=== PATIENT | male | born 1955 | race African-American/Black ===

== ENCOUNTER → 2021-05-16 | Outpatient (CLI) | payer OTHER ==
--- NOTE | 2021-05-16 12:43 | CT ---
EXAMINATION TYPE: CT abdomen wo con DATE OF EXAM: 05/16/2021 HISTORY: Upper Abdominal pain and distension CT DLP: 697.9 mGycm. Automated Exposure Control for Dose Reduction was Utilized. TECHNIQUE: CT scan of the abdomen is performed with oral but without IV contrast as requested. COMPARISON: NONE FINDINGS: Within the limitations of a non-contrast study, the following observations are made. LUNG BASES: No significant abnormality is appreciated. LIVER/GB: No significant abnormality is appreciated. PANCREAS: No significant abnormality is seen. SPLEEN: No significant abnormality is seen. ADRENALS: No significant abnormality is seen. KIDNEYS: No significant abnormality is seen. BOWEL: Oral contrast does not reach level of the terminal ileum making evaluation of distal bowel sli ghtly suboptimal. Normal-appearing appendix from cecum. There are scattered colonic diverticula great est in the transverse and visualized portion of the sigmoid colon. No CT evidence for acute diverticu litis. No suspicious small or large bowel dilatation. LYMPH NODES: No greater than 1cm abdominal lymph nodes are appreciated. OSSEOUS STRUCTURES: Straightening of spine with mild to moderate multilevel anterior and lateral spur ring. Multilevel facet arthropathy in the lower lumbar spine. OTHER: No significant additional abnormality is seen. IMPRESSION: Scattered colonic diverticulosis without CT evidence for acute diverticulitis. No bowel o bstruction or intra-abdominal ascites. No acute findings evident.
== END | disposition home or self-care (01) ==
LOC: RADCTMAIN 11:58
DX: K57.30 Diverticulosis of large intestine without perforation or abscess without bleeding (principal)
CPT/HCPCS: 74150

== ENCOUNTER 2021-07-09 06:44 | Day surgery (SDC) | payer OTHER ==
[2021-07-08 10:01] VITALS: BMI 30.5
[2021-07-09] MEDS: LACTATED RINGERS 1,000 ML IV SCH ×2 (07:30→07:56)
[2021-07-09 07:32] VITALS: RESP 16; TEMP 96.4
[2021-07-09 07:33] LABS: Glucose,Whole Blood 144 mg/dL (75-99)
[2021-07-09] MEDS ORDERED: PROPOFOL 10 MG/ML 20 ML VIAL IV ONE (08:04)
--- NOTE | 2021-07-09 08:21 | P.PCN ---
Date of Procedure: 07/09/21 Procedure(s) Performed: BRIEF HISTORY: Patient is a 65-year-old pleasant [place]ian male scheduled for an elective colonoscopy as a part of screening for colorectal neoplasia. PROCEDURE PERFORMED: Colonoscopy. PREOPERATIVE DIAGNOSIS: Screening for colon cancer. IV sedation per Anesthesia. PROCEDURE: After informed consent was obtained, the patient, was brought into the endoscopy unit. IV sedation was administered by Anesthesia under continuous monitoring. Digital rectal examination was normal. Initially the Olympus CF-160 flexible video colonoscope was then inserted in the rectum, gradually advanced into the cecum without any difficulty. Careful examination was performed as the scope was gradually being withdrawn. Ileocecal valve and the appendiceal orifice were visualized and appeared normal. Prep was excellent. Mucosa of the cecum, ascending colon, transverse colon, descending colon, sigmoid colon, and rectum appeared normal. Scattered diffuse diverticulosis seen. Retroflexion was performed in the rectum and grade 2 internal hemorrhoids were seen. The patient tolerated the procedure well. IMPRESSION: Normal-appearing colon from rectum to cecum with no evidence of colorectal neoplasia Scattered diffuse diverticulosis Grade 2 internal hemorrhoids RECOMMENDATIONS: Findings of this examination were discussed with the patient as well as his family. He was advised to have a repeat screening colonoscopy in 10 years..
[2021-07-09 09:23] VITALS: BP 135/94; PULSE 85
== END 2021-07-09 09:10 | disposition home or self-care (01) ==
LOC: ORWHC2ENDO 06:44
PROVIDERS: ATTEND Internal Medicine Gastroenterology
DX: Z12.11 Encounter for screening for malignant neoplasm of colon (principal)
CPT/HCPCS: 45378; J2704

== ENCOUNTER 2022-03-29 08:00 | Emergency (ER) | payer OTHER ==
[2022-03-29 08:08] VITALS: BP 108/67; PULSE 110; RESP 20; TEMP 97.5
[2022-03-29] MEDS ORDERED: predniSONE 50 MG TAB PO STA (08:45)
[2022-03-29] MEDS ORDERED: diphenhydrAMINE 50 MG CAP PO STA (08:45)
[2022-03-29] MEDS ORDERED: FAMOTIDINE 20 MG TAB PO STA (08:45)
--- NOTE | 2022-03-29 08:46 | ED ---
General Adult HPI - General Chief complaint: Skin/Abscess/Foreign Body Stated complaint: Rash Time Seen by Provider: 03/29/22 08:09 Source: patient, RN notes reviewed Mode of arrival: ambulatory Limitations: no limitations - History of Present Illness Initial comments: 66-year-old male present emergency department with chief complaint of ALLERGIC reaction. Patient states he has facial swelling, itchiness.. He states his started overnight significant eating food. Patient states it for. Patient did not take any current medications he does feel the symptoms are improving denies any shortness breath or any difficulty swallowing. Patient has NO KNOWN DRUG ALLERGIES no recent medication changes. - Related Data Home Medications Medication Instructions Recorded Confirmed Metformin (Unknown Dose) 1 tab PO DAILY 07/08/21 07/09/21 Triamterene/Hydrochlorothiazid 1 each PO DAILY 07/08/21 07/09/21 [Triamterene-Hctz 75-50 mg Tab] amLODIPine [Norvasc] 10 mg PO DAILY 07/08/21 07/09/21 Previous Rx's Medication Instructions Recorded diphenhydrAMINE [Benadryl] 50 mg PO QID PRN #20 capsule 03/29/22 predniSONE 50 mg PO DAILY #3 tab 03/29/22 Allergies Allergy/AdvReac Type Severity Reaction Status Date / Time No Known Allergies Allergy Verified 03/29/22 08:08 Review of Systems ROS Statement: Those systems with pertinent positive or pertinent negative responses have been documented in the HPI. ROS Other: All systems not noted in ROS Statement are negative. Past Medical History Past Medical History: Diabetes Mellitus, GERD/Reflux, Hyperlipidemia, Hypertension History of Any Multi-Drug Resistant Organisms: None Reported Past Surgical History: No Surgical Hx Reported Past Anesthesia/Blood Transfusion Reactions: No Reported Reaction Additional Past Anesthesia/Blood Transfusion Reaction / Comment(s): Has never had General Anesthesia. Past Psychological History: No Psychological Hx Reported Smoking Status: Never smoker Past Alcohol Use History: Occasional Past Drug Use History: Marijuana - Past Family History Mother Family Medical History: Cancer General Exam Limitations: no limitations General appearance: alert, in no apparent distress Head exam: Present: atraumatic, normocephalic, normal inspection Eye exam: Present: normal appearance, PERRL, EOMI. Absent: scleral icterus, conjunctival injection, periorbital swelling ENT exam: Present: normal exam, normal oropharynx, mucous membranes moist Neck exam: Present: normal inspection, full ROM. Absent: tenderness, meningismus, lymphadenopathy Respiratory exam: Present: normal lung sounds bilaterally. Absent: respiratory distress, wheezes, rales, rhonchi, stridor Cardiovascular Exam: Present: regular rate, normal rhythm, normal heart sounds. Absent: systolic murmur, diastolic murmur, rubs, gallop, clicks GI/Abdominal exam: Present: soft, normal bowel sounds. Absent: distended, tenderness, guarding, rebound, rigid Course Vital Signs 03/29/22 08:06 Temperature 97.5 F L Pulse Rate 110 H Respiratory 20 Rate Blood Pressure 108/67 O2 Sat by Pulse 98 Oximetry Medical Decision Making - Medical Decision Making Patient was treated for ALLERGIC reaction of present, Benadryl. Patient will be discharged in stable condition return parameters were discussed. Disposition Clinical Impression: Allergic reaction Disposition: HOME SELF-CARE Condition: Stable Instructions (If sedation given, give patient instructions): General Allergic Reaction (ED) Additional Instructions: Please return to the Emergency Department if symptoms worsen or any other concerns. Prescriptions: diphenhydrAMINE [Benadryl] 50 mg PO QID PRN #20 capsule PRN Reason: Allergic Reaction predniSONE 50 mg PO DAILY #3 tab Is patient prescribed a controlled substance at d/c from ED?: No Referrals: [facility],Clinic [Primary Care Provider] - 1-2 days Time of Disposition: 08:46
== END 2022-03-29 08:54 | disposition home or self-care (01) ==
LOC: EC 08:00
DX: T78.40XA Allergy, unspecified, initial encounter (principal); I10 Essential (primary) hypertension; E11.9 Type 2 diabetes mellitus without complications; K21.9 Gastro-esophageal reflux disease without esophagitis; E78.5 Hyperlipidemia, unspecified; F12.90 Cannabis use, unspecified, uncomplicated; Z79.84 Long term (current) use of oral hypoglycemic drugs; Z79.83 Long term (current) use of bisphosphonates; Z79.899 Other long term (current) drug therapy
CPT/HCPCS: 99283; J7512

== ENCOUNTER 2022-07-03 21:41 | Observation (INO) | payer OTHER ==
[2022-07-03] MEDS ORDERED: DEXAMETHASONE SOD PHOSPHATE 10 MG/ML 1 ML VIAL IM STA (22:08)
[2022-07-03] MEDS ORDERED: hydrOXYzine HCL 50 MG/ML 1 ML VIAL IM STA (22:09)
[2022-07-03] MEDS ORDERED: FAMOTIDINE 20 MG TAB PO STA (22:09)
--- NOTE | 2022-07-03 22:25 | ED ---
Skin/Abscess/FB HPI - General Chief complaint: Skin/Abscess/Foreign Body Stated complaint: Allergic reaction Time Seen by Provider: 07/03/22 22:03 Source: patient, RN notes reviewed Mode of arrival: ambulatory Limitations: no limitations - History of Present Illness Initial comments: This is a pleasant 66-year-old male with a history of diabetes mellitus, hypertension, and hyperlipidemia. Patient states he started getting hives a few hours ago. Patient describing generalized hives on the torso and extremities with itching. Patient took 2 Benadryl and it did improve somewhat. Patient states she had some puffiness around his eyes. No oral or throat symptoms. No wheezing or shortness of breath. Patient states he smoked some marijuana, otherwise was not exposed to anything out of the ordinary. No new foods. No new medications. No new detergents. Has not had any fever or chills. No pain. No headache, no fever or chills, no changes in vision or hearing, no sore throat or difficulty with speech, no neck pain, no chest pain or shortness of breath, no abdominal pain, no nausea or vomiting, no changes in urination or bowel movements, no numbness or tingling, no extremity pain, no skin rashes or lesions. Past medical, surgical, social, and family history reviewed. - Related Data Home Medications Medication Instructions Recorded Confirmed Metformin (Unknown Dose) 1 tab PO DAILY 07/08/21 07/09/21 Triamterene/Hydrochlorothiazid 1 each PO DAILY 07/08/21 07/09/21 [Triamterene-Hctz 75-50 mg Tab] amLODIPine [Norvasc] 10 mg PO DAILY 07/08/21 07/09/21 Previous Rx's Medication Instructions Recorded diphenhydrAMINE [Benadryl] 50 mg PO QID PRN #20 capsule 03/29/22 predniSONE 50 mg PO DAILY #3 tab 03/29/22 Famotidine [Pepcid] 20 mg PO BID #10 tablet 07/03/22 Allergies Allergy/AdvReac Type Severity Reaction Status Date / Time No Known Allergies Allergy Verified 07/03/22 21:58 Review of Systems ROS Statement: Those systems with pertinent positive or pertinent negative responses have been documented in the HPI. ROS Other: All systems not noted in ROS Statement are negative. Past Medical History Past Medical History: Diabetes Mellitus, GERD/Reflux, Hyperlipidemia, Hypertension History of Any Multi-Drug Resistant Organisms: None Reported Past Surgical History: No Surgical Hx Reported Past Anesthesia/Blood Transfusion Reactions: No Reported Reaction Additional Past Anesthesia/Blood Transfusion Reaction / Comment(s): Has never had General Anesthesia. Past Psychological History: No Psychological Hx Reported Smoking Status: Never smoker Past Alcohol Use History: Occasional Past Drug Use History: Marijuana - Past Family History Mother Family Medical History: Cancer General Exam - General Exam Comments Initial Comments: She does have some puffiness around his eyes. No erythema. No evidence of infectious process. Oropharynx is clear. There is no respiratory distress. Vital signs stable, patient afebrile. No distress, cranial nerves II through XII grossly intact Limitations: no limitations General appearance: alert, in no apparent distress Head exam: Present: atraumatic, normocephalic, normal inspection Eye exam: Present: normal appearance, PERRL, EOMI. Absent: scleral icterus, conjunctival injection, periorbital swelling ENT exam: Present: normal exam, normal oropharynx, mucous membranes dry, mucous membranes moist, normal external ear exam Neck exam: Present: normal inspection, full ROM. Absent: tenderness, meningismus, lymphadenopathy Respiratory exam: Present: normal lung sounds bilaterally. Absent: respiratory distress, wheezes, rales, rhonchi, stridor, chest wall tenderness, accessory muscle use, decreased breath sounds, prolonged expiratory Cardiovascular Exam: Present: regular rate, normal rhythm, normal heart sounds. Absent: systolic murmur, diastolic murmur, rubs, gallop, clicks GI/Abdominal exam: Present: soft, normal bowel sounds. Absent: distended, tenderness, guarding, rebound, rigid Extremities exam: Present: normal inspection, full ROM, normal capillary refill. Absent: tenderness, pedal edema, joint swelling, calf tenderness Back exam: Present: normal inspection Neurological exam: Present: alert, oriented X3, CN II-XII intact. Absent: motor sensory deficit Psychiatric exam: Present: normal affect, normal mood Skin exam: Present: warm, dry, intact, normal color, urticaria (Mild noted on the torso, no palmar or plantar lesions). Absent: rash, cyanosis, diaphoretic, erythema, vesicles, petechiae, pallor, mottled, abrasion Course Vital Signs 07/03/22 21:55 Temperature 98.1 F Pulse Rate 101 H Respiratory 20 Rate Blood Pressure 106/80 O2 Sat by Pulse 98 Oximetry - Reevaluation(s) Reevaluation #1: 07/03/22 23:01 Medical record is reviewed Symptoms are improved here in the emergency department Patient is informed of results and questions answered Patient in no distress Medical Decision Making - Medical Decision Making Patient presents with nonspecific urticaria. Did not appear to be consistent with anaphylactic reaction. No adventitious lung sounds. No distress. We will give one dose of dexamethasone as the patient is diabetic. We'll then treated with 3-4 days of antihistamines. She'll plan discussed with the patient. Strict return parameters. Patient concurs with this treatment plan. Suspect the patient may have reacted to something in the marijuana. However, other antigens could be within the differential. Appear to be consistent with systemic disease or gallbladder disease. Not consistent with erythema multiforme or dangerous skin infections or inflammatory reaction such as Khan-Florian syndrome. Patient was told to return to the ER for any signs or symptoms worsen. Told to return immediately if any other problems arise. All questions answered. Treatment plan discussed. Patient in agreement Every effort has been made to ensure accuracy of this dictation. However, due to the limitations of electronic medical records and dictation devices, errors in charting still occur. Supervising physician Dr. Kirkland Disposition Clinical Impression: Urticaria Disposition: HOME SELF-CARE Condition: Good Instructions (If sedation given, give patient instructions): Urticaria (ED) Additional Instructions: Continue Benadryl as directed on the bottle for the next 3-4 days. Follow-up with your regular physician as directed. Return to the ER immediately if any symptoms worsen, new symptoms arise, or any other problems develop. Is patient prescribed a controlled substance at d/c from ED?: No Referrals: [facility],Clinic [Primary Care Provider] - 1-2 days Time of Disposition: 23:02
[2022-07-04 01:27] LABS: Glucose,Whole Blood 178 mg/dL (70-110)
[2022-07-04] MEDS ORDERED: NALOXONE 0.4 MG/ML 1 ML VIAL IV PRN (02:10)
[2022-07-04] MEDS ORDERED: ONDANSETRON 4 MG/2 ML VIAL IVP PRN (02:10)
[2022-07-04] MEDS ORDERED: ACETAMINOPHEN TAB 325 MG TAB PO PRN (02:10)
[2022-07-04] MEDS ORDERED: IPRATROPIUM-ALBUTEROL 3 ML NEB INHALATION STA (02:12)
[2022-07-04] MEDS ORDERED: ALBUTEROL NEBULIZED 2.5 MG/3 ML INHALATION PRN (02:12)
[2022-07-04] MEDS ORDERED: DEXTROSE 50% SYRINGE 50 ML IVP PRN ×2 (02:13)
[2022-07-04] MEDS ORDERED: SODIUM CHLORIDE 0.9% 1,000 ML IV SCH (02:15)
[2022-07-04] MEDS: SODIUM CHLORIDE 0.9% 1,000 ML IV STA ×2 (02:43)
[2022-07-04 02:46] LABS: ALT 39 U/L (4-49); AST 36 U/L (17-59); African American GFR (CKD) >90 (>60 ml/min/1.73 sqM); Albumin 4.8 g/dL (3.5-5.0); Alkaline Phosphatase 81 U/L (38-126); Anion Gap 11 mmol/L; Blood Urea Nitrogen 18 mg/dL (9-20); Calcium 10.2 mg/dL (8.4-10.2); Carbon Dioxide 24 mmol/L (22-30); Chloride 101 mmol/L (98-107); Glucose 184 mg/dL (74-99); Non-African American GFR(CKD) 84 (>60 ml/min/1.73 sqM); Potassium 4.2 mmol/L (3.5-5.1); Sodium 136 mmol/L (137-145); Total Bilirubin 0.7 mg/dL (0.2-1.3); Total Protein 8.3 g/dL (6.3-8.2)
[2022-07-04 02:49] LABS: Basophils % (A) 0 %; Eosinophils # (A) 0.2 k/uL (0-0.7); Eosinophils % (A) 1 %; HCT 45.8 % (39.0-53.0); HGB 15.1 gm/dL (13.0-17.5); Hypochromasia Slight; Lymphocytes # (A) 1.4 k/uL (1.0-4.8); Lymphocytes % (A) 10 %; MCH 24.8 pg (25.0-35.0); MCHC 32.9 g/dL (31.0-37.0); MCV 75.5 fL (80.0-100.0); Mean Platelet Volume 7.3; Microcytosis Slight; Monocytes # (A) 0.3 k/uL (0-1.0); Monocytes % (A) 2 %; Neutrophils # (A) 12.7 k/uL (1.3-7.7); Neutrophils % (A) 87 %; Platelet Count 533 k/uL (150-450); RBC 6.08 m/uL (4.30-5.90); RDW 13.9 % (11.5-15.5); WBC 14.6 k/uL (3.8-10.6)
--- NOTE | 2022-07-04 05:04 | P.HPIM ---
History of Present Illness H&P Date: 07/04/22 Chief Complaint: skin rash 66 year old male with DM , hypertension patient coming in due to sudden onset urticarial type of rash over his abd and extremities. patient denies any changes in his meds. however he does admit to smoking some marijuana that is flavored and almost immediately after he started noticed these skin changes. he never experienced any similar reaction in the past , and denies any allergies he was noted later to having tongue swelling , but denies any difficulty in breathing, or swallowing . patient was given H2 blockers, benadryl, epi, and steriods in the ED to help control his symptoms during the interview he continues to have muffled speech blood work showd leukocytosis and microcytosis without anemia , he denies any GI bleeding Review of Systems Pertinent positives as noted in HPI. All other systems were reviewed and are negative Past Medical History Past Medical History: Diabetes Mellitus, GERD/Reflux, Hyperlipidemia, Hypertension History of Any Multi-Drug Resistant Organisms: None Reported Past Surgical History: No Surgical Hx Reported Past Anesthesia/Blood Transfusion Reactions: No Reported Reaction Additional Past Anesthesia/Blood Transfusion Reaction / Comment(s): Has never had General Anesthesia. Past Psychological History: No Psychological Hx Reported Smoking Status: Never smoker Past Alcohol Use History: Occasional Past Drug Use History: Marijuana - Past Family History Mother Family Medical History: Cancer Medications and Allergies Home Medications Medication Instructions Recorded Confirmed Type Metformin (Unknown Dose) 1 tab PO DAILY 07/08/21 07/09/21 History Triamterene/Hydrochlorothiazid 1 each PO DAILY 07/08/21 07/09/21 History [Triamterene-Hctz 75-50 mg Tab] amLODIPine [Norvasc] 10 mg PO DAILY 07/08/21 07/09/21 History diphenhydrAMINE [Benadryl] 50 mg PO QID PRN #20 capsule 03/29/22 Rx predniSONE 50 mg PO DAILY #3 tab 03/29/22 Rx Famotidine [Pepcid] 20 mg PO BID #10 tablet 07/03/22 Rx Allergies Allergy/AdvReac Type Severity Reaction Status Date / Time No Known Allergies Allergy Verified 07/03/22 21:58 Physical Exam Vitals: Vital Signs Temp Pulse Resp BP Pulse Ox 07/04/22 03:17 89 18 103/85 97 07/04/22 03:07 88 07/04/22 02:52 87 07/04/22 02:44 87 16 122/78 98 07/04/22 00:35 95 16 119/86 98 07/03/22 21:55 98.1 F 101 H 20 106/80 98 Intake and Output 07/03/22 07/03/22 07/04/22 14:59 22:59 06:59 Other: Weight 93.44 kg Constitutional: No acute distress, muffled speech Eyes: Anicteric sclerae, moist conjunctiva, Pupils equal round reactive to light ENMT: NC/AT swollen tongue with loss of rugae, no drooling , no stridors Oropharynx clear, no erythema, or exudates Neck: Supple, no masses, or JVD No carotid bruits No thyromegaly Lungs: Clear to auscultation Clear to percussion Normal respiratory effort, no accessory muscle use Cardiovascular: Heart regular in rate and rhythm, No murmurs, gallops, or rubs No peripheral edema Abdominal: Soft Nontender, no guarding, rebound or rigidity Abdomen moving with respiration Normoactive bowel sounds No hepatomegaly, No splenomegaly No palpable mass No abdominal wall hernia noted Skin: Normal temperature, tone, texture, turgor No induration No subcutaneous nodules No rash, lesions No ulcers Extremities: No digital cyanosis No clubbing Pedal pulses intact and symmetrical Radial pulses intact and symmetrical No calf tenderness Psychiatric: Alert and oriented to person, place and time Appropriate affect fair judgement Neuro Muscles Strength 5/5 in all 4 extremities Sensation to light touch grossly present throughout Cranial nerves II-XII grossly intact Lymphatics: no palpable cervical or supraclavicular lymph nodes Results CBC & Chem 7: 07/04/22 02:31 07/04/22 02:31 Labs: Abnormal Lab Results - Last 24 Hours (Table) 07/04/22 07/04/22 07/04/22 Range/Units 01:24 02:31 02:31 WBC 14.6 H (3.8-10.6) k/uL RBC 6.08 H (4.30-5.90) m/uL MCV 75.5 L (80.0-100.0) fL MCH 24.8 L (25.0-35.0) pg Plt Count 533 H (150-450) k/uL Neutrophils # 12.7 H (1.3-7.7) k/uL Sodium 136 L (137-145) mmol/L Glucose 184 H (74-99) mg/dL POC Glucose (mg/dL) 178 H (70-110) mg/dL Total Protein 8.3 H (6.3-8.2) g/dL Assessment and Plan Assessment: acute allergic reaction with angioedema s/p steriods , H2 blockers, antihistamine , and epi continue to monitor airways supportive care monitor vital signs cardiac tele chronic conditions DM hypertension resume home meds insulin sliding scale full code DVT PPX heparin sc tid
[2022-07-04 07:29] LABS: Glucose,Whole Blood 188 mg/dL (70-110)
[2022-07-04] MEDS: INSULIN ASPART (NovoLOG) 100 UNIT/ML VIAL SQ SCH ×2 (07:37→13:34)
[2022-07-04] MEDS ORDERED: HEPARIN SODIUM,PORCINE/PF 5,000 UNIT/0.5 ML SYRINGE SQ SCH (08:00)
[2022-07-04 13:19] LABS: Glucose,Whole Blood 118 mg/dL (70-110)
--- NOTE | 2022-07-04 13:40 | P.DS ---
Providers Date of admission: 07/04/22 05:11 Expected date of discharge: 07/04/22 Attending physician: Sharron Faye MD Primary care physician: [facility] Hospital Course: Discharge Diagnosis: Anaphylaxis with angioedema, patient was given intramuscular epinephrine 0.3 mg 1 dose, Pepcid, Vistaril, and Decadron. He was admitted to observation unit and closely monitored for any rebound signs. Patient had full resolution of angioedema and rash. Patient monitored for greater than 8 hours after receiving intramuscular epinephrine showing no signs of rebound effect. Patient medically stable for discharge at this time he was advised to avoid any and all contact with previously purchased marijuana in which pt reported triggered this ALLERGIC reaction, pt verbalized understanding. Patient being discharged home with epinephrine pen to be used only if patient ever experiences severe ALLERGIC reaction again and patient was instructed if he needed to use he must go straight to the hospital or call 911 if he will require close medical monitoring to ensure no rebound reactions occur. Hypertension, monitor home blood pressure and continue daily medication regimen with amlodipine in benazepril Hyperlipidemia, continue daily medication regimen with atorvastatin. Type II icv-ckjzzrn-rmqxdqrrn diabetes mellitus, continue daily medication regimen with metformin 500 mg twice a day. GERD, continue daily medication regimen with omeprazole. Hospital Course: Patient is a very pleasant 66-year-old male with a past medical history of hypertension, hyperlipidemia, type II eou-cazhkob-fharobmhy diabetes mellitus, and GERD. He presented to the emergency department with a chief complaint of urticarial rash covering his abdomen and upper extremities. Patient denied having any changes in medications, eating different foods, new soaps or lotions, or new laundry detergent or cleaning supplies. He does however report smoking some flavored marijuana and immediately began noticing an itchy rash to appear first just around his mouth and quickly spread. Shortly after rash was covering abdomen and upper extremities he began noticing some swelling in his tongue and came to the ER for evaluation. CBC and CMP reviewed. CBC showing WBC count of 14.6 with elevated neutrophils of 12.7 and thrombocytosis with platelet count of 533. Labs otherwise showing no significant abnormalities. In the emergency department patient was given intramuscular epinephrine 0.3 mg 1 dose, Pepcid, Vistaril, and Decadron. Patient admitted under our services to observation unit for continued monitoring to observe for any rebound signs or symptoms. Patient had full resolution of angioedema and rash. Patient monitored for greater than 8 hours after receiving intramuscular epinephrine showing no signs of rebound effect. Patient medically stable for discharge at this time he was advised to avoid any and all contact with previously purchased marijuana in which pt reported triggered this ALLERGIC reaction, pt verbalized understanding. Patient being discharged home with epinephrine pen to be used only if patient ever experiences severe ALLERGIC reaction again and patient was instructed if he needed to use he must go straight to the hospital or call 911 if he will require close medical monitoring to ensure no rebound reactions occur. Patient medically stable for discharge home at this time and to follow up outpatient with his PCP in 1-2 days. Physical exam: Vital signs reviewed and stable. General: Nontoxic, no distress and appears stated age. Derm: Skin warm and dry, normal coloration for ethnicity. No rash or hives noted. Head: Atraumatic, normocephalic and symmetric. Eyes: EOMs intact, no lid lag, and anicteric sclera Mouth: no lip lesions, mucus membranes moist. No angioedema. Cardiovascular: regular rate and rhythm with normal S1S2, no murmur, positive posterior tibial pulses bilaterally, and cap refill < 2 seconds. Lungs: Respirations even, regular, and unlabored on room air. Lungs CTA bilaterally, no rhonchi, no rales, no wheezing, and no accessory muscle usage. Abdominal: soft, nontender to palpation, no guarding, no appreciable organomegaly Ext: ROM intact. No gross muscle atrophy, no edema, no contractures Neuro: Speech clear, face symmetrical and CN II-XII grossly intact with no noted focal neuro deficits Psych: Alert and oriented to person, place, time, and situation. Appropriate and pleasant affect. A total of 35 minutes of time were spent preparing this complex discharge summary. Pt was discharged on 07/04/22 at 1:23 PM. Timur Izquierdo NP rendered care for this patient independently, reviewed the findings and plan as documented in the note above. I did not physically speak with or examine the patient on this date. Patient Condition at Discharge: Stable Plan - Discharge Summary New Discharge Prescriptions: New Famotidine [Pepcid] 20 mg PO BID #10 tablet EPINEPHrine (Auto Inject) [Epipen] 0.3 mg IM ONCE PRN #1 each PRN Reason: Anaphylaxis Continue amLODIPine [Norvasc] 10 mg PO DAILY Benazepril HCl 20 mg PO DAILY metFORMIN HCL [Glucophage] 500 mg PO BID Omeprazole 20 mg PO DAILY Atorvastatin [Lipitor] 80 mg PO DAILY Discharge Medication List amLODIPine [Norvasc] 10 mg PO DAILY 07/08/21 [History] Famotidine [Pepcid] 20 mg PO BID #10 tablet 07/03/22 [Rx] Atorvastatin [Lipitor] 80 mg PO DAILY 07/04/22 [History] Benazepril HCl 20 mg PO DAILY 07/04/22 [History] EPINEPHrine (Auto Inject) [Epipen] 0.3 mg IM ONCE PRN #1 each 07/04/22 [Rx] Omeprazole 20 mg PO DAILY 07/04/22 [History] metFORMIN HCL [Glucophage] 500 mg PO BID 07/04/22 [History] Follow up Appointment(s)/Referral(s): [facility],Clinic [Primary Care Provider] - 1-2 days Patient Instructions/Handouts: Urticaria (ED), Anaphylaxis (DC) Activity/Diet/Wound Care/Special Instructions: Continue Benadryl as directed on the bottle for the next 3-4 days. Follow-up with your regular physician as directed. Return to the ER immediately if any symptoms return, new symptoms arise, or any other problems develop. Discharge Disposition: HOME SELF-CARE
[2022-07-04 19:12] VITALS: BP 135/87; PULSE 87; RESP 19; TEMP 98.6
== END 2022-07-04 13:57 | disposition home or self-care (01) ==
LOC: EC 21:41 → 6NMEDSUR 07-04 05:11
PROVIDERS: ADMIT Internal Medicine; ATTEND Internal Medicine
DX: T78.3XXA Angioneurotic edema, initial encounter (principal); E11.9 Type 2 diabetes mellitus without complications; I10 Essential (primary) hypertension; E78.5 Hyperlipidemia, unspecified; K21.9 Gastro-esophageal reflux disease without esophagitis; D72.829 Elevated white blood cell count, unspecified; Z79.84 Long term (current) use of oral hypoglycemic drugs; Z79.899 Other long term (current) drug therapy; Z79.52 Long term (current) use of systemic steroids
CPT/HCPCS: 96372 ×2; 99285; 36415; 94640; 80053; 85025; 83036; G0378; J0171; J1100; J3410; J1644

== ENCOUNTER → 2022-12-22 | Outpatient (CLI) | payer OTHER ==
--- NOTE | 2022-12-22 14:47 | XR ---
"EXAMINATION TYPE: XR chest 2V DATE OF EXAM: 12/22/2022 2:36 PM COMPARISON: None TECHNIQUE: XR chest 2V Frontal and lateral views of the chest. CLINICAL INDICATION:Male, 67 years old with history of R05 cough; FINDINGS: Lungs/Pleura: Moderate to large right pleural effusion with consolidation in the right upper lung. Th e left lung is clear. Pulmonary vascularity: Unremarkable. Heart/mediastinum: Cardiomediastinal silhouette is unremarkable. Musculoskeletal: No acute osseous pathology. IMPRESSION: Moderate to large right pleural effusion with consolidation in the right upper lung. This could repre sent pleural effusion with atelectasis/pneumonia however underlying mass is not excluded. Further barbie luation with CT chest with IV contrast is recommended. A Yellow level critical message alert has been initiated for Amara Mckee MD via the [employer] | Critical Results System on 12/22/2022 2:41 PM. This message alert has been sent to Amara Mckee MD via the preferences provided by the clinician for the receipt of Radiology Critical Findings. [facility] [id number]."
--- NOTE | 2022-12-22 14:47 | XR ---
EXAMINATION TYPE: XR shoulder limited RT DATE OF EXAM: 12/22/2022 2:35 PM INDICATION: Patient age:Male; 67 years old; Reason for study: M25.511 pain; COMPARISON: Chest radiograph of the same date. TECHNIQUE: The right shoulder was examined in AP and scapular Y-view projections.. FINDINGS: No evidence of acute osseous pathology, joint dislocation, or soft tissue swelling. Minimal AC joint arthropathy with narrowing and spurring noted. Please refer to dedicated chest radiograph the same da y for findings. IMPRESSION: 1. No acute osseous pathology. 2. Minimal right AC joint arthropathy.
== END | disposition home or self-care (01) ==
LOC: RADXRMAIN 14:18
PROVIDERS: ATTEND Internal Medicine
DX: J90 Pleural effusion, not elsewhere classified (principal); M19.011 Primary osteoarthritis, right shoulder; R05.9 Cough, unspecified
CPT/HCPCS: 71046

== ENCOUNTER 2023-01-01 12:13 | Day surgery (SDC) | payer MEDICARE, OTHER ==
[~2023-01-01 12:13] MED LIST: SODIUM CHLORIDE 0.9% 500 ML 500 ML in EMPTY BAG 1 BAG IV PRN
[2023-01-01 12:27] VITALS: BP 114/73; RESP 16; TEMP 97.7
[2023-01-01 12:32] VITALS: PULSE 108
[2023-01-01] MEDS ORDERED: ATROPINE SULFATE 0.4 MG/ML 1 ML VIAL IM STA (12:51)
--- NOTE | 2023-01-01 14:37 | XR ---
EXAMINATION TYPE: XR chest 1V portable DATE OF EXAM: 01/01/2023 HISTORY: Shortness of breath. COMPARISON: 12/22/2022 TECHNIQUE: Single view of the chest is submitted. FINDINGS: Demonstrated are scattered senescent parenchymal change. Again noted is moderate opacification right lung with aerated right upper lobe. Air bronchograms are noted. The findings are felt to reflect a combination of infiltrate and effusion. Underlying mass or atelectasis is not excluded. The left lung demonstrates mild hyperinflation at this time. The heart is stable. Hilar and mediastinal structures are within normal limits. Degenerative changes are seen of the dorsal spine. IMPRESSION: 1. Again noted is moderate opacification right lung with aerated right upper lobe. Air bronchograms are noted. The findings are felt to reflect a combination of infiltrate and effusion. Underlying mass or atelectasis is not excluded.
--- NOTE | 2023-01-01 20:30 | PCN ---
PROCEDURE NOTE PULMONARY/CRITICAL CARE PROCEDURE NOTE: PROCEDURE PERFORMED: Right thoracentesis. PREOPERATIVE DIAGNOSIS: Right pleural effusion. POSTOPERATIVE DIAGNOSIS: Right pleural effusion. MOBILE PHLEBOTOMIST: Dr. Olive Worthington. DESCRIPTION OF PROCEDURE: There was informed consent and universal timeout. A time-out was completed verifying correct patient, procedure, site, positioning , and implant (s) or special equipment if applicable. Ultrasound guidance was used and appropriate fluid pocket was identified and marked. Patient was positioned, prepped and draped in usual sterile fashion. Lidocaine was used to anesthetize the area. A Thoracentesis catheter was introduced into the pleural space and fluid was removed. Blood loss was none. A chest x-ray was ordered to evaluate for pneumothorax. Total Fluid Removed: Roughly 1.2 L. Color of Fluid: Bloody. Fluid was sent for analysis including cytology and microbiology as well as chemistry. There was ultrasound marking of the right pleural space. MMODL / IJN: [id number] /
== END 2023-01-01 15:28 | disposition home or self-care (01) ==
LOC: PROCWHC3 12:13
PROVIDERS: ATTEND Internal Medicine Critical Care Medicine
DX: J90 Pleural effusion, not elsewhere classified (principal)
CPT/HCPCS: 88108; 88305; 71045; 32554; J0461

== ENCOUNTER → 2023-01-01 | Outpatient (CLI) | payer MEDICARE, OTHER ==
--- NOTE | 2023-01-01 10:30 | US ---
EXAMINATION TYPE: US chest DATE OF EXAM: 01/01/2023 COMPARISON: NONE CLINICAL INDICATION: Male, 67 years old with history of J90 PLEURAL EFFUSION; TECHNIQUE: Targeted ultrasound of the posterior lower right hemithorax EXAM MEASUREMENTS: Right Pleural Effusion pocket size: 11.9 cm Right skin surface to fluid distance: 4.0 cm Right side marked for possible thoracentesis outside the dept. Pulmonologists are able to review the images in the patient?s EMR. IMPRESSIONS: As above
[2023-01-02 02:36] LABS: T. Protein, Body Fluid Source Pleural Fluid; Total Protein, Body Fluid >3600 mg/dL
[2023-01-02 02:48] LABS: LDH, Body Fluid Source Pleural Fluid
[2023-01-02 02:53] LABS: Glucose, BF Source Pleural Fluid; Glucose, Body Fluid <2 mg/dL
[2023-01-02 04:58] LABS: Appearance,BF Grossly Bloody (Clear)
== END | disposition home or self-care (01) ==
LOC: RADUSWWP 10:05
PROVIDERS: ATTEND Internal Medicine Critical Care Medicine
DX: J90 Pleural effusion, not elsewhere classified (principal)
CPT/HCPCS: 76604; 82945; 83615; 84157; 87070; 87075; 87205; 89050

== ENCOUNTER 2023-01-02 11:44 | Day surgery (SDC) | payer MEDICARE, OTHER ==
[~2023-01-02 11:44] MED LIST changes: +ATROPINE SULFATE 0.4 MG/ML 1 ML VIAL IM ONE; +LACTATED RINGERS 1,000 ML IV SCH; -SODIUM CHLORIDE 0.9% 500 ML 500 ML in EMPTY BAG 1 BAG IV PRN
[2023-01-02 12:24] LABS: Glucose,Whole Blood 132 mg/dL (70-110)
[2023-01-02 12:29] VITALS: RESP 16; TEMP 98.6
[2023-01-02] MEDS ORDERED: PROPOFOL 10 MG/ML 20 ML VIAL IV ONE (13:18)
[2023-01-02] MEDS ORDERED: fentaNYL (PF) 50 MCG/ML 2 ML AMP ONE (13:18)
[2023-01-02] MEDS ORDERED: LIDOCAINE 2% INJ 20 MG/ML (2 ML VIAL) ONE (13:18)
[2023-01-02] MEDS ORDERED: KETAMINE 10 MG/ML 20 ML VIAL ONE (13:18)
[2023-01-02] MEDS ORDERED: MIDAZOLAM 2 MG/2 ML VIAL ONE (13:18)
[2023-01-02 14:22] VITALS: BP 123/84; PULSE 96
--- NOTE | 2023-01-02 20:19 | PCN ---
PROCEDURE NOTE This is a Pulmonary/Critical Care procedure note. PROCEDURES PERFORMED: Bronchoscopy, airway examination, therapeutic lavage, bronchoalveolar lavage of right lower lobe, brushes of right lower lobe, and endobronchial biopsies of right lower lobe. PREOPERATIVE DIAGNOSIS: Rule out lung cancer. POSTOPERATIVE DIAGNOSIS: Rule out lung cancer. There were informed consent and universal time-out. The patient's procedure was done in room #[facility]. ANESTHESIA PROVIDED: General anesthesia, Dr. Serna and Jacinto Salazar CRNA. DISH CLOTH INSPECTOR: Dr. Mendoza. BATCH MIXING TRUCK DRIVER: Dr. Worthington. DESCRIPTION OF PROCEDURE: The patient was adequately sedated and being fully monitored. The bronchoscope was inserted through the right nostril. It passed through the right nasopharynx into the oropharynx. The hypopharynx appeared relatively normal. The hypopharyngeal structures including anterior commissure, true cords, false cords, arytenoids, piriform sinuses - right and left, valleculae, and epiglottis. After topicalization, the bronchoscope was pushed through the glottic opening into the trachea. Trachea appeared relatively normal. Tracheal rosalia was sharp. Left and right mainstem were topicalized. The left side was evaluated first. The left upper lobe and its 2 segments, the lingula and its 2 segments, and the left lower lobe and its 4 segments were found to be completely normal. There was no mass or tumor. The mucosa looked normal. On the right side, the right upper lobe and its 3 segments looked normal. The right middle lobe and its 2 segments also looked normal. In the right lower lobe, there were 2 areas of mucosal abnormality. The mucosa looked a little heaped and raised. It looked a little erythematous and hyperemic. These 2 areas were biopsied. We did multiple endobronchial biopsies of both of these lesions. We got good specimens, and they were sent to the laboratory for analysis. In addition, we brushed these 2 areas and then also did washes in the right lower lobe. We sent 2 distinct brushes of these lesions in the right lower lobe. The patient tolerated the procedure well. There was minimal bleeding. The patient will be recovered. There was no immediate complication. The specimens were sent to the laboratory for analysis. MMODL / IJN: [id number] /
== END 2023-01-02 14:30 | disposition home or self-care (01) ==
LOC: ORWHC2ENDO 11:44
PROVIDERS: ATTEND Internal Medicine Critical Care Medicine
DX: C34.31 Malignant neoplasm of lower lobe, right bronchus or lung (principal); J90 Pleural effusion, not elsewhere classified; I10 Essential (primary) hypertension; E78.00 Pure hypercholesterolemia, unspecified; K21.9 Gastro-esophageal reflux disease without esophagitis; Z79.899 Other long term (current) drug therapy
CPT/HCPCS: 88104; 88108; 88305; 89050; 87252; 87070; 87205; 87077; 87186; 31625; 31623; 31624; J2250; J0461; J3010; J2704; J2001

== ENCOUNTER 2023-01-29 05:16 | Inpatient (IN) | payer MEDICARE, OTHER ==
[2023-01-29 06:02] LABS: Basophils % (A) 0 %; Eosinophils # (A) 0.8 k/uL (0-0.7); Eosinophils % (A) 11 %; HCT 42.8 % (39.0-53.0); HGB 12.5 gm/dL (13.0-17.5); Hypochromasia Marked; Lymphocytes # (A) 1.8 k/uL (1.0-4.8); Lymphocytes % (A) 22 %; MCH 21.4 pg (25.0-35.0); MCHC 29.2 g/dL (31.0-37.0); MCV 73.5 fL (80.0-100.0); Mean Platelet Volume 6.6; Microcytosis Slight; Monocytes # (A) 0.4 k/uL (0-1.0); Monocytes % (A) 5 %; Neutrophils # (A) 4.6 k/uL (1.3-7.7); Neutrophils % (A) 59 %; Platelet Count 653 k/uL (150-450); RBC 5.82 m/uL (4.30-5.90); RDW 15.9 % (11.5-15.5); WBC 7.8 k/uL (3.8-10.6)
[2023-01-29 06:08] LABS: ALT 26 U/L (4-49); AST 31 U/L (17-59); African American GFR (CKD) >90 (>60 ml/min/1.73 sqM); Albumin 3.9 g/dL (3.5-5.0); Alkaline Phosphatase 110 U/L (38-126); Anion Gap 10 mmol/L; Blood Urea Nitrogen 13 mg/dL (9-20); Calcium 9.5 mg/dL (8.4-10.2); Carbon Dioxide 23 mmol/L (22-30); Chloride 103 mmol/L (98-107); Glucose 151 mg/dL (74-99); Magnesium 1.6 mg/dL (1.6-2.3); Non-African American GFR(CKD) >90 (>60 ml/min/1.73 sqM); Sodium 136 mmol/L (137-145); Total Bilirubin 0.5 mg/dL (0.2-1.3); Total Protein 7.7 g/dL (6.3-8.2)
[2023-01-29 06:13] LABS: INR 0.9 (<1.2); Partial Thromboplastin Time 23.6 sec (22.0-30.0); Prothrombin Time 9.7 sec (9.0-12.0)
[2023-01-29 06:17] LABS: NT-Pro-B-Type Natriuretic Pept 22 pg/mL
--- NOTE | 2023-01-29 06:17 | ED ---
General Adult HPI - General Chief complaint: Shortness of Breath Stated complaint: Fluid in lungs, Pain All over Time Seen by Provider: 01/29/23 05:25 Source: patient Mode of arrival: wheelchair Limitations: no limitations - History of Present Illness Initial comments: Patient is a 67-year-old male with past medical history remarkable for recurrent right-sided pleural effusions, diabetes, hypertension, hyperlipidemia states he has required thoracentesis in the past and is being worked up outpatient for the cause of this and sees Dr. Mendoza. States he's been having right-sided chest discomfort with shortness of breath that is worse. States this is what happened last time he required drainage. Denies any fevers or chills. Thinks he needs the fluid drained again. Denies any abdominal pain, nausea, vomiting. No other acute complaints at this time. Presents for further evaluation. - Related Data Home Medications Medication Instructions Recorded Confirmed amLODIPine [Norvasc] 10 mg PO DAILY 07/08/21 01/02/23 Atorvastatin [Lipitor] 80 mg PO DAILY 07/04/22 01/02/23 Benazepril HCl 20 mg PO DAILY 07/04/22 01/02/23 Omeprazole 20 mg PO DAILY 07/04/22 01/02/23 metFORMIN HCL [Glucophage] 500 mg PO BID 07/04/22 01/02/23 Previous Rx's Medication Instructions Recorded Famotidine [Pepcid] 20 mg PO BID #10 tablet 07/03/22 EPINEPHrine (Auto Inject) [Epipen] 0.3 mg IM ONCE PRN #1 each 07/04/22 Allergies Allergy/AdvReac Type Severity Reaction Status Date / Time No Known Allergies Allergy Verified 01/29/23 05:18 Review of Systems ROS Statement: Those systems with pertinent positive or pertinent negative responses have been documented in the HPI. Review of Systems: CONST: Denies fever EYES: Denies blurry vision ENT: Denies nasal congestion C/V: Endorses intermittent right-sided chest discomfort RESP: Endorses shortness of breath GI: Denies abdominal pain : Denies dysuria SKIN: Denies rash. MSK: Denies joint pain. NEURO: Denies headache ROS Other: All systems not noted in ROS Statement are negative. Past Medical History Past Medical History: Diabetes Mellitus, GERD/Reflux, Hyperlipidemia, Hypertension History of Any Multi-Drug Resistant Organisms: None Reported Past Surgical History: No Surgical Hx Reported Past Anesthesia/Blood Transfusion Reactions: No Reported Reaction Additional Past Anesthesia/Blood Transfusion Reaction / Comment(s): Has never had General Anesthesia. Past Psychological History: No Psychological Hx Reported Smoking Status: Never smoker Past Alcohol Use History: Occasional Past Drug Use History: Marijuana - Past Family History Mother Family Medical History: Cancer General Exam - General Exam Comments Initial Comments: General: Appears in mild distress. HEAD: Normal with no signs of head trauma. EYES: PERRLA, EOMI, conjunctiva normal, no discharge. ENT: Hearing grossly intact, normal oropharynx. RESPIRATORY: Reduced breath sounds over most the right lung field. Subtle breath sounds located at the apex of the right lung. No hypoxia. No increased work of breathing at rest. C/V: Regular rate and rhythm. S1 and S2 auscultated, no edema, peripheral pulses 2+ and intact throughout ABD: Abd is soft, nontender, nondistended EXT: Normal range of motion, no obvious deformity SKIN: No rashes or lesions observed on exposed skin. NEURO: Alert and oriented 4. Limitations: no limitations Course Vital Signs 01/29/23 01/29/23 05:19 05:38 Temperature 98.2 F Pulse Rate 57 L Respiratory 18 18 Rate Blood Pressure 140/96 O2 Sat by Pulse 98 Oximetry Medical Decision Making - Medical Decision Making Was pt. sent in by a medical professional or institution (, [facility], RENTAL SALES ASSOCIATE, urgent care, hospital, or usp...) When possible be specific @ -No Did you speak to anyone other than the patient for history (EMS, parent, family, police, friend...)? What history was obtained from this source @ -No Did you review nursing and triage notes (agree or disagree)? Why? @ -I reviewed and agree with nursing and triage notes Were old charts reviewed (outside hosp., previous admission, EMS record, old EKG, old radiological studies, urgent care reports/EKG's, usp records)? Report findings @ -Old charts and imaging were reviewed from December 2022. Differential Diagnosis (chest pain, altered mental status, abdominal pain women, abdominal pain men, vaginal bleeding, weakness, fever, dyspnea, syncope, headache, dizziness, GI bleed, back pain, seizure, CVA, palpatations, mental health, musculoskeletal)? @ -Differential Dyspnea: Coronary syndrome, arrhythmia, tamponade, asthma, COPD, pulmonary embolism, pneumonia, pneumothorax, pulmonary effusion, anaphylaxis, diabetic ketoacidosis, flailed chest, pulmonary contusion, diaphragmatic rupture, anemia, neuromuscular, this is not meant to be an all-inclusive list. EKG interpreted by me (3pts min.). @ -As above X-rays interpreted by me (1pt min.). @ -Chest x-ray reveals a Large right-sided pleural effusion with right lung compressive atelectasis and collapse CT interpreted by me (1pt min.). @ -None done U/S interpreted by me (1pt. min.). @ -None done What testing was considered but not performed or refused? (CT, X-rays, U/S, labs)? Why? @ -None What meds were considered but not given or refused? Why? @ -None Did you discuss the management of the patient with other professionals (professionals i.e. , PA, RENTAL SALES ASSOCIATE, lab, RT, psych nurse, elementary school social worker, manufacturing mechanic, teacher, correctional security officer, caseworker)? Give summary @ -Discussed with accepting team KEVAN Lemus of [facility] who accepted the patient. Was smoking cessation discussed for >3mins.? @ -No Was critical care preformed (if so, how long)? @ -No Were there social determinants of health that impacted care today? How? (Homelessness, low income, unemployed, alcoholism, drug addiction, transportation, low edu. Level, literacy, decrease access to med. care, fdc, rehab)? @ -No Was there de-escalation of care discussed even if they declined (Discuss DNR or withdrawal of care, Hospice)? DNR status @ -No What co-morbidities impacted this encounter? (DM, HTN, Smoking, COPD, CAD, Cancer, CVA, ARF, Chemo, Hep., AIDS, mental health diagnosis, sleep apnea, morbid obesity)? @ -Recurrent pleural effusions of unknown etiology Was patient admitted / discharged? Hospital course, mention meds given and route, prescriptions, significant lab abnormalities, going to OR and other pertinent info. @ -Based on the patient's presentation and physical exam, patient presents complaining of worsening shortness of breath and right-sided chest discomfort. Has no pleural effusion. We will obtain basic labs, EKG, chest x-ray. He'll be given morphine for pain control. He was in agreement with this plan. Vital signs within acceptable limits. Since labs are remarkable for a microcytic anemia, thrombocytosis. Remainder the labs are within acceptable limits. EKG is no signs of acute ischemia. Chest x-ray shows a very large right-sided pleural effusion with compressive atelectasis. I discussed results with the patient. He states he is having worsening dyspnea and pain and would like it to be drained if possible. Therefore we will admit to have pulmonology evaluated the patient. He was in agreement this plan. I spoke with the admitting team, KEVAN Lemus of [facility] who accepted the patient. Pulmonology consulted. Undiagnosed new problem with uncertain prognosis? @ -No Drug Therapy requiring intensive monitoring for toxicity (Heparin, Nitro, Insulin, Cardizem)? @ -No Were any procedures done? @ -No Diagnosis/symptom? @ -Large right pleural effusion with compressive atelectasis Acute, or Chronic, or Acute on Chronic? @ -Acute on chronic Uncomplicated (without systemic symptoms) or Complicated (systemic symptoms)? @ -Complicated Side effects of treatment? @ -No Exacerbation, Progression, or Severe Exacerbation? @ -No Poses a threat to life or bodily function? How? (Chest pain, [place], CA, pneumonia, PE, COPD, DKA, ARF, appy, cholecystitis, CVA, Diverticulitis, Homicidal, Suicidal, threat to staff... and all critical care pts) @ -Potentially, yes - Lab Data Result diagrams: 01/29/23 05:52 01/29/23 05:52 Lab Results 01/29/23 01/29/23 01/29/23 Range/Units 05:52 05:52 05:52 WBC 7.8 (3.8-10.6) k/uL RBC 5.82 (4.30-5.90) m/uL Hgb 12.5 L (13.0-17.5) gm/dL Hct 42.8 (39.0-53.0) % MCV 73.5 L (80.0-100.0) fL MCH 21.4 L (25.0-35.0) pg MCHC 29.2 L (31.0-37.0) g/dL RDW 15.9 H (11.5-15.5) % Plt Count 653 H (150-450) k/uL MPV 6.6 Neutrophils % 59 % Lymphocytes % 22 % Monocytes % 5 % Eosinophils % 11 % Basophils % 0 % Neutrophils # 4.6 (1.3-7.7) k/uL Lymphocytes # 1.8 (1.0-4.8) k/uL Monocytes # 0.4 (0-1.0) k/uL Eosinophils # 0.8 H (0-0.7) k/uL Basophils # 0.0 (0-0.2) k/uL Hypochromasia Marked Microcytosis Slight PT 9.7 (9.0-12.0) sec INR 0.9 (<1.2) APTT 23.6 (22.0-30.0) sec Sodium 136 L (137-145) mmol/L Potassium 4.0 (3.5-5.1) mmol/L Chloride 103 (98-107) mmol/L Carbon Dioxide 23 (22-30) mmol/L Anion Gap 10 mmol/L BUN 13 (9-20) mg/dL Creatinine 0.84 (0.66-1.25) mg/dL Est GFR (CKD-EPI)AfAm >90 (>60 ml/min/1.73 sqM) Est GFR (CKD-EPI)NonAf >90 (>60 ml/min/1.73 sqM) Glucose 151 H (74-99) mg/dL Calcium 9.5 (8.4-10.2) mg/dL Magnesium 1.6 (1.6-2.3) mg/dL Total Bilirubin 0.5 (0.2-1.3) mg/dL AST 31 (17-59) U/L ALT 26 (4-49) U/L Alkaline Phosphatase 110 (38-126) U/L NT-Pro-B Natriuret Pep 22 pg/mL Total Protein 7.7 (6.3-8.2) g/dL Albumin 3.9 (3.5-5.0) g/dL - EKG Data -: EKG Interpreted by Me EKG Comments: 12-lead Electrocardiogram Interpretation Note EKG was reviewed and interpreted by myself. 12-lead ECG performed at 0548 is interpreted by me as revealing normal sinus rhythm with a right bundle branch block at a rate of 90 beats per minute. [place] is normal. MA interval is 147 ms, QRS durations 130 ms, QTc is 432 ms.. There were no ST or T wave abnormalities to suggest myocardial ischemia or injury. R wave progression across the prec ordium was satisfactory. By my interpretation this EKG is non-diagnostic for acute ischemia. Disposition Clinical Impression: Dyspnea, Pleural effusion Disposition: ADMITTED IP TO THIS HOSP Condition: Stable Referrals: Amara Mckee MD [Primary Care Provider] - 1-2 days Time of Disposition: 06:32
[2023-01-29] MEDS ORDERED: NALOXONE 0.4 MG/ML 1 ML VIAL IV PRN (06:38)
[2023-01-29] MEDS ORDERED: MORPHINE SULFATE 4 MG/ML SYRINGE IVP STA (06:46)
--- NOTE | 2023-01-29 07:29 | XR ---
EXAMINATION TYPE: XR chest 2V DATE OF EXAM: 01/29/2023 COMPARISON: 01/01/2023 HISTORY: 67 year-old male shortness of breath, difficulty breathing TECHNIQUE: PA and lateral views FINDINGS: Ongoing large right pleural effusion. Aeration has slightly worsened at the midline. Only a small por tion of the right upper lobe remains aerated now. Left lung and pleural space are relatively clear. IMPRESSION: Ongoing large right pleural effusion with underlying atelectasis and/or consolidation, increased from prior exam. Only a small portion of the right upper lobe remains aerated now.
[2023-01-29] MEDS: HYDROcodone/APAP 5-325MG 1 EACH TAB PO PRN ×2 (10:46→18:41)
[2023-01-29] MEDS ORDERED: RX INFO: IV CONTRAST WAS GIVEN 1 EACH MISC MISCELLANE PRN (11:47)
[2023-01-29 11:51] LABS: Glucose,Whole Blood 95 mg/dL (70-110)
--- NOTE | 2023-01-29 13:27 | CT ---
EXAMINATION TYPE: CT chest w con DATE OF EXAM: 01/29/2023 COMPARISON: None HISTORY: Hx of mass CT DLP: 455.70 mGycm Automated exposure control for dose reduction was used. CONTRAST: CT scan of the chest is performed with IV Contrast, patient injected with 100 mL of Isovue 300. FINDINGS: LUNGS: There is large right-sided pleural effusion with aeration of a small portion of the right lung apex. There is collapse of the right lung with interposed areas of decreased attenuation. Right uppe r lobe mass measuring 4.8 x 3.4 cm is difficult to exclude image 17 series 3. There is also an area o f decreased attenuation which could reflect additional mass about the right hilum measuring 3.8 x 3.0 cm. There appears to be obstruction of the right upper lobe and right lower lobe bronchi. The left l elizabeth is clear. MEDIASTINUM: There are no greater than 1 cm hilar or mediastinal lymph nodes. No pericardial effusi on is seen. Thoracic aorta is of normal caliber. The heart is not enlarged. UPPER ABDOMEN: No significant abnormality appreciated. OTHER: 2 subcentimeter right epicardial lymph nodes noted. IMPRESSION: 1. Large right-sided pleural effusion. 2.There is collapse of the right lung with interposed areas of decreased attenuation which may reflec t multiple masses. See above.
[2023-01-29 14:24] VITALS: RESP 16
[2023-01-29] MEDS ORDERED: ARTIFICIAL TEARS-HYPROMELLOSE DROPS 15 ML BTL BOTH EYES PRN (14:38)
[2023-01-29] MEDS: MORPHINE SULFATE 4 MG/ML SYRINGE IVP PRN ×2 (15:31→20:26)
--- NOTE | 2023-01-29 17:11 | P.CNPUL ---
History of Present Illness Consult date: 01/29/23 Reason for consult: pleural effusion History of present illness: I was asked to evaluate this patient because of a large right-sided pleural effu renée. Noted the patient has seen Dr. Mendoza in the office. The patient has had a previous thoracentesis of the right lung with evacuation of more than 1 L of fluids. Subsequent chest x-ray showed incomplete expansion of the right lung. The fluid was an exudate and the fluid cytology was negative for malignancy. Following that, the patient underwent a bronchoscopy and biopsies in the lavage of the right lower lobe was negative for any malignancy. The patient was having ongoing pain in his chest and shoulder and for that reason he was brought back to the emergency department. The patient has some weight loss. No hemoptysis. No pleurisy. No previous history of malignancy. The patient has hypertension, hyperlipidemia, and diabetes mellitus. He smokes marijuana. He does not smoke tobacco otherwise. Review of Systems Those systems with pertinent positive or pertinent negative responses have been documented in the HPI. Review of Systems: CONST: Denies fever , patient has ongoing weight loss. EYES: Denies blurry vision ENT: Denies nasal congestion C/V: Endorses intermittent right-sided chest discomfort RESP: Endorses shortness of breath and he is also experiencing some right chest wall discomfort along the rib cage and some pain also in the shoulder area. GI: Denies abdominal pain : Denies dysuria SKIN: Denies rash. MSK: Denies joint pain. NEURO: Denies headache Eyes: denies as per HPI, denies blurred vision, denies bulging eye, denies decreased vision, denies diplopia, denies discharge, denies dry eye, denies irritation, denies itching, denies pain, denies photophobia, denies loss of peripheral vision, denies loss of vision, denies tunnel vision/blind spots Ears: deny: decreased hearing, ear discharge, earache, tinnitus Ears, nose, mouth and throat: Reports as per HPI Breasts: absent: as per HPI, gynecomastia Past Medical History Past Medical History: Diabetes Mellitus, GERD/Reflux, Hyperlipidemia, Hypertension History of Any Multi-Drug Resistant Organisms: None Reported Past Surgical History: No Surgical Hx Reported Past Anesthesia/Blood Transfusion Reactions: No Reported Reaction Additional Past Anesthesia/Blood Transfusion Reaction / Comment(s): Has never had General Anesthesia. Past Psychological History: No Psychological Hx Reported Smoking Status: Never smoker Past Alcohol Use History: Occasional Past Drug Use History: Marijuana Additional Drug Use History / Comment(s): "Just use Marijuana on the weekends". Aware no use 24 hrs prior to procedure. - Past Family History Mother Family Medical History: Cancer Medications and Allergies Home Medications Medication Instructions Recorded Confirmed Type amLODIPine [Norvasc] 10 mg PO DAILY 07/08/21 01/29/23 History Atorvastatin [Lipitor] 80 mg PO DAILY 07/04/22 01/29/23 History Omeprazole 20 mg PO DAILY 07/04/22 01/29/23 History Carboxymethylcellulose Sodium 1 drop BOTH EYES Q2H PRN 01/29/23 01/29/23 History [Thera Tears] Empagliflozin [Jardiance] 10 mg PO DAILY 01/29/23 01/29/23 History Losartan Potassium [Cozaar] 25 mg PO DAILY 01/29/23 01/29/23 History Meloxicam [Mobic] 15 mg PO DAILY 01/29/23 01/29/23 History Multivitamins, Thera [Multivitamin 1 tab PO DAILY 01/29/23 01/29/23 History (formulary)] [place]-3/Dha/Epa/Fish Oil [Fish Oil 2 cap PO DAILY 01/29/23 01/29/23 History 1,000 mg Softgel] Triamterene/Hydrochlorothiazid 1 tab PO DAILY 01/29/23 01/29/23 History [Triamterene-Hctz 75-50 mg Tab] Allergies Allergy/AdvReac Type Severity Reaction Status Date / Time benazepril AdvReac Angioedema Verified 01/29/23 08:30 simvastatin [From Zocor] AdvReac abnormal Verified 01/29/23 08:30 liver enzymes Physical Exam Vitals: Vital Signs Temp Pulse Resp BP Pulse Ox 01/29/23 08:55 89 19 112/87 98 01/29/23 07:35 83 19 124/91 95 01/29/23 06:24 92 18 117/87 98 01/29/23 05:38 18 01/29/23 05:19 98.2 F 57 L 18 140/96 98 Intake and Output 01/28/23 01/29/23 01/29/23 22:59 06:59 14:59 Other: Weight 87.09 kg 87.09 kg General: Appears in mild distress. The patient is currently on room air oxygen with a pulse ox of 98% HEAD: Normal with no signs of head trauma. EYES: PERRLA, EOMI, conjunctiva normal, no discharge. ENT: Hearing grossly intact, normal oropharynx. RESPIRATORY: Reduced breath sounds over most the right lung field. Subtle breath sounds located at the apex of the right lung. No hypoxia. No increased work of breathing at rest. C/V: Regular rate and rhythm. S1 and S2 auscultated, no edema, peripheral pulses 2+ and intact throughout ABD: Abd is soft, nontender, nondistended EXT: Normal range of motion, no obvious deformity SKIN: No rashes or lesions observed on exposed skin. NEURO: Alert and oriented 4. Results - Laboratory Findings CBC and BMP: 01/29/23 05:52 01/29/23 05:52 ABG WBC 7.8 k/uL (3.8-10.6) 01/29/23 05:52 RBC 5.82 m/uL (4.30-5.90) 01/29/23 05:52 Hgb 12.5 gm/dL (13.0-17.5) L 01/29/23 05:52 Hct 42.8 % (39.0-53.0) 01/29/23 05:52 MCV 73.5 fL (80.0-100.0) L 01/29/23 05:52 MCH 21.4 pg (25.0-35.0) L 01/29/23 05:52 MCHC 29.2 g/dL (31.0-37.0) L 01/29/23 05:52 RDW 15.9 % (11.5-15.5) H 01/29/23 05:52 Plt Count 653 k/uL (150-450) H 01/29/23 05:52 MPV 6.6 01/29/23 05:52 Neutrophils % 59 % 01/29/23 05:52 Lymphocytes % 22 % 01/29/23 05:52 Monocytes % 5 % 01/29/23 05:52 Eosinophils % 11 % 01/29/23 05:52 Basophils % 0 % 01/29/23 05:52 Neutrophils # 4.6 k/uL (1.3-7.7) 01/29/23 05:52 Lymphocytes # 1.8 k/uL (1.0-4.8) 01/29/23 05:52 Monocytes # 0.4 k/uL (0-1.0) 01/29/23 05:52 Eosinophils # 0.8 k/uL (0-0.7) H 01/29/23 05:52 Basophils # 0.0 k/uL (0-0.2) 01/29/23 05:52 Hypochromasia Marked 01/29/23 05:52 Microcytosis Slight 01/29/23 05:52 PT 9.7 sec (9.0-12.0) 01/29/23 05:52 INR 0.9 (<1.2) 01/29/23 05:52 APTT 23.6 sec (22.0-30.0) 01/29/23 05:52 Sodium 136 mmol/L (137-145) L 01/29/23 05:52 Potassium 4.0 mmol/L (3.5-5.1) 01/29/23 05:52 Chloride 103 mmol/L (98-107) 01/29/23 05:52 Carbon Dioxide 23 mmol/L (22-30) 01/29/23 05:52 Anion Gap 10 mmol/L 01/29/23 05:52 BUN 13 mg/dL (9-20) 01/29/23 05:52 Creatinine 0.84 mg/dL (0.66-1.25) 01/29/23 05:52 Est GFR (CKD-EPI)AfAm >90 (>60 ml/min/1.73 sqM) 01/29/23 05:52 Est GFR (CKD-EPI)NonAf >90 (>60 ml/min/1.73 sqM) 01/29/23 05:52 Glucose 151 mg/dL (74-99) H 01/29/23 05:52 Calcium 9.5 mg/dL (8.4-10.2) 01/29/23 05:52 Magnesium 1.6 mg/dL (1.6-2.3) 01/29/23 05:52 Total Bilirubin 0.5 mg/dL (0.2-1.3) 01/29/23 05:52 AST 31 U/L (17-59) 01/29/23 05:52 ALT 26 U/L (4-49) 01/29/23 05:52 Alkaline Phosphatase 110 U/L (38-126) 01/29/23 05:52 NT-Pro-B Natriuret Pep 22 pg/mL 01/29/23 05:52 Total Protein 7.7 g/dL (6.3-8.2) 01/29/23 05:52 Albumin 3.9 g/dL (3.5-5.0) 01/29/23 05:52 PT/INR, D-dimer PT 9.7 sec (9.0-12.0) 01/29/23 05:52 INR 0.9 (<1.2) 01/29/23 05:52 Abnormal lab findings: Abnormal Labs 01/29/23 01/29/23 05:52 05:52 Hgb 12.5 L MCV 73.5 L MCH 21.4 L MCHC 29.2 L RDW 15.9 H Plt Count 653 H Eosinophils # 0.8 H Sodium 136 L Glucose 151 H - Diagnostic Findings Chest x-ray: image reviewed Assessment and Plan Plan: Large right-sided pleural effusion/exudate on previous thoracentesis with a negative cytology. There is volume loss and obvious concern of a lung mass underlying this patient's pleural effusion. For that reason, a CAT scan of the chest will be needed. Noted an earlier bronchoscopy and biopsy of the right lower lobe yielded no evidence of any malignancy in the pleural fluid cytology was also negative. Shortness of breath secondary to above Right chest discomfort secondary to above Diabetes mellitus type 2 Hypertension Hyperlipidemia Plan The patient will need an immediate CAT scan of the chest with contrast, as the patient may have an underlying malignancy. Decision to repeat a bronchoscopy and/or repeat thoracentesis will be made based on the results of the CAT scan of the chest Currently on room and oxygen Resume all medications We'll follow
[2023-01-29 17:27] LABS: Glucose,Whole Blood 103 mg/dL (70-110)
[2023-01-29 20:09] LABS: Glucose,Whole Blood 139 mg/dL (70-110)
--- NOTE | 2023-01-29 20:21 | HP ---
HISTORY AND PHYSICAL CHIEF COMPLAINT: Shortness of breath. HISTORY OF PRESENT ILLNESS: This 67-year-old gentleman with a past medical history of multiple medical problems, had a bronchoscopy and as well as pleural tap recently by Dr. Mendoza, fluid was bloody. The pathology apparently showed no malignant cells, but currently the patient comes in with increased shortness of breath, the patient came to [facility] and admitted for further evaluation and treatment. There is no history of any fever, rigors, or chills. The patient has significant right pleural effusion. PAST MEDICAL HISTORY: Reviewed, include recent bronchoscopy and pleural effusion, diabetes mellitus, rest of the history and rest of the chart is also reviewed. HOME MEDICATIONS: Reviewed include multivitamins, doses and rest of medications noted. ALLERGIES: Benazepril and Zocor. FAMILY HISTORY: History of cancer. SOCIAL HISTORY: Occasional alcohol, THC. No history of smoking. REVIEW OF SYSTEMS: A 14-point review is negative except as mentioned. PHYSICAL EXAMINATION: VITAL SIGNS: Pulse is 83, blood pressure 120/90, and respirations 18. HEENT: Conjunctivae normal. NECK: No jugular venous distention. CARDIOVASCULAR: S1, S2 muffled. RESPIRATION: the bases. ABDOMEN: Soft, nontender. LEGS: No edema. No swelling. SKIN: No ulcer, rash, bleeding. JOINTS: No active deforming arthropathy. LABORATORY DATA: Reviewed. ASSESSMENT: 1. Recurrent right pleural effusion, hemorrhage, rule out malignancy or asbestosis. 2. Diabetes mellitus, type 2. 3. GERD. 4. Hypertension. 5. Hyperlipidemia. RECOMMENDATIONS: This 67-year-old gentleman with past medical history of multiple medical problems, admitted with recurrent pleural effusion. I would recommend pulmonary consultation. Repeat pleural effusion, repeat studies, and I would also recommend a CAT scan of the chest, abdomen, pelvis and thoracocenteses for a complete evaluation for evaluation. Other than that, repeat labs. Prognosis guarded because of multiple complex medical conditions. Further recommendations to follow. MMODL / IJN: [id number] / MTDD
[2023-01-29] MEDS: PANTOPRAZOLE 40 MG/10 ML VIAL IVP SCH (20:27)
[2023-01-30] MEDS: MORPHINE SULFATE 4 MG/ML SYRINGE IVP PRN ×2 (01:48→09:50)
[2023-01-30 06:10] LABS: Glucose,Whole Blood 100 mg/dL (70-110)
[2023-01-30 07:43] VITALS: BP 132/89; PULSE 86; TEMP 98.1
--- NOTE | 2023-01-30 08:39 | P.PN ---
Subjective Progress Note Date: 01/30/23 I was asked to evaluate this patient because of a large right-sided pleural eff usion. Noted the patient has seen Dr. Mendoza in the office. The patient has had a previous thoracentesis of the right lung with evacuation of more than 1 L of fluids. Subsequent chest x-ray showed incomplete expansion of the right lung. The fluid was an exudate and the fluid cytology was negative for malignancy. Following that, the patient underwent a bronchoscopy and biopsies in the lavage of the right lower lobe was negative for any malignancy. The patient was having ongoing pain in his chest and shoulder and for that reason he was brought back to the emergency department. The patient has some weight loss. No hemoptysis. No pleurisy. No previous history of malignancy. The patient has hypertension, hyperlipidemia, and diabetes mellitus. He smokes marijuana. He does not smoke tobacco otherwise. On today's evaluation, the patient is still having some right-sided chest discomfort. I saw him in fixture relamper. I also reviewed the CAT scan of the chest that was done yesterday. There is a large right-sided pleural effusion. However, there is collapse of the right lung and there is decreased attenuation. Right upper lobe was occupied with a mass measuring 4.8 x 3.4 cm in size. There is also decreased attenuation an additional masses along the right hilum measuring 3.8 x 3 cm in size. It is also obstruction of the right upper lobe and the right lower lobe airways. The left lung is essentially clear. The patient remains on room air oxygen. He has no specific complaints. Objective - Vital Signs Vital signs: Vital Signs Temp 98.1 F 01/30/23 07:00 Pulse 86 01/30/23 07:00 Resp 16 01/30/23 07:00 BP 132/89 01/30/23 07:00 Pulse Ox 96 01/30/23 07:00 FiO2 Intake & Output 01/29/23 01/30/23 01/30/23 18:59 06:59 18:59 Weight 87.09 kg Other: # Voids 1 1 - Exam General: Appears in mild distress. The patient is currently on room air oxygen with a pulse ox of 98% HEAD: Normal with no signs of head trauma. EYES: PERRLA, EOMI, conjunctiva normal, no discharge. ENT: Hearing grossly intact, normal oropharynx. RESPIRATORY: Reduced breath sounds over most the right lung field. Subtle breath sounds located at the apex of the right lung. No hypoxia. No increased work of breathing at rest. C/V: Regular rate and rhythm. S1 and S2 auscultated, no edema, peripheral pulses 2+ and intact throughout ABD: Abd is soft, nontender, nondistended EXT: Normal range of motion, no obvious deformity SKIN: No rashes or lesions observed on exposed skin. NEURO: Alert and oriented 4. - Labs CBC & Chem 7: 01/29/23 05:52 01/29/23 05:52 Labs: Abnormal Lab Results - Last 24 Hours (Table) 01/29/23 Range/Units 20:08 POC Glucose (mg/dL) 139 H (70-110) mg/dL Assessment and Plan Plan: Large right-sided pleural effusion/exudate on previous thoracentesis with a negative cytology. There is volume loss and obvious concern of a lung mass underlying this patient's pleural effusion. For that reason, a CAT scan of the chest will be needed. Noted an earlier bronchoscopy and biopsy of the right lower lobe yielded no evidence of any malignancy in the pleural fluid cytology was also negative. Shortness of breath secondary to above Right chest discomfort secondary to above Diabetes mellitus type 2 Hypertension Hyperlipidemia Plan I reviewed the CAT scan of the chest. The patient has a right hilar mass was obstructing the right upper lobe bronchus. There is also obstruction of the right lower lobe bronchus and significant atelectasis of the right lung. There is a large right-sided pleural effusion. Ideally, the patient needs bronchoscopy and biopsies of the right upper lobe hilar mass. We may also attempt another thoracentesis although I'm not optimistic that the patient is going to get full recovery as the right upper lobe is essentially chest and there is significant atelectasis of the right lower lobe. As such, he may and up requiring both procedures. I discussed with him again the findings. I also expressed to him that there is a high likelihood that there may be an underlying malignancy within his right hilum. He opted for having a palliative thoracentes is for now and he wants to go home to be followed up on outpatient basis by his embryology teacher, Dr. Mendoza . I think is reasonable. For now, going to do a right-sided thoracentesis and the analyzed the pleural fluid and as long as he stable, he can follow-up on outpatient basis with another bronchoscopy. Suggest endobronchial ultrasound and right upper lobe biopsies with the tumor is. There is significant obstruction of the right upper lobe bronchus.
[2023-01-30] MEDS ORDERED: MULTIVITAMINS, THERA 1 EACH TAB PO SCH (09:00)
[2023-01-30] MEDS ORDERED: DAPAGLIFLOZIN PROPANEDIOL 5 MG TABLET PO SCH (09:00)
[2023-01-30] MEDS ORDERED: amLODIPine 10 MG TAB PO SCH (09:00)
[2023-01-30] MEDS ORDERED: NON FORMULARY DRUG (Omega-3/Dha/Epa/Fish Oil [Fish Oil 1,000 Mg Softgel] 1 EACH Capsule) PO SCH (09:00)
[2023-01-30] MEDS ORDERED: ATORVASTATIN 80 MG TAB PO SCH (09:00)
[2023-01-30] MEDS ORDERED: LOSARTAN 25 MG TAB PO SCH (09:00)
[2023-01-30] MEDS ORDERED: TRIAMTERENE-HCTZ 75-50MG 1 EACH TAB PO SCH (09:00)
[2023-01-30] MEDS ORDERED: NON FORMULARY DRUG (Omeprazole [Omeprazole] 20 MG Capsule.Dr) PO SCH (09:00)
--- NOTE | 2023-01-30 09:16 | P.PCN ---
Date of Procedure: 01/30/23 Preoperative Diagnosis: right , pleural effusion Postoperative Diagnosis: same Procedure(s) Performed: thoracentesis, right sided Anesthesia: local Surgeon: Ciro Faye Pathology: other Condition: stable Disposition: floor Operative Findings: A time out was performed and the chest x-ray was reviewed, the appropriate side was confirmed and marked. My hands were washed immediately prior to the procedure. I wore a surgical cap, mask with protective eyewear, sterile gown and sterile gloves throughout the procedure. The patient was prepped and draped in a sterile manner using chlorhexidine scrub after the appropriate level was percussed and confirmed by ultrasound. 1% lidocaine was used to anesthesize the skin, subcutaneous tissue, superior aspect of the rib periosteum and parietal pleura. A finder needle was then introduced over the superior aspect of the rib to locate the pleural fluid; 2colored fluid was aspirated at a depth of approximately 2 cm. A 10-blade scalpel was used to emilie the skin at the insertion site. The Wrol-i-Uzijayjm needle was then introduced through the skin incision into the pleural space using negative aspiration pressure and the red colometric indicator to confirm appropriate positioning of the needle. The thoracentesis catheter was then threaded without difficulty. 1000ml of turbid chocolatey brown colored fluid was removed without difficulty. The catheter was then removed. No immediate complications were noted during the procedure. A post-procedure chest x-ray is pending at the time of this note. The fluid will be sent for studies. Estimated blood loss is 0cc
[2023-01-30] MEDS: PANTOPRAZOLE 40 MG/10 ML VIAL IVP SCH (09:52)
--- NOTE | 2023-01-30 10:13 | XR ---
EXAMINATION TYPE: XR chest 1V DATE OF EXAM: 01/30/2023 COMPARISON: 01/29/2023 HISTORY: 67-year-old male postthoracentesis TECHNIQUE: Single frontal view of the chest is obtained. FINDINGS: There remains a large effusion on the right with only a small portion of aerated lung in t he right upper lobe. Left lung and pleural space appear clear. No appreciable pneumothorax. IMPRESSION: There remains a large right pleural effusion, fairly similar to slightly increased from 01/29/2023. On ly a small portion of the right upper lobe is aerated. There is otherwise white out of the hemithorax .
[2023-01-30 11:08] LABS: HCT 39.7 % (39.6-50.0); MCH 22.1 pg (27.0-32.0); MCHC 30.2 d/dL (32.0-37.0); Mean Platelet Volume 8.7 FL (9.5-12.2); NRBC Per 100 WBC 0 X 10*3/uL (0.00-0.01); Platelet Count 657 X 10*3/uL (140-440); RBC 5.44 X 10*6/uL (4.40-5.60); RDW 16.4 % (11.5-14.5); WBC 7.98 X 10*3/uL (4.50-10.00)
[2023-01-30 11:30] LABS: BUN/Creat Ratio 17.57 Ratio (12.00-20.00); Blood Urea Nitrogen 12.3 mg/dL (9.0-27.0); Calcium 9.7 mg/dL (8.7-10.3); Carbon Dioxide 22.1 mmol/L (21.6-31.8); Chloride 100 mmol/L (96-109); Glucose 96 mg/dL (70-110); Potassium 4.6 mmol/L (3.5-5.5); Sodium 134 mmol/L (135-145)
[2023-01-30 11:39] LABS: Basophils # (A) 0.08 X 10*3/uL (0.00-0.10); Eosinophils # (A) 0.59 X 10*3/uL (0.04-0.35); Eosinophils % (A) 7.4 %; Lymphocytes # (A) 1.76 X 10*3/uL (0.90-5.00); Lymphocytes % (A) 22.1 %; Monocytes # (A) 0.73 X 10*3/uL (0.20-1.00); Monocytes % (A) 9.1 %; Neutrophils # (A) 4.79 X 10*3/uL (1.80-7.70); RBC Morphology Normal (Normal)
[2023-01-30 17:22] LABS: Appearance,BF Turbid (Clear)
[2023-01-30 20:48] LABS: Cholesterol,BF Source Pleural Fluid; Cholesterol,Body Fluid 94 mg/dL; T. Protein, Body Fluid Source Pleural Fluid; Total Protein, Body Fluid >3600 mg/dL
[2023-01-30 20:49] LABS: LDH, Body Fluid Source Pleural Fluid
[2023-01-30 20:50] LABS: Glucose, BF Source Pleural fluid; Glucose, Body Fluid <2 mg/dL
--- NOTE | 2023-01-31 10:33 | P.DS ---
Providers Date of admission: 01/29/23 10:38 Expected date of discharge: 01/30/23 Attending physician: Linsey Sanders Consults: 01/29/23 06:38 Consult Physician Routine Consulting Provider: Ciro Faye Consult Reason/Comments: pleural effusion, dyspnea Do you want consulting provider notified?: Yes Primary care physician: Rafi Macias [facility] Course: Final diagnosis Shortness of breath secondary to recurrent right pleural effusion, hemorrhage, rule out malignancy or asbestosis Previous thoracentesis with negative pathology Dense masses noted on CT of the right lobe, for outpatient treatment and follow- up Hypertension Hyperlipidemia Diabetes mellitus, type II GERD DVT prophylaxis GI prophylaxis Full code Discharge disposition Patient is being discharged in a stable condition with guarded prognosis to home.. Patient will follow-up with Dr. Mckee in the outpatient setting upon discharge. Patient is to follow-up with pulmonary outpatient in one week as scheduled. Total time taken is greater than 35 minutes. Hospital course This is a 67-year-old male who was recently admitted with increasing shortness of breath and some right sided chest wall discomfort. Patient had CT with pleural effusion along with possible dense masses and volume collapse on the right. Patient underwent thoracentesis with pulmonary with approximately 1 L removed. Previous or centesis a few weeks ago had negative pathology. Patient follow-up with Dr. Qasim Mendoza pulmonary in the outpatient setting this week. Patient has been cleared by consultations for discharge with outpatient follow- up in 1 week. Please refer to pulmonary no for further HPI. Currently no reports of chest pain, shortness of breath, or palpitations. Patient is afebrile. No reports of nausea or vomiting and patient is tolerating diet. Patient will be discharged home today. Physical exam: Gen: This is a 67-year-old male who is awake, alert and oriented 3, well- developed, well-nourished HEENT: Head is atraumatic, normocephalic. Pupils equal, round. Sclerae is anicteric. NECK: Supple. No JVD. No lymphadenopathy. No thyromegaly. LUNGS: Diminished breath sounds bilaterally more so on the right with some scattered rhonchi. No intercostal retractions. HEART: Regular rate and rhythm. No murmur. ABDOMEN: Soft. Bowel sounds are present. No masses. No tenderness. EXTREMITIES: No pedal edema. No calf tenderness. NEUROLOGICAL: Patient is awake, alert and oriented x3. Cranial nerves 2 through 12 are grossly intact. Please refer to medication reconciliation sheet for a list of medications. The impression and plan of care has been dictated by Mariah Kerns, Nurse Practitioner as directed. Dr. Tommy MD I have performed a history and examination and MDM of this patient, discussed the same with the dictator, and agree with the dictator's assessment and plan as written ,documented as a scribe. Based on total visit time, I have performed more than 50% of the visit. Patient Condition at Discharge: Stable Plan - Discharge Summary New Discharge Prescriptions: Continue amLODIPine [Norvasc] 10 mg PO DAILY Omeprazole 20 mg PO DAILY Atorvastatin [Lipitor] 80 mg PO DAILY Meloxicam [Mobic] 15 mg PO DAILY Carboxymethylcellulose Sodium [Thera Tears] 1 drop BOTH EYES Q2H PRN PRN Reason: Dry Eye(S) Empagliflozin [Jardiance] 10 mg PO DAILY Triamterene/Hydrochlorothiazid [Triamterene-Hctz 75-50 mg Tab] 1 tab PO DAILY Losartan Potassium [Cozaar] 25 mg PO DAILY Multivitamins, Thera [Multivitamin (formulary)] 1 tab PO DAILY [place]-3/Dha/Epa/Fish Oil [Fish Oil 1,000 mg Softgel] 2 cap PO DAILY Discharge Medication List amLODIPine [Norvasc] 10 mg PO DAILY 07/08/21 [History] Atorvastatin [Lipitor] 80 mg PO DAILY 07/04/22 [History] Omeprazole 20 mg PO DAILY 07/04/22 [History] Carboxymethylcellulose Sodium [Thera Tears] 1 drop BOTH EYES Q2H PRN 01/29/23 [History] Empagliflozin [Jardiance] 10 mg PO DAILY 01/29/23 [History] Losartan Potassium [Cozaar] 25 mg PO DAILY 01/29/23 [History] Meloxicam [Mobic] 15 mg PO DAILY 01/29/23 [History] Multivitamins, Thera [Multivitamin (formulary)] 1 tab PO DAILY 01/29/23 [History] [place]-3/Dha/Epa/Fish Oil [Fish Oil 1,000 mg Softgel] 2 cap PO DAILY 01/29/23 [History] Triamterene/Hydrochlorothiazid [Triamterene-Hctz 75-50 mg Tab] 1 tab PO DAILY 01/29/23 [History] Follow up Appointment(s)/Referral(s): Amara Mckee MD [Primary Care Provider] - 1-2 days Qasim Mendoza DO [Doctor of Osteopathic Medicine] - 02/05/23 9:45 am Patient Instructions/Handouts: Pleural Effusion (DC) Activity/Diet/Wound Care/Special Instructions: Activity Limited until follow-up Follow-up with primary care provider on discharge Follow-up with pulmonary outpatient Continue medications as prescribed Discharge Disposition: HOME SELF-CARE
== END 2023-01-30 12:27 | disposition home or self-care (01) | DRG 187 ==
LOC: EC 05:16 → 6NMEDSUR 06:38 → OBSVTOIN 10:38
PROVIDERS: ADMIT Hospitalist; ATTEND Hospitalist
PROC: 0W993ZZ Drainage of Right Pleural Cavity, Percutaneous Approach (ICD-10-PCS; principal; 2023-01-30)
DX: J90 Pleural effusion, not elsewhere classified (principal); J98.11 Atelectasis; R58 Hemorrhage, not elsewhere classified; K21.9 Gastro-esophageal reflux disease without esophagitis; I10 Essential (primary) hypertension; D50.9 Iron deficiency anemia, unspecified; D75.839 Thrombocytosis, unspecified; E78.5 Hyperlipidemia, unspecified; Z79.1 Long term (current) use of non-steroidal anti-inflammatories (NSAID); Z79.84 Long term (current) use of oral hypoglycemic drugs; Z79.899 Other long term (current) drug therapy; Z88.8 Allergy status to other drugs, medicaments and biological substances
CPT/HCPCS: 36415; 71045; 71046; 71260; 80048; 80053; 82465; 82945; 83615; 83735; 83880; 84157; 85025; 85610; 85730; 87070; 87075; 87205; 89050; 93005; 94760; 96374; 99285

== ENCOUNTER 2024-05-18 06:28 | Emergency (ER) | payer OTHER ==
[2024-05-18] MEDS: ONDANSETRON 4 MG/2 ML VIAL IVP STA (07:20)
[2024-05-18] MEDS: SODIUM CHLORIDE 0.9% 500 ML 500 ML IV STA (07:20)
[2024-05-18] MEDS: PANTOPRAZOLE 40 MG/10 ML VIAL IVP STA (07:22)
--- NOTE | 2024-05-18 07:26 | ED ---
General Adult HPI - General Chief complaint: GI Bleed Stated complaint: NVD Time Seen by Provider: 05/18/24 07:02 Source: patient, RN notes reviewed, old records reviewed Mode of arrival: ambulatory Limitations: no limitations - History of Present Illness Initial comments: 68-year-old male presenting for evaluation of nausea vomiting diarrhea. Patient states that over the past 24 hours he has had 3 or 4 episodes of both vomiting and diarrhea. He reports this was red in color and was concerned this could be blood. Patient denies current anticoagulation. He reports generalized abdominal pain. He is currently on antibiotics through left upper extremity PICC line for thoracic infection. Follows at [facility] and was recently discharged. - Related Data Home Medications Medication Instructions Recorded Confirmed amLODIPine [Norvasc] 10 mg PO DAILY 07/08/21 01/29/23 Atorvastatin [Lipitor] 80 mg PO DAILY 07/04/22 01/29/23 Omeprazole 20 mg PO DAILY 07/04/22 01/29/23 Carboxymethylcellulose Sodium 1 drop BOTH EYES Q2H PRN 01/29/23 01/29/23 [Thera Tears] Empagliflozin [Jardiance] 10 mg PO DAILY 01/29/23 01/29/23 Losartan Potassium [Cozaar] 25 mg PO DAILY 01/29/23 01/29/23 Meloxicam [Mobic] 15 mg PO DAILY 01/29/23 01/29/23 Multivitamins, Thera [Multivitamin 1 tab PO DAILY 01/29/23 01/29/23 (formulary)] [place]-3/Dha/Epa/Fish Oil [Fish Oil 2 cap PO DAILY 01/29/23 01/29/23 1,000 mg Softgel] Triamterene/Hydrochlorothiazid 1 tab PO DAILY 01/29/23 01/29/23 [Triamterene-Hctz 75-50 mg Tab] Allergies Allergy/AdvReac Type Severity Reaction Status Date / Time benazepril AdvReac Angioedema Verified 05/18/24 06:30 simvastatin [From Zocor] AdvReac abnormal Verified 05/18/24 06:30 liver enzymes Review of Systems ROS Statement: Those systems with pertinent positive or pertinent negative responses have been documented in the HPI. ROS Other: All systems not noted in ROS Statement are negative. Past Medical History Past Medical History: Cancer, Diabetes Mellitus, GERD/Reflux, Hyperlipidemia, Hypertension Additional Past Medical History / Comment(s): lung cancer History of Any Multi-Drug Resistant Organisms: None Reported Past Surgical History: No Surgical Hx Reported Additional Past Surgical History / Comment(s): recent chest tube Past Anesthesia/Blood Transfusion Reactions: No Reported Reaction Additional Past Anesthesia/Blood Transfusion Reaction / Comment(s): Has never had General Anesthesia. Past Psychological History: No Psychological Hx Reported Smoking Status: Never smoker Past Alcohol Use History: Occasional Past Drug Use History: Marijuana - Past Family History Mother Family Medical History: Cancer General Exam Limitations: no limitations General appearance: alert, in no apparent distress Head exam: Present: atraumatic, normocephalic Eye exam: Present: normal appearance, PERRL Neck exam: Present: normal inspection. Absent: tenderness, meningismus Respiratory exam: Present: decreased breath sounds. Absent: respiratory distress Cardiovascular Exam: Present: normal rhythm, tachycardia GI/Abdominal exam: Present: soft, tenderness, guarding Neurological exam: Present: alert, oriented X3, CN II-XII intact. Absent: motor sensory deficit Psychiatric exam: Present: normal affect, normal mood Skin exam: Present: warm, dry, intact Course Vital Signs 05/18/24 05/18/24 05/18/24 06:30 06:52 09:00 Temperature 97.5 F L Pulse Rate 131 H 112 H 101 H Respiratory 15 20 20 Rate Blood Pressure 85/61 102/74 107/71 O2 Sat by Pulse 100 99 96 Oximetry Medical Decision Making - Medical Decision Making Was pt. sent in by a medical professional or institution (, PA, VETERINARIAN, urgent care, hospital, or skilled nursing...) When possible be specific @ -No Did you speak to anyone other than the patient for history (EMS, parent, family, police, friend...)? What history was obtained from this source @ -No Did you review nursing and triage notes (agree or disagree)? Why? @ -I reviewed and agree with nursing and triage notes Were old charts reviewed (outside hosp., previous admission, EMS record, old EKG, old radiological studies, urgent care reports/EKG's, skilled nursing records)? Report findings @ -No old charts were reviewed Differential abdominal pain med EKG interpreted by me (3pts min.). @ -Sinus tachycardia rate of 125, ND interval 138, QRS duration 132, QTc 428 right bundle branch block X-rays interpreted by me (1pt min.). @ -Two-view chest x-ray shows large pleural effusion on the right with pneumothorax. CT interpreted by me (1pt min.). @ -[CT of the abdomen pelvis showing the lower portions of a hemopneumothorax on the right. No specific intra-abdominal process to explain the patient's pain. U/S interpreted by me (1pt. min.). @ -None done What testing was considered but not performed or refused? (CT, X-rays, U/S, labs)? Why? @ -None What meds were considered but not given or refused? Why? @ -None Did you discuss the management of the patient with other professionals (professionals i.e. , PA, VETERINARIAN, lab, RT, psych nurse, social work specialist, property disposal manager, teacher, infantry officer, case resolution specialist)? Give summary @ Transfer team at [facility], Dr. Hernandez Was smoking cessation discussed for >3mins.? @ -No Was critical care preformed (if so, how long)? @ -yes, 35 min Were there social determinants of health that impacted care today? How? (Homelessness, low income, unemployed, alcoholism, drug addiction, transportation, low edu. Level, literacy, decrease access to med. care, shelter, rehab)? @ -No Was there de-escalation of care discussed even if they declined (Discuss DNR or withdrawal of care, Hospice)? DNR status @ -No What co-morbidities impacted this encounter? (DM, HTN, Smoking, COPD, CAD, Cancer, CVA, ARF, Chemo, Hep., AIDS, mental health diagnosis, sleep apnea, morbid obesity)? @ -None Was patient admitted / discharged? Hospital course, mention meds given and route, prescriptions, significant lab abnormalities, going to OR and other pertinent info. @ 68-year-old male with abdominal pain, nausea vomiting, hematemesis. Patient is a current patient of the [facility] system where he recently received PICC line for continuous IV antibiotics for likely empyema. Patient has a L mildly elevated white blood cell count at 11, hemoglobin is 8 with no recent for comparison. He has a lactic of 2.6. Mild hypokalemia and hypomagnesemia. Patient will require transfer to [facility] for both continuity of care and for gastroenterology consultation for hematemesis. He has no further vomiting during his initial 4 hours in the emergency department. I did discuss case with the transfer center at [facility] and they will accept transfer, accepting physician is Dr. Hernandez, patient currently awaiting transfer. Undiagnosed new problem with uncertain prognosis? @ -No Drug Therapy requiring intensive monitoring for toxicity (Heparin, Nitro, Insulin, Cardizem)? @ -No Were any procedures done? @ -No Diagnosis/symptom? @ -Abdominal pain, hematemesis, right-sided hydropneumothorax Acute, or Chronic, or Acute on Chronic? @ -Acute Uncomplicated (without systemic symptoms) or Complicated (systemic symptoms)? @ -[complicated Side effects of treatment? @ -No Exacerbation, Progression, or Severe Exacerbation? @ -No Poses a threat to life or bodily function? How? (Chest pain, [place], [place], pneumonia, PE, COPD, DKA, ARF, appy, cholecystitis, CVA, Diverticulitis, Homicidal, Suicidal, threat to staff... and all critical care pts) @ -yes, GI bleed, pneumothorax - Lab Data Result diagrams: 05/18/24 07:11 05/18/24 07:11 Lab Results 05/18/24 05/18/24 05/18/24 Range/Units 07:00 07:06 07:06 WBC (3.8-10.6) k/uL RBC (4.30-5.90) m/uL Hgb (13.0-17.5) gm/dL Hct (39.0-53.0) % MCV (80.0-100.0) fL MCH (25.0-35.0) pg MCHC (31.0-37.0) g/dL RDW (11.5-15.5) % Plt Count (150-450) k/uL MPV Neutrophils % % Lymphocytes % % Monocytes % % Eosinophils % % Basophils % % Neutrophils # (1.3-7.7) k/uL Lymphocytes # (1.0-4.8) k/uL Monocytes # (0-1.0) k/uL Eosinophils # (0-0.7) k/uL Basophils # (0-0.2) k/uL Hypochromasia Anisocytosis Microcytosis PT (10.0-12.5) sec INR (<1.2) APTT (22.0-30.0) sec Sodium (137-145) mmol/L Potassium (3.5-5.1) mmol/L Chloride (98-107) mmol/L Carbon Dioxide (22-30) mmol/L Anion Gap mmol/L BUN (9-20) mg/dL Creatinine (0.66-1.25) mg/dL Est GFR (CKD-EPI)AfAm (>60 ml/min/1.73 sqM) Est GFR (CKD-EPI)NonAf (>60 ml/min/1.73 sqM) Glucose (74-99) mg/dL Plasma Lactic Acid Jay (0.7-2.0) mmol/L Calcium (8.4-10.2) mg/dL Magnesium (1.6-2.3) mg/dL Total Bilirubin (0.2-1.3) mg/dL AST (17-59) U/L ALT (4-49) U/L Alkaline Phosphatase (38-126) U/L Total Protein (6.3-8.2) g/dL Albumin (3.5-5.0) g/dL Blood Type B Positive Blood Type Confirm B Positive Blood Type Recheck No Previous Record Bld Type Recheck Status CABO Indicated Antibody Screen NEGATIVE Spec Expiration Date 05/21/2024 - 230505/18/24 05/18/24 05/18/24 Range/Units 07:11 07:11 07:11 WBC 11.1 H (3.8-10.6) k/uL RBC 3.60 L (4.30-5.90) m/uL Hgb 8.0 L (13.0-17.5) gm/dL Hct 27.5 L (39.0-53.0) % MCV 76.4 L (80.0-100.0) fL MCH 22.3 L (25.0-35.0) pg MCHC 29.2 L (31.0-37.0) g/dL RDW 19.6 H (11.5-15.5) % Plt Count 814 H (150-450) k/uL MPV 6.4 Neutrophils % 85 % Lymphocytes % 9 % Monocytes % 5 % Eosinophils % 1 % Basophils % 0 % Neutrophils # 9.4 H (1.3-7.7) k/uL Lymphocytes # 1.0 (1.0-4.8) k/uL Monocytes # 0.5 (0-1.0) k/uL Eosinophils # 0.1 (0-0.7) k/uL Basophils # 0.0 (0-0.2) k/uL Hypochromasia Marked Anisocytosis Slight Microcytosis Moderate PT 12.6 H (10.0-12.5) sec INR 1.2 H (<1.2) APTT 23.5 (22.0-30.0) sec Sodium 140 (137-145) mmol/L Potassium 3.3 L (3.5-5.1) mmol/L Chloride 105 (98-107) mmol/L Carbon Dioxide 30 (22-30) mmol/L Anion Gap 5 mmol/L BUN 17 (9-20) mg/dL Creatinine 0.56 L (0.66-1.25) mg/dL Est GFR (CKD-EPI)AfAm >90 (>60 ml/min/1.73 sqM) Est GFR (CKD-EPI)NonAf >90 (>60 ml/min/1.73 sqM) Glucose 119 H (74-99) mg/dL Plasma Lactic Acid Jay (0.7-2.0) mmol/L Calcium 8.1 L (8.4-10.2) mg/dL Magnesium 1.5 L (1.6-2.3) mg/dL Total Bilirubin 0.6 (0.2-1.3) mg/dL AST 24 (17-59) U/L ALT 10 (4-49) U/L Alkaline Phosphatase 70 (38-126) U/L Total Protein 5.7 L (6.3-8.2) g/dL Albumin 2.4 L (3.5-5.0) g/dL Blood Type Blood Type Confirm Blood Type Recheck Bld Type Recheck Status Antibody Screen Spec Expiration Date 05/18/24 Range/Units 07:11 WBC (3.8-10.6) k/uL RBC (4.30-5.90) m/uL Hgb (13.0-17.5) gm/dL Hct (39.0-53.0) % MCV (80.0-100.0) fL MCH (25.0-35.0) pg MCHC (31.0-37.0) g/dL RDW (11.5-15.5) % Plt Count (150-450) k/uL MPV Neutrophils % % Lymphocytes % % Monocytes % % Eosinophils % % Basophils % % Neutrophils # (1.3-7.7) k/uL Lymphocytes # (1.0-4.8) k/uL Monocytes # (0-1.0) k/uL Eosinophils # (0-0.7) k/uL Basophils # (0-0.2) k/uL Hypochromasia Anisocytosis Microcytosis PT (10.0-12.5) sec INR (<1.2) APTT (22.0-30.0) sec Sodium (137-145) mmol/L Potassium (3.5-5.1) mmol/L Chloride (98-107) mmol/L Carbon Dioxide (22-30) mmol/L Anion Gap mmol/L BUN (9-20) mg/dL Creatinine (0.66-1.25) mg/dL Est GFR (CKD-EPI)AfAm (>60 ml/min/1.73 sqM) Est GFR (CKD-EPI)NonAf (>60 ml/min/1.73 sqM) Glucose (74-99) mg/dL Plasma Lactic Acid Jay 2.6 H* (0.7-2.0) mmol/L Calcium (8.4-10.2) mg/dL Magnesium (1.6-2.3) mg/dL Total Bilirubin (0.2-1.3) mg/dL AST (17-59) U/L ALT (4-49) U/L Alkaline Phosphatase (38-126) U/L Total Protein (6.3-8.2) g/dL Albumin (3.5-5.0) g/dL Blood Type Blood Type Confirm Blood Type Recheck Bld Type Recheck Status Antibody Screen Spec Expiration Date Critical Care Time Critical Care Time: Yes Total Critical Care Time: 35 Disposition Clinical Impression: Pleural effusion, Hematemesis, Abdominal pain, Pneumothorax Disposition: OTHER INSTITUTION NOT DEFINED Condition: Stable Is patient prescribed a controlled substance at d/c from ED?: No Referrals: [facility],Clinic [Primary Care Provider] - 1-2 days Time of Disposition: 10:14 - Out of Hospital Transfer - Req. Specs Out of Hospital Transfer - Requested Specifics: Other Non-Acute (Transfer to [facility])
[2024-05-18] MEDS: HYDROmorphone 0.5 MG/0.5 ML SYRINGE IVP STA (07:36)
[2024-05-18 07:38] LABS: Anisocytosis Slight; Basophils % (A) 0 %; Eosinophils # (A) 0.1 k/uL (0-0.7); Eosinophils % (A) 1 %; HCT 27.5 % (39.0-53.0); Hypochromasia Marked; Lymphocytes % (A) 9 %; MCH 22.3 pg (25.0-35.0); MCHC 29.2 g/dL (31.0-37.0); MCV 76.4 fL (80.0-100.0); Mean Platelet Volume 6.4; Microcytosis Moderate; Monocytes # (A) 0.5 k/uL (0-1.0); Monocytes % (A) 5 %; Neutrophils # (A) 9.4 k/uL (1.3-7.7); Neutrophils % (A) 85 %; Platelet Count 814 k/uL (150-450); RDW 19.6 % (11.5-15.5); WBC 11.1 k/uL (3.8-10.6)
[2024-05-18 07:53] LABS: INR 1.2 (<1.2); Partial Thromboplastin Time 23.5 sec (22.0-30.0); Prothrombin Time 12.6 sec (10.0-12.5)
[2024-05-18 08:02] LABS: ALT 10 U/L (4-49); AST 24 U/L (17-59); African American GFR (CKD) >90 (>60 ml/min/1.73 sqM); Albumin 2.4 g/dL (3.5-5.0); Alkaline Phosphatase 70 U/L (38-126); Anion Gap 5 mmol/L; Blood Urea Nitrogen 17 mg/dL (9-20); Calcium 8.1 mg/dL (8.4-10.2); Carbon Dioxide 30 mmol/L (22-30); Chloride 105 mmol/L (98-107); Glucose 119 mg/dL (74-99); Magnesium 1.5 mg/dL (1.6-2.3); Non-African American GFR(CKD) >90 (>60 ml/min/1.73 sqM); Potassium 3.3 mmol/L (3.5-5.1); Sodium 140 mmol/L (137-145); Total Bilirubin 0.6 mg/dL (0.2-1.3); Total Protein 5.7 g/dL (6.3-8.2)
--- NOTE | 2024-05-18 09:27 | XR ---
EXAMINATION TYPE: XR chest 2V DATE OF EXAM: 05/18/2024 COMPARISON: 04/14/2023 HISTORY: 68-year-old male shortness of breath, pleural effusion, pneumothorax TECHNIQUE: PA and lateral views FINDINGS: Left PICC tip at the lower SVC. Right heart margin entirely obscured by adjacent pleural parenchymal opacity. There is a large air-fluid level in the right hemithorax at the mid chest level. Extensive p leural parenchymal opacity throughout the right upper to midlung as well. Suspect a trace left pleura l effusion. Background hyperinflation probably COPD. IMPRESSION: 1. Findings suggest underlying right-sided hydropneumothorax. Pleural effusion layers at the mid ches t level. Extensive pleural-parenchymal opacities throughout the remainder of the right upper to midlu ng. 2. Trace left pleural effusion. Background COPD. [facility], , 05/18/2024 9:25 AM
[2024-05-18] MEDS: SODIUM CHLORIDE 0.9% 500 ML 500 ML IV ONE (09:32)
--- NOTE | 2024-05-18 09:33 | CT ---
EXAMINATION TYPE: CT abdomen pelvis w con DATE OF EXAM: 05/18/2024 8:50 AM COMPARISON: 05/08/2021 and 01/29/2023 CLINICAL INDICATION: Male, 68 years old with history of abd pain generalized/RUQ; RUQ pain TECHNIQUE: Axial CT abdomen pelvis w con;Sagittal and coronal reformats were created on a separate w orkstation. Contrast used:100 ml mL of Isovue 370 with IV Contrast, (none if empty) Oral contrast used: without Oral Contrast (none if empty) CT DLP: 768.4 mGycm, Automated exposure control for dose reduction was used. FINDINGS: LOWER CHEST: Right partially visualized hydropneumothorax with split pleural sign correlate for infec tion. The right lung appears completely collapsed. Small left pleural effusion. Cardiophrenic lymph n ode measures 8 mm mild gynecomastia changes are visualized in the right breast. ABDOMEN LIVER: Unremarkable GALLBLADDER AND BILE DUCTS: Unremarkable. PANCREAS: Unremarkable. SPLEEN: Unremarkable. ADRENAL GLANDS: Unremarkable. KIDNEYS AND URETERS: No evidence of hydronephrosis or renal calculus. The ureters are unremarkable. PELVIS BLADDER: No evidence for wall thickening or mass given limitations of exam. REPRODUCTIVE: Prostate is enlarged in size measuring 5.3. In transverse dimension. ABDOMEN & PELVIS STOMACH AND BOWEL: No evidence of bowel obstruction. Scattered colonic diverticula. PERITONEUM/RETROPERITONEUM: Small amount of free fluid extends along the liver capsule with some curv ilinear hyperdensity. VASCULATURE: No evidence of aortic aneurysm. MUSCULOSKELETAL: No acute osseous abnormalities. Mild disc degeneration changes are present throughou t the thoracolumbar spine. Left proximal femur sclerotic focus measuring 15 mm and T11 vertebral body sclerotic focus measuring 11 mm. LYMPH NODES: No gross evidence for lymphadenopathy. SOFT TISSUE/ABDOMINAL WALL: Mild anasarca of the right lateral abdominal wall. IMPRESSION: 1. Right partially visualized hydropneumothorax with split pleural sign compatible with known histor y of empyema. Fluid is extending just underneath the diaphragm some of which is simple other areas of curvilinear higher soft tissue density. It is unclear if this is infection extending below the diaph ragm versus etiologies other with blood products felt to be less likely. No immediate priors are avai lable for comparison. This is new from 01/29/2023. 2. Soft tissue swelling along the right chest wall and right abdomen correlate for cellulitis. 3. Right epicardial fat lymph nodes likely reactive to known infection. 4. Small left pleural effusion. 5. Indeterminate left femur and T11 vertebral body sclerotic foci. T11 vertebral body lesion is new from 05/08/2021 and 01/29/2023. Correlate for history of malignancy. [facility], , 05/18/2024 9:30 AM
[2024-05-18] MEDS: PIPERACILLIN-TAZOBACTAM 3.375 GM in SODIUM CHLORIDE 0.9% 100 ML IVPB STA (10:11)
[2024-05-18] MEDS ORDERED: ONDANSETRON 4 MG/2 ML VIAL IVP PRN (10:14)
[2024-05-18] MEDS: HYDROmorphone 0.5 MG/0.5 ML SYRINGE IVP PRN (10:33)
[2024-05-18] MEDS: MAGNESIUM SULFATE-D5W PMX 1 GM in DEXTROSE/WATER 1 100ML.BAG IVPB SCH (17:00)
[2024-05-18] MEDS: POTASSIUM CHLORIDE 20 MEQ in WATER FOR INJECTION 1 100ML.BAG IVPB STA (17:02)
[2024-05-18] MEDS: MAGNESIUM OXIDE 400 MG TAB PO STA (17:04)
[2024-05-18] MEDS: POTASSIUM BICARBONATE/CIT AC 20 MEQ TABLET.EFF PO STA (17:07)
[2024-05-18 17:20] LABS: Anisocytosis Slight; Basophils % (A) 0 %; Eosinophils # (A) 0.1 k/uL (0-0.7); Eosinophils % (A) 1 %; HCT 26.5 % (39.0-53.0); HGB 7.8 gm/dL (13.0-17.5); Hypochromasia Marked; Lymphocytes # (A) 1.9 k/uL (1.0-4.8); Lymphocytes % (A) 19 %; MCH 22.7 pg (25.0-35.0); MCHC 29.3 g/dL (31.0-37.0); MCV 77.3 fL (80.0-100.0); Mean Platelet Volume 6.6; Microcytosis Slight; Monocytes # (A) 0.6 k/uL (0-1.0); Monocytes % (A) 6 %; Neutrophils # (A) 7.4 k/uL (1.3-7.7); Neutrophils % (A) 73 %; Platelet Count 820 k/uL (150-450); RBC 3.43 m/uL (4.30-5.90); RDW 19.4 % (11.5-15.5); WBC 10.2 k/uL (3.8-10.6)
[2024-05-18 20:15] VITALS: BP 103/76; PULSE 106; RESP 21; TEMP 97.9
[2024-05-18] MEDS ORDERED: PANTOPRAZOLE 40 MG/10 ML VIAL IVP SCH (21:00)
== END 2024-05-18 20:09 | disposition other institution (70) ==
LOC: EC 06:28
DX: J90 Pleural effusion, not elsewhere classified (principal); K92.0 Hematemesis; J93.9 Pneumothorax, unspecified; Z88.8 Allergy status to other drugs, medicaments and biological substances
CPT/HCPCS: 36415; 93005; 86900; 86901; 80053; 83605; 83735; 85025; 85610; 85730; 86850; 87040; 71046; 74177; 99291; 96365; 96366; 96367; 96368; 96375 ×3; 96376; J2543; J3480; J2405; J3475; J1171; Q9967; J2470

== ENCOUNTER 2024-06-03 16:02 | Observation (INO) | payer MEDICARE ==
[2024-06-03 18:12] LABS: ALT 10 U/L (4-49); AST 29 U/L (17-59); African American GFR (CKD) >90 (>60 ml/min/1.73 sqM); Albumin 2.7 g/dL (3.5-5.0); Alkaline Phosphatase 84 U/L (38-126); Anion Gap 4 mmol/L; Anisocytosis Slight; Basophils % (A) 0 %; Blood Urea Nitrogen 8 mg/dL (9-20); Calcium 8.6 mg/dL (8.4-10.2); Carbon Dioxide 27 mmol/L (22-30); Chloride 110 mmol/L (98-107); Eosinophils # (A) 0.2 k/uL (0-0.7); Eosinophils % (A) 1 %; Glucose 107 mg/dL (74-99); Hypochromasia Marked; Lymphocytes % (A) 9 %; MCH 23.4 pg (25.0-35.0); MCHC 29.7 g/dL (31.0-37.0); MCV 78.7 fL (80.0-100.0); Magnesium 1.7 mg/dL (1.6-2.3); Mean Platelet Volume 7.3; Microcytosis Slight; Monocytes # (A) 0.7 k/uL (0-1.0); Monocytes % (A) 6 %; Neutrophils # (A) 9.2 k/uL (1.3-7.7); Neutrophils % (A) 83 %; Non-African American GFR(CKD) >90 (>60 ml/min/1.73 sqM); Platelet Count 848 k/uL (150-450); Poikilocytosis Slight; Potassium 3.4 mmol/L (3.5-5.1); RBC 4.06 m/uL (4.30-5.90); RDW 18.7 % (11.5-15.5); Sodium 141 mmol/L (137-145); Total Bilirubin 0.7 mg/dL (0.2-1.3); Total Protein 6.6 g/dL (6.3-8.2); WBC 11.2 k/uL (3.8-10.6)
--- NOTE | 2024-06-03 18:18 | ED ---
General Adult HPI - General Chief complaint: Weakness Stated complaint: weakness Time Seen by Provider: 06/03/24 16:54 Source: patient, RN notes reviewed, old records reviewed Mode of arrival: wheelchair Limitations: no limitations - History of Present Illness Initial comments: 68-year-old male presenting for evaluation of weakness, dyspnea. Patient6 has had multiple recent hospital admissions. He states that he continues to have generalized weakness and exertional dyspnea. He denies fever. Denies central chest pain. He states that he contacted his primary care provider with regards to possible rehabilitation and they requested that the patient present to the emergency department. - Related Data Home Medications Medication Instructions Recorded Confirmed Omeprazole 20 mg PO DAILY 07/04/22 05/18/24 Carboxymethylcellulose Sodium 1 drop BOTH EYES TID PRN 01/29/23 05/18/24 [Thera Tears] Acetaminophen Tab [Tylenol] 650 mg PO TID PRN 05/18/24 05/18/24 Apixaban [Eliquis] 5 mg PO BID 05/18/24 05/18/24 Capmatinib Hydrochloride [Tabrecta] 800 mg PO DAILY 05/18/24 05/18/24 Ferrous Sulfate [Feosol] 325 mg PO W/BRKFST 05/18/24 05/18/24 Lactose-Reduced Food [Ensure Plus] 1 can PO TID 05/18/24 05/18/24 Mirtazapine [Remeron] 15 mg PO HS 05/18/24 05/18/24 Potassium Chloride ER [K-Dur 20] 20 meq PO DAILY 05/18/24 05/18/24 methocarbamoL [Robaxin] 500 mg PO QID PRN 05/18/24 05/18/24 Allergies Allergy/AdvReac Type Severity Reaction Status Date / Time benazepril AdvReac Angioedema Verified 06/03/24 16:14 simvastatin [From Zocor] AdvReac abnormal Verified 06/03/24 16:14 liver enzymes Review of Systems ROS Statement: Those systems with pertinent positive or pertinent negative responses have been documented in the HPI. ROS Other: All systems not noted in ROS Statement are negative. Past Medical History Past Medical History: Cancer, Diabetes Mellitus, GERD/Reflux, Hyperlipidemia, Hypertension Additional Past Medical History / Comment(s): lung cancer History of Any Multi-Drug Resistant Organisms: None Reported Past Surgical History: No Surgical Hx Reported Additional Past Surgical History / Comment(s): recent chest tube Past Anesthesia/Blood Transfusion Reactions: No Reported Reaction Additional Past Anesthesia/Blood Transfusion Reaction / Comment(s): Has never had General Anesthesia. Past Psychological History: No Psychological Hx Reported Smoking Status: Never smoker Past Alcohol Use History: Occasional Past Drug Use History: Marijuana - Past Family History Mother Family Medical History: Cancer General Exam Limitations: no limitations General appearance: alert, in no apparent distress Head exam: Present: atraumatic, normocephalic Eye exam: Present: normal appearance, PERRL Respiratory exam: Present: decreased breath sounds (Decreased breath sounds on the right) Cardiovascular Exam: Present: regular rate, normal rhythm GI/Abdominal exam: Present: soft. Absent: distended, tenderness, guarding Extremities exam: Present: normal inspection, normal capillary refill Neurological exam: Present: alert, oriented X3, CN II-XII intact. Absent: motor sensory deficit Psychiatric exam: Present: normal affect, normal mood Skin exam: Present: warm, dry, intact. Absent: cyanosis, diaphoretic Course Vital Signs 06/03/24 06/03/24 16:14 18:43 Temperature 97.9 F Pulse Rate 117 H 101 H Respiratory 20 16 Rate Blood Pressure 101/72 115/83 O2 Sat by Pulse 100 100 Oximetry Medical Decision Making - Medical Decision Making Was pt. sent in by a medical professional or institution (, PA, RESIDENTIAL LIVING ASSISTANT, urgent care, hospital, or care home...) When possible be specific @ -No Did you speak to anyone other than the patient for history (EMS, parent, family, police, friend...)? What history was obtained from this source @ -No Did you review nursing and triage notes (agree or disagree)? Why? @ -I reviewed and agree with nursing and triage notes Were old charts reviewed (outside hosp., previous admission, EMS record, old EKG, old radiological studies, urgent care reports/EKG's, care home records)? Report findings @ -No old charts were reviewed Differential Diagnosis (chest pain, altered mental status, abdominal pain women, abdominal pain men, vaginal bleeding, weakness, fever, dyspnea, syncope, headache, dizziness, GI bleed, back pain, seizure, CVA, palpatations, mental health, musculoskeletal)? @ -Not applicable EKG interpreted by me (3pts min.). @ -[Sinus tachycardia right bundle branch block rate of 103, WA interval 136, QRS duration [address] segment elevation X-rays interpreted by me (1pt min.). @ -Chest x-ray showing large hydropneumothorax which is stable from prior. CT interpreted by me (1pt min.). @ -None done U/S interpreted by me (1pt. min.). @ -None done What testing was considered but not performed or refused? (CT, X-rays, U/S, labs)? Why? @ -None What meds were considered but not given or refused? Why? @ -None Did you discuss the management of the patient with other professionals (professionals i.e. , PA, RESIDENTIAL LIVING ASSISTANT, lab, RT, psych nurse, renal social worker, retention representative, teacher, asset protection officer, outpatient case manager)? Give summary @ -No Was smoking cessation discussed for >3mins.? @ -No Was critical care preformed (if so, how long)? @ -No Were there social determinants of health that impacted care today? How? (Homelessness, low income, unemployed, alcoholism, drug addiction, transportation, low edu. Level, literacy, decrease access to med. care, shelter, rehab)? @ -No Was there de-escalation of care discussed even if they declined (Discuss DNR or withdrawal of care, Hospice)? DNR status @ -No What co-morbidities impacted this encounter? (DM, HTN, Smoking, COPD, CAD, Cancer, CVA, ARF, Chemo, Hep., AIDS, mental health diagnosis, sleep apnea, morbid obesity)? @ -[Chronic hydropneumothorax Was patient admitted / discharged? Hospital course, mention meds given and route, prescriptions, significant lab abnormalities, going to OR and other pertinent info. @ -68-year-old male presenting with request for rehabilitation. Chronic weakness and dyspnea. I did repeat chest x-ray which shows stable hydropneumothorax. Patient had been transferred to [facility] for further evaluation of this and states that they had placed him on antibiotics but did not do any further procedures. Patient's laboratory testing reveals a mild leukocytosis, stable and improved anemia. Patient will be admitted for possible placement, case discussed with Dr. Adler. Pulmonology placed on consult for evaluation. Undiagnosed new problem with uncertain prognosis? @ -No Drug Therapy requiring intensive monitoring for toxicity (Heparin, Nitro, Insulin, Cardizem)? @ -No Were any procedures done? @ -No Diagnosis/symptom? @ -Weakness, hydropneumothorax Acute, or Chronic, or Acute on Chronic? @ -[Chronic Uncomplicated (without systemic symptoms) or Complicated (systemic symptoms)? @ -Default Side effects of treatment? @ -No Exacerbation, Progression, or Severe Exacerbation? @ -No Poses a threat to life or bodily function? How? (Chest pain, [place], [place], pneumonia, PE, COPD, DKA, ARF, appy, cholecystitis, CVA, Diverticulitis, Homicidal, Suicidal, threat to staff... and all critical care pts) @ -Low risk at this time - Lab Data Result diagrams: 06/03/24 17:44 06/03/24 17:44 Lab Results 06/03/24 06/03/24 06/03/24 Range/Units 17:44 17:44 17:44 WBC 11.2 H (3.8-10.6) k/uL RBC 4.06 L (4.30-5.90) m/uL Hgb 9.5 L D (13.0-17.5) gm/dL Hct 32.0 L (39.0-53.0) % MCV 78.7 L (80.0-100.0) fL MCH 23.4 L (25.0-35.0) pg MCHC 29.7 L (31.0-37.0) g/dL RDW 18.7 H (11.5-15.5) % Plt Count 848 H (150-450) k/uL MPV 7.3 Neutrophils % 83 % Lymphocytes % 9 % Monocytes % 6 % Eosinophils % 1 % Basophils % 0 % Neutrophils # 9.2 H (1.3-7.7) k/uL Lymphocytes # 1.0 (1.0-4.8) k/uL Monocytes # 0.7 (0-1.0) k/uL Eosinophils # 0.2 (0-0.7) k/uL Basophils # 0.0 (0-0.2) k/uL Hypochromasia Marked Poikilocytosis Slight Anisocytosis Slight Microcytosis Slight PT 12.1 (10.0-12.5) sec INR 1.1 (<1.2) APTT 23.4 (22.0-30.0) sec Sodium 141 (137-145) mmol/L Potassium 3.4 L (3.5-5.1) mmol/L Chloride 110 H (98-107) mmol/L Carbon Dioxide 27 (22-30) mmol/L Anion Gap 4 mmol/L BUN 8 L (9-20) mg/dL Creatinine 0.57 L (0.66-1.25) mg/dL Est GFR (CKD-EPI)AfAm >90 (>60 ml/min/1.73 sqM) Est GFR (CKD-EPI)NonAf >90 (>60 ml/min/1.73 sqM) Glucose 107 H (74-99) mg/dL Calcium 8.6 (8.4-10.2) mg/dL Magnesium 1.7 (1.6-2.3) mg/dL Total Bilirubin 0.7 (0.2-1.3) mg/dL AST 29 (17-59) U/L ALT 10 (4-49) U/L Alkaline Phosphatase 84 (38-126) U/L NT-Pro-B Natriuret Pep 342 pg/mL Total Protein 6.6 (6.3-8.2) g/dL Albumin 2.7 L (3.5-5.0) g/dL Urine Color Urine Appearance (Clear) Urine pH (5.0-8.0) Ur Specific [place] (1.001-1.035) Urine Protein (Negative) Urine Glucose (UA) (Negative) Urine Ketones (Negative) Urine Blood (Negative) Urine Nitrite (Negative) Urine Bilirubin (Negative) Urine Urobilinogen (<2.0) mg/dL Ur Leukocyte Esterase (Negative) Urine RBC (0-5) /hpf Urine WBC (0-5) /hpf Ur Squamous Epith Cells (0-4) /hpf Amorphous Sediment (None) /hpf Urine Mucus (None) /hpf 06/03/24 Range/Units 21:48 WBC (3.8-10.6) k/uL RBC (4.30-5.90) m/uL Hgb (13.0-17.5) gm/dL Hct (39.0-53.0) % MCV (80.0-100.0) fL MCH (25.0-35.0) pg MCHC (31.0-37.0) g/dL RDW (11.5-15.5) % Plt Count (150-450) k/uL MPV Neutrophils % % Lymphocytes % % Monocytes % % Eosinophils % % Basophils % % Neutrophils # (1.3-7.7) k/uL Lymphocytes # (1.0-4.8) k/uL Monocytes # (0-1.0) k/uL Eosinophils # (0-0.7) k/uL Basophils # (0-0.2) k/uL Hypochromasia Poikilocytosis Anisocytosis Microcytosis PT (10.0-12.5) sec INR (<1.2) APTT (22.0-30.0) sec Sodium (137-145) mmol/L Potassium (3.5-5.1) mmol/L Chloride (98-107) mmol/L Carbon Dioxide (22-30) mmol/L Anion Gap mmol/L BUN (9-20) mg/dL Creatinine (0.66-1.25) mg/dL Est GFR (CKD-EPI)AfAm (>60 ml/min/1.73 sqM) Est GFR (CKD-EPI)NonAf (>60 ml/min/1.73 sqM) Glucose (74-99) mg/dL Calcium (8.4-10.2) mg/dL Magnesium (1.6-2.3) mg/dL Total Bilirubin (0.2-1.3) mg/dL AST (17-59) U/L ALT (4-49) U/L Alkaline Phosphatase (38-126) U/L NT-Pro-B Natriuret Pep pg/mL Total Protein (6.3-8.2) g/dL Albumin (3.5-5.0) g/dL Urine Color Yellow Urine Appearance Cloudy (Clear) Urine pH 7.0 (5.0-8.0) Ur Specific [place] 1.022 (1.001-1.035) Urine Protein Trace H (Negative) Urine Glucose (UA) Negative (Negative) Urine Ketones Negative (Negative) Urine Blood Negative (Negative) Urine Nitrite Negative (Negative) Urine Bilirubin Negative (Negative) Urine Urobilinogen <2.0 (<2.0) mg/dL Ur Leukocyte Esterase Negative (Negative) Urine RBC <1 (0-5) /hpf Urine WBC 3 (0-5) /hpf Ur Squamous Epith Cells <1 (0-4) /hpf Amorphous Sediment Rare H (None) /hpf Urine Mucus Rare H (None) /hpf Disposition Clinical Impression: Pleural effusion, Pneumothorax, Generalized weakness Disposition: ADMITTED IP TO THIS HOSP Condition: Stable Is patient prescribed a controlled substance at d/c from ED?: No Referrals: [facility],Clinic [Primary Care Provider] - 1-2 days Time of Disposition: 22:07
[2024-06-03 18:20] LABS: NT-Pro-B-Type Natriuretic Pept 342 pg/mL
[2024-06-03 18:23] LABS: HGB 9.5 gm/dL (13.0-17.5)
[2024-06-03 18:24] LABS: INR 1.1 (<1.2); Partial Thromboplastin Time 23.4 sec (22.0-30.0); Prothrombin Time 12.1 sec (10.0-12.5)
[2024-06-03] MEDS: SODIUM CHLORIDE 0.9% 1,000 ML IV SCH (18:41)
--- NOTE | 2024-06-03 19:47 | XR ---
EXAMINATION TYPE: XR chest 2V DATE OF EXAM: 06/03/2024 6:51 PM COMPARISON: None. CLINICAL INDICATION: Male, 68 years old with history of Weakness, TECHNIQUE: XR chest 2V view(s) obtained. FINDINGS: The heart size is normal. The pulmonary vasculature is normal. There is an air-fluid level within the right thorax. Empyema should be considered. Hydrothorax be con sidered. Small left pleural effusion is present.. IMPRESSION: 1. Right-sided hydropneumothorax, present previously, appears unchanged from comparison. Consider emp yema. 2. Small left pleural effusion [facility], , 06/03/2024 7:45 PM
[2024-06-03 21:55] LABS: Amorphous Sediment,Urine Rare /hpf; Appearance,Urine Cloudy (Clear); Bilirubin,Urine Negative (Negative); Blood,Urine Negative (Negative); Color,Urine Yellow; Glucose,Urine (UA) Negative (Negative); Ketones,Urine Negative (Negative); Leukocyte Esterase,Urine Negative (Negative); Mucus,Urine Rare /hpf; Nitrite,Urine Negative (Negative); Protein,Urine Trace (Negative); RBC,Urine <1 /hpf (0-5); Specific Gravity,Urine 1.022 (1.001-1.035); Squamous Epithelial Cell,Urine <1 /hpf (0-4); Urobilinogen,Urine <2.0 mg/dL (<2.0); WBC,Urine 3 /hpf (0-5)
[2024-06-03] MEDS ORDERED: NALOXONE 0.4 MG/ML 1 ML VIAL IV PRN (22:00)
--- NOTE | 2024-06-03 23:29 | P.HPIM ---
History of Present Illness H&P Date: 06/03/24 Chief Complaint: Generalized Weakness History of present illness; 68-year-old male with stage IV lung cancer receiving immunotherapy, diabetes mellitus, GERD, hyperlipidemia, and hypertension presents with complaints of weakness and dyspnea. Reports he continues to have generalized weakness and exertion apnea. States he contacted his primary care provider in regards to possible assisted living and they requested the patient be seen in the emergency department. Reports he feels he can no longer live at home by himself and cannot achieve his daily living goals alone. Denies fever, chest pain, shortness of breath, palpitations, nausea, vomiting, diarrhea, constipation, abdominal pain, and lower extremity swelling. EKG done in the ER showed heart rate of 103 bpm, no ST segment elevation or depression seen, no T-wave inversions seen. Sinus tachycardia, right bundle branch block, and QTc 440 ms ER CXR: Right-sided hydropneumothorax, previously present, appears unchanged from comparison. Small left pleural effusion. REVIEW OF SYSTEMS: The rest of the 14-point review of systems is negative. PHYSICAL EXAMINATION: GENERAL: The patient is alert and oriented x3, not in any acute distress. Well developed, well nourished. HEENT: Pupils are round and equally reacting to light. EOMI. No scleral icterus. No conjunctival pallor. Normocephalic, atraumatic. CARDIOVASCULAR: S1 and S2 present. No murmurs, rubs, or gallops. PULMONARY: Chest is clear to auscultation b/l, no wheezing or crackles. ABDOMEN: Soft, nontender, nondistended, normoactive bowel sounds. No palpable organomegaly. MUSCULOSKELETAL: No joint swelling or deformity. EXTREMITIES: No cyanosis, clubbing, or pedal edema. NEUROLOGICAL: Gross neurological examination did not reveal any focal deficits. SKIN: No rashes. Assessment:68-year-old male with stage IV lung cancer receiving immunotherapy, diabetes mellitus, GERD, hyperlipidemia, and hypertension presents with complai nts of weakness and dyspnea. Patient admitted to the medicine service with likely less than 2 midnight stay. Plan: #Generalized weakness: Potentially secondary to anemia versus malignancy -Hemoglobin 9.5 at baseline, platelets 848, and WBC 11.2 -Fall precautions -PT/OT thrombocytosis , unknown underlying cause platelet 848 IVF hydration with d5 0.45 NS at 75 cc per hour #Hydropneumothorax: -Right-sided, previously present and appears unchanged from previous -Pulmonology consulted by ED -Continue to monitor #Stage IV lung cancer: -Continue home capmatinib hydrochloride 800 mg p.o. daily Chronic conditions: #History of right upper extremity thrombosis -Resume Eliquis 5 mg p.o. twice daily once confirmed by pharmacy #Diabetes mellitus -Sliding scale -Accu-Cheks #Hypertension -No home medications #Hyperlipidemia -No home medications F: d5 0.45 NS 75 cc/h E: Potassium N: Consistent carb diet DVT ppx: Eliquis 5 mg twice daily GI ppx: Protonix 40 mg p.o. daily Dispo: As stated above in assessment. Gabriel George MD PGY-1 FM Dictation was produced using [employer] dictation software. please excuse any grammatical, word or spelling errors. Past Medical History Past Medical History: Cancer, Diabetes Mellitus, GERD/Reflux, Hyperlipidemia, Hypertension Additional Past Medical History / Comment(s): lung cancer History of Any Multi-Drug Resistant Organisms: None Reported Past Surgical History: No Surgical Hx Reported Additional Past Surgical History / Comment(s): recent chest tube Past Anesthesia/Blood Transfusion Reactions: No Reported Reaction Additional Past Anesthesia/Blood Transfusion Reaction / Comment(s): Has never had General Anesthesia. Past Psychological History: No Psychological Hx Reported Smoking Status: Never smoker Past Alcohol Use History: Occasional Past Drug Use History: Marijuana - Past Family History Mother Family Medical History: Cancer Medications and Allergies Home Medications Medication Instructions Recorded Confirmed Type Omeprazole 20 mg PO DAILY 07/04/22 05/18/24 History Carboxymethylcellulose Sodium 1 drop BOTH EYES TID PRN 01/29/23 05/18/24 History [Thera Tears] Acetaminophen Tab [Tylenol] 650 mg PO TID PRN 05/18/24 05/18/24 History Apixaban [Eliquis] 5 mg PO BID 05/18/24 05/18/24 History Capmatinib Hydrochloride [Tabrecta] 800 mg PO DAILY 05/18/24 05/18/24 History Ferrous Sulfate [Feosol] 325 mg PO W/BRKFST 05/18/24 05/18/24 History Lactose-Reduced Food [Ensure Plus] 1 can PO TID 05/18/24 05/18/24 History Mirtazapine [Remeron] 15 mg PO HS 05/18/24 05/18/24 History Potassium Chloride ER [K-Dur 20] 20 meq PO DAILY 05/18/24 05/18/24 History methocarbamoL [Robaxin] 500 mg PO QID PRN 05/18/24 05/18/24 History Allergies Allergy/AdvReac Type Severity Reaction Status Date / Time benazepril AdvReac Angioedema Verified 06/03/24 16:14 simvastatin [From Zocor] AdvReac abnormal Verified 06/03/24 16:14 liver enzymes Physical Exam Vitals: Vital Signs Temp Pulse Resp BP Pulse Ox 06/03/24 18:43 101 H 16 115/83 100 06/03/24 16:14 97.9 F 117 H 20 101/72 100 Intake and Output 06/03/24 06/03/24 06/03/24 06:59 14:59 22:59 Other: Weight 70.307 kg Results CBC & Chem 7: 06/03/24 17:44 06/03/24 17:44 Labs: Abnormal Lab Results - Last 24 Hours (Table) 06/03/24 06/03/24 Range/Units 17:44 17:44 WBC 11.2 H (3.8-10.6) k/uL RBC 4.06 L (4.30-5.90) m/uL Hgb 9.5 L D (13.0-17.5) gm/dL Hct 32.0 L (39.0-53.0) % MCV 78.7 L (80.0-100.0) fL MCH 23.4 L (25.0-35.0) pg MCHC 29.7 L (31.0-37.0) g/dL RDW 18.7 H (11.5-15.5) % Plt Count 848 H (150-450) k/uL Neutrophils # 9.2 H (1.3-7.7) k/uL Potassium 3.4 L (3.5-5.1) mmol/L Chloride 110 H (98-107) mmol/L BUN 8 L (9-20) mg/dL Creatinine 0.57 L (0.66-1.25) mg/dL Glucose 107 H (74-99) mg/dL Albumin 2.7 L (3.5-5.0) g/dL Assessment and Plan Assessment: I have seen and evaluated the patient today. I Discussed the case with the resident and agree with the resident's findings I edited the assessment and plan as necessary as documented in the resident's note.
[2024-06-04] MEDS: ACETAMINOPHEN TAB 325 MG TAB PO PRN (01:17)
[2024-06-04] MEDS: DEXTROSE 5%-0.45% NACL 1,000 ML IV SCH (01:24)
[2024-06-04 01:33] LABS: Glucose,Whole Blood 74 mg/dL (70-110)
[2024-06-04 06:47] LABS: Glucose,Whole Blood 111 mg/dL (70-110)
[2024-06-04] MEDS: INSULIN ASPART (NovoLOG) 100 UNIT/ML VIAL SQ SCH (06:49)
[2024-06-04] MEDS: PANTOPRAZOLE 40 MG TABLET PO SCH (06:50)
--- NOTE | 2024-06-04 08:48 | US ---
EXAMINATION TYPE: US chest DATE OF EXAM: 06/04/2024 COMPARISON: Multiple, most recent XR 06/03/2024 CLINICAL INDICATION: Male, 68 years old with history of Markings for thoracentesis by pulmonary staff ; TECHNIQUE: Grayscale imaging of the chest. Targeted ultrasound of the posterior lower bilateral haylee thoraces FINDINGS: EXAM MEASUREMENTS: Right Pleural Effusion pocket size: 0 cm Right skin surface to fluid distance: 0 cm Left Pleural Effusion pocket size: 4.2 cm Left skin surface to fluid distance: 1.9 cm Left side marked for possible thoracentesis outside the dept. Pulmonologists are able to review the images in the patient?s EMR. IMPRESSIONS: 1. Left pleural effusion [facility], , 06/04/2024 8:45 AM
[2024-06-04 11:42] LABS: Glucose,Whole Blood 115 mg/dL (70-110)
--- NOTE | 2024-06-04 12:26 | P.CNPUL ---
History of Present Illness Consult date: 06/04/24 Requesting physician: Sharron Faye Reason for consult: abnormal CXR/CT Chief complaint: Weakness, poor appetite History of present illness: This is a 68-year-old male patient with a known history of hypertension, hyperlipidemia, diabetes mellitus type 2, current pleural effusions with venous right sided thoracentesis in December 2022 in January 2023 with cultures negative, cytology negative for malignancy. Previous bronchoscopy with biopsies of the right lower lobe negative for malignancy in December 2022. He states he was diagnosed with stage IV lung cancer at [facility] approximately 1 year ago. He is currently receiving immuno therapy in the form of Tabrecta. He has been having ongoing issues with weakness, poor appetite and fatigue. He talked to his primary care provider who recommended him coming to the ER for eventual subacute rehabilitation placement. The patient lives at home alone. Chest x- ray reveals hydropneumothorax on the right, chronic and seen on previous x-rays. Appears unchanged. There is a small left pleural effusion. Ultrasound of the chest revealed no free-flowing fluid on the right. Of small 4.2 cm pocket on the left. White count 11.2. Hemoglobin 9.5. Platelets 848. INR 1.1. Sodium 141. Potassium 3.4. Bicarb 27. BUN 8. Creatinine 0.57. Glucose 107. Urinalysis clean. He is seen today in consultation on the regular medical floor. He is currently sitting up in bed. Awake and alert in no acute distress. Maintaining O2 saturations in the 90s on room air. He denies any shortness of breath, cough or congestion. Review of Systems REVIEW OF SYSTEMS: CONSTITUTIONAL: Generalized weakness. Denies any recent significant weight loss or weight gain. EYES: Denies change in vision. EARS, NOSE, MOUTH, THROAT: Denies headaches, denies sore throat. CARDIOVASCULAR: Denies chest pain, palpitations or syncopal episodes. RESPIRATORY: Denies shortness of breath, cough, congestion or hemoptysis. GASTROINTESTINAL: Poor appetite, denies abdominal pain GENITOURINARY: Denies hematuria, denies infections. MUSKULOSKELETAL: Denies pain, denies swelling. INTEGUMENTARY: Denies rash, denies eczema. NEUROLOGICAL: Denies recent memory loss, no recent seizure activity. PSYCHIATRIC: Denies anxiety, denies depression. HEMATOLOGIC/LYMPHATIC: Denies anemia, denies enlarged lymph nodes. Past Medical History Past Medical History: Cancer, Diabetes Mellitus, GERD/Reflux, Hyperlipidemia, Hypertension Additional Past Medical History / Comment(s): lung cancer History of Any Multi-Drug Resistant Organisms: None Reported Past Surgical History: No Surgical Hx Reported Additional Past Surgical History / Comment(s): recent chest tube Past Anesthesia/Blood Transfusion Reactions: No Reported Reaction Additional Past Anesthesia/Blood Transfusion Reaction / Comment(s): Has never had General Anesthesia. Past Psychological History: No Psychological Hx Reported Smoking Status: Never smoker Past Alcohol Use History: Occasional Past Drug Use History: Marijuana - Past Family History Mother Family Medical History: Cancer Medications and Allergies Home Medications Medication Instructions Recorded Confirmed Type Carboxymethylcellulose Sodium 1 drop BOTH EYES TID PRN 01/29/23 06/04/24 History [Thera Tears] Acetaminophen Tab [Tylenol] 650 mg PO TID PRN 05/18/24 06/04/24 History Apixaban [Eliquis] 5 mg PO BID 05/18/24 06/04/24 History Capmatinib Hydrochloride [Tabrecta] 400 mg PO BID 05/18/24 06/04/24 History Ferrous Sulfate [Feosol] 325 mg PO W/BRKFST 05/18/24 06/04/24 History Lactose-Reduced Food [Ensure Plus] 1 can PO TID 05/18/24 06/04/24 History Mirtazapine [Remeron] 15 mg PO HS 05/18/24 06/04/24 History Potassium Chloride ER [K-Dur 20] 20 meq PO DAILY 05/18/24 06/04/24 History Atorvastatin [Lipitor] 80 mg PO HS 06/04/24 06/04/24 History HYDROcodone/APAP 7.5-325MG [[place] 1 tab PO Q6HR PRN 06/04/24 06/04/24 History 7.5-325] Pantoprazole [Protonix] 40 mg PO DAILY 06/04/24 06/04/24 History methocarbamoL [Robaxin-750] 750 mg PO TID PRN 06/04/24 06/04/24 History Allergies Allergy/AdvReac Type Severity Reaction Status Date / Time benazepril AdvReac Angioedema Verified 06/04/24 09:59 simvastatin [From Zocor] AdvReac abnormal Verified 06/04/24 09:59 liver enzymes Physical Exam Vitals: Vital Signs Temp Pulse Pulse Resp BP BP Pulse Ox 06/04/24 08:00 97.9 F 93 18 119/82 06/03/24 22:56 97.5 F L 108 H 20 117/76 95 06/03/24 18:43 101 H 16 115/83 100 06/03/24 16:14 97.9 F 117 H 20 101/72 100 Intake and Output 06/03/24 06/04/24 06/04/24 22:59 06:59 14:59 Other: # Voids 1 # Bowel Movements 1 Weight 70.307 kg GENERAL EXAM: Alert, pleasant 68-year-old male, on room air, comfortable in no apparent distress. HEAD: Normocephalic. EYES: Normal reaction of pupils, equal size. NOSE: Clear with pink turbinates. THROAT: No erythema or exudates. NECK: No masses, no JVD. CHEST: No chest wall deformity. LUNGS: Equal air entry with diminished breath sounds. CVS: S1 and S2 normal with no audible murmur, regular rhythm. ABDOMEN: No hepatosplenomegaly, normal bowel sounds, no guarding or rigidity. SPINE: No scoliosis or deformity SKIN: No rashes CENTRAL NERVOUS SYSTEM: No focal deficits, tone is normal in all 4 extremities. EXTREMITIES: There is no peripheral edema. No clubbing, no cyanosis. Peripheral pulses are intact. Results - Laboratory Findings CBC and BMP: 06/03/24 17:44 06/03/24 17:44 PT/INR, D-dimer PT 12.1 sec (10.0-12.5) 06/03/24 17:44 INR 1.1 (<1.2) 06/03/24 17:44 Abnormal lab findings: Abnormal Labs 06/03/24 06/03/24 06/03/24 17:44 17:44 21:48 WBC 11.2 H RBC 4.06 L Hgb 9.5 L D Hct 32.0 L MCV 78.7 L MCH 23.4 L MCHC 29.7 L RDW 18.7 H Plt Count 848 H Neutrophils # 9.2 H Potassium 3.4 L Chloride 110 H BUN 8 L Creatinine 0.57 L Glucose 107 H POC Glucose (mg/dL) Albumin 2.7 L Urine Protein Trace H Amorphous Sediment Rare H Urine Mucus Rare H 06/04/24 06/04/24 06:44 11:40 WBC RBC Hgb Hct MCV MCH MCHC RDW Plt Count Neutrophils # Potassium Chloride BUN Creatinine Glucose POC Glucose (mg/dL) 111 H 115 H Albumin Urine Protein Amorphous Sediment Urine Mucus - Diagnostic Findings Chest x-ray: image reviewed Assessment and Plan Assessment: Generalized weakness secondary to poor appetite Stage IV lung cancer diagnosed at [facility] approximately 1 year ago currently on Tabrecta History of recurrent right-sided pleural effusions with thoracentesis x 2 back in 2022. Negative cytology. Bronchoscopy with biopsies of the right lung negative for malignancy in 2022. Current chest x-ray reveals hydropneumothorax, seen previously and unchanged. No fluid on ultrasound today Hyperlipidemia Hyperlipidemia Gastroesophageal reflux disease Diabetes mellitus, type II Plan: The patient was seen and evaluated Chest x-ray, ultrasound, labs and medications reviewed No plans for thoracentesis Stable and on room air Awaiting subacute rehabilitation placement I have personally seen and examined the patient, performed the documentation and the assessment and plan as written. Number of minutes spent on the visit: 20 Dictation was produced using [employer] dictation software. Please excuse any grammatical, word or spelling errors.
[2024-06-04 13:28] VITALS: BMI 21.6
--- NOTE | 2024-06-04 16:17 | P.PN ---
Subjective Progress Note Date: 06/04/24 Patient has no complaints at this time. On review of systems, does report appetite has been poor, but is hoping that and improves in coming days. Gen: In NAD, non-toxic HEENT: normocephalic, atraumatic, hearing acuity is intant, mucous membranes moist CVS: perfusing all extremities well, no pitting edema, Respiratory: symmetric chest expansion, no accessory muscle use, GI: soft, NTTP, ND, : no suprapubic tenderness, no CVA tenderness MSK/Derm: no rashes, cyanosis Neuro: CN II-XII intact, no motor weakness, Psych: cooperative, euthymic mood, judgment and insight is intact Hospital course: 68-year-old male with stage IV lung cancer receiving immunotherapy, diabetes mellitus, GERD, hyperlipidemia, and hypertension presented with complaints of weakness and dyspnea. EKG done in the ER showed heart rate of 103 bpm, no ST segment elevation or depression seen, no T-wave inversions seen. Sinus tachycardia, right bundle branch block, and QTc 440 ms ER CXR: Right-sided hydropneumothorax, previously present, appears unchanged from comparison. Small left pleural effusion. Assessment/Plan: #Generalized weakness: Potentially secondary to anemia versus malignancy -Hemoglobin 9.5 at baseline, platelets 848, and WBC 11.2 -Fall precautions -PT/OT #Thrombocytosis , likely secondary to malignancy platelet 848 IVF hydration with d5 0.45 NS at 75 cc per hour #Hydropneumothorax: -Right-sided, previously present and appears unchanged from previous -Pulmonology consulted by ED -Continue to monitor #Stage IV lung cancer: -Continue home capmatinib hydrochloride 800 mg p.o. daily Chronic conditions: #History of right upper extremity thrombosis -Resume Eliquis 5 mg p.o. twice daily once confirmed by pharmacy #Diabetes mellitus -Sliding scale -Accu-Cheks #Hypertension -No home medications #Hyperlipidemia -No home medications F: d5 0.45 NS 75 cc/h E: Potassium N: Consistent carb diet DVT ppx: Eliquis 5 mg twice daily GI ppx: Protonix 40 mg p.o. daily Dispo: CM to work on SNF/LTC/HELENE placement pending PT consultation Objective - Vital Signs Vital signs: Vital Signs Temp 98.1 F 06/04/24 14:45 Pulse 98 06/04/24 14:45 Resp 14 06/04/24 14:45 BP 116/83 06/04/24 14:45 Pulse Ox 99 06/04/24 14:45 FiO2 Intake & Output 06/03/24 06/04/24 06/04/24 18:59 06:59 18:59 Weight 70.307 kg 70.307 kg 70.307 kg Other: # Voids 1 # Bowel Movements 1 - Labs CBC & Chem 7: 06/03/24 17:44 06/03/24 17:44 Labs: Abnormal Lab Results - Last 24 Hours (Table) 06/03/24 06/03/24 06/03/24 Range/Units 17:44 17:44 21:48 WBC 11.2 H (3.8-10.6) k/uL RBC 4.06 L (4.30-5.90) m/uL Hgb 9.5 L D (13.0-17.5) gm/dL Hct 32.0 L (39.0-53.0) % MCV 78.7 L (80.0-100.0) fL MCH 23.4 L (25.0-35.0) pg MCHC 29.7 L (31.0-37.0) g/dL RDW 18.7 H (11.5-15.5) % Plt Count 848 H (150-450) k/uL Neutrophils # 9.2 H (1.3-7.7) k/uL Potassium 3.4 L (3.5-5.1) mmol/L Chloride 110 H (98-107) mmol/L BUN 8 L (9-20) mg/dL Creatinine 0.57 L (0.66-1.25) mg/dL Glucose 107 H (74-99) mg/dL POC Glucose (mg/dL) (70-110) mg/dL Albumin 2.7 L (3.5-5.0) g/dL Urine Protein Trace H (Negative) Amorphous Sediment Rare H (None) /hpf Urine Mucus Rare H (None) /hpf 06/04/24 06/04/24 Range/Units 06:44 11:40 WBC (3.8-10.6) k/uL RBC (4.30-5.90) m/uL Hgb (13.0-17.5) gm/dL Hct (39.0-53.0) % MCV (80.0-100.0) fL MCH (25.0-35.0) pg MCHC (31.0-37.0) g/dL RDW (11.5-15.5) % Plt Count (150-450) k/uL Neutrophils # (1.3-7.7) k/uL Potassium (3.5-5.1) mmol/L Chloride (98-107) mmol/L BUN (9-20) mg/dL Creatinine (0.66-1.25) mg/dL Glucose (74-99) mg/dL POC Glucose (mg/dL) 111 H 115 H (70-110) mg/dL Albumin (3.5-5.0) g/dL Urine Protein (Negative) Amorphous Sediment (None) /hpf Urine Mucus (None) /hpf
[2024-06-04 16:29] LABS: Glucose,Whole Blood 150 mg/dL (70-110)
[2024-06-04] MEDS: HYDROcodone/APAP 7.5-325MG 1 EACH TAB PO PRN (18:43)
[2024-06-04 21:58] LABS: Glucose,Whole Blood 119 mg/dL (70-110)
[2024-06-05 07:03] LABS: Glucose,Whole Blood 98 mg/dL (70-110)
[2024-06-05] MEDS ORDERED: HYDROcodone/APAP 7.5-325MG 1 EACH TAB PO PRN (10:52)
[2024-06-05] MEDS ORDERED: ARTIFICIAL TEARS-HYPROMELLOSE DROPS 15 ML BTL BOTH EYES PRN (10:52)
[2024-06-05] MEDS ORDERED: ACETAMINOPHEN TAB 325 MG TAB PO PRN (10:52)
--- NOTE | 2024-06-05 10:52 | P.PN ---
Subjective Progress Note Date: 06/05/24 Patient has no complaints at this time. On review of systems, does report appetite has been poor, but is hoping that and improves in coming days. Gen: In NAD, non-toxic HEENT: normocephalic, atraumatic, hearing acuity is intant, mucous membranes moist CVS: perfusing all extremities well, no pitting edema, Respiratory: symmetric chest expansion, no accessory muscle use, GI: soft, NTTP, ND, : no suprapubic tenderness, no CVA tenderness MSK/Derm: no rashes, cyanosis Neuro: CN II-XII intact, no motor weakness, Psych: cooperative, euthymic mood, judgment and insight is intact Hospital course: 68-year-old male with stage IV lung cancer receiving immunotherapy, diabetes mellitus, GERD, hyperlipidemia, and hypertension presented with complaints of weakness and dyspnea. EKG done in the ER showed heart rate of 103 bpm, no ST segment elevation or depression seen, no T-wave inversions seen. Sinus tachycardia, right bundle branch block, and QTc 440 ms ER CXR: Right-sided hydropneumothorax, previously present, appears unchanged from comparison. Small left pleural effusion. Assessment/Plan: #Generalized weakness: Potentially secondary to anemia versus malignancy -Hemoglobin 9.5 at baseline, platelets 848, and WBC 11.2 -Fall precautions -PT/OT #Thrombocytosis , likely secondary to malignancy platelet 848 IVF hydration with d5 0.45 NS at 75 cc per hour #Hydropneumothorax: -Right-sided, previously present and appears unchanged from previous -Pulmonology consulted by ED -Continue to monitor #Stage IV lung cancer: -Continue home capmatinib hydrochloride 800 mg p.o. daily Chronic conditions: #History of right upper extremity thrombosis -Resume Eliquis 5 mg p.o. twice daily once confirmed by pharmacy #Diabetes mellitus -Sliding scale -Accu-Cheks #Hypertension -No home medications #Hyperlipidemia -No home medications F: d5 0.45 NS 75 cc/h E: Potassium N: Consistent carb diet DVT ppx: Eliquis 5 mg twice daily GI ppx: Protonix 40 mg p.o. daily Dispo: CM to work on SNF/LTC/HELENE placement pending PT consultation Objective - Vital Signs Vital signs: Vital Signs Temp 98.2 F 06/05/24 07:30 Pulse 96 06/05/24 07:30 Resp 20 06/05/24 07:30 BP 147/89 06/05/24 07:30 Pulse Ox 98 06/05/24 07:30 FiO2 Intake & Output 06/04/24 06/05/24 06/05/24 18:59 06:59 18:59 Intake Total 1560 Balance 1560 Weight 70.307 kg Intake: Oral 1560 Other: # Voids 1 3 - Labs CBC & Chem 7: 06/03/24 17:44 06/03/24 17:44 Labs: Abnormal Lab Results - Last 24 Hours (Table) 06/04/24 06/04/24 06/04/24 Range/Units 11:40 16:24 21:56 POC Glucose (mg/dL) 115 H 150 H 119 H (70-110) mg/dL
[2024-06-05 11:44] LABS: Glucose,Whole Blood 103 mg/dL (70-110)
--- NOTE | 2024-06-05 11:55 | P.CRDCN ---
History of Present Illness Consult date: 06/05/24 Requesting physician: Oscar E Sheet Reason for Consult (text): low HR Chief complaint: weakness, fatigue, pain History of present illness: This is a pleasant XT 8-year-old gentleman with a history of stage IV lung cancer followed at [facility]. Presented to the hospital with ongoing issues with weakness, poor appetite and fatigue as well as right lateral and posterior chest discomfort at site of prior thoracentesis. He has a history of hypertension, hyperlipidemia and diabetes. No history of CAD or CHF. We were asked to the patient in consultation for low heart rate. Upon review of telemetry strips it appears there was lead loss with under estimating of heart rate and no true bradycardia patient's heart rate actually runs 80s to low 100s. He is sinus mechanism. He has no chest discomfort. His breathing is stable. He has no orthopnea or PND. He has no lower extremity edema. He has no palpitations, dizziness or lightheadedness. He has had no syncope. Past Medical History Past Medical History: Cancer, Diabetes Mellitus, GERD/Reflux, Hyperlipidemia, Hypertension Additional Past Medical History / Comment(s): lung cancer History of Any Multi-Drug Resistant Organisms: None Reported Past Surgical History: No Surgical Hx Reported Additional Past Surgical History / Comment(s): recent chest tube Past Anesthesia/Blood Transfusion Reactions: No Reported Reaction Additional Past Anesthesia/Blood Transfusion Reaction / Comment(s): Has never had General Anesthesia. Past Psychological History: No Psychological Hx Reported Smoking Status: Never smoker Past Alcohol Use History: Occasional Past Drug Use History: Marijuana - Past Family History Mother Family Medical History: Cancer Medications and Allergies Home Medications Medication Instructions Recorded Confirmed Type Carboxymethylcellulose Sodium 1 drop BOTH EYES TID PRN 01/29/23 06/04/24 History [Thera Tears] Acetaminophen Tab [Tylenol] 650 mg PO TID PRN 05/18/24 06/04/24 History Apixaban [Eliquis] 5 mg PO BID 05/18/24 06/04/24 History Capmatinib Hydrochloride [Tabrecta] 400 mg PO BID 05/18/24 06/04/24 History Ferrous Sulfate [Feosol] 325 mg PO W/BRKFST 05/18/24 06/04/24 History Lactose-Reduced Food [Ensure Plus] 1 can PO TID 05/18/24 06/04/24 History Mirtazapine [Remeron] 15 mg PO HS 05/18/24 06/04/24 History Potassium Chloride ER [K-Dur 20] 20 meq PO DAILY 05/18/24 06/04/24 History Atorvastatin [Lipitor] 80 mg PO HS 06/04/24 06/04/24 History HYDROcodone/APAP 7.5-325MG [[place] 1 tab PO Q6HR PRN 06/04/24 06/04/24 History 7.5-325] Pantoprazole [Protonix] 40 mg PO DAILY 06/04/24 06/04/24 History methocarbamoL [Robaxin-750] 750 mg PO TID PRN 06/04/24 06/04/24 History Allergies Allergy/AdvReac Type Severity Reaction Status Date / Time benazepril AdvReac Angioedema Verified 06/04/24 09:59 simvastatin [From Zocor] AdvReac abnormal Verified 06/04/24 09:59 liver enzymes Physical Exam Vitals: Vital Signs Temp Pulse Resp BP Pulse Ox 06/05/24 07:30 98.2 F 96 20 147/89 98 06/05/24 02:28 98.2 F 88 15 122/80 99 06/04/24 20:56 97.0 F L 90 15 124/68 100 06/04/24 14:45 98.1 F 98 14 116/83 99 Intake and Output 06/04/24 06/05/24 06/05/24 22:59 06:59 14:59 Intake Total 240 1320 Balance 240 1320 Intake: Oral 240 1320 Other: # Voids 1 3 PHYSICAL EXAMINATION: This is a 68-year-old male in no apparent distress at the time of my examination. VITAL SIGNS: Reviewed. HEENT: Head is atraumatic, normocephalic. Pupils are equal, round. Sclerae anicteric. Conjunctivae are clear. Mucous membranes of the mouth are moist. Neck is supple. There is no elevated jugular venous pressure. No carotid bruit is heard. CHEST EXAMINATION: Clear to auscultation bilaterally, diminished. No wheezes rales or rhonchi. Respirations even and nonlabored. HEART EXAMINATION: Heart regular, positive S1 and S2. No S3. No S4. Soft systolic murmur ABDOMEN: Soft, nontender. Bowel sounds are heard. No organomegaly noted. EXTREMITIES: 2+ peripheral pulses with no evidence of peripheral edema and no calf tenderness noted. NEUROLOGIC EXAMINATION: Patient is awake, alert and oriented x3. Results 06/03/24 17:44 06/03/24 17:44 Current Medications Generic Name Dose Route Start Last Admin Trade Name Freq PRN Reason Stop Dose Admin Acetaminophen 650 mg 06/03/24 22:00 06/04/24 15:08 Acetaminophen Tab 325 Mg Tab PO 650 mg Q6HR PRN Administration Mild Pain or Fever > 100.5 Hydrocodone Bitart/Acetaminophen 1 each 06/04/24 18:16 06/05/24 07:56 Hydrocodone/Apap 7.5-325mg 1 Each Tab PO 1 each Q6HR PRN Administration Pain Apixaban 5 mg 06/05/24 21:00 Apixaban 5 Mg Tab PO BID NIKITA Protocol Artificial Tears 1 drops 06/05/24 10:52 Artificial Tears-Hypromellose Drops 15 Ml Btl BOTH EYES TID PRN Dry Eye(s) Atorvastatin Calcium 80 mg 06/05/24 21:00 Atorvastatin 80 Mg Tab PO HS NIKITA Cyclobenzaprine HCl 10 mg 06/05/24 10:11 Cyclobenzaprine 10 Mg Tab PO TID PRN Muscle Spasm Ferrous Sulfate 325 mg 06/06/24 07:30 Ferrous Sulfate 325 Mg Tab PO W/BRKFST NIKITA Dextrose/Sodium Chloride 1,000 mls @ 125 mls/hr 06/03/24 23:45 06/05/24 09:35 Dextrose 5%-1/2ns Iv Soln IV 125 mls/hr .Q8H NIKITA Administration Insulin Aspart 0 unit 06/04/24 07:30 06/05/24 11:46 Insulin Aspart (Novolog) 100 Unit/Ml Vial SQ Not Given ACHS NIKITA Protocol Mirtazapine 15 mg 06/05/24 21:00 Mirtazapine 15 Mg Tab PO HS NIKITA Naloxone HCl 0.2 mg 06/03/24 22:00 Naloxone 0.4 Mg/Ml 1 Ml Vial IV Q2M PRN Opioid Reversal Capmatinib 400 mg 06/05/24 21:00 Hydrochloride [ PO Tabrecta] 200 Mg BID NIKITA Tablet Pantoprazole Sodium 40 mg 06/04/24 07:30 06/05/24 06:41 Pantoprazole 40 Mg Tablet PO 40 mg AC-BRKFST NIKITA Administration Intake and Output 06/04/24 06/05/24 06/05/24 22:59 06:59 14:59 Intake Total 240 1320 Balance 240 1320 Intake: Oral 240 1320 Other: # Voids 1 3 06/03/24 17:44 06/03/24 17:44 Assessment and Plan Assessment: #1 question of bradycardia with no true bradycardia on telemetry 2 generalized weakness 3 stage IV lung cancer 4 recurrent right sided pleural effusions 5 hypertension 6 hyperlipidemia 7 diabetes mellitus type 2 Plan: From cardiology's perspective no need for cardiac workup at this time. We will see the patient on an as-needed basis. Please do not hesitate to contact us with questions. PLASTER MIXER note has been reviewed, I agree with a documented findings and plan of care. Patient was seen and examined.
[2024-06-05] MEDS: CYCLOBENZAPRINE 10 MG TAB PO PRN (12:42)
[2024-06-05] MEDS ORDERED: NON FORMULARY DRUG (Lactose-Reduced Food [Ensure Plus] 237 ML Ml) PO SCH (16:00)
[2024-06-05 16:52] LABS: Glucose,Whole Blood 101 mg/dL (70-110)
[2024-06-05 19:17] LABS: Glucose,Whole Blood 97 mg/dL (70-110)
[2024-06-05] MEDS: MIRTAZAPINE 15 MG TAB PO SCH (21:07)
[2024-06-05] MEDS: APIXABAN 5 MG TAB PO SCH (21:07)
[2024-06-05] MEDS: ATORVASTATIN 80 MG TAB PO SCH (21:07)
[2024-06-06] MEDS: Capmatinib Hydrochloride [Tabrecta] 200 MG Tablet PO SCH (03:32)
[2024-06-06] MEDS: FERROUS SULFATE 325 MG TAB PO SCH (06:50)
[2024-06-06 06:56] LABS: Glucose,Whole Blood 100 mg/dL (70-110)
[2024-06-06] MEDS ORDERED: PANTOPRAZOLE 40 MG TABLET PO SCH (07:30)
[2024-06-06 08:45] LABS: Basophils # (A) 0.06 X 10*3/uL (0.00-0.10); Basophils % (A) 0.7 %; Eosinophils # (A) 0.13 X 10*3/uL (0.04-0.35); Eosinophils % (A) 1.4 %; HCT 31.9 % (39.6-50.0); HGB 9.3 g/dL (13.0-17.0); Lymphocytes # (A) 0.92 X 10*3/uL (0.90-5.00); MCH 23.1 pg (27.0-32.0); MCHC 29.2 g/dL (32.0-37.0); MCV 79.2 FL (80.0-97.0); Mean Platelet Volume 9.2 FL (9.5-12.2); Monocytes # (A) 0.86 X 10*3/uL (0.20-1.00); Monocytes % (A) 9.4 %; NRBC Per 100 WBC 0 X 10*3/uL (0.00-0.01); Neutrophils # (A) 7.16 X 10*3/uL (1.80-7.70); Neutrophils % (A) 78.2 %; Platelet Count 684 X 10*3/uL (140-440); RBC 4.03 X 10*6/uL (4.40-5.60); RDW 18.8 % (11.5-14.5); WBC 9.16 X 10*3/uL (4.50-10.00)
[2024-06-06 08:49] LABS: Blood Urea Nitrogen 3.5 mg/dL (9.0-27.0); Calcium 8.3 mg/dL (8.7-10.3); Carbon Dioxide 24.8 mmol/L (21.6-31.8); Chloride 106 mmol/L (96-109); Glucose 102 mg/dL (70-110); Magnesium 1.5 mg/dL (1.5-2.4); Potassium 3.6 mmol/L (3.5-5.5); Sodium 139 mmol/L (135-145)
[2024-06-06 11:39] LABS: Glucose,Whole Blood 112 mg/dL (70-110)
--- NOTE | 2024-06-06 15:59 | P.PN ---
Subjective Progress Note Date: 06/06/24 Patient has no complaints at this time. Pending placement. Gen: In NAD, non-toxic HEENT: normocephalic, atraumatic, hearing acuity is intant, mucous membranes moist CVS: perfusing all extremities well, no pitting edema, Respiratory: symmetric chest expansion, no accessory muscle use, GI: soft, NTTP, ND, : no suprapubic tenderness, no CVA tenderness MSK/Derm: no rashes, cyanosis Neuro: CN II-XII intact, no motor weakness, Psych: cooperative, euthymic mood, judgment and insight is intact Hospital course: 68-year-old male with stage IV lung cancer receiving immunotherapy, diabetes mellitus, GERD, hyperlipidemia, and hypertension presented with complaints of weakness and dyspnea. EKG done in the ER showed heart rate of 103 bpm, no ST segment elevation or depression seen, no T-wave inversions seen. Sinus tachycardia, right bundle branch block, and QTc 440 ms ER CXR: Right-sided hydropneumothorax, previously present, appears unchanged from comparison. Small left pleural effusion. Assessment/Plan: #Generalized weakness: Potentially secondary to anemia versus malignancy -Hemoglobin 9.5 at baseline, platelets 848, and WBC 11.2 -Fall precautions -PT/OT #Thrombocytosis , likely secondary to malignancy platelet 848 IVF hydration with d5 0.45 NS at 75 cc per hour #Hydropneumothorax: -Right-sided, previously present and appears unchanged from previous -Pulmonology consulted by ED -Continue to monitor #Stage IV lung cancer: -Continue home capmatinib hydrochloride 800 mg p.o. daily Chronic conditions: #History of right upper extremity thrombosis -Resume Eliquis 5 mg p.o. twice daily once confirmed by pharmacy #Diabetes mellitus -Sliding scale -Accu-Cheks #Hypertension -No home medications #Hyperlipidemia -No home medications F: d5 0.45 NS 75 cc/h E: Potassium N: Consistent carb diet DVT ppx: Eliquis 5 mg twice daily GI ppx: Protonix 40 mg p.o. daily Dispo: CM to work on SNF/LTC/HELENE placement pending PT consultation Objective - Vital Signs Vital signs: Vital Signs Temp 97.9 F 06/06/24 13:10 Pulse 109 H 06/06/24 13:10 Resp 17 06/06/24 13:10 BP 138/91 06/06/24 13:10 Pulse Ox 99 06/06/24 13:10 FiO2 Intake & Output 06/05/24 06/06/24 06/06/24 18:59 06:59 18:59 Intake Total 1080 Output Total 1999 Balance -920 Intake: Oral 1080 Output: Urine 1999 Other: # Voids 4 # Bowel Movements 4 - Labs CBC & Chem 7: 06/06/24 05:34 06/06/24 05:34 Labs: Abnormal Lab Results - Last 24 Hours (Table) 06/06/24 06/06/24 06/06/24 Range/Units 05:34 05:34 11:37 RBC 4.03 L (4.40-5.60) X 10*6/uL Hgb 9.3 L (13.0-17.0) g/dL Hct 31.9 L (39.6-50.0) % MCV 79.2 L (80.0-97.0) FL MCH 23.1 L (27.0-32.0) pg MCHC 29.2 L (32.0-37.0) g/dL RDW 18.8 H (11.5-14.5) % Plt Count 684 H (140-440) X 10*3/uL MPV 9.2 L (9.5-12.2) FL BUN 3.5 L (9.0-27.0) mg/dL Creatinine 0.5 L (0.6-1.5) mg/dL BUN/Creatinine Ratio 7.00 L (12.00-20.00) Ratio POC Glucose (mg/dL) 112 H (70-110) mg/dL Calcium 8.3 L (8.7-10.3) mg/dL
[2024-06-06 16:13] LABS: Glucose,Whole Blood 128 mg/dL (70-110)
[2024-06-06 20:34] LABS: Glucose,Whole Blood 115 mg/dL (70-110)
[2024-06-07 06:30] LABS: Glucose,Whole Blood 100 mg/dL (70-110)
[2024-06-07 09:28] LABS: Anisocytosis Slight; HCT 33.1 % (39.0-53.0); HGB 9.7 gm/dL (13.0-17.5); Hypochromasia Marked; MCHC 29.2 g/dL (31.0-37.0); MCV 78.9 fL (80.0-100.0); Mean Platelet Volume 6.3; Microcytosis Slight; Platelet Count 715 k/uL (150-450); Poikilocytosis Slight; RBC 4.19 m/uL (4.30-5.90); RDW 18.3 % (11.5-15.5); WBC 8.8 k/uL (3.8-10.6)
[2024-06-07 09:36] LABS: African American GFR (CKD) >90 (>60 ml/min/1.73 sqM); Anion Gap 4 mmol/L; Blood Urea Nitrogen 4 mg/dL (9-20); Calcium 8.4 mg/dL (8.4-10.2); Carbon Dioxide 27 mmol/L (22-30); Chloride 108 mmol/L (98-107); Glucose 97 mg/dL (74-99); Magnesium 1.6 mg/dL (1.6-2.3); Non-African American GFR(CKD) >90 (>60 ml/min/1.73 sqM); Sodium 139 mmol/L (137-145)
[2024-06-07 11:30] LABS: Glucose,Whole Blood 80 mg/dL (70-110)
[2024-06-07] MEDS ORDERED: POTASSIUM CHLORIDE ER 20 MEQ TAB.ER PO STA (13:14)
--- NOTE | 2024-06-07 13:37 | P.PN ---
Subjective Progress Note Date: 06/07/24 Hospital course: Patient is a very pleasant 68-year-old male with a past medical history of stage IV lung cancer currently receiving immunotherapy, history of DVT on anticoagulation with Eliquis, hypertension, hyperlipidemia, and non-insulin- dependent diabetes mellitus. He presented to the emergency department on 06/03/2024 with a chief complaint of generalized weakness and exertional dyspnea. Physical exam: Vital signs reviewed and stable. General: Nontoxic, no distress and appears stated age. Derm: Skin warm and dry, normal coloration for ethnicity. Head: Atraumatic, normocephalic and symmetric. Eyes: EOM's intact, no lid lag, and anicteric sclera Mouth: no lip lesions, mucus membranes moist Cardiovascular: regular rate and rhythm with normal S1S2, no murmur, positive posterior tibial pulses bilaterally, and cap refill < 2 seconds. Lungs: Respirations even, regular, and unlabored on room air. Lungs diminished with soft expiratory wheezes otherwise no crackles, rales, or rhonchi noted. Abdominal: soft, nontender to palpation, no guarding, no appreciable organomegaly Ext: ROM intact. No gross muscle atrophy, no edema, no contractures Neuro: Speech clear, face symmetrical and CN II-XII grossly intact with no noted focal neuro deficits Psych: Alert and oriented to person, place, time, and situation. Appropriate and pleasant affect. Assessment and Plan of Care: Generalized weakness: Likely multifactorial secondary to stage IV lung cancer, immunotherapy treatment, anemia, and underlying comorbidities. -Hemoglobin 9.3 at baseline, platelets 684, and WBC 9.16 -Fall precautions -PT/OT Thrombocytosis , likely secondary to malignancy. Platelet count and improving with IV fluid hydration with platelet count decreasing from 848 down to 684 this morning. Continue D5.45 at 75 cc/h for an additional 24 hours. Hydropneumothorax:. Right-sided, previously present and appears unchanged from previous imaging. Pulmonary evaluated stated no plans for thoracentesis. Patient remains on room air maintaining SpO2 of 96%. Stage IV lung cancer:. Continue home capmatinib hydrochloride 800 mg daily and follow-up outpatient as scheduled with oncology. History of right upper extremity thrombosis. Continue Eliquis 5 mg twice daily. [id number]-lhxwysbdv diabetes mellitus type II. Continue glycemic protocol with NovoLog sliding scale. Hyperlipidemia. Continue daily medication regimen with atorvastatin 80 mg nightly. Data and imaging reviewed. -Morning labs completed and reviewed. CBC showing hemoglobin of 9.3, platelet count 684, and WBC count of 9.16. BMP showing hypokalemia with potassium of 3.0, hyperchloremia with chloride of 108, and magnesium of 1.6. Blood glucose 97. -Vital signs reviewed. Blood pressure 126/90, heart rate 112, respiratory rate 17, temp 97.6 F, and SpO2 of 96% on room air. CODE STATUS: Full code DVT prophylaxis: Eliquis Anticipated discharge date: Likely 24 to [address]: Home with home care versus SNF Patient was seen independently by Nurse Pracitioner. This document was prepared using [employer] dictation software. Please allow for errors in medical transcription, while rare they do occur. Timur Izquierdo NP rendered care for this patient independently, reviewed the findings and plan as documented in the note above and agree with plan. I did not physically speak with or examine the patient on this date. Objective - Vital Signs Vital signs: Vital Signs Temp 97.6 F 06/07/24 07:17 Pulse 112 H 06/07/24 07:17 Resp 17 06/07/24 07:17 BP 126/90 06/07/24 07:17 Pulse Ox 96 06/07/24 07:17 FiO2 Intake & Output 06/06/24 06/07/24 06/07/24 18:59 06:59 18:59 Other: # Voids 3 3 # Bowel Movements 0 - Labs CBC & Chem 7: 06/07/24 09:18 06/07/24 09:18 Labs: Abnormal Lab Results - Last 24 Hours (Table) 06/06/24 06/06/24 06/06/24 Range/Units 05:34 05:34 11:37 RBC 4.03 L (4.40-5.60) X 10*6/uL Hgb 9.3 L (13.0-17.0) g/dL Hct 31.9 L (39.6-50.0) % MCV 79.2 L (80.0-97.0) FL MCH 23.1 L (27.0-32.0) pg MCHC 29.2 L (32.0-37.0) g/dL RDW 18.8 H (11.5-14.5) % Plt Count 684 H (140-440) X 10*3/uL MPV 9.2 L (9.5-12.2) FL BUN 3.5 L (9.0-27.0) mg/dL Creatinine 0.5 L (0.6-1.5) mg/dL BUN/Creatinine Ratio 7.00 L (12.00-20.00) Ratio POC Glucose (mg/dL) 112 H (70-110) mg/dL Calcium 8.3 L (8.7-10.3) mg/dL 06/06/24 06/06/24 Range/Units 16:12 20:32 RBC (4.40-5.60) X 10*6/uL Hgb (13.0-17.0) g/dL Hct (39.6-50.0) % MCV (80.0-97.0) FL MCH (27.0-32.0) pg MCHC (32.0-37.0) g/dL RDW (11.5-14.5) % Plt Count (140-440) X 10*3/uL MPV (9.5-12.2) FL BUN (9.0-27.0) mg/dL Creatinine (0.6-1.5) mg/dL BUN/Creatinine Ratio (12.00-20.00) Ratio POC Glucose (mg/dL) 128 H 115 H (70-110) mg/dL Calcium (8.7-10.3) mg/dL
[2024-06-07 14:23] VITALS: BP 119/89; PULSE 109; RESP 18; TEMP 98.9
[2024-06-07] MEDS: POTASSIUM CHLORIDE ER 20 MEQ TAB.ER PO STA (14:38)
[2024-06-07] MEDS: MAGNESIUM SULFATE-D5W PMX 1 GM in DEXTROSE/WATER 1 100ML.BAG IVPB SCH (14:58)
--- NOTE | 2024-06-07 15:32 | P.DS ---
Providers Date of admission: 06/03/24 22:00 Expected date of discharge: 06/07/24 Attending physician: Sharron Faye MD Primary care physician: [facility] Hospital Course: Discharge Diagnosis: Generalized weakness: Likely multifactorial secondary to stage IV lung cancer, immunotherapy treatment, anemia, and underlying comorbidities. Patient was evaluated by PT/OT recommending home with home care. Arrangements were made by case management social worker/social work for set up for [place] home care. Thrombocytosis , likely secondary to malignancy. Platelet count and improving with IV fluid hydration with platelet count decreasing from 848 down to 684 this morning. Hydropneumothorax:. Right-sided, previously present and appears unchanged from previous imaging. Pulmonary evaluated stated no plans for thoracentesis. Patient remains on room air maintaining SpO2 of 96%. Stage IV lung cancer:. Continue home capmatinib hydrochloride 800 mg daily and follow-up outpatient as scheduled with oncology. History of right upper extremity thrombosis. Continue Eliquis 5 mg twice daily. Vzr-unvgvzd-mzermgdyo diabetes mellitus type II. Continue glycemic protocol with NovoLog sliding scale. Hyperlipidemia. Continue daily medication regimen with atorvastatin 80 mg nightly. Hypokalemia. Replaced Hypomagnesemia. Replaced Hospital course: Patient is a very pleasant 68-year-old male with a past medical history of stage IV lung cancer currently receiving immunotherapy, history of DVT on anticoagulation with Eliquis, hypertension, hyperlipidemia, and lrn-exvvxhb-wozyfbaau diabetes mellitus. He presented to the emergency department on 06/03/2024 with a chief complaint of generalized weakness and exertional dyspnea. Upon arrival to our facility, patient underwent evaluation in the emergency department. Vital signs upon arrival show blood pressure 101/72, heart rate 117, respiratory rate 20, temp 97.9 F, and SpO2 100% on room air. EKG done in the ER showed sinus tachycardia with heart rate of 103 bpm, no ST segment elevation or depression seen, no T-wave inversions seen. Sinus tachycardia, right bundle branch block, and QTc 440 ms. CXR: Revealed right- sided hydropneumothorax, previously present, appears unchanged from comparison and small left pleural effusion. Labs completed and reviewed. CBC showing leukocytosis with WBC count of 11.2, microcytic anemia with hemoglobin of 9.5, and thrombocytosis with platelet count of 848. Coagulation profile normal findings. BMP showing hypokalemia with potassium of 3.4, hyperchloremia with chloride of 110 blood glucose of 107. Magnesium was slightly low at 1.7. Liver profile unremarkable. Albumin was low at 2.7. Urinalysis negative for blood or infection. Patient was admitted under services with consultation to pulmonology, cardiology, and PT/OT. Patient treated with IV fluid hydration showing significant improvement in reports of weakness. Electrolytes were replaced. Patient was evaluated by PT/OT recommending home with home care. Arrangements were made by case management social worker/social work for set up for [place] home care. Patient medically optimized for discharge and to follow-up outpatient with PCP in 1 to 2 days and oncologist at [facility] as scheduled tomorrow. Physical exam: Vital signs reviewed and stable. General: Nontoxic, no distress and appears stated age. Derm: Skin warm and dry, normal coloration for ethnicity. Head: Atraumatic, normocephalic and symmetric. Eyes: EOM's intact, no lid lag, and anicteric sclera Mouth: no lip lesions, mucus membranes moist Cardiovascular: regular rate and rhythm with normal S1S2, no murmur, positive posterior tibial pulses bilaterally, and cap refill < 2 seconds. Lungs: Respirations even, regular, and unlabored on room air. Lungs diminished with soft expiratory wheezes otherwise no crackles, rales, or rhonchi noted. Abdominal: soft, nontender to palpation, no guarding, no appreciable organomegaly Ext: ROM intact. No gross muscle atrophy, no edema, no contractures Neuro: Speech clear, face symmetrical and CN II-XII grossly intact with no noted focal neuro deficits Psych: Alert and oriented to person, place, time, and situation. Appropriate and pleasant affect. A total of 37 minutes of time were spent preparing this complex discharge summary. Pt was discharged on 06/07/2024 at 3:24 PM. Patient was seen independently by Nurse Practitioner. This document was prepared using [employer] dictation software. Please allow for errors in pattern stamper while rare they do occur. Timur Izquierdo NP rendered care for this patient independently, reviewed the findings and plan as documented in the note above. I did not physically speak with or examine the patient on this date. Patient Condition at Discharge: Stable Plan - Discharge Summary Discharge Rx Participant: Yes New Discharge Prescriptions: Continue Carboxymethylcellulose Sodium [Thera Tears] 1 drop BOTH EYES TID PRN PRN Reason: Dry Eye(S) Potassium Chloride ER [K-Dur 20] 20 meq PO DAILY Ferrous Sulfate [Iron (65 MG Elemental)] 325 mg PO W/BRKFST Lactose-Reduced Food [Ensure Plus] 1 can PO TID Apixaban [Eliquis] 5 mg PO BID Acetaminophen Tab [Tylenol] 650 mg PO TID PRN PRN Reason: Fever And/ Or Pain Pantoprazole [Protonix] 40 mg PO DAILY Atorvastatin [Lipitor] 80 mg PO HS Capmatinib Hydrochloride [Tabrecta] 400 mg PO BID Mirtazapine [Remeron] 15 mg PO HS methocarbamoL [Robaxin-750] 750 mg PO TID PRN PRN Reason: Pain HYDROcodone/APAP 7.5-325MG [Combs 7.5-325] 1 tab PO Q6HR PRN PRN Reason: Pain Discharge Medication List Carboxymethylcellulose Sodium [Thera Tears] 1 drop BOTH EYES TID PRN 01/29/23 [History] Acetaminophen Tab [Tylenol] 650 mg PO TID PRN 05/18/24 [History] Apixaban [Eliquis] 5 mg PO BID 05/18/24 [History] Capmatinib Hydrochloride [Tabrecta] 400 mg PO BID 05/18/24 [History] Ferrous Sulfate [Iron (65 MG Elemental)] 325 mg PO W/BRKFST 05/18/24 [History] Lactose-Reduced Food [Ensure Plus] 1 can PO TID 05/18/24 [History] Mirtazapine [Remeron] 15 mg PO HS 05/18/24 [History] Potassium Chloride ER [K-Dur 20] 20 meq PO DAILY 05/18/24 [History] Atorvastatin [Lipitor] 80 mg PO HS 06/04/24 [History] HYDROcodone/APAP 7.5-325MG [Combs 7.5-325] 1 tab PO Q6HR PRN 06/04/24 [History] Pantoprazole [Protonix] 40 mg PO DAILY 06/04/24 [History] methocarbamoL [Robaxin-750] 750 mg PO TID PRN 06/04/24 [History] Follow up Appointment(s)/Referral(s): Residential Home,Health [NON-STAFF] - As Needed [place] [Primary Care Provider] - 1-2 days Activity/Diet/Wound Care/Special Instructions: [facility] will come assess you in your home once you are discharged in order to assess if you qualify for increased services and hours from your home health aid. Discharge/Stand Alone Forms: Who Do I Call?, Adult Foster Long Term List, Assisted Living Facilities Discharge Disposition: HOME WITH HOME HEALTH SERVICES
[2024-06-07 16:26] LABS: Glucose,Whole Blood 96 mg/dL (70-110)
== END 2024-06-07 18:32 | disposition home health service (06) ==
LOC: EC 16:02 → 4SSUR 22:00
PROVIDERS: ADMIT Internal Medicine; ATTEND Internal Medicine
DX: C34.90 Malignant neoplasm of unspecified part of unspecified bronchus or lung (principal); J94.8 Other specified pleural conditions; D72.829 Elevated white blood cell count, unspecified; E87.6 Hypokalemia; E83.42 Hypomagnesemia; J90 Pleural effusion, not elsewhere classified; R63.0 Anorexia; E87.8 Other disorders of electrolyte and fluid balance, not elsewhere classified; I45.10 Unspecified right bundle-branch block; R00.0 Tachycardia, unspecified; I10 Essential (primary) hypertension; E78.5 Hyperlipidemia, unspecified; E11.9 Type 2 diabetes mellitus without complications; D75.839 Thrombocytosis, unspecified; D50.9 Iron deficiency anemia, unspecified; K21.9 Gastro-esophageal reflux disease without esophagitis; Z79.01 Long term (current) use of anticoagulants; Z79.620 Long term (current) use of immunosuppressive biologic; Z79.899 Other long term (current) drug therapy; Z88.8 Allergy status to other drugs, medicaments and biological substances; Z86.718 Personal history of other venous thrombosis and embolism
CPT/HCPCS: 96361 ×4; 96366; 96365; 99285; 36415; 93005; 97116; 97161; 97166; 83880; 80053; 80048 ×2; 83735 ×3; 85025 ×2; 85027; 85610; 85730; 81001; 71046; 76604; G0378 ×5; J3475; 96367

== ENCOUNTER 2024-06-30 20:08 | Inpatient (IN) | payer MEDICARE ==
[2024-06-30] MEDS: ONDANSETRON 4 MG/2 ML VIAL IVP STA (20:15)
[2024-06-30] MEDS: ETOMIDATE 2 MG/ML 10 ML VIAL IVP STA (20:21)
[2024-06-30] MEDS: ROCURONIUM 10 MG/ML (5 ML VIAL) IV STA (20:22)
[2024-06-30 20:35] LABS: Glucose,Whole Blood 109 mg/dL (70-110)
[2024-06-30 20:38] LABS: Anisocytosis Slight; Basophils % (A) 0 %; Eosinophils # (A) 0.2 k/uL (0-0.7); Eosinophils % (A) 2 %; HCT 33.6 % (39.0-53.0); HGB 9.9 gm/dL (13.0-17.5); Hypochromasia Marked; Lymphocytes # (A) 1.4 k/uL (1.0-4.8); Lymphocytes % (A) 14 %; MCH 22.4 pg (25.0-35.0); MCHC 29.6 g/dL (31.0-37.0); MCV 75.7 fL (80.0-100.0); Mean Platelet Volume 6.8; Microcytosis Slight; Monocytes % (A) 10 %; Neutrophils % (A) 72 %; Platelet Count 777 k/uL (150-450); Poikilocytosis Slight; RBC 4.43 m/uL (4.30-5.90); WBC 9.7 k/uL (3.8-10.6)
[2024-06-30 20:39] LABS: Appearance,Urine Clear (Clear); Bilirubin,Urine Negative (Negative); Blood,Urine Negative (Negative); Color,Urine Yellow; Glucose,Urine (UA) Negative (Negative); Ketones,Urine Negative (Negative); Leukocyte Esterase,Urine Negative (Negative); Nitrite,Urine Negative (Negative); Protein,Urine Trace (Negative); Specific Gravity,Urine 1.026 (1.001-1.035); Urobilinogen,Urine <2.0 mg/dL (<2.0)
--- NOTE | 2024-06-30 20:46 | XR ---
EXAMINATION TYPE: XR chest 1V portable DATE OF EXAM: 06/30/2024 8:39 PM CLINICAL INDICATION:Male, 68 years old with history of altered mental status; [facility] COMPARISON: Chest radiograph 06/03/2024 TECHNIQUE: XR chest 1V portable Frontal view of the chest. FINDINGS: Lungs/Pleura: There is interval worsening of a large right pleural effusion when compared to prior st udy from May. The left thorax is clear. Pulmonary vascularity: Unremarkable. Heart/mediastinum: Cardiomediastinal silhouette is unremarkable. Musculoskeletal: No acute osseous pathology. Other findings: Enteric tube is seen coursing below the level diaphragm. Endotracheal tube is seen ap proximately 1.8 cm from the rosalia. IMPRESSION: 1. Endotracheal tube approximately 1.8 cm from the rosalia. 2. Interval progression of a large right pleural effusion. 3. Enteric tube in appropriate position. [facility], , 06/30/2024 8:44 PM
[2024-06-30 20:51] LABS: INR 1.1 (<1.2); Partial Thromboplastin Time 25.1 sec (22.0-30.0); Prothrombin Time 11.8 sec (10.0-12.5)
[2024-06-30 20:52] LABS: ALT 16 U/L (4-49); AST 28 U/L (17-59); African American GFR (CKD) >90 (>60 ml/min/1.73 sqM); Albumin 2.9 g/dL (3.5-5.0); Alkaline Phosphatase 130 U/L (38-126); Anion Gap 10 mmol/L; Blood Urea Nitrogen 7 mg/dL (9-20); Calcium 8.7 mg/dL (8.4-10.2); Carbon Dioxide 20 mmol/L (22-30); Chloride 102 mmol/L (98-107); Creatine Kinase 30 U/L (55-170); Glucose 121 mg/dL (74-99); Non-African American GFR(CKD) >90 (>60 ml/min/1.73 sqM); Potassium 4.2 mmol/L (3.5-5.1); Sodium 132 mmol/L (137-145); Total Bilirubin 0.6 mg/dL (0.2-1.3); Total Protein 7.3 g/dL (6.3-8.2)
[2024-06-30 20:53] LABS: Amphetamine Screen,Urine Not Detected (NotDetected); Barbiturate Screen,Urine Not Detected (NotDetected); Benzodiazepines Screen,Urine Not Detected (NotDetected); Cocaine Screen,Urine Detected (NotDetected); Methadone Screen, Urine Not Detected (NotDetected); Opiate Screen,Urine Detected (NotDetected); Oxycodone Screen, Urine Detected (NotDetected); Phencyclidine Screen,Urine Not Detected (NotDetected); Tricyclic Antidepressant,Urine Not Detected (NotDetected); Urn Cannabinoid Scrn Not Detected (NotDetected)
[2024-06-30] MEDS: SODIUM CHLORIDE 0.9% 1,000 ML IV STA ×2 (20:58→21:48)
--- NOTE | 2024-06-30 21:03 | CT ---
EXAMINATION TYPE: CODE STROKE: CT brain wo contr CT DLP: 1100 mGycm, Automated exposure control for dose reduction was used. DATE OF EXAM: 06/30/2024 8:54 PM COMPARISON: None. CLINICAL INDICATION:Male, 68 years old with history of Neuro deficit, acute, stroke suspected, NEURO DEFICIT, ACUTE, DELAY- DIFFICULTY VENTING PATIENT TECHNIQUE: Brain: Axial CT images of the brain were obtained with coronal and sagittal reformats created and rev iewed. Contrast used: None. Oral contrast used: None. FINDINGS: Brain: Extra-axial spaces: No abnormal extra-axial fluid collections. Ventricular system: Within normal limits Cerebral parenchyma: No acute intraparenchymal hemorrhage or mass effect. The miranda-white junction is well differentiated. Scattered hypoattenuating areas are seen within the white matter. Cerebellum: Cerebellar tonsils are slightly low-lying with pointed inferior portion of the tonsil Mass effect: No evidence of midline shift. Intracranial vasculature: Atherosclerotic calcifications of the intracranial vessels. Soft tissues: Normal. Calvarium/osseous structures: No depressed skull fracture. Paranasal sinuses and mastoid air cells: Mild scattered paranasal sinus disease. Visualized orbits: Orbital contents are intact. IMPRESSION: 1. No acute intracranial process. 2. Nonspecific white matter changes, likely secondary to chronic small vessel ischemic disease. [facility], , 06/30/2024 9:00 PM
--- NOTE | 2024-06-30 21:07 | XR ---
EXAMINATION TYPE: XR chest 1V confirm line plcmt DATE OF EXAM: 06/30/2024 9:00 PM CLINICAL INDICATION:Male, 68 years old with history of TUBE PLACEMENT; [facility] COMPARISON: Chest radiograph same day TECHNIQUE: XR chest 1V confirm line plcmt Frontal view of the chest. FINDINGS: Lungs/Pleura: Stable large right pleural effusion. Pulmonary vascularity: Unremarkable. Heart/mediastinum: Cardiomediastinal silhouette is unremarkable. Musculoskeletal: No acute osseous pathology. Other findings: Endotracheal tube now approximately 4 cm from the rosalia. Enteric tube seen terminati ng within the stomach. IMPRESSION: 1. Appropriately positioned support tubes. 2. Large right pleural effusion. [facility], , 06/30/2024 9:04 PM
--- NOTE | 2024-06-30 21:22 | CT ---
EXAMINATION TYPE: CT angio head neck CT DLP: 436.2 mGycm, Automated exposure control for dose reduction was used. DATE OF EXAM: 06/30/2024 9:07 PM COMPARISON: CT head same day. CLINICAL INDICATION:Male, 68 years old with history of Neuro deficit, acute, stroke suspected; PHH, N EURO DEFICIT, ACUTE, DELAY- DIFFICULTY VENTING PATIENT TECHNIQUE: Axially acquired helical CT angiogram of the head and neck was obtained with contrast. Axi al images are supplemented with 3D reconstructions which [facility] NASCET criteria used. Contrast used:65ML mL of Isovue 370 with IV Contrast, Oral contrast used: None. FINDINGS: CTA HEAD: The visualized portions of the internal carotid arteries, middle cerebral arteries, anterior cerebral arteries, and posterior cerebral arteries are patent. The basilar and vertebral arteries are patent. CTA NECK: Right Carotid System: The common carotid artery is patent. There is a fibrofatty thrombus within the right internal carotid artery near its origin creating approximately 75% stenosis. The remaining portions of the internal c arotid artery demonstrate normal size without significant narrowing. Left Carotid System: The common carotid artery is patent. There is thrombus within the left internal carotid artery creati ng a 90% occlusion. Vertebral arteries are patent without evidence hemodynamically significant stenosis. There is a three-vessel aortic arch. The origins of the great vessels are patent. Upper thorax: Partially visualized large loculated right pleural effusion. Gas seen within the left sublingual space, likely from intubation. IMPRESSION: 1. No significant intracranial vascular abnormality. 2. Fibrofatty thrombus within the bilateral proximal internal carotid arteries creating 75% stenosis on the right and 90% stenosis on the left. 3. Partially visualized large loculated left pleural effusion. [facility], , 06/30/2024 9:20 PM
--- NOTE | 2024-06-30 21:26 | ED ---
General Adult HPI - General Chief complaint: Neuro Symptoms/Deficit Stated complaint: Stroke Time Seen by Provider: 06/30/24 20:27 Source: patient, EMS, RN notes reviewed, old records reviewed Mode of arrival: EMS Limitations: physical limitation - History of Present Illness Initial comments: Is a 68-year-old male who presents emergency department for altered mental status. Possible strokelike symptoms. Apparently patient was picked up by his cousin for doctor's appointment earlier today around 2. At that time he was slurring his speech. Went to the doctor's appointment and they were returning at approximately 6:30 PM. At that time, patient became more incoherent and was struggling to move the left side of his body. EMS was called over concern for stroke and patient became unresponsive and was not responding to staff or EMS. Did have left-sided weakness at that time. EMS did call ahead, and he did wake up once but was incoherent and mumbling and then he stopped talking again.Patient apparently had forced gaze to the left for EMS for period of time as well Patient has a history of lung cancer, diabetes, hypertension, hy perlipidemia, right upper extremity DVT currently on blood thinners. Presents for further evaluation at this time. Cannot provide any history. - Related Data Home Medications Medication Instructions Recorded Confirmed Capmatinib Hydrochloride [Tabrecta] 400 mg PO BID@0700,1600 05/18/24 06/30/24 Ferrous Sulfate [Iron (65 MG 325 mg PO DAILY@0700 05/18/24 06/30/24 Elemental)] Mirtazapine [Remeron] 15 mg PO HS 05/18/24 06/30/24 Atorvastatin [Lipitor] 80 mg PO HS@1900 06/04/24 06/30/24 Pantoprazole [Protonix] 40 mg PO BID@0700,1600 06/04/24 06/30/24 methocarbamoL [Robaxin-750] 750 mg PO TID 06/04/24 06/30/24 Acetaminophen [Tylenol 8 Hour] 650 mg PO Q6H PRN 06/30/24 06/30/24 Enoxaparin [Lovenox] 60 mg SQ Q12HR@0700,1900 06/30/24 06/30/24 Folic Acid 1 mg PO DAILY@0700 06/30/24 06/30/24 HYDROcodone/APAP 10-325MG [[place] 1 tab PO Q6H PRN 06/30/24 06/30/24 10-325] Healthshake 1 dose PO TID-W/MEALS 06/30/24 06/30/24 Lidocaine 5% Patch [Lidoderm] 1 patch TRANSDERM DAILY@0700 06/30/24 06/30/24 Magnesium Oxide [Mag-Ox] 400 mg PO BID@0700,1600 06/30/24 06/30/24 Sennosides [Senokot] 8.6 mg PO BID 06/30/24 06/30/24 amLODIPine [Norvasc] 10 mg PO DAILY@0700 06/30/24 06/30/24 polyethylene glycoL 3350 [Miralax] 17 gm PO Q72H PRN 06/30/24 06/30/24 Allergies Allergy/AdvReac Type Severity Reaction Status Date / Time benazepril AdvReac Angioedema Verified 06/30/24 21:17 simvastatin [From Zocor] AdvReac abnormal Verified 06/30/24 21:17 liver enzymes Review of Systems ROS Statement: Those systems with pertinent positive or pertinent negative responses have been documented in the HPI. ROS Other: All systems not noted in ROS Statement are negative. Past Medical History Past Medical History: Cancer, Diabetes Mellitus, GERD/Reflux, Hyperlipidemia, Hypertension Additional Past Medical History / Comment(s): lung cancer History of Any Multi-Drug Resistant Organisms: None Reported Past Surgical History: No Surgical Hx Reported Additional Past Surgical History / Comment(s): recent chest tube Past Anesthesia/Blood Transfusion Reactions: No Reported Reaction Additional Past Anesthesia/Blood Transfusion Reaction / Comment(s): Has never had General Anesthesia. Past Psychological History: No Psychological Hx Reported Smoking Status: Never smoker Past Alcohol Use History: Occasional Past Drug Use History: Marijuana - Past Family History Mother Family Medical History: Cancer General Exam - General Exam Comments Initial Comments: General: Unresponsive HEAD: Normal with no signs of head trauma. EYES: Pupils are 3 mm and equal bilaterally. Patient does have spontaneous extraocular eye movements. ENT: Hearing grossly intact, normal oropharynx. RESPIRATORY: Clear breath sounds bilaterally. No wheezes, rales, or rhonchi. C/V: Regular rate and rhythm. S1 and S2 auscultated, no edema, peripheral pulses 2+ and intact throughout ABD: Abd is soft, nontender, nondistended EXT: Normal range of motion, no obvious deformity SKIN: No rashes or lesions observed on exposed skin. NEURO: Not alert or oriented. Difficult to assess for deficits at this time. Patient does have some spontaneous movement of the right lower extremity as well as somewhat of the left lower extremity. No obvious movement of the upper extremities. NIH is difficult to evaluate for at this time. Last known well appears to have been 1830. Patient apparently may have had some slurred speech earlier in the day at approximately 1400. Limitations: physical limitation Course Vital Signs 06/30/24 06/30/24 06/30/24 20:13 20:20 20:23 Temperature Pulse Rate 105 H 115 H Respiratory 18 18 Rate Blood Pressure 135/98 126/93 O2 Sat by Pulse 99 100 Oximetry Fraction of 100 Inspired Oxygen (FIO2) 06/30/24 06/30/24 06/30/24 20:28 20:31 20:45 Temperature 98.5 F Pulse Rate 92 86 Respiratory 20 20 Rate Blood Pressure 146/92 146/92 O2 Sat by Pulse 100 100 Oximetry Fraction of 100 Inspired Oxygen (FIO2) 06/30/24 06/30/24 06/30/24 21:00 21:15 21:21 Temperature 98.5 F Pulse Rate 93 105 H 102 H Respiratory 20 20 20 Rate Blood Pressure 136/92 135/106 135/93 O2 Sat by Pulse 100 100 100 Oximetry Fraction of Inspired Oxygen (FIO2) 06/30/24 06/30/24 06/30/24 21:41 21:45 22:53 Temperature Pulse Rate 113 H 115 H Respiratory 20 20 Rate Blood Pressure 106/86 99/88 O2 Sat by Pulse 100 100 Oximetry Fraction of 40 Inspired Oxygen (FIO2) Procedures - Intubation Sedative: Etomidate Mg Given: 30 Paralytic: Rocuronium Mg Given: 50 Laryngoscope: other (glidescope) ET Tube Size: 7.5 Tube Secured Depth (cm): 25 Tube Secured Location: lips Tube Placement Confirmation: visualized tube passing through cords, equal breath sounds bilaterally, no breath sounds over epigastrium, confirmation by capnometry Patient Tolerated Procedure: well Intubation Complications: none Medical Decision Making - Medical Decision Making Was pt. sent in by a medical professional or institution (, PA, SCIENTIFIC PROCESS OPERATOR, urgent care, hospital, or [facility]...) When possible be specific @ -Transferred from [facility] Did you speak to anyone other than the patient for history (EMS, parent, family, police, friend...)? What history was obtained from this source @ -Spoke with EMS who provided the patient's history. Also spoke with his cousin after she arrived, Conchita who confirmed that patient was having some slurred speech earlier in the day around 2 PM and then around 6:30 PM is when the re maining symptoms began. Did you review nursing and triage notes (agree or disagree)? Why? @ -I reviewed and agree with nursing and triage notes Were old charts reviewed (outside hosp., previous admission, EMS record, old EKG, old radiological studies, urgent care reports/EKG's, [facility] records)? Report findings @ -Reviewed medical charts from his nursing facility, [facility] Differential Diagnosis (chest pain, altered mental status, abdominal pain women, abdominal pain men, vaginal bleeding, weakness, fever, dyspnea, syncope, headache, dizziness, GI bleed, back pain, seizure, CVA, palpatations, mental health, musculoskeletal)? @ -Differential CVA Ischemic stroke, hemorrhagic stroke, brain tumor, atypical migraine, Wernicke's encephalopathy, seizure, multiple sclerosis, meningitis, encephalitis, hypoglycemia, Guillain-[place], electrolytes disturbance, myasthenia gravis.... This is not meant to be an all-inclusive list Differential Altered Mental Status: Hypoglycemia, DKA, hypercapnia, ETOH, overdose, CO poisoning, trauma, myxedema coma, HTN encephalopathy, infection, encephalitis, psychosis, intercranial hemorrhage, hepatic encephalopathy, meningitis, CVA, this is not meant to be an all-inclusive list EKG interpreted by me (3pts min.). @ -As above X-rays interpreted by me (1pt min.). @ -Initial chest x-ray does show ET tube in place to deeply. Was pulled back and second chest x-ray shows satisfactory placement. On both, it does show large right pleural effusion which is chronic for the patient. CT interpreted by me (1pt min.). @ -CT brain reveals no obvious acute intracranial process. CT angiogram of the head and the neck reveals no obvious acute intracranial process. No large vessel occlusion. Patient has a left-sided pleural effusion which is chronic. Patient does have fibrofatty thrombus within the bilateral proximal internal carotid arteries creating bilateral stenosis. U/S interpreted by me (1pt. min.). @ -None done What testing was considered but not performed or refused? (CT, X-rays, U/S, labs)? Why? @ -None What meds were considered but not given or refused? Why? @ -Consider tenecteplase however after discussion with stroke specialist Dr. Spaulding as the patient is on blood thinners, Lovenox, it is contraindicated. Patient will not receive tenecteplase. Did you discuss the management of the patient with other professionals (professionals i.e. DrShade, PA, SCIENTIFIC PROCESS OPERATOR, lab, RT, psych nurse, social organization professor, zigzag tunnel elastic operator, teacher, sales officer, bilingual patient support caseworker)? Give summary @ -Discussed with stroke specialist, Dr. Spaulding patient agreed with plan for workup. Agree that patient is not a tenecteplase candidate as risks outweigh benefits secondary to patient being on Lovenox, blood thinner which is a contraindication. Discussed the imaging results, and recommended patient be admitted with medical management on aspirin and Plavix. Cussed with neurologist, Dr. Mendoza who was in agreement with plan and we both agreed to initiate IV Keppra twice daily as well as ordering an EEG. Discussed with ICU attending, Dr. Mendoza who did accept the patient to the ICU as the patient is intubated. Discussed with admitting provider, Dr. Faye who accepted the admission. Was smoking cessation discussed for >3mins.? @ -No Was critical care preformed (if so, how long)? @ -Yes, 46 minutes. Were there social determinants of health that impacted care today? How? (Homelessness, low income, unemployed, alcoholism, drug addiction, transportation, low edu. Level, literacy, decrease access to med. care, snf, rehab)? @ -No Was there de-escalation of care discussed even if they declined (Discuss DNR or withdrawal of care, Hospice)? DNR status @ -Discussed CODE STATUS with family, Conchita as well as Zen who both conveyed patient is full code. Confirmed by patient's who I spoke with over the phone, Anjana. What co-morbidities impacted this encounter? (DM, HTN, Smoking, COPD, CAD, Cancer, CVA, ARF, Chemo, Hep., AIDS, mental health diagnosis, sleep apnea, morbid obesity)? @ -Right upper extremity DVT on Lovenox, history of cancer and chronic right hydropneumothorax currently with a large pleural effusion. Was patient admitted / discharged? Hospital course, mention meds given and route, prescriptions, significant lab abnormalities, going to OR and other pertinent info. @ -Based on the patient's presentation and physical exam, presents emergency department complaining of altered mental status and strokelike symptoms. Upon arrival, patient is unable provide any history and is altered. Patient was immediately intubated by myself. Intubation successful. Please see additional note for further details. Patient placed on a propofol drip, as well as given IV maintenance fluids. Patient was activated as a code stroke. Patient is on Lovenox and therefore not deemed to be a tenecteplase candidate as risks far outweigh the benefits. I discussed this with Dr. Collado who was in agreement with this plan as well as in agreement that patient is not a tenecteplase candidate. Vital signs within acceptable limits. Initial chest x-ray shows the known right sided chronic pleural effusion/hydropneumothorax. Repeat x-ray does show improved placement of the ET tube. CTs revealed no obvious acute intracranial process or large vessel occlusion. Patient does have some fibrofatty plaques in the bilateral internal carotids in the neck. Laboratory studies returned relatively unremarkable. Discussed with stroke specialist, Dr. Spaulding patient agreed with plan for workup. Agree that patient is not a tenecteplase candidate as risks outweigh benefits secondary to patient being on Lovenox, blood thinner which is a contraindication. Discussed the imaging results, and recommended patient be admitted with medical management on aspirin and Plavix. Cussed with neurologist, Dr. Mendoza who was in agreement with plan and we both agreed to initiate IV Keppra twice daily as well as ordering an EEG. Discussed with ICU attending, Dr. Mendoza who did accept the patient to the ICU as the patient is intubated. Discussed with admitting provider, Dr. Faye who accepted the admission. Updated family, both his cousins came in spike as well as his Anjana. They were all in agreement with this plan. Patient admitted to the ICU. Undiagnosed new problem with uncertain prognosis? @ -No Drug Therapy requiring intensive monitoring for toxicity (Heparin, Nitro, Insulin, Cardizem)? @ -No Were any procedures done? @ -Intubation Diagnosis/symptom? @ -CVA, intubation for airway protection, altered mental status Acute, or Chronic, or Acute on Chronic? @ -Acute Uncomplicated (without systemic symptoms) or Complicated (systemic symptoms)? @ -Complicated Side effects of treatment? @ -No Exacerbation, Progression, or Severe Exacerbation? @ -No Poses a threat to life or bodily function? How? (Chest pain, USA, SC, pneumonia, PE, COPD, DKA, ARF, appy, cholecystitis, CVA, Diverticulitis, Homicidal, Suicidal, threat to staff... and all critical care pts) @ -Yes - Lab Data Result diagrams: 06/30/24 20:27 06/30/24 20:27 Lab Results 06/30/24 06/30/24 06/30/24 Range/Units 20:27 20:27 20:27 WBC 9.7 (3.8-10.6) k/uL RBC 4.43 (4.30-5.90) m/uL Hgb 9.9 L (13.0-17.5) gm/dL Hct 33.6 L (39.0-53.0) % MCV 75.7 L (80.0-100.0) fL MCH 22.4 L (25.0-35.0) pg MCHC 29.6 L (31.0-37.0) g/dL RDW 17.0 H (11.5-15.5) % Plt Count 777 H (150-450) k/uL MPV 6.8 Neutrophils % 72 % Lymphocytes % 14 % Monocytes % 10 % Eosinophils % 2 % Basophils % 0 % Neutrophils # 7.0 (1.3-7.7) k/uL Lymphocytes # 1.4 (1.0-4.8) k/uL Monocytes # 1.0 (0-1.0) k/uL Eosinophils # 0.2 (0-0.7) k/uL Basophils # 0.0 (0-0.2) k/uL Hypochromasia Marked Poikilocytosis Slight Anisocytosis Slight Microcytosis Slight PT 11.8 (10.0-12.5) sec INR 1.1 (<1.2) APTT 25.1 (22.0-30.0) sec Sample Site ABG pH (7.35-7.45) ABG pCO2 (35-45) mmHg ABG pO2 (83-108) mmHg ABG HCO3 (21-25) mmol/L ABG Total CO2 (19-24) mmol/L ABG O2 Saturation (94-97) % ABG Base Excess mmol/L [place] Test Hemoglobin (13.0-17.5) gm/dL FiO2 % Sodium 132 L (137-145) mmol/L Potassium 4.2 (3.5-5.1) mmol/L Chloride 102 (98-107) mmol/L Carbon Dioxide 20 L (22-30) mmol/L Anion Gap 10 mmol/L BUN 7 L (9-20) mg/dL Creatinine 0.63 L (0.66-1.25) mg/dL Est GFR (CKD-EPI)AfAm >90 (>60 ml/min/1.73 sqM) Est GFR (CKD-EPI)NonAf >90 (>60 ml/min/1.73 sqM) Glucose 121 H (74-99) mg/dL POC Glucose (mg/dL) (70-110) mg/dL POC Glu Cloth Bleaching Range Operator Chief ID Calcium 8.7 (8.4-10.2) mg/dL Total Bilirubin 0.6 (0.2-1.3) mg/dL AST 28 (17-59) U/L ALT 16 (4-49) U/L Alkaline Phosphatase 130 H (38-126) U/L Creatine Kinase 30 L (55-170) U/L Troponin I (0.000-0.034) ng/mL Total Protein 7.3 (6.3-8.2) g/dL Albumin 2.9 L (3.5-5.0) g/dL Urine Color Urine Appearance (Clear) Urine pH (5.0-8.0) Ur Specific [place] (1.001-1.035) Urine Protein (Negative) Urine Glucose (UA) (Negative) Urine Ketones (Negative) Urine Blood (Negative) Urine Nitrite (Negative) Urine Bilirubin (Negative) Urine Urobilinogen (<2.0) mg/dL Ur Leukocyte Esterase (Negative) Urine Opiates Screen (NotDetected) Ur Oxycodone Screen (NotDetected) Urine Methadone Screen (NotDetected) Ur Barbiturates Screen (NotDetected) U Tricyclic Antidepress (NotDetected) Ur Phencyclidine Scrn (NotDetected) Ur Amphetamines Screen (NotDetected) U Methamphetamines Scrn (NotDetected) U Benzodiazepines Scrn (NotDetected) Urine Cocaine Screen (NotDetected) U Marijuana (THC) Screen (NotDetected) Influenza Type A (PCR) (Not Detectd) Influenza Type B (PCR) (Not Detectd) RSV (PCR) (Not Detectd) SARS-CoV-2 (PCR) (Not Detectd) 06/30/24 06/30/24 06/30/24 Range/Units 20:27 20:31 20:34 WBC (3.8-10.6) k/uL RBC (4.30-5.90) m/uL Hgb (13.0-17.5) gm/dL Hct (39.0-53.0) % MCV (80.0-100.0) fL MCH (25.0-35.0) pg MCHC (31.0-37.0) g/dL RDW (11.5-15.5) % Plt Count (150-450) k/uL MPV Neutrophils % % Lymphocytes % % Monocytes % % Eosinophils % % Basophils % % Neutrophils # (1.3-7.7) k/uL Lymphocytes # (1.0-4.8) k/uL Monocytes # (0-1.0) k/uL Eosinophils # (0-0.7) k/uL Basophils # (0-0.2) k/uL Hypochromasia Poikilocytosis Anisocytosis Microcytosis PT (10.0-12.5) sec INR (<1.2) APTT (22.0-30.0) sec Sample Site ABG pH (7.35-7.45) ABG pCO2 (35-45) mmHg ABG pO2 (83-108) mmHg ABG HCO3 (21-25) mmol/L ABG Total CO2 (19-24) mmol/L ABG O2 Saturation (94-97) % ABG Base Excess mmol/L [place]es Test Hemoglobin (13.0-17.5) gm/dL FiO2 % Sodium (137-145) mmol/L Potassium (3.5-5.1) mmol/L Chloride (98-107) mmol/L Carbon Dioxide (22-30) mmol/L Anion Gap mmol/L BUN (9-20) mg/dL Creatinine (0.66-1.25) mg/dL Est GFR (CKD-EPI)AfAm (>60 ml/min/1.73 sqM) Est GFR (CKD-EPI)NonAf (>60 ml/min/1.73 sqM) Glucose (74-99) mg/dL POC Glucose (mg/dL) 109 (70-110) mg/dL POC Glu Cloth Bleaching Range Operator Chief AYDEE Nicholson Calcium (8.4-10.2) mg/dL Total Bilirubin (0.2-1.3) mg/dL AST (17-59) U/L ALT (4-49) U/L Alkaline Phosphatase (38-126) U/L Creatine Kinase (55-170) U/L Troponin I <0.012 (0.000-0.034) ng/mL Total Protein (6.3-8.2) g/dL Albumin (3.5-5.0) g/dL Urine Color Yellow Urine Appearance Clear (Clear) Urine pH 6.0 (5.0-8.0) Ur Specific [place] 1.026 (1.001-1.035) Urine Protein Trace H (Negative) Urine Glucose (UA) Negative (Negative) Urine Ketones Negative (Negative) Urine Blood Negative (Negative) Urine Nitrite Negative (Negative) Urine Bilirubin Negative (Negative) Urine Urobilinogen <2.0 (<2.0) mg/dL Ur Leukocyte Esterase Negative (Negative) Urine Opiates Screen Detected H (NotDetected) Ur Oxycodone Screen Detected H (NotDetected) Urine Methadone Screen Not Detected (NotDetected) Ur Barbiturates Screen Not Detected (NotDetected) U Tricyclic Antidepress Not Detected (NotDetected) Ur Phencyclidine Scrn Not Detected (NotDetected) Ur Amphetamines Screen Not Detected (NotDetected) U Methamphetamines Scrn Not Detected (NotDetected) U Benzodiazepines Scrn Not Detected (NotDetected) Urine Cocaine Screen Detected H (NotDetected) U Marijuana (THC) Screen Not Detected (NotDetected) Influenza Type A (PCR) (Not Detectd) Influenza Type B (PCR) (Not Detectd) RSV (PCR) (Not Detectd) SARS-CoV-2 (PCR) (Not Detectd) 06/30/24 06/30/24 Range/Units 21:15 21:23 WBC (3.8-10.6) k/uL RBC (4.30-5.90) m/uL Hgb (13.0-17.5) gm/dL Hct (39.0-53.0) % MCV (80.0-100.0) fL MCH (25.0-35.0) pg MCHC (31.0-37.0) g/dL RDW (11.5-15.5) % Plt Count (150-450) k/uL MPV Neutrophils % % Lymphocytes % % Monocytes % % Eosinophils % % Basophils % % Neutrophils # (1.3-7.7) k/uL Lymphocytes # (1.0-4.8) k/uL Monocytes # (0-1.0) k/uL Eosinophils # (0-0.7) k/uL Basophils # (0-0.2) k/uL Hypochromasia Poikilocytosis Anisocytosis Microcytosis PT (10.0-12.5) sec INR (<1.2) APTT (22.0-30.0) sec Sample Site R radial ABG pH 7.49 H (7.35-7.45) ABG pCO2 29 L (35-45) mmHg ABG pO2 >420 H (83-108) mmHg ABG HCO3 22 (21-25) mmol/L ABG Total CO2 23 (19-24) mmol/L ABG O2 Saturation >100.0 H (94-97) % ABG Base Excess -1.1 mmol/L [place]es Test Yes Hemoglobin 9.4 L (13.0-17.5) gm/dL FiO2 100 % Sodium (137-145) mmol/L Potassium (3.5-5.1) mmol/L Chloride (98-107) mmol/L Carbon Dioxide (22-30) mmol/L Anion Gap mmol/L BUN (9-20) mg/dL Creatinine (0.66-1.25) mg/dL Est GFR (CKD-EPI)AfAm (>60 ml/min/1.73 sqM) Est GFR (CKD-EPI)NonAf (>60 ml/min/1.73 sqM) Glucose (74-99) mg/dL POC Glucose (mg/dL) (70-110) mg/dL POC Glu Cloth Bleaching Range Operator Chief ID Calcium (8.4-10.2) mg/dL Total Bilirubin (0.2-1.3) mg/dL AST (17-59) U/L ALT (4-49) U/L Alkaline Phosphatase (38-126) U/L Creatine Kinase (55-170) U/L Troponin I (0.000-0.034) ng/mL Total Protein (6.3-8.2) g/dL Albumin (3.5-5.0) g/dL Urine Color Urine Appearance (Clear) Urine pH (5.0-8.0) Ur Specific [place] (1.001-1.035) Urine Protein (Negative) Urine Glucose (UA) (Negative) Urine Ketones (Negative) Urine Blood (Negative) Urine Nitrite (Negative) Urine Bilirubin (Negative) Urine Urobilinogen (<2.0) mg/dL Ur Leukocyte Esterase (Negative) Urine Opiates Screen (NotDetected) Ur Oxycodone Screen (NotDetected) Urine Methadone Screen (NotDetected) Ur Barbiturates Screen (NotDetected) U Tricyclic Antidepress (NotDetected) Ur Phencyclidine Scrn (NotDetected) Ur Amphetamines Screen (NotDetected) U Methamphetamines Scrn (NotDetected) U Benzodiazepines Scrn (NotDetected) Urine Cocaine Screen (NotDetected) U Marijuana (THC) Screen (NotDetected) Influenza Type A (PCR) Not Detected (Not Detectd) Influenza Type B (PCR) Not Detected (Not Detectd) RSV (PCR) Not Detected (Not Detectd) SARS-CoV-2 (PCR) Not Detected (Not Detectd) - EKG Data -: EKG Interpreted by Me EKG Comments: 12-lead Electrocardiogram Interpretation Note EKG was reviewed and interpreted by myself. 12-lead ECG performed at 2031 is interpreted by me as revealing normal sinus rhythm at a rate of 88 beats per minute. Bradley is normal. ME interval is 140 ms, QRS duration is 153 ms, QTc is 465 ms.. There were no ST or T wave abnormalities to suggest myocardial ischemia or injury. R wave progression across the precordium was satisfactory. By my interpretation this EKG is non-diagnostic for acute ischemia. Critical Care Time Critical Care Time: Yes Total Critical Care Time: 46 Disposition Clinical Impression: AMS (altered mental status), Cerebrovascular accident (CVA), Airway intubation performed without difficulty Disposition: ADMITTED IP TO THIS HOSP Condition: Serious Time of Disposition: 22:00
[2024-06-30 21:35] LABS: Allen Test Performed? Yes
[2024-06-30 21:36] LABS: ABG Base Excess -1.1 mmol/L; ABG HCO3 22 mmol/L (21-25); ABG Oxygen Saturation >100.0 % (94-97); ABG PCO2 29 mmHg (35-45); ABG PH 7.49 (7.35-7.45); ABG TCO2 23 mmol/L (19-24)
[2024-06-30 21:38] LABS: ABG PO2 >420 mmHg (83-108)
[2024-06-30] MEDS: CLOPIDOGREL 75 MG TAB PO STA (22:18)
[2024-06-30] MEDS: ASPIRIN 300 MG SUPP RECTAL STA (22:25)
[2024-06-30] MEDS: levETIRAcetam IV 500 MG/5 ML VIAL IVP SCH (22:31)
[2024-06-30 23:55] LABS: Acetaminophen <10.0 ug/mL; Alcohol <10 mg/dL; Salicylate <1.0 mg/dL
--- NOTE | 2024-07-01 00:01 | P.HPIM ---
History of Present Illness H&P Date: 06/30/24 Chief Complaint: Altered mental status Patient is a 68 year old male with stage IV lung cancer on immunotherapy, diabetes mellitus, hypertension, hyperlipidemia, recent upper extremity DVT on blood thinner at home, GERD presented to the ED with left sided weakness and altered mental status. HPI obtained from ED staff and documentation. Patient is sedated, intubated and mechanically ventilated therefore unable to provide any history and no family with him at this time. Patient resides at [facility]. Patient was at his doctor's appointment earlier today around 2 pm when he started experiencing slurring of speech. He was accompanied by his cousin at the time. Upon returning from the doctor's office, family reported that patient would put his head out of the car window and he also started experiencing weakness of the left side of the body. EMS was called at this point. Patient then became unresponsive. Upon gaining consciousness, he was still incoherent and mumbling. EMS reported the patient having a forced gaze to the left. On arrival at the ED, he was alert but was unresponsive. Moreover, the patient was recently admitted at our facility a month ago for gene ralized weakness and was discharged home with [facility]. The patient has a recent history of upper extremity DVT and is currently on Lovenox at home. The patient follows up with oncologist at [facility] for stage IV lung cancer currently on immunotherapy. ED documentation reviewed. Patient didn't receive Tenecteplase as he was on Lovenox at home for recent upper extremity DVT but received Clopidogrel 75 mg PO and Aspirin 300 mg rectal. The patient was unresponsive therefore was given Etomidate 20 mg IVP and Rocuronium 50 mg IV and was intubated. He was given 0.9 normal saline bolus and Ondansetron 4mg IVP and was placed on Propofol drip. Vitals on admission T 98.5 F, IA 105 bpm, RR 18, BP 135/98, O2 sat 99% on room air EKG independently interpreted as sinus rhythm, right bundle branch block, T wave inversion in V3, rate 88 bpm, QTc 465 ms Chest x-ray shows Large right pleural effusion, endotracheal tube approximately 1.8 cm from the rosalia, enteric tube in appropriate position Brain CT shows no acute intracranial process specific white matter changes likely secondary to chronic small vessel ischemic disease CT angio head & neck shows no significant intracranial vascular abnormality, fibrofatty thrombus within bilateral proximal internal carotid arteries creating 75% stenosis on right and 90% stenosis on left, partially visualized large loculated left pleural effusion Labs on admission show WBC 9.7, hemoglobin 9.9, MCV 75.7, RDW 17, platelet count 777, INR 1.1, sodium 132, creatinine 0.63, ALP 130, CK 30, albumin 2.9 Troponin I less than 0.012 UA shows trace protein Urine toxicology detected opiates, oxycodone, cocaine Respiratory panel is negative ABG shows pH 7.49, pCO2 29, pO2 > 420 Review of systems: Pertinent positives and negatives as discussed in HPI, a complete review of systems was performed and all other systems are negative. Physical examination: Vital signs reviewed General: sedated, intubated and mechanically ventilated, appears at stated age, normal bmi Derm: warm, dry, intact Head: atraumatic, normocephalic, symmetric Cardiovascular: S1 S2 reg, no murmur Lungs: CTA bilateral, no rhonchi, no rales, no accessory muscle use Abdominal: soft, non distended Extremities: No cyanosis, or pedal edema. Neuro: Unable to assess Assessment/Plan: Patient is a 68 year old male with stage IV lung cancer on immunotherapy, diabetes mellitus, hypertension, hyperlipidemia, recent upper extremity DVT on blood thinner at home, GERD presented to the ED with left sided weakness and altered mental status. Active: #. Acute cerebrovascular accident #. Altered mental status, secondary to CVA vs possible seizure #. Bilateral carotid artery stenosis Brain CT shows no acute intracranial process specific white matter changes likely secondary to chronic small vessel ischemic disease CT angio head & neck shows no significant intracranial vascular abnormality, fibrofatty thrombus within bilateral proximal internal carotid arteries creating 75% stenosis on right and 90% stenosis on left, partially visualized large loculated left pleural effusion Urine toxicology detected opiates, oxycodone, cocaine ABG shows pH 7.49, pCO2 29, pO2 > 420 Patient moved to ICU and sedated, intubated and mechanically intubated at assist control rate of 20, tidal volume 500, FiO2 40%, PEEP 5 Permissive hypertension, hold home antihypertensives Continue Levetiracetam 1000 mg IV Q12HR Obtain EEG, acetaminophen level, alcohol level, ammonia level, lactic acid, salicylate level, lipid panel Neurochecks and Train of four Continue Telemetry monitoring Honing Job Setter, Neurology consulted Consult PT, OT, MARKETING PROJECT LEAD consult vascular surgery #. Chronic large right pleural effusion Pulmnology consulted #. Hyponatremia 0.9 normal saline at 100 m/hr Monitor BMP #. Elevated alkaline phosphatase ALP elevated at 130 Monitor CMP Chronic: #. Microcytic anemia, at baseline #. Thrombocytosis, likely secondary to malignancy Transfuse if Hb<7 Monitor CBC #. Stage IV lung cancer, on immunotherapy Capmatinib at home #. Non insulin dependent diabetes mellitus #. Hypertension #. Hyperlipidemia #. Anxiety/Depression Hold home meds Permissive hypertension insulin sliding scale #. History of right upper extremity DVT continue eliquis 5 mg po bid F: 0.9 normal saline at 100 ml/hr E: Replete as required N: NPO A: Bed rest DVT prophylaxis: eliquis 5 mg BID for history of venous thromboembolism GI prophylaxis: Pantoprazole 40 mg IVP daily The patient is admitted with an anticipated more than 2 midnight stay for evaluation of altered mental status CODE STATUS: FULL CODE Discussed with: Patient's family Anticipated discharge place: Home I have seen and evaluated the patient today. I Discussed the case with the resident and agree with the resident's findings I edited the assessment and plan as necessary as documented in the resident's note. Past Medical History Past Medical History: Cancer, Diabetes Mellitus, GERD/Reflux, Hyperlipidemia, Hypertension Additional Past Medical History / Comment(s): lung cancer History of Any Multi-Drug Resistant Organisms: None Reported Past Surgical History: No Surgical Hx Reported Additional Past Surgical History / Comment(s): recent chest tube Past Anesthesia/Blood Transfusion Reactions: No Reported Reaction Additional Past Anesthesia/Blood Transfusion Reaction / Comment(s): Has never had General Anesthesia. Past Psychological History: No Psychological Hx Reported Smoking Status: Never smoker Past Alcohol Use History: Occasional Past Drug Use History: Marijuana - Past Family History Mother Family Medical History: Cancer Medications and Allergies Home Medications Medication Instructions Recorded Confirmed Type Capmatinib Hydrochloride [Tabrecta] 400 mg PO BID@0700,1600 05/18/24 06/30/24 History Ferrous Sulfate [Iron (65 MG 325 mg PO DAILY@0700 05/18/24 06/30/24 History Elemental)] Mirtazapine [Remeron] 15 mg PO HS 05/18/24 06/30/24 History Atorvastatin [Lipitor] 80 mg PO HS@1900 06/04/24 06/30/24 History Pantoprazole [Protonix] 40 mg PO BID@0700,1600 06/04/24 06/30/24 History methocarbamoL [Robaxin-750] 750 mg PO TID 06/04/24 06/30/24 History Acetaminophen [Tylenol 8 Hour] 650 mg PO Q6H PRN 06/30/24 06/30/24 History Enoxaparin [Lovenox] 60 mg SQ Q12HR@0700,1900 06/30/24 06/30/24 History Folic Acid 1 mg PO DAILY@0700 06/30/24 06/30/24 History HYDROcodone/APAP 10-325MG [[place] 1 tab PO Q6H PRN 06/30/24 06/30/24 History 10-325] Healthshake 1 dose PO TID-W/MEALS 06/30/24 06/30/24 History Lidocaine 5% Patch [Lidoderm] 1 patch TRANSDERM DAILY@0700 06/30/24 06/30/24 History Magnesium Oxide [Mag-Ox] 400 mg PO BID@0700,1600 06/30/24 06/30/24 History Sennosides [Senokot] 8.6 mg PO BID 06/30/24 06/30/24 History amLODIPine [Norvasc] 10 mg PO DAILY@0700 06/30/24 06/30/24 History polyethylene glycoL 3350 [Miralax] 17 gm PO Q72H PRN 06/30/24 06/30/24 History Allergies Allergy/AdvReac Type Severity Reaction Status Date / Time benazepril AdvReac Angioedema Verified 06/30/24 21:17 simvastatin [From Zocor] AdvReac abnormal Verified 06/30/24 21:17 liver enzymes Physical Exam Vitals: Vital Signs Temp Pulse Resp BP Pulse Ox FiO2 06/30/24 21:41 40 06/30/24 21:21 102 H 20 135/93 100 06/30/24 21:15 98.5 F 105 H 20 135/106 100 06/30/24 20:31 100 06/30/24 20:28 98.5 F 92 20 146/92 100 06/30/24 20:23 100 06/30/24 20:20 115 H 18 126/93 100 06/30/24 20:13 105 H 18 135/98 99 Intake and Output 06/30/24 06/30/24 06/30/24 06:59 14:59 22:59 Intake Total 8.559 Balance 8.559 Intake: Intake, IV Titration 8.559 Amount propofoL 1,000 mg In 8.559 Empty Bag 1 bag @ 15 MCG/ KG/MIN 6.94 mls/hr IV . [id number] [facility] Rx#:[id number] Other: Weight 77.111 kg Results CBC & Chem 7: 06/30/24 20:27 06/30/24 20:27 Labs: Abnormal Lab Results - Last 24 Hours (Table) 06/30/24 06/30/24 06/30/24 Range/Units 20:27 20:27 20:31 Hgb 9.9 L (13.0-17.5) gm/dL Hct 33.6 L (39.0-53.0) % MCV 75.7 L (80.0-100.0) fL MCH 22.4 L (25.0-35.0) pg MCHC 29.6 L (31.0-37.0) g/dL RDW 17.0 H (11.5-15.5) % Plt Count 777 H (150-450) k/uL ABG pH (7.35-7.45) ABG pCO2 (35-45) mmHg ABG pO2 (83-108) mmHg ABG O2 Saturation (94-97) % Hemoglobin (13.0-17.5) gm/dL Sodium 132 L (137-145) mmol/L Carbon Dioxide 20 L (22-30) mmol/L BUN 7 L (9-20) mg/dL Creatinine 0.63 L (0.66-1.25) mg/dL Glucose 121 H (74-99) mg/dL Alkaline Phosphatase 130 H (38-126) U/L Creatine Kinase 30 L (55-170) U/L Albumin 2.9 L (3.5-5.0) g/dL Urine Protein Trace H (Negative) Urine Opiates Screen Detected H (NotDetected) Ur Oxycodone Screen Detected H (NotDetected) Urine Cocaine Screen Detected H (NotDetected) 06/30/24 Range/Units 21:23 Hgb (13.0-17.5) gm/dL Hct (39.0-53.0) % MCV (80.0-100.0) fL MCH (25.0-35.0) pg MCHC (31.0-37.0) g/dL RDW (11.5-15.5) % Plt Count (150-450) k/uL ABG pH 7.49 H (7.35-7.45) ABG pCO2 29 L (35-45) mmHg ABG pO2 >420 H (83-108) mmHg ABG O2 Saturation >100.0 H (94-97) % Hemoglobin 9.4 L (13.0-17.5) gm/dL Sodium (137-145) mmol/L Carbon Dioxide (22-30) mmol/L BUN (9-20) mg/dL Creatinine (0.66-1.25) mg/dL Glucose (74-99) mg/dL Alkaline Phosphatase (38-126) U/L Creatine Kinase (55-170) U/L Albumin (3.5-5.0) g/dL Urine Protein (Negative) Urine Opiates Screen (NotDetected) Ur Oxycodone Screen (NotDetected) Urine Cocaine Screen (NotDetected)
[2024-07-01] MEDS ORDERED: DEXTROSE 50% SYRINGE 50 ML IVP PRN (00:06)
[2024-07-01] MEDS: SODIUM CHLORIDE 0.9% 500 ML 500 ML IV ONE (02:55)
[2024-07-01] MEDS: SODIUM CHLORIDE 0.9% 1,000 ML IV ONE ×2 (05:13→16:27)
[2024-07-01] MEDS: SODIUM CHLORIDE 0.9% 1,000 ML IV SCH (05:49)
[2024-07-01 06:51] LABS: Anisocytosis Slight; Hypochromasia Marked; MCH 22.5 pg (25.0-35.0); MCHC 28.9 g/dL (31.0-37.0); MCV 77.9 fL (80.0-100.0); Mean Platelet Volume 6.7; Microcytosis Slight; Platelet Count 317 k/uL (150-450); RBC 2.31 m/uL (4.30-5.90); RDW 17.2 % (11.5-15.5); WBC 5.6 k/uL (3.8-10.6)
[2024-07-01 06:56] LABS: HGB 5.2 gm/dL (13.0-17.5)
[2024-07-01 07:02] LABS: Glucose,Whole Blood 86 mg/dL (70-110)
[2024-07-01 07:16] LABS: Anisocytosis Slight; HCT 26.6 % (39.0-53.0); Hypochromasia Marked; MCH 21.8 pg (25.0-35.0); MCHC 29.2 g/dL (31.0-37.0); MCV 74.5 fL (80.0-100.0); Microcytosis Moderate; Platelet Count 508 k/uL (150-450); RBC 3.58 m/uL (4.30-5.90); WBC 8.6 k/uL (3.8-10.6)
[2024-07-01 07:17] LABS: HGB 7.8 gm/dL (13.0-17.5)
[2024-07-01] MEDS: IPRATROPIUM-ALBUTEROL 3 ML NEB INHALATION SCH (07:55)
[2024-07-01 08:00] LABS: ALT 11 U/L (4-49); AST 18 U/L (17-59); African American GFR (CKD) >90 (>60 ml/min/1.73 sqM); Alkaline Phosphatase 97 U/L (38-126); Anion Gap 6 mmol/L; Blood Urea Nitrogen 5 mg/dL (9-20); Calcium 7.5 mg/dL (8.4-10.2); Carbon Dioxide 21 mmol/L (22-30); Chloride 108 mmol/L (98-107); Glucose 77 mg/dL (74-99); Non-African American GFR(CKD) >90 (>60 ml/min/1.73 sqM); Potassium 3.2 mmol/L (3.5-5.1); Sodium 135 mmol/L (137-145); Total Bilirubin 0.4 mg/dL (0.2-1.3); Total Protein 5.5 g/dL (6.3-8.2)
[2024-07-01] MEDS: INSULIN ASPART (NovoLOG) 100 UNIT/ML VIAL SQ SCH ×2 (08:01→18:53)
[2024-07-01 08:21] LABS: Glucose,Whole Blood 77 mg/dL (70-110)
[2024-07-01] MEDS: APIXABAN 5 MG TAB PO SCH (08:45)
[2024-07-01] MEDS: PANTOPRAZOLE 40 MG/10 ML VIAL IVP SCH (08:46)
[2024-07-01] MEDS: CISATRACURIUM 2 MG/ML 5 ML VIAL IV ONE (09:01)
--- NOTE | 2024-07-01 09:45 | P.GSCN ---
History of Present Illness Consult date: 07/01/24 Reason for Consult: Bilateral carotid stenosis Requesting physician: Daphne Werner History of present illness: This is a 68-year-old -[place] male who apparently was having some slurred speech and left sided weakness yesterday. Patient is currently intubated and sedated and there is no family members available. HPI obtained from the chart. He has a past medical history including lung cancer, diabetes mellitus, hypertension, hyperlipidemia and right upper extremity DVT on Lovenox. Reportedly patient was picked up to go to the doctor's office where it was noted that he was having some slurred speech and then later had left-sided weakness. EMS was called and apparently patient became unresponsive at some point time and then came back around again however was reported confused. At some point he was intubated to protect his airway. He is admitted to the hospital to rule out stroke. He had a brain CT that was normal and a CTA of the head and neck that reported bilateral carotid stenosis. Vascular surgery was consulted for carotid stenosis. Interventional neurology was contacted via the emergency department and deemed that patient was not a candidate for tenecteplase. Review of Systems ROS unobtainable: due to endotracheal tube Past Medical History Past Medical History: Cancer, Diabetes Mellitus, GERD/Reflux, Hyperlipidemia, Hypertension Additional Past Medical History / Comment(s): lung cancer History of Any Multi-Drug Resistant Organisms: None Reported Past Surgical History: No Surgical Hx Reported Additional Past Surgical History / Comment(s): recent chest tube Past Anesthesia/Blood Transfusion Reactions: No Reported Reaction Additional Past Anesthesia/Blood Transfusion Reaction / Comm: Has never had General Anesthesia. Past Psychological History: No Psychological Hx Reported Smoking Status: Never smoker Past Alcohol Use History: Occasional Past Drug Use History: Marijuana - Past Family History Mother Family Medical History: Cancer Medications and Allergies Home Medications Medication Instructions Recorded Confirmed Type Capmatinib Hydrochloride [Tabrecta] 400 mg PO BID@0700,1600 05/18/24 06/30/24 History Ferrous Sulfate [Iron (65 MG 325 mg PO DAILY@0700 05/18/24 06/30/24 History Elemental)] Mirtazapine [Remeron] 15 mg PO HS 05/18/24 06/30/24 History Atorvastatin [Lipitor] 80 mg PO HS@1900 06/04/24 06/30/24 History Pantoprazole [Protonix] 40 mg PO BID@0700,1600 06/04/24 06/30/24 History methocarbamoL [Robaxin-750] 750 mg PO TID 06/04/24 06/30/24 History Acetaminophen [Tylenol 8 Hour] 650 mg PO Q6H PRN 06/30/24 06/30/24 History Enoxaparin [Lovenox] 60 mg SQ Q12HR@0700,1900 06/30/24 06/30/24 History Folic Acid 1 mg PO DAILY@0700 06/30/24 06/30/24 History HYDROcodone/APAP 10-325MG [[place] 1 tab PO Q6H PRN 06/30/24 06/30/24 History 10-325] Healthshake 1 dose PO TID-W/MEALS 06/30/24 06/30/24 History Lidocaine 5% Patch [Lidoderm] 1 patch TRANSDERM DAILY@0700 06/30/24 06/30/24 History Magnesium Oxide [Mag-Ox] 400 mg PO BID@0700,1600 06/30/24 06/30/24 History Sennosides [Senokot] 8.6 mg PO BID 06/30/24 06/30/24 History amLODIPine [Norvasc] 10 mg PO DAILY@0700 06/30/24 06/30/24 History polyethylene glycoL 3350 [Miralax] 17 gm PO Q72H PRN 06/30/24 06/30/24 History Allergies Allergy/AdvReac Type Severity Reaction Status Date / Time benazepril AdvReac Angioedema Verified 06/30/24 21:17 simvastatin [From Zocor] AdvReac abnormal Verified 06/30/24 21:17 liver enzymes Surgical - Exam Vital Signs Pulse Resp BP Pulse Ox 105 H 18 135/98 99 06/30/24 20:13 06/30/24 20:13 06/30/24 20:13 06/30/24 20:13 General appearance: The patient is sedated and intubated. HET: Head is normocephalic and atraumatic. Neck: Supple. Heart: Regular. Lungs: Equal expansion, on mechanical ventilation. Abdomen: Soft, nondistended. Extremities: Normal skin color and turgor. Palpable radial pulses. Neurological: Intubated and sedated. Results - Labs 07/02/24 05:41 07/02/24 05:41 Abnormal Lab Results - Last 24 Hours (Table) 06/30/24 06/30/24 06/30/24 Range/Units 20:27 20:27 20:31 RBC (4.30-5.90) m/uL Hgb 9.9 L (13.0-17.5) gm/dL Hct 33.6 L (39.0-53.0) % MCV 75.7 L (80.0-100.0) fL MCH 22.4 L (25.0-35.0) pg MCHC 29.6 L (31.0-37.0) g/dL RDW 17.0 H (11.5-15.5) % Plt Count 777 H (150-450) k/uL ABG pH (7.35-7.45) ABG pCO2 (35-45) mmHg ABG pO2 (83-108) mmHg ABG O2 Saturation (94-97) % Hemoglobin (13.0-17.5) gm/dL Sodium 132 L (137-145) mmol/L Carbon Dioxide 20 L (22-30) mmol/L BUN 7 L (9-20) mg/dL Creatinine 0.63 L (0.66-1.25) mg/dL Glucose 121 H (74-99) mg/dL Plasma Lactic Acid Jay (0.7-2.0) mmol/L Alkaline Phosphatase 130 H (38-126) U/L Creatine Kinase 30 L (55-170) U/L Albumin 2.9 L (3.5-5.0) g/dL Urine Protein Trace H (Negative) Urine Opiates Screen Detected H (NotDetected) Ur Oxycodone Screen Detected H (NotDetected) Urine Cocaine Screen Detected H (NotDetected) 06/30/24 06/30/24 07/01/24 Range/Units 21:23 23:20 05:37 RBC 2.31 L (4.30-5.90) m/uL Hgb 5.2 L* D (13.0-17.5) gm/dL Hct 18.0 L* (39.0-53.0) % MCV 77.9 L (80.0-100.0) fL MCH 22.5 L (25.0-35.0) pg MCHC 28.9 L (31.0-37.0) g/dL RDW 17.2 H (11.5-15.5) % Plt Count (150-450) k/uL ABG pH 7.49 H (7.35-7.45) ABG pCO2 29 L (35-45) mmHg ABG pO2 >420 H (83-108) mmHg ABG O2 Saturation >100.0 H (94-97) % Hemoglobin 9.4 L (13.0-17.5) gm/dL Sodium (137-145) mmol/L Carbon Dioxide (22-30) mmol/L BUN (9-20) mg/dL Creatinine (0.66-1.25) mg/dL Glucose (74-99) mg/dL Plasma Lactic Acid Jay 3.0 H* (0.7-2.0) mmol/L Alkaline Phosphatase (38-126) U/L Creatine Kinase (55-170) U/L Albumin (3.5-5.0) g/dL Urine Protein (Negative) Urine Opiates Screen (NotDetected) Ur Oxycodone Screen (NotDetected) Urine Cocaine Screen (NotDetected) Diabetes panel 06/30/24 Range/Units 20:27 Sodium 132 L (137-145) mmol/L Potassium 4.2 (3.5-5.1) mmol/L Chloride 102 (98-107) mmol/L Carbon Dioxide 20 L (22-30) mmol/L BUN 7 L (9-20) mg/dL Creatinine 0.63 L (0.66-1.25) mg/dL Glucose 121 H (74-99) mg/dL Calcium 8.7 (8.4-10.2) mg/dL AST 28 (17-59) U/L ALT 16 (4-49) U/L Alkaline Phosphatase 130 H (38-126) U/L Total Protein 7.3 (6.3-8.2) g/dL Albumin 2.9 L (3.5-5.0) g/dL Calcium panel 06/30/24 Range/Units 20:27 Calcium 8.7 (8.4-10.2) mg/dL Albumin 2.9 L (3.5-5.0) g/dL Pituitary panel 06/30/24 Range/Units 20:27 Sodium 132 L (137-145) mmol/L Potassium 4.2 (3.5-5.1) mmol/L Chloride 102 (98-107) mmol/L Carbon Dioxide 20 L (22-30) mmol/L BUN 7 L (9-20) mg/dL Creatinine 0.63 L (0.66-1.25) mg/dL Glucose 121 H (74-99) mg/dL Calcium 8.7 (8.4-10.2) mg/dL Adrenal panel 06/30/24 Range/Units 20:27 Sodium 132 L (137-145) mmol/L Potassium 4.2 (3.5-5.1) mmol/L Chloride 102 (98-107) mmol/L Carbon Dioxide 20 L (22-30) mmol/L BUN 7 L (9-20) mg/dL Creatinine 0.63 L (0.66-1.25) mg/dL Glucose 121 H (74-99) mg/dL Calcium 8.7 (8.4-10.2) mg/dL Total Bilirubin 0.6 (0.2-1.3) mg/dL AST 28 (17-59) U/L ALT 16 (4-49) U/L Alkaline Phosphatase 130 H (38-126) U/L Total Protein 7.3 (6.3-8.2) g/dL Albumin 2.9 L (3.5-5.0) g/dL - Imaging Comments: CT angiogram head and neck reports no significant intracranial vascular abnormality. Fibrofatty thrombus within bilateral proximal internal carotid arteries creating 75% stenosis on the right and 90% stenosis on the left. Partially visualized large loculated left pleural effusion. Brain CT reports no acute intracranial process. Chest x-ray reports appropriately positioned support tubes. Large right pleural effusion. Assessment and Plan Assessment: 1. Bilateral internal carotid artery stenosis 2. Altered mental status changes 3. Reported slurred speech and left-sided weakness 4. Diabetes mellitus 5. Hypertension 6. Hyperlipidemia, 7. History of right upper extremity DVT on Lovenox 8. Stage IV lung cancer on immunotherapy Plan: 1. Continue with Eliquis and Plavix, would recommend statin however patient has allergy to simvastatin 2. Await evaluation and recommendations from neurology 3. Rest of medical management per sports physical therapist and primary medical team 4. Further recommendations forthcoming from vascular surgery based on clinical course Thank you for this consultation, we will continue to follow. The impression and plan of care has been dictated as directed. Dr. Mace I performed a history and examination of this patient, discussed the same with the dictator. I agree with the dictator's note ,documented as a scribe. Any additional findings or plans will be noted. I personally reviewed images and report. There is more viscous sign consistent with fibrofatty thrombus as opposed to calcific disease. Discussed with medicine patient may potentially benefit from transfer for thrombectomy per interventional neurology versus goals of care discussion. I believe he would benefit from full anticoagulation if able due to the appearance of the bilateral internal carotid arteries. Await further clinical course and neurologic evaluations
--- NOTE | 2024-07-01 10:06 | XR ---
EXAMINATION TYPE: XR chest 1V confirm line plcmt DATE OF EXAM: 07/01/2024 9:58 AM COMPARISON: None. CLINICAL INDICATION: Male, 68 years old with history of Central line placement, TECHNIQUE: XR chest 1V confirm line plcmt view(s) obtained. FINDINGS: The heart size is normal. The pulmonary vasculature is normal. There is opacification of the right lung Endotracheal tube tip is 5 cm above the rosalia. Nasogastric tube transverses thorax with tip in the l eft upper quadrant of the abdomen. A central venous catheter tip is in the superior vena cava region IMPRESSION: 1. Opacified right hemithorax 2. Lines and catheters discussed above [facility], , 07/01/2024 10:03 AM
[2024-07-01] MEDS ORDERED: HEPARIN SODIUM 1,000 UN/ML (10ML VL) IV PRN (10:08)
[2024-07-01] MEDS ORDERED: Potassium Replacement Protocol 1 EACH MISC MISCELLANE PRN ×2 (10:15→16:56)
[2024-07-01] MEDS: HEPARIN SOD,PORK IN 0.45% NACL 25,000 UNIT in 0.45% NACL 1 250ML.BAG IV SCH ×2 (10:25→17:52)
[2024-07-01] MEDS: ASPIRIN 81 MG PO SCH (10:31)
[2024-07-01] MEDS: POTASSIUM BICARBONATE/CIT AC 20 MEQ TABLET.EFF PO ONE (10:31)
[2024-07-01] MEDS: CHLORHEXIDINE GLUCONATE 15 ML CUP MUCOUS MEM SCH (10:31)
[2024-07-01] MEDS: HEPARIN SODIUM 1,000 UN/ML (10ML VL) IV ONE (10:31)
--- NOTE | 2024-07-01 10:38 | PCN ---
PROCEDURE NOTE PROCEDURE PERFORMED: Re-intubation of a patient with poorly functioning/nonfunctioning endotracheal tube. BEFORE SCHOOL: Dr. Mendoza. ASSISTANTS: Dr. Kevyn Conti and Dr. Olive Worthington. The patient's procedure was done in room 255. The patient's endotracheal cuff was not holding any air. We used the endotracheal tube changer, to change the patient's endotracheal tube. We placed a #[address] tube in place of the patient's 7-1/2 endotracheal tube. The stylet was placed through the old endotracheal tube. The patient was placed on 100% oxygen. The old endotracheal tube was removed. The new endotracheal tube was placed over the stylet, and placed on 25 cm, which is where the old tube was. There were good bilateral breath sounds. The return volumes on the ventilator were excellent. The new tube was secured. The balloon was inflated and the patient will have a chest x-ray. The whole process was without complication or issue. The patient tolerated the procedure well without difficulty. MMODL / IJN: [id number] /
--- NOTE | 2024-07-01 10:43 | PCN ---
PROCEDURE NOTE PROCEDURE PERFORMED: Right radial arterial line. INSIDE SALES REPRESENTATIVE: Dr. Mendoza. Assisted by Dr. Kevyn Conti and Dr. Olive Worthington. The patient's procedure took place in room 255. We used the right radial artery. ARTERIAL LINE PLACEMENT: Indications: Hemodynamic monitoring. A time-out was completed verifying correct patient, procedure, site, positioning, and implant(s) or special equipment if applicable. Ulysses's test was performed to ensure adequate perfusion. The patient's right wrist or right groin was prepped and draped in sterile fashion. 1% Lidocaine was used to anesthetize the area. An 18G Arrow arterial line was introduced into the right radial artery. The catheter was threaded over the guide wire and the needle was removed with appropriate pulsatile blood return. Blood loss was minimal. The catheter was then sutured in place to the skin and a sterile dressing applied. Perfusion to the extremity distal to the point of catheter insertion was checked and found to be adequate. There were no immediate complications. The patient tolerated the procedure well. The catheter was sutured in place. Sterile dressings were applied by the nurse. There was good waveform and blood pressure reading. MMODL / IJN: [id number] /
[2024-07-01 10:57] LABS: INR 1.1 (<1.2); Partial Thromboplastin Time 27.9 sec (22.0-30.0); Prothrombin Time 12.3 sec (10.0-12.5)
[2024-07-01] MEDS ORDERED: POTASSIUM CHLORIDE 20 MEQ in WATER FOR INJECTION 1 100ML.BAG IVPB SCH (11:00)
[2024-07-01 11:13] LABS: Chol/HDL Ratio 2.67 Ratio; LDL Cholesterol,Calculated 24.4 mg/dL (0.0-131.0); VLDL Calculation 14.36 mg/dL (5.00-40.00)
[2024-07-01 11:14] LABS: % Iron Saturation 10.75 (15.00-50.00)
--- NOTE | 2024-07-01 11:16 | PCN ---
PROCEDURE NOTE PROCEDURE PERFORMED: Left subclavian triple-lumen catheter. PREOPERATIVE DIAGNOSIS: Administration of fluids and pressors. POSTOPERATIVE DIAGNOSIS: Administration of fluids and pressors. The patient's procedure took place in room 255. There was informed consent and universal timeout. OPERATORS: Dr. Mendoza, Dr. Worthington, and Dr. Kevyn Conti. We used the left subclavian site. TRIPLE LUMEN CATHETER PLACEMENT: Indication: Hemodynamic monitoring/Intravenous access. A time-out was completed verifying correct patient, procedure, site, positioning, and implant(s) or special equipment if applicable. The patient was placed in a dependent position appropriate for triple lumen catheter placement based on the vein to be cannulated. The patient's left shoulder or left neck or left groin was prepped and draped in sterile fashion. 1% Lidocaine was used to anesthetize the surrounding skin area. A triple lumen 9F Cordis catheter was introduced into the left subclavian vein using Seldinger technique. The catheter was threaded smoothly over the guide wire and appropriate blood return was obtained. Each lumen of the catheter was evacuated of air and flushed with sterile saline. The catheter was then sutured in place to the skin and a sterile dressing applied. Perfusion to the extremity distal to the point of catheter insertion was checked and found to be adequate. There was no immediate complication. The patient tolerated the procedure well. There was good blood return from all 3 ports. The catheter was sutured in place and a sterile dressing was applied by the nurse. A chest x-ray revealed the tip of the catheter to be at the junction of superior vena cava and right atrium. MMODL / IJN: [id number] /
[2024-07-01 11:44] LABS: Glucose,Whole Blood 101 mg/dL (70-110)
[2024-07-01 11:48] LABS: Magnesium 1.5 mg/dL (1.6-2.3)
--- NOTE | 2024-07-01 12:50 | P.CNPUL ---
History of Present Illness Consult date: 07/01/24 Requesting physician: Sharron Faye Reason for consult: dyspnea, hypoxemia, abnormal CXR/CT, other Chief complaint: Respiratory failure. History of present illness: Pulmonary consult dated July 01, 2024. 68-year-old black male with a history of multiple medical problems including advanced lung cancer, right pleural effusion, hyperlipidemia, hypertension, GERD, type 2 diabetes. The patient presented to the emergency department, at about 8:00 PM on June 30, with strokelike symptoms. He apparently was found to have slurred speech. He apparently became incoherent, and was apparently struggling to move the left side of his body. EMS was called and he was brought into the emergency department. The patient apparently was not able to protect his airway, and required intubation and mechanical ventilation. I did speak to Dr. Rodriguez in the emergency department. The patient is transferred to the intensive care unit, for further monitoring and management. The patient's drug screen was positive for opiates and cocaine. That may have had some effect on his neurologic issues. He is currently on volume assist-control, rate 20, tidal volume 500, FiO2 40%, PEEP of 5. Blood gases initially showed a pO2 that was greater than 420, pCO2 29, pH of 7.49. The patient is on propofol at 30 mcg/kg/min, saline at 120 cc an hour. When the patient came to the intensive care unit, we placed a right radial art line, a left subclavian triple-lumen catheter, and because his endotracheal tube was defective, we replaced the endotracheal tube with a #8 endotracheal tube. Current laboratory data includes a white count of 8.6, hemoglobin 7.8, hematocrit 26.6, platelet count of 508 ,000. Sodium 135, potassium 3.2, chlorides 108, CO2 21, BUN 5, and creatinine 0.58. Calcium 7.5, magnesium 1.5. Albumin 2. Urine is negative. Drug screen was positive for opiates, oxycodone, and cocaine. Viral studies were negative. Chest x-ray showed an opacified right hemithorax. Review of Systems REVIEW OF SYSTEMS: CONSTITUTIONAL: [Negative.] NEUROLOGIC: Slurred speech, left-sided weakness. HEENT: [ Negative.] CARDIAC: [Negative.] PULMONARY: [Negative.] GI: [Negative.] : [Negative.] RHEUMATOLOGIC: [ Negative.] IMMUNOLOGIC: [ Negative.] ENDOCRINE: [Negative. ] DERMATOLOGIC: [Negative.] Past Medical History Past Medical History: Cancer, Diabetes Mellitus, GERD/Reflux, Hyperlipidemia, Hypertension Additional Past Medical History / Comment(s): lung cancer History of Any Multi-Drug Resistant Organisms: None Reported Past Surgical History: No Surgical Hx Reported Additional Past Surgical History / Comment(s): recent chest tube Past Anesthesia/Blood Transfusion Reactions: No Reported Reaction Additional Past Anesthesia/Blood Transfusion Reaction / Comment(s): Has never had General Anesthesia. Past Psychological History: No Psychological Hx Reported Smoking Status: Never smoker Past Alcohol Use History: Occasional Past Drug Use History: Marijuana - Past Family History Mother Family Medical History: Cancer Medications and Allergies Home Medications Medication Instructions Recorded Confirmed Type Capmatinib Hydrochloride [Tabrecta] 400 mg PO BID@0700,1600 05/18/24 06/30/24 History Ferrous Sulfate [Iron (65 MG 325 mg PO DAILY@0700 05/18/24 06/30/24 History Elemental)] Mirtazapine [Remeron] 15 mg PO HS 05/18/24 06/30/24 History Atorvastatin [Lipitor] 80 mg PO HS@1900 06/04/24 06/30/24 History Pantoprazole [Protonix] 40 mg PO BID@0700,1600 06/04/24 06/30/24 History methocarbamoL [Robaxin-750] 750 mg PO TID 06/04/24 06/30/24 History Acetaminophen [Tylenol 8 Hour] 650 mg PO Q6H PRN 06/30/24 06/30/24 History Enoxaparin [Lovenox] 60 mg SQ Q12HR@0700,1900 06/30/24 06/30/24 History Folic Acid 1 mg PO DAILY@0700 06/30/24 06/30/24 History HYDROcodone/APAP 10-325MG [[place] 1 tab PO Q6H PRN 06/30/24 06/30/24 History 10-325] Healthshake 1 dose PO TID-W/MEALS 06/30/24 06/30/24 History Lidocaine 5% Patch [Lidoderm] 1 patch TRANSDERM DAILY@0700 06/30/24 06/30/24 History Magnesium Oxide [Mag-Ox] 400 mg PO BID@0700,1600 06/30/24 06/30/24 History Sennosides [Senokot] 8.6 mg PO BID 06/30/24 06/30/24 History amLODIPine [Norvasc] 10 mg PO DAILY@0700 06/30/24 06/30/24 History polyethylene glycoL 3350 [Miralax] 17 gm PO Q72H PRN 06/30/24 06/30/24 History Allergies Allergy/AdvReac Type Severity Reaction Status Date / Time benazepril AdvReac Angioedema Verified 06/30/24 21:17 simvastatin [From Zocor] AdvReac abnormal Verified 06/30/24 21:17 liver enzymes Physical Exam Osteopathic Statement: *. No significant issues noted on an osteopathic structural exam other than those noted in the History and Physical/Consult. Vitals: Vital Signs Temp Pulse Pulse Resp BP BP Pulse Ox 07/01/24 12:33 07/01/24 11:48 07/01/24 11:30 96 2 L 100 07/01/24 10:30 95 20 90/56 07/01/24 10:00 93 101 H 20 110/68 99 07/01/24 09:50 07/01/24 09:30 94 20 100 07/01/24 09:00 97.6 F 92 20 98/70 100 07/01/24 08:03 92 07/01/24 08:00 98 F 87 20 98/70 100 07/01/24 07:55 87 20 90/69 100 07/01/24 07:46 07/01/24 07:45 87 20 90/69 100 07/01/24 06:30 86 20 104/74 100 07/01/24 06:00 86 11 L 113/81 100 07/01/24 05:43 07/01/24 05:30 82 20 99/70 100 07/01/24 05:00 90 21 90/69 100 07/01/24 04:30 90 20 97/71 100 07/01/24 04:00 92 20 100/74 100 07/01/24 03:30 91 20 92/71 100 07/01/24 03:00 89 20 91/70 100 07/01/24 02:30 93 20 96/70 100 07/01/24 02:00 93 20 93/72 100 07/01/24 01:30 93 20 90/70 100 07/01/24 01:00 96 20 93/70 100 07/01/24 00:30 96 20 97/72 100 07/01/24 00:04 07/01/24 00:00 98 20 95/73 100 06/30/24 23:30 102 H 20 90/72 100 06/30/24 23:15 101 H 20 90/72 100 06/30/24 23:00 101 H 20 99/74 100 06/30/24 22:53 115 H 20 99/88 100 06/30/24 22:42 108 H 20 96/73 100 06/30/24 21:45 113 H 20 106/86 100 06/30/24 21:41 06/30/24 21:21 102 H 20 135/93 100 06/30/24 21:15 98.5 F 105 H 20 135/106 100 06/30/24 21:00 93 20 136/92 100 06/30/24 20:45 86 20 146/92 100 06/30/24 20:28 98.5 F 92 20 146/92 100 06/30/24 20:23 06/30/24 20:20 115 H 18 126/93 100 06/30/24 20:13 105 H 18 135/98 99 FiO2 07/01/24 12:33 40 07/01/24 11:48 40 07/01/24 11:30 07/01/24 10:30 07/01/24 10:00 07/01/24 09:50 40 07/01/24 09:30 07/01/24 09:00 40 07/01/24 08:03 07/01/24 08:00 07/01/24 07:55 07/01/24 07:46 40 07/01/24 07:45 40 07/01/24 06:30 07/01/24 06:00 07/01/24 05:43 40 07/01/24 05:30 07/01/24 05:00 07/01/24 04:30 07/01/24 04:00 40 07/01/24 03:30 40 07/01/24 03:00 40 07/01/24 02:30 07/01/24 02:00 07/01/24 01:30 07/01/24 01:00 07/01/24 00:30 07/01/24 00:04 40 07/01/24 00:00 06/30/24 23:30 06/30/24 23:15 06/30/24 23:00 06/30/24 22:53 06/30/24 22:42 06/30/24 21:45 06/30/24 21:41 40 06/30/24 21:21 06/30/24 21:15 06/30/24 21:00 06/30/24 20:45 06/30/24 20:28 06/30/24 20:23 100 06/30/24 20:20 06/30/24 20:13 Intake and Output 06/30/24 07/01/24 07/01/24 22:59 06:59 14:59 Intake Total 17.080 2299.684 844.420 Output Total 545 290 Balance 17.080 1754.684 554.420 Intake: IV 615 Sodium Chloride 0.9% 1, 600 000 ml @ 120 mls/hr IV . Q8H20M [facility] Rx#:[id number] pressure bag 15 Intake, IV Titration 17.080 2299.684 229.420 Amount Sodium Chloride 0.9% 1, 240 120 000 ml @ 120 mls/hr IV . Q8H20M [facility] Rx#:[id number] Sodium Chloride 0.9% 1, 500 000 ml @ 120 mls/hr IV . Q8H20M [facility] Rx#:[id number] Sodium Chloride 0.9% 1, 1000 000 ml @ 999 mls/hr IV . Q1H1M [facility] Rx#:[id number] Sodium Chloride 0.9% 500 500 ml 500 ml @ 999 mls/hr IV .Q31M [facility] Rx#:[id number] propofoL 1,000 mg In 17.080 59.684 109.420 Empty Bag 1 bag @ 15 MCG/ KG/MIN 6.94 mls/hr IV . [id number] [facility] Rx#:[id number] Oral 0 Output: Urine 545 250 Other 40 Other: Weight 77.111 kg ABP, PAP, CO, CI - Last 8 Hours Arterial Blood Pressure 90/58 No acute distress, sedated, initially seen in the emergency department, and then in the intensive care unit, currently on propofol. HEENT examination is grossly unremarkable. Patient has an orally placed endotracheal tube. Neck supple. Full range of motion. No adenopathy thyromegaly or neck vein distention. Cardiovascular examination reveals regular rhythm rate. S1-S2 normal. No S3 or S4. No discernible murmur noted. Heart sounds are distant. Lungs reveal mild scattered rhonchi. No wheezes or crackles. Breath sounds are diminished on the right side. Abdomen soft without bowel sounds. Extremities are intact. No cyanosis clubbing or edema. Skin is without rash or lesion. Neurologic examination cannot be adequately assessed at this time. Results - Laboratory Findings CBC and BMP: 07/01/24 06:58 07/01/24 07:40 ABG ABG pH 7.49 (7.35-7.45) H 06/30/24 21:23 ABG pCO2 29 mmHg (35-45) L 06/30/24 21:23 ABG pO2 >420 mmHg (83-108) H 06/30/24 21:23 ABG O2 Saturation >100.0 % (94-97) H 06/30/24 21:23 PT/INR, D-dimer PT 12.3 sec (10.0-12.5) 07/01/24 10:18 INR 1.1 (<1.2) 07/01/24 10:18 Abnormal lab findings: Abnormal Labs 06/30/24 06/30/24 06/30/24 20:27 20:27 20:31 RBC Hgb 9.9 L Hct 33.6 L MCV 75.7 L MCH 22.4 L MCHC 29.6 L RDW 17.0 H Plt Count 777 H ABG pH ABG pCO2 ABG pO2 ABG O2 Saturation Hemoglobin Sodium 132 L Potassium Chloride Carbon Dioxide 20 L BUN 7 L Creatinine 0.63 L Glucose 121 H Plasma Lactic Acid Jay Calcium Magnesium Iron TIBC % Saturation Transferrin Ferritin Alkaline Phosphatase 130 H Creatine Kinase 30 L Total Protein Albumin 2.9 L HDL Cholesterol Urine Protein Trace H Urine Opiates Screen Detected H Ur Oxycodone Screen Detected H Urine Cocaine Screen Detected H 06/30/24 06/30/24 07/01/24 21:23 23:20 05:37 RBC 2.31 L Hgb 5.2 L* D Hct 18.0 L* MCV 77.9 L MCH 22.5 L MCHC 28.9 L RDW 17.2 H Plt Count ABG pH 7.49 H ABG pCO2 29 L ABG pO2 >420 H ABG O2 Saturation >100.0 H Hemoglobin 9.4 L Sodium Potassium Chloride Carbon Dioxide BUN Creatinine Glucose Plasma Lactic Acid Jay 3.0 H* Calcium Magnesium Iron TIBC % Saturation Transferrin Ferritin Alkaline Phosphatase Creatine Kinase Total Protein Albumin HDL Cholesterol Urine Protein Urine Opiates Screen Ur Oxycodone Screen Urine Cocaine Screen 07/01/24 07/01/24 07/01/24 06:58 07:40 07:40 RBC 3.58 L Hgb 7.8 L D Hct 26.6 L MCV 74.5 L MCH 21.8 L MCHC 29.2 L RDW 17.0 H Plt Count 508 H ABG pH ABG pCO2 ABG pO2 ABG O2 Saturation Hemoglobin Sodium Potassium Chloride Carbon Dioxide BUN Creatinine Glucose Plasma Lactic Acid Jay Calcium Magnesium Iron 10 L TIBC 93 L % Saturation 10.75 L Transferrin 66.4 L 66.5 L Ferritin 373.0 H Alkaline Phosphatase Creatine Kinase Total Protein Albumin HDL Cholesterol Urine Protein Urine Opiates Screen Ur Oxycodone Screen Urine Cocaine Screen 07/01/24 07/01/24 07:40 10:35 RBC Hgb Hct MCV MCH MCHC RDW Plt Count ABG pH ABG pCO2 ABG pO2 ABG O2 Saturation Hemoglobin Sodium 135 L Potassium 3.2 L Chloride 108 H Carbon Dioxide 21 L BUN 5 L Creatinine 0.58 L Glucose Plasma Lactic Acid Jay Calcium 7.5 L Magnesium 1.5 L Iron TIBC % Saturation Transferrin Ferritin Alkaline Phosphatase Creatine Kinase Total Protein 5.5 L Albumin 2.0 L HDL Cholesterol 23.20 L Urine Protein Urine Opiates Screen Ur Oxycodone Screen Urine Cocaine Screen - Diagnostic Findings Chest x-ray: image reviewed Assessment and Plan Assessment: Acute respiratory failure, requiring intubation/mechanical ventilation, secondary to poor neurologic status, suspected CVA, and inability to protect airway, June 30, 2024. History of advanced/stage IV lung cancer. History of recurrent right-sided pleural effusion. History of hyperlipidemia. History of hypertension. History of gastroesophageal reflux disease. History of diabetes mellitus. Polysubstance abuse. Plan: Plan dated July 01, 2024. The patient is seen initially in the emergency department, July 01, and then in the intensive care unit. A right radial arterial line was placed. A left subclavian vein triple-lumen catheter was placed and, the patient was reintubated because the cuff of the endotracheal tube was defective. All this was done in the intensive care unit, after the patient arrived. The patient's blood gases initially showed a pO2 that was greater than 420, pCO2 of 29, pH of 7.49. He remains on volume assist-control, rate 20, tidal volume 500, FiO2 40%, PEEP of 5. The patient is getting propofol at 30 mcg/kg/min. He is also getting saline at 120 cc an hour. Tube feedings will be started. Drug screen was positive for opiates, and cocaine. Labs, x-rays, and medications are reviewed. He was not a candidate for thrombolytic therapy, and all he got was Plavix, and aspirin. We will continue to follow make recommendations along the way. Apparently his is driving up to see him from [place]. Time with Patient: Greater than 30
--- NOTE | 2024-07-01 13:09 | P.CNNES ---
History of Present Illness Consult date: 07/01/24 Requesting physician: Wilber Rodriguez Reason for Consult: cva, ams History of Present Illness: This is a 68-year-old gentleman who present emergency department because of altered mental status. History is obtained from medical record. It seems that yesterday patient was picked up by his cousin for doctor's appointment around 2 PM and it seems that patient was noted to have slurring of the speech. Upon returning from his doctor's appointment returning at 6:30 PM yesterday patient had left-sided weakness and he was incoherent. EMS was called over and there is a concern for stroke and the patient was unresponsive and it seems the patient was not responding to staff or EMS. Seems also per the ED note when EMS evaluated him he was mumbling was incoherent and stopped talking again and he had forced gaze deviation to the left for the EMS. Patient has history of advanced lung cancer as well as has history of DVT and he is on Lovenox. He has history of hypertension, diabetes. As a result a code stroke was activated. The ED physician spoke with the stroke attending, Dr. Boudreaux. CT of the head is reported as no acute intracranial process. I personally reviewed the CT and agree with the report CT angiography of the head and neck is reported as significant or cranial vascular abnormality. 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 Partially visualized left occluded left pleural effusion Stroke attending recommended no IV thrombolytic since the patient is already on Lovenox and the risk outweigh the benefit. I recommended Keppra since the patient was unresponsive and as seizure coverage. Because of patient was unresponsive patient was intubated on the ventilator to protect his airway. The nurse notified me today the patient was doing IV Nimbex. He is on IV propofol. She stated that patient moved his feet Other workup during this hospital visit consisted of: His hemoglobin dropped to 5.2 during this hospital visit and currently 7.8. On presentation was 9.9. Lipid panel is triglyceride 71, cholesterol 62 LDL is 24 and HDL is 23 TSH was 1.950 Sodium is 132, calcium is 8.7, initial serum glucose is 121 CK level is 30. Ammonia level is 9 Urine drug screen is positive for opiates, oxycodone and cocaine. Otherwise rest is not detected. Review of Systems Limited but as per HPI. Past Medical History Past Medical History: Cancer, Diabetes Mellitus, GERD/Reflux, Hyperlipidemia, Hypertension Additional Past Medical History / Comment(s): lung cancer History of Any Multi-Drug Resistant Organisms: None Reported Past Surgical History: No Surgical Hx Reported Additional Past Surgical History / Comment(s): recent chest tube Past Anesthesia/Blood Transfusion Reactions: No Reported Reaction Additional Past Anesthesia/Blood Transfusion Reaction / Comment(s): Has never had General Anesthesia. Past Psychological History: No Psychological Hx Reported Smoking Status: Never smoker Past Alcohol Use History: Occasional Past Drug Use History: Marijuana - Past Family History Mother Family Medical History: Cancer Medications and Allergies Home Medications Medication Instructions Recorded Confirmed Type Capmatinib Hydrochloride [Tabrecta] 400 mg PO BID@0700,1600 05/18/24 06/30/24 History Ferrous Sulfate [Iron (65 MG 325 mg PO DAILY@0700 05/18/24 06/30/24 History Elemental)] Mirtazapine [Remeron] 15 mg PO HS 05/18/24 06/30/24 History Atorvastatin [Lipitor] 80 mg PO HS@1900 06/04/24 06/30/24 History Pantoprazole [Protonix] 40 mg PO BID@0700,1600 06/04/24 06/30/24 History methocarbamoL [Robaxin-750] 750 mg PO TID 06/04/24 06/30/24 History Acetaminophen [Tylenol 8 Hour] 650 mg PO Q6H PRN 06/30/24 06/30/24 History Enoxaparin [Lovenox] 60 mg SQ Q12HR@0700,1900 06/30/24 06/30/24 History Folic Acid 1 mg PO DAILY@0700 06/30/24 06/30/24 History HYDROcodone/APAP 10-325MG [[place] 1 tab PO Q6H PRN 06/30/24 06/30/24 History 10-325] Healthshake 1 dose PO TID-W/MEALS 06/30/24 06/30/24 History Lidocaine 5% Patch [Lidoderm] 1 patch TRANSDERM DAILY@0700 06/30/24 06/30/24 History Magnesium Oxide [Mag-Ox] 400 mg PO BID@0700,1600 06/30/24 06/30/24 History Sennosides [Senokot] 8.6 mg PO BID 06/30/24 06/30/24 History amLODIPine [Norvasc] 10 mg PO DAILY@0700 06/30/24 06/30/24 History polyethylene glycoL 3350 [Miralax] 17 gm PO Q72H PRN 06/30/24 06/30/24 History Allergies Allergy/AdvReac Type Severity Reaction Status Date / Time benazepril AdvReac Angioedema Verified 06/30/24 21:17 simvastatin [From Zocor] AdvReac abnormal Verified 06/30/24 21:17 liver enzymes Physical Examination - Vital Signs Vital Signs: Vital Signs Temp Pulse Pulse Resp BP BP Pulse Ox 07/01/24 12:39 96 07/01/24 12:33 07/01/24 11:48 07/01/24 11:30 96 2 L 100 07/01/24 10:30 95 20 90/56 07/01/24 10:00 93 101 H 20 110/68 99 07/01/24 09:50 07/01/24 09:30 94 20 100 07/01/24 09:00 97.6 F 92 20 98/70 100 07/01/24 08:03 92 07/01/24 08:00 98 F 87 20 98/70 100 07/01/24 07:55 87 20 90/69 100 07/01/24 07:46 07/01/24 07:45 87 20 90/69 100 07/01/24 06:30 86 20 104/74 100 07/01/24 06:00 86 11 L 113/81 100 07/01/24 05:43 07/01/24 05:30 82 20 99/70 100 07/01/24 05:00 90 21 90/69 100 07/01/24 04:30 90 20 97/71 100 07/01/24 04:00 92 20 100/74 100 07/01/24 03:30 91 20 92/71 100 07/01/24 03:00 89 20 91/70 100 07/01/24 02:30 93 20 96/70 100 07/01/24 02:00 93 20 93/72 100 07/01/24 01:30 93 20 90/70 100 07/01/24 01:00 96 20 93/70 100 07/01/24 00:30 96 20 97/72 100 07/01/24 00:04 07/01/24 00:00 98 20 95/73 100 06/30/24 23:30 102 H 20 90/72 100 06/30/24 23:15 101 H 20 90/72 100 06/30/24 23:00 101 H 20 99/74 100 06/30/24 22:53 115 H 20 99/88 100 06/30/24 22:42 108 H 20 96/73 100 06/30/24 21:45 113 H 20 106/86 100 06/30/24 21:41 06/30/24 21:21 102 H 20 135/93 100 06/30/24 21:15 98.5 F 105 H 20 135/106 100 06/30/24 21:00 93 20 136/92 100 06/30/24 20:45 86 20 146/92 100 06/30/24 20:28 98.5 F 92 20 146/92 100 06/30/24 20:23 06/30/24 20:20 115 H 18 126/93 100 06/30/24 20:13 105 H 18 135/98 99 FiO2 07/01/24 12:39 07/01/24 12:33 40 07/01/24 11:48 40 07/01/24 11:30 07/01/24 10:30 07/01/24 10:00 07/01/24 09:50 40 07/01/24 09:30 07/01/24 09:00 40 07/01/24 08:03 07/01/24 08:00 07/01/24 07:55 07/01/24 07:46 40 07/01/24 07:45 40 07/01/24 06:30 07/01/24 06:00 07/01/24 05:43 40 07/01/24 05:30 07/01/24 05:00 07/01/24 04:30 07/01/24 04:00 40 07/01/24 03:30 40 07/01/24 03:00 40 07/01/24 02:30 07/01/24 02:00 07/01/24 01:30 07/01/24 01:00 07/01/24 00:30 07/01/24 00:04 40 07/01/24 00:00 06/30/24 23:30 06/30/24 23:15 06/30/24 23:00 06/30/24 22:53 06/30/24 22:42 06/30/24 21:45 06/30/24 21:41 40 06/30/24 21:21 06/30/24 21:15 06/30/24 21:00 06/30/24 20:45 06/30/24 20:28 06/30/24 20:23 100 06/30/24 20:20 06/30/24 20:13 Intake and Output 06/30/24 07/01/24 07/01/24 22:59 06:59 14:59 Intake Total 17.080 2299.684 844.420 Output Total 545 290 Balance 17.080 1754.684 554.420 Intake: IV 615 Sodium Chloride 0.9% 1, 600 000 ml @ 120 mls/hr IV . Q8H20M [facility] Rx#:[id number] pressure bag 15 Intake, IV Titration 17.080 2299.684 229.420 Amount Sodium Chloride 0.9% 1, 240 120 000 ml @ 120 mls/hr IV . Q8H20M [facility] Rx#:[id number] Sodium Chloride 0.9% 1, 500 000 ml @ 120 mls/hr IV . Q8H20M [facility] Rx#:[id number] Sodium Chloride 0.9% 1, 1000 000 ml @ 999 mls/hr IV . Q1H1M [facility] Rx#:[id number] Sodium Chloride 0.9% 500 500 ml 500 ml @ 999 mls/hr IV .Q31M [facility] Rx#:[id number] propofoL 1,000 mg In 17.080 59.684 109.420 Empty Bag 1 bag @ 15 MCG/ KG/MIN 6.94 mls/hr IV . [id number] [facility] Rx#:[id number] Oral 0 Output: Urine 545 250 Other 40 Other: Weight 77.111 kg ABP, PAP, CO, CI - Last 8 Hours Arterial Blood Pressure 90/58 General: Lying in bed and does not appear in acute distress. Lung: Intubated on a ventilator. Neuro: Limited. Is on IV Propofol and received IV Nimbex 10mg once. Patient is comatose GCS 3 (E1, VT1, M1). I had to manually open eyes and primary gaze is midline. Pupils are round, pi npoint bilaterally. Is breathing over the vent when I went down on A/C from 20 to 14 is breathing at 16. Otherwise rest is limited. No spontaneous movement. Decrease tone throughout. Results - Laboratory Findings CBC and BMP: 07/01/24 06:58 07/01/24 07:40 Abnormal Lab Findings: Abnormal Labs 06/30/24 06/30/24 06/30/24 20:27 20:27 20:31 RBC Hgb 9.9 L Hct 33.6 L MCV 75.7 L MCH 22.4 L MCHC 29.6 L RDW 17.0 H Plt Count 777 H ABG pH ABG pCO2 ABG pO2 ABG O2 Saturation Hemoglobin Sodium 132 L Potassium Chloride Carbon Dioxide 20 L BUN 7 L Creatinine 0.63 L Glucose 121 H Plasma Lactic Acid Jay Calcium Magnesium Iron TIBC % Saturation Transferrin Ferritin Alkaline Phosphatase 130 H Creatine Kinase 30 L Total Protein Albumin 2.9 L HDL Cholesterol Urine Protein Trace H Urine Opiates Screen Detected H Ur Oxycodone Screen Detected H Urine Cocaine Screen Detected H 06/30/24 06/30/24 07/01/24 21:23 23:20 05:37 RBC 2.31 L Hgb 5.2 L* D Hct 18.0 L* MCV 77.9 L MCH 22.5 L MCHC 28.9 L RDW 17.2 H Plt Count ABG pH 7.49 H ABG pCO2 29 L ABG pO2 >420 H ABG O2 Saturation >100.0 H Hemoglobin 9.4 L Sodium Potassium Chloride Carbon Dioxide BUN Creatinine Glucose Plasma Lactic Acid Jay 3.0 H* Calcium Magnesium Iron TIBC % Saturation Transferrin Ferritin Alkaline Phosphatase Creatine Kinase Total Protein Albumin HDL Cholesterol Urine Protein Urine Opiates Screen Ur Oxycodone Screen Urine Cocaine Screen 07/01/24 07/01/24 07/01/24 06:58 07:40 07:40 RBC 3.58 L Hgb 7.8 L D Hct 26.6 L MCV 74.5 L MCH 21.8 L MCHC 29.2 L RDW 17.0 H Plt Count 508 H ABG pH ABG pCO2 ABG pO2 ABG O2 Saturation Hemoglobin Sodium Potassium Chloride Carbon Dioxide BUN Creatinine Glucose Plasma Lactic Acid Jay Calcium Magnesium Iron 10 L TIBC 93 L % Saturation 10.75 L Transferrin 66.4 L 66.5 L Ferritin 373.0 H Alkaline Phosphatase Creatine Kinase Total Protein Albumin HDL Cholesterol Urine Protein Urine Opiates Screen Ur Oxycodone Screen Urine Cocaine Screen 07/01/24 07/01/24 07:40 10:35 RBC Hgb Hct MCV MCH MCHC RDW Plt Count ABG pH ABG pCO2 ABG pO2 ABG O2 Saturation Hemoglobin Sodium 135 L Potassium 3.2 L Chloride 108 H Carbon Dioxide 21 L BUN 5 L Creatinine 0.58 L Glucose Plasma Lactic Acid Jay Calcium 7.5 L Magnesium 1.5 L Iron TIBC % Saturation Transferrin Ferritin Alkaline Phosphatase Creatine Kinase Total Protein 5.5 L Albumin 2.0 L HDL Cholesterol 23.20 L Urine Protein Urine Opiates Screen Ur Oxycodone Screen Urine Cocaine Screen Assessment and Plan Assessment: This is a 68-year-old gentleman who presents to the emergency department via EMS because of left-sided weakness dysarthria, then became unresponsive with left gaze deviation. Symptoms began yesterday at 2 PM that was noted by his cousin then he was taken to a doctor's appointment at 6 3 that is when his left-sided weakness and other symptoms happened. His urine drug screen was positive for cocaine, oxycodone and opiates. His CT angiography shows significant bilateral CTA stenosis Likely acute ischemic stroke the patient has multiple risk factors. No IV thrombolytics since the patient is on IV Lovenox and the risk outweigh the benefit Episode of unresponsiveness due to multifactorial could be due to above as well as polysubstance abuse Significant left ICA stenosis, the right is 75% stenosis in the left is 90% stenosis on CT angiography. This is symptomatic. Acute respiratory failure and the patient was intubated on a ventilator since inability to protect his airway History is advanced stage IV lung cancer History of recurrent right-sided pleural effusion Hypertension History of hyperlipidemia Underlying history of diabetes mellitus Polysubstance abuse Plan: Patient was on aspirin 300 mg once and was sent Plavix 75 mg once per the stroke attending recommendation. Today was started on aspirin 81 mg. During this hospital visit he was started on heparin drip because of history of DVT. Will get a repeat CT of the head to rule out any significant stroke especially since he is on heparin drip. Once the patient is extubated will obtain MRI of the brain. Patient is on Lipitor 80 mg nightly for secondary stroke fluxes An EEG was ordered and preliminary does not show any active seizure or discharges so I canceled the Keppra that was started yesterday since his symptoms are likely due to his stroke. 2D echo was ordered and is pending Vascular surgery team is consulted. Recommend permissive hypertension and treat systolic if >210 and diastolic if >110. Continue neurochecks Cardiac monitoring PT, OT and [employer] are consulted Will defer the rest of the medical management to primary other specialist For DVT prophylaxis the patient is on heparin drip Plan discussed with the primary team as well as the ICU nurse Thank for the consultation Dr. Nunez will resume neurology service tomorrow and Dr. Mcfadden will resume this Thursday A.M. ADDENDUM: CT of the head is reported as new acute/subacute ischemia involving the right parietal temporal watershed region and the right frontal lobe. Spoke with the primary team and we agreed to hold off on the heparin drip because of the risk of hemorrhagic conversion. Recommend starting the patient on Plavix 75 mg daily. Recommend repeating CT of the head tomorrow AM. Time with Patient: Greater than 30
[2024-07-01] MEDS ORDERED: Magnesium Replacement Protocol 1 EACH MISC MISCELLANE PRN (13:22)
--- NOTE | 2024-07-01 13:29 | CT ---
EXAMINATION TYPE: CT brain wo con CT DLP: 1197.4 mGycm, Automated exposure control for dose reduction was used. DATE OF EXAM: 07/01/2024 1:15 PM COMPARISON: CT brain 06/30/2024, CTA head and neck 06/30/2024 CLINICAL INDICATION:Male, 68 years old with history of stroke, ams TECHNIQUE: Brain: Multiple axial CT images of the brain were obtained without IV contrast. . Coronal and sagitta l reformats reviewed. FINDINGS: Brain: Extra-axial spaces: No abnormal extra-axial fluid collections. Ventricular system: Within normal limits Cerebral parenchyma: No acute intraparenchymal hemorrhage. There is new hypodensity with loss of miranda -white differentiation within the right parietotemporal watershed region and the right frontal lobe. There is effacement of peripheral sulci within the right parietotemporal region. The remaining miranda-w tanna junction is well differentiated. Scattered hypoattenuating areas are seen within the periventric ular white matter. Cerebellum: Unremarkable. Mass effect: No evidence of midline shift. Intracranial vasculature: Atherosclerotic calcifications of the intracranial vessels. Soft tissues: Normal. Calvarium/osseous structures: No depressed skull fracture. Paranasal sinuses and mastoid air cells: Mastoid air cells are clear. Mild mucosal thickening of the left sphenoid sinus. The remaining paranasal sinuses are clear. Visualized orbits: Orbital contents are intact. IMPRESSION: 1. New acute/subacute ischemia involving the right parietotemporal watershed region and right frontal lobe. No evidence for intracranial hemorrhage. 2. Nonspecific white matter changes, likely secondary to chronic small vessel ischemic disease. Findings called to and discussed with Dr. Jame Cerda at 1:26 PM on 07/01/2024. [facility], , 07/01/2024 1:27 PM
[2024-07-01] MEDS: MAGNESIUM SULFATE-D5W PMX 1 GM in DEXTROSE/WATER 1 100ML.BAG IVPB SCH (13:57)
--- NOTE | 2024-07-01 14:04 | P.PN ---
Subjective Progress Note Date: 07/01/24 Principal diagnosis: Acute cerebrovascular accident; Acute encephalopathy Patient is a 68 year old male with stage IV lung cancer on immunotherapy, diabetes mellitus, hypertension, hyperlipidemia, recent upper extremity DVT on blood thinner at home, GERD presented to the ED with left sided weakness and altered mental status. HPI obtained from ED staff and documentation. Patient is sedated, intubated and mechanically ventilated therefore unable to provide any history and no family with him at this time. Patient resides at [facility]. Patient was at his doctor's appointment earlier today around 2 pm when he started experiencing slurring of speech. He was accompanied by his cousin at the time. Upon returning from the doctor's office, family reported that patient would put his head out of the car window and he also started experiencing weakness of the left side of the body. EMS was called at this point. Patient then became unresponsive. Upon gaining consciousness, he was still incoherent and mumbling. EMS reported the patient having a forced gaze to the left. On arrival at the ED, he was alert but was unresponsive. Moreover, the patient was recently admitted at our facility a month ago for generalized weakness and was discharged home with [facility]. The patient has a recent history of upper extremity DVT and is currently on Lovenox at home. The patient follows up with oncologist at [facility] for stage IV lung cancer currently on immunotherapy. ED documentation reviewed. Patient didn't receive Tenecteplase as he was on Lovenox at home for recent upper extremity DVT but received Clopidogrel 75 mg PO and Aspirin 300 mg rectal. The patient was unresponsive therefore was given Etomidate 20 mg IVP and Rocuronium 50 mg IV and was intubated. He was given 0.9 normal saline bolus and Ondansetron 4mg IVP and was placed on Propofol drip. Vitals on admission T 98.5 F, ID 105 bpm, RR 18, BP 135/98, O2 sat 99% on room air EKG independently interpreted as sinus rhythm, right bundle branch block, T wave inversion in V3, rate 88 bpm, QTc 465 ms Chest x-ray shows Large right pleural effusion, endotracheal tube approximately 1.8 cm from the rosalia, enteric tube in appropriate position Brain CT shows no acute intracranial process specific white matter changes likely secondary to chronic small vessel ischemic disease CT angio head & neck shows no significant intracranial vascular abnormality, fibrofatty thrombus within bilateral proximal internal carotid arteries creating 75% stenosis on right and 90% stenosis on left, partially visualized large loc ulated left pleural effusion Labs on admission show WBC 9.7, hemoglobin 9.9, MCV 75.7, RDW 17, platelet count 777, INR 1.1, sodium 132, creatinine 0.63, ALP 130, CK 30, albumin 2.9 Troponin I less than 0.012 UA shows trace protein Urine toxicology detected opiates, oxycodone, cocaine Respiratory panel is negative ABG shows pH 7.49, pCO2 29, pO2 > 420 07/01/2024 patient seen and examined at bedside. Patient still in the ICU on intubation, mechanical ventilation and sedation. No acute events overnight. WBC 8.6 hemoglobin 7.8 hematocrit 26.6 platelet count 508,000 sodium 135 potassium 3.2 chloride 108 bicarb 21 BUN 5 creatinine 0.58 glucose 77 calcium 7.5 total bilirubin 0.4 AST 18 ALT 11 alk phos 97 Lipid panel showed triglycerides 71 cholesterol 62 LDL 24 HDL 23 lactic acid 2 Review of systems: Pertinent positives and negatives as discussed in HPI, a complete review of systems was performed and all other systems are negative. Pertinent imaging and labs reviewed. Physical examination: Vital signs reviewed General: sedated, intubated and mechanically ventilated Derm: no unusual rashes/lesions, warm Head: atraumatic, normocephalic, symmetric Eyes: EOMI, anicteric sclera, pupils equal round reactive to light ENT: Nose and ears atraumatic Neck: No cervical lymphadenopathy, trachea midline, supple Mouth: no lip lesion, mucus membranes moist Cardiovascular: S1S2 reg, no murmur Lungs: CTA bilateral, no rhonchi, no rales, no accessory muscle use Abdominal: soft, nontender to palpation, no guarding Ext: muscle strength 5 out of 5 in all 4 extremities grossly, no gross muscle a trophy, no contractures, positive dorsalis pedis pulse bilateral, trace bipedal edema Neuro: Unable to assess Psych: Unable to assess Assessment/Plan: Patient is a 68 year old male with stage IV lung cancer on immunotherapy, diabetes mellitus, hypertension, hyperlipidemia, recent upper extremity DVT on blood thinner at home, GERD presented to the ED with left sided weakness and altered mental status. Active: #. Acute ischemic stroke #. Acute encephalopathy, likely secondary to CVA #. Bilateral carotid artery stenosis Brain CT shows no acute intracranial process specific white matter changes likely secondary to chronic small vessel ischemic disease CT angio head & neck shows no significant intracranial vascular abnormality, fibrofatty thrombus within bilateral proximal internal carotid arteries creating 75% stenosis on right and 90% stenosis on left, partially visualized large loculated left pleural effusion Urine toxicology detected opiates, oxycodone, cocaine ABG shows pH 7.49, pCO2 29, pO2 > 420 Permissive hypertension, hold home antihypertensives Discontinue Levetiracetam 1000 mg IV Q12HR Initiated Heparin drip EEG, acetaminophen level, alcohol level, ammonia level salicylate level, A1c pending TSH, B12 pending lactic acid 2 Lipid panel showed triglycerides 71 cholesterol 62 LDL 24 HDL 23 Neurochecks and Train of four Continue Telemetry monitoring Patient moved to ICU and sedated, intubated and mechanically intubated at assist control rate of 20, tidal volume 500, FiO2 40%, PEEP 5 Discussed management with neurology. Repeat CT today to check for hemorrhagic transformation PT, OT, SIGNALER consulted Vascular surgery consulted #. Chronic large right pleural effusion Pulmnology consulted Likely in the setting of lung cancer #. Hyponatremia 0.9 normal saline at 100 m/hr Monitor BMP #. Hypokalemia Potassium 3.2 today 40 mEq potassium p.o. given today Check mag Check potassium after repletion Monitor BMP #. Elevated alkaline phosphatase, resolved ALP 97 today Chronic: #. Microcytic anemia, at baseline #. Thrombocytosis, likely secondary to malignancy Hemoglobin dropper to 7.8. Transfuse if Hb<7 Check iron studies Monitor CBC #. Stage IV lung cancer, on immunotherapy Capmatinib at home #. Non insulin dependent diabetes mellitus #. Hypertension #. Hyperlipidemia #. Anxiety/Depression Hold home meds Permissive hypertension insulin sliding scale #. History of right upper extremity DVT Discontinue eliquis 5 mg po bid IV heparin drip initiated F: 0.9 normal saline at 120 ml/hr E: Replete as required N: NPO A: Bed rest DVT prophylaxis: Heparin drip GI prophylaxis: Pantoprazole 40 mg IVP daily CODE STATUS: FULL CODE Mariah Santos MD PGY-1/Event Sales Representative Dictation was produced using [employer] dictation software. please excuse any grammatical, word or spelling errors. Will discontinue heparin drip for now, repeat CT head tomorrow as patient is at high risk for hemorrhagic conversion. Risk update the benefits of using heparin drip at the moment. I have seen and evaluated the patient today. Discussed with the resident and agree with the residents finding and plan as documented in the resident's note. Changes highlighted in blue font. Objective - Vital Signs Vital signs: Vital Signs Temp 98.5 F 06/30/24 21:15 Pulse 86 07/01/24 06:30 Resp 20 07/01/24 06:30 BP 104/74 07/01/24 06:30 Pulse Ox 100 07/01/24 06:30 FiO2 40 07/01/24 05:43 Intake & Output 06/30/24 06/30/24 07/01/24 06:59 18:59 06:59 Intake Total 2316.764 Output Total 545 Balance 1771.764 Weight 77.111 kg Intake: Intake, IV Titration 2316.764 Amount Sodium Chloride 0.9% 1, 240 000 ml @ 120 mls/hr IV . Q8H20M [facility] Rx#:[id number] Sodium Chloride 0.9% 1, 500 000 ml @ 120 mls/hr IV . Q8H20M [facility] Rx#:[id number] Sodium Chloride 0.9% 1, 1000 000 ml @ 999 mls/hr IV . Q1H1M [facility] Rx#:[id number] Sodium Chloride 0.9% 500 500 ml 500 ml @ 999 mls/hr IV .Q31M [facility] Rx#:[id number] propofoL 1,000 mg In 76.764 Empty Bag 1 bag @ 15 MCG/ KG/MIN 6.94 mls/hr IV . [id number] [facility] Rx#:[id number] Oral 0 Output: Urine 545 - Labs CBC & Chem 7: 07/01/24 06:58 07/01/24 07:40 Labs: Abnormal Lab Results - Last 24 Hours (Table) 06/30/24 06/30/24 06/30/24 Range/Units 20:27 20:27 20:31 Hgb 9.9 L (13.0-17.5) gm/dL Hct 33.6 L (39.0-53.0) % MCV 75.7 L (80.0-100.0) fL MCH 22.4 L (25.0-35.0) pg MCHC 29.6 L (31.0-37.0) g/dL RDW 17.0 H (11.5-15.5) % Plt Count 777 H (150-450) k/uL ABG pH (7.35-7.45) ABG pCO2 (35-45) mmHg ABG pO2 (83-108) mmHg ABG O2 Saturation (94-97) % Hemoglobin (13.0-17.5) gm/dL Sodium 132 L (137-145) mmol/L Carbon Dioxide 20 L (22-30) mmol/L BUN 7 L (9-20) mg/dL Creatinine 0.63 L (0.66-1.25) mg/dL Glucose 121 H (74-99) mg/dL Plasma Lactic Acid Jay (0.7-2.0) mmol/L Alkaline Phosphatase 130 H (38-126) U/L Creatine Kinase 30 L (55-170) U/L Albumin 2.9 L (3.5-5.0) g/dL Urine Protein Trace H (Negative) Urine Opiates Screen Detected H (NotDetected) Ur Oxycodone Screen Detected H (NotDetected) Urine Cocaine Screen Detected H (NotDetected) 06/30/24 06/30/24 Range/Units 21:23 23:20 Hgb (13.0-17.5) gm/dL Hct (39.0-53.0) % MCV (80.0-100.0) fL MCH (25.0-35.0) pg MCHC (31.0-37.0) g/dL RDW (11.5-15.5) % Plt Count (150-450) k/uL ABG pH 7.49 H (7.35-7.45) ABG pCO2 29 L (35-45) mmHg ABG pO2 >420 H (83-108) mmHg ABG O2 Saturation >100.0 H (94-97) % Hemoglobin 9.4 L (13.0-17.5) gm/dL Sodium (137-145) mmol/L Carbon Dioxide (22-30) mmol/L BUN (9-20) mg/dL Creatinine (0.66-1.25) mg/dL Glucose (74-99) mg/dL Plasma Lactic Acid Jay 3.0 H* (0.7-2.0) mmol/L Alkaline Phosphatase (38-126) U/L Creatine Kinase (55-170) U/L Albumin (3.5-5.0) g/dL Urine Protein (Negative) Urine Opiates Screen (NotDetected) Ur Oxycodone Screen (NotDetected) Urine Cocaine Screen (NotDetected)
[2024-07-01] MEDS: NOREPINEPHRINE 4 MG in SODIUM CHLORIDE 0.9% 250 ML IV SCH (15:15)
--- NOTE | 2024-07-01 17:15 | P.PN ---
Progress Note - Text Progress Note Date: 07/01/24 Had a discussion with . There is a concern for thrombus in bilateral carotids possible leading to strokes. Vascular surgery recommending transfer for neurointerventional. However, due to his poor prognosis as well as stage IV lung cancer, would prefer to keep the patient in the hospital to see if he improves. She understands that he could potentially have further strokes due to thrombi. Will restart low intensity heparin drip. Will keep aspirin, discontinue Plavix.
[2024-07-01 17:32] LABS: Glucose,Whole Blood 103 mg/dL (70-110)
[2024-07-01] MEDS: POTASSIUM BICARBONATE/CIT AC 20 MEQ TABLET.EFF NG-TUBE SCH (17:40)
[2024-07-01 18:00] LABS: Glucose,Whole Blood 142 mg/dL (70-110)
[2024-07-01 18:08] LABS: INR 1.1 (<1.2); Partial Thromboplastin Time 26.5 sec (22.0-30.0); Prothrombin Time 11.8 sec (10.0-12.5)
[2024-07-01] MEDS: ATORVASTATIN 80 MG TAB PO SCH (20:00)
[2024-07-01] MEDS: MIRTAZAPINE 15 MG TAB PO SCH (20:49)
[2024-07-02 00:15] LABS: Glucose,Whole Blood 131 mg/dL (70-110)
[2024-07-02 01:15] LABS: Anisocytosis Slight; HCT 29.3 % (39.0-53.0); HGB 8.7 gm/dL (13.0-17.5); Hypochromasia Marked; MCH 22.1 pg (25.0-35.0); MCHC 29.7 g/dL (31.0-37.0); MCV 74.5 fL (80.0-100.0); Mean Platelet Volume 7.8; Microcytosis Moderate; Platelet Count 654 k/uL (150-450); Poikilocytosis Slight; RBC 3.93 m/uL (4.30-5.90); RDW 17.2 % (11.5-15.5)
[2024-07-02 01:24] LABS: African American GFR (CKD) >90 (>60 ml/min/1.73 sqM); Anion Gap 8 mmol/L; Blood Urea Nitrogen 4 mg/dL (9-20); Calcium 7.7 mg/dL (8.4-10.2); Carbon Dioxide 16 mmol/L (22-30); Chloride 111 mmol/L (98-107); Glucose 144 mg/dL (74-99); Non-African American GFR(CKD) >90 (>60 ml/min/1.73 sqM); Potassium 3.7 mmol/L (3.5-5.1); Sodium 135 mmol/L (137-145)
[2024-07-02] MEDS: POTASSIUM BICARBONATE/CIT AC 20 MEQ TABLET.EFF NG-TUBE SCH ×2 (02:57→07:25)
--- NOTE | 2024-07-02 03:20 | EEG ---
ELECTROENCEPHALOGRAM REPORT CLINICAL HISTORY: This is a 68-year-old gentleman with reported episode of unresponsiveness, who has continuous confusion. The video EEG is obtained to evaluate for seizure epileptiform activity. RELEVANT MEDICATIONS: Keppra. Nimbex. IV propofol. EEG TYPE: This is a routine 21-channel EEG with video using the 10/20 electrode placement system. DESCRIPTION: It was hard to assess the background really well because of the diffuse myogenic artifact, but it appears 8 hertz activity intermixed with delta activity. There is no focal slowing. Interictal and ictal with the limitation. There is no seizure or discharges noted. ACTIVATION PROCEDURE: Photic stimulation and hyperventilation are not performed. CLINICAL INTERPRETATION: This is a limited routine EEG because of diffuse myogenic artifact, but with the limitation, the background appears mildly encephalopathic. There is no clear epileptiform discharge or seizure on the EEG. Clinical correlation is recommended. JACKSON / BLAKE: [id number] /
[2024-07-02 05:04] LABS: ABG Base Excess -4.1 mmol/L; ABG HCO3 18 mmol/L (21-25); ABG PCO2 25 mmHg (35-45); ABG PH 7.48 (7.35-7.45); ABG PO2 172 mmHg (83-108); ABG TCO2 19 mmol/L (19-24); Allen Test Performed? Yes
--- NOTE | 2024-07-02 05:13 | XR ---
EXAMINATION TYPE: XR chest 1V portable DATE OF EXAM: 07/02/2024 CLINICAL HISTORY: Difficulty breathing progress study. TECHNIQUE: Single AP portable semiupright view of the chest is obtained. COMPARISON: Chest x-ray from one day earlier and older studies. FINDINGS: Stable endotracheal and orogastric tubes. Stable left-sided subclavian central venous cath eter. Completely opacified right hemithorax redemonstrated. Silhouetting right heart border again seen. Lef t lung remains clear. Osseous structures are intact. IMPRESSION: Opacified right hemithorax remains present consistent with acute infiltrate and/or atelec tasis and possible right-sided pleural effusion. No significant change from one day earlier. [facility], , 07/02/2024 5:11 AM
[2024-07-02 05:41] LABS: Glucose,Whole Blood 164 mg/dL (70-110)
[2024-07-02 05:58] LABS: Anisocytosis Slight; Basophils % (A) 0 %; Eosinophils % (A) 0 %; HCT 29.1 % (39.0-53.0); HGB 8.8 gm/dL (13.0-17.5); Hypochromasia Marked; Lymphocytes # (A) 0.7 k/uL (1.0-4.8); Lymphocytes % (A) 5 %; MCH 22.6 pg (25.0-35.0); MCHC 30.4 g/dL (31.0-37.0); MCV 74.4 fL (80.0-100.0); Mean Platelet Volume 7.3; Microcytosis Moderate; Monocytes % (A) 7 %; Neutrophils # (A) 13.3 k/uL (1.3-7.7); Neutrophils % (A) 87 %; Platelet Count 659 k/uL (150-450); Poikilocytosis Slight; RBC 3.91 m/uL (4.30-5.90); WBC 15.2 k/uL (3.8-10.6)
[2024-07-02 06:02] LABS: INR 1.2 (<1.2); Prothrombin Time 12.8 sec (10.0-12.5)
[2024-07-02 06:17] LABS: African American GFR (CKD) >90 (>60 ml/min/1.73 sqM); Anion Gap 7 mmol/L; Blood Urea Nitrogen 4 mg/dL (9-20); Calcium 7.6 mg/dL (8.4-10.2); Carbon Dioxide 19 mmol/L (22-30); Chloride 111 mmol/L (98-107); Glucose 159 mg/dL (74-99); Magnesium 1.6 mg/dL (1.6-2.3); Non-African American GFR(CKD) >90 (>60 ml/min/1.73 sqM); Potassium 3.6 mmol/L (3.5-5.1); Sodium 137 mmol/L (137-145)
--- NOTE | 2024-07-02 07:18 | P.PN ---
Subjective Progress Note Date: 07/02/24 Principal diagnosis: Respiratory failure, CVA. Pulmonary consult dated July 01, 2024. 68-year-old black male with a history of multiple medical problems including advanced lung cancer, right pleural effusion, hyperlipidemia, hypertension, GERD, type 2 diabetes. The patient presented to the emergency department, at about 8:00 PM on June 30, with strokelike symptoms. He apparently was found to have slurred speech. He apparently became incoherent, and was apparently struggling to move the left side of his body. EMS was called and he was brought into the emergency department. The patient apparently was not able to protect his airway, and required intubation and mechanical ventilation. I did speak to Dr. Rodriguez in the emergency department. The patient is transferred to the intensive care unit, for further monitoring and management. The patient's drug screen was positive for opiates and cocaine. That may have had some effect on his neurologic issues. He is currently on volume assist-control, rate 20, tidal volume 500, FiO2 40%, PEEP of 5. Blood gases initially showed a pO2 that was greater than 420, pCO2 29, pH of 7.49. The patient is on propofol at 30 mcg/kg/min, saline at 120 cc an hour. When the patient came to the intensive care unit, we placed a right radial art line, a left subclavian triple-lumen catheter, and because his endotracheal tube was defective, we replaced the endotracheal tube with a #8 endotracheal tube. Current laboratory data includes a white count of 8.6, hemoglobin 7.8, hematocrit 26.6, platelet count of 508,000 . Sodium 135, potassium 3.2, chlorides 108, CO2 21, BUN 5, and creatinine 0.58. Calcium 7.5, magnesium 1.5. Albumin 2. Urine is negative. Drug screen was positive for opiates, oxycodone, and cocaine. Viral studies were negative. Chest x-ray showed an opacified right hemithorax. Progress note dated July 02, 2024. 68-year-old black male seen today in room 255. His , flew up from [place] last night, and is at the bedside. The patient is currently on volume assist- control, rate 20, tidal volume 500, FiO2 40%, PEEP of 5. Blood gases show pO2 172, pCO2 25, pH of 7.48. The FiO2 was reduced down to 30%. The patient is on propofol at 20 mcg/kg/min, norepinephrine at 33 mcg/min, heparin via weight- based protocol, and saline at 120 cc an hour. The patient CT scan of the brain revealed a an evolving CVA, involving the right side, with left-sided weakness. The patient will have tube feeds started. In addition, chest x-ray reveals an opacified right hemithorax, and bronchoscopy will be done this morning. White count 15.2, hemoglobin 8.8, hematocrit 29.1, platelet count of 659,000. PT 12.8, INR 1.2. Sodium 137, potassium 3.6, chlorides 111, CO2 19, BUN 4, creatinine 0.47. Glucose was 164. Calcium 7.6. Magnesium 1.6. Chest x-ray reveals a right opacified hemithorax. CT scan of the reveals acute/subacute ischemia in the right parietotemporal area, and right frontal lobe. Objective - Vital Signs Vital signs: Vital Signs Temp 98.4 F 07/02/24 04:00 Pulse 115 H 07/02/24 06:45 Resp 27 H 07/02/24 06:45 BP 134/93 07/02/24 06:45 Pulse Ox 100 07/02/24 06:45 FiO2 30 07/02/24 05:06 Intake & Output 07/01/24 07/02/24 07/02/24 18:59 06:59 18:59 Intake Total 8319.910 0368.827 Output Total 495 560 Balance 9530.922 1245.827 Weight 66.1 kg 68.8 kg Intake: IV 1353 1476 Sodium Chloride 0.9% 1, 1320 1440 000 ml @ 120 mls/hr IV . Q8H20M [facility] Rx#:[id number] pressure bag 33 36 Intake, IV Titration 352.394 642.827 Amount Heparin Sod,Pork in 0.45% 3.569 59.093 NaCl 25,000 unit In 0.45 % NaCl 1 250ml.bag @ 12 UNITS/KG/HR 7.932 mls/hr IV .Q24H [facility] Rx#: [id number] Heparin Sod,Pork in 0.45% 29.764 NaCl 25,000 unit In 0.45 % NaCl 1 250ml.bag @ 12 UNITS/KG/HR 9.253 mls/hr IV .Q24H [facility] Rx#: [id number] Norepinephrine 4 mg In 46.960 522.002 Sodium Chloride 0.9% 250 ml @ 0.03 MCG/KG/MIN 8. 814 mls/hr IV .Q24H [facility] Rx#:[id number] Sodium Chloride 0.9% 1, 120 000 ml @ 120 mls/hr IV . Q8H20M [facility] Rx#:[id number] propofoL 1,000 mg In 152.101 61.732 Empty Bag 1 bag @ 15 MCG/ KG/MIN 6.94 mls/hr IV . [id number] [facility] Rx#:[id number] Output: Urine 455 560 Other 40 Other: Voiding Method Indwelling Catheter Indwelling Catheter ABP, PAP, CO, CI - Last Documented Arterial Blood Pressure 136/77 - Exam No acute distress, sedated, initially seen in the emergency department, and then in the intensive care unit, currently on propofol. HEENT examination is grossly unremarkable. Patient has an orally placed endotracheal tube. Neck supple. Full range of motion. No adenopathy thyromegaly or neck vein distention. Cardiovascular examination reveals regular rhythm rate. S1-S2 normal. No S3 or S4. No discernible murmur noted. Heart sounds are distant. Lungs reveal mild scattered rhonchi. No wheezes or crackles. Breath sounds are diminished on the right side. Abdomen soft without bowel sounds. Extremities are intact. No cyanosis clubbing or edema. Skin is without rash or lesion. Neurologic examination cannot be adequately assessed at this time. - Labs CBC & Chem 7: 07/02/24 05:41 07/02/24 05:41 Labs: Abnormal Lab Results - Last 24 Hours (Table) 07/01/24 07/01/24 07/01/24 Range/Units 06:58 07:40 07:40 WBC (3.8-10.6) k/uL RBC 3.58 L (4.30-5.90) m/uL Hgb 7.8 L D (13.0-17.5) gm/dL Hct 26.6 L (39.0-53.0) % MCV 74.5 L (80.0-100.0) fL MCH 21.8 L (25.0-35.0) pg MCHC 29.2 L (31.0-37.0) g/dL RDW 17.0 H (11.5-15.5) % Plt Count 508 H (150-450) k/uL Neutrophils # (1.3-7.7) k/uL Lymphocytes # (1.0-4.8) k/uL PT (10.0-12.5) sec INR (<1.2) APTT (22.0-30.0) sec ABG pH (7.35-7.45) ABG pCO2 (35-45) mmHg ABG pO2 (83-108) mmHg ABG HCO3 (21-25) mmol/L ABG O2 Saturation (94-97) % Hemoglobin (13.0-17.5) gm/dL Sodium (137-145) mmol/L Potassium (3.5-5.1) mmol/L Chloride (98-107) mmol/L Carbon Dioxide (22-30) mmol/L BUN (9-20) mg/dL Creatinine (0.66-1.25) mg/dL Glucose (74-99) mg/dL POC Glucose (mg/dL) (70-110) mg/dL Calcium (8.4-10.2) mg/dL Magnesium (1.6-2.3) mg/dL Iron 10 L (65-175) UG/DL TIBC 93 L (228-460) UG/DL % Saturation 10.75 L (15.00-50.00) Transferrin 66.4 L 66.5 L (204.0-354.0) mg/dL Ferritin 373.0 H (22.0-322.0) ng/mL Total Protein (6.3-8.2) g/dL Albumin (3.5-5.0) g/dL HDL Cholesterol (40.00-60.00) mg/dL 07/01/24 07/01/24 07/01/24 Range/Units 07:40 10:35 17:58 WBC (3.8-10.6) k/uL RBC (4.30-5.90) m/uL Hgb (13.0-17.5) gm/dL Hct (39.0-53.0) % MCV (80.0-100.0) fL MCH (25.0-35.0) pg MCHC (31.0-37.0) g/dL RDW (11.5-15.5) % Plt Count (150-450) k/uL Neutrophils # (1.3-7.7) k/uL Lymphocytes # (1.0-4.8) k/uL PT (10.0-12.5) sec INR (<1.2) APTT (22.0-30.0) sec ABG pH (7.35-7.45) ABG pCO2 (35-45) mmHg ABG pO2 (83-108) mmHg ABG HCO3 (21-25) mmol/L ABG O2 Saturation (94-97) % Hemoglobin (13.0-17.5) gm/dL Sodium 135 L (137-145) mmol/L Potassium 3.2 L (3.5-5.1) mmol/L Chloride 108 H (98-107) mmol/L Carbon Dioxide 21 L (22-30) mmol/L BUN 5 L (9-20) mg/dL Creatinine 0.58 L (0.66-1.25) mg/dL Glucose (74-99) mg/dL POC Glucose (mg/dL) 142 H (70-110) mg/dL Calcium 7.5 L (8.4-10.2) mg/dL Magnesium 1.5 L (1.6-2.3) mg/dL Iron (65-175) UG/DL TIBC (228-460) UG/DL % Saturation (15.00-50.00) Transferrin (204.0-354.0) mg/dL Ferritin (22.0-322.0) ng/mL Total Protein 5.5 L (6.3-8.2) g/dL Albumin 2.0 L (3.5-5.0) g/dL HDL Cholesterol 23.20 L (40.00-60.00) mg/dL 07/02/24 07/02/24 07/02/24 Range/Units 00:14 00:16 01:04 WBC 15.0 H (3.8-10.6) k/uL RBC 3.93 L (4.30-5.90) m/uL Hgb 8.7 L (13.0-17.5) gm/dL Hct 29.3 L (39.0-53.0) % MCV 74.5 L (80.0-100.0) fL MCH 22.1 L (25.0-35.0) pg MCHC 29.7 L (31.0-37.0) g/dL RDW 17.2 H (11.5-15.5) % Plt Count 654 H (150-450) k/uL Neutrophils # (1.3-7.7) k/uL Lymphocytes # (1.0-4.8) k/uL PT (10.0-12.5) sec INR (<1.2) APTT 33.7 H (22.0-30.0) sec ABG pH (7.35-7.45) ABG pCO2 (35-45) mmHg ABG pO2 (83-108) mmHg ABG HCO3 (21-25) mmol/L ABG O2 Saturation (94-97) % Hemoglobin (13.0-17.5) gm/dL Sodium (137-145) mmol/L Potassium (3.5-5.1) mmol/L Chloride (98-107) mmol/L Carbon Dioxide (22-30) mmol/L BUN (9-20) mg/dL Creatinine (0.66-1.25) mg/dL Glucose (74-99) mg/dL POC Glucose (mg/dL) 131 H (70-110) mg/dL Calcium (8.4-10.2) mg/dL Magnesium (1.6-2.3) mg/dL Iron (65-175) UG/DL TIBC (228-460) UG/DL % Saturation (15.00-50.00) Transferrin (204.0-354.0) mg/dL Ferritin (22.0-322.0) ng/mL Total Protein (6.3-8.2) g/dL Albumin (3.5-5.0) g/dL HDL Cholesterol (40.00-60.00) mg/dL 07/02/24 07/02/24 07/02/24 Range/Units 01:04 04:59 05:40 WBC (3.8-10.6) k/uL RBC (4.30-5.90) m/uL Hgb (13.0-17.5) gm/dL Hct (39.0-53.0) % MCV (80.0-100.0) fL MCH (25.0-35.0) pg MCHC (31.0-37.0) g/dL RDW (11.5-15.5) % Plt Count (150-450) k/uL Neutrophils # (1.3-7.7) k/uL Lymphocytes # (1.0-4.8) k/uL PT (10.0-12.5) sec INR (<1.2) APTT (22.0-30.0) sec ABG pH 7.48 H (7.35-7.45) ABG pCO2 25 L (35-45) mmHg ABG pO2 172 H (83-108) mmHg ABG HCO3 18 L (21-25) mmol/L ABG O2 Saturation 100.0 H (94-97) % Hemoglobin 8.9 L (13.0-17.5) gm/dL Sodium 135 L (137-145) mmol/L Potassium (3.5-5.1) mmol/L Chloride 111 H (98-107) mmol/L Carbon Dioxide 16 L (22-30) mmol/L BUN 4 L (9-20) mg/dL Creatinine 0.45 L (0.66-1.25) mg/dL Glucose 144 H (74-99) mg/dL POC Glucose (mg/dL) 164 H (70-110) mg/dL Calcium 7.7 L (8.4-10.2) mg/dL Magnesium (1.6-2.3) mg/dL Iron (65-175) UG/DL TIBC (228-460) UG/DL % Saturation (15.00-50.00) Transferrin (204.0-354.0) mg/dL Ferritin (22.0-322.0) ng/mL Total Protein (6.3-8.2) g/dL Albumin (3.5-5.0) g/dL HDL Cholesterol (40.00-60.00) mg/dL 07/02/24 07/02/24 07/02/24 Range/Units 05:41 05:41 05:41 WBC 15.2 H (3.8-10.6) k/uL RBC 3.91 L (4.30-5.90) m/uL Hgb 8.8 L (13.0-17.5) gm/dL Hct 29.1 L (39.0-53.0) % MCV 74.4 L (80.0-100.0) fL MCH 22.6 L (25.0-35.0) pg MCHC 30.4 L (31.0-37.0) g/dL RDW 17.0 H (11.5-15.5) % Plt Count 659 H (150-450) k/uL Neutrophils # 13.3 H (1.3-7.7) k/uL Lymphocytes # 0.7 L (1.0-4.8) k/uL PT 12.8 H (10.0-12.5) sec INR 1.2 H (<1.2) APTT (22.0-30.0) sec ABG pH (7.35-7.45) ABG pCO2 (35-45) mmHg ABG pO2 (83-108) mmHg ABG HCO3 (21-25) mmol/L ABG O2 Saturation (94-97) % Hemoglobin (13.0-17.5) gm/dL Sodium (137-145) mmol/L Potassium (3.5-5.1) mmol/L Chloride 111 H (98-107) mmol/L Carbon Dioxide 19 L (22-30) mmol/L BUN 4 L (9-20) mg/dL Creatinine 0.47 L (0.66-1.25) mg/dL Glucose 159 H (74-99) mg/dL POC Glucose (mg/dL) (70-110) mg/dL Calcium 7.6 L (8.4-10.2) mg/dL Magnesium (1.6-2.3) mg/dL Iron (65-175) UG/DL TIBC (228-460) UG/DL % Saturation (15.00-50.00) Transferrin (204.0-354.0) mg/dL Ferritin (22.0-322.0) ng/mL Total Protein (6.3-8.2) g/dL Albumin (3.5-5.0) g/dL HDL Cholesterol (40.00-60.00) mg/dL Microbiology - Last 24 Hours (Table) 07/01/24 07:59 Gram Stain - Preliminary Sputum Assessment and Plan Assessment: Acute respiratory failure, requiring intubation/mechanical ventilation, secondary to poor neurologic status, suspected CVA, and inability to protect airway, June 30, 2024. Right parietal/temporal acute/subacute ischemic CVA. History of advanced/stage IV lung cancer. History of recurrent right-sided pleural effusion. History of hyperlipidemia. History of hypertension. History of gastroesophageal reflux disease. History of diabetes mellitus. Polysubstance abuse. Plan: Plan dated July 01, 2024. The patient is seen initially in the emergency department, July 01, and then in the intensive care unit. A right radial arterial line was placed. A left subclavian vein triple-lumen catheter was placed and, the patient was reintubated because the cuff of the endotracheal tube was defective. All this was done in the intensive care unit, after the patient arrived. The patient's blood gases initially showed a pO2 that was greater than 420, pCO2 of 29, pH of 7.49. He remains on volume assist-control, rate 20, tidal volume 500, FiO2 40%, PEEP of 5. The patient is getting propofol at 30 mcg/kg/min. He is also getting saline at 120 cc an hour. Tube feedings will be started. Drug screen was positive for opiates, and cocaine. Labs, x-rays, and medications are reviewed. He was not a candidate for thrombolytic therapy, and all he got was Plavix, and aspirin. We will continue to follow make recommendations along the way. Apparently his is driving up to see him from [place]. Plan dated July 02, 2024. The patient is seen today in room 255. He remains on the mechanical ventilator. He has a completely opacified right chest. His most recent brain CT showed an acute/subacute parietal/temporal ischemic CVA. The is in the room. I disc ussed the case with her. The patient's FiO2 was reduced from 40% to 30% based on the pO2 of 172. The patient remains on propofol at 20 mcg/kg/min. The patient is on norepinephrine at 33 mcg/min. He is on heparin, via weight-based protocol. He is getting saline at 120 cc an hour. Tube feedings will be started today. Bronchoscopy will be performed today, to rule out mucous plugging on the right lung. Will also do an ultrasound of the right chest, to rule out pleural effusion. Prognosis is poor. We will continue to follow make recommendations where appropriate. His drug screen was positive for both opiates and cocaine. The was surprised to find out about that. Time with Patient: Greater than 30
[2024-07-02] MEDS: POTASSIUM CHLORIDE ER 20 MEQ TAB.ER PO SCH (07:22)
[2024-07-02] MEDS: MAGNESIUM SULFATE-D5W PMX 1 GM in DEXTROSE/WATER 1 100ML.BAG IVPB SCH (07:24)
--- NOTE | 2024-07-02 08:18 | US ---
EXAMINATION TYPE: US chest DATE OF EXAM: 07/02/2024 COMPARISON: XR 07/02/2024 CLINICAL INDICATION: Male, 68 years old with history of Markings for thoracentesis by pulmonary staff ; TECHNIQUE: Grayscale imaging of the chest. Targeted ultrasound of the posterior lower bilateral haylee thoraces FINDINGS: EXAM MEASUREMENTS: Right Pleural Effusion pocket size: Possible complex fluid pocket versus lung tissue with minimal fl uid seen, difficult to determine possible fluid pocket size. ?Consider additional imaging modality to evaluate. Left Pleural Effusion pocket size: 1.4 cm Left skin surface to fluid distance: 1.7 cm Right side NOT marked for possible thoracentesis outside the dept. Left side NOT marked for possible thoracentesis outside the dept. Pulmonologists are able to review the images in the patient?s EMR. Exam very limited, RN holding patient up in position for exam in ICU. IMPRESSIONS: Trace small pleural effusions. [facility], , 07/02/2024 8:16 AM
[2024-07-02] MEDS ORDERED: CLOPIDOGREL 75 MG TAB PO SCH (09:00)
[2024-07-02] MEDS: LIDOCAINE 2% INJ 20 MG/ML INTRATRACH ONE (09:32)
--- NOTE | 2024-07-02 09:34 | CT ---
EXAMINATION TYPE: CT brain wo con DATE OF EXAM: 07/02/2024 9:21 AM COMPARISON: 07/01/2024, 06/30/2024.. CLINICAL INDICATION: Male, 68 years old with history of stroke on heparin gtt, STROKE ON HEPARIN GTT TECHNIQUE: Brain: Axial CT images of the brain were obtained with coronal and sagittal reformats created and rev iewed. Contrast used: None. Oral contrast used: None. CT DLP: 1096.4 mGycm, Automated exposure control for dose reduction was used. FINDINGS: Brain: Extra-axial spaces: No abnormal extra-axial fluid collections. Ventricular system: Within normal limits Cerebral parenchyma: Multiple scattered hypoattenuating areas throughout the brain with miranda-white ma tter loss of differentiation. These are evolving from prior 07/01/2024 including bilateral frontal lo bes left basal ganglia, left caudate nucleus right temporal lobe and left occipital parietal region a nd right caudate nucleus among other areas. No acute intraparenchymal hemorrhage or mass effect. Cerebellum: Unremarkable. Mass effect: No evidence of midline shift. Intracranial vasculature: unremarkable Soft tissues: Normal. Calvarium/osseous structures: No depressed skull fracture. Paranasal sinuses and mastoid air cells: Mild scattered paranasal sinus disease. Visualized orbits: Orbital contents are intact. IMPRESSION: Evolving Multifocal acute/subacute CVA, correlate for embolic phenomenon. MRI recommended. No hemorrh agic conversion. [facility], , 07/02/2024 9:32 AM
--- NOTE | 2024-07-02 11:04 | P.PN ---
Subjective Progress Note Date: 07/02/24 Principal diagnosis: Acute cerebrovascular accident; Acute encephalopathy Patient is a 68 year old male with stage IV lung cancer on immunotherapy, diabetes mellitus, hypertension, hyperlipidemia, recent upper extremity DVT on blood thinner at home, GERD presented to the ED with left sided weakness and altered mental status. HPI obtained from ED staff and documentation. Patient is sedated, intubated and mechanically ventilated therefore unable to provide any history and no family with him at this time. Patient resides at [facility]. Patient was at his doctor's appointment earlier today around 2 pm when he started experiencing slurring of speech. He was accompanied by his cousin at the time. Upon returning from the doctor's office, family reported that patient would put his head out of the car window and he also started experiencing weakness of the left side of the body. EMS was called at this point. Patient then became unresponsive. Upon gaining consciousness, he was still incoherent and mumbling. EMS reported the patient having a forced gaze to the left. On arrival at the ED, he was alert but was unresponsive. Moreover, the patient was recently admitted at our facility a month ago for generalized weakness and was discharged home with [facility]. The patient has a recent history of upper extremity DVT and is currently on Lovenox at home. The patient follows up with oncologist at [facility] for stage IV lung cancer currently on immunotherapy. ED documentation reviewed. Patient didn't receive Tenecteplase as he was on Lovenox at home for recent upper extremity DVT but received Clopidogrel 75 mg PO and Aspirin 300 mg rectal. The patient was unresponsive therefore was given Etomidate 20 mg IVP and Rocuronium 50 mg IV and was intubated. He was given 0.9 normal saline bolus and Ondansetron 4mg IVP and was placed on Propofol drip. Vitals on admission T 98.5 F, MD 105 bpm, RR 18, BP 135/98, O2 sat 99% on room air EKG independently interpreted as sinus rhythm, right bundle branch block, T wave inversion in V3, rate 88 bpm, QTc 465 ms Chest x-ray shows Large right pleural effusion, endotracheal tube approximately 1.8 cm from the rosalia, enteric tube in appropriate position Brain CT shows no acute intracranial process specific white matter changes likely secondary to chronic small vessel ischemic disease CT angio head & neck shows no significant intracranial vascular abnormality, fibrofatty thrombus within bilateral proximal internal carotid arteries creating 75% stenosis on right and 90% stenosis on left, partially visualized large loc ulated left pleural effusion Labs on admission show WBC 9.7, hemoglobin 9.9, MCV 75.7, RDW 17, platelet count 777, INR 1.1, sodium 132, creatinine 0.63, ALP 130, CK 30, albumin 2.9 Troponin I less than 0.012 UA shows trace protein Urine toxicology detected opiates, oxycodone, cocaine Respiratory panel is negative ABG shows pH 7.49, pCO2 29, pO2 > 420 07/01/2024 patient seen and examined at bedside. Patient still in the ICU on intubation, mechanical ventilation and sedation. No acute events overnight. WBC 8.6 hemoglobin 7.8 hematocrit 26.6 platelet count 508,000 sodium 135 potassium 3.2 chloride 108 bicarb 21 BUN 5 creatinine 0.58 glucose 77 calcium 7.5 total bilirubin 0.4 AST 18 ALT 11 alk phos 97 Lipid panel showed triglycerides 71 cholesterol 62 LDL 24 HDL 23 lactic acid 2 07/02/2024 patient seen and examined at bedside. Patient still in the ICU on intubation, mechanical ventilation and sedation. No acute events overnight. WBC 15.2 hemoglobin 8.8 platelet count 659,000 PT 12.8 INR 1.2 PTT 41.4 bicarb 19 9 7 BUN 4 creatinine 0.47 glucose 159 calcium 7.6 magnesium 1.6. Acetamin ophen level less than 10 Alcohol level, less than 10 Ammonia level 9 Salicylate level less than 1 TSH 1.915 B12 811 A1c 5.2. EEG reported mild encephalopathy and negative for seizures or epileptiform waves. Repeat brain CT today showed evolving multifocal acute/subacute CVA with no hemorrhagic conversion Review of systems: Pertinent positives and negatives as discussed in HPI, a complete review of systems was performed and all other systems are negative. Pertinent imaging and labs reviewed. Physical examination: Vital signs reviewed General: sedated, intubated and mechanically ventilated Derm: no unusual rashes/lesions, warm Head: atraumatic, normocephalic, symmetric Eyes: EOMI, anicteric sclera, pupils equal round reactive to light ENT: Nose and ears atraumatic Neck: No cervical lymphadenopathy, trachea midline, supple Mouth: no lip lesion, mucus membranes moist Cardiovascular: S1S2 tachycardic, no murmur Lungs: CTA bilateral, no rhonchi, no rales, no accessory muscle use Abdominal: soft, nontender to palpation, no guarding Ext: muscle strength 5 out of 5 in all 4 extremities grossly, no gross muscle atrophy, no contractures, positive dorsalis pedis pulse bilateral, trace bip edal edema Neuro: Unable to assess Psych: Unable to assess Assessment/Plan: Patient is a 68 year old male with stage IV lung cancer on immunotherapy, diabetes mellitus, hypertension, hyperlipidemia, recent upper extremity DVT on blood thinner at home, GERD presented to the ED with left sided weakness and altered mental status. Active: #. Acute multifocal ischemic stroke #. Acute encephalopathy, likely secondary to CVA #. Bilateral carotid artery stenosis secondary to thrombus Repeat brain CT today showed evolving multifocal acute/subacute CVA with no hemorrhagic conversion CT angio head & neck shows no significant intracranial vascular abnormality, fibrofatty thrombus within bilateral proximal internal carotid arteries creating 75% stenosis on right and 90% stenosis on left, partially visualized large loculated left pleural effusion Urine toxicology detected opiates, oxycodone, cocaine Permissive hypertension, hold home antihypertensives EEG reported mild encephalopathy and negative for seizures or epileptiform waves Acetaminophen level less than 10 Alcohol level, less than 10 Ammonia level 9 Salicylate level less than 1 TSH 1.915 B12 811 A1c 5 point ABG shows pH of 7.48 CO2 25 O2 172 Neurochecks and Train of four Continue Telemetry monitoring Patient moved to ICU and sedated, intubated and mechanically intubated. Amber tly on Levophed drip Allergy following PT, OT, [employer] consulted Vascular surgery following. Heparin drip reinitiated due to possibility of more strokes caused by emboli. #. Chronic large right pleural effusion versus atelectasis Pulmnology considering bronch today Likely in the setting of lung cancer #. Nonaniongap metabolic acidosis #. Hyperchloremia Will monitor BMP Currently on 0.9 normal saline at 120 ml/hr #. Hyponatremia, resolved #. Hypokalemia, resolved #. Elevated alkaline phosphatase, resolved Chronic: #. Microcytic anemia, at baseline #. Thrombocytosis, likely secondary to malignancy Hemoglobin dropper to 7.8. Transfuse if Hb<7 Monitor CBC #. Stage IV lung cancer, on immunotherapy Capmatinib at home #. Non insulin dependent diabetes mellitus #. Hypertension #. Hyperlipidemia #. Anxiety/Depression Hold home meds Permissive hypertension insulin sliding scale #. History of right upper extremity DVT IV heparin drip for prophylaxis F: 0.9 normal saline at 120 ml/hr E: Replete as required N: NPO A: Bed rest DVT prophylaxis: Heparin drip GI prophylaxis: Pantoprazole 40 mg IVP daily Dispo: Prognosis is poor. Family is aware of patient's critical state and possible complications of further strokes. We recommended transfer to a higher care facility. However, preferred to keep patient at our facility CODE STATUS: FULL CODE Mariah Santos MD PGY-1/Comfort Filler Dictation was produced using [employer] dictation software. please excuse any grammatical, word or spelling errors. I have seen and evaluated the patient today. Discussed with the resident and agree with the residents finding and plan as documented in the resident's note. Changes highlighted in blue font. Objective - Vital Signs Vital signs: Vital Signs Temp 98.4 F 07/02/24 04:00 Pulse 115 H 07/02/24 06:45 Resp 27 H 07/02/24 06:45 BP 134/93 07/02/24 06:45 Pulse Ox 100 07/02/24 06:45 FiO2 30 07/02/24 05:06 Intake & Output 07/01/24 07/02/24 07/02/24 18:59 06:59 18:59 Intake Total 4158.141 2241.827 Output Total 495 560 Balance 6183.618 6008.827 Weight 66.1 kg 68.8 kg Intake: IV 1353 1476 Sodium Chloride 0.9% 1, 1320 1440 000 ml @ 120 mls/hr IV . Q8H20M [id number] Rx#:[id number] pressure bag 33 36 Intake, IV Titration 352.394 642.827 Amount Heparin Sod,Pork in 0.45% 3.569 59.093 NaCl 25,000 unit In 0.45 % NaCl 1 250ml.bag @ 12 UNITS/KG/HR 7.932 mls/hr IV .Q24H [facility] Rx#: [id number] Heparin Sod,Pork in 0.45% 29.764 NaCl 25,000 unit In 0.45 % NaCl 1 250ml.bag @ 12 UNITS/KG/HR 9.253 mls/hr IV .Q24H [facility] Rx#: [id number] Norepinephrine 4 mg In 46.960 522.002 Sodium Chloride 0.9% 250 ml @ 0.03 MCG/KG/MIN 8. 814 mls/hr IV .Q24H [facility] Rx#:[id number] Sodium Chloride 0.9% 1, 120 000 ml @ 120 mls/hr IV . Q8H20M [facility] Rx#:[id number] propofoL 1,000 mg In 152.101 61.732 Empty Bag 1 bag @ 15 MCG/ KG/MIN 6.94 mls/hr IV . [id number] [facility] Rx#:[id number] Output: Urine 455 560 Other 40 Other: Voiding Method Indwelling Catheter Indwelling Catheter ABP, PAP, CO, CI - Last Documented Arterial Blood Pressure 136/77 - Labs CBC & Chem 7: 07/02/24 05:41 07/02/24 05:41 Labs: Abnormal Lab Results - Last 24 Hours (Table) 07/01/24 07/01/24 07/01/24 Range/Units 06:58 07:40 07:40 WBC (3.8-10.6) k/uL RBC 3.58 L (4.30-5.90) m/uL Hgb 7.8 L D (13.0-17.5) gm/dL Hct 26.6 L (39.0-53.0) % MCV 74.5 L (80.0-100.0) fL MCH 21.8 L (25.0-35.0) pg MCHC 29.2 L (31.0-37.0) g/dL RDW 17.0 H (11.5-15.5) % Plt Count 508 H (150-450) k/uL Neutrophils # (1.3-7.7) k/uL Lymphocytes # (1.0-4.8) k/uL PT (10.0-12.5) sec INR (<1.2) APTT (22.0-30.0) sec ABG pH (7.35-7.45) ABG pCO2 (35-45) mmHg ABG pO2 (83-108) mmHg ABG HCO3 (21-25) mmol/L ABG O2 Saturation (94-97) % Hemoglobin (13.0-17.5) gm/dL Sodium (137-145) mmol/L Potassium (3.5-5.1) mmol/L Chloride (98-107) mmol/L Carbon Dioxide (22-30) mmol/L BUN (9-20) mg/dL Creatinine (0.66-1.25) mg/dL Glucose (74-99) mg/dL POC Glucose (mg/dL) (70-110) mg/dL Calcium (8.4-10.2) mg/dL Magnesium (1.6-2.3) mg/dL Iron 10 L (65-175) UG/DL TIBC 93 L (228-460) UG/DL % Saturation 10.75 L (15.00-50.00) Transferrin 66.4 L 66.5 L (204.0-354.0) mg/dL Ferritin 373.0 H (22.0-322.0) ng/mL Total Protein (6.3-8.2) g/dL Albumin (3.5-5.0) g/dL HDL Cholesterol (40.00-60.00) mg/dL 07/01/24 07/01/24 07/01/24 Range/Units 07:40 10:35 17:58 WBC (3.8-10.6) k/uL RBC (4.30-5.90) m/uL Hgb (13.0-17.5) gm/dL Hct (39.0-53.0) % MCV (80.0-100.0) fL MCH (25.0-35.0) pg MCHC (31.0-37.0) g/dL RDW (11.5-15.5) % Plt Count (150-450) k/uL Neutrophils # (1.3-7.7) k/uL Lymphocytes # (1.0-4.8) k/uL PT (10.0-12.5) sec INR (<1.2) APTT (22.0-30.0) sec ABG pH (7.35-7.45) ABG pCO2 (35-45) mmHg ABG pO2 (83-108) mmHg ABG HCO3 (21-25) mmol/L ABG O2 Saturation (94-97) % Hemoglobin (13.0-17.5) gm/dL Sodium 135 L (137-145) mmol/L Potassium 3.2 L (3.5-5.1) mmol/L Chloride 108 H (98-107) mmol/L Carbon Dioxide 21 L (22-30) mmol/L BUN 5 L (9-20) mg/dL Creatinine 0.58 L (0.66-1.25) mg/dL Glucose (74-99) mg/dL POC Glucose (mg/dL) 142 H (70-110) mg/dL Calcium 7.5 L (8.4-10.2) mg/dL Magnesium 1.5 L (1.6-2.3) mg/dL Iron (65-175) UG/DL TIBC (228-460) UG/DL % Saturation (15.00-50.00) Transferrin (204.0-354.0) mg/dL Ferritin (22.0-322.0) ng/mL Total Protein 5.5 L (6.3-8.2) g/dL Albumin 2.0 L (3.5-5.0) g/dL HDL Cholesterol 23.20 L (40.00-60.00) mg/dL 07/02/24 07/02/24 07/02/24 Range/Units 00:14 00:16 01:04 WBC 15.0 H (3.8-10.6) k/uL RBC 3.93 L (4.30-5.90) m/uL Hgb 8.7 L (13.0-17.5) gm/dL Hct 29.3 L (39.0-53.0) % MCV 74.5 L (80.0-100.0) fL MCH 22.1 L (25.0-35.0) pg MCHC 29.7 L (31.0-37.0) g/dL RDW 17.2 H (11.5-15.5) % Plt Count 654 H (150-450) k/uL Neutrophils # (1.3-7.7) k/uL Lymphocytes # (1.0-4.8) k/uL PT (10.0-12.5) sec INR (<1.2) APTT 33.7 H (22.0-30.0) sec ABG pH (7.35-7.45) ABG pCO2 (35-45) mmHg ABG pO2 (83-108) mmHg ABG HCO3 (21-25) mmol/L ABG O2 Saturation (94-97) % Hemoglobin (13.0-17.5) gm/dL Sodium (137-145) mmol/L Potassium (3.5-5.1) mmol/L Chloride (98-107) mmol/L Carbon Dioxide (22-30) mmol/L BUN (9-20) mg/dL Creatinine (0.66-1.25) mg/dL Glucose (74-99) mg/dL POC Glucose (mg/dL) 131 H (70-110) mg/dL Calcium (8.4-10.2) mg/dL Magnesium (1.6-2.3) mg/dL Iron (65-175) UG/DL TIBC (228-460) UG/DL % Saturation (15.00-50.00) Transferrin (204.0-354.0) mg/dL Ferritin (22.0-322.0) ng/mL Total Protein (6.3-8.2) g/dL Albumin (3.5-5.0) g/dL HDL Cholesterol (40.00-60.00) mg/dL 07/02/24 07/02/24 07/02/24 Range/Units 01:04 04:59 05:40 WBC (3.8-10.6) k/uL RBC (4.30-5.90) m/uL Hgb (13.0-17.5) gm/dL Hct (39.0-53.0) % MCV (80.0-100.0) fL MCH (25.0-35.0) pg MCHC (31.0-37.0) g/dL RDW (11.5-15.5) % Plt Count (150-450) k/uL Neutrophils # (1.3-7.7) k/uL Lymphocytes # (1.0-4.8) k/uL PT (10.0-12.5) sec INR (<1.2) APTT (22.0-30.0) sec ABG pH 7.48 H (7.35-7.45) ABG pCO2 25 L (35-45) mmHg ABG pO2 172 H (83-108) mmHg ABG HCO3 18 L (21-25) mmol/L ABG O2 Saturation 100.0 H (94-97) % Hemoglobin 8.9 L (13.0-17.5) gm/dL Sodium 135 L (137-145) mmol/L Potassium (3.5-5.1) mmol/L Chloride 111 H (98-107) mmol/L Carbon Dioxide 16 L (22-30) mmol/L BUN 4 L (9-20) mg/dL Creatinine 0.45 L (0.66-1.25) mg/dL Glucose 144 H (74-99) mg/dL POC Glucose (mg/dL) 164 H (70-110) mg/dL Calcium 7.7 L (8.4-10.2) mg/dL Magnesium (1.6-2.3) mg/dL Iron (65-175) UG/DL TIBC (228-460) UG/DL % Saturation (15.00-50.00) Transferrin (204.0-354.0) mg/dL Ferritin (22.0-322.0) ng/mL Total Protein (6.3-8.2) g/dL Albumin (3.5-5.0) g/dL HDL Cholesterol (40.00-60.00) mg/dL 07/02/24 07/02/24 07/02/24 Range/Units 05:41 05:41 05:41 WBC 15.2 H (3.8-10.6) k/uL RBC 3.91 L (4.30-5.90) m/uL Hgb 8.8 L (13.0-17.5) gm/dL Hct 29.1 L (39.0-53.0) % MCV 74.4 L (80.0-100.0) fL MCH 22.6 L (25.0-35.0) pg MCHC 30.4 L (31.0-37.0) g/dL RDW 17.0 H (11.5-15.5) % Plt Count 659 H (150-450) k/uL Neutrophils # 13.3 H (1.3-7.7) k/uL Lymphocytes # 0.7 L (1.0-4.8) k/uL PT 12.8 H (10.0-12.5) sec INR 1.2 H (<1.2) APTT (22.0-30.0) sec ABG pH (7.35-7.45) ABG pCO2 (35-45) mmHg ABG pO2 (83-108) mmHg ABG HCO3 (21-25) mmol/L ABG O2 Saturation (94-97) % Hemoglobin (13.0-17.5) gm/dL Sodium (137-145) mmol/L Potassium (3.5-5.1) mmol/L Chloride 111 H (98-107) mmol/L Carbon Dioxide 19 L (22-30) mmol/L BUN 4 L (9-20) mg/dL Creatinine 0.47 L (0.66-1.25) mg/dL Glucose 159 H (74-99) mg/dL POC Glucose (mg/dL) (70-110) mg/dL Calcium 7.6 L (8.4-10.2) mg/dL Magnesium (1.6-2.3) mg/dL Iron (65-175) UG/DL TIBC (228-460) UG/DL % Saturation (15.00-50.00) Transferrin (204.0-354.0) mg/dL Ferritin (22.0-322.0) ng/mL Total Protein (6.3-8.2) g/dL Albumin (3.5-5.0) g/dL HDL Cholesterol (40.00-60.00) mg/dL Microbiology - Last 24 Hours (Table) 07/01/24 07:59 Gram Stain - Preliminary Sputum
[2024-07-02 11:48] LABS: Glucose,Whole Blood 138 mg/dL (70-110)
--- NOTE | 2024-07-02 12:24 | P.PN ---
Subjective Progress Note Date: 07/02/24 Patient was attempted to be seen in neurologic follow-up. He was being seen by pulmonary and given sedation for the bronchoscopy that is underway. Initial head CT was reviewed by myself this morning. There is a large area of acute/subacute infarct involving the right temporal parietal region. Repeat he ad CT was ordered to assess for edema. On the repeat head CT. There are multiple areas of acute ischemia, bilaterally. There is no evidence of hemorrhage. Per nursing, patient is moving his left side only. He remains intubated and sedated. Objective - Vital Signs Vital signs: Vital Signs Temp 98.4 F 07/02/24 04:00 Pulse 114 H 07/02/24 09:23 Resp 24 07/02/24 07:30 BP 134/93 07/02/24 06:45 Pulse Ox 100 07/02/24 07:30 FiO2 30 07/02/24 08:53 Intake & Output 07/01/24 07/02/24 07/02/24 18:59 06:59 18:59 Intake Total 9365.819 7540.913 236.109 Output Total 495 560 40 Balance 5968.712 4076.913 196.109 Weight 66.1 kg 68.8 kg Intake: IV 1353 1476 223 Magnesium Sulfate-D5w Pmx 100 1 gm In Dextrose/Water 1 100ml.bag @ 100 mls/hr IVPB Q1H [facility] Rx#: [id number] Sodium Chloride 0.9% 1, 1320 1440 120 000 ml @ 120 mls/hr IV . Q8H20M [facility] Rx#:[id number] pressure bag 33 36 3 Intake, IV Titration 352.394 855.913 13.109 Amount Heparin Sod,Pork in 0.45% 3.569 59.093 NaCl 25,000 unit In 0.45 % NaCl 1 250ml.bag @ 12 UNITS/KG/HR 7.932 mls/hr IV .Q24H [facility] Rx#: [id number] Heparin Sod,Pork in 0.45% 29.764 NaCl 25,000 unit In 0.45 % NaCl 1 250ml.bag @ 12 UNITS/KG/HR 9.253 mls/hr IV .Q24H [facility] Rx#: [id number] Norepinephrine 4 mg In 46.960 715.040 9.793 Sodium Chloride 0.9% 250 ml @ 0.03 MCG/KG/MIN 8. 814 mls/hr IV .Q24H [facility] Rx#:[id number] Sodium Chloride 0.9% 1, 120 000 ml @ 120 mls/hr IV . Q8H20M [facility] Rx#:[id number] propofoL 1,000 mg In 152.101 81.780 3.316 Empty Bag 1 bag @ 15 MCG/ KG/MIN 6.94 mls/hr IV . [id number] [facility] Rx#:[id number] Output: Urine 455 560 40 Other 40 Other: Voiding Method Indwelling Catheter Indwelling Catheter ABP, PAP, CO, CI - Last Documented Arterial Blood Pressure 154/80 - Exam The patient is not examined on this hospital day - Labs CBC & Chem 7: 07/02/24 05:41 07/02/24 05:41 Labs: Abnormal Lab Results - Last 24 Hours (Table) 07/01/24 07/01/24 07/01/24 Range/Units 07:40 07:40 07:40 WBC (3.8-10.6) k/uL RBC (4.30-5.90) m/uL Hgb (13.0-17.5) gm/dL Hct (39.0-53.0) % MCV (80.0-100.0) fL MCH (25.0-35.0) pg MCHC (31.0-37.0) g/dL RDW (11.5-15.5) % Plt Count (150-450) k/uL Neutrophils # (1.3-7.7) k/uL Lymphocytes # (1.0-4.8) k/uL PT (10.0-12.5) sec INR (<1.2) APTT (22.0-30.0) sec ABG pH (7.35-7.45) ABG pCO2 (35-45) mmHg ABG pO2 (83-108) mmHg ABG HCO3 (21-25) mmol/L ABG O2 Saturation (94-97) % Hemoglobin (13.0-17.5) gm/dL Sodium (137-145) mmol/L Chloride (98-107) mmol/L Carbon Dioxide (22-30) mmol/L BUN (9-20) mg/dL Creatinine (0.66-1.25) mg/dL Glucose (74-99) mg/dL POC Glucose (mg/dL) (70-110) mg/dL Calcium (8.4-10.2) mg/dL Magnesium (1.6-2.3) mg/dL Iron 10 L (65-175) UG/DL TIBC 93 L (228-460) UG/DL % Saturation 10.75 L (15.00-50.00) Transferrin 66.4 L 66.5 L (204.0-354.0) mg/dL Ferritin 373.0 H (22.0-322.0) ng/mL HDL Cholesterol 23.20 L (40.00-60.00) mg/dL 07/01/24 07/01/24 07/02/24 Range/Units 10:35 17:58 00:14 WBC (3.8-10.6) k/uL RBC (4.30-5.90) m/uL Hgb (13.0-17.5) gm/dL Hct (39.0-53.0) % MCV (80.0-100.0) fL MCH (25.0-35.0) pg MCHC (31.0-37.0) g/dL RDW (11.5-15.5) % Plt Count (150-450) k/uL Neutrophils # (1.3-7.7) k/uL Lymphocytes # (1.0-4.8) k/uL PT (10.0-12.5) sec INR (<1.2) APTT (22.0-30.0) sec ABG pH (7.35-7.45) ABG pCO2 (35-45) mmHg ABG pO2 (83-108) mmHg ABG HCO3 (21-25) mmol/L ABG O2 Saturation (94-97) % Hemoglobin (13.0-17.5) gm/dL Sodium (137-145) mmol/L Chloride (98-107) mmol/L Carbon Dioxide (22-30) mmol/L BUN (9-20) mg/dL Creatinine (0.66-1.25) mg/dL Glucose (74-99) mg/dL POC Glucose (mg/dL) 142 H 131 H (70-110) mg/dL Calcium (8.4-10.2) mg/dL Magnesium 1.5 L (1.6-2.3) mg/dL Iron (65-175) UG/DL TIBC (228-460) UG/DL % Saturation (15.00-50.00) Transferrin (204.0-354.0) mg/dL Ferritin (22.0-322.0) ng/mL HDL Cholesterol (40.00-60.00) mg/dL 07/02/24 07/02/24 07/02/24 Range/Units 00:16 01:04 01:04 WBC 15.0 H (3.8-10.6) k/uL RBC 3.93 L (4.30-5.90) m/uL Hgb 8.7 L (13.0-17.5) gm/dL Hct 29.3 L (39.0-53.0) % MCV 74.5 L (80.0-100.0) fL MCH 22.1 L (25.0-35.0) pg MCHC 29.7 L (31.0-37.0) g/dL RDW 17.2 H (11.5-15.5) % Plt Count 654 H (150-450) k/uL Neutrophils # (1.3-7.7) k/uL Lymphocytes # (1.0-4.8) k/uL PT (10.0-12.5) sec INR (<1.2) APTT 33.7 H (22.0-30.0) sec ABG pH (7.35-7.45) ABG pCO2 (35-45) mmHg ABG pO2 (83-108) mmHg ABG HCO3 (21-25) mmol/L ABG O2 Saturation (94-97) % Hemoglobin (13.0-17.5) gm/dL Sodium 135 L (137-145) mmol/L Chloride 111 H (98-107) mmol/L Carbon Dioxide 16 L (22-30) mmol/L BUN 4 L (9-20) mg/dL Creatinine 0.45 L (0.66-1.25) mg/dL Glucose 144 H (74-99) mg/dL POC Glucose (mg/dL) (70-110) mg/dL Calcium 7.7 L (8.4-10.2) mg/dL Magnesium (1.6-2.3) mg/dL Iron (65-175) UG/DL TIBC (228-460) UG/DL % Saturation (15.00-50.00) Transferrin (204.0-354.0) mg/dL Ferritin (22.0-322.0) ng/mL HDL Cholesterol (40.00-60.00) mg/dL 07/02/24 07/02/24 07/02/24 Range/Units 04:59 05:40 05:41 WBC (3.8-10.6) k/uL RBC (4.30-5.90) m/uL Hgb (13.0-17.5) gm/dL Hct (39.0-53.0) % MCV (80.0-100.0) fL MCH (25.0-35.0) pg MCHC (31.0-37.0) g/dL RDW (11.5-15.5) % Plt Count (150-450) k/uL Neutrophils # (1.3-7.7) k/uL Lymphocytes # (1.0-4.8) k/uL PT (10.0-12.5) sec INR (<1.2) APTT (22.0-30.0) sec ABG pH 7.48 H (7.35-7.45) ABG pCO2 25 L (35-45) mmHg ABG pO2 172 H (83-108) mmHg ABG HCO3 18 L (21-25) mmol/L ABG O2 Saturation 100.0 H (94-97) % Hemoglobin 8.9 L (13.0-17.5) gm/dL Sodium (137-145) mmol/L Chloride 111 H (98-107) mmol/L Carbon Dioxide 19 L (22-30) mmol/L BUN 4 L (9-20) mg/dL Creatinine 0.47 L (0.66-1.25) mg/dL Glucose 159 H (74-99) mg/dL POC Glucose (mg/dL) 164 H (70-110) mg/dL Calcium 7.6 L (8.4-10.2) mg/dL Magnesium (1.6-2.3) mg/dL Iron (65-175) UG/DL TIBC (228-460) UG/DL % Saturation (15.00-50.00) Transferrin (204.0-354.0) mg/dL Ferritin (22.0-322.0) ng/mL HDL Cholesterol (40.00-60.00) mg/dL 07/02/24 07/02/24 07/02/24 Range/Units 05:41 05:41 07:30 WBC 15.2 H (3.8-10.6) k/uL RBC 3.91 L (4.30-5.90) m/uL Hgb 8.8 L (13.0-17.5) gm/dL Hct 29.1 L (39.0-53.0) % MCV 74.4 L (80.0-100.0) fL MCH 22.6 L (25.0-35.0) pg MCHC 30.4 L (31.0-37.0) g/dL RDW 17.0 H (11.5-15.5) % Plt Count 659 H (150-450) k/uL Neutrophils # 13.3 H (1.3-7.7) k/uL Lymphocytes # 0.7 L (1.0-4.8) k/uL PT 12.8 H (10.0-12.5) sec INR 1.2 H (<1.2) APTT 41.4 H (22.0-30.0) sec ABG pH (7.35-7.45) ABG pCO2 (35-45) mmHg ABG pO2 (83-108) mmHg ABG HCO3 (21-25) mmol/L ABG O2 Saturation (94-97) % Hemoglobin (13.0-17.5) gm/dL Sodium (137-145) mmol/L Chloride (98-107) mmol/L Carbon Dioxide (22-30) mmol/L BUN (9-20) mg/dL Creatinine (0.66-1.25) mg/dL Glucose (74-99) mg/dL POC Glucose (mg/dL) (70-110) mg/dL Calcium (8.4-10.2) mg/dL Magnesium (1.6-2.3) mg/dL Iron (65-175) UG/DL TIBC (228-460) UG/DL % Saturation (15.00-50.00) Transferrin (204.0-354.0) mg/dL Ferritin (22.0-322.0) ng/mL HDL Cholesterol (40.00-60.00) mg/dL Microbiology - Last 24 Hours (Table) 07/01/24 07:59 Gram Stain - Preliminary Sputum Assessment and Plan Assessment: 1. 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 Cocaine abuse 3. Episode of unresponsiveness due to multifactorial could be due to above as well as polysubstance abuse 4. Significant left ICA stenosis, the right is 75% stenosis in the left is 90% stenosis on CT angiography. This is symptomatic. 5. Acute respiratory failure and the patient was intubated on a ventilator since inability to protect his airway 6. History is advanced stage IV lung cancer 7. History of recurrent right-sided pleural effusion 8. Hypertension 9. History of hyperlipidemia 10. Underlying history of diabetes mellitus 11. Polysubstance abuse Plan: 1. Transesophageal echocardiogram has been ordered to assess for embolic source 2. Patient was on aspirin 300 mg once and was sent Plavix 75 mg once per the stroke attending recommendation. Today was started on aspirin 81 mg. During this hospital visit he was started on heparin drip because of history of DVT. 3. Will get a repeat CT of the head to rule out any significant stroke especially since he is on heparin drip. Once the patient is extubated will obtain MRI of the brain. 4. Patient is on Lipitor 80 mg nightly for secondary stroke fluxes 5. An EEG was ordered and preliminary does not show any active seizure or discharges so I canceled the Keppra that was started yesterday since his symptoms are likely due to his stroke. 6. Vascular surgery team is consulted. 7. Recommend permissive hypertension and treat systolic if >210 and diastolic if >110. 8. Continue neurochecks 9. Cardiac monitoring 10. PT, OT and PRODUCT DEVELOPMENT DIRECTOR are consulted Will defer the rest of the medical management to primary other specialist Time with Patient: Less than 30 (The patient was not examined this hospital day. Labs, imaging and reports were reviewed)
--- NOTE | 2024-07-02 12:33 | CA ---
Transthoracic Echo Report Name: Mando Armendariz Age: 68 Gender: M : 1955 Exam Date: 07/01/2024 09:53 Exam Location: [place] [facility] Ht (in): 70 Wt (lb): 170 Ordering Physician: Daphne Werner MD Attending/Referring Phys: Adolescent Psychiatrist Chelsie Emmanuel RDCS Procedure CPT: Indications: Slurred speech, CVA Cardiac Hx: Technical Quality: Fair Contrast 1: Total Dose (mL): Contrast 2: Total Dose (mL): MEASUREMENTS (Male / Female) Normal Values DOPPLER AV Peak Velocity 88.3 cm/s AV Peak Gradient 3.1 mmHg AV Mean Velocity 67.5 cm/s AV Mean Gradient 2.0 mmHg AV Velocity Time Integral 13.5 cm LVOT Peak Velocity 67.6 cm/s LVOT Peak Gradient 1.8 mmHg LVOT Velocity Time Integral 10.0 cm TR Peak Velocity 196.7 cm/s TR Peak Gradient 15.5 mmHg Right Atrial Pressure 20.0 mmHg Pulmonary Artery Systolic Pressu 35.5 mmHg Right Ventricular Systolic Press 35.5 mmHg PV Peak Velocity 70.0 cm/s PV Peak Gradient 2.0 mmHg FINDINGS Left Ventricle Left ventricular ejection fraction is estimated at 55 % by visual. Left ventricular cavity size normal. No obvious regional wall motion abnormalities. Right Ventricle Normal right ventricular size and function. Borderline pulmonary hypertension. Right Atrium Negative agitated saline bubble study for right to left shunt. Normal right atrial size by visual. Left Atrium Normal left atrial size by visual. Mitral Valve Structurally normal mitral valve. No mitral stenosis, regurgitation or prolapse. Aortic Valve Trileaflet aortic valve. No aortic stenosis. Mild aortic regurgitation. Tricuspid Valve Structurally normal tricuspid valve. No tricuspid stenosis. Mild tricuspid regurgitation. Pulmonic Valve Structurally normal pulmonic valve. No pulmonic stenosis. No pulmonic regurgitation. Pericardium No pericardial effusion. Aorta Aortic root and proximal ascending aorta not well visualized. CONCLUSIONS Diagnosis CVA, slurred speech Preserved LV systolic function Normal RV size and function No [id number] shunt at the interatrial level Previewed by: Dr. Anmol Hopkins MD (Electronically Signed) Final Date: 02 July 2024 12:32
[2024-07-02 17:29] LABS: Glucose,Whole Blood 125 mg/dL (70-110)
[2024-07-02 17:29] LABS: Glucose,Whole Blood 109 mg/dL (70-110)
[2024-07-02] MEDS: NOREPINEPHRINE 8 MG in SODIUM CHLORIDE 0.9% 250 ML IV SCH (18:02)
[2024-07-02] MEDS: ACETAMINOPHEN TAB 325 MG TAB PO PRN (18:29)
--- NOTE | 2024-07-02 18:35 | PCN ---
PROCEDURE NOTE PROCEDURE: Bronchoscopy, airway examination, therapeutic lavage, BAL of right lower lobe. PREOPERATIVE DIAGNOSIS: Right lung collapse. POSTOPERATIVE DIAGNOSIS: Right lung collapse. DESCRIPTION OF PROCEDURE: There was informed consent and universal timeout. The patient's procedure took place in room 255. The patient was already mechanically ventilated. The FiO2 was turned up to 100%. The patient was sedated with propofol. He received Nimbex 10 mg prior to the procedure. Once the patient was adequately sedated, the bronchoscope was pushed through the bronchoscope adapter connected to the endotracheal tube. The bronchoscope was pushed through the endotracheal tube into the mid to distal trachea. That portion of the trachea was full of secretions and the secretions were suctioned. The tracheal rosalia was sharp. First, I evaluated the left side after topicalization. The left upper lobe and its 2 segments, the lingula and its 2 segments, and the left lower lobe and its 4 segments were all found to be normal except for thick purulent looking secretions throughout. There was no dominant mass or tumor. On the right side, the right upper lobe and its 3 segments appeared relatively normal. The bronchus intermedius was normal up until the takeoff of the right lower lobe. The right middle lobe appeared a bit distorted, but the right lower lobe was quite distorted, with mucosa heat and quite irregular. It was quite vascular, and bled relatively easily. Secretions were noted in the right lung, including the right middle lobe and right lower lobe. They were suctioned. There was no immediate complication from that. There was no dominant mass or tumor, but again the mucosa particularly in the right lower lobe was quite distinctly abnormal and likely was malignant in nature. Next, the bronchoscope was wedged into the right lower lobe. We did a formal BAL, 30 mL of fluid was recovered. The patient tolerated the procedure well. The fluid was sent for analysis. There was no immediate complication. The bronchoscope was withdrawn. MMODL / IJN: [id number] /
[2024-07-03 02:33] LABS: Glucose,Whole Blood 158 mg/dL (70-110)
[2024-07-03 04:24] LABS: Anisocytosis Slight; HCT 28.2 % (39.0-53.0); HGB 8.3 gm/dL (13.0-17.5); Hypochromasia Marked; MCH 22.2 pg (25.0-35.0); MCHC 29.4 g/dL (31.0-37.0); MCV 75.5 fL (80.0-100.0); Mean Platelet Volume 6.7; Microcytosis Slight; Platelet Count 611 k/uL (150-450); Poikilocytosis Slight; RBC 3.73 m/uL (4.30-5.90); RDW 17.1 % (11.5-15.5); WBC 30.7 k/uL (3.8-10.6)
[2024-07-03 04:40] LABS: African American GFR (CKD) >90 (>60 ml/min/1.73 sqM); Anion Gap 4 mmol/L; Blood Urea Nitrogen 4 mg/dL (9-20); Calcium 7.8 mg/dL (8.4-10.2); Carbon Dioxide 17 mmol/L (22-30); Chloride 116 mmol/L (98-107); Glucose 116 mg/dL (74-99); Magnesium 1.7 mg/dL (1.6-2.3); Non-African American GFR(CKD) >90 (>60 ml/min/1.73 sqM); Potassium 3.5 mmol/L (3.5-5.1); Sodium 137 mmol/L (137-145)
[2024-07-03 05:07] LABS: ABG Base Excess -4.6 mmol/L; ABG HCO3 19 mmol/L (21-25); ABG Oxygen Saturation 99.2 % (94-97); ABG PCO2 28 mmHg (35-45); ABG PH 7.44 (7.35-7.45); ABG PO2 117 mmHg (83-108); ABG TCO2 20 mmol/L (19-24); Allen Test Performed? Yes
--- NOTE | 2024-07-03 05:16 | XR ---
EXAMINATION TYPE: XR chest 1V portable DATE OF EXAM: 07/03/2024 CLINICAL HISTORY: Difficulty breathing progress study. TECHNIQUE: Single AP portable semiupright view of the chest is obtained. COMPARISON: Chest x-ray from one day earlier FINDINGS: Stable endotracheal and orogastric tubes. Stable left-sided subclavian central venous cath eter. Completely opacified right hemithorax redemonstrated. Silhouetting right heart border again seen. Lef t lung remains clear with tiny left pleural effusion. No significant mediastinal shift. Osseous struc tures are intact. IMPRESSION: Opacified right hemithorax remains present consistent with acute infiltrate and/or atelec tasis and possible right-sided pleural effusion. No significant change from one day earlier. [facility], , 07/03/2024 5:14 AM
[2024-07-03] MEDS: MAGNESIUM SULFATE-D5W PMX 1 GM in DEXTROSE/WATER 1 100ML.BAG IVPB ONE (05:43)
[2024-07-03] MEDS: POTASSIUM BICARBONATE/CIT AC 20 MEQ TABLET.EFF NG-TUBE SCH ×2 (05:44→18:46)
[2024-07-03 06:09] LABS: Glucose,Whole Blood 131 mg/dL (70-110)
[2024-07-03] MEDS: VASOPRESSIN 60 UNIT in SODIUM CHLORIDE 0.9% 150 ML IV SCH (09:19)
--- NOTE | 2024-07-03 10:45 | P.PN ---
Subjective Progress Note Date: 07/03/24 Principal diagnosis: Respiratory failure, CVA. Pulmonary consult dated July 01, 2024. 68-year-old black male with a history of multiple medical problems including advanced lung cancer, right pleural effusion, hyperlipidemia, hypertension, GERD, type 2 diabetes. The patient presented to the emergency department, at about 8:00 PM on June 30, with strokelike symptoms. He apparently was found to have slurred speech. He apparently became incoherent, and was apparently struggling to move the left side of his body. EMS was called and he was brought into the emergency department. The patient apparently was not able to protect his airway, and required intubation and mechanical ventilation. I did speak to Dr. Rodriguez in the emergency department. The patient is transferred to the intensive care unit, for further monitoring and management. The patient's drug screen was positive for opiates and cocaine. That may have had some effect on his neurologic issues. He is currently on volume assist-control, rate 20, tidal volume 500, FiO2 40%, PEEP of 5. Blood gases initially showed a pO2 that was greater than 420, pCO2 29, pH of 7.49. The patient is on propofol at 30 mcg/kg/min, saline at 120 cc an hour. When the patient came to the intensive care unit, we placed a right radial art line, a left subclavian triple-lumen catheter, and because his endotracheal tube was defective, we replaced the endotracheal tube with a #8 endotracheal tube. Current laboratory data includes a white count of 8.6, hemoglobin 7.8, hematocrit 26.6, platelet count of 508,000 . Sodium 135, potassium 3.2, chlorides 108, CO2 21, BUN 5, and creatinine 0.58. Calcium 7.5, magnesium 1.5. Albumin 2. Urine is negative. Drug screen was positive for opiates, oxycodone, and cocaine. Viral studies were negative. Chest x-ray showed an opacified right hemithorax. Progress note dated July 02, 2024. 68-year-old black male seen today in room 255. His , flew up from [place] last night, and is at the bedside. The patient is currently on volume assist- control, rate 20, tidal volume 500, FiO2 40%, PEEP of 5. Blood gases show pO2 172, pCO2 25, pH of 7.48. The FiO2 was reduced down to 30%. The patient is on propofol at 20 mcg/kg/min, norepinephrine at 33 mcg/min, heparin via weight- based protocol, and saline at 120 cc an hour. The patient CT scan of the brain revealed a an evolving CVA, involving the right side, with left-sided weakness. The patient will have tube feeds started. In addition, chest x-ray reveals an opacified right hemithorax, and bronchoscopy will be done this morning. White count 15.2, hemoglobin 8.8, hematocrit 29.1, platelet count of 659,000. PT 12.8, INR 1.2. Sodium 137, potassium 3.6, chlorides 111, CO2 19, BUN 4, creatinine 0.47. Glucose was 164. Calcium 7.6. Magnesium 1.6. Chest x-ray reveals a right opacified hemithorax. CT scan of the reveals acute/subacute ischemia in the right parietotemporal area, and right frontal lobe. Progress note dated July 03, 2024. 68-year-old black male seen again in room 255. The patient has a history of lung cancer, advanced. The patient presented with neurologic findings, and was found to have a right sided CVA, and more recently, a another CT scan of the brain revealed additional damage to the left side of his brain. The patient remains on the ventilator. He is on volume assist-control, rate 20, tidal volume 500, 30% FiO2, PEEP of 5. Blood gases show pO2 117, pCO2 of 28, pH of 7.44. The patient is on norepinephrine at 33 mcg/min, propofol at 20 mcg/kg/min, 0.9 to 120 cc an hour, and heparin via weight-based protocol. The patient is getting vital high-protein at 10 cc an hour. Repeat brain CT showing extension, was done yesterday, July 02. He now has bilateral ischemic strokes. The patient only moves his left lower extremity. Because of his hig her doses of norepinephrine, will add vasopressin. His procalcitonin level was within normal range. We will check a cortisol level for adrenal insufficiency. Chest x-ray shows an opacified right chest. Bronchoscopy yesterday revealed significant secretions and disease, in the right lower lobe. White count 30.7, hemoglobin 8.3, hematocrit 28.2, platelet count 611,000. PTT is 42.7. Sodium 137, potassium 3.5, chlorides 116, CO2 17, BUN 4, creatinine 0.40. Glucose 131. Cultures thus far negative. Procalcitonin level is normal. Chest x-ray is unchanged. Objective - Vital Signs Vital signs: Vital Signs Temp 97.9 F 07/03/24 08:00 Pulse 105 H 07/03/24 09:20 Resp 23 07/03/24 09:00 BP 131/97 07/03/24 09:00 Pulse Ox 100 07/03/24 09:00 FiO2 30 07/03/24 09:16 Intake & Output 07/02/24 07/03/24 07/03/24 18:59 06:59 18:59 Intake Total 2461.057 2746.960 389 Output Total 845 750 230 Balance 8641.298 2233.960 159 Weight 71.3 kg Intake: IV 1676 1476 369 Magnesium Sulfate-D5w Pmx 200 1 gm In Dextrose/Water 1 100ml.bag @ 100 mls/hr IVPB Q1H [facility] Rx#: [id number] Sodium Chloride 0.9% 1, 1440 1440 360 000 ml @ 120 mls/hr IV . Q8H20M [facility] Rx#:[id number] pressure bag 36 36 9 Intake, IV Titration 088.353 4273.960 Amount Heparin Sod,Pork in 0.45% 182.15 NaCl 25,000 unit In 0.45 % NaCl 1 250ml.bag @ 12 UNITS/KG/HR 7.932 mls/hr IV .Q24H [facility] Rx#: [id number] Norepinephrine 4 mg In 762.000 Sodium Chloride 0.9% 250 ml @ 0.03 MCG/KG/MIN 8. 814 mls/hr IV .Q24H [facility] Rx#:[id number] Norepinephrine 8 mg In 774.000 Sodium Chloride 0.9% 250 ml @ 0.03 MCG/KG/MIN 3. 994 mls/hr IV .Q24H [facility] Rx#:[id number] propofoL 1,000 mg In 23.057 144.810 Empty Bag 1 bag @ 15 MCG/ KG/MIN 6.94 mls/hr IV . [id number] [facility] Rx#:[id number] Tube Feeding 110 20 Other 60 Output: Urine 845 750 230 Other: Voiding Method Indwelling Catheter Indwelling Catheter ABP, PAP, CO, CI - Last Documented Arterial Blood Pressure 138/76 - Exam No acute distress, sedated, initially seen in the emergency department, and then in the intensive care unit, currently on propofol. HEENT examination is grossly unremarkable. Patient has an orally placed endotracheal tube. Neck supple. Full range of motion. No adenopathy thyromegaly or neck vein distention. Cardiovascular examination reveals regular rhythm rate. S1-S2 normal. No S3 or S4. No discernible murmur noted. Heart sounds are distant. Lungs reveal mild scattered rhonchi. No wheezes or crackles. Breath sounds are diminished on the right side. Abdomen soft without bowel sounds. Extremities are intact. No cyanosis clubbing or edema. The patient does move his left lower extremity from time to time. Skin is without rash or lesion. Neurologic examination cannot be adequately assessed at this time. - Labs CBC & Chem 7: 07/03/24 04:00 07/03/24 04:00 Labs: Abnormal Lab Results - Last 24 Hours (Table) 07/02/24 07/02/24 07/03/24 Range/Units 11:46 17:26 02:32 WBC (3.8-10.6) k/uL RBC (4.30-5.90) m/uL Hgb (13.0-17.5) gm/dL Hct (39.0-53.0) % MCV (80.0-100.0) fL MCH (25.0-35.0) pg MCHC (31.0-37.0) g/dL RDW (11.5-15.5) % Plt Count (150-450) k/uL APTT (22.0-30.0) sec ABG pCO2 (35-45) mmHg ABG pO2 (83-108) mmHg ABG HCO3 (21-25) mmol/L ABG O2 Saturation (94-97) % Hemoglobin (13.0-17.5) gm/dL Chloride (98-107) mmol/L Carbon Dioxide (22-30) mmol/L BUN (9-20) mg/dL Creatinine (0.66-1.25) mg/dL Glucose (74-99) mg/dL POC Glucose (mg/dL) 138 H 125 H 158 H (70-110) mg/dL Calcium (8.4-10.2) mg/dL 07/03/24 07/03/24 07/03/24 Range/Units 04:00 04:00 05:04 WBC 30.7 H (3.8-10.6) k/uL RBC 3.73 L (4.30-5.90) m/uL Hgb 8.3 L (13.0-17.5) gm/dL Hct 28.2 L (39.0-53.0) % MCV 75.5 L (80.0-100.0) fL MCH 22.2 L (25.0-35.0) pg MCHC 29.4 L (31.0-37.0) g/dL RDW 17.1 H (11.5-15.5) % Plt Count 611 H (150-450) k/uL APTT (22.0-30.0) sec ABG pCO2 28 L (35-45) mmHg ABG pO2 117 H (83-108) mmHg ABG HCO3 19 L (21-25) mmol/L ABG O2 Saturation 99.2 H (94-97) % Hemoglobin 8.5 L (13.0-17.5) gm/dL Chloride 116 H (98-107) mmol/L Carbon Dioxide 17 L (22-30) mmol/L BUN 4 L (9-20) mg/dL Creatinine 0.40 L (0.66-1.25) mg/dL Glucose 116 H (74-99) mg/dL POC Glucose (mg/dL) (70-110) mg/dL Calcium 7.8 L (8.4-10.2) mg/dL 07/03/24 07/03/24 Range/Units 06:08 06:08 WBC (3.8-10.6) k/uL RBC (4.30-5.90) m/uL Hgb (13.0-17.5) gm/dL Hct (39.0-53.0) % MCV (80.0-100.0) fL MCH (25.0-35.0) pg MCHC (31.0-37.0) g/dL RDW (11.5-15.5) % Plt Count (150-450) k/uL APTT 42.7 H (22.0-30.0) sec ABG pCO2 (35-45) mmHg ABG pO2 (83-108) mmHg ABG HCO3 (21-25) mmol/L ABG O2 Saturation (94-97) % Hemoglobin (13.0-17.5) gm/dL Chloride (98-107) mmol/L Carbon Dioxide (22-30) mmol/L BUN (9-20) mg/dL Creatinine (0.66-1.25) mg/dL Glucose (74-99) mg/dL POC Glucose (mg/dL) 131 H (70-110) mg/dL Calcium (8.4-10.2) mg/dL Microbiology - Last 24 Hours (Table) 07/02/24 05:59 Urine Culture - Final Urine,Catheterized 07/01/24 07:59 Gram Stain - Preliminary Sputum Sputum Culture - Preliminary Assessment and Plan Assessment: Acute respiratory failure, requiring intubation/mechanical ventilation, secondary to poor neurologic status, suspected CVA, and inability to protect ai [facility], June 30, 2024. Right parietal/temporal acute/subacute ischemic CVA, with evolving bilateral ischemic CVAs. History of advanced/stage IV lung cancer. History of recurrent right-sided pleural effusion. History of hyperlipidemia. History of hypertension. History of gastroesophageal reflux disease. History of diabetes mellitus. Polysubstance abuse. Plan: Plan dated July 01, 2024. The patient is seen initially in the emergency department, July 01, and then in the intensive care unit. A right radial arterial line was placed. A left subclavian vein triple-lumen catheter was placed and, the patient was reintubated because the cuff of the endotracheal tube was defective. All this was done in the intensive care unit, after the patient arrived. The patient's blood gases initially showed a pO2 that was greater than 420, pCO2 of 29, pH of 7.49. He remains on volume assist-control, rate 20, tidal volume 500, FiO2 40%, PEEP of 5. The patient is getting propofol at 30 mcg/kg/min. He is also getting saline at 120 cc an hour. Tube feedings will be started. Drug screen was positive for opiates, and cocaine. Labs, x-rays, and medications are reviewed. He was not a candidate for thrombolytic therapy, and all he got was Plavix, and aspirin. We will continue to follow make recommendations along the way. Apparently his is driving up to see him from [place]. Plan dated July 02, 2024. The patient is seen today in room 255. He remains on the mechanical ventilator. He has a completely opacified right chest. His most recent brain CT showed an acute/subacute parietal/temporal ischemic CVA. The is in the room. I discussed the case with her. The patient's FiO2 was reduced from 40% to 30% based on the pO2 of 172. The patient remains on propofol at 20 mcg/kg/min. The patient is on norepinephrine at 33 mcg/min. He is on heparin, via weight-based protocol. He is getting saline at 120 cc an hour. Tube feedings will be started today. Bronchoscopy will be performed today, to rule out mucous pl ugging on the right lung. Will also do an ultrasound of the right chest, to rule out pleural effusion. Prognosis is poor. We will continue to follow make recommendations where appropriate. His drug screen was positive for both opiates and cocaine. The was surprised to find out about that. Plan dated July 03, 2024. The patient is seen today in room 255. The patient remains on mechanical ventilator. Blood gases show pO2 117, pCO2 of 28, and a pH of 7.44. This blood gases consistent with a mixed acid-base disturbance, including a respiratory alkalosis and metabolic acidosis. The patient's ventilator settings include volume assist-control, rate 20, tidal volume 500, FiO2 30%, PEEP of 5. The patient remains on norepinephrine at 33 mcg/min. Vasopressin will be added and 0.03 units/min. The patient is getting propofol for sedation at 20 mcg/kg/min, and saline at 120 cc an hour. The patient is on heparin via weight-based protocol, and was started on trickle tube feeds with vital high-protein at 10 cc an hour. Results of the brain CT from yesterday are reviewed. His procalcitonin level was normal. Will check a cortisol level. Overall prognosis remains very poor. The patient does have advanced stage IV lung cancer. I was able to speak to the , yesterday, who flew up from [place]. Time with Patient: Greater than 30
--- NOTE | 2024-07-03 10:56 | P.PN ---
Subjective Progress Note Date: 07/03/24 Subjective: Patient seen and examined at bedside. No acute events overnight. Intubated and sedated. Per nurse, mostly has movement in left upper and lower extremity. Was having some went asynchrony, and propofol was increased at that time. Is having a lot of secretions. Vasopressin added on top of levo to reach goal systolic blood pressure 140. Mace catheter in place. Pertinent positives and negatives as discussed above, a complete review of systems was performed and all other systems are negative. Vitals Signs Reviewed. General: Intubated sedated Derm: Warm, dry Head: Atraumatic, normocephalic, symmetric Eyes: EOMI, no lid lag, anicteric sclera, bilateral periorbital edema Mouth: No lip lesion, mucus membranes moist Cardiovascular: S1S2 reg, no murmur Lungs: Breath sounds only noted in left side, mechanically ventilated Abdominal: Soft, nontender to palpation, no guarding, no appreciable organomegaly Ext: No gross muscle atrophy, right upper extremity edema, no contractures Neuro: Sedated, spontaneously moving left upper extremity and left lower extremity Psych: Unable to assess Data Reviewed Today: Pertinent Labs: WBC 13.7, hemoglobin 8.3, platelet 611, pH 7.44, pCO2 28, bicarb 17, creatinine 0.4, magnesium 1.7, blood glucose range between 1 16-1 58 Imaging: Chest x-ray independently interpreted, complete opacification of right lung Assessment and Plan: Active: Acute multifocal embolic ischemic strokes Acute encephalopathy secondary to above Bilateral carotid artery thrombus and stenosis -Patient currently on pressors to keep systolic blood pressure above 140 to maintain cerebral perfusion, continue normal saline 120 cc an hour -Continue aspirin 81 mg, atorvastatin 80 mg, heparin drip, monitor PTT, monitor for bleeding -Patient may require further CT head if any changes and neurologic activity -Neurology following, considering KAREN -Wean sedation if possible -ICU and vascular surgery following -Per conversation with , if no meaningful neurologic recovery, would likely consider end-of-life care Acute hypoxic respiratory failure Lung cancer on immunotherapy -ICU following, wean off of mechanical ventilation -Status post bronchoscopy, right opacification of lung likely secondary to lung cancer Severe leukocytosis Thrombocytosis Microcytic anemia -Culture pending -Possibly reactive -Will empirically started on IV Zosyn, MRSA nares pending -Monitor CBC Type 2 diabetes -Sliding scale insulin, every 6 hours, monitor for hypoglycemia Non-anion gap metabolic acidosis -Consider switching off of normal saline Resolved: Hyponatremia Hypokalemia Chronic: History of hypertension, dyslipidemia, anxiety/depression History of right upper extremity DVT DVT ppx: Heparin drip Code status: Full code Anticipated discharge place: Pending clinical course Anticipated discharge time: Pending clinical course Objective - Vital Signs Vital signs: Vital Signs Temp 97.9 F 07/03/24 08:00 Pulse 105 H 07/03/24 09:20 Resp 23 07/03/24 09:00 BP 131/97 07/03/24 09:00 Pulse Ox 100 07/03/24 09:00 FiO2 30 07/03/24 09:16 Intake & Output 07/02/24 07/03/24 07/03/24 18:59 06:59 18:59 Intake Total 2461.057 2746.960 389 Output Total 845 750 230 Balance 2468.698 8681.960 159 Weight 71.3 kg Intake: IV 1676 1476 369 Magnesium Sulfate-D5w Pmx 200 1 gm In Dextrose/Water 1 100ml.bag @ 100 mls/hr IVPB Q1H [facility] Rx#: [id number] Sodium Chloride 0.9% 1, 1440 1440 360 000 ml @ 120 mls/hr IV . Q8H20M [facility] Rx#:[id number] pressure bag 36 36 9 Intake, IV Titration 123.207 9654.960 Amount Heparin Sod,Pork in 0.45% 182.15 NaCl 25,000 unit In 0.45 % NaCl 1 250ml.bag @ 12 UNITS/KG/HR 7.932 mls/hr IV .Q24H [facility] Rx#: [id number] Norepinephrine 4 mg In 762.000 Sodium Chloride 0.9% 250 ml @ 0.03 MCG/KG/MIN 8. 814 mls/hr IV .Q24H [facility] Rx#:[id number] Norepinephrine 8 mg In 774.000 Sodium Chloride 0.9% 250 ml @ 0.03 MCG/KG/MIN 3. 994 mls/hr IV .Q24H [facility] Rx#:[id number] propofoL 1,000 mg In 23.057 144.810 Empty Bag 1 bag @ 15 MCG/ KG/MIN 6.94 mls/hr IV . [id number] [facility] Rx#:[id number] Tube Feeding 110 20 Other 60 Output: Urine 845 750 230 Other: Voiding Method Indwelling Catheter Indwelling Catheter ABP, PAP, CO, CI - Last Documented Arterial Blood Pressure 138/76 - Labs CBC & Chem 7: 07/03/24 04:00 07/03/24 04:00 Labs: Abnormal Lab Results - Last 24 Hours (Table) 07/02/24 07/02/24 07/03/24 Range/Units 11:46 17:26 02:32 WBC (3.8-10.6) k/uL RBC (4.30-5.90) m/uL Hgb (13.0-17.5) gm/dL Hct (39.0-53.0) % MCV (80.0-100.0) fL MCH (25.0-35.0) pg MCHC (31.0-37.0) g/dL RDW (11.5-15.5) % Plt Count (150-450) k/uL APTT (22.0-30.0) sec ABG pCO2 (35-45) mmHg ABG pO2 (83-108) mmHg ABG HCO3 (21-25) mmol/L ABG O2 Saturation (94-97) % Hemoglobin (13.0-17.5) gm/dL Chloride (98-107) mmol/L Carbon Dioxide (22-30) mmol/L BUN (9-20) mg/dL Creatinine (0.66-1.25) mg/dL Glucose (74-99) mg/dL POC Glucose (mg/dL) 138 H 125 H 158 H (70-110) mg/dL Calcium (8.4-10.2) mg/dL 07/03/24 07/03/24 07/03/24 Range/Units 04:00 04:00 05:04 WBC 30.7 H (3.8-10.6) k/uL RBC 3.73 L (4.30-5.90) m/uL Hgb 8.3 L (13.0-17.5) gm/dL Hct 28.2 L (39.0-53.0) % MCV 75.5 L (80.0-100.0) fL MCH 22.2 L (25.0-35.0) pg MCHC 29.4 L (31.0-37.0) g/dL RDW 17.1 H (11.5-15.5) % Plt Count 611 H (150-450) k/uL APTT (22.0-30.0) sec ABG pCO2 28 L (35-45) mmHg ABG pO2 117 H (83-108) mmHg ABG HCO3 19 L (21-25) mmol/L ABG O2 Saturation 99.2 H (94-97) % Hemoglobin 8.5 L (13.0-17.5) gm/dL Chloride 116 H (98-107) mmol/L Carbon Dioxide 17 L (22-30) mmol/L BUN 4 L (9-20) mg/dL Creatinine 0.40 L (0.66-1.25) mg/dL Glucose 116 H (74-99) mg/dL POC Glucose (mg/dL) (70-110) mg/dL Calcium 7.8 L (8.4-10.2) mg/dL 07/03/24 07/03/24 Range/Units 06:08 06:08 WBC (3.8-10.6) k/uL RBC (4.30-5.90) m/uL Hgb (13.0-17.5) gm/dL Hct (39.0-53.0) % MCV (80.0-100.0) fL MCH (25.0-35.0) pg MCHC (31.0-37.0) g/dL RDW (11.5-15.5) % Plt Count (150-450) k/uL APTT 42.7 H (22.0-30.0) sec ABG pCO2 (35-45) mmHg ABG pO2 (83-108) mmHg ABG HCO3 (21-25) mmol/L ABG O2 Saturation (94-97) % Hemoglobin (13.0-17.5) gm/dL Chloride (98-107) mmol/L Carbon Dioxide (22-30) mmol/L BUN (9-20) mg/dL Creatinine (0.66-1.25) mg/dL Glucose (74-99) mg/dL POC Glucose (mg/dL) 131 H (70-110) mg/dL Calcium (8.4-10.2) mg/dL Microbiology - Last 24 Hours (Table) 07/02/24 05:59 Urine Culture - Final Urine,Catheterized 07/01/24 07:59 Gram Stain - Preliminary Sputum Sputum Culture - Preliminary
--- NOTE | 2024-07-03 11:30 | P.PN ---
Subjective Progress Note Date: 07/03/24 The patient is a 68-year-old male who was seen in neurologic follow-up on July 03, 2024, in collaboration with Caitlin Jorge, via teleneurology. The patient's nurse is at the bedside at the time of the evaluation. She reports that he is on a low-dose of sedation, 20 mcg of propofol, to keep him c omfortable. She has not noted the patient to be opening his eyes. She does report that he moves his left leg. Apparently the night nurse noted that the patient also moved his left arm. This has not been visualized this morning. Patient had a bronchoscopy yesterday. His white blood cell count has jumped up to 30.7. He has increased secretions. Repeat CT scan of the brain performed yesterday revealed multiple, bilateral embolic infarcts Objective - Vital Signs Vital signs: Vital Signs Temp 97.9 F 07/03/24 08:00 Pulse 105 H 07/03/24 09:20 Resp 23 07/03/24 09:00 BP 131/97 07/03/24 09:00 Pulse Ox 100 07/03/24 09:00 FiO2 30 07/03/24 09:16 Intake & Output 07/02/24 07/03/24 07/03/24 18:59 06:59 18:59 Intake Total 2461.057 2746.960 389 Output Total 845 750 230 Balance 7472.887 5459.960 159 Weight 71.3 kg Intake: IV 1676 1476 369 Magnesium Sulfate-D5w Pmx 200 1 gm In Dextrose/Water 1 100ml.bag @ 100 mls/hr IVPB Q1H NIKITA Rx#: [id number] Sodium Chloride 0.9% 1, 1440 1440 360 000 ml @ 120 mls/hr IV . Q8H20M NIKITA Rx#:[id number] pressure bag 36 36 9 Intake, IV Titration 109.384 2945.960 Amount Heparin Sod,Pork in 0.45% 182.15 NaCl 25,000 unit In 0.45 % NaCl 1 250ml.bag @ 12 UNITS/KG/HR 7.932 mls/hr IV .Q24H NIKITA Rx#: [id number] Norepinephrine 4 mg In 762.000 Sodium Chloride 0.9% 250 ml @ 0.03 MCG/KG/MIN 8. 814 mls/hr IV .Q24H NIKITA Rx#:[id number] Norepinephrine 8 mg In 774.000 Sodium Chloride 0.9% 250 ml @ 0.03 MCG/KG/MIN 3. 994 mls/hr IV .Q24H NIKITA Rx#:[id number] propofoL 1,000 mg In 23.057 144.810 Empty Bag 1 bag @ 15 MCG/ KG/MIN 6.94 mls/hr IV . [id number] NIKITA Rx#:[id number] Tube Feeding 110 20 Other 60 Output: Urine 845 750 230 Other: Voiding Method Indwelling Catheter Indwelling Catheter ABP, PAP, CO, CI - Last Documented Arterial Blood Pressure 138/76 - Exam General: The patient is reclining in the bed. He is intubated. HEENT: Head is atraumatic, normocephalic. Fundus not visualized. There is noted to be scleral edema. Extremities: Patient has diffuse edema. Neurological examination Mental status: The patient does not open his eyes to verbal or noxious stimulation. He follows no commands. Cranial nerves: Pupils are pinpoint. Eyes are midline. He does not blink to vi sual threat. Oculocephalic reflexes are absent. The patient is breathing over the vent. Gag/cough reflex is intact with deep suctioning Motor: There is volitional movement of the left lower extremity. The patient follows no commands for strength testing. Sensation: There is withdrawal of noxious stimulation applied to the bilateral lower extremities. There is no withdrawal of the upper extremities from noxious stimulation. Deep tendon reflexes: Absent in the upper extremities and right knee. Left patellar reflex 2+/4+. Plantar responses not assessed at this time. - Labs CBC & Chem 7: 07/03/24 04:00 07/03/24 04:00 Labs: Abnormal Lab Results - Last 24 Hours (Table) 07/02/24 07/02/24 07/03/24 Range/Units 11:46 17:26 02:32 WBC (3.8-10.6) k/uL RBC (4.30-5.90) m/uL Hgb (13.0-17.5) gm/dL Hct (39.0-53.0) % MCV (80.0-100.0) fL MCH (25.0-35.0) pg MCHC (31.0-37.0) g/dL RDW (11.5-15.5) % Plt Count (150-450) k/uL APTT (22.0-30.0) sec ABG pCO2 (35-45) mmHg ABG pO2 (83-108) mmHg ABG HCO3 (21-25) mmol/L ABG O2 Saturation (94-97) % Hemoglobin (13.0-17.5) gm/dL Chloride (98-107) mmol/L Carbon Dioxide (22-30) mmol/L BUN (9-20) mg/dL Creatinine (0.66-1.25) mg/dL Glucose (74-99) mg/dL POC Glucose (mg/dL) 138 H 125 H 158 H (70-110) mg/dL Calcium (8.4-10.2) mg/dL 07/03/24 07/03/24 07/03/24 Range/Units 04:00 04:00 05:04 WBC 30.7 H (3.8-10.6) k/uL RBC 3.73 L (4.30-5.90) m/uL Hgb 8.3 L (13.0-17.5) gm/dL Hct 28.2 L (39.0-53.0) % MCV 75.5 L (80.0-100.0) fL MCH 22.2 L (25.0-35.0) pg MCHC 29.4 L (31.0-37.0) g/dL RDW 17.1 H (11.5-15.5) % Plt Count 611 H (150-450) k/uL APTT (22.0-30.0) sec ABG pCO2 28 L (35-45) mmHg ABG pO2 117 H (83-108) mmHg ABG HCO3 19 L (21-25) mmol/L ABG O2 Saturation 99.2 H (94-97) % Hemoglobin 8.5 L (13.0-17.5) gm/dL Chloride 116 H (98-107) mmol/L Carbon Dioxide 17 L (22-30) mmol/L BUN 4 L (9-20) mg/dL Creatinine 0.40 L (0.66-1.25) mg/dL Glucose 116 H (74-99) mg/dL POC Glucose (mg/dL) (70-110) mg/dL Calcium 7.8 L (8.4-10.2) mg/dL 07/03/24 07/03/24 Range/Units 06:08 06:08 WBC (3.8-10.6) k/uL RBC (4.30-5.90) m/uL Hgb (13.0-17.5) gm/dL Hct (39.0-53.0) % MCV (80.0-100.0) fL MCH (25.0-35.0) pg MCHC (31.0-37.0) g/dL RDW (11.5-15.5) % Plt Count (150-450) k/uL APTT 42.7 H (22.0-30.0) sec ABG pCO2 (35-45) mmHg ABG pO2 (83-108) mmHg ABG HCO3 (21-25) mmol/L ABG O2 Saturation (94-97) % Hemoglobin (13.0-17.5) gm/dL Chloride (98-107) mmol/L Carbon Dioxide (22-30) mmol/L BUN (9-20) mg/dL Creatinine (0.66-1.25) mg/dL Glucose (74-99) mg/dL POC Glucose (mg/dL) 131 H (70-110) mg/dL Calcium (8.4-10.2) mg/dL Microbiology - Last 24 Hours (Table) 07/02/24 05:59 Urine Culture - Final Urine,Catheterized 07/01/24 07:59 Gram Stain - Preliminary Sputum Sputum Culture - Preliminary Assessment and Plan Assessment: 1. 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 Cocaine abuse 3. Episode of unresponsiveness due to multifactorial could be due to above as well as polysubstance abuse 4. Significant left ICA stenosis, the right is 75% stenosis in the left is 90% stenosis on CT angiography. This is symptomatic. 5. Acute respiratory failure and the patient was intubated on a ventilator since inability to protect his airway 6. History is advanced stage IV lung cancer 7. History of recurrent right-sided pleural effusion 8. Hypertension 9. History of hyperlipidemia 10. Underlying history of diabetes mellitus 11. Polysubstance abuse Plan: 1. Cardiology consultation has been placed 2. Transesophageal echocardiogram has been ordered to assess for embolic source 3. Patient was on aspirin 300 mg once and was sent Plavix 75 mg once per the stroke attending recommendation. Today was started on aspirin 81 mg. During this hospital visit he was started on heparin drip because of history of DVT. 4. Will get a repeat CT of the head to rule out any significant stroke especially since he is on heparin drip. Once the patient is extubated will obtain MRI of the brain. 5. Patient is on Lipitor 80 mg nightly for secondary stroke fluxes 6. An EEG was ordered and preliminary does not show any active seizure or disch arges so I canceled the Keppra that was started yesterday since his symptoms are likely due to his stroke. 7. Vascular surgery team is consulted. 8. Recommend permissive hypertension and treat systolic if >210 and diastolic if >110. 9. Continue neurochecks 10. Cardiac monitoring 11. PT, OT and [facility] are consulted Will defer the rest of the medical management to primary other specialist Dr. Mcfadden will assume neurologic coverage of this patient as of July 04, 2024 Time with Patient: Greater than 30 (40 minutes were spent caring for this patient today including, obtaining history, examining the patient, reviewing imaging, chart documentation, labs, placing orders and creating this note)
[2024-07-03 12:10] LABS: Appearance,BF Clear (Clear)
[2024-07-03 13:00] LABS: Glucose,Whole Blood 121 mg/dL (70-110)
[2024-07-03] MEDS: PIPERACILLIN-TAZOBACTAM 3.375 GM in SODIUM CHLORIDE 0.9% 100 ML IVPB SCH (13:18)
[2024-07-03] MEDS ORDERED: fentaNYL (PF) 50 MCG/ML 5 ML AMP IVP PRN (13:29)
[2024-07-03] MEDS ORDERED: BENZOCAINE SPRAY 1 CAN TOPICAL PRN (13:29)
[2024-07-03] MEDS ORDERED: MIDAZOLAM 2 MG/2 ML VIAL IV PRN (13:29)
--- NOTE | 2024-07-03 13:29 | P.CRDCN ---
History of Present Illness Consult date: 07/03/24 Reason for Consult (text): KAREN History of present illness: The patient is a 68-year-old male who presented to the hospital with strokelike symptoms. Slurred speech, mental status changes and left-sided weakness. Patient was found to have a right parietal/temporal ischemic CVA. He was intubated for airway protection. Follow-up CT scan shows evolving multifocal acute/subacute CVAs and therefore cardiology was consulted for a KAREN. Echocar diogram shows preserved LV function with negative bubble study. No significant valvular abnormalities or evidence of vegetation/thrombus. Thus far the patient has not had any documented arrhythmias. DIAGNOSTICS: EKG shows sinus rhythm with right bundle branch block Telemetry shows sinus rhythm to sinus tachycardia Chest x-ray today shows opacified right hemothorax consistent with acute infiltrate/atelectasis CT scan of the brain shows evolving multifocal acute/subacute CVA's CTA of the head and neck show thrombus within the left internal carotid artery at 90% and 75% on the right Echocardiogram shows preserved LV function with no significant valvular abnormalities Lab data: WBC 30.7, hemoglobin 8.3, hematocrit 20.2, platelets 611, sodium 137, potassium 3.5, BUN 4, creatinine 0.4, magnesium 1.7, hemoglobin A1c is 5.2, triglycerides 71, LDL 24, HDL 23, TSH 1.95, positive for cocaine and opiates PHYSICAL EXAMINATION: This is a 68-year-old male. HEENT: Head is atraumatic, normocephalic. Mucous membranes of the mouth are moist. Neck is supple. There is no jugular venous distention. CHEST EXAMINATION: Lungs are diminished to auscultation. No chest wall tenderness is noted on palpation or with deep breathing. HEART EXAMINATION: Heart regular rate and rhythm. S1, S2 heard. No murmurs, gallops or rub. ABDOMEN: Soft, nontender. Bowel sounds are heard. No organomegaly noted. EXTREMITIES: 2+ peripheral pulses with no evidence of peripheral edema and no calf tenderness noted. NEUROLOGIC EXAMINATION: Nonresponsive. FINAL ASSESSMENT AND PLAN: Acute respiratory failure Right parietal/temporal ischemic CVA History of advanced stage IV lung cancer History of recurrent right-sided pleural effusion History of hyperlipidemia History of hypertension History of diabetes Polysubstance abuse Patient evaluated by Dr. Hopkins Per neurology in order to maintain blood pressure he is on a norepinephrine drip Called by the nurse for tachycardia at 140 beats a minute Twelve-lead EKG clearly shows sinus tachycardia, NOT atrial flutter or atrial fibrillation PLAN: In summary CT of the brain shows multifocal acute/subacute CVA consistent with embolic phenomena Normal LV function normal RV function, NO [id number] shunt No obvious valvular abnormalities or masses on 2D echo Significant stenosis bilaterally 75% right internal and 90% left internal Thrombus in the left internal carotid artery Opiates and cocaine positive tox screen Yesterday apparently neurology wanted a KAREN to look for intracardiac mass or thrombus. KAREN is NOT indicated in the absence of atrial fibrillation and in the presence of significant carotid atherosclerosis bilaterally with thrombus Consult vascular surgery instead. Continue heparin Past Medical History Past Medical History: Cancer, Diabetes Mellitus, GERD/Reflux, Hyperlipidemia, Hypertension Additional Past Medical History / Comment(s): lung cancer History of Any Multi-Drug Resistant Organisms: None Reported Past Surgical History: No Surgical Hx Reported Additional Past Surgical History / Comment(s): recent chest tube Past Anesthesia/Blood Transfusion Reactions: No Reported Reaction Additional Past Anesthesia/Blood Transfusion Reaction / Comment(s): Has never had General Anesthesia. Past Psychological History: No Psychological Hx Reported Smoking Status: Never smoker Past Alcohol Use History: Occasional Past Drug Use History: Marijuana - Past Family History Mother Family Medical History: Cancer Medications and Allergies Home Medications Medication Instructions Recorded Confirmed Type Capmatinib Hydrochloride [Tabrecta] 400 mg PO BID@0700,1600 05/18/24 06/30/24 History Ferrous Sulfate [Iron (65 MG 325 mg PO DAILY@0700 05/18/24 06/30/24 History Elemental)] Mirtazapine [Remeron] 15 mg PO HS 05/18/24 06/30/24 History Atorvastatin [Lipitor] 80 mg PO HS@1900 06/04/24 06/30/24 History Pantoprazole [Protonix] 40 mg PO BID@0700,1600 06/04/24 06/30/24 History methocarbamoL [Robaxin-750] 750 mg PO TID 06/04/24 06/30/24 History Acetaminophen [Tylenol 8 Hour] 650 mg PO Q6H PRN 06/30/24 06/30/24 History Enoxaparin [Lovenox] 60 mg SQ Q12HR@0700,1900 06/30/24 06/30/24 History Folic Acid 1 mg PO DAILY@0700 06/30/24 06/30/24 History HYDROcodone/APAP 10-325MG [Garfield 1 tab PO Q6H PRN 06/30/24 06/30/24 History 10-325] Healthshake 1 dose PO TID-W/MEALS 06/30/24 06/30/24 History Lidocaine 5% Patch [Lidoderm] 1 patch TRANSDERM DAILY@0700 06/30/24 06/30/24 History Magnesium Oxide [Mag-Ox] 400 mg PO BID@0700,1600 06/30/24 06/30/24 History Sennosides [Senokot] 8.6 mg PO BID 06/30/24 06/30/24 History amLODIPine [Norvasc] 10 mg PO DAILY@0700 06/30/24 06/30/24 History polyethylene glycoL 3350 [Miralax] 17 gm PO Q72H PRN 06/30/24 06/30/24 History Allergies Allergy/AdvReac Type Severity Reaction Status Date / Time benazepril AdvReac Angioedema Verified 06/30/24 21:17 simvastatin [From Zocor] AdvReac abnormal Verified 06/30/24 21:17 liver enzymes Physical Exam Vitals: Vital Signs Temp Pulse Resp BP Pulse Ox FiO2 07/03/24 12:23 100 07/03/24 12:17 30 07/03/24 12:16 98 07/03/24 12:00 98.1 F 100 25 H 100 30 07/03/24 11:30 100 26 H 100 07/03/24 11:15 100 25 H 100 07/03/24 11:00 103 H 25 H 100 07/03/24 10:45 104 H 23 100 07/03/24 10:30 105 H 26 H 100 07/03/24 10:15 105 H 26 H 100 07/03/24 10:00 103 H 23 100 07/03/24 09:45 101 H 24 100 07/03/24 09:30 106 H 23 100 07/03/24 09:20 105 H 07/03/24 09:16 30 07/03/24 09:15 105 H 38 H 131/97 100 07/03/24 09:12 105 H 07/03/24 09:00 106 H 23 131/97 100 30 07/03/24 08:45 108 H 22 131/97 100 07/03/24 08:30 105 H 20 131/97 100 07/03/24 08:15 98 20 131/97 100 07/03/24 08:00 97.9 F 102 H 20 131/97 100 30 07/03/24 07:45 101 H 20 131/97 100 07/03/24 07:30 101 H 20 131/97 100 07/03/24 07:15 101 H 20 131/97 100 07/03/24 07:00 101 H 20 100 07/03/24 06:45 102 H 20 100 07/03/24 06:30 103 H 21 100 07/03/24 06:15 105 H 23 100 07/03/24 06:00 105 H 23 100 07/03/24 05:45 107 H 26 H 100 07/03/24 05:30 109 H 24 100 07/03/24 05:15 106 H 25 H 100 07/03/24 05:00 107 H 23 100 07/03/24 04:45 106 H 27 H 100 07/03/24 04:30 108 H 21 100 07/03/24 04:15 109 H 24 100 07/03/24 04:00 111 H 22 131/97 100 30 07/03/24 03:57 109 H 07/03/24 03:47 108 H 30 07/03/24 03:45 109 H 23 100 07/03/24 03:30 108 H 22 100 07/03/24 03:15 112 H 26 H 100 07/03/24 03:00 106 H 22 100 07/03/24 02:45 106 H 22 100 07/03/24 02:30 109 H 23 100 07/03/24 02:15 112 H 22 100 07/03/24 02:00 112 H 27 H 131/97 100 07/03/24 01:45 114 H 27 H 131/97 100 07/03/24 01:30 112 H 21 131/97 100 07/03/24 01:15 112 H 23 131/97 100 07/03/24 01:00 113 H 23 131/97 100 07/03/24 00:45 109 H 26 H 131/97 100 07/03/24 00:30 113 H 22 134/93 07/03/24 00:15 134/93 97 07/03/24 00:00 117 H 29 H 134/93 100 30 07/02/24 23:49 123 H 07/02/24 23:45 121 H 34 H 134/93 100 07/02/24 23:42 122 H 30 07/02/24 23:30 121 H 25 H 134/93 100 07/02/24 23:15 121 H 28 H 100 07/02/24 23:00 117 H 26 H 100 07/02/24 22:45 117 H 25 H 100 07/02/24 22:30 118 H 25 H 100 07/02/24 22:15 120 H 26 H 100 07/02/24 22:11 113 H 22 100 07/02/24 22:00 115 H 23 100 07/02/24 21:45 112 H 21 99 07/02/24 21:30 113 H 22 100 07/02/24 21:15 114 H 25 H 100 07/02/24 21:00 114 H 22 100 07/02/24 20:45 120 H 22 100 07/02/24 20:30 115 H 24 100 07/02/24 20:15 117 H 22 100 07/02/24 20:00 100.6 F H 118 H 22 100 30 07/02/24 19:58 120 H 07/02/24 19:51 30 07/02/24 19:48 117 H 07/02/24 19:45 117 H 22 100 07/02/24 19:30 118 H 22 100 07/02/24 19:15 101.0 F H 120 H 27 H 100 07/02/24 19:00 123 H 26 H 100 07/02/24 18:45 120 H 28 H 100 07/02/24 18:30 122 H 30 H 100 07/02/24 18:15 123 H 26 H 100 07/02/24 18:00 100.1 F H 124 H 29 H 100 07/02/24 17:45 123 H 28 H 100 07/02/24 17:30 126 H 29 H 100 07/02/24 17:15 124 H 29 H 100 07/02/24 17:00 125 H 29 H 100 07/02/24 16:45 117 H 27 H 99 07/02/24 16:30 114 H 27 H 99 07/02/24 16:19 113 H 07/02/24 16:15 113 H 29 H 100 07/02/24 16:12 30 07/02/24 16:11 112 H 07/02/24 16:00 100.7 F H 108 H 25 H 100 30 07/02/24 15:45 112 H 24 99 07/02/24 15:30 110 H 28 H 100 07/02/24 15:15 112 H 30 H 100 07/02/24 15:00 114 H 2 L 99 07/02/24 14:45 114 H 31 H 99 07/02/24 14:30 113 H 31 H 97 07/02/24 14:15 114 H 32 H 97 07/02/24 14:00 122 H 34 H 96 07/02/24 13:45 125 H 20 100 07/02/24 13:30 113 H 20 97 Intake and Output 07/02/24 07/03/24 07/03/24 22:59 06:59 14:59 Intake Total 6654.965 7010.694 800.863 Output Total 465 515 640 Balance 3265.502 7805.694 160.863 Intake: IV 984 984 738 Sodium Chloride 0.9% 1, 960 960 720 000 ml @ 120 mls/hr IV . Q8H20M NIKITA Rx#:[id number] pressure bag 24 24 18 Intake, IV Titration 742.266 612.694 22.863 Amount Heparin Sod,Pork in 0.45% 182.15 NaCl 25,000 unit In 0.45 % NaCl 1 250ml.bag @ 12 UNITS/KG/HR 7.932 mls/hr IV .Q24H NIKITA Rx#: [id number] Norepinephrine 4 mg In 254.000 Sodium Chloride 0.9% 250 ml @ 0.03 MCG/KG/MIN 8. 814 mls/hr IV .Q24H NIKITA Rx#:[id number] Norepinephrine 8 mg In 258 516.000 Sodium Chloride 0.9% 250 ml @ 0.03 MCG/KG/MIN 3. 994 mls/hr IV .Q24H NIKITA Rx#:[id number] propofoL 1,000 mg In 48.116 96.694 22.863 Empty Bag 1 bag @ 15 MCG/ KG/MIN 6.94 mls/hr IV . [id number] NIKITA Rx#:[id number] Tube Feeding 30 80 40 Other 30 30 Output: Urine 465 515 640 Other: Voiding Method Indwelling Catheter Indwelling Catheter Indwelling Catheter Weight 71.3 kg ABP, PAP, CO, CI - Last 8 Hours Arterial Blood Pressure 149/82 Arterial Blood Pressure 152/82 Arterial Blood Pressure 149/78 Arterial Blood Pressure 147/80 Arterial Blood Pressure 145/81 Arterial Blood Pressure 149/82 Arterial Blood Pressure 150/81 Arterial Blood Pressure 151/78 Arterial Blood Pressure 150/79 Arterial Blood Pressure 143/77 Arterial Blood Pressure 147/79 Arterial Blood Pressure 138/76 Arterial Blood Pressure 132/75 Arterial Blood Pressure 124/71 Arterial Blood Pressure 143/76 Arterial Blood Pressure 134/74 Arterial Blood Pressure 141/75 Arterial Blood Pressure 140/75 Arterial Blood Pressure 146/76 Arterial Blood Pressure 126/68 Arterial Blood Pressure 144/75 Arterial Blood Pressure 142/75 Arterial Blood Pressure 140/73 Arterial Blood Pressure 142/76 Arterial Blood Pressure 141/75 Arterial Blood Pressure 140/76 Results 07/03/24 04:00 07/03/24 04:00 Coagulation 07/03/24 Range/Units 06:08 APTT 42.7 H (22.0-30.0) sec CBC 07/03/24 Range/Units 04:00 WBC 30.7 H (3.8-10.6) k/uL RBC 3.73 L (4.30-5.90) m/uL Hgb 8.3 L (13.0-17.5) gm/dL Hct 28.2 L (39.0-53.0) % Plt Count 611 H (150-450) k/uL Comprehensive Metabolic Panel 07/03/24 Range/Units 04:00 Sodium 137 (137-145) mmol/L Potassium 3.5 (3.5-5.1) mmol/L Chloride 116 H (98-107) mmol/L Carbon Dioxide 17 L (22-30) mmol/L BUN 4 L (9-20) mg/dL Creatinine 0.40 L (0.66-1.25) mg/dL Glucose 116 H (74-99) mg/dL Calcium 7.8 L (8.4-10.2) mg/dL Current Medications Generic Name Dose Route Start Last Admin Trade Name Freq PRN Reason Stop Dose Admin Acetaminophen 650 mg 07/02/24 18:19 07/02/24 18:29 Acetaminophen Tab 325 Mg Tab PO 650 mg Q6HR PRN Administration Fever and/ or Mild Pain Albuterol/Ipratropium 3 ml 07/01/24 08:00 07/03/24 12:16 Ipratropium-Albuterol 3 Ml Neb INHALATION 3 ml RT-Q4H NIKITA Administration Aspirin 81 mg 07/01/24 10:15 07/03/24 08:20 Aspirin 81 Mg PO 81 mg DAILY NIKITA Administration Atorvastatin Calcium 80 mg 07/01/24 19:00 07/02/24 20:00 Atorvastatin 80 Mg Tab PO 80 mg HS@1900 NIKITA Administration Chlorhexidine Gluconate 15 ml 07/01/24 10:15 07/03/24 08:20 Chlorhexidine Gluconate 15 Ml Cup MUCOUS MEM 15 ml BID NIKITA Administration Dextrose/Water 25 ml 07/01/24 00:06 Dextrose 50% Syringe 50 Ml IVP PER PROTOCOL PRN Hypoglycemia Protocol Dextrose/Water 50 ml 07/01/24 00:06 Dextrose 50% Syringe 50 Ml IVP PER PROTOCOL PRN Hypoglycemia Protocol Heparin Sodium (Porcine) 0 unit 07/01/24 17:09 Heparin Sodium 1,000 Un/Ml (10ml Vl) IV PER PROTOCOL PRN Low PTT Protocol Propofol 1,000 mg/ IV Solution 100 mls @ 6.94 mls/hr 06/30/24 20:45 07/03/24 08:15 IV 10 mcg/kg/min .[id number] NIKITA 4.627 mls/hr Titration Protocol 15 MCG/KG/MIN Sodium Chloride 1,000 mls @ 120 mls/hr 07/01/24 05:30 07/03/24 05:45 Saline 0.9% IV 120 mls/hr .Q8H20M NIKITA Administration Heparin Sodium/Sodium Chloride 250 mls @ 7.932 mls/hr 07/01/24 17:15 07/02/24 21:27 25,000 unit/ Sodium Chloride IV 14 units/kg/hr .Q24H NIKITA 9.254 mls/hr Administration Protocol 12 UNITS/KG/HR Norepinephrine Bitartrate 8 mg 258 mls @ 3.994 mls/hr 07/02/24 16:30 07/03/24 07:01 / Sodium Chloride IV 0.47 mcg/kg/min .Q24H NIKITA 62.57 mls/hr Administration Protocol 0.03 MCG/KG/MIN Vasopressin 60 unit/ Sodium 153 mls @ 4.59 mls/hr 07/03/24 08:50 12/15/24 09:19 Chloride IV 0.03 units/min .Q24H NIKITA 4.59 mls/hr Administration Protocol 0.03 UNITS/MIN Piperacillin Sod/Tazobactam 100 mls @ 25 mls/hr 07/03/24 12:00 07/03/24 13:18 Sod 3.375 gm/ Sodium Chloride IVPB 25 mls/hr Q8H NIKITA Administration Protocol Insulin Aspart 0 unit 07/01/24 18:00 07/03/24 13:16 Insulin Aspart (Novolog) 100 Unit/Ml Vial SQ Not Given Q6H NIKITA Protocol Mirtazapine 15 mg 07/01/24 21:00 07/02/24 20:28 Mirtazapine 15 Mg Tab PO 15 mg HS NIKITA Administration Miscellaneous Information 1 each 07/01/24 13:22 Magnesium Replacement Protocol 1 Each Mis MISCELLANE DAILY PRN Per Protocol Protocol Miscellaneous Information 1 each 07/01/24 16:56 Potassium Replacement Protocol 1 Each Misc MISCELLANE DAILY PRN Per Protocol Protocol Pantoprazole Sodium 40 mg 07/01/24 09:00 07/03/24 08:19 Pantoprazole 40 Mg/10 Ml Vial IVP 40 mg DAILY NIKITA Administration Intake and Output 07/02/24 07/03/24 07/03/24 22:59 06:59 14:59 Intake Total 2410.082 0882.694 800.863 Output Total 465 515 640 Balance 1047.744 1852.694 160.863 Intake: IV 984 984 738 Sodium Chloride 0.9% 1, 960 960 720 000 ml @ 120 mls/hr IV . Q8H20M NIKITA Rx#:[id number] pressure bag Intake, IV Titration 742.266 612.694 22.863 Amount Heparin Sod,Pork in 0.45% 182.15 NaCl 25,000 unit In 0.45 % NaCl 1 250ml.bag @ 12 UNITS/KG/HR 7.932 mls/hr IV .Q24H NIKITA Rx#: [id number] Norepinephrine 4 mg In 254.000 Sodium Chloride 0.9% 250 ml @ 0.03 MCG/KG/MIN 8. 814 mls/hr IV .Q24H NIKITA Rx#:[id number] Norepinephrine 8 mg In 258 516.000 Sodium Chloride 0.9% 250 ml @ 0.03 MCG/KG/MIN 3. 994 mls/hr IV .Q24H NIKITA Rx#:[id number] propofoL 1,000 mg In 48.116 96.694 22.863 Empty Bag 1 bag @ 15 MCG/ KG/MIN 6.94 mls/hr IV . [id number] NIKITA Rx#:[id number] Tube Feeding 30 80 40 Other 30 30 Output: Urine 465 515 640 Other: Voiding Method Indwelling Catheter Indwelling Catheter Indwelling Catheter Weight 71.3 kg 07/03/24 04:00 07/03/24 04:00
[2024-07-03 17:59] LABS: Glucose,Whole Blood 127 mg/dL (70-110)
[2024-07-03] MEDS ORDERED: Potassium Replacement Protocol 1 EACH MISC MISCELLANE PRN ×2 (18:40→19:01)
[2024-07-03] MEDS: POTASSIUM CHLORIDE 20 MEQ in WATER FOR INJECTION 1 100ML.BAG IVPB SCH (19:26)
[2024-07-03 23:09] LABS: Glucose,Whole Blood 135 mg/dL (70-110)
[2024-07-04 04:56] LABS: Glucose,Whole Blood 120 mg/dL (70-110)
[2024-07-04 05:11] LABS: Anisocytosis Slight; Basophils % (A) 0 %; Eosinophils % (A) 0 %; HCT 27.4 % (39.0-53.0); Hypochromasia Marked; Lymphocytes # (A) 0.8 k/uL (1.0-4.8); Lymphocytes % (A) 3 %; MCH 21.8 pg (25.0-35.0); MCHC 29.2 g/dL (31.0-37.0); MCV 74.9 fL (80.0-100.0); Mean Platelet Volume 8.3; Microcytosis Slight; Monocytes # (A) 1.1 k/uL (0-1.0); Monocytes % (A) 4 %; Neutrophils # (A) 24.6 k/uL (1.3-7.7); Neutrophils % (A) 92 %; Platelet Count 586 k/uL (150-450); Poikilocytosis Slight; RBC 3.66 m/uL (4.30-5.90); RDW 16.9 % (11.5-15.5); WBC 26.8 k/uL (3.8-10.6)
[2024-07-04 05:25] LABS: ALT 10 U/L (4-49); AST 22 U/L (17-59); African American GFR (CKD) >90 (>60 ml/min/1.73 sqM); Albumin 1.9 g/dL (3.5-5.0); Alkaline Phosphatase 106 U/L (38-126); Anion Gap 5 mmol/L; Blood Urea Nitrogen 5 mg/dL (9-20); Calcium 7.7 mg/dL (8.4-10.2); Carbon Dioxide 19 mmol/L (22-30); Chloride 115 mmol/L (98-107); Glucose 119 mg/dL (74-99); Magnesium 1.6 mg/dL (1.6-2.3); Non-African American GFR(CKD) >90 (>60 ml/min/1.73 sqM); Potassium 3.6 mmol/L (3.5-5.1); Sodium 139 mmol/L (137-145); Total Bilirubin 0.5 mg/dL (0.2-1.3); Total Protein 5.4 g/dL (6.3-8.2)
[2024-07-04 05:28] LABS: ABG Base Excess -4.1 mmol/L; ABG HCO3 20 mmol/L (21-25); ABG Oxygen Saturation 98.9 % (94-97); ABG PCO2 30 mmHg (35-45); ABG PH 7.43 (7.35-7.45); ABG PO2 109 mmHg (83-108); ABG TCO2 21 mmol/L (19-24); Allen Test Performed? Yes
[2024-07-04] MEDS: POTASSIUM CHLORIDE 20 MEQ in WATER FOR INJECTION 1 100ML.BAG IVPB ONE (06:25)
[2024-07-04] MEDS ORDERED: POTASSIUM CHLORIDE 10 MEQ in WATER FOR INJECTION 1 100ML.BAG IVPB SCH (07:00)
--- NOTE | 2024-07-04 08:22 | XR ---
EXAMINATION TYPE: XR chest 1V portable DATE OF EXAM: 07/04/2024 5:06 AM COMPARISON: 07/03/2024 CLINICAL INDICATION: Male, 68 years old with history of Tube placement, FINDINGS: Indwelling tubes and catheters are unchanged. Complete opacification right hemithorax is unchanged. Small left-sided effusion. Stable appearance of the cardio-mediastinal structures at this time. IMPRESSION: 1. Stable portable chest. Clinical correlation and follow up until resolution is recommended. [facility], , 07/04/2024 8:19 AM
[2024-07-04] MEDS: MAGNESIUM SULFATE-D5W PMX 1 GM in DEXTROSE/WATER 1 100ML.BAG IVPB SCH (08:39)
--- NOTE | 2024-07-04 09:05 | P.PN ---
Subjective Progress Note Date: 07/04/24 Principal diagnosis: Multifocal embolic cerebral infarcts with severe carotid stenosis bilaterally. Mr. Armendariz is a 68-year-old -[place] male with history of advanced lung cancer, deep venous thrombosis, diabetes, gastroesophageal reflux disease, hypertension, hyperlipidemia. He was admitted to [facility] on June 30 with altered mental status as well as slurred speech and left-sided weakness. He may have had a gaze to the left initially however EEG performed July 01 revealed only slowing without epileptiform discharges. He was intubated and placed initially on Keppra but this was discontinued after his negative EEG. On July 01 he was noted to be overbreathing the ventilator and a CT head from July 02 revealed multifocal embolic appearing infarcts in the right parietal, left occipital, bilateral frontal areas as well as left left basal ganglia and caudate. His CT angiogram in June 30 reveals a fibrofatty thrombus in the bilateral internal carotid artery with 90% stenosis of the left internal carotid artery and 75% stenosis on the right. Vascular surgery has been consulted and is considering carotid endarterectomy based on the patient's clinical course. He is currently anticoagulated on heparin drip as well as taking aspirin 81 mg daily. On exam July 04, 2024, the patient is sedated on propofol drip. However when this is weaned the patient is minimally arousable though he will not follow commands. He exhibits minimal withdrawal with his left upper and lower extremity and does not move the right upper and lower extremity. I do not detect a Babinski sign on the left foot and the right foot is equivocal. Nursing notes that he was moving spontaneously with his left arm and leg earlier this morning and he does exhibit some spontaneous movement but pinched on the left lower extremity. Pupils are pinpoint and unreactive and he does not blink to threat. Assessment: Mr. Armendariz is a 68-year-old -[place] male with history of advanced lung cancer as well as DVT for which she was taking Lovenox. He presents with evidence of multifocal embolic appearing cerebral infarcts which is developed likely since July [address] appeared relatively normal at that time. He is current on currently on heparin drip for anticoagulation but exhibits minimal responsiveness. Plan: 1. Patient will remain on heparin drip for the time being. He may need serial CT scans to look for any evidence of hemorrhage however this is unlikely considering the excess the clot confluence of his infarcts is not very severe . 2. Vascular surgery has been consulted and is recommending possible carotid endarterectomy based on the patient's clinical course. He is currently intubated and sedated at this time. 3. Transesophageal echocardiogram has been discontinued by cardiology and light of the fact the patient has fibrofatty thrombus in bilateral intraparotid arteries which likely accounts for his embolic infarcts. 4. Patient should receive an MRI of the brain without contrast once extubated and neurology will continue to follow him on an intermittent basis and order this when needed. Objective - Vital Signs Vital signs: Vital Signs Temp 98.9 F 07/04/24 04:00 Pulse 101 H 07/04/24 08:19 Resp 20 07/04/24 08:19 BP 135/94 07/03/24 20:15 Pulse Ox 100 07/04/24 07:00 FiO2 30 07/04/24 08:25 Intake & Output 07/03/24 07/04/24 07/04/24 18:59 06:59 18:59 Intake Total 2182.751 2613.841 275.038 Output Total 1005 1045 60 Balance 1782.809 2434.841 215.038 Weight 74.7 kg Intake: IV 1476 1476 123 Sodium Chloride 0.9% 1, 1440 1440 120 000 ml @ 120 mls/hr IV . Q8H20M [facility] Rx#:[id number] pressure bag 36 36 3 Intake, IV Titration 288.187 1533.841 152.038 Amount Heparin Sod,Pork in 0.45% 250 NaCl 25,000 unit In 0.45 % NaCl 1 250ml.bag @ 12 UNITS/KG/HR 7.932 mls/hr IV .Q24H NIKITA Rx#: [id number] Norepinephrine 8 mg In 341.427 759.451 44.709 Sodium Chloride 0.9% 250 ml @ 0.03 MCG/KG/MIN 3. 994 mls/hr IV .Q24H [facility]IKITA Rx#:[id number] Piperacillin-Tazobactam 3 100 .375 gm In Sodium Chloride 0.9% 100 ml @ 25 mls/hr IVPB Q8H [facility]IKITA Rx#: [id number] Vasopressin 60 unit In 107.329 Sodium Chloride 0.9% 150 ml @ 0.03 UNITS/MIN 4.59 mls/hr IV .Q24H [facility]IKITA Rx#: [id number] propofoL 1,000 mg In 85.324 98.39 Empty Bag 1 bag @ 15 MCG/ KG/MIN 6.94 mls/hr IV . [id number] [facility]IKITA Rx#:[id number] Tube Feeding 120 30 Other 60 Output: Urine 1005 1045 60 Other: Voiding Method Indwelling Catheter Indwelling Catheter # Bowel Movements 2 2 ABP, PAP, CO, CI - Last Documented Arterial Blood Pressure 134/87 - Labs CBC & Chem 7: 07/04/24 05:00 07/04/24 05:00 Labs: Abnormal Lab Results - Last 24 Hours (Table) 07/03/24 07/03/24 07/03/24 Range/Units 12:59 17:55 17:57 WBC (3.8-10.6) k/uL RBC (4.30-5.90) m/uL Hgb (13.0-17.5) gm/dL Hct (39.0-53.0) % MCV (80.0-100.0) fL MCH (25.0-35.0) pg MCHC (31.0-37.0) g/dL RDW (11.5-15.5) % Plt Count (150-450) k/uL Neutrophils # (1.3-7.7) k/uL Lymphocytes # (1.0-4.8) k/uL Monocytes # (0-1.0) k/uL APTT (22.0-30.0) sec ABG pCO2 (35-45) mmHg ABG pO2 (83-108) mmHg ABG HCO3 (21-25) mmol/L ABG O2 Saturation (94-97) % Hemoglobin (13.0-17.5) gm/dL Potassium 3.3 L (3.5-5.1) mmol/L Chloride (98-107) mmol/L Carbon Dioxide (22-30) mmol/L BUN (9-20) mg/dL Creatinine (0.66-1.25) mg/dL Glucose (74-99) mg/dL POC Glucose (mg/dL) 121 H 127 H (70-110) mg/dL Calcium (8.4-10.2) mg/dL Total Protein (6.3-8.2) g/dL Albumin (3.5-5.0) g/dL 07/03/24 07/04/24 07/04/24 Range/Units 23:08 04:55 05:00 WBC 26.8 H (3.8-10.6) k/uL RBC 3.66 L (4.30-5.90) m/uL Hgb 8.0 L (13.0-17.5) gm/dL Hct 27.4 L (39.0-53.0) % MCV 74.9 L (80.0-100.0) fL MCH 21.8 L (25.0-35.0) pg MCHC 29.2 L (31.0-37.0) g/dL RDW 16.9 H (11.5-15.5) % Plt Count 586 H (150-450) k/uL Neutrophils # 24.6 H (1.3-7.7) k/uL Lymphocytes # 0.8 L (1.0-4.8) k/uL Monocytes # 1.1 H (0-1.0) k/uL APTT (22.0-30.0) sec ABG pCO2 (35-45) mmHg ABG pO2 (83-108) mmHg ABG HCO3 (21-25) mmol/L ABG O2 Saturation (94-97) % Hemoglobin (13.0-17.5) gm/dL Potassium (3.5-5.1) mmol/L Chloride (98-107) mmol/L Carbon Dioxide (22-30) mmol/L BUN (9-20) mg/dL Creatinine (0.66-1.25) mg/dL Glucose (74-99) mg/dL POC Glucose (mg/dL) 135 H 120 H (70-110) mg/dL Calcium (8.4-10.2) mg/dL Total Protein (6.3-8.2) g/dL Albumin (3.5-5.0) g/dL 07/04/24 07/04/24 07/04/24 Range/Units 05:00 05:00 05:21 WBC (3.8-10.6) k/uL RBC (4.30-5.90) m/uL Hgb (13.0-17.5) gm/dL Hct (39.0-53.0) % MCV (80.0-100.0) fL MCH (25.0-35.0) pg MCHC (31.0-37.0) g/dL RDW (11.5-15.5) % Plt Count (150-450) k/uL Neutrophils # (1.3-7.7) k/uL Lymphocytes # (1.0-4.8) k/uL Monocytes # (0-1.0) k/uL APTT 40.8 H (22.0-30.0) sec ABG pCO2 30 L (35-45) mmHg ABG pO2 109 H (83-108) mmHg ABG HCO3 20 L (21-25) mmol/L ABG O2 Saturation 98.9 H (94-97) % Hemoglobin 8.1 L (13.0-17.5) gm/dL Potassium (3.5-5.1) mmol/L Chloride 115 H (98-107) mmol/L Carbon Dioxide 19 L (22-30) mmol/L BUN 5 L (9-20) mg/dL Creatinine 0.44 L (0.66-1.25) mg/dL Glucose 119 H (74-99) mg/dL POC Glucose (mg/dL) (70-110) mg/dL Calcium 7.7 L (8.4-10.2) mg/dL Total Protein 5.4 L (6.3-8.2) g/dL Albumin 1.9 L (3.5-5.0) g/dL Microbiology - Last 24 Hours (Table) 07/02/24 09:32 Gram Stain - Preliminary Bronchoalviolar Lavage - Right 07/02/24 06:05 Blood Culture - Preliminary Blood 07/01/24 07:59 Gram Stain - Final Sputum Sputum Culture - Final 07/02/24 05:59 Urine Culture - Final Urine,Catheterized
[2024-07-04] MEDS: SODIUM CHLORIDE 0.9% 1,000 ML IV SCH (09:13)
--- NOTE | 2024-07-04 09:46 | XR ---
EXAMINATION TYPE: XR chest 1V portable DATE OF EXAM: 07/04/2024 9:23 AM COMPARISON: 07/04/2024 CLINICAL INDICATION: Male, 68 years old with history of tube exchange, line placement, FINDINGS: Indwelling tubes and catheters are unchanged. Opacification right hemithorax unchanged from prior study. Left lung is stable. Stable appearance of the cardio-mediastinal structures at this time. IMPRESSION: 1. Stable portable chest. Clinical correlation and follow up until resolution is recommended. [facility], , 07/04/2024 9:44 AM
[2024-07-04 11:42] LABS: Glucose,Whole Blood 117 mg/dL (70-110)
--- NOTE | 2024-07-04 12:44 | P.PN ---
Subjective Progress Note Date: 07/04/24 68-year-old black male with a history of multiple medical problems including advanced lung cancer, right pleural effusion, hyperlipidemia, hypertension, GERD, type 2 diabetes. The patient presented to the emergency department, at about 8:00 PM on June 30, with strokelike symptoms. He apparently was found to have slurred speech. He apparently became incoherent, and was apparently struggling to move the left side of his body. EMS was called and he was brought into the emergency department. The patient apparently was not able to protect his airway, and required intubation and mechanical ventilation. I did speak to Dr. Rodriguez in the emergency department. The patient is transferred to the intensive care unit, for further monitoring and management. The patient's drug screen was positive for opiates and cocaine. That may have had some effect on his neurologic issues. He is currently on volume assist-control, rate 20, tidal volume 500, FiO2 40%, PEEP of 5. Blood gases initially showed a pO2 that was greater than 420, pCO2 29, pH of 7.49. The patient is on propofol at 30 mcg/kg/min, saline at 120 cc an hour. When the patient came to the intensive care unit, we placed a right radial art line, a left subclavian triple-lumen catheter, and because his endotracheal tube was defective, we replaced the endotracheal tube with a #8 endotracheal tube. Current laboratory data includes a white count of 8.6, hemoglobin 7.8, hematocrit 26.6, platelet count of 508,000. Sodium 135, potassium 3.2, chlorides 108, CO2 21, BUN 5, and creatinine 0.58. Calcium 7.5, magnesium 1.5. Albumin 2. Urine is negative. Drug screen was positive for opiates, oxycodone, and cocaine. Viral studies were negative. Chest x-ray showed an opacified right hemithorax. Progress note dated July 02, 2024. 68-year-old black male seen today in room 255. His , flew up from [place] last night, and is at the bedside. The patient is currently on volume assist- control, rate 20, tidal volume 500, FiO2 40%, PEEP of 5. Blood gases show pO2 172, pCO2 25, pH of 7.48. The FiO2 was reduced down to 30%. The patient is on propofol at 20 mcg/kg/min, norepinephrine at 33 mcg/min, heparin via weight- based protocol, and saline at 120 cc an hour. The patient CT scan of the brain revealed a an evolving CVA, involving the right side, with left-sided weakness. The patient will have tube feeds started. In addition, chest x-ray reveals an opacified right hemithorax, and bronchoscopy will be done this morning. White count 15.2, hemoglobin 8.8, hematocrit 29.1, platelet count of 659,000. PT 1 2.8, INR 1.2. Sodium 137, potassium 3.6, chlorides 111, CO2 19, BUN 4, creatinine 0.47. Glucose was 164. Calcium 7.6. Magnesium 1.6. Chest x-ray reveals a right opacified hemithorax. CT scan of the reveals acute/subacute ischemia in the right parietotemporal area, and right frontal lobe. Progress note dated July 03, 2024. 68-year-old black male seen again in room 255. The patient has a history of lung cancer, advanced. The patient presented with neurologic findings, and was found to have a right sided CVA, and more recently, a another CT scan of the brain revealed additional damage to the left side of his brain. The patient remains on the ventilator. He is on volume assist-control, rate 20, tidal volume 500, 30% FiO2, PEEP of 5. Blood gases show pO2 117, pCO2 of 28, pH of 7.44. The patient is on norepinephrine at 33 mcg/min, propofol at 20 mcg/kg/min, 0.9 to 120 cc an hour, and heparin via weight-based protocol. The patient is getting vital high-protein at 10 cc an hour. Repeat brain CT showing extension, was done yesterday, July 02. He now has bilateral ischemic strokes. The patient only moves his left lower extremity. Because of his higher doses of norepinephrine, will add vasopressin. His procalcitonin level was within normal range. We will check a cortisol level for adrenal insufficiency. Chest x-ray shows an opacified right chest. Bronchoscopy yesterday revealed significant secretions and disease, in the right lower lobe. White count 30.7, hemoglobin 8.3, hematocrit 28.2, platelet count 611,000. PTT is 42.7. Sodium 137, potassium 3.5, chlorides 116, CO2 17, BUN 4, creatinine 0.40. Glucose 131. Cultures thus far negative. Procalcitonin level is normal. Chest x-ray is unchanged. 07/04/2024, the patient is being seen for a follow-up. This morning, the patient remains sedated on propofol which is running at 20 mcg/kg/min. Remains intubated on the mechanical ventilator. He is on assist-control mode of mechanical ventilation at rate of 20, tidal volume of 500, FiO2 of 30% with a PEEP of 5. The peak airway pressure is 19. Chest x-ray from today shows complete opacification of the right lung. ET tube is in a good location. Left lung is relatively clear and there is a small left-sided pleural effusion. The blood gases from today showed a pH of 7.43 with a pCO2 of 30 and pO2 of 109. The patient has limited respiratory secretions. There is considerable amount of air leak around the ET tube and a cuff is probably blown. The bronchoscopy was done and the cultures were essentially negative. The patient is covered empirically with IV Zosyn. He remains hypotensive and he remains on norepinephrine which is running at 0.25 mcg/kg/min. IV fluids are running at 125 cc an hour of normal saline. Patient remains on IV heparin. The net fluid balance over the past 24 hours and has been in the order of 2.7 L. Blood work from today shows a white cell count of 26, hemoglobin of 8 and a platelet count of 586. Sodium is at 136, potassium is at 3.6, chloride is 1 of 15 with a bicarb of 19. BUN is 5 with a creatinine of 0.44. LFTs are essentially within normal limits. Serum cortisol is 22.3. Blood culture is negative. Bronchoscopy and the bronchoalveolar lavage there is also negative. Enteral feeding is currently on hold due to high residuals. Prior to that, the patient was on vital high-protein at the rate of 10 cc an hour. 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 He has minimal withdrawal in his left upper extremity and lower extremities and does not move his right side. Negative for Babinski sign on the left and the right foot is equivocal. Pupils are pinpoint and unreactive and the patient remains on propofol. Neurology is on the case. Vascular surgery has been consulted regarding the bilateral carotid artery disease. No plans to do a KAREN at this point in time. Objective - Vital Signs Vital signs: Vital Signs Temp 98.9 F 07/04/24 04:00 Pulse 98 07/04/24 07:00 Resp 21 07/04/24 07:00 BP 135/94 07/03/24 20:15 Pulse Ox 100 07/04/24 07:00 FiO2 30 07/04/24 04:00 Intake & Output 07/03/24 07/04/24 07/04/24 18:59 06:59 18:59 Intake Total 2182.751 2613.841 123 Output Total 1005 1045 60 Balance 1681.505 4659.841 63 Weight 74.7 kg Intake: IV 1476 1476 123 Sodium Chloride 0.9% 1, 1440 1440 120 000 ml @ 120 mls/hr IV . Q8H20M [facility] Rx#:[id number] pressure bag 36 36 3 Intake, IV Titration 931.655 4210.841 Amount Heparin Sod,Pork in 0.45% 250 NaCl 25,000 unit In 0.45 % NaCl 1 250ml.bag @ 12 UNITS/KG/HR 7.932 mls/hr IV .Q24H [facility] Rx#: [id number] Norepinephrine 8 mg In 341.427 759.451 Sodium Chloride 0.9% 250 ml @ 0.03 MCG/KG/MIN 3. 994 mls/hr IV .Q24H [facility] Rx#:[id number] Piperacillin-Tazobactam 3 100 .375 gm In Sodium Chloride 0.9% 100 ml @ 25 mls/hr IVPB Q8H [facility] Rx#: [id number] propofoL 1,000 mg In 85.324 98.39 Empty Bag 1 bag @ 15 MCG/ KG/MIN 6.94 mls/hr IV . [id number] [facility] Rx#:[id number] Tube Feeding 120 30 Other 60 Output: Urine 1005 1045 60 Other: Voiding Method Indwelling Catheter Indwelling Catheter # Bowel Movements 2 2 ABP, PAP, CO, CI - Last Documented Arterial Blood Pressure 134/87 - Exam No acute distress, sedated, initially seen in the emergency department, and then in the intensive care unit, currently on propofol. The patient remains unresponsive to any verbal or painful stimulation. HEENT examination is grossly unremarkable. Patient has an orally placed endotracheal tube. Neck supple. Full range of motion. No adenopathy thyromegaly or neck vein distention. Cardiovascular examination reveals regular rhythm rate. S1-S2 normal. No S3 or S4. No discernible murmur noted. Heart sounds are distant. Lungs reveal mild scattered rhonchi. No wheezes or crackles. Breath sounds are diminished on the right side. Abdomen soft without bowel sounds. Extremities are intact. No cyanosis clubbing or edema. The patient does move his left lower extremity from time to time. Skin is without rash or lesion. Neurologic examination cannot be adequately assessed at this time. Pupils are pinpoint, sluggishly reactive to light. The patient has flaccid paralysis in the right upper extremity. Minimal movement and has left side as mentioned. Babinski is negative on the left and equivocal on the right. Motor and sensory functions cannot be accurately determined. No facial asymmetry. Weak cough and a gag. - Labs CBC & Chem 7: 07/04/24 05:00 07/04/24 05:00 Labs: Abnormal Lab Results - Last 24 Hours (Table) 07/03/24 07/03/24 07/03/24 Range/Units 12:59 17:55 17:57 WBC (3.8-10.6) k/uL RBC (4.30-5.90) m/uL Hgb (13.0-17.5) gm/dL Hct (39.0-53.0) % MCV (80.0-100.0) fL MCH (25.0-35.0) pg MCHC (31.0-37.0) g/dL RDW (11.5-15.5) % Plt Count (150-450) k/uL Neutrophils # (1.3-7.7) k/uL Lymphocytes # (1.0-4.8) k/uL Monocytes # (0-1.0) k/uL APTT (22.0-30.0) sec ABG pCO2 (35-45) mmHg ABG pO2 (83-108) mmHg ABG HCO3 (21-25) mmol/L ABG O2 Saturation (94-97) % Hemoglobin (13.0-17.5) gm/dL Potassium 3.3 L (3.5-5.1) mmol/L Chloride (98-107) mmol/L Carbon Dioxide (22-30) mmol/L BUN (9-20) mg/dL Creatinine (0.66-1.25) mg/dL Glucose (74-99) mg/dL POC Glucose (mg/dL) 121 H 127 H (70-110) mg/dL Calcium (8.4-10.2) mg/dL Total Protein (6.3-8.2) g/dL Albumin (3.5-5.0) g/dL 07/03/24 07/04/24 07/04/24 Range/Units 23:08 04:55 05:00 WBC 26.8 H (3.8-10.6) k/uL RBC 3.66 L (4.30-5.90) m/uL Hgb 8.0 L (13.0-17.5) gm/dL Hct 27.4 L (39.0-53.0) % MCV 74.9 L (80.0-100.0) fL MCH 21.8 L (25.0-35.0) pg MCHC 29.2 L (31.0-37.0) g/dL RDW 16.9 H (11.5-15.5) % Plt Count 586 H (150-450) k/uL Neutrophils # 24.6 H (1.3-7.7) k/uL Lymphocytes # 0.8 L (1.0-4.8) k/uL Monocytes # 1.1 H (0-1.0) k/uL APTT (22.0-30.0) sec ABG pCO2 (35-45) mmHg ABG pO2 (83-108) mmHg ABG HCO3 (21-25) mmol/L ABG O2 Saturation (94-97) % Hemoglobin (13.0-17.5) gm/dL Potassium (3.5-5.1) mmol/L Chloride (98-107) mmol/L Carbon Dioxide (22-30) mmol/L BUN (9-20) mg/dL Creatinine (0.66-1.25) mg/dL Glucose (74-99) mg/dL POC Glucose (mg/dL) 135 H 120 H (70-110) mg/dL Calcium (8.4-10.2) mg/dL Total Protein (6.3-8.2) g/dL Albumin (3.5-5.0) g/dL 07/04/24 07/04/24 07/04/24 Range/Units 05:00 05:00 05:21 WBC (3.8-10.6) k/uL RBC (4.30-5.90) m/uL Hgb (13.0-17.5) gm/dL Hct (39.0-53.0) % MCV (80.0-100.0) fL MCH (25.0-35.0) pg MCHC (31.0-37.0) g/dL RDW (11.5-15.5) % Plt Count (150-450) k/uL Neutrophils # (1.3-7.7) k/uL Lymphocytes # (1.0-4.8) k/uL Monocytes # (0-1.0) k/uL APTT 40.8 H (22.0-30.0) sec ABG pCO2 30 L (35-45) mmHg ABG pO2 109 H (83-108) mmHg ABG HCO3 20 L (21-25) mmol/L ABG O2 Saturation 98.9 H (94-97) % Hemoglobin 8.1 L (13.0-17.5) gm/dL Potassium (3.5-5.1) mmol/L Chloride 115 H (98-107) mmol/L Carbon Dioxide 19 L (22-30) mmol/L BUN 5 L (9-20) mg/dL Creatinine 0.44 L (0.66-1.25) mg/dL Glucose 119 H (74-99) mg/dL POC Glucose (mg/dL) (70-110) mg/dL Calcium 7.7 L (8.4-10.2) mg/dL Total Protein 5.4 L (6.3-8.2) g/dL Albumin 1.9 L (3.5-5.0) g/dL Microbiology - Last 24 Hours (Table) 07/02/24 09:32 Gram Stain - Preliminary Bronchoalviolar Lavage - Right 07/02/24 06:05 Blood Culture - Preliminary Blood 07/01/24 07:59 Gram Stain - Final Sputum Sputum Culture - Final 07/02/24 05:59 Urine Culture - Final Urine,Catheterized Assessment and Plan Plan: Acute respiratory failure, requiring intubation/mechanical ventilation, secondary to poor neurologic status secondary to CVA, and inability to protect airway, 06/30/2024 and the patient remains intubated on the mechanical ventilator. The patient has complete opacified right lung which is a combination of chronic pleural effusion and trapped lung with a right lung/hilar mass causing obstruction of the right upper lobe and the right lower lobe bronchi. Chest x-ray findings are essentially unchanged with complete opacification of the right lung. The tube is in a good location. He did encounter airleak and the ET tube was replaced today. Right parietal/temporal acute/subacute ischemic CVA, with evolving bilateral ischemic CVAs. Most recent CAT scan of the brain on 07/02/2024 shows evolving multifocal acute/subacute CVA and the patient was found to have multiple scattered hypoattenuating areas throughout the brain with miranda/white matter loss. There is also evolution of the stroke compared to the earlier CAT scan on 07/01/2024 including bilateral frontal lobes and left basal ganglia, left caudate nucleus, right temporal lobe and left occipital parietal region and right caudate nucleus among other areas. CT of the brain showed no significant intracranial vascular abnormality. There is bilateral carotid artery disease involving the proximal internal carotid artery creating 75% stenosis on the right and 90% stenosis on the left. The patient currently is on IV heparin stage IV lung cancer, the patient is known to have pulm adenocarcinoma the patient has been receiving Tabrecta on outpatient basis and his treatment was essentially to [facility]. He is known to have chronic volume loss and a chronic right-sided pleural effusion. The mass in his right upper lobe/hilum was causing right upper lobe bronchus and the right lower lobe bronchus and the patient has developed chronic right-sided pleural effusion/atelectasis which has remained unchanged on serial x-rays. Chronic persistent right-sided pleural effusion Hypertension Hyperlipidemia Diabetes mellitus type 2 Polysubstance abuse including cocaine Acute leukocytosis Anemia of chronic disease Acid reflux Plan Replace the ET-tube. The patient was extubated and was reintubated and airleak recovered Chest x-ray and the blood gases were noted, no changes Continue IV heparin Wean off the propofol and assess the patient's neurological functions Continue IV Zosyn as a broad-spectrum antibiotic coverage Wean off pressors and discontinue gradually Cut down the IV fluids to 50 cc an hour Patient is a positive fluid balance. No need for diuretics at this point in time Continue enteral feeding for nutritional support Continue IV Protonix Continue aspirin Vascular surgery consultation Neurology consultation Will continue to follow make further recommendations based on her progress. Based on above-mentioned comorbidities, the prognosis extremely poor. This evaluation was done more than 30 minutes Time with Patient: Greater than 30
--- NOTE | 2024-07-04 12:46 | P.PCN ---
Date of Procedure: 07/04/24 Preoperative Diagnosis: Acute hypoxic respiratory failure, evidence of cuff leak Postoperative Diagnosis: Same Procedure(s) Performed: Intubation and replacement of the orotracheal tube Surgeon: Ciro Faye Estimated Blood Loss (ml): 0 Pathology: other Condition: critical Disposition: ICU Operative Findings: Indication: Respiratory compromise. Evidence of air leak around the orotracheal tube attributed to cuff leak A time-out was completed verifying correct patient, procedure, site, positioni ng, and implant(s) or special equipment if applicable. The patient was positioned appropriately and a #8 endotracheal tube was placed under direct laryngoscopy. The tube was anchored at 22 cm at the teeth. Correct placement was confirmed by presence of bilateral breath sounds without air sounds in the abdomen on auscultation. An end-tidal CO2 monitor was also used to confirm tracheal placement of the ET tube. A chest x-ray was ordered to assess for pneumothorax and verify endotracheal tube placement. The patient tolerated the procedure well and there were no complications.
--- NOTE | 2024-07-04 15:14 | P.PN ---
Subjective Progress Note Date: 07/04/24 Principal diagnosis: Carotid stenosis Patient is seen and examined today as a follow-up. Vascular surgery was initially consulted for carotid stenosis. CTA was independently reviewed by Dr. Mace with presence of fibrofatty thrombus in the bilateral carotid arteries and discussed with the primary care physician that she would recommend transfer to tertiary center with interventional neurology for thrombectomy. Patient remains in the ICU, he has been sedated and intubated. Apparently patient has been moving left upper and lower extremity however had not been following commands. He is now on a sedation holiday. His latest brain CT done on 07/02/2024 reports evolving multifocal acute/subacute CVA, correlate for embolic phenomenon. MRI recommended no hemorrhagic conversion. Patient is on a heparin drip currently as well as 81 mg aspirin and a atorvastatin 80 mg nightly, he remains on pressors. Objective - Vital Signs Vital signs: Vital Signs Temp 98.4 F 07/04/24 08:00 Pulse 101 H 07/04/24 09:15 Resp 21 07/04/24 09:15 BP 135/94 07/03/24 20:15 Pulse Ox 97 07/04/24 09:15 FiO2 30 07/04/24 09:15 Intake & Output 07/03/24 07/04/24 07/04/24 18:59 06:59 18:59 Intake Total 2182.751 2613.841 747.950 Output Total 1005 1045 865 Balance 8758.308 8454.841 -117.050 Weight 74.7 kg Intake: IV 1476 1476 529 Magnesium Sulfate-D5w Pmx 200 1 gm In Dextrose/Water 1 100ml.bag @ 100 mls/hr IVPB Q1H [facility] Rx#: [id number] Potassium Chloride 20 meq 100 In Water For Injection 1 100ml.bag @ 50 mls/hr IVPB Q2H [facility] Rx#: [id number] Sodium Chloride 0.9% 1, 1440 1440 120 000 ml @ 120 mls/hr IV . Q8H20M [facility] Rx#:[id number] Sodium Chloride 0.9% 1, 100 000 ml @ 50 mls/hr IV . Q20H [facility] Rx#:[id number] pressure bag 36 36 9 Intake, IV Titration 249.151 1960.841 218.950 Amount Heparin Sod,Pork in 0.45% 250 NaCl 25,000 unit In 0.45 % NaCl 1 250ml.bag @ 12 UNITS/KG/HR 7.932 mls/hr IV .Q24H [facility] Rx#: [id number] Norepinephrine 8 mg In 341.427 759.451 63.012 Sodium Chloride 0.9% 250 ml @ 0.03 MCG/KG/MIN 3. 994 mls/hr IV .Q24H [facility] Rx#:[id number] Piperacillin-Tazobactam 3 100 .375 gm In Sodium Chloride 0.9% 100 ml @ 25 mls/hr IVPB Q8H [facility] Rx#: [id number] Vasopressin 60 unit In 108.324 Sodium Chloride 0.9% 150 ml @ 0.03 UNITS/MIN 4.59 mls/hr IV .Q24H [facility] Rx#: [id number] propofoL 1,000 mg In 85.324 98.39 47.614 Empty Bag 1 bag @ 15 MCG/ KG/MIN 6.94 mls/hr IV . [id number] [facility] Rx#:[id number] Tube Feeding 120 30 Other 60 Output: Gastric Drainage 400 Urine 1005 1045 465 Other: Voiding Method Indwelling Catheter Indwelling Catheter # Bowel Movements 2 2 0 ABP, PAP, CO, CI - Last Documented Arterial Blood Pressure 129/82 - Exam General appearance: The patient is intubated, currently not following commands. HET: Head is normocephalic and atraumatic. Neck: Supple. Heart: Regular. Lungs: Equal expansion. Abdomen: Soft, nontender, nondistended. Extremities: Normal skin color and turgor. Neurological: Intubated, just started sedation holiday. Currently not following commands. - Labs CBC & Chem 7: 07/04/24 05:00 07/04/24 05:00 Labs: Abnormal Lab Results - Last 24 Hours (Table) 07/03/24 07/03/24 07/03/24 Range/Units 12:59 17:55 17:57 WBC (3.8-10.6) k/uL RBC (4.30-5.90) m/uL Hgb (13.0-17.5) gm/dL Hct (39.0-53.0) % MCV (80.0-100.0) fL MCH (25.0-35.0) pg MCHC (31.0-37.0) g/dL RDW (11.5-15.5) % Plt Count (150-450) k/uL Neutrophils # (1.3-7.7) k/uL Lymphocytes # (1.0-4.8) k/uL Monocytes # (0-1.0) k/uL APTT (22.0-30.0) sec ABG pCO2 (35-45) mmHg ABG pO2 (83-108) mmHg ABG HCO3 (21-25) mmol/L ABG O2 Saturation (94-97) % Hemoglobin (13.0-17.5) gm/dL Potassium 3.3 L (3.5-5.1) mmol/L Chloride (98-107) mmol/L Carbon Dioxide (22-30) mmol/L BUN (9-20) mg/dL Creatinine (0.66-1.25) mg/dL Glucose (74-99) mg/dL POC Glucose (mg/dL) 121 H 127 H (70-110) mg/dL Calcium (8.4-10.2) mg/dL Total Protein (6.3-8.2) g/dL Albumin (3.5-5.0) g/dL 07/03/24 07/04/24 07/04/24 Range/Units 23:08 04:55 05:00 WBC 26.8 H (3.8-10.6) k/uL RBC 3.66 L (4.30-5.90) m/uL Hgb 8.0 L (13.0-17.5) gm/dL Hct 27.4 L (39.0-53.0) % MCV 74.9 L (80.0-100.0) fL MCH 21.8 L (25.0-35.0) pg MCHC 29.2 L (31.0-37.0) g/dL RDW 16.9 H (11.5-15.5) % Plt Count 586 H (150-450) k/uL Neutrophils # 24.6 H (1.3-7.7) k/uL Lymphocytes # 0.8 L (1.0-4.8) k/uL Monocytes # 1.1 H (0-1.0) k/uL APTT (22.0-30.0) sec ABG pCO2 (35-45) mmHg ABG pO2 (83-108) mmHg ABG HCO3 (21-25) mmol/L ABG O2 Saturation (94-97) % Hemoglobin (13.0-17.5) gm/dL Potassium (3.5-5.1) mmol/L Chloride (98-107) mmol/L Carbon Dioxide (22-30) mmol/L BUN (9-20) mg/dL Creatinine (0.66-1.25) mg/dL Glucose (74-99) mg/dL POC Glucose (mg/dL) 135 H 120 H (70-110) mg/dL Calcium (8.4-10.2) mg/dL Total Protein (6.3-8.2) g/dL Albumin (3.5-5.0) g/dL 07/04/24 07/04/24 07/04/24 Range/Units 05:00 05:00 05:21 WBC (3.8-10.6) k/uL RBC (4.30-5.90) m/uL Hgb (13.0-17.5) gm/dL Hct (39.0-53.0) % MCV (80.0-100.0) fL MCH (25.0-35.0) pg MCHC (31.0-37.0) g/dL RDW (11.5-15.5) % Plt Count (150-450) k/uL Neutrophils # (1.3-7.7) k/uL Lymphocytes # (1.0-4.8) k/uL Monocytes # (0-1.0) k/uL APTT 40.8 H (22.0-30.0) sec ABG pCO2 30 L (35-45) mmHg ABG pO2 109 H (83-108) mmHg ABG HCO3 20 L (21-25) mmol/L ABG O2 Saturation 98.9 H (94-97) % Hemoglobin 8.1 L (13.0-17.5) gm/dL Potassium (3.5-5.1) mmol/L Chloride 115 H (98-107) mmol/L Carbon Dioxide 19 L (22-30) mmol/L BUN 5 L (9-20) mg/dL Creatinine 0.44 L (0.66-1.25) mg/dL Glucose 119 H (74-99) mg/dL POC Glucose (mg/dL) (70-110) mg/dL Calcium 7.7 L (8.4-10.2) mg/dL Total Protein 5.4 L (6.3-8.2) g/dL Albumin 1.9 L (3.5-5.0) g/dL Microbiology - Last 24 Hours (Table) 07/02/24 09:32 Gram Stain - Preliminary Bronchoalviolar Lavage - Right 07/02/24 06:05 Blood Culture - Preliminary Blood 07/01/24 07:59 Gram Stain - Final Sputum Sputum Culture - Final 07/02/24 05:59 Urine Culture - Final Urine,Catheterized Assessment and Plan Assessment: 1. Bilateral internal carotid artery stenosis 2. Altered mental status changes 3. Reported slurred speech and left-sided weakness 4. Diabetes mellitus 5. Hypertension 6. Hyperlipidemia, 7. History of right upper extremity DVT on Lovenox 8. Stage IV lung cancer on immunotherapy Plan: Recommendation from vascular surgery on 07/01/2024 was to consider transfer to tertiary center for thrombectomy per interventional neurology versus care goal discussion. Primary medical team had discussed with patient's who had declined transfer on 07/01/2024. Continue anticoagulation as long as patient can tolerate. Patient's is now here at bedside and requesting possible transfer to tertiary center if neurology feels patient could benefit from thrombectomy per interventional neurologist. Patient has since been noted to have evolving multifocal acute/subacute CVA, last noted on 07/02/2024. Patient's case to be discussed with neurology. Continue with recommendations from neurology. Thank you for this consultation, we will continue to follow. The impression and plan of care has been dictated as directed. Dr. Mace I performed a history and examination of this patient, discussed the same with the dictator. I agree with the dictator's note ,documented as a scribe. Any additional findings or plans will be noted.
--- NOTE | 2024-07-04 17:03 | P.PN ---
Subjective Progress Note Date: 07/04/24 Hospital Course: 68-year-old man with stage IV lung cancer on immunotherapy, diabetes mellitus, HTN, HLD, recent upper extremity DVT on blood thinners at home, GERD, who presented to the ED with left-sided weakness and altered mental status. Patient was intubated in the ER for airway protection, CTA head and neck showed fibrofatty thrombus within bilateral proximal internal carotid arteries creating 75 stenosis on the right and 90% stenosis in the left, patient was not a candidate for TNK per interventional neurology who was contacted by ED. Vascular surgery was consulted, recommended continue anticoagulation and Plavix as well as transfer to tertiary care facility for thrombectomy per interventional neurology. That was discussed with patient's family by hospitalist team, patient's declined transfer at that time and wanted to see how patient progresses in our facility. Repeat CT of the brain revealed multiple bilateral embolic infarcts, cardiology was consulted for KAREN and recommended against the study due to no history of arrhythmia and known bilateral carotid artery stenosis and thrombus. Patient's ETT was exchanged on 07/04. Currently, decision regarding transfer pending neurology recommendations regarding neuro prognostication, multiple discussions including goals of care were made with patient's , general prognosis is poor. Pertinent Imaging: [] Subjective: [] Pertinent positives and negatives as discussed above, a complete review of systems was performed and all other systems are negative. Vitals Signs Reviewed. General: Intubated sedated Derm: Warm, dry Head: Atraumatic, normocephalic, symmetric Eyes: EOMI, no lid lag, anicteric sclera, bilateral periorbital edema Mouth: No lip lesion, mucus membranes moist Cardiovascular: S1S2 reg, no murmur Lungs: Breath sounds only noted in left side, mechanically ventilated Abdominal: Soft, nontender to palpation, no guarding, no appreciable organomegaly Ext: No gross muscle atrophy, right upper extremity edema, no contractures Neuro: Sedated, spontaneously moving left upper extremity and left lower extremity, minimal withdrawal to pain, pupils are pinpoint Psych: Unable to assess Data Reviewed Today: Pertinent Labs: Leukocytosis improved from 30.7-26.8, hemoglobin low and stable at 8.0, thrombocytosis present no significant change, ABG this a.m. showed normal pH, normal sodium and potassium, creatinine 0.44, blood glucose is well- controlled Imaging: Wrist x-ray reviewed personally, no significant changes, persistent opacification of the right sided chest Assessment and Plan: [Active:] Acute multifocal embolic ischemic strokes Acute encephalopathy due to above Bilateral carotid artery thrombosis stenosis -Patient was on pressor this a.m., weaned off later during the day, monitor BP, keep systolic blood pressure above 140 to maintain cerebral perfusion, continue IV fluids -Continue baby aspirin, atorvastatin, heparin drip, monitor PTT -No KAREN planned by cardiology -Vascular surgery and neurology following, patient's disposition to be determined pending neuro prognostication -Wean sedation as possible, ICU following -discussed at length patient's condition with his , communicated overall poor prognosis Acute hypoxic respiratory failure requiring intubation likely due to acute stroke -Stage IV lung cancer on immunotherapy -ETT tube exchanged 07/04, ICU following -Patient had bronchoscopy, persistent right lung opacification likely secondary to known lung cancer Severe leukocytosis, improving Thrombocytosis Microcytic anemia -Continue empiric IV Zosyn, monitor CBC daily -BAL cultures growing preliminary Serratia -Follow-up blood cultures, negative today -Urine cultures negative DM -Continue SSI, Accu-Cheks every 6 hours DVT ppx: On heparin drip Code status: Full code Anticipated discharge place: To be determined Anticipated discharge time: Be determined Objective - Vital Signs Vital signs: Vital Signs Temp 98.4 F 07/04/24 08:00 Pulse 110 H 07/04/24 16:45 Resp 22 07/04/24 16:45 BP 139/92 07/04/24 13:00 Pulse Ox 100 07/04/24 16:45 FiO2 30 07/04/24 16:45 Intake & Output 07/03/24 07/04/24 07/04/24 18:59 06:59 18:59 Intake Total 2182.751 2613.841 1262.695 Output Total 1005 1045 1175 Balance 7798.248 2981.841 87.695 Weight 74.7 kg 74.7 kg Intake: IV 1476 1476 900 Magnesium Sulfate-D5w Pmx 200 1 gm In Dextrose/Water 1 100ml.bag @ 100 mls/hr IVPB Q1H [facility] Rx#: [id number] Potassium Chloride 20 meq 100 In Water For Injection 1 100ml.bag @ 50 mls/hr IVPB Q2H [facility] Rx#: [id number] Sodium Chloride 0.9% 1, 1440 1440 120 000 ml @ 120 mls/hr IV . Q8H20M [facility] Rx#:[id number] Sodium Chloride 0.9% 1, 450 000 ml @ 50 mls/hr IV . Q20H [facility] Rx#:[id number] pressure bag 36 36 30 Intake, IV Titration 186.596 5977.841 362.695 Amount Heparin Sod,Pork in 0.45% 250 NaCl 25,000 unit In 0.45 % NaCl 1 250ml.bag @ 12 UNITS/KG/HR 7.932 mls/hr IV .Q24H [facility] Rx#: [id number] Norepinephrine 8 mg In 341.427 759.451 166.408 Sodium Chloride 0.9% 250 ml @ 0.03 MCG/KG/MIN 3. 994 mls/hr IV .Q24H [facility] Rx#:[id number] Piperacillin-Tazobactam 3 100 .375 gm In Sodium Chloride 0.9% 100 ml @ 25 mls/hr IVPB Q8H [facility] Rx#: [id number] Vasopressin 60 unit In 116.943 Sodium Chloride 0.9% 150 ml @ 0.03 UNITS/MIN 4.59 mls/hr IV .Q24H [facility] Rx#: [id number] propofoL 1,000 mg In 85.324 98.39 79.344 Empty Bag 1 bag @ 15 MCG/ KG/MIN 6.94 mls/hr IV . [id number] [facility] Rx#:[id number] Tube Feeding 120 30 Other 60 Output: Gastric Drainage 400 Urine 1005 1045 775 Other: Voiding Method Indwelling Catheter Indwelling Catheter Indwelling Catheter # Bowel Movements 2 2 1 ABP, PAP, CO, CI - Last Documented Arterial Blood Pressure 101/60 - Labs CBC & Chem 7: 07/04/24 05:00 07/04/24 05:00 Labs: Abnormal Lab Results - Last 24 Hours (Table) 07/03/24 07/03/24 07/03/24 Range/Units 17:55 17:57 23:08 WBC (3.8-10.6) k/uL RBC (4.30-5.90) m/uL Hgb (13.0-17.5) gm/dL Hct (39.0-53.0) % MCV (80.0-100.0) fL MCH (25.0-35.0) pg MCHC (31.0-37.0) g/dL RDW (11.5-15.5) % Plt Count (150-450) k/uL Neutrophils # (1.3-7.7) k/uL Lymphocytes # (1.0-4.8) k/uL Monocytes # (0-1.0) k/uL APTT (22.0-30.0) sec ABG pCO2 (35-45) mmHg ABG pO2 (83-108) mmHg ABG HCO3 (21-25) mmol/L ABG O2 Saturation (94-97) % Hemoglobin (13.0-17.5) gm/dL Potassium 3.3 L (3.5-5.1) mmol/L Chloride (98-107) mmol/L Carbon Dioxide (22-30) mmol/L BUN (9-20) mg/dL Creatinine (0.66-1.25) mg/dL Glucose (74-99) mg/dL POC Glucose (mg/dL) 127 H 135 H (70-110) mg/dL Calcium (8.4-10.2) mg/dL Total Protein (6.3-8.2) g/dL Albumin (3.5-5.0) g/dL 07/04/24 07/04/24 07/04/24 Range/Units 04:55 05:00 05:00 WBC 26.8 H (3.8-10.6) k/uL RBC 3.66 L (4.30-5.90) m/uL Hgb 8.0 L (13.0-17.5) gm/dL Hct 27.4 L (39.0-53.0) % MCV 74.9 L (80.0-100.0) fL MCH 21.8 L (25.0-35.0) pg MCHC 29.2 L (31.0-37.0) g/dL RDW 16.9 H (11.5-15.5) % Plt Count 586 H (150-450) k/uL Neutrophils # 24.6 H (1.3-7.7) k/uL Lymphocytes # 0.8 L (1.0-4.8) k/uL Monocytes # 1.1 H (0-1.0) k/uL APTT (22.0-30.0) sec ABG pCO2 (35-45) mmHg ABG pO2 (83-108) mmHg ABG HCO3 (21-25) mmol/L ABG O2 Saturation (94-97) % Hemoglobin (13.0-17.5) gm/dL Potassium (3.5-5.1) mmol/L Chloride 115 H (98-107) mmol/L Carbon Dioxide 19 L (22-30) mmol/L BUN 5 L (9-20) mg/dL Creatinine 0.44 L (0.66-1.25) mg/dL Glucose 119 H (74-99) mg/dL POC Glucose (mg/dL) 120 H (70-110) mg/dL Calcium 7.7 L (8.4-10.2) mg/dL Total Protein 5.4 L (6.3-8.2) g/dL Albumin 1.9 L (3.5-5.0) g/dL 07/04/24 07/04/24 07/04/24 Range/Units 05:00 05:21 11:41 WBC (3.8-10.6) k/uL RBC (4.30-5.90) m/uL Hgb (13.0-17.5) gm/dL Hct (39.0-53.0) % MCV (80.0-100.0) fL MCH (25.0-35.0) pg MCHC (31.0-37.0) g/dL RDW (11.5-15.5) % Plt Count (150-450) k/uL Neutrophils # (1.3-7.7) k/uL Lymphocytes # (1.0-4.8) k/uL Monocytes # (0-1.0) k/uL APTT 40.8 H (22.0-30.0) sec ABG pCO2 30 L (35-45) mmHg ABG pO2 109 H (83-108) mmHg ABG HCO3 20 L (21-25) mmol/L ABG O2 Saturation 98.9 H (94-97) % Hemoglobin 8.1 L (13.0-17.5) gm/dL Potassium (3.5-5.1) mmol/L Chloride (98-107) mmol/L Carbon Dioxide (22-30) mmol/L BUN (9-20) mg/dL Creatinine (0.66-1.25) mg/dL Glucose (74-99) mg/dL POC Glucose (mg/dL) 117 H (70-110) mg/dL Calcium (8.4-10.2) mg/dL Total Protein (6.3-8.2) g/dL Albumin (3.5-5.0) g/dL Microbiology - Last 24 Hours (Table) 07/02/24 09:32 Gram Stain - Preliminary Bronchoalviolar Lavage - Right Bronchial Washings Culture - Preliminary Serratia marcescens 07/02/24 06:05 Blood Culture - Preliminary Blood
[2024-07-04 17:31] LABS: Glucose,Whole Blood 82 mg/dL (70-110)
[2024-07-04 17:50] LABS: Glucose,Whole Blood 77 mg/dL (70-110)
[2024-07-04 17:56] LABS: Glucose,Whole Blood 74 mg/dL (70-110)
[2024-07-04 18:05] LABS: Magnesium 1.9 mg/dL (1.6-2.3); Potassium 3.5 mmol/L (3.5-5.1)
[2024-07-04] MEDS: POTASSIUM CHLORIDE 20 MEQ in WATER FOR INJECTION 1 100ML.BAG IVPB SCH (21:42)
[2024-07-04] MEDS: MAGNESIUM SULFATE-D5W PMX 1 GM in DEXTROSE/WATER 1 100ML.BAG IVPB ONE (21:43)
[2024-07-05 01:03] LABS: Glucose,Whole Blood 89 mg/dL (70-110)
[2024-07-05 05:29] LABS: ABG Base Excess -3.1 mmol/L; ABG HCO3 20 mmol/L (21-25); ABG Oxygen Saturation 99.2 % (94-97); ABG PCO2 28 mmHg (35-45); ABG PH 7.46 (7.35-7.45); ABG PO2 119 mmHg (83-108); ABG TCO2 21 mmol/L (19-24); Allen Test Performed? Yes
[2024-07-05 05:48] LABS: Glucose,Whole Blood 86 mg/dL (70-110)
[2024-07-05] MEDS: PIPERACILLIN-TAZOBACTAM 3.375 GM in SODIUM CHLORIDE 0.9% 100 ML IVPB SCH (06:19)
[2024-07-05 06:20] LABS: Anisocytosis Slight; Basophils % (A) 0 %; Eosinophils # (A) 0.1 k/uL (0-0.7); Eosinophils % (A) 1 %; HCT 27.9 % (39.0-53.0); HGB 8.3 gm/dL (13.0-17.5); Hypochromasia Marked; Lymphocytes # (A) 0.6 k/uL (1.0-4.8); Lymphocytes % (A) 4 %; MCH 22.1 pg (25.0-35.0); MCHC 29.7 g/dL (31.0-37.0); MCV 74.2 fL (80.0-100.0); Mean Platelet Volume 6.9; Microcytosis Moderate; Monocytes # (A) 0.8 k/uL (0-1.0); Monocytes % (A) 6 %; Neutrophils # (A) 12.4 k/uL (1.3-7.7); Neutrophils % (A) 88 %; Platelet Count 533 k/uL (150-450); Poikilocytosis Slight; RBC 3.75 m/uL (4.30-5.90); RDW 16.9 % (11.5-15.5)
[2024-07-05 06:42] LABS: ALT 11 U/L (4-49); AST 28 U/L (17-59); African American GFR (CKD) >90 (>60 ml/min/1.73 sqM); Albumin 1.9 g/dL (3.5-5.0); Alkaline Phosphatase 119 U/L (38-126); Anion Gap 4 mmol/L; Blood Urea Nitrogen 6 mg/dL (9-20); Carbon Dioxide 18 mmol/L (22-30); Chloride 116 mmol/L (98-107); Glucose 81 mg/dL (74-99); Magnesium 1.9 mg/dL (1.6-2.3); Non-African American GFR(CKD) >90 (>60 ml/min/1.73 sqM); Potassium 3.7 mmol/L (3.5-5.1); Sodium 138 mmol/L (137-145); Total Bilirubin 0.5 mg/dL (0.2-1.3); Total Protein 5.4 g/dL (6.3-8.2)
[2024-07-05] MEDS ORDERED: Magnesium Replacement Protocol 1 EACH MISC MISCELLANE PRN (06:54)
[2024-07-05] MEDS ORDERED: Potassium Replacement Protocol 1 EACH MISC MISCELLANE PRN (06:54)
[2024-07-05] MEDS: HEPARIN SODIUM 1,000 UN/ML (10ML VL) IV PRN (07:03)
--- NOTE | 2024-07-05 07:54 | XR ---
EXAMINATION TYPE: XR chest 1V portable DATE OF EXAM: 07/05/2024 5:21 AM COMPARISON: 07/04/2024 CLINICAL INDICATION: Male, 68 years old with history of mechanical ventilation, FINDINGS: Indwelling tubes and catheters are unchanged. No change in diffuse opacity right hemithorax. Left lung is clear. Stable appearance of the cardio-mediastinal structures at this time. IMPRESSION: 1. Stable portable chest. Clinical correlation and follow up until resolution is recommended. [facility], , 07/05/2024 7:52 AM
[2024-07-05] MEDS: MAGNESIUM SULFATE-D5W PMX 1 GM in DEXTROSE/WATER 1 100ML.BAG IVPB ONE (08:37)
[2024-07-05] MEDS: POTASSIUM BICARBONATE/CIT AC 20 MEQ TABLET.EFF NG-TUBE SCH (08:38)
--- NOTE | 2024-07-05 09:05 | P.PN ---
Subjective Progress Note Date: 09/05/23 Principal diagnosis: Multifocal cerebral infarcts with likely aspiration pneumonia and severe carotid stenosis bilaterally. Mr. Armendariz is a 68-year-old -[place] male with history of advanced lung cancer, deep venous thrombosis, diabetes, gastroesophageal reflux disease, hy pertension, hyperlipidemia. He was admitted to [facility] on June 30 with altered mental status as well as slurred speech and left-sided weakness. He may have had a gaze to the left initially however EEG performed July 01 revealed only slowing without epileptiform discharges. He was intubated and placed initially on Keppra but this was discontinued after his negative EEG. On July 01 he was noted to be overbreathing the ventilator and a CT head from July 02 revealed multifocal embolic appearing infarcts in the right parietal, left occipital, bilateral frontal areas as well as left left basal ganglia and caudate. His CT angiogram in June 30 reveals a fibrofatty t hrombus in the bilateral internal carotid artery with 90% stenosis of the left internal carotid artery and 75% stenosis on the right. Vascular surgery has been consulted and is considering carotid endarterectomy based on the patient's clinical course. He is currently anticoagulated on heparin drip as well as taking aspirin 81 mg daily. On exam July 04, 2024, the patient is sedated on propofol drip. However when this is weaned the patient is minimally arousable though he will not follow commands. He exhibits minimal withdrawal with his left upper and lower extremity and does not move the right upper and lower extremity. I do not detect a Babinski sign on the left foot and the right foot is equivocal. Nursing notes that he was moving spontaneously with his left arm and leg earlier this morning and he does exhibit some spontaneous movement but pinched on the left lower extremity. Pupils are pinpoint and unreactive and he does not blink to threat. I had a conversation with vascular surgeon Dr. Cecelia Mace in the evening of July 04, and though they had initially wished for the patient to be transferred to [place] for vascular intervention, it was decided between us that any procedure should wait on clinical improvement as he is at risk of reperfusion hemorrhage as well as embolus from acute procedures in light of his multifocal infarcts. Dr. Mace agreed with this, and may consider vascular intervention here at [facility] if the patient does clinically improve. On assessment July 05, the patient remains sedated on propofol, though he was noted to be potentially be following commands with his left arm per nursing last night. On my exam, when the propofol was weaned, the patient had minimally improved withdrawal with the left arm, and moderately improved withdrawal from the left leg. Right arm and leg were flaccid, and the patient was not following commands or looking at the examiner. Pupils were pinpoint and weakly reactive, I could not get him to engage with extraocular muscle movements. He is due to have a carotid ultrasound performed today to assess the degree of stenosis. This is considered to be likely a thrombus stenosis in the arteries bilaterally, so the risk of surgery would be increased or a procedure to be performed immediately. Assessment: Mr. Armendariz is a 68-year-old -Sy[place] male with history of advanced lung cancer as well as DVT for which he was taking Lovenox. He presents with evidence of multifocal embolic appearing cerebral infarcts which is developed likely since July [address] appeared relatively normal at that time. He is current on currently on heparin drip for anticoagulation but exhibits minimal responsiveness. Plan: 1. Patient will remain on heparin drip for the time being. I will order a repeat noncontrast CT of the brain for tomorrow morning to assess for any evidence of hemorrhage due to his heparin drip. 2. I will follow-up on the results of his carotid ultrasound as this may explain some feasibility for surgery. 2. Vascular surgery has been consulted and is considering possible open thrombectomy if the patient shows substantial clinical improvement over the next few days to up to 2 weeks. 3. Transesophageal echocardiogram has been discontinued by cardiology and light of the fact the patient has fibrofatty thrombus in bilateral carotid arteries which likely accounts for his embolic infarcts. 4. Patient should receive an MRI of the brain without contrast once extubated and neurology will continue to follow him on an intermittent basis and order this when needed. 5. Neurology will continue to follow the patient in house and make further recommendations as needed. Objective - Vital Signs Vital signs: Vital Signs Temp 97.9 F 07/05/24 04:00 Pulse 118 H 07/05/24 07:40 Resp 24 07/05/24 07:00 BP 139/92 07/04/24 13:00 Pulse Ox 100 07/05/24 07:00 FiO2 30 07/05/24 07:24 Intake & Output 12/16/24 12/17/24 12/17/24 18:59 06:59 18:59 Intake Total 0885.743 0035.179 108 Output Total 1240 495 Balance 255.702 3145.179 108 Weight 74.7 kg 76.4 kg Intake: IV 1006 1061 78 Magnesium Sulfate-D5w Pmx 100 1 gm In Dextrose/Water 1 100ml.bag @ 100 mls/hr IVPB ONCE ONE Rx#: [id number] Magnesium Sulfate-D5w Pmx 200 1 gm In Dextrose/Water 1 100ml.bag @ 100 mls/hr IVPB Q1H [facility] Rx#: [id number] Piperacillin-Tazobactam 3 125 25 .375 gm In Sodium Chloride 0.9% 100 ml @ 25 mls/hr IVPB Q8H [facility] Rx#: [id number] Potassium Chloride 20 meq 200 In Water For Injection 1 100ml.bag @ 50 mls/hr IVPB ONCE ONE Rx#: [id number] Potassium Chloride 20 meq 100 In Water For Injection 1 100ml.bag @ 50 mls/hr IVPB Q2H [facility] Rx#: [id number] Sodium Chloride 0.9% 1, 120 000 ml @ 120 mls/hr IV . Q8H20M COUNTS INCLUDE 234 BEDS AT THE [facility] Rx#:[id number] Sodium Chloride 0.9% 1, 550 600 50 000 ml @ 50 mls/hr IV . Q20H COUNTS INCLUDE 234 BEDS AT THE [facility] Rx#:[id number] pressure bag 36 36 3 Intake, IV Titration 362.695 360.179 Amount Heparin Sod,Pork in 0.45% 260.179 NaCl 25,000 unit In 0.45 % NaCl 1 250ml.bag @ 12 UNITS/KG/HR 7.932 mls/hr IV .Q24H [facility] Rx#: [id number] Norepinephrine 8 mg In 166.408 Sodium Chloride 0.9% 250 ml @ 0.03 MCG/KG/MIN 3. 994 mls/hr IV .Q24H [facility] Rx#:[id number] Vasopressin 60 unit In 116.943 Sodium Chloride 0.9% 150 ml @ 0.03 UNITS/MIN 4.59 mls/hr IV .Q24H [facility] Rx#: [id number] propofoL 1,000 mg In 79.344 100 Empty Bag 1 bag @ 15 MCG/ KG/MIN 6.94 mls/hr IV . [id number] [facility] Rx#:[id number] Tube Feeding 250 30 Other 90 Output: Gastric Drainage 400 Urine 840 495 Other: Voiding Method Indwelling Catheter Indwelling Catheter # Bowel Movements 1 ABP, PAP, CO, CI - Last Documented Arterial Blood Pressure 99/63 - Labs CBC & Chem 7: 07/05/24 05:45 07/05/24 05:45 Labs: Abnormal Lab Results - Last 24 Hours (Table) 07/04/24 07/05/24 07/05/24 Range/Units 11:41 05:23 05:45 WBC (3.8-10.6) k/uL RBC (4.30-5.90) m/uL Hgb (13.0-17.5) gm/dL Hct (39.0-53.0) % MCV (80.0-100.0) fL MCH (25.0-35.0) pg MCHC (31.0-37.0) g/dL RDW (11.5-15.5) % Plt Count (150-450) k/uL Neutrophils # (1.3-7.7) k/uL Lymphocytes # (1.0-4.8) k/uL APTT 33.8 H (22.0-30.0) sec ABG pH 7.46 H (7.35-7.45) ABG pCO2 28 L (35-45) mmHg ABG pO2 119 H (83-108) mmHg ABG HCO3 20 L (21-25) mmol/L ABG O2 Saturation 99.2 H (94-97) % Hemoglobin 8.3 L (13.0-17.5) gm/dL Chloride (98-107) mmol/L Carbon Dioxide (22-30) mmol/L BUN (9-20) mg/dL Creatinine (0.66-1.25) mg/dL POC Glucose (mg/dL) 117 H (70-110) mg/dL Calcium (8.4-10.2) mg/dL Total Protein (6.3-8.2) g/dL Albumin (3.5-5.0) g/dL 07/05/24 07/05/24 Range/Units 05:45 05:45 WBC 14.0 H (3.8-10.6) k/uL RBC 3.75 L (4.30-5.90) m/uL Hgb 8.3 L (13.0-17.5) gm/dL Hct 27.9 L (39.0-53.0) % MCV 74.2 L (80.0-100.0) fL MCH 22.1 L (25.0-35.0) pg MCHC 29.7 L (31.0-37.0) g/dL RDW 16.9 H (11.5-15.5) % Plt Count 533 H (150-450) k/uL Neutrophils # 12.4 H (1.3-7.7) k/uL Lymphocytes # 0.6 L (1.0-4.8) k/uL APTT (22.0-30.0) sec ABG pH (7.35-7.45) ABG pCO2 (35-45) mmHg ABG pO2 (83-108) mmHg ABG HCO3 (21-25) mmol/L ABG O2 Saturation (94-97) % Hemoglobin (13.0-17.5) gm/dL Chloride 116 H (98-107) mmol/L Carbon Dioxide 18 L (22-30) mmol/L BUN 6 L (9-20) mg/dL Creatinine 0.41 L (0.66-1.25) mg/dL POC Glucose (mg/dL) (70-110) mg/dL Calcium 8.0 L (8.4-10.2) mg/dL Total Protein 5.4 L (6.3-8.2) g/dL Albumin 1.9 L (3.5-5.0) g/dL Microbiology - Last 24 Hours (Table) 07/02/24 09:32 Acid Fast Bacilli Smear - Preliminary Bronchoalviolar Lavage - Right 07/02/24 09:32 Gram Stain - Preliminary Bronchoalviolar Lavage - Right Bronchial Washings Culture - Preliminary Serratia marcescens 07/02/24 06:05 Blood Culture - Preliminary Blood
--- NOTE | 2024-07-05 09:18 | P.PN ---
Subjective Progress Note Date: 07/05/24 Principal diagnosis: Carotid stenosis Patient seen and examined today in the ICU. He remains sedated and intubated on mechanical ventilation. Patient was able to follow some simple commands yesterday and was able to move the left side of his body. Right side flaccid. Patient remains on IV heparin drip. Objective - Vital Signs Vital signs: Vital Signs Temp 97.9 F 07/05/24 04:00 Pulse 118 H 07/05/24 07:40 Resp 24 07/05/24 07:00 BP 139/92 07/04/24 13:00 Pulse Ox 100 07/05/24 07:00 FiO2 30 07/05/24 07:24 Intake & Output 07/04/24 07/05/24 07/05/24 18:59 06:59 18:59 Intake Total 2360.646 2599.179 108 Output Total 1240 495 Balance 702.671 0677.179 108 Weight 74.7 kg 76.4 kg Intake: IV 1006 1061 78 Magnesium Sulfate-D5w Pmx 100 1 gm In Dextrose/Water 1 100ml.bag @ 100 mls/hr IVPB ONCE ONE Rx#: [id number] Magnesium Sulfate-D5w Pmx 200 1 gm In Dextrose/Water 1 100ml.bag @ 100 mls/hr IVPB Q1H [facility] Rx#: [id number] Piperacillin-Tazobactam 3 125 25 .375 gm In Sodium Chloride 0.9% 100 ml @ 25 mls/hr IVPB Q8H [facility] Rx#: [id number] Potassium Chloride 20 meq 200 In Water For Injection 1 100ml.bag @ 50 mls/hr IVPB ONCE ONE Rx#: [id number] Potassium Chloride 20 meq 100 In Water For Injection 1 100ml.bag @ 50 mls/hr IVPB Q2H [facility] Rx#: [id number] Sodium Chloride 0.9% 1, 120 000 ml @ 120 mls/hr IV . Q8H20M [facility] Rx#:[id number] Sodium Chloride 0.9% 1, 550 600 50 000 ml @ 50 mls/hr IV . Q20H [facility] Rx#:[id number] pressure bag 36 36 3 Intake, IV Titration 362.695 360.179 Amount Heparin Sod,Pork in 0.45% 260.179 NaCl 25,000 unit In 0.45 % NaCl 1 250ml.bag @ 12 UNITS/KG/HR 7.932 mls/hr IV .Q24H [facility] Rx#: [id number] Norepinephrine 8 mg In 166.408 Sodium Chloride 0.9% 250 ml @ 0.03 MCG/KG/MIN 3. 994 mls/hr IV .Q24H [facility] Rx#:[id number] Vasopressin 60 unit In 116.943 Sodium Chloride 0.9% 150 ml @ 0.03 UNITS/MIN 4.59 mls/hr IV .Q24H [facility] Rx#: [id number] propofoL 1,000 mg In 79.344 100 Empty Bag 1 bag @ 15 MCG/ KG/MIN 6.94 mls/hr IV . [id number] [facility] Rx#:[id number] Tube Feeding 250 30 Other 90 Output: Gastric Drainage 400 Urine 840 495 Other: Voiding Method Indwelling Catheter Indwelling Catheter # Bowel Movements 1 ABP, PAP, CO, CI - Last Documented Arterial Blood Pressure 99/63 - Exam General appearance: The patient is intubated, currently not following commands. HET: Head is normocephalic and atraumatic. Neck: Supple. Heart: Regular. Lungs: Equal expansion. Abdomen: Soft, nontender, nondistended. Extremities: Normal skin color and turgor. Neurological: Intubated, minimal movement of left extremities. Right extremities flaccid. Currently not following commands. - Labs CBC & Chem 7: 07/05/24 05:45 07/05/24 05:45 Labs: Abnormal Lab Results - Last 24 Hours (Table) 07/04/24 07/05/24 07/05/24 Range/Units 11:41 05:23 05:45 WBC (3.8-10.6) k/uL RBC (4.30-5.90) m/uL Hgb (13.0-17.5) gm/dL Hct (39.0-53.0) % MCV (80.0-100.0) fL MCH (25.0-35.0) pg MCHC (31.0-37.0) g/dL RDW (11.5-15.5) % Plt Count (150-450) k/uL Neutrophils # (1.3-7.7) k/uL Lymphocytes # (1.0-4.8) k/uL APTT 33.8 H (22.0-30.0) sec ABG pH 7.46 H (7.35-7.45) ABG pCO2 28 L (35-45) mmHg ABG pO2 119 H (83-108) mmHg ABG HCO3 20 L (21-25) mmol/L ABG O2 Saturation 99.2 H (94-97) % Hemoglobin 8.3 L (13.0-17.5) gm/dL Chloride (98-107) mmol/L Carbon Dioxide (22-30) mmol/L BUN (9-20) mg/dL Creatinine (0.66-1.25) mg/dL POC Glucose (mg/dL) 117 H (70-110) mg/dL Calcium (8.4-10.2) mg/dL Total Protein (6.3-8.2) g/dL Albumin (3.5-5.0) g/dL 07/05/24 07/05/24 Range/Units 05:45 05:45 WBC 14.0 H (3.8-10.6) k/uL RBC 3.75 L (4.30-5.90) m/uL Hgb 8.3 L (13.0-17.5) gm/dL Hct 27.9 L (39.0-53.0) % MCV 74.2 L (80.0-100.0) fL MCH 22.1 L (25.0-35.0) pg MCHC 29.7 L (31.0-37.0) g/dL RDW 16.9 H (11.5-15.5) % Plt Count 533 H (150-450) k/uL Neutrophils # 12.4 H (1.3-7.7) k/uL Lymphocytes # 0.6 L (1.0-4.8) k/uL APTT (22.0-30.0) sec ABG pH (7.35-7.45) ABG pCO2 (35-45) mmHg ABG pO2 (83-108) mmHg ABG HCO3 (21-25) mmol/L ABG O2 Saturation (94-97) % Hemoglobin (13.0-17.5) gm/dL Chloride 116 H (98-107) mmol/L Carbon Dioxide 18 L (22-30) mmol/L BUN 6 L (9-20) mg/dL Creatinine 0.41 L (0.66-1.25) mg/dL POC Glucose (mg/dL) (70-110) mg/dL Calcium 8.0 L (8.4-10.2) mg/dL Total Protein 5.4 L (6.3-8.2) g/dL Albumin 1.9 L (3.5-5.0) g/dL Microbiology - Last 24 Hours (Table) 07/02/24 09:32 Acid Fast Bacilli Smear - Preliminary Bronchoalviolar Lavage - Right 07/02/24 09:32 Gram Stain - Preliminary Bronchoalviolar Lavage - Right Bronchial Washings Culture - Preliminary Serratia marcescens 07/02/24 06:05 Blood Culture - Preliminary Blood Assessment and Plan Assessment: 1. Bilateral internal carotid artery stenosis with fibrofatty thrombus 2. Altered mental status changes 3. Reported slurred speech 4. Right sided weakness 5. Diabetes mellitus 5. Hypertension 7. Hyperlipidemia, 8. History of right upper extremity DVT on Lovenox 9. Stage IV lung cancer on immunotherapy Plan: Recommendation from vascular surgery on 07/01/2024 was to consider transfer to tertiary center for thrombectomy per interventional neurology versus care goal discussion. Primary medical team had discussed with patient's who had declined transfer on 07/01/2024. Continue anticoagulation as long as patient can tolerate. Repeat carotid duplex to reevaluate thrombus within the carotid arteries. Once patient become comes more stabilized can consider possible endarterectomy within the next 2 weeks. Continue with recommendations from neurology. Thank you for this consultation, we will continue to follow. The impression and plan of care has been dictated as directed. Dr. Page I performed a history and examination of this patient, discussed the same with the dictator. I agree with the dictator's note ,documented as a scribe. Any additional findings or plans will be noted.
--- NOTE | 2024-07-05 09:41 | US ---
EXAMINATION TYPE: US carotid duplex BILAT DATE OF EXAM: 07/05/2024 COMPARISON: CTA CLINICAL INDICATION: Male, 68 years old with history of Evaluate carotid thrombus seen on CTA; Abnorm al CTA, stroke Additional History: .... TECHNIQUE: Grayscale, color Doppler and spectral Doppler evaluation of the bilateral carotid systems and vertebral arteries. Indirect Doppler criteria was utilized. FINDINGS: EXAM MEASUREMENTS: RIGHT: Peak Systolic Velocity (PSV) cm/sec ----- Right CCA: 74.1 ----- Right ICA: 95.5 ----- Right ECA: 89.6 ICA/CCA ratio: 1.3 RIGHT: End Diastole cm/sec ----- Right CCA: 22.1 ----- Right ICA: 37.0 ----- Right ECA: 16.2 LEFT: Peak Systolic Velocity (PSV) cm/sec ----- Left CCA: 64.3 ----- Left ICA: 80.9 ----- Left ECA: 54.0 ICA/CCA ratio: 1.3 LEFT: End Diastole cm/sec ----- Left CCA: 18.9 ----- Left ICA: 26.4 ----- Left ECA: 7.2 VERTEBRALS (direction of flow): Right Vertebral: Antegrade Left Vertebral: Unable to visualize Rhythm: Tachy ARBORICULTURIST NOTES: Bilateral thrombus visualized within bilateral ICA's- appears acute in nature a nd moving during real-time exam, is not causing elevated velocities, appears larger in left ICA Incidental finding right IJV DVT occluding entire visualized portions of IJV Color Doppler imaging shows patency with blood flow throughout the carotid artery. Spectral waveforms are within normal limits. IMPRESSION: 1. Bilateral thrombus visualized within bilateral ICA's- appears acute in nature and moving during r eal-time exam, is not causing elevated velocities, appears larger in left ICA 2. Occlusive right internal jugular vein DVT. Criteria for Assigning % of Stenosis / Diameter reduction (Estimation based on the indirect measurements of the internal carotid artery velocities (ICA PSV). 1. Normal (no stenosis)=ICA PSV < 125 cm/s: ratio < 2.0: ICA EDV<40 cm/s. 2. Less than 50% stenosis=ICA PSV < 125 cm/s: ratio < 2.0: ICA EDV<40 cm/s. 3. 50 to 69% stenosis=ICA PSV of 125 to 230 cm/s: ration 2.0 ? 4.0: ICA EDV 40-100 cm/s. 4. Greater than 70% stenosis to near occlusion= ICA PSV > 230 cm/s: ratio > 4.0: ICA EDV > 100 cm/s. 5. Near occlusion= ICA PSV velocities may be low or undetectable: variable ratio and ICA EDV. 6. Total occlusion=unable to detect flow. [facility], , 07/05/2024 9:38 AM
--- NOTE | 2024-07-05 12:33 | P.PN ---
Subjective Progress Note Date: 07/05/24 Hospital Course: 68-year-old man with stage IV lung cancer on immunotherapy, diabetes mellitus, HTN, HLD, recent upper extremity DVT on blood thinners at home, GERD, who presented to the ED with left-sided weakness and altered mental status. Patient was intubated in the ER for airway protection, CTA head and neck showed fibrofatty thrombus within bilateral proximal internal carotid arteries creating 75 stenosis on the right and 90% stenosis in the left, patient was not a candidate for TNK per interventional neurology who was contacted by ED. Vascular surgery was consulted, recommended continue anticoagulation and Plavix as well as transfer to tertiary care facility for thrombectomy per interventional neurology. That was discussed with patient's family by hospitalist team, patient's declined transfer at that time and wanted to see how patient progresses in our facility. Repeat CT of the brain revealed multiple bilateral embolic infarcts, cardiology was consulted for KAREN and recommended against the study due to no history of arrhythmia and known bilateral carotid artery stenosis and thrombus. Patient's ETT was exchanged on 07/04. 07/04 neurology and vascular surgery had discussion regarding further steps, it was decided that including possible endarterectomy within the next 2 weeks should the patient become more stabilized, taking into account high risk of reperfusion hemorrhage, acute embolization from intervention. 07/05 patient was seen along with ICU team, he was off propofol for 40 minutes, was able to wiggle his toes, weakly squeeze fingers all on the left side, right side is totally flaccid, patient does have right-sided gaze preference, no gag reflex, no cough with suctioning Vitals Signs Reviewed. General: Intubated , not sedated Derm: Warm, dry Head: Atraumatic, normocephalic, symmetric Eyes: Pinpoint pupils, right-sided gaze preference, upward gaze preference, no lid lag, anicteric sclera, bilateral periorbital edema Mouth: No lip lesion, mucus membranes moist Cardiovascular: S1S2 reg, no murmur Lungs: Breath sounds only noted in left side, mechanically ventilated Abdominal: Soft, nontender to palpation, no guarding, no appreciable organomegaly Ext: No gross muscle atrophy, right upper extremity edema, no contractures Neuro, spontaneously moving left upper extremity and left lower extremity, follows simple commands, wiggles toes, very weakly squeezes fingers, no gag reflex, no cough with suctioning Psych: Unable to assess Data Reviewed Today: Pertinent Labs: Leukocytosis continues to improve down to 14.0, hemoglobin re mained stable above 8, ABG from this a.m. showed respiratory alkalosis, CMP with normal sodium and potassium, creatinine, ALT and AST. Imaging: Personally reviewed repeat chest x-ray, no significant changes, there is a persistent diffuse opacification of the right hemothorax, unchanged. Carotid duplex showed bilateral thrombus within bilateral ICAs, acute in nature, moving during real-time exam, occlusive right internal jugular vein DVT Assessment and Plan: occlusive right internal jugular vein DVT -Already on heparin drip Acute multifocal embolic ischemic strokes Acute encephalopathy due to above Bilateral carotid artery thrombosis stenosis -Patient was on pressor this a.m., weaned off later during the day, monitor BP, keep systolic blood pressure above 140 to maintain cerebral perfusion, continue IV fluids -Continue baby aspirin, atorvastatin, heparin drip, monitor PTT -No KAREN planned by cardiology -Vascular surgery and neurology following, patient's disposition to be determined pending neuro prognostication -Wean sedation as possible, ICU following -discussed at length patient's condition with his , communicated overall poor prognosis -Plan for repeat CT head 07/06 per neurology -Off propofol, off pressors since 07/04 around noon, CPAP trial -Patient's updated on 07/05, she was notified regarding new imaging results including jugular vein occlusion, absence of gag reflex, meaning of that finding, patient's remains very hopeful for recovery, it was previously explained to her that there is a high likelihood that the patient will not have meaningful neurological recovery, might not be able to come off the vent, able to speak, feed himself or eat by mouth. Patient did not previously express his wishes regarding trach or PEG, at that time patient's would like to wait and see, get results of the repeat testing and input from vascular surgery, neurology Acute hypoxic respiratory failure requiring intubation likely due to acute stroke -Stage IV lung cancer on immunotherapy -ETT tube exchanged 07/04, ICU following -Patient had bronchoscopy, persistent right lung opacification likely secondary to known lung cancer Severe leukocytosis, improving Thrombocytosis Microcytic anemia -Continue empiric IV Zosyn, monitor CBC daily -BAL cultures growing preliminary Serratia -Follow-up blood cultures, negative today -Urine cultures negative DM -Continue SSI, Accu-Cheks every 6 hours DVT ppx: On heparin drip Code status: Full code Anticipated discharge place: To be determined Anticipated discharge time: Be determined Objective - Vital Signs Vital signs: Vital Signs Temp 97.9 F 07/05/24 08:00 Pulse 115 H 07/05/24 11:32 Resp 38 H 07/05/24 11:00 BP 139/92 07/04/24 13:00 Pulse Ox 99 07/05/24 11:00 FiO2 30 07/05/24 12:00 Intake & Output 07/04/24 07/05/24 07/05/24 18:59 06:59 18:59 Intake Total 1931.322 7377.179 679.349 Output Total 1240 495 140 Balance 114.024 3308.179 539.349 Weight 74.7 kg 76.4 kg Intake: IV 1006 1061 390 Magnesium Sulfate-D5w Pmx 100 100 1 gm In Dextrose/Water 1 100ml.bag @ 100 mls/hr IVPB ONCE ONE Rx#: [id number] Magnesium Sulfate-D5w Pmx 200 1 gm In Dextrose/Water 1 100ml.bag @ 100 mls/hr IVPB Q1H [facility] Rx#: [id number] Piperacillin-Tazobactam 3 125 25 .375 gm In Sodium Chloride 0.9% 100 ml @ 25 mls/hr IVPB Q8H [facility] Rx#: [id number] Potassium Chloride 20 meq 200 In Water For Injection 1 100ml.bag @ 50 mls/hr IVPB ONCE ONE Rx#: [id number] Potassium Chloride 20 meq 100 In Water For Injection 1 100ml.bag @ 50 mls/hr IVPB Q2H [facility] Rx#: [id number] Sodium Chloride 0.9% 1, 120 000 ml @ 120 mls/hr IV . Q8H20M [facility] Rx#:[id number] Sodium Chloride 0.9% 1, 550 600 250 000 ml @ 50 mls/hr IV . Q20H [facility] Rx#:[id number] pressure bag 36 36 15 Intake, IV Titration 362.695 360.179 49.349 Amount Heparin Sod,Pork in 0.45% 260.179 NaCl 25,000 unit In 0.45 % NaCl 1 250ml.bag @ 12 UNITS/KG/HR 7.932 mls/hr IV .Q24H [facility] Rx#: [id number] Norepinephrine 8 mg In 166.408 Sodium Chloride 0.9% 250 ml @ 0.03 MCG/KG/MIN 3. 994 mls/hr IV .Q24H [facility] Rx#:[id number] Vasopressin 60 unit In 116.943 Sodium Chloride 0.9% 150 ml @ 0.03 UNITS/MIN 4.59 mls/hr IV .Q24H [facility] Rx#: [id number] propofoL 1,000 mg In 79.344 100 49.349 Empty Bag 1 bag @ 15 MCG/ KG/MIN 6.94 mls/hr IV . [id number] [facility] Rx#:[id number] Tube Feeding 250 150 Other 90 90 Output: Gastric Drainage 400 Urine 840 495 140 Other: Voiding Method Indwelling Catheter Indwelling Catheter Indwelling Catheter # Bowel Movements 1 ABP, PAP, CO, CI - Last Documented Arterial Blood Pressure 113/64 - Labs CBC & Chem 7: 07/05/24 05:45 07/05/24 05:45 Labs: Abnormal Lab Results - Last 24 Hours (Table) 07/05/24 07/05/24 07/05/24 Range/Units 05:23 05:45 05:45 WBC 14.0 H (3.8-10.6) k/uL RBC 3.75 L (4.30-5.90) m/uL Hgb 8.3 L (13.0-17.5) gm/dL Hct 27.9 L (39.0-53.0) % MCV 74.2 L (80.0-100.0) fL MCH 22.1 L (25.0-35.0) pg MCHC 29.7 L (31.0-37.0) g/dL RDW 16.9 H (11.5-15.5) % Plt Count 533 H (150-450) k/uL Neutrophils # 12.4 H (1.3-7.7) k/uL Lymphocytes # 0.6 L (1.0-4.8) k/uL APTT 33.8 H (22.0-30.0) sec ABG pH 7.46 H (7.35-7.45) ABG pCO2 28 L (35-45) mmHg ABG pO2 119 H (83-108) mmHg ABG HCO3 20 L (21-25) mmol/L ABG O2 Saturation 99.2 H (94-97) % Hemoglobin 8.3 L (13.0-17.5) gm/dL Chloride (98-107) mmol/L Carbon Dioxide (22-30) mmol/L BUN (9-20) mg/dL Creatinine (0.66-1.25) mg/dL Calcium (8.4-10.2) mg/dL Total Protein (6.3-8.2) g/dL Albumin (3.5-5.0) g/dL 07/05/24 Range/Units 05:45 WBC (3.8-10.6) k/uL RBC (4.30-5.90) m/uL Hgb (13.0-17.5) gm/dL Hct (39.0-53.0) % MCV (80.0-100.0) fL MCH (25.0-35.0) pg MCHC (31.0-37.0) g/dL RDW (11.5-15.5) % Plt Count (150-450) k/uL Neutrophils # (1.3-7.7) k/uL Lymphocytes # (1.0-4.8) k/uL APTT (22.0-30.0) sec ABG pH (7.35-7.45) ABG pCO2 (35-45) mmHg ABG pO2 (83-108) mmHg ABG HCO3 (21-25) mmol/L ABG O2 Saturation (94-97) % Hemoglobin (13.0-17.5) gm/dL Chloride 116 H (98-107) mmol/L Carbon Dioxide 18 L (22-30) mmol/L BUN 6 L (9-20) mg/dL Creatinine 0.41 L (0.66-1.25) mg/dL Calcium 8.0 L (8.4-10.2) mg/dL Total Protein 5.4 L (6.3-8.2) g/dL Albumin 1.9 L (3.5-5.0) g/dL Microbiology - Last 24 Hours (Table) 07/02/24 09:32 Gram Stain - Final Bronchoalviolar Lavage - Right Bronchial Washings Culture - Final Serratia marcescens 07/02/24 09:32 Acid Fast Bacilli Smear - Preliminary Bronchoalviolar Lavage - Right 07/02/24 06:05 Blood Culture - Preliminary Blood
[2024-07-05 13:09] LABS: Glucose,Whole Blood 94 mg/dL (70-110)
--- NOTE | 2024-07-05 13:52 | US ---
EXAMINATION TYPE: US venous doppler duplex UE LT DATE OF EXAM: 07/05/2024 COMPARISON: NONE CLINICAL INDICATION: Male, 68 years old with history of left arm swelling; Left arm swelling, known t hrombus within bilateral carotid arteries and right IJV TECHNIQUE: Grayscale, color Doppler and spectral Doppler imaging of the upper extremity. SIDE PERFORMED: Left FINDINGS: Grayscale, color doppler, spectral doppler imaging performed of the deep veins of the upper extremiti es. Left Arm: Left IJV, proximal and mid subclavian, brachial and radial veins negative for thrombus Left distal subclavian and axillary veins positive for DVT Left basilic, ulnar, and cephalic veins not visualized due to extensive edema and pt position IMPRESSION: As above [facility], , 07/05/2024 1:49 PM
--- NOTE | 2024-07-05 16:42 | P.PN ---
Subjective Progress Note Date: 07/05/24 68-year-old black male with a history of multiple medical problems including advanced lung cancer, right pleural effusion, hyperlipidemia, hypertension, GERD, type 2 diabetes. The patient presented to the emergency department, at about 8:00 PM on June 30, with strokelike symptoms. He apparently was found to have slurred speech. He apparently became incoherent, and was apparently struggling to move the left side of his body. EMS was called and he was brought into the emergency department. The patient apparently was not able to protect his airway, and required intubation and mechanical ventilation. I did speak to Dr. Rodriguez in the emergency department. The patient is transferred to the intensive care unit, for further monitoring and management. The patient's drug screen was positive for opiates and cocaine. That may have had some effect on his neurologic issues. He is currently on volume assist-control, rate 20, tidal volume 500, FiO2 40%, PEEP of 5. Blood gases initially showed a pO2 that was greater than 420, pCO2 29, pH of 7.49. The patient is on propofol at 30 mcg/kg/min, saline at 120 cc an hour. When the patient came to the intensive care unit, we placed a right radial art line, a left subclavian triple-lumen catheter, and because his endotracheal tube was defective, we replaced the endotracheal tube with a #8 endotracheal tube. Current laboratory data includes a white count of 8.6, hemoglobin 7.8, hematocrit 26.6, platelet count of 508,000. Sodium 135, potassium 3.2, chlorides 108, CO2 21, BUN 5, and creatinine 0.58. Calcium 7.5, magnesium 1.5. Albumin 2. Urine is negative. Drug screen was positive for opiates, oxycodone, and cocaine. Viral studies were negative. Chest x-ray showed an opacified right hemithorax. Progress note dated July 02, 2024. 68-year-old black male seen today in room 255. His , flew up from [place] last night, and is at the bedside. The patient is currently on volume assist- control, rate 20, tidal volume 500, FiO2 40%, PEEP of 5. Blood gases show pO2 172, pCO2 25, pH of 7.48. The FiO2 was reduced down to 30%. The patient is on propofol at 20 mcg/kg/min, norepinephrine at 33 mcg/min, heparin via weight- based protocol, and saline at 120 cc an hour. The patient CT scan of the brain revealed a an evolving CVA, involving the right side, with left-sided weakness. The patient will have tube feeds started. In addition, chest x-ray reveals an opacified right hemithorax, and bronchoscopy will be done this morning. White count 15.2, hemoglobin 8.8, hematocrit 29.1, platelet count of 659,000. PT 1 2.8, INR 1.2. Sodium 137, potassium 3.6, chlorides 111, CO2 19, BUN 4, creatinine 0.47. Glucose was 164. Calcium 7.6. Magnesium 1.6. Chest x-ray reveals a right opacified hemithorax. CT scan of the reveals acute/subacute ischemia in the right parietotemporal area, and right frontal lobe. Progress note dated July 03, 2024. 68-year-old black male seen again in room 255. The patient has a history of lung cancer, advanced. The patient presented with neurologic findings, and was found to have a right sided CVA, and more recently, a another CT scan of the brain revealed additional damage to the left side of his brain. The patient remains on the ventilator. He is on volume assist-control, rate 20, tidal volume 500, 30% FiO2, PEEP of 5. Blood gases show pO2 117, pCO2 of 28, pH of 7.44. The patient is on norepinephrine at 33 mcg/min, propofol at 20 mcg/kg/min, 0.9 to 120 cc an hour, and heparin via weight-based protocol. The patient is getting vital high-protein at 10 cc an hour. Repeat brain CT showing extension, was done yesterday, July 02. He now has bilateral ischemic strokes. The patient only moves his left lower extremity. Because of his higher doses of norepinephrine, will add vasopressin. His procalcitonin level was within normal range. We will check a cortisol level for adrenal insufficiency. Chest x-ray shows an opacified right chest. Bronchoscopy yesterday revealed significant secretions and disease, in the right lower lobe. White count 30.7, hemoglobin 8.3, hematocrit 28.2, platelet count 611,000. PTT is 42.7. Sodium 137, potassium 3.5, chlorides 116, CO2 17, BUN 4, creatinine 0.40. Glucose 131. Cultures thus far negative. Procalcitonin level is normal. Chest x-ray is unchanged. 07/04/2024, the patient is being seen for a follow-up. This morning, the patient remains sedated on propofol which is running at 20 mcg/kg/min. Remains intubated on the mechanical ventilator. He is on assist-control mode of mechanical ventilation at rate of 20, tidal volume of 500, FiO2 of 30% with a PEEP of 5. The peak airway pressure is 19. Chest x-ray from today shows complete opacification of the right lung. ET tube is in a good location. Left lung is relatively clear and there is a small left-sided pleural effusion. The blood gases from today showed a pH of 7.43 with a pCO2 of 30 and pO2 of 109. The patient has limited respiratory secretions. There is considerable amount of air leak around the ET tube and a cuff is probably blown. The bronchoscopy was done and the cultures were essentially negative. The patient is covered empirically with IV Zosyn. He remains hypotensive and he remains on norepinephrine which is running at 0.25 mcg/kg/min. IV fluids are running at 125 cc an hour of normal saline. Patient remains on IV heparin. The net fluid balance over the past 24 hours and has been in the order of 2.7 L. Blood work from today shows a white cell count of 26, hemoglobin of 8 and a platelet count of 586. Sodium is at 136, potassium is at 3.6, chloride is 1 of 15 with a bicarb of 19. BUN is 5 with a creatinine of 0.44. LFTs are essentially within normal limits. Serum cortisol is 22.3. Blood culture is negative. Bronchoscopy and the bronchoalveolar lavage there is also negative. Enteral feeding is currently on hold due to high residuals. Prior to that, the patient was on vital high-protein at the rate of 10 cc an hour. 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 He has minimal withdrawal in his left upper extremity and lower extremities and does not move his right side. Negative for Babinski sign on the left and the right foot is equivocal. Pupils are pinpoint and unreactive and the patient remains on propofol. Neurology is on the case. Vascular surgery has been consulted regarding the bilateral carotid artery disease. No plans to do a KAREN at this point in time. 07/05/2024, the patient is being seen for a follow-up. Remains intubated on mechanical ventilator. Earlier this morning, the patient was taken off sedation and the brief neurologic examination that was done revealed that the patient was not able to move his right upper and right lower extremity. He was able to move his fingers and toes upon demand on the left side. Extremely weak cough. Unable to raise his head of the bed. Poor coughing and gagging reflex at this point in time. He does have a preferential gaze in his looking into the left upper corner and the pupils are equal and reactive to light around 2 to 3 mm in size. Repeat carotid Doppler was done and the patient was found to have bilateral thrombus visualized in the bilateral internal carotid arteries that appear acute in nature and moving during real-time examination. It seems to be the clots are larger in the left internal carotid artery. There is also occlus baljinder right internal jugular vein DVT. On examination, the patient was also noted to have swelling in his left upper extremity. Ultrasound Doppler of the left upper extremity revealed a positive DVT in the left distal subclavian and axillary veins. The patient remains on IV heparin. The patient remains on mechanical ventilator. This morning, he is on assist-control mode with rate of 20, tidal volume of 500, FiO2 of 30% with a PEEP of 5. The blood gas showed a pH of 7.46 with a pCO2 of 28 and pO2 119. Fluid balance is +1 L over the past 24 hours. The patient was taken off pressors as of yesterday morning. He remains on normal saline which is running at 120 cc an hour and the patient is also on vital high-protein for enteral feeding at rate of 30 cc an hour. Chest x-ray from today shows volume loss in addition to complete opacification of the right lung. Left lung remains essentially clear. Tube is in a good location. Blood work from today shows a white cell count of 14 with a hemoglobin of 8.3 and a platelet count of 533. The PTT is therapeutic. BUN is 6 with a creatinine of 0.4 and sodium is at 138 and a bicarb deficit 18. LFTs are essentially within normal limits. The bronchoscopy endobronchial lavage that was done earlier yielded Serratia marcescens and the patient remains on IV Zosyn. Objective - Vital Signs Vital signs: Vital Signs Temp 97.9 F 07/05/24 08:00 Pulse 112 H 07/05/24 09:00 Resp 22 07/05/24 09:00 BP 139/92 07/04/24 13:00 Pulse Ox 100 07/05/24 09:00 FiO2 30 07/05/24 07:24 Intake & Output 07/04/24 07/05/24 07/05/24 18:59 06:59 18:59 Intake Total 0066.668 4558.179 157.349 Output Total 1240 495 Balance 292.211 6666.179 157.349 Weight 74.7 kg 76.4 kg Intake: IV 1006 1061 78 Magnesium Sulfate-D5w Pmx 100 1 gm In Dextrose/Water 1 100ml.bag @ 100 mls/hr IVPB ONCE ONE Rx#: [id number] Magnesium Sulfate-D5w Pmx 200 1 gm In Dextrose/Water 1 100ml.bag @ 100 mls/hr IVPB Q1H [facility] Rx#: [id number] Piperacillin-Tazobactam 3 125 25 .375 gm In Sodium Chloride 0.9% 100 ml @ 25 mls/hr IVPB Q8H [facility] Rx#: [id number] Potassium Chloride 20 meq 200 In Water For Injection 1 100ml.bag @ 50 mls/hr IVPB ONCE ONE Rx#: [id number] Potassium Chloride 20 meq 100 In Water For Injection 1 100ml.bag @ 50 mls/hr IVPB Q2H [facility] Rx#: [id number] Sodium Chloride 0.9% 1, 120 000 ml @ 120 mls/hr IV . Q8H20M [facility] Rx#:[id number] Sodium Chloride 0.9% 1, 550 600 50 000 ml @ 50 mls/hr IV . Q20H [facility] Rx#:[id number] pressure bag 36 36 3 Intake, IV Titration 362.695 360.179 49.349 Amount Heparin Sod,Pork in 0.45% 260.179 NaCl 25,000 unit In 0.45 % NaCl 1 250ml.bag @ 12 UNITS/KG/HR 7.932 mls/hr IV .Q24H [facility] Rx#: [id number] Norepinephrine 8 mg In 166.408 Sodium Chloride 0.9% 250 ml @ 0.03 MCG/KG/MIN 3. 994 mls/hr IV .Q24H [facility] Rx#:[id number] Vasopressin 60 unit In 116.943 Sodium Chloride 0.9% 150 ml @ 0.03 UNITS/MIN 4.59 mls/hr IV .Q24H [facility] Rx#: [id number] propofoL 1,000 mg In 79.344 100 49.349 Empty Bag 1 bag @ 15 MCG/ KG/MIN 6.94 mls/hr IV . [id number] [facility] Rx#:[id number] Tube Feeding 250 30 Other 90 Output: Gastric Drainage 400 Urine 840 495 Other: Voiding Method Indwelling Catheter Indwelling Catheter # Bowel Movements 1 ABP, PAP, CO, CI - Last Documented Arterial Blood Pressure 103/61 - Exam No acute distress, sedated, initially seen in the emergency department, and then in the intensive care unit, currently on propofol. HEENT examination is grossly unremarkable. Patient has an orally placed endotracheal tube. Neck supple. Full range of motion. No adenopathy thyromegaly or neck vein distention. Cardiovascular examination reveals regular rhythm rate. S1-S2 normal. No S3 or S4. No discernible murmur noted. Heart sounds are distant. Lungs reveal mild scattered rhonchi. No wheezes or crackles. Breath sounds are diminished on the right side. Abdomen soft without bowel sounds. Extremities are intact. No cyanosis clubbing or edema. The patient does move his left lower extremity from time to time. Skin is without rash or lesion. Neurologic examination cannot be adequately assessed at this time. Pupils are pinpoint, sluggishly reactive to light. The patient has flaccid paralysis in the right upper extremity. Minimal movement and has left side as mentioned. Babinski is negative on the left and equivocal on the right. Motor and sensory functions cannot be accurately determined. No facial asymmetry. Weak cough and a gag. - Labs CBC & Chem 7: 07/05/24 05:45 07/05/24 05:45 Labs: Abnormal Lab Results - Last 24 Hours (Table) 07/04/24 07/05/24 07/05/24 Range/Units 11:41 05:23 05:45 WBC (3.8-10.6) k/uL RBC (4.30-5.90) m/uL Hgb (13.0-17.5) gm/dL Hct (39.0-53.0) % MCV (80.0-100.0) fL MCH (25.0-35.0) pg MCHC (31.0-37.0) g/dL RDW (11.5-15.5) % Plt Count (150-450) k/uL Neutrophils # (1.3-7.7) k/uL Lymphocytes # (1.0-4.8) k/uL APTT 33.8 H (22.0-30.0) sec ABG pH 7.46 H (7.35-7.45) ABG pCO2 28 L (35-45) mmHg ABG pO2 119 H (83-108) mmHg ABG HCO3 20 L (21-25) mmol/L ABG O2 Saturation 99.2 H (94-97) % Hemoglobin 8.3 L (13.0-17.5) gm/dL Chloride (98-107) mmol/L Carbon Dioxide (22-30) mmol/L BUN (9-20) mg/dL Creatinine (0.66-1.25) mg/dL POC Glucose (mg/dL) 117 H (70-110) mg/dL Calcium (8.4-10.2) mg/dL Total Protein (6.3-8.2) g/dL Albumin (3.5-5.0) g/dL 07/05/24 07/05/24 Range/Units 05:45 05:45 WBC 14.0 H (3.8-10.6) k/uL RBC 3.75 L (4.30-5.90) m/uL Hgb 8.3 L (13.0-17.5) gm/dL Hct 27.9 L (39.0-53.0) % MCV 74.2 L (80.0-100.0) fL MCH 22.1 L (25.0-35.0) pg MCHC 29.7 L (31.0-37.0) g/dL RDW 16.9 H (11.5-15.5) % Plt Count 533 H (150-450) k/uL Neutrophils # 12.4 H (1.3-7.7) k/uL Lymphocytes # 0.6 L (1.0-4.8) k/uL APTT (22.0-30.0) sec ABG pH (7.35-7.45) ABG pCO2 (35-45) mmHg ABG pO2 (83-108) mmHg ABG HCO3 (21-25) mmol/L ABG O2 Saturation (94-97) % Hemoglobin (13.0-17.5) gm/dL Chloride 116 H (98-107) mmol/L Carbon Dioxide 18 L (22-30) mmol/L BUN 6 L (9-20) mg/dL Creatinine 0.41 L (0.66-1.25) mg/dL POC Glucose (mg/dL) (70-110) mg/dL Calcium 8.0 L (8.4-10.2) mg/dL Total Protein 5.4 L (6.3-8.2) g/dL Albumin 1.9 L (3.5-5.0) g/dL Microbiology - Last 24 Hours (Table) 07/02/24 09:32 Acid Fast Bacilli Smear - Preliminary Bronchoalviolar Lavage - Right 07/02/24 09:32 Gram Stain - Preliminary Bronchoalviolar Lavage - Right Bronchial Washings Culture - Preliminary Serratia marcescens 07/02/24 06:05 Blood Culture - Preliminary Blood Assessment and Plan Plan: Acute respiratory failure, requiring intubation/mechanical ventilation, secondary to poor neurologic status secondary to CVA, and inability to protect airway, 06/30/2024 and the patient remains intubated on the mechanical ventilator. The patient has complete opacified right lung which is a combination of chronic pleural effusion and trapped lung with a right lung/hilar mass causing obstruction of the right upper lobe and the right lower lobe bronchi. Chest x-ray findings are essentially unchanged with complete opacification of the right lung. The tube is in a good location. He did encounter airleak and the ET tube was replaced today. The bronchoscopy endobronchial lavage involving the right lung yielded Serratia marcescens and patient is currently on IV Zosyn. Chest x-ray from today is unchanged. Right parietal/temporal acute/subacute ischemic CVA, with evolving bilateral ischemic CVAs. Most recent CAT scan of the brain on 07/02/2024 shows evolving multifocal acute/subacute CVA and the patient was found to have multiple scattered hypoattenuating areas throughout the brain with miranda/white matter loss. There is also evolution of the stroke compared to the earlier CAT scan on 07/01/2024 including bilateral frontal lobes and left basal ganglia, left caudate nucleus, right temporal lobe and left occipital parietal region and right caudate nucleus among other areas. CT of the brain showed no significant intracranial vascular abnormality. There is bilateral carotid artery disease involving the proximal internal carotid artery creating 75% stenosis on the right and 90% stenosis on the left. Repeat ultrasound with Doppler shows acute thrombus involving the anterior carotid arteries bilaterally . the patient was also found to have clot movement during real-time examination. Findings were worse on the left.and the patient currently is on IV heparin stage IV lung cancer, the patient is known to have pulm adenocarcinoma the patient has been receiving Tabrecta on outpatient basis and his treatment was essentially to [facility]. He is known to have chronic volume loss and a chronic right-sided pleural effusion. The mass in his right upper lobe/hilum was causing right upper lobe bronchus and the right lower lobe bronchus and the patient has developed chronic right-sided pleural effusion/atelectasis which has remained unchanged on serial x-rays. Chronic persistent right-sided pleural effusion, with the possibility of postobstructive pneumonia involving the right and a culture positive for Serratia marcescens, currently on IV Zosyn Right IJ DVT Left axillary and subclavian vein DVT and the patient has a subclavian triple- lumen catheter in place on the left Hypertension Hyperlipidemia Diabetes mellitus type 2 Polysubstance abuse including cocaine Acute leukocytosis Anemia of chronic disease Acid reflux Plan Patient was given a brief sedation holiday. The patient was unable to move his right side and he has very minimal motor movement/activity involving the left upper and left lower extremity. Very weak cough and a gag. Not a candidate for extubation at this point in time. He was placed on a pressure support mode of mechanical ventilation for a total of 2 hours with a PSV of 5 and a PEEP of 5 and subsequently was placed back on assist-control. Will cut on the sedation and monitor the mental status Will discuss the carotid ultrasound findings with vascular surgery. Not a candidate for any surgical intervention specially with his terminal stage IV non -small cell lung cancer and significant neurologic impairment following his bilateral CVAs. Continue IV heparin Continue IV Zosyn Patient currently off pressors IV fluids Enteral feeding for nutritional support Continue IV Protonix Continue aspirin Discontinue triple-lumen cath in the left subclavian and the patient was given a right femoral triple-lumen catheter Vascular surgery consultation is appreciated Neurology consultation is appreciated Will continue to follow make further recommendations based on her progress. Based on above-mentioned comorbidities, the prognosis extremely poor. This evaluation was done more than 30 minutes Time with Patient: Greater than 30
--- NOTE | 2024-07-05 16:43 | P.PCN ---
Date of Procedure: 07/05/24 Preoperative Diagnosis: Acute CVA, acute hypoxic respiratory failure Postoperative Diagnosis: Same Procedure(s) Performed: Triple-lumen catheter insertion, right femoral Anesthesia: local Surgeon: Ciro Faye Estimated Blood Loss (ml): 0 Pathology: none sent Condition: critical Disposition: ICU Operative Findings: Indication: Hemodynamic monitoring/Intravenous access. A time-out was completed verifying correct patient, procedure, site, positioning, and implant(s) or special equipment if applicable. The patient was placed in a dependent position appropriate for triple lumen catheter placement based on the vein to be cannulated. The patient's right femoral area was prepped and draped in sterile fashion. 1% Lidocaine was used to anesthetize the surrounding skin area. A triple lumen 9F Cordis catheter was introduced into the femoral vein using Seldinger technique. The catheter was threaded smoothly over the guide wire and appropriate blood return was obtained. Each lumen of the catheter was evacuated of air and flushed with sterile saline. The catheter was then sutured in place to the skin and a sterile dressing applied. Perfusion to the extremity distal to the point of catheter insertion was checked and found to be adequate.
[2024-07-05 18:09] LABS: Glucose,Whole Blood 94 mg/dL (70-110)
[2024-07-05 23:31] LABS: Glucose,Whole Blood 106 mg/dL (70-110)
[2024-07-06 05:01] LABS: Glucose,Whole Blood 99 mg/dL (70-110)
[2024-07-06 05:12] LABS: ABG HCO3 21 mmol/L (21-25); ABG Oxygen Saturation 99.1 % (94-97); ABG PCO2 27 mmHg (35-45); ABG PH 7.49 (7.35-7.45); ABG PO2 112 mmHg (83-108); ABG TCO2 22 mmol/L (19-24); Allen Test Performed? Yes
[2024-07-06 06:27] LABS: Anisocytosis Slight; Basophils % (A) 0 %; Eosinophils # (A) 0.2 k/uL (0-0.7); Eosinophils % (A) 2 %; HCT 26.8 % (39.0-53.0); Hypochromasia Marked; Lymphocytes # (A) 0.7 k/uL (1.0-4.8); Lymphocytes % (A) 6 %; MCHC 29.8 g/dL (31.0-37.0); MCV 73.9 fL (80.0-100.0); Mean Platelet Volume 6.9; Microcytosis Moderate; Monocytes # (A) 0.7 k/uL (0-1.0); Monocytes % (A) 7 %; Neutrophils # (A) 8.8 k/uL (1.3-7.7); Neutrophils % (A) 84 %; Platelet Count 508 k/uL (150-450); Poikilocytosis Slight; RBC 3.62 m/uL (4.30-5.90); RDW 16.8 % (11.5-15.5); WBC 10.5 k/uL (3.8-10.6)
[2024-07-06 06:33] LABS: ALT 13 U/L (4-49); AST 31 U/L (17-59); African American GFR (CKD) >90 (>60 ml/min/1.73 sqM); Albumin 1.8 g/dL (3.5-5.0); Alkaline Phosphatase 123 U/L (38-126); Anion Gap 4 mmol/L; Blood Urea Nitrogen 8 mg/dL (9-20); Calcium 7.8 mg/dL (8.4-10.2); Carbon Dioxide 19 mmol/L (22-30); Chloride 116 mmol/L (98-107); Glucose 88 mg/dL (74-99); Magnesium 1.7 mg/dL (1.6-2.3); Non-African American GFR(CKD) >90 (>60 ml/min/1.73 sqM); Potassium 3.3 mmol/L (3.5-5.1); Sodium 139 mmol/L (137-145); Total Bilirubin 0.4 mg/dL (0.2-1.3); Total Protein 5.3 g/dL (6.3-8.2)
--- NOTE | 2024-07-06 07:30 | P.PN ---
Subjective Progress Note Date: 07/06/24 Principal diagnosis: Focal cerebral infarcts with history of stage IV lung cancer, aspiration pneumonia, and multiple bilateral thrombi in the carotid arteries Mr. Armendariz is a 68-year-old -Citizen Of [place] male with history of advanced lung cancer, deep venous thrombosis, diabetes, gastroesophageal reflux disease, hypertension, hyperlipidemia. He was admitted to [facility] on June 30 with altered mental status as well as slurred speech and left-sided weakness. He may have had a gaze to the left initially however EEG performed July 01 revealed only slowing without epileptiform discharges. He was intubated and placed initially on Keppra but this was discontinued after his negative EEG. On July 01 he was noted to be overbreathing the ventilator and a CT head from July 02 revealed multifocal embolic appearing infarcts in the right parietal, left occipital, bilateral frontal areas as well as left left basal ganglia and caudate. His CT angiogram in June 30 reveals a fibrofatty thrombus in the bilateral internal carotid artery with 90% stenosis of the left internal carotid artery and 75% stenosis on the right. Vascular surgery has been consulted and is considering carotid endarterectomy based on the patient's clinical course. He is currently anticoagulated on heparin drip as well as taking aspirin 81 mg daily. On exam July 04, 2024, the patient is sedated on propofol drip. However when this is weaned the patient is minimally arousable though he will not follow commands. He exhibits minimal withdrawal with his left upper and lower extremity and does not move the right upper and lower extremity. I do not detect a Babinski sign on the left foot and the right foot is equivocal. Nursing notes that he was moving spontaneously with his left arm and leg earlier this morning and he does exhibit some spontaneous movement but pinched on the left lower extremity. Pupils are pinpoint and unreactive and he does not blink to threat. I had a conversation with vascular surgeon Dr. Cecelia Mace in the evening of July 04, and though they had initially wished for the patient to be transferred to [place] for vascular intervention, it was decided between us that any procedure should wait on clinical improvement as he is at risk of reperfusion hemorrhage as well as embolus from acute procedures in light of his multifocal infarcts. Dr. Mace agreed with this, and may consider vascular intervention here at [facility] if the patient does clinically improve. On assessment July 05, the patient remains sedated on propofol, though he was noted to be potentially be following commands with his left arm per nursing last night. On my exam, when the propofol was weaned, the patient had minimally improved withdrawal with the left arm, and moderately improved withdrawal from the left leg. Right arm and leg were flaccid, and the patient was not following commands or looking at the examiner. Pupils were pinpoint and weakly reactive, I could not get him to engage with extraocular muscle movements. He is due to have a carotid ultrasound performed today to assess the degree of stenosis. This is considered to be likely a thrombus stenosis in the arteries bilaterally, so the risk of surgery would be increased or a procedure to be performed immediately. On assessment July 06, the patient's carotid ultrasound returned with evidence of bilateral internal carotid artery thrombus on the left greater than the right. These thrombi are mobile and he also has a right internal jugular vein occlusion. On chest x-ray his right lung is opacified which is likely a combination of his history of cancer as well as aspiration pneumonia. His white count appears low and the patient is afebrile. On exam with propofol wean, the patient will not open his eyes to command, but will wiggle his toes to command. This appears to be a significant difference from 2 days ago. He was noted to be wiggling his fingers to command by staff yesterday, but I could not detect this today. He has minimal withdrawal of his left arm, and right arm and right leg are both flaccid. He may have an upgoing toe on the left but reflexes are otherwise symmetric. He has not had his routine CT scan at this time. Assessment: Mr. Armendariz is a 68-year-old -Citizen Of [place] male with history of advanced lung cancer as well as DVT for which he was taking Lovenox. He presents with evidence of multifocal embolic appearing cerebral infarcts which is developed likely since July [address] appeared relatively normal at that time. He is current on currently on heparin drip for anticoagulation but exhibits minimal responsiveness. Plan: 1. I will follow-up on his routine CT of the head being performed today for the purpose of detecting any hemorrhage from the heparin drip. 2. The patient has made some improvement with regards to his mental status as he is now following commands with his left foot. I expect with some clearance of possible aspiration pneumonia his mental status may improve further, and at that time I will speak to vascular surgery about the possibility of a open thrombectomy, which Dr. Mace stated could be performed [facility]. 3 the patient remains on a heparin drip at this time as he has mobile thrombi in his neck. We are awaiting the risk of potential surgery against the risk of reperfusion hemorrhage as well as possible continued embolus from the mobile thrombi in the neck. His situation is quite tentative at this point. 4. Neurology will continue to follow the patient and make further recommendations as needed. Objective - Vital Signs Vital signs: Vital Signs Temp 97.6 F 07/06/24 04:00 Pulse 115 H 07/06/24 07:00 Resp 26 H 07/06/24 07:00 BP 139/92 07/04/24 13:00 Pulse Ox 100 07/06/24 07:00 FiO2 30 07/06/24 04:00 Intake & Output 07/05/24 07/06/24 07/06/24 18:59 06:59 18:59 Intake Total 9754.631 5630.255 93 Output Total 400 426 30 Balance 6401.230 0104.255 63 Weight 78.9 kg Intake: IV 861 736 53 Magnesium Sulfate-D5w Pmx 100 1 gm In Dextrose/Water 1 100ml.bag @ 100 mls/hr IVPB ONCE ONE Rx#: [id number] Piperacillin-Tazobactam 3 125 100 .375 gm In Sodium Chloride 0.9% 100 ml @ 25 mls/hr IVPB Q8H [facility] Rx#: [id number] Sodium Chloride 0.9% 1, 600 600 50 000 ml @ 50 mls/hr IV . Q20H [facility] Rx#:[id number] pressure bag 36 36 3 Intake, IV Titration 78.187 373.255 Amount Heparin Sod,Pork in 0.45% 228.97 NaCl 25,000 unit In 0.45 % NaCl 1 250ml.bag @ 12 UNITS/KG/HR 7.932 mls/hr IV .Q24H [facility] Rx#: [id number] Vasopressin 60 unit In 48.603 Sodium Chloride 0.9% 150 ml @ 0.03 UNITS/MIN 4.59 mls/hr IV .Q24H [facility] Rx#: [id number] propofoL 1,000 mg In 78.187 95.682 Empty Bag 1 bag @ 15 MCG/ KG/MIN 6.94 mls/hr IV . [id number] [facility] Rx#:[id number] Tube Feeding 420 480 40 Other 150 60 Output: Urine 400 426 30 Other: Voiding Method Indwelling Catheter Indwelling Catheter ABP, PAP, CO, CI - Last Documented Arterial Blood Pressure 97/60 - Labs CBC & Chem 7: 07/06/24 06:00 07/06/24 06:00 Labs: Abnormal Lab Results - Last 24 Hours (Table) 07/05/24 07/06/24 07/06/24 Range/Units 13:00 05:05 06:00 RBC 3.62 L (4.30-5.90) m/uL Hgb 8.0 L (13.0-17.5) gm/dL Hct 26.8 L (39.0-53.0) % MCV 73.9 L (80.0-100.0) fL MCH 22.0 L (25.0-35.0) pg MCHC 29.8 L (31.0-37.0) g/dL RDW 16.8 H (11.5-15.5) % Plt Count 508 H (150-450) k/uL Neutrophils # 8.8 H (1.3-7.7) k/uL Lymphocytes # 0.7 L (1.0-4.8) k/uL APTT 47.5 H (22.0-30.0) sec ABG pH 7.49 H (7.35-7.45) ABG pCO2 27 L (35-45) mmHg ABG pO2 112 H (83-108) mmHg ABG O2 Saturation 99.1 H (94-97) % Hemoglobin 8.1 L (13.0-17.5) gm/dL Potassium (3.5-5.1) mmol/L Chloride (98-107) mmol/L Carbon Dioxide (22-30) mmol/L BUN (9-20) mg/dL Creatinine (0.66-1.25) mg/dL Calcium (8.4-10.2) mg/dL Total Protein (6.3-8.2) g/dL Albumin (3.5-5.0) g/dL 07/06/24 07/06/24 Range/Units 06:00 06:00 RBC (4.30-5.90) m/uL Hgb (13.0-17.5) gm/dL Hct (39.0-53.0) % MCV (80.0-100.0) fL MCH (25.0-35.0) pg MCHC (31.0-37.0) g/dL RDW (11.5-15.5) % Plt Count (150-450) k/uL Neutrophils # (1.3-7.7) k/uL Lymphocytes # (1.0-4.8) k/uL APTT 42.7 H (22.0-30.0) sec ABG pH (7.35-7.45) ABG pCO2 (35-45) mmHg ABG pO2 (83-108) mmHg ABG O2 Saturation (94-97) % Hemoglobin (13.0-17.5) gm/dL Potassium 3.3 L (3.5-5.1) mmol/L Chloride 116 H (98-107) mmol/L Carbon Dioxide 19 L (22-30) mmol/L BUN 8 L (9-20) mg/dL Creatinine 0.48 L (0.66-1.25) mg/dL Calcium 7.8 L (8.4-10.2) mg/dL Total Protein 5.3 L (6.3-8.2) g/dL Albumin 1.8 L (3.5-5.0) g/dL Microbiology - Last 24 Hours (Table) 07/02/24 06:05 Blood Culture - Preliminary Blood 07/02/24 09:32 Gram Stain - Final Bronchoalviolar Lavage - Right Bronchial Washings Culture - Final Serratia marcescens
--- NOTE | 2024-07-06 07:46 | XR ---
EXAMINATION TYPE: XR chest 1V portable DATE OF EXAM: 07/06/2024 3:40 AM COMPARISON: 07/05/2024 CLINICAL INDICATION: Male, 68 years old with history of mechanical ventilation, FINDINGS: Indwelling tubes and catheters are unchanged. No change in complete opacification right hemithorax and mild patchy density left medial lung base. Stable appearance of the cardio-mediastinal structures at this time. Pleural effusion unchanged. IMPRESSION: 1. Stable portable chest. Clinical correlation and follow up until resolution is recommended. [facility], , 07/06/2024 7:43 AM
[2024-07-06] MEDS: MAGNESIUM SULFATE-D5W PMX 1 GM in DEXTROSE/WATER 1 100ML.BAG IVPB ONE (09:36)
[2024-07-06] MEDS: POTASSIUM CHLORIDE 20 MEQ in WATER FOR INJECTION 1 100ML.BAG IVPB SCH (09:39)
[2024-07-06 11:55] LABS: Glucose,Whole Blood 74 mg/dL (70-110)
--- NOTE | 2024-07-06 13:30 | P.PN ---
Subjective Progress Note Date: 07/06/24 Principal diagnosis: Carotid stenosis Patient seen and examined today as a follow-up. He is currently off his propofol. Patient remains intubated, he has a lateral gaze. He was able to follow commands and blink his eye and squeeze with his left hand and wiggle his left toes. Right side remains flaccid. Carotid ultrasound shows moving thrombus bilateral internal carotid arteries left greater than right. Apparently patient he has poor gag reflex and was not a candidate for extubation yesterday. Objective - Vital Signs Vital signs: Vital Signs Temp 97.6 F 07/06/24 04:00 Pulse 115 H 07/06/24 07:40 Resp 26 H 07/06/24 07:00 BP 139/92 07/04/24 13:00 Pulse Ox 100 07/06/24 07:00 FiO2 30 07/06/24 07:29 Intake & Output 07/05/24 07/06/24 07/06/24 18:59 06:59 18:59 Intake Total 5543.570 7137.255 93 Output Total 400 426 30 Balance 2730.038 8659.255 63 Weight 78.9 kg Intake: IV 861 736 53 Magnesium Sulfate-D5w Pmx 100 1 gm In Dextrose/Water 1 100ml.bag @ 100 mls/hr IVPB ONCE ONE Rx#: [id number] Piperacillin-Tazobactam 3 125 100 .375 gm In Sodium Chloride 0.9% 100 ml @ 25 mls/hr IVPB Q8H [facility] Rx#: [id number] Sodium Chloride 0.9% 1, 600 600 50 000 ml @ 50 mls/hr IV . Q20H [facility] Rx#:[id number] pressure bag 36 36 3 Intake, IV Titration 78.187 373.255 Amount Heparin Sod,Pork in 0.45% 228.97 NaCl 25,000 unit In 0.45 % NaCl 1 250ml.bag @ 12 UNITS/KG/HR 7.932 mls/hr IV .Q24H [facility] Rx#: [id number] Vasopressin 60 unit In 48.603 Sodium Chloride 0.9% 150 ml @ 0.03 UNITS/MIN 4.59 mls/hr IV .Q24H [facility] Rx#: [id number] propofoL 1,000 mg In 78.187 95.682 Empty Bag 1 bag @ 15 MCG/ KG/MIN 6.94 mls/hr IV . [id number] [facility] Rx#:[id number] Tube Feeding 420 480 40 Other 150 60 Output: Urine 400 426 30 Other: Voiding Method Indwelling Catheter Indwelling Catheter ABP, PAP, CO, CI - Last Documented Arterial Blood Pressure 97/60 - Exam General appearance: The patient is intubated. HET: Head is normocephalic and atraumatic. Neck: Supple. Heart: Regular. Lungs: Equal expansion. Abdomen: Soft, nontender, nondistended. Extremities: Normal skin color and turgor. Neurological: Intubated, lateral gaze, able to follow commands and blink his eyes, squeeze left hand and wiggle left toes. - Labs CBC & Chem 7: 07/07/24 04:10 07/07/24 04:10 Labs: Abnormal Lab Results - Last 24 Hours (Table) 07/05/24 07/06/24 07/06/24 Range/Units 13:00 05:05 06:00 RBC 3.62 L (4.30-5.90) m/uL Hgb 8.0 L (13.0-17.5) gm/dL Hct 26.8 L (39.0-53.0) % MCV 73.9 L (80.0-100.0) fL MCH 22.0 L (25.0-35.0) pg MCHC 29.8 L (31.0-37.0) g/dL RDW 16.8 H (11.5-15.5) % Plt Count 508 H (150-450) k/uL Neutrophils # 8.8 H (1.3-7.7) k/uL Lymphocytes # 0.7 L (1.0-4.8) k/uL APTT 47.5 H (22.0-30.0) sec ABG pH 7.49 H (7.35-7.45) ABG pCO2 27 L (35-45) mmHg ABG pO2 112 H (83-108) mmHg ABG O2 Saturation 99.1 H (94-97) % Hemoglobin 8.1 L (13.0-17.5) gm/dL Potassium (3.5-5.1) mmol/L Chloride (98-107) mmol/L Carbon Dioxide (22-30) mmol/L BUN (9-20) mg/dL Creatinine (0.66-1.25) mg/dL Calcium (8.4-10.2) mg/dL Total Protein (6.3-8.2) g/dL Albumin (3.5-5.0) g/dL 07/06/24 07/06/24 Range/Units 06:00 06:00 RBC (4.30-5.90) m/uL Hgb (13.0-17.5) gm/dL Hct (39.0-53.0) % MCV (80.0-100.0) fL MCH (25.0-35.0) pg MCHC (31.0-37.0) g/dL RDW (11.5-15.5) % Plt Count (150-450) k/uL Neutrophils # (1.3-7.7) k/uL Lymphocytes # (1.0-4.8) k/uL APTT 42.7 H (22.0-30.0) sec ABG pH (7.35-7.45) ABG pCO2 (35-45) mmHg ABG pO2 (83-108) mmHg ABG O2 Saturation (94-97) % Hemoglobin (13.0-17.5) gm/dL Potassium 3.3 L (3.5-5.1) mmol/L Chloride 116 H (98-107) mmol/L Carbon Dioxide 19 L (22-30) mmol/L BUN 8 L (9-20) mg/dL Creatinine 0.48 L (0.66-1.25) mg/dL Calcium 7.8 L (8.4-10.2) mg/dL Total Protein 5.3 L (6.3-8.2) g/dL Albumin 1.8 L (3.5-5.0) g/dL Microbiology - Last 24 Hours (Table) 07/02/24 06:05 Blood Culture - Preliminary Blood 07/02/24 09:32 Gram Stain - Final Bronchoalviolar Lavage - Right Bronchial Washings Culture - Final Serratia marcescens Assessment and Plan Assessment: 1. Bilateral internal carotid artery stenosis with fibrofatty thrombus 2. Altered mental status changes, right parietal/temporal acute/subacute ischemia with a evolving bilateral ischemic CVAs 3. Occlusive right internal jugular vein DVT 4. Left distal subclavian and axillary veins positive for DVT 5. Stage IV lung cancer 6. Diabetes mellitus 7. Hypertension 8. Hyperlipidemia, 9. History of right upper extremity DVT on Lovenox Plan: Recommendation from vascular surgery on 07/01/2024 was to consider transfer to tertiary center for thrombectomy per interventional neurology versus care goal discussion. Primary medical team had discussed with patient's who had declined transfer on 07/01/2024. Carotid duplex shows mobile thrombus within carotid arteries along with right IJ vein DVT. Patient also has DVT in left upper extremity. Continue anticoagulation as long as patient can tolerate. Patient is a poor surgical candidate secondary to stage IV lung cancer as well as recent stroke. No plans surgical intervention at this time. Currently not stable for any surgical interventionAgain as well as a poor surgical candidate. Discussed with patient's and brother who were at the bedside plan moving forward including goals of care. All questions were answered and they seemingly understand no surgical intervention at this time. Thank you for this consultation, we will continue to follow. The impression and plan of care has been dictated as directed. Dr. Mace I performed a history and examination of this patient, discussed the same with the dictator. I agree with the dictator's note ,documented as a scribe. Any additional findings or plans will be noted.
--- NOTE | 2024-07-06 14:41 | P.PN ---
Subjective Progress Note Date: 07/06/24 68-year-old man with stage IV lung CA on immunotherapy, DM, HTN, HLD, recent upper extremity DVT on Eliquis, GERD, who presented to the ED with left-sided weakness and altered mental status. Patient was intubated in the ER for airway protection. CTA head and neck showed fibrofatty thrombus within bilateral proximal internal carotid arteries creating 75% stenosis on the right and 90% stenosis in the left, patient was not a candidate for TNK per interventional neurology who was contacted by ED. Vascular surgery was consulted, recommended continue anticoagulation and Plavix as well as transfer to tertiary care facility for thrombectomy per interventional neurology. That was discussed with patient's family by hospitalist team, patient's declined transfer at that time and wanted to see how patient progresses in our facility. Repeat CT of the brain revealed multiple bilateral embolic infarcts, cardiology was consulted for KAREN and recommended against the study due to no history of arrhythmia and known bilateral carotid artery stenosis and thrombus. Patient's ETT was exchanged on 07/04. 07/06 Patient was seen and examined. Off propofol following simple commands. Currently intubated. Patient with foul smelling diarrhea with rectal tube in place. Currently on heparin drip at 16 units/kg/hr. Antibiotics include Zosyn. CBC WBC 3.62, Hg 8, Hct 26.8, MCV 73.9, Plt 508. APTT 42.7. ABG pH 7.49, pCO2 27. CMP K 3.3, Cl 116, bicarb 19, BUN 8, Cr 0.48, Ca 7.8, alb 1.8. Mag 1.7. CXR done today complete opacification of the right hemithorax. Vitals Signs: BP 105/79, HR 117, RR 20, T 98F, 100% on FiO2 30. General: Intubated, not sedated Derm: Warm, dry Head: Atraumatic, normocephalic, symmetric Eyes: Pinpoint pupils, right-sided gaze preference, upward gaze preference, no lid lag, anicteric sclera, bilateral periorbital edema Mouth: No lip lesion, mucus membranes moist Cardiovascular: S1S2 reg, no murmur Lungs: Breath sounds only noted in left side, mechanically ventilated Abdominal: Soft, nontender to palpation, no guarding, no appreciable organomegaly Ext: No gross muscle atrophy, right upper extremity edema, no contractures Neuro: Spontaneously moving left upper extremity and left lower extremity, follows simple commands, wiggles toes, very weakly squeezes fingers, no gag refl ex, no cough with suctioning Psych: Unable to assess Based on my assessment of this patient, this patient meets a high complexity level of care. Acute multifocal embolic ischemic strokes: ASA 81 mg PO QD. Lipitor 80 mg PO QHS. Continue Heparin drip. Monitor APTT. No plans for immediate endarterectomy per Vascular. No plans for KAREN per Cardiology. Acute encephalopathy due to above Bilateral carotid artery thrombosis stenosis Acute hypoxic respiratory failure requiring intubation likely due to acute stroke and inability to protect airway, trapped lung due to hilar mass Severe leukocytosis with concerns of PNA: BAL cultures growing Serratia. BCx and UCx negative. Continue Zosyn 3.75 g IV TID (D2). Diarrhea: Rule out C. diff. Hypokalemia: Replace via protocol. Mag is 1.7. Thrombocytosis: Likely due to iron def. anemia. Microcytic anemia: Hg 8.0. No signs of active bleeding. Transfuse if Hg < 7. CODE STATUS: FULL CODE DVT Prophylaxis: Heparin drip. GI Prophylaxis: Protonix 40 mg IV QD. Designated medical POA if patient is not able to make medical decisions for themselves: . I have reviewed the following insurance consultant notes: Vascular. Neurology. I have reviewed the results of the following tests: CBC, CMP, Mag. I have ordered the following tests: I have discussed the care of this patient with the following independent historian: RN I have independently interpreted the following test below: CXR I have discussed the management of this patient with the following physician: This patient has a high risk of morbidity due to the following reasons: This patient meets a high level of care for the following reasons: Patient requires IV anesthetics to be maintained on the ventilator which requires intensive monitoring of hemodynamics and respiratory toxicity. Patient requires IV heparin which requires intensive monitoring for toxicity (coag panel) and bleeding. Objective - Vital Signs Vital signs: Vital Signs Temp 98 F 07/06/24 12:00 Pulse 117 H 07/06/24 13:00 Resp 20 07/06/24 13:00 BP 105/79 07/06/24 13:00 Pulse Ox 100 07/06/24 13:00 FiO2 30 07/06/24 12:00 Intake & Output 07/05/24 07/06/24 07/06/24 18:59 06:59 18:59 Intake Total 6364.184 8293.255 681 Output Total 400 426 380 Balance 9601.318 4375.255 301 Weight 78.9 kg Intake: IV 861 736 371 Magnesium Sulfate-D5w Pmx 100 1 gm In Dextrose/Water 1 100ml.bag @ 100 mls/hr IVPB ONCE ONE Rx#: [id number] Piperacillin-Tazobactam 3 125 100 .375 gm In Sodium Chloride 0.9% 100 ml @ 25 mls/hr IVPB Q8H [facility] Rx#: [id number] Sodium Chloride 0.9% 1, 600 600 350 000 ml @ 50 mls/hr IV . Q[facility]H [facility] Rx#:[id number] pressure bag 36 36 21 Intake, IV Titration 78.187 373.255 0 Amount Heparin Sod,Pork in 0.45% 228.97 NaCl 25,000 unit In 0.45 % NaCl 1 250ml.bag @ 12 UNITS/KG/HR 7.932 mls/hr IV .Q24H [facility] Rx#: [id number] Norepinephrine 8 mg In 0 Sodium Chloride 0.9% 250 ml @ 0.03 MCG/KG/MIN 3. 994 mls/hr IV .Q24H [facility] Rx#:[id number] Vasopressin 60 unit In 48.603 Sodium Chloride 0.9% 150 ml @ 0.03 UNITS/MIN 4.59 mls/hr IV .Q24H [facility] Rx#: [id number] propofoL 1,000 mg In 78.187 95.682 Empty Bag 1 bag @ 15 MCG/ KG/MIN 6.94 mls/hr IV . [id number] [facility] Rx#:[id number] Tube Feeding 420 480 310 Other 150 60 Output: Urine 400 426 380 Other: Voiding Method Indwelling Catheter Indwelling Catheter Indwelling Catheter ABP, PAP, CO, CI - Last Documented Arterial Blood Pressure 106/66 - Labs CBC & Chem 7: 07/06/24 06:00 07/06/24 06:00 Labs: Abnormal Lab Results - Last 24 Hours (Table) 07/05/24 07/06/24 07/06/24 Range/Units 13:00 05:05 06:00 RBC 3.62 L (4.30-5.90) m/uL Hgb 8.0 L (13.0-17.5) gm/dL Hct 26.8 L (39.0-53.0) % MCV 73.9 L (80.0-100.0) fL MCH 22.0 L (25.0-35.0) pg MCHC 29.8 L (31.0-37.0) g/dL RDW 16.8 H (11.5-15.5) % Plt Count 508 H (150-450) k/uL Neutrophils # 8.8 H (1.3-7.7) k/uL Lymphocytes # 0.7 L (1.0-4.8) k/uL APTT 47.5 H (22.0-30.0) sec ABG pH 7.49 H (7.35-7.45) ABG pCO2 27 L (35-45) mmHg ABG pO2 112 H (83-108) mmHg ABG O2 Saturation 99.1 H (94-97) % Hemoglobin 8.1 L (13.0-17.5) gm/dL Potassium (3.5-5.1) mmol/L Chloride (98-107) mmol/L Carbon Dioxide (22-30) mmol/L BUN (9-20) mg/dL Creatinine (0.66-1.25) mg/dL Calcium (8.4-10.2) mg/dL Total Protein (6.3-8.2) g/dL Albumin (3.5-5.0) g/dL 07/06/24 07/06/24 Range/Units 06:00 06:00 RBC (4.30-5.90) m/uL Hgb (13.0-17.5) gm/dL Hct (39.0-53.0) % MCV (80.0-100.0) fL MCH (25.0-35.0) pg MCHC (31.0-37.0) g/dL RDW (11.5-15.5) % Plt Count (150-450) k/uL Neutrophils # (1.3-7.7) k/uL Lymphocytes # (1.0-4.8) k/uL APTT 42.7 H (22.0-30.0) sec ABG pH (7.35-7.45) ABG pCO2 (35-45) mmHg ABG pO2 (83-108) mmHg ABG O2 Saturation (94-97) % Hemoglobin (13.0-17.5) gm/dL Potassium 3.3 L (3.5-5.1) mmol/L Chloride 116 H (98-107) mmol/L Carbon Dioxide 19 L (22-30) mmol/L BUN 8 L (9-20) mg/dL Creatinine 0.48 L (0.66-1.25) mg/dL Calcium 7.8 L (8.4-10.2) mg/dL Total Protein 5.3 L (6.3-8.2) g/dL Albumin 1.8 L (3.5-5.0) g/dL Microbiology - Last 24 Hours (Table) 07/02/24 06:05 Blood Culture - Preliminary Blood 07/02/24 09:32 Gram Stain - Final Bronchoalviolar Lavage - Right Bronchial Washings Culture - Final Serratia marcescens
--- NOTE | 2024-07-06 15:12 | P.PN ---
Subjective Progress Note Date: 07/06/24 68-year-old black male with a history of multiple medical problems including advanced lung cancer, right pleural effusion, hyperlipidemia, hypertension, GERD, type 2 diabetes. The patient presented to the emergency department, at about 8:00 PM on June 30, with strokelike symptoms. He apparently was found to have slurred speech. He apparently became incoherent, and was apparently struggling to move the left side of his body. EMS was called and he was brought into the emergency department. The patient apparently was not able to protect his airway, and required intubation and mechanical ventilation. I did speak to Dr. Rodriguez in the emergency department. The patient is transferred to the intensive care unit, for further monitoring and management. The patient's drug screen was positive for opiates and cocaine. That may have had some effect on his neurologic issues. He is currently on volume assist-control, rate 20, tidal volume 500, FiO2 40%, PEEP of 5. Blood gases initially showed a pO2 that was greater than 420, pCO2 29, pH of 7.49. The patient is on propofol at 30 mcg/kg/min, saline at 120 cc an hour. When the patient came to the intensive care unit, we placed a right radial art line, a left subclavian triple-lumen catheter, and because his endotracheal tube was defective, we replaced the endotracheal tube with a #8 endotracheal tube. Current laboratory data includes a white count of 8.6, hemoglobin 7.8, hematocrit 26.6, platelet count of 508,000. Sodium 135, potassium 3.2, chlorides 108, CO2 21, BUN 5, and creatinine 0.58. Calcium 7.5, magnesium 1.5. Albumin 2. Urine is negative. Drug screen was positive for opiates, oxycodone, and cocaine. Viral studies were negative. Chest x-ray showed an opacified right hemithorax. Progress note dated July 02, 2024. 68-year-old black male seen today in room 255. His , flew up from [place] last night, and is at the bedside. The patient is currently on volume assist- control, rate 20, tidal volume 500, FiO2 40%, PEEP of 5. Blood gases show pO2 172, pCO2 25, pH of 7.48. The FiO2 was reduced down to 30%. The patient is on propofol at 20 mcg/kg/min, norepinephrine at 33 mcg/min, heparin via weight- based protocol, and saline at 120 cc an hour. The patient CT scan of the brain revealed a an evolving CVA, involving the right side, with left-sided weakness. The patient will have tube feeds started. In addition, chest x-ray reveals an opacified right hemithorax, and bronchoscopy will be done this morning. White count 15.2, hemoglobin 8.8, hematocrit 29.1, platelet count of 659,000. PT 1 2.8, INR 1.2. Sodium 137, potassium 3.6, chlorides 111, CO2 19, BUN 4, creatinine 0.47. Glucose was 164. Calcium 7.6. Magnesium 1.6. Chest x-ray reveals a right opacified hemithorax. CT scan of the reveals acute/subacute ischemia in the right parietotemporal area, and right frontal lobe. Progress note dated July 03, 2024. 68-year-old black male seen again in room 255. The patient has a history of lung cancer, advanced. The patient presented with neurologic findings, and was found to have a right sided CVA, and more recently, a another CT scan of the brain revealed additional damage to the left side of his brain. The patient remains on the ventilator. He is on volume assist-control, rate 20, tidal volume 500, 30% FiO2, PEEP of 5. Blood gases show pO2 117, pCO2 of 28, pH of 7.44. The patient is on norepinephrine at 33 mcg/min, propofol at 20 mcg/kg/min, 0.9 to 120 cc an hour, and heparin via weight-based protocol. The patient is getting vital high-protein at 10 cc an hour. Repeat brain CT showing extension, was done yesterday, July 02. He now has bilateral ischemic strokes. The patient only moves his left lower extremity. Because of his higher doses of norepinephrine, will add vasopressin. His procalcitonin level was within normal range. We will check a cortisol level for adrenal insufficiency. Chest x-ray shows an opacified right chest. Bronchoscopy yesterday revealed significant secretions and disease, in the right lower lobe. White count 30.7, hemoglobin 8.3, hematocrit 28.2, platelet count 611,000. PTT is 42.7. Sodium 137, potassium 3.5, chlorides 116, CO2 17, BUN 4, creatinine 0.40. Glucose 131. Cultures thus far negative. Procalcitonin level is normal. Chest x-ray is unchanged. 07/04/2024, the patient is being seen for a follow-up. This morning, the patient remains sedated on propofol which is running at 20 mcg/kg/min. Remains intubated on the mechanical ventilator. He is on assist-control mode of mechanical ventilation at rate of 20, tidal volume of 500, FiO2 of 30% with a PEEP of 5. The peak airway pressure is 19. Chest x-ray from today shows complete opacification of the right lung. ET tube is in a good location. Left lung is relatively clear and there is a small left-sided pleural effusion. The blood gases from today showed a pH of 7.43 with a pCO2 of 30 and pO2 of 109. The patient has limited respiratory secretions. There is considerable amount of air leak around the ET tube and a cuff is probably blown. The bronchoscopy was done and the cultures were essentially negative. The patient is covered empirically with IV Zosyn. He remains hypotensive and he remains on norepinephrine which is running at 0.25 mcg/kg/min. IV fluids are running at 125 cc an hour of normal saline. Patient remains on IV heparin. The net fluid balance over the past 24 hours and has been in the order of 2.7 L. Blood work from today shows a white cell count of 26, hemoglobin of 8 and a platelet count of 586. Sodium is at 136, potassium is at 3.6, chloride is 1 of 15 with a bicarb of 19. BUN is 5 with a creatinine of 0.44. LFTs are essentially within normal limits. Serum cortisol is 22.3. Blood culture is negative. Bronchoscopy and the bronchoalveolar lavage there is also negative. Enteral feeding is currently on hold due to high residuals. Prior to that, the patient was on vital high-protein at the rate of 10 cc an hour. 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 He has minimal withdrawal in his left upper extremity and lower extremities and does not move his right side. Negative for Babinski sign on the left and the right foot is equivocal. Pupils are pinpoint and unreactive and the patient remains on propofol. Neurology is on the case. Vascular surgery has been consulted regarding the bilateral carotid artery disease. No plans to do a KAREN at this point in time. 07/05/2024, the patient is being seen for a follow-up. Remains intubated on mechanical ventilator. Earlier this morning, the patient was taken off sedation and the brief neurologic examination that was done revealed that the patient was not able to move his right upper and right lower extremity. He was able to move his fingers and toes upon demand on the left side. Extremely weak cough. Unable to raise his head of the bed. Poor coughing and gagging reflex at this point in time. He does have a preferential gaze in his looking into the left upper corner and the pupils are equal and reactive to light around 2 to 3 mm in size. Repeat carotid Doppler was done and the patient was found to have bilateral thrombus visualized in the bilateral internal carotid arteries that appear acute in nature and moving during real-time examination. It seems to be the clots are larger in the left internal carotid artery. There is also occlus baljinder right internal jugular vein DVT. On examination, the patient was also noted to have swelling in his left upper extremity. Ultrasound Doppler of the left upper extremity revealed a positive DVT in the left distal subclavian and axillary veins. The patient remains on IV heparin. The patient remains on mechanical ventilator. This morning, he is on assist-control mode with rate of 20, tidal volume of 500, FiO2 of 30% with a PEEP of 5. The blood gas showed a pH of 7.46 with a pCO2 of 28 and pO2 119. Fluid balance is +1 L over the past 24 hours. The patient was taken off pressors as of yesterday morning. He remains on normal saline which is running at 120 cc an hour and the patient is also on vital high-protein for enteral feeding at rate of 30 cc an hour. Chest x-ray from today shows volume loss in addition to complete opacification of the right lung. Left lung remains essentially clear. Tube is in a good location. Blood work from today shows a white cell count of 14 with a hemoglobin of 8.3 and a platelet count of 533. The PTT is therapeutic. BUN is 6 with a creatinine of 0.4 and sodium is at 138 and a bicarb deficit 18. LFTs are essentially within normal limits. The bronchoscopy endobronchial lavage that was done earlier yielded Serratia marcescens and the patient remains on IV Zosyn. On 07/06/2024, the patient remains intubated on the mechanical ventilator. Earlier this morning, the patient was on propofol that was running at 25 mcg/kg/min. Subsequently, the propofol was discontinued at around 7 AM. The patient is arousable. He is following simple commands. Extremely weak. Unable to raise his head. Unable to cough. He is moving his left upper and left lower extremity. There is a weak color tester with his left hand and is able to wiggle his toes. There is flaccid paralysis on the right side. Meanwhile, the patient is having increased respiratory secretions. The patient is currently on mechanical ventilator assist-control mode with rate of 20, tidal volume of 500, FiO2 30% with a PEEP of 5. The chest x-ray shows complete opacification of the right lung, patchy infiltration in the left infrahilar and left lower lobe area is seen in the patient's sputum sample was positive for Serratia marcescens. The patient remains on broad-spectrum antibiotics and the patient remains on IV Zosyn. Still his blood gases show a pH of 7.49 with a pCO2 of 27 and pO2 112. Normal saline was running at the rate of 40 cc an hour. The patient is currentl y off norepinephrine. The patient remains on IV heparin. The patient is on vital high-protein which is running at a rate of 50 cc an hour for enteral feeding and nutritional support. WBC count of 10.5 with a hemoglobin of 8 and a platelet count of 508. The sodium is at 139, potassium is at 3.3, bicarb is at 19, BUN is at 8 with a creatinine of 0.4. He was having some liquidy stool and stool was checked for C. difficile and it came back negative. Objective - Vital Signs Vital signs: Vital Signs Temp 98 F 07/06/24 12:00 Pulse 122 H 07/06/24 15:07 Resp 20 07/06/24 13:00 BP 105/79 07/06/24 13:00 Pulse Ox 100 07/06/24 13:00 FiO2 30 07/06/24 15:05 Intake & Output 07/05/24 07/06/24 07/06/24 18:59 06:59 18:59 Intake Total 2289.409 7511.255 681 Output Total 400 426 380 Balance 4894.656 3902.255 301 Weight 78.9 kg Intake: IV 861 736 371 Magnesium Sulfate-D5w Pmx 100 1 gm In Dextrose/Water 1 100ml.bag @ 100 mls/hr IVPB ONCE ONE Rx#: [id number] Piperacillin-Tazobactam 3 125 100 .375 gm In Sodium Chloride 0.9% 100 ml @ 25 mls/hr IVPB Q8H [facility] Rx#: [id number] Sodium Chloride 0.9% 1, 600 600 350 000 ml @ 50 mls/hr IV . Q20H [facility] Rx#:[id number] pressure bag 36 36 21 Intake, IV Titration 78.187 373.255 0 Amount Heparin Sod,Pork in 0.45% 228.97 NaCl 25,000 unit In 0.45 % NaCl 1 250ml.bag @ 12 UNITS/KG/HR 7.932 mls/hr IV .Q24H [facility] Rx#: [id number] Norepinephrine 8 mg In 0 Sodium Chloride 0.9% 250 ml @ 0.03 MCG/KG/MIN 3. 994 mls/hr IV .Q24H [facility] Rx#:[id number] Vasopressin 60 unit In 48.603 Sodium Chloride 0.9% 150 ml @ 0.03 UNITS/MIN 4.59 mls/hr IV .Q24H [facility] Rx#: [id number] propofoL 1,000 mg In 78.187 95.682 Empty Bag 1 bag @ 15 MCG/ KG/MIN 6.94 mls/hr IV . [id number] [facility] Rx#:[id number] Tube Feeding 420 480 310 Other 150 60 Output: Urine 400 426 380 Other: Voiding Method Indwelling Catheter Indwelling Catheter Indwelling Catheter ABP, PAP, CO, CI - Last Documented Arterial Blood Pressure 106/66 - Exam No acute distress, sedated, initially seen in the emergency department, and then in the intensive care unit, currently on propofol. HEENT examination is grossly unremarkable. Patient has an orally placed endotracheal tube. Neck supple. Full range of motion. No adenopathy thyromegaly or neck vein distention. Cardiovascular examination reveals regular rhythm rate. S1-S2 normal. No S3 or S4. No discernible murmur noted. Heart sounds are distant. Lungs reveal mild scattered rhonchi. No wheezes or crackles. Breath sounds are diminished on the right side. Abdomen soft without bowel sounds. Extremities are intact. No cyanosis clubbing or edema. The patient does move his left lower extremity from time to time. Skin is without rash or lesion. Neurologic examination cannot be adequately assessed at this time. Pupils are pinpoint, sluggishly reactive to light. The patient has flaccid paralysis in the right upper extremity. Minimal movement and has left side as mentioned. Babinski is negative on the left and equivocal on the right. Motor and sensory functions cannot be accurately determined. No facial asymmetry. Weak cough and a gag. - Labs CBC & Chem 7: 07/06/24 06:00 07/06/24 06:00 Labs: Abnormal Lab Results - Last 24 Hours (Table) 07/06/24 07/06/24 07/06/24 Range/Units 05:05 06:00 06:00 RBC 3.62 L (4.30-5.90) m/uL Hgb 8.0 L (13.0-17.5) gm/dL Hct 26.8 L (39.0-53.0) % MCV 73.9 L (80.0-100.0) fL MCH 22.0 L (25.0-35.0) pg MCHC 29.8 L (31.0-37.0) g/dL RDW 16.8 H (11.5-15.5) % Plt Count 508 H (150-450) k/uL Neutrophils # 8.8 H (1.3-7.7) k/uL Lymphocytes # 0.7 L (1.0-4.8) k/uL APTT (22.0-30.0) sec ABG pH 7.49 H (7.35-7.45) ABG pCO2 27 L (35-45) mmHg ABG pO2 112 H (83-108) mmHg ABG O2 Saturation 99.1 H (94-97) % Hemoglobin 8.1 L (13.0-17.5) gm/dL Potassium 3.3 L (3.5-5.1) mmol/L Chloride 116 H (98-107) mmol/L Carbon Dioxide 19 L (22-30) mmol/L BUN 8 L (9-20) mg/dL Creatinine 0.48 L (0.66-1.25) mg/dL Calcium 7.8 L (8.4-10.2) mg/dL Total Protein 5.3 L (6.3-8.2) g/dL Albumin 1.8 L (3.5-5.0) g/dL 07/06/24 Range/Units 06:00 RBC (4.30-5.90) m/uL Hgb (13.0-17.5) gm/dL Hct (39.0-53.0) % MCV (80.0-100.0) fL MCH (25.0-35.0) pg MCHC (31.0-37.0) g/dL RDW (11.5-15.5) % Plt Count (150-450) k/uL Neutrophils # (1.3-7.7) k/uL Lymphocytes # (1.0-4.8) k/uL APTT 42.7 H (22.0-30.0) sec ABG pH (7.35-7.45) ABG pCO2 (35-45) mmHg ABG pO2 (83-108) mmHg ABG O2 Saturation (94-97) % Hemoglobin (13.0-17.5) gm/dL Potassium (3.5-5.1) mmol/L Chloride (98-107) mmol/L Carbon Dioxide (22-30) mmol/L BUN (9-20) mg/dL Creatinine (0.66-1.25) mg/dL Calcium (8.4-10.2) mg/dL Total Protein (6.3-8.2) g/dL Albumin (3.5-5.0) g/dL Microbiology - Last 24 Hours (Table) 07/02/24 06:05 Blood Culture - Preliminary Blood 07/02/24 09:32 Gram Stain - Final Bronchoalviolar Lavage - Right Bronchial Washings Culture - Final Serratia marcescens Assessment and Plan Plan: Acute respiratory failure, requiring intubation/mechanical ventilation, secondar y to poor neurologic status secondary to CVA, and inability to protect airway, 06/30/2024 and the patient remains intubated on the mechanical ventilator. The patient has complete opacified right lung which is a combination of chronic pleural effusion and trapped lung with a right lung/hilar mass causing obstruction of the right upper lobe and the right lower lobe bronchi. Chest x- ray is showing left infrahilar and left lower lobe patchy infiltration and the patient sputum sample is positive for Serratia and the patient is currently on IV Zosyn. He continues to have abundant respiratory secretions. Chest x-ray and blood gas from today were noted. Right parietal/temporal acute/subacute ischemic CVA, with evolving bilateral ischemic CVAs. Most recent CAT scan of the brain on 07/02/2024 shows evolving multifocal acute/subacute CVA and the patient was found to have multiple scattered hypoattenuating areas throughout the brain with miranda/white matter loss. There is also evolution of the stroke compared to the earlier CAT scan on 07/01/2024 including bilateral frontal lobes and left basal ganglia, left caudate nucleus, right temporal lobe and left occipital parietal region and right caudate nucleus among other areas. CT of the brain showed no significant intracranial vascular abnormality. There is bilateral carotid artery disease involving the proximal internal carotid artery creating 75% stenosis on the right and 90% stenosis on the left. Repeat ultrasound with Doppler shows acute thrombus involving the anterior carotid arteries bilaterally . the patient was also found to have clot movement during real-time examination. Findings were worse on the left.and the patient currently is on IV heparin. Neurologically, the patient is arousable once off the propofol. 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 Extremely weak cough. stage IV lung cancer, the patient is known to have pulm adenocarcinoma the patient has been receiving Tabrecta on outpatient basis and his treatment was essentially to [facility]. He is known to have chronic volume loss and a chronic right-sided pleural effusion. The mass in his right upper lobe/hilum was causing right upper lobe bronchus and the right lower lobe bronchus and the patient has developed chronic right-sided pleural effusion/atelectasis which has remained unchanged on serial x-rays. Chronic persistent right-sided pleural effusion, with the possibility of postobstructive pneumonia involving the right and the left lower lobe pneumonia and the patient is currently on IV Zosyn. Right IJ DVT Left axillary and subclavian vein DVT and the patient has a subclavian triple- lumen catheter in place on the left Hypertension Hyperlipidemia Diabetes mellitus type 2 Polysubstance abuse including cocaine Acute leukocytosis Anemia of chronic disease Acid reflux Plan Will keep the patient off propofol and use Precedex at a lower dose if needed. Continue monitoring the mental status Discussed the case with vascular surgery and not a surgical candidate regarding the carotid artery disease I will continue the anticoagulation with IV heparin Not a candidate for any surgical intervention specially with his terminal stage IV non-small cell lung cancer and significant neurologic impairment following his bilateral CVAs. Continue IV Zosyn Patient currently off pressors Enteral feeding for nutritional support Continue IV Protonix Continue aspirin Discontinue triple-lumen cath in the left subclavian and the patient was given a right femoral triple-lumen catheter Vascular surgery consultation is appreciated Neurology consultation is appreciated I had a lengthy discussion with the patient's at the bedside. I explained to her the situation and the poor prognosis. Basically, the patient may not wean off mechanical ventilator easily as the patient has significant weakness and neurologic impairment following his stroke. His cough mechanism is weak and he may not be able to protect his respiratory secretions and airways. Alternatively, he may be considered for long-term vent care through a tracheostomy and a PEG tube. I do not favor this option. However, unwilling to perform those procedures if the family insists on ongoing care despite the poor prognosis and significant neurologic impairment and the patient has encountered post a stroke and his known history of stage IV lung cancer. The patient's is going to have further discussion with her family and get back to me. Will continue to follow make further recommendations based on her progress. Based on above-mentioned comorbidities, the prognosis extremely poor. This evaluation was done more than 30 minutes Time with Patient: Greater than 30
[2024-07-06] MEDS: DEXMEDETOMIDINE/0.9% NACL(PMX) 400 MCG in EMPTY BAG 1 BAG IV SCH (16:45)
[2024-07-06 18:24] LABS: Glucose,Whole Blood 86 mg/dL (70-110)
[2024-07-06 18:24] LABS: Glucose,Whole Blood 92 mg/dL (70-110)
[2024-07-06 20:58] LABS: Glucose,Whole Blood 95 mg/dL (70-110)
[2024-07-07] MEDS: POTASSIUM BICARBONATE/CIT AC 20 MEQ TABLET.EFF NG-TUBE SCH ×2 (00:21→06:53)
[2024-07-07 04:31] LABS: Anisocytosis Slight; Basophils % (A) 0 %; Eosinophils # (A) 0.1 k/uL (0-0.7); Eosinophils % (A) 1 %; HCT 26.7 % (39.0-53.0); HGB 7.9 gm/dL (13.0-17.5); Hypochromasia Marked; Lymphocytes # (A) 0.8 k/uL (1.0-4.8); Lymphocytes % (A) 8 %; MCH 21.8 pg (25.0-35.0); MCHC 29.6 g/dL (31.0-37.0); MCV 73.8 fL (80.0-100.0); Mean Platelet Volume 7.7; Microcytosis Moderate; Monocytes # (A) 0.8 k/uL (0-1.0); Monocytes % (A) 8 %; Neutrophils % (A) 81 %; Platelet Count 495 k/uL (150-450); Poikilocytosis Slight; RBC 3.61 m/uL (4.30-5.90); RDW 16.9 % (11.5-15.5); WBC 9.9 k/uL (3.8-10.6)
[2024-07-07 05:27] LABS: ALT 15 U/L (4-49); AST 31 U/L (17-59); African American GFR (CKD) >90 (>60 ml/min/1.73 sqM); Albumin 1.8 g/dL (3.5-5.0); Alkaline Phosphatase 115 U/L (38-126); Anion Gap 2 mmol/L; Blood Urea Nitrogen 11 mg/dL (9-20); Calcium 7.7 mg/dL (8.4-10.2); Carbon Dioxide 19 mmol/L (22-30); Chloride 117 mmol/L (98-107); Glucose 101 mg/dL (74-99); Magnesium 1.7 mg/dL (1.6-2.3); Non-African American GFR(CKD) >90 (>60 ml/min/1.73 sqM); Potassium 3.7 mmol/L (3.5-5.1); Sodium 138 mmol/L (137-145); Total Bilirubin 0.4 mg/dL (0.2-1.3); Total Protein 5.3 g/dL (6.3-8.2)
--- NOTE | 2024-07-07 05:36 | CT ---
EXAMINATION TYPE: CT brain wo con DATE OF EXAM: 07/07/2024 COMPARISON: CT brain 5 days earlier CLINICAL INDICATION: Male, 68 years old with history of multifocal cerebral infarcts, on heparin; [facility] , CT DLP: 1165 mGycm Automated exposure control for dose reduction was used. FINDINGS: No acute intracranial hemorrhage or midline shift. Evolving acute/subacute infarct left head of cauda te nucleus and left carlos radiata extending inferiorly into the posterior "basal ganglia is redemons trated. There is additional involving acute infarct inferior right parietal region extending into the posterior superior temporal lobe redemonstrated. There is persistent involving subacute infarct high posterior bilateral frontal lobes larger on the right redemonstrated. There is background mild-to-mo derate low attenuation in the periventricular white matter. Possible subacute infarcts at this level is not excluded. Possible evolving acute infarct right cerebellar region. The globes are intact and t he visualized sinuses are clear. IMPRESSION: Multiple bilateral evolving acute/subacute infarcts a redemonstrated as detailed above. N o acute hemorrhage or midline shift seen. [facility], , 07/07/2024 5:34 AM
[2024-07-07 05:51] LABS: ABG Base Excess -2.3 mmol/L; ABG HCO3 21 mmol/L (21-25); ABG Oxygen Saturation 99.2 % (94-97); ABG PCO2 28 mmHg (35-45); ABG PH 7.47 (7.35-7.45); ABG PO2 116 mmHg (83-108); ABG TCO2 22 mmol/L (19-24); Allen Test Performed? Yes
[2024-07-07 05:58] LABS: Glucose,Whole Blood 95 mg/dL (70-110)
[2024-07-07] MEDS: MAGNESIUM SULFATE-D5W PMX 1 GM in DEXTROSE/WATER 1 100ML.BAG IVPB ONE (06:52)
--- NOTE | 2024-07-07 07:17 | XR ---
EXAMINATION TYPE: XR chest 1V portable DATE OF EXAM: 07/07/2024 6:35 AM COMPARISON: 07/06/2024 CLINICAL INDICATION: Male, 68 years old with history of mechanical ventilation, FINDINGS: Indwelling tubes and catheters are unchanged. Complete opacification right hemithorax is unchanged. Small left-sided effusion noted in mild medial left basilar atelectasis. Stable appearance of the cardio-mediastinal structures at this time. IMPRESSION: 1. Stable portable chest. Clinical correlation and follow up until resolution is recommended. [facility], , 07/07/2024 7:15 AM
--- NOTE | 2024-07-07 07:49 | P.PN ---
Subjective Progress Note Date: 07/07/24 Principal diagnosis: Focal embolic cerebral infarcts with mobile thrombi in bilateral carotid arteries in the setting of stage IV lung cancer. Mr. Armendariz is a 68-year-old -[place] male with history of advanced lung cancer, deep venous thrombosis, diabetes, gastroesophageal reflux disease, hypertension, hyperlipidemia. He was admitted to [facility] on June 30 with altered mental status as well as slurred speech and left-sided weakness. He may have had a gaze to the left initially however EEG performed July 01 revealed only slowing without epileptiform discharges. He was intubated and placed initially on Keppra but this was discontinued after his negative EEG. On July 01 he was noted to be overbreathing the ventilator and a CT head from July 02 revealed multifocal embolic appearing infarcts in the right parietal, left occipital, bilateral frontal areas as well as left left basal ganglia and caudate. His CT angiogram in June 30 reveals a fibrofatty thrombus in the bilateral internal carotid artery with 90% stenosis of the left internal carotid artery and 75% stenosis on the right. Vascular surgery has been consulted and is considering carotid endarterectomy based on the patient's clinical course. He is currently anticoagulated on heparin drip as well as taking aspirin 81 mg daily. On exam July 04, 2024, the patient is sedated on propofol drip. However when this is weaned the patient is minimally arousable though he will not follow commands. He exhibits minimal withdrawal with his left upper and lower extrem ity and does not move the right upper and lower extremity. I do not detect a Babinski sign on the left foot and the right foot is equivocal. Nursing notes that he was moving spontaneously with his left arm and leg earlier this morning and he does exhibit some spontaneous movement but pinched on the left lower extremity. Pupils are pinpoint and unreactive and he does not blink to threat. I had a conversation with vascular surgeon Dr. Cecelia Mace in the evening of July 04, and though they had initially wished for the patient to be transferred to [facility] for vascular intervention, it was decided between us that any procedure should wait on clinical improvement as he is at risk of reperfus ion hemorrhage as well as embolus from acute procedures in light of his multifocal infarcts. Dr. Mace agreed with this, and may consider vascular intervention here at [facility] if the patient does clinically improve. On assessment July 05, the patient remains sedated on propofol, though he was noted to be potentially be following commands with his left arm per nursing last night. On my exam, when the propofol was weaned, the patient had minimally improved withdrawal with the left arm, and moderately improved withdrawal from the left leg. Right arm and leg were flaccid, and the patient was not following commands or looking at the examiner. Pupils were pinpoint and weakly reactive, I could not get him to engage with extraocular muscle movements. He is due to have a carotid ultrasound performed today to assess the degree of stenosis. This is considered to be likely a thrombus stenosis in the arteries bilaterally, so the risk of surgery would be increased or a procedure to be performed immediately. On assessment July 06, the patient's carotid ultrasound returned with e vidence of bilateral internal carotid artery thrombus on the left greater than the right. These thrombi are mobile and he also has a right internal jugular vein occlusion. On chest x-ray his right lung is opacified which is likely a combination of his history of cancer as well as aspiration pneumonia. His white count appears low and the patient is afebrile. On exam with propofol wean, the patient will not open his eyes to command, but will wiggle his toes to command. This appears to be a significant difference from 2 days ago. He was noted to be wiggling his fingers to command by staff yesterday, but I could not detect this today. He has minimal withdrawal of his left arm, and right arm and right leg are both flaccid. He may have an upgoing toe on the left but reflexes are otherwise symmetric. He has not had his routine CT scan at this time. A routine CT scan was ordered for the patient, and vascular surgery continues to be on board for the possibility of open thrombectomy. We are awaiting clinical improvement at this time prior to that consideration. On evaluation July 07, the patient is off of sedation and is moving his head spontaneously. He will follow limited commands on the left side including wiggling his fingers and toes, but he has no movement on his right side. I cannot get him to focus his eyes on me or blink to threat. Plantar responses equivocal on the right and downgoing on the left and reflexes are symmetric. He had a routine CT of the head this morning showing again them areas of multiple infarction in the right parietal, left occipital, left putamen, left caudate, as well as left centrum semiovale and frontal lobe. None of these infarcts appear to show evidence of hemorrhage at this time. Assessment: Mr. Armendariz is a 68-year-old -[place] male with history of advanced lung cancer as well as DVT for which he was taking Lovenox. He presents with evidence of multifocal embolic appearing cerebral infarcts which is developed likely since July [address] appeared relatively normal at that time. He is current on currently on heparin drip for anticoagulation but exhibits minimal responsiveness. Plan: 1. Patient's routine CT scan this morning does not show any evidence of hemorrhage. He continues on a heparin drip for his mobile carotid thrombi. 2. Vascular surgery is continuing to follow the patient and will make recommendations based on his clinical course regarding possible open thrombectomy. 3. Neurology will continue to follow the patient in house and make further recommendations as needed based on his clinical course. Objective - Vital Signs Vital signs: Vital Signs Temp 97.9 F 07/07/24 04:00 Pulse 111 H 07/07/24 07:00 Resp 27 H 07/07/24 07:00 BP 123/86 07/07/24 07:00 Pulse Ox 100 07/07/24 07:00 FiO2 30 07/07/24 04:00 Intake & Output 07/06/24 07/07/24 07/07/24 18:59 06:59 18:59 Intake Total 4653.278 1196.449 123 Output Total 575 430 45 Balance 701.943 1607.449 78 Weight 80.1 kg Intake: IV 583 836 53 Piperacillin-Tazobactam 3 100 .375 gm In Sodium Chloride 0.9% 100 ml @ 25 mls/hr IVPB Q8H [facility] Rx#: [id number] Piperacillin-Tazobactam 3 100 .375 gm In Sodium Chloride 0.9% 100 ml @ 25 mls/hr IVPB Q8H [facility] Rx#: [id number] Sodium Chloride 0.9% 1, 550 600 50 000 ml @ 50 mls/hr IV . Q20H [facility] Rx#:[id number] pressure bag 33 36 3 Intake, IV Titration 36.194 264.449 Amount Dexmedetomidine/0.9% NaCl 9.337 (Pmx) 400 mcg In Empty Bag 1 bag @ 0.2 MCG/KG/HR 3.945 mls/hr IV .Q24H [facility] Rx#:[id number] Heparin Sod,Pork in 0.45% 255.112 NaCl 25,000 unit In 0.45 % NaCl 1 250ml.bag @ 12 UNITS/KG/HR 7.932 mls/hr IV .Q24H [facility] Rx#: [id number] Norepinephrine 8 mg In 7.855 Sodium Chloride 0.9% 250 ml @ 0.03 MCG/KG/MIN 3. 994 mls/hr IV .Q24H [facility] Rx#:[id number] propofoL 1,000 mg In 28.339 Empty Bag 1 bag @ 15 MCG/ KG/MIN 6.94 mls/hr IV . [id number] [facility] Rx#:[id number] Tube Feeding 510 730 70 Other 90 Output: Urine 575 430 45 Other: Voiding Method Indwelling Catheter Self-Catheterization ABP, PAP, CO, CI - Last Documented Arterial Blood Pressure 105/63 - Labs CBC & Chem 7: 07/07/24 04:10 07/07/24 04:10 Labs: Abnormal Lab Results - Last 24 Hours (Table) 07/06/24 07/07/24 07/07/24 Range/Units 20:51 04:10 04:10 RBC 3.61 L (4.30-5.90) m/uL Hgb 7.9 L (13.0-17.5) gm/dL Hct 26.7 L (39.0-53.0) % MCV 73.8 L (80.0-100.0) fL MCH 21.8 L (25.0-35.0) pg MCHC 29.6 L (31.0-37.0) g/dL RDW 16.9 H (11.5-15.5) % Plt Count 495 H (150-450) k/uL Neutrophils # 8.0 H (1.3-7.7) k/uL Lymphocytes # 0.8 L (1.0-4.8) k/uL APTT (22.0-30.0) sec ABG pH (7.35-7.45) ABG pCO2 (35-45) mmHg ABG pO2 (83-108) mmHg ABG O2 Saturation (94-97) % Hemoglobin (13.0-17.5) gm/dL Potassium 3.4 L (3.5-5.1) mmol/L Chloride 117 H (98-107) mmol/L Carbon Dioxide 19 L (22-30) mmol/L Creatinine 0.50 L (0.66-1.25) mg/dL Glucose 101 H (74-99) mg/dL Calcium 7.7 L (8.4-10.2) mg/dL Total Protein 5.3 L (6.3-8.2) g/dL Albumin 1.8 L (3.5-5.0) g/dL 07/07/24 07/07/24 Range/Units 04:10 05:49 RBC (4.30-5.90) m/uL Hgb (13.0-17.5) gm/dL Hct (39.0-53.0) % MCV (80.0-100.0) fL MCH (25.0-35.0) pg MCHC (31.0-37.0) g/dL RDW (11.5-15.5) % Plt Count (150-450) k/uL Neutrophils # (1.3-7.7) k/uL Lymphocytes # (1.0-4.8) k/uL APTT 38.0 H (22.0-30.0) sec ABG pH 7.47 H (7.35-7.45) ABG pCO2 28 L (35-45) mmHg ABG pO2 116 H (83-108) mmHg ABG O2 Saturation 99.2 H (94-97) % Hemoglobin 7.6 L (13.0-17.5) gm/dL Potassium (3.5-5.1) mmol/L Chloride (98-107) mmol/L Carbon Dioxide (22-30) mmol/L Creatinine (0.66-1.25) mg/dL Glucose (74-99) mg/dL Calcium (8.4-10.2) mg/dL Total Protein (6.3-8.2) g/dL Albumin (3.5-5.0) g/dL
[2024-07-07] MEDS: DIPHENOX-ATROP 2.5-0.025 MG 1 EACH TAB PO PRN (10:31)
--- NOTE | 2024-07-07 11:32 | P.PN ---
Subjective Progress Note Date: 07/07/24 Principal diagnosis: Carotid stenosis Patient seen and examined today as a follow-up. He remains off any sedation. He had a CT of the brain today reports multiple bilateral evolving acute/subacute infarcts redemonstrated as detailed above with no acute hemorrhage or midline shift seen. Patient able to follow simple commands such as squeezing his left hand and wiggling his left toes however patient would not open his eyes on command. He remains intubated. Objective - Vital Signs Vital signs: Vital Signs Temp 97.5 F L 07/07/24 08:00 Pulse 97 07/07/24 10:00 Resp 23 07/07/24 10:00 BP 115/85 07/07/24 10:00 Pulse Ox 100 07/07/24 10:00 FiO2 30 07/07/24 08:00 Intake & Output 07/06/24 07/07/24 07/07/24 18:59 06:59 18:59 Intake Total 2122.168 2733.449 602.819 Output Total 575 430 150 Balance 637.103 5207.449 452.819 Weight 80.1 kg Intake: IV 583 836 212 Piperacillin-Tazobactam 3 100 .375 gm In Sodium Chloride 0.9% 100 ml @ 25 mls/hr IVPB Q8H [facility] Rx#: [id number] Piperacillin-Tazobactam 3 100 .375 gm In Sodium Chloride 0.9% 100 ml @ 25 mls/hr IVPB Q8H [facility] Rx#: [id number] Sodium Chloride 0.9% 1, 550 600 200 000 ml @ 50 mls/hr IV . Q20H [facility] Rx#:[id number] pressure bag 33 36 12 Intake, IV Titration 36.194 264.449 70.819 Amount Dexmedetomidine/0.9% NaCl 9.337 70.819 (Pmx) 400 mcg In Empty Bag 1 bag @ 0.2 MCG/KG/HR 3.945 mls/hr IV .Q24H [facility] Rx#:[id number] Heparin Sod,Pork in 0.45% 255.112 NaCl 25,000 unit In 0.45 % NaCl 1 250ml.bag @ 12 UNITS/KG/HR 7.932 mls/hr IV .Q24H [facility] Rx#: [id number] Norepinephrine 8 mg In 7.855 Sodium Chloride 0.9% 250 ml @ 0.03 MCG/KG/MIN 3. 994 mls/hr IV .Q24H [facility] Rx#:[id number] propofoL 1,000 mg In 28.339 Empty Bag 1 bag @ 15 MCG/ KG/MIN 6.94 mls/hr IV . [id number] [facility] Rx#:[id number] Tube Feeding 510 730 280 Other 90 40 Output: Urine 575 430 150 Other: Voiding Method Indwelling Catheter Self-Catheterization Indwelling Catheter ABP, PAP, CO, CI - Last Documented Arterial Blood Pressure 105/61 - Exam General appearance: The patient is intubated. HET: Head is normocephalic and atraumatic. Neck: Supple. Heart: Regular. Lungs: Equal expansion. Abdomen: Soft, nontender, nondistended. Extremities: Normal skin color and turgor. Neurological: Intubated, able to follow simple commands of squeezing left hand and wiggle left toes. - Labs CBC & Chem 7: 07/07/24 04:10 07/07/24 04:10 Labs: Abnormal Lab Results - Last 24 Hours (Table) 07/06/24 07/07/24 07/07/24 Range/Units 20:51 04:10 04:10 RBC 3.61 L (4.30-5.90) m/uL Hgb 7.9 L (13.0-17.5) gm/dL Hct 26.7 L (39.0-53.0) % MCV 73.8 L (80.0-100.0) fL MCH 21.8 L (25.0-35.0) pg MCHC 29.6 L (31.0-37.0) g/dL RDW 16.9 H (11.5-15.5) % Plt Count 495 H (150-450) k/uL Neutrophils # 8.0 H (1.3-7.7) k/uL Lymphocytes # 0.8 L (1.0-4.8) k/uL APTT (22.0-30.0) sec ABG pH (7.35-7.45) ABG pCO2 (35-45) mmHg ABG pO2 (83-108) mmHg ABG O2 Saturation (94-97) % Hemoglobin (13.0-17.5) gm/dL Potassium 3.4 L (3.5-5.1) mmol/L Chloride 117 H (98-107) mmol/L Carbon Dioxide 19 L (22-30) mmol/L Creatinine 0.50 L (0.66-1.25) mg/dL Glucose 101 H (74-99) mg/dL Calcium 7.7 L (8.4-10.2) mg/dL Total Protein 5.3 L (6.3-8.2) g/dL Albumin 1.8 L (3.5-5.0) g/dL 07/07/24 07/07/24 Range/Units 04:10 05:49 RBC (4.30-5.90) m/uL Hgb (13.0-17.5) gm/dL Hct (39.0-53.0) % MCV (80.0-100.0) fL MCH (25.0-35.0) pg MCHC (31.0-37.0) g/dL RDW (11.5-15.5) % Plt Count (150-450) k/uL Neutrophils # (1.3-7.7) k/uL Lymphocytes # (1.0-4.8) k/uL APTT 38.0 H (22.0-30.0) sec ABG pH 7.47 H (7.35-7.45) ABG pCO2 28 L (35-45) mmHg ABG pO2 116 H (83-108) mmHg ABG O2 Saturation 99.2 H (94-97) % Hemoglobin 7.6 L (13.0-17.5) gm/dL Potassium (3.5-5.1) mmol/L Chloride (98-107) mmol/L Carbon Dioxide (22-30) mmol/L Creatinine (0.66-1.25) mg/dL Glucose (74-99) mg/dL Calcium (8.4-10.2) mg/dL Total Protein (6.3-8.2) g/dL Albumin (3.5-5.0) g/dL Assessment and Plan Assessment: 1. Bilateral internal carotid artery stenosis with fibrofatty thrombus 2. Altered mental status changes, right parietal/temporal acute/subacute ischemia with a evolving bilateral ischemic CVAs 3. Occlusive right internal jugular vein DVT 4. Left distal subclavian and axillary veins positive for DVT 5. Stage IV lung cancer 6. Diabetes mellitus 7. Hypertension 8. Hyperlipidemia, 9. History of right upper extremity DVT on Lovenox Plan: Recommendation from vascular surgery on 07/01/2024 was to consider transfer to tertiary center for thrombectomy per interventional neurology versus care goal discussion. Primary medical team had discussed with patient's who had declined transfer on 07/01/2024. Carotid duplex shows mobile thrombus within carotid arteries along with right IJ vein DVT. Patient also has DVT in left upper extremity. Continue anticoagulation as long as patient can tolerate. Patient is a poor surgical candidate secondary to stage IV lung cancer as well as recent stroke. No plans surgical intervention at this time. Currently not stable for any surgical intervention, as well as a poor surgical candidate. Discussed with patient's and brother who were at the bedside plan moving forward including goals of care. All questions were answered and they seemingly understand no surgical intervention at this time. Await ongoing recommendations from neurology based on patient's overall long-term neurological status. Thank you for this consultation, we will continue to follow. The impression and plan of care has been dictated as directed. Dr. Mace I performed a history and examination of this patient, discussed the same with the dictator. I agree with the dictator's note ,documented as a scribe. Any additional findings or plans will be noted.
[2024-07-07 11:49] LABS: Glucose,Whole Blood 113 mg/dL (70-110)
--- NOTE | 2024-07-07 15:11 | P.PN ---
Subjective Progress Note Date: 07/07/24 68-year-old man with stage IV lung CA on immunotherapy, DM, HTN, HLD, recent upper extremity DVT on Eliquis, GERD, who presented to the ED with left-sided weakness and altered mental status. In the ED he underwent extensive evaluation. BP 135/98, HR 105, RR 18, 99% on RA. Patient was intubated in the ER for airway protection. Initial CT brain was negative. CBC, Coag panel, CMP significant for Hg 9.9, Hct 33.6, MCV 75.7, Plt 777, Na 132, bicarb 20, BUN 7, Cr 0.63, glu 121, alk phos 130, alb 2.9. Lactic acid 3. Trop < 0.012. Ammonia 9. CTA head and neck showed fibrofatty thrombus within the bilateral proximal internal carotid arteries creating 75% stenosis on the right and 90% stenosis in the left. CXR showed large R pleural effusion. Patient was not a candidate for TNK per interventional neurology who was contacted by ED. Vascular surgery and Neurology was consulted. Patient was started on ASA, Plavix, Lipitor and heparin infusion. Vascular surgery recommended transfer to tertiary care facility for thrombectomy. Patient's declined transfer at that time given the patient multiple cormorbidities. Repeat CT of the brain revealed multiple bilateral embolic infarcts. Cardiology was consulted for KAREN and recommended against the study due to no history of arrhythmia and known bilateral carotid artery stenosis and thrombus. Patient did undergo bronchoscopy with BAL on 06/30 which was consistent with right lung collapse. BAL cultures grew Serratia and patient was started on Zosyn. Patient's ETT was exchanged on 07/04. 07/06 Patient was seen and examined. Off propofol following simple commands. Currently intubated. Patient with foul smelling diarrhea with rectal tube in place. Currently on heparin drip at 16 units/kg/hr. Antibiotics include Zosyn. CBC RBC 3.62, Hg 8, Hct 26.8, MCV 73.9, Plt 508. APTT 42.7. ABG pH 7.49, pCO2 27. CMP K 3.3, Cl 116, bicarb 19, BUN 8, Cr 0.48, Ca 7.8, alb 1.8. Mag 1.7. CXR done today complete opacification of the right hemithorax. 07/07 Patient was seen and examined. Off propofol following simple commands. Currently on Precedex at 0.3 mcg/kg/hr. Currently intubated. Patient with foul smelling diarrhea with rectal tube in place, C. diff is negative. Currently on heparin drip at 18 units/kg/hr. Antibiotics include Zosyn 3.75 g IV TID (D3) for treatment of Serratia BAL culture. CBC RBC 3.61, Hg 7.9, Hct 26.7, MCV 73.8, Plt 495. APTT 38. ABG pH 7.47, pCO2 28. CMP Cl 117, bicarb 19, Cr 0.5, glu 101, Ca 7.7, alb 1.8. Mag 1.7. Repeat brain CT shows bilateral infarcts with no hemorrhage or midline shift. CXR done today complete opacification of the right hemithorax. Vitals Signs: BP 111/85, HR 99, RR 21, T 97.5F, 100% on FiO2 30. General: Intubated, not sedated Derm: Warm, dry Head: Atraumatic, normocephalic, symmetric Eyes: Pinpoint pupils, right-sided gaze preference, upward gaze preference, no lid lag, anicteric sclera, bilateral periorbital edema Mouth: No lip lesion, mucus membranes moist Cardiovascular: S1S2 reg, no murmur Lungs: Breath sounds only noted in left side, mechanically ventilated Abdominal: Soft, nontender to palpation, no guarding, no appreciable organomegaly Ext: No gross muscle atrophy, right upper extremity edema, no contractures Neuro: Spontaneously moving left upper extremity and left lower extremity, f ollows simple commands, wiggles toes, very weakly squeezes fingers, no gag reflex, no cough with suctioning Psych: Unable to assess Based on my assessment of this patient, this patient meets a high complexity level of care. Acute multifocal embolic ischemic strokes: ASA 81 mg PO QD. Lipitor 80 mg PO QHS. Continue Heparin drip. Monitor APTT. No plans for immediate surgical intervention per Vascular. No plans for KAREN per Cardiology. Repeat CT done 07/07 shows no hemorrhagic conversion. Neurology on board. Acute encephalopathy due to above Bilateral carotid artery thrombosis stenosis: Management as above. Acute hypoxic respiratory failure requiring intubation likely due to acute stroke and inability to protect airway and right lung collapse Severe leukocytosis with concerns of PNA: BAL cultures growing Serratia. BCx and UCx negative. Continue Zosyn 3.75 g IV TID (D3). Diarrhea: C. diff ruled out. Thrombocytosis: Likely due to iron def. anemia. Microcytic anemia: Hg 7.9. No signs of active bleeding. Transfuse if Hg < 7. CODE STATUS: FULL CODE DVT Prophylaxis: Heparin drip. GI Prophylaxis: Protonix 40 mg IV QD. Designated medical POA if patient is not able to make medical decisions for themselves: . I have reviewed the following health care consultant notes: Vascular. Neurology, Pulmonary. I have reviewed the results of the following tests: CBC, CMP, Mag, C. diff, CT brain, APTT I have ordered the following tests: I have discussed the care of this patient with the following independent historian: I have independently interpreted the following test below: CXR I have discussed the management of this patient with the following physician: This patient has a high risk of morbidity due to the following reasons: Patient requires IV anesthetics to be maintained on the ventilator which requires intensive monitoring of hemodynamics and respiratory toxicity. Patient requires IV heparin which requires intensive monitoring for toxicity (coag panel) and bleeding. Objective - Vital Signs Vital signs: Vital Signs Temp 97.5 F L 07/07/24 08:00 Pulse 99 07/07/24 08:09 Resp 21 07/07/24 08:00 BP 111/85 07/07/24 08:00 Pulse Ox 100 07/07/24 07:00 FiO2 30 07/07/24 08:00 Intake & Output 07/06/24 07/07/24 07/07/24 18:59 06:59 18:59 Intake Total 0692.878 2766.449 246 Output Total 575 430 90 Balance 108.607 7171.449 156 Weight 80.1 kg Intake: IV 583 836 106 Piperacillin-Tazobactam 3 100 .375 gm In Sodium Chloride 0.9% 100 ml @ 25 mls/hr IVPB Q8H [facility] Rx#: [id number] Piperacillin-Tazobactam 3 100 .375 gm In Sodium Chloride 0.9% 100 ml @ 25 mls/hr IVPB Q8H [facility] Rx#: [id number] Sodium Chloride 0.9% 1, 550 600 100 000 ml @ 50 mls/hr IV . Q20H [facility] Rx#:[id number] pressure bag 33 36 6 Intake, IV Titration 36.194 264.449 Amount Dexmedetomidine/0.9% NaCl 9.337 (Pmx) 400 mcg In Empty Bag 1 bag @ 0.2 MCG/KG/HR 3.945 mls/hr IV .Q24H [facility] Rx#:[id number] Heparin Sod,Pork in 0.45% 255.112 NaCl 25,000 unit In 0.45 % NaCl 1 250ml.bag @ 12 UNITS/KG/HR 7.932 mls/hr IV .Q24H [facility] Rx#: [id number] Norepinephrine 8 mg In 7.855 Sodium Chloride 0.9% 250 ml @ 0.03 MCG/KG/MIN 3. 994 mls/hr IV .Q24H [facility] Rx#:[id number] propofoL 1,000 mg In 28.339 Empty Bag 1 bag @ 15 MCG/ KG/MIN 6.94 mls/hr IV . [id number] [facility] Rx#:[id number] Tube Feeding 510 730 140 Other 90 Output: Urine 575 430 90 Other: Voiding Method Indwelling Catheter Self-Catheterization ABP, PAP, CO, CI - Last Documented Arterial Blood Pressure 99/59 - Labs CBC & Chem 7: 07/07/24 04:10 07/07/24 04:10 Labs: Abnormal Lab Results - Last 24 Hours (Table) 07/06/24 07/07/24 07/07/24 Range/Units 20:51 04:10 04:10 RBC 3.61 L (4.30-5.90) m/uL Hgb 7.9 L (13.0-17.5) gm/dL Hct 26.7 L (39.0-53.0) % MCV 73.8 L (80.0-100.0) fL MCH 21.8 L (25.0-35.0) pg MCHC 29.6 L (31.0-37.0) g/dL RDW 16.9 H (11.5-15.5) % Plt Count 495 H (150-450) k/uL Neutrophils # 8.0 H (1.3-7.7) k/uL Lymphocytes # 0.8 L (1.0-4.8) k/uL APTT (22.0-30.0) sec ABG pH (7.35-7.45) ABG pCO2 (35-45) mmHg ABG pO2 (83-108) mmHg ABG O2 Saturation (94-97) % Hemoglobin (13.0-17.5) gm/dL Potassium 3.4 L (3.5-5.1) mmol/L Chloride 117 H (98-107) mmol/L Carbon Dioxide 19 L (22-30) mmol/L Creatinine 0.50 L (0.66-1.25) mg/dL Glucose 101 H (74-99) mg/dL Calcium 7.7 L (8.4-10.2) mg/dL Total Protein 5.3 L (6.3-8.2) g/dL Albumin 1.8 L (3.5-5.0) g/dL 07/07/24 07/07/24 Range/Units 04:10 05:49 RBC (4.30-5.90) m/uL Hgb (13.0-17.5) gm/dL Hct (39.0-53.0) % MCV (80.0-100.0) fL MCH (25.0-35.0) pg MCHC (31.0-37.0) g/dL RDW (11.5-15.5) % Plt Count (150-450) k/uL Neutrophils # (1.3-7.7) k/uL Lymphocytes # (1.0-4.8) k/uL APTT 38.0 H (22.0-30.0) sec ABG pH 7.47 H (7.35-7.45) ABG pCO2 28 L (35-45) mmHg ABG pO2 116 H (83-108) mmHg ABG O2 Saturation 99.2 H (94-97) % Hemoglobin 7.6 L (13.0-17.5) gm/dL Potassium (3.5-5.1) mmol/L Chloride (98-107) mmol/L Carbon Dioxide (22-30) mmol/L Creatinine (0.66-1.25) mg/dL Glucose (74-99) mg/dL Calcium (8.4-10.2) mg/dL Total Protein (6.3-8.2) g/dL Albumin (3.5-5.0) g/dL
[2024-07-07 16:41] LABS: Glucose,Whole Blood 110 mg/dL (70-110)
--- NOTE | 2024-07-07 16:43 | P.PN ---
Subjective Progress Note Date: 07/07/24 68-year-old black male with a history of multiple medical problems including advanced lung cancer, right pleural effusion, hyperlipidemia, hypertension, GERD, type 2 diabetes. The patient presented to the emergency department, at about 8:00 PM on June 30, with strokelike symptoms. He apparently was found to have slurred speech. He apparently became incoherent, and was apparently struggling to move the left side of his body. EMS was called and he was brought into the emergency department. The patient apparently was not able to protect his airway, and required intubation and mechanical ventilation. I did speak to Dr. Rodriguez in the emergency department. The patient is transferred to the intensive care unit, for further monitoring and management. The patient's drug screen was positive for opiates and cocaine. That may have had some effect on his neurologic issues. He is currently on volume assist-control, rate 20, tidal volume 500, FiO2 40%, PEEP of 5. Blood gases initially showed a pO2 that was greater than 420, pCO2 29, pH of 7.49. The patient is on propofol at 30 mcg/kg/min, saline at 120 cc an hour. When the patient came to the intensive care unit, we placed a right radial art line, a left subclavian triple-lumen catheter, and because his endotracheal tube was defective, we replaced the endotracheal tube with a #8 endotracheal tube. Current laboratory data includes a white count of 8.6, hemoglobin 7.8, hematocrit 26.6, platelet count of 508,000. Sodium 135, potassium 3.2, chlorides 108, CO2 21, BUN 5, and creatinine 0.58. Calcium 7.5, magnesium 1.5. Albumin 2. Urine is negative. Drug screen was positive for opiates, oxycodone, and cocaine. Viral studies were negative. Chest x-ray showed an opacified right hemithorax. Progress note dated July 02, 2024. 68-year-old black male seen today in room 255. His , flew up from [place] last night, and is at the bedside. The patient is currently on volume assist- control, rate 20, tidal volume 500, FiO2 40%, PEEP of 5. Blood gases show pO2 172, pCO2 25, pH of 7.48. The FiO2 was reduced down to 30%. The patient is on propofol at 20 mcg/kg/min, norepinephrine at 33 mcg/min, heparin via weight- based protocol, and saline at 120 cc an hour. The patient CT scan of the brain revealed a an evolving CVA, involving the right side, with left-sided weakness. The patient will have tube feeds started. In addition, chest x-ray reveals an opacified right hemithorax, and bronchoscopy will be done this morning. White count 15.2, hemoglobin 8.8, hematocrit 29.1, platelet count of 659,000. PT 1 2.8, INR 1.2. Sodium 137, potassium 3.6, chlorides 111, CO2 19, BUN 4, creatinine 0.47. Glucose was 164. Calcium 7.6. Magnesium 1.6. Chest x-ray reveals a right opacified hemithorax. CT scan of the reveals acute/subacute ischemia in the right parietotemporal area, and right frontal lobe. Progress note dated July 03, 2024. 68-year-old black male seen again in room 255. The patient has a history of lung cancer, advanced. The patient presented with neurologic findings, and was found to have a right sided CVA, and more recently, a another CT scan of the brain revealed additional damage to the left side of his brain. The patient remains on the ventilator. He is on volume assist-control, rate 20, tidal volume 500, 30% FiO2, PEEP of 5. Blood gases show pO2 117, pCO2 of 28, pH of 7.44. The patient is on norepinephrine at 33 mcg/min, propofol at 20 mcg/kg/min, 0.9 to 120 cc an hour, and heparin via weight-based protocol. The patient is getting vital high-protein at 10 cc an hour. Repeat brain CT showing extension, was done yesterday, July 02. He now has bilateral ischemic strokes. The patient only moves his left lower extremity. Because of his higher doses of norepinephrine, will add vasopressin. His procalcitonin level was within normal range. We will check a cortisol level for adrenal insufficiency. Chest x-ray shows an opacified right chest. Bronchoscopy yesterday revealed significant secretions and disease, in the right lower lobe. White count 30.7, hemoglobin 8.3, hematocrit 28.2, platelet count 611,000. PTT is 42.7. Sodium 137, potassium 3.5, chlorides 116, CO2 17, BUN 4, creatinine 0.40. Glucose 131. Cultures thus far negative. Procalcitonin level is normal. Chest x-ray is unchanged. 07/04/2024, the patient is being seen for a follow-up. This morning, the patient remains sedated on propofol which is running at 20 mcg/kg/min. Remains intubated on the mechanical ventilator. He is on assist-control mode of mechanical ventilation at rate of 20, tidal volume of 500, FiO2 of 30% with a PEEP of 5. The peak airway pressure is 19. Chest x-ray from today shows complete opacification of the right lung. ET tube is in a good location. Left lung is relatively clear and there is a small left-sided pleural effusion. The blood gases from today showed a pH of 7.43 with a pCO2 of 30 and pO2 of 109. The patient has limited respiratory secretions. There is considerable amount of air leak around the ET tube and a cuff is probably blown. The bronchoscopy was done and the cultures were essentially negative. The patient is covered empirically with IV Zosyn. He remains hypotensive and he remains on norepinephrine which is running at 0.25 mcg/kg/min. IV fluids are running at 125 cc an hour of normal saline. Patient remains on IV heparin. The net fluid balance over the past 24 hours and has been in the order of 2.7 L. Blood work from today shows a white cell count of 26, hemoglobin of 8 and a platelet count of 586. Sodium is at 136, potassium is at 3.6, chloride is 1 of 15 with a bicarb of 19. BUN is 5 with a creatinine of 0.44. LFTs are essentially within normal limits. Serum cortisol is 22.3. Blood culture is negative. Bronchoscopy and the bronchoalveolar lavage there is also negative. Enteral feeding is currently on hold due to high residuals. Prior to that, the patient was on vital high-protein at the rate of 10 cc an hour. 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 He has minimal withdrawal in his left upper extremity and lower extremities and does not move his right side. Negative for Babinski sign on the left and the right foot is equivocal. Pupils are pinpoint and unreactive and the patient remains on propofol. Neurology is on the case. Vascular surgery has been consulted regarding the bilateral carotid artery disease. No plans to do a KAREN at this point in time. 07/05/2024, the patient is being seen for a follow-up. Remains intubated on mechanical ventilator. Earlier this morning, the patient was taken off sedation and the brief neurologic examination that was done revealed that the patient was not able to move his right upper and right lower extremity. He was able to move his fingers and toes upon demand on the left side. Extremely weak cough. Unable to raise his head of the bed. Poor coughing and gagging reflex at this point in time. He does have a preferential gaze in his looking into the left upper corner and the pupils are equal and reactive to light around 2 to 3 mm in size. Repeat carotid Doppler was done and the patient was found to have bilateral thrombus visualized in the bilateral internal carotid arteries that appear acute in nature and moving during real-time examination. It seems to be the clots are larger in the left internal carotid artery. There is also occlus baljinder right internal jugular vein DVT. On examination, the patient was also noted to have swelling in his left upper extremity. Ultrasound Doppler of the left upper extremity revealed a positive DVT in the left distal subclavian and axillary veins. The patient remains on IV heparin. The patient remains on mechanical ventilator. This morning, he is on assist-control mode with rate of 20, tidal volume of 500, FiO2 of 30% with a PEEP of 5. The blood gas showed a pH of 7.46 with a pCO2 of 28 and pO2 119. Fluid balance is +1 L over the past 24 hours. The patient was taken off pressors as of yesterday morning. He remains on normal saline which is running at 120 cc an hour and the patient is also on vital high-protein for enteral feeding at rate of 30 cc an hour. Chest x-ray from today shows volume loss in addition to complete opacification of the right lung. Left lung remains essentially clear. Tube is in a good location. Blood work from today shows a white cell count of 14 with a hemoglobin of 8.3 and a platelet count of 533. The PTT is therapeutic. BUN is 6 with a creatinine of 0.4 and sodium is at 138 and a bicarb deficit 18. LFTs are essentially within normal limits. The bronchoscopy endobronchial lavage that was done earlier yielded Serratia marcescens and the patient remains on IV Zosyn. On 07/06/2024, the patient remains intubated on the mechanical ventilator. Earlier this morning, the patient was on propofol that was running at 25 mcg/kg/min. Subsequently, the propofol was discontinued at around 7 AM. The patient is arousable. He is following simple commands. Extremely weak. Unable to raise his head. Unable to cough. He is moving his left upper and left lower extremity. There is a weak crown attacher with his left hand and is able to wiggle his toes. There is flaccid paralysis on the right side. Meanwhile, the patient is having increased respiratory secretions. The patient is currently on mechanical ventilator assist-control mode with rate of 20, tidal volume of 500, FiO2 30% with a PEEP of 5. The chest x-ray shows complete opacification of the right lung, patchy infiltration in the left infrahilar and left lower lobe area is seen in the patient's sputum sample was positive for Serratia marcescens. The patient remains on broad-spectrum antibiotics and the patient remains on IV Zosyn. Still his blood gases show a pH of 7.49 with a pCO2 of 27 and pO2 112. Normal saline was running at the rate of 40 cc an hour. The patient is currentl y off norepinephrine. The patient remains on IV heparin. The patient is on vital high-protein which is running at a rate of 50 cc an hour for enteral feeding and nutritional support. WBC count of 10.5 with a hemoglobin of 8 and a platelet count of 508. The sodium is at 139, potassium is at 3.3, bicarb is at 19, BUN is at 8 with a creatinine of 0.4. He was having some liquidy stool and stool was checked for C. difficile and it came back negative. On 07/07/2024, patient's condition essentially unchanged. Patient is currently on low-dose Precedex at 0.3 mcg/kg/h. More sedated this morning. Was unable to follow any commands. Will gradually wean off the Precedex and reevaluate his mentation. A follow-up CAT scan of the brain was done today and the patient was found to have no evidence of any intracranial bleed. Nevertheless, there was multiple infarcts and the patient had evolving acute/subacute infarct involving the left head of the caudate nucleus and left carlos radiata extending inferiorly into the posterior basal ganglia. In addition, there was acute infarct in the inferior right parietal region extending to the posterior superior temporal lobe. There was also persistent subacute infarct hide posterior bilateral frontal lobes and there is also background mild to moderate continuation and periventricular white matter changes. There is also possibly evolution of an infarct in the right cerebellar region. The patient remains on IV heparin. Hemodynamically stable. Remains on the mechanical ventilator assist-control mode with rate of 20, tidal volume of 500, FiO2 30% with a PEEP of 5. Blood gas shows a pH of 7.47 with a pCO2 of 23 and pO2 116. Not a candidate for extubation due to his significant neurologic impairment and poor ability to maintain his airway patency and poor coughing. The patient remains on normal saline at rate of 50 cc an hour. The patient is on vital high-protein at rate of 70. He was having diarrhea and stool for C. difficile was negative. WBC count is at 9.9 with a hemoglobin 7.9 and a platelet count of 495. BUN is 11 with a creatinine of 0.5. Sodium levels at 138 and a potassium level is at 3.7. Chloride is 117. Otherwise, no other significant events over the past 24 hours. Objective - Vital Signs Vital signs: Vital Signs Temp 97.5 F L 07/07/24 08:00 Pulse 101 H 07/07/24 16:00 Resp 25 H 07/07/24 16:00 BP 101/71 07/07/24 16:00 Pulse Ox 100 07/07/24 16:00 FiO2 30 07/07/24 16:00 Intake & Output 07/06/24 07/07/24 07/07/24 18:59 06:59 18:59 Intake Total 9053.531 0485.449 1322.816 Output Total 575 430 315 Balance 572.831 7252.449 1007.816 Weight 80.1 kg 80.1 kg Intake: IV 583 836 577 Piperacillin-Tazobactam 3 100 .375 gm In Sodium Chloride 0.9% 100 ml @ 25 mls/hr IVPB Q8H [facility] Rx#: [id number] Piperacillin-Tazobactam 3 100 100 .375 gm In Sodium Chloride 0.9% 100 ml @ 25 mls/hr IVPB Q8H [facility] Rx#: [id number] Sodium Chloride 0.9% 1, 550 600 450 000 ml @ 50 mls/hr IV . Q20H [facility] Rx#:[id number] pressure bag 33 36 27 Intake, IV Titration 36.194 264.449 75.816 Amount Dexmedetomidine/0.9% NaCl 9.337 75.816 (Pmx) 400 mcg In Empty Bag 1 bag @ 0.2 MCG/KG/HR 3.945 mls/hr IV .Q24H [facility] Rx#:[id number] Heparin Sod,Pork in 0.45% 255.112 NaCl 25,000 unit In 0.45 % NaCl 1 250ml.bag @ 12 UNITS/KG/HR 7.932 mls/hr IV .Q24H [facility] Rx#: [id number] Norepinephrine 8 mg In 7.855 Sodium Chloride 0.9% 250 ml @ 0.03 MCG/KG/MIN 3. 994 mls/hr IV .Q24H [facility] Rx#:[id number] propofoL 1,000 mg In 28.339 Empty Bag 1 bag @ 15 MCG/ KG/MIN 6.94 mls/hr IV . [id number] [facility] Rx#:[id number] Tube Feeding 510 730 630 Other 90 40 Output: Urine 575 430 315 Other: Voiding Method Indwelling Catheter Self-Catheterization Indwelling Catheter ABP, PAP, CO, CI - Last Documented Arterial Blood Pressure 97/56 - Exam No acute distress, sedated, initially seen in the emergency department, and then in the intensive care unit, currently on Precedex which is running at 0.3 mcg/kg/h. HEENT examination is grossly unremarkable. Patient has an orally placed endotracheal tube. Neck supple. Full range of motion. No adenopathy thyromegaly or neck vein distention. Cardiovascular examination reveals regular rhythm rate. S1-S2 normal. No S3 or S4. No discernible murmur noted. Heart sounds are distant. Lungs reveal mild scattered rhonchi. No wheezes or crackles. Breath sounds are diminished on the right side. Abdomen soft without bowel sounds. Extremities are intact. No cyanosis clubbing or edema. The patient does move his left lower extremity from time to time. Skin is without rash or lesion. Neurologic examination cannot be adequately assessed at this time. Pupils are pinpoint, sluggishly reactive to light. The patient has flaccid paralysis in the right upper extremity. Minimal movement and has left side as mentioned. Babinski is negative on the left and equivocal on the right. Motor and sensory functions cannot be accurately determined. No facial asymmetry. Weak cough and a gag. - Labs CBC & Chem 7: 07/07/24 04:10 07/07/24 04:10 Labs: Abnormal Lab Results - Last 24 Hours (Table) 07/06/24 07/07/24 07/07/24 Range/Units 20:51 04:10 04:10 RBC 3.61 L (4.30-5.90) m/uL Hgb 7.9 L (13.0-17.5) gm/dL Hct 26.7 L (39.0-53.0) % MCV 73.8 L (80.0-100.0) fL MCH 21.8 L (25.0-35.0) pg MCHC 29.6 L (31.0-37.0) g/dL RDW 16.9 H (11.5-15.5) % Plt Count 495 H (150-450) k/uL Neutrophils # 8.0 H (1.3-7.7) k/uL Lymphocytes # 0.8 L (1.0-4.8) k/uL APTT (22.0-30.0) sec ABG pH (7.35-7.45) ABG pCO2 (35-45) mmHg ABG pO2 (83-108) mmHg ABG O2 Saturation (94-97) % Hemoglobin (13.0-17.5) gm/dL Potassium 3.4 L (3.5-5.1) mmol/L Chloride 117 H (98-107) mmol/L Carbon Dioxide 19 L (22-30) mmol/L Creatinine 0.50 L (0.66-1.25) mg/dL Glucose 101 H (74-99) mg/dL POC Glucose (mg/dL) (70-110) mg/dL Calcium 7.7 L (8.4-10.2) mg/dL Total Protein 5.3 L (6.3-8.2) g/dL Albumin 1.8 L (3.5-5.0) g/dL 07/07/24 07/07/24 07/07/24 Range/Units 04:10 05:49 11:47 RBC (4.30-5.90) m/uL Hgb (13.0-17.5) gm/dL Hct (39.0-53.0) % MCV (80.0-100.0) fL MCH (25.0-35.0) pg MCHC (31.0-37.0) g/dL RDW (11.5-15.5) % Plt Count (150-450) k/uL Neutrophils # (1.3-7.7) k/uL Lymphocytes # (1.0-4.8) k/uL APTT 38.0 H (22.0-30.0) sec ABG pH 7.47 H (7.35-7.45) ABG pCO2 28 L (35-45) mmHg ABG pO2 116 H (83-108) mmHg ABG O2 Saturation 99.2 H (94-97) % Hemoglobin 7.6 L (13.0-17.5) gm/dL Potassium (3.5-5.1) mmol/L Chloride (98-107) mmol/L Carbon Dioxide (22-30) mmol/L Creatinine (0.66-1.25) mg/dL Glucose (74-99) mg/dL POC Glucose (mg/dL) 113 H (70-110) mg/dL Calcium (8.4-10.2) mg/dL Total Protein (6.3-8.2) g/dL Albumin (3.5-5.0) g/dL 07/07/24 Range/Units 12:45 RBC (4.30-5.90) m/uL Hgb (13.0-17.5) gm/dL Hct (39.0-53.0) % MCV (80.0-100.0) fL MCH (25.0-35.0) pg MCHC (31.0-37.0) g/dL RDW (11.5-15.5) % Plt Count (150-450) k/uL Neutrophils # (1.3-7.7) k/uL Lymphocytes # (1.0-4.8) k/uL APTT 57.2 H (22.0-30.0) sec ABG pH (7.35-7.45) ABG pCO2 (35-45) mmHg ABG pO2 (83-108) mmHg ABG O2 Saturation (94-97) % Hemoglobin (13.0-17.5) gm/dL Potassium (3.5-5.1) mmol/L Chloride (98-107) mmol/L Carbon Dioxide (22-30) mmol/L Creatinine (0.66-1.25) mg/dL Glucose (74-99) mg/dL POC Glucose (mg/dL) (70-110) mg/dL Calcium (8.4-10.2) mg/dL Total Protein (6.3-8.2) g/dL Albumin (3.5-5.0) g/dL Microbiology - Last 24 Hours (Table) 07/02/24 06:05 Blood Culture - Final Blood Assessment and Plan Plan: Acute respiratory failure, requiring intubation/mechanical ventilation, secondary to poor neurologic status secondary to CVA, and inability to protect airway, 06/30/2024 and the patient remains intubated on the mechanical ventilator. The patient has complete opacified right lung which is a combination of chronic pleural effusion and trapped lung with a right lung/hilar mass causing obstruction of the right upper lobe and the right lower lobe bronchi. Chest x-ray is showing left infrahilar and left lower lobe patchy infiltration and the patient sputum sample is positive for Serratia and the patient is currently on IV Zosyn. He continues to have abundant respiratory secretions. Chest x-ray and blood gas from today were noted. No major interval change in his respiratory status over the past 24 hours. Right parietal/temporal acute/subacute ischemic CVA, with evolving bilateral ischemic CVAs. Most recent CAT scan of the brain on 07/02/2024 shows evolving multifocal acute/subacute CVA and the patient was found to have multiple scattered hypoattenuating areas throughout the brain with miranda/white matter loss. There is also evolution of the stroke compared to the earlier CAT scan on 07/01/2024 including bilateral frontal lobes and left basal ganglia, left caudate nucleus, right temporal lobe and left occipital parietal region and right caudate nucleus among other areas. CT of the brain showed no significant intracranial vascular abnormality. There is bilateral carotid artery disease involving the proximal internal carotid artery creating 75% stenosis on the r ight and 90% stenosis on the left. Repeat ultrasound with Doppler shows acute thrombus involving the anterior carotid arteries bilaterally . the patient was also found to have clot movement during real-time examination. Findings were worse on the left.and the patient currently is on IV heparin. Neurologically, unchanged and follow-up CAT scan of the brain was done on 07/07/2024 showed no evidence of any bleeding and there is extensive bilateral acute/subacute stroke in evolution. There is significant neurologic impairment. There is right-sided hemiplegia and considerable weakness in the left side with nearly absent cough and a gag. Unable to protect his airways. stage IV lung cancer, the patient is known to have pulm adenocarcinoma the patient has been receiving Tabrecta on outpatient basis and his treatment was essentially to [facility]. He is known to have chronic volume loss and a chronic right-sided pleural effusion. The mass in his right upper lobe/hilum was causing right upper lobe bronchus and the right lower lobe bronchus and the patient has developed chronic right-sided pleural effusion/atelectasis which has remained unchanged on serial x-rays. Chronic persistent right-sided pleural effusion, with the possibility of postobstructive pneumonia involving the right and the left lower lobe pneumonia and the patient is currently on IV Zosyn. Right IJ DVT Left axillary and subclavian vein DVT and the patient has a subclavian triple- lumen catheter in place on the left Hypertension Hyperlipidemia Diabetes mellitus type 2 Polysubstance abuse including cocaine Acute leukocytosis Anemia of chronic disease Acid reflux Plan Will keep the patient on Precedex at a lower dose. Continue monitoring the mental status Repeat CAT scan of the brain was noted and there is no evidence of any bleed since Discussed the case with vascular surgery and not a surgical candidate regarding the carotid artery disease I will continue the anticoagulation with IV heparin Not a candidate for any surgical intervention specially with his terminal stage IV non-small cell lung cancer and significant neurologic impairment following his bilateral CVAs. Continue IV Zosyn Patient currently off pressors Enteral feeding for nutritional support Continue IV Protonix Continue aspirin Discontinue triple-lumen cath in the left subclavian and the patient was given a right femoral triple-lumen catheter Vascular surgery consultation is appreciated Neurology consultation is appreciated I had a lengthy discussion with the patient's at the bedside yesterday. I explained to her the situation and the poor prognosis. Basically, the patient may not wean off mechanical ventilator easily as the patient has significant weakness and neurologic impairment following his stroke. His cough mechanism is weak and he may not be able to protect his respiratory secretions and airways. Alternatively, he may be considered for long-term vent care through a tracheostomy and a PEG tube. I do not favor this option. However, unwilling to perform those procedures if the family insists on ongoing care despite the poor prognosis and significant neurologic impairment and the patient has encountered post a stroke and his known history of stage IV lung cancer. The patient's is going to have further discussion with her family and get back to me. I am in favor of not proceeding with a tracheostomy tube as the patient's neurologic status is very poor and there is considerable impairment in his underlying neurological functions. He is obviously not a candidate for extubation. Awaiting further decisions from the family. Will continue to follow make further recommendations based on her progress. Based on above-mentioned comorbidities, the prognosis extremely poor. This evaluation was done more than 30 minutes Time with Patient: Greater than 30
[2024-07-07 18:18] LABS: Glucose,Whole Blood 107 mg/dL (70-110)
[2024-07-08 04:34] LABS: Anisocytosis Slight; HCT 25.3 % (39.0-53.0); HGB 7.5 gm/dL (13.0-17.5); Hypochromasia Marked; MCH 22.2 pg (25.0-35.0); MCHC 29.8 g/dL (31.0-37.0); MCV 74.5 fL (80.0-100.0); Mean Platelet Volume 7.8; Microcytosis Moderate; Platelet Count 447 k/uL (150-450); RDW 17.2 % (11.5-15.5); WBC 9.6 k/uL (3.8-10.6)
[2024-07-08 04:35] LABS: Basophils % (A) 0 %; Eosinophils # (A) 0.1 k/uL (0-0.7); Eosinophils % (A) 1 %; Lymphocytes # (A) 0.9 k/uL (1.0-4.8); Lymphocytes % (A) 9 %; Monocytes # (A) 0.9 k/uL (0-1.0); Monocytes % (A) 9 %; Neutrophils # (A) 7.7 k/uL (1.3-7.7); Neutrophils % (A) 80 %; Poikilocytosis Slight
[2024-07-08 05:11] LABS: African American GFR (CKD) >90 (>60 ml/min/1.73 sqM); Anion Gap 3 mmol/L; Blood Urea Nitrogen 16 mg/dL (9-20); Carbon Dioxide 20 mmol/L (22-30); Chloride 115 mmol/L (98-107); Glucose 109 mg/dL (74-99); Magnesium 1.6 mg/dL (1.6-2.3); Non-African American GFR(CKD) >90 (>60 ml/min/1.73 sqM); Potassium 3.7 mmol/L (3.5-5.1); Sodium 138 mmol/L (137-145)
[2024-07-08 05:49] LABS: ABG Base Excess -2.4 mmol/L; ABG HCO3 21 mmol/L (21-25); ABG Oxygen Saturation 98.2 % (94-97); ABG PCO2 28 mmHg (35-45); ABG PH 7.47 (7.35-7.45); ABG PO2 100 mmHg (83-108); ABG TCO2 22 mmol/L (19-24); Allen Test Performed? Yes
[2024-07-08] MEDS: POTASSIUM BICARBONATE/CIT AC 20 MEQ TABLET.EFF NG-TUBE SCH (06:16)
[2024-07-08] MEDS: MAGNESIUM SULFATE-D5W PMX 1 GM in DEXTROSE/WATER 1 100ML.BAG IVPB SCH (06:17)
--- NOTE | 2024-07-08 08:21 | XR ---
EXAMINATION TYPE: XR chest 1V portable DATE OF EXAM: 07/08/2024 6:25 AM COMPARISON: 07/07/2024 CLINICAL INDICATION: Male, 68 years old with history of mechanical ventilation, FINDINGS: Indwelling tubes and catheters are unchanged. Hilar mass with complete opacification right hemithorax. Stable appearance of the cardio-mediastinal structures at this time. Pleural effusion unchanged. IMPRESSION: 1. Stable portable chest. Clinical correlation and follow up until resolution is recommended. [facility], , 07/08/2024 8:19 AM
--- NOTE | 2024-07-08 08:25 | P.PN ---
Subjective Progress Note Date: 07/08/24 Principal diagnosis: Carotid stenosis Patient seen and examined today as a follow-up. He remains off any sedation. He had a CT of the brain yesterday which reports multiple bilateral evolving acute/subacute infarcts redemonstrated as detailed above with no acute hemorrhage or midline shift seen. Patient able to follow simple commands such as squeezing his left hand and wiggling his left toes as well as patient did blink his eyes on command. He continues to have lateral gaze to the left. he remains intubated. Objective - Vital Signs Vital signs: Vital Signs Temp 97.6 F 07/08/24 04:00 Pulse 93 07/08/24 07:37 Resp 32 H 07/08/24 06:00 BP 94/73 07/08/24 06:00 Pulse Ox 100 07/08/24 06:00 FiO2 30 07/08/24 07:38 Intake & Output 07/07/24 07/08/24 07/08/24 18:59 06:59 18:59 Intake Total 8630.556 9983.674 Output Total 400 445 Balance 6242.015 9340.674 Weight 80.1 kg 82.2 kg Intake: IV 736 736 Piperacillin-Tazobactam 3 100 100 .375 gm In Sodium Chloride 0.9% 100 ml @ 25 mls/hr IVPB Q8H [facility] Rx#: [id number] Sodium Chloride 0.9% 1, 600 600 000 ml @ 50 mls/hr IV . Q20H [facility] Rx#:[id number] pressure bag 36 36 Intake, IV Titration 109.055 293.674 Amount Dexmedetomidine/0.9% NaCl 109.055 48.786 (Pmx) 400 mcg In Empty Bag 1 bag @ 0.2 MCG/KG/HR 3.945 mls/hr IV .Q24H [facility] Rx#:[id number] Heparin Sod,Pork in 0.45% 244.888 NaCl 25,000 unit In 0.45 % NaCl 1 250ml.bag @ 12 UNITS/KG/HR 7.932 mls/hr IV .Q24H [facility] Rx#: [id number] Tube Feeding 840 840 Other 80 110 Output: Urine 400 445 Other: Voiding Method Indwelling Catheter Indwelling Catheter ABP, PAP, CO, CI - Last Documented Arterial Blood Pressure 104/68 - Exam General appearance: The patient is intubated. HET: Head is normocephalic and atraumatic. Lateral gaze to the left. Neck: Supple. Heart: Regular. Lungs: Equal expansion. Abdomen: Soft, nontender, nondistended. Extremities: Normal skin color and turgor. Bilateral upper extremity swelling, right greater than left. Neurological: Intubated, able to follow simple commands of squeezing left hand and wiggle left toes and blinking eyes. - Labs CBC & Chem 7: 07/08/24 04:06 07/08/24 04:06 Labs: Abnormal Lab Results - Last 24 Hours (Table) 07/07/24 07/07/24 07/08/24 Range/Units 11:47 12:45 04:06 RBC (4.30-5.90) m/uL Hgb (13.0-17.5) gm/dL Hct (39.0-53.0) % MCV (80.0-100.0) fL MCH (25.0-35.0) pg MCHC (31.0-37.0) g/dL RDW (11.5-15.5) % Lymphocytes # (1.0-4.8) k/uL APTT 57.2 H (22.0-30.0) sec ABG pH (7.35-7.45) ABG pCO2 (35-45) mmHg ABG O2 Saturation (94-97) % Hemoglobin (13.0-17.5) gm/dL Chloride 115 H (98-107) mmol/L Carbon Dioxide 20 L (22-30) mmol/L Creatinine 0.47 L (0.66-1.25) mg/dL Glucose 109 H (74-99) mg/dL POC Glucose (mg/dL) 113 H (70-110) mg/dL Calcium 8.0 L (8.4-10.2) mg/dL 07/08/24 07/08/24 07/08/24 Range/Units 04:06 04:06 05:45 RBC 3.40 L (4.30-5.90) m/uL Hgb 7.5 L (13.0-17.5) gm/dL Hct 25.3 L (39.0-53.0) % MCV 74.5 L (80.0-100.0) fL MCH 22.2 L (25.0-35.0) pg MCHC 29.8 L (31.0-37.0) g/dL RDW 17.2 H (11.5-15.5) % Lymphocytes # 0.9 L (1.0-4.8) k/uL APTT 42.1 H (22.0-30.0) sec ABG pH 7.47 H (7.35-7.45) ABG pCO2 28 L (35-45) mmHg ABG O2 Saturation 98.2 H (94-97) % Hemoglobin 7.7 L (13.0-17.5) gm/dL Chloride (98-107) mmol/L Carbon Dioxide (22-30) mmol/L Creatinine (0.66-1.25) mg/dL Glucose (74-99) mg/dL POC Glucose (mg/dL) (70-110) mg/dL Calcium (8.4-10.2) mg/dL Microbiology - Last 24 Hours (Table) 07/02/24 06:05 Blood Culture - Final Blood Assessment and Plan Assessment: 1. Bilateral internal carotid artery stenosis with fibrofatty thrombus 2. Altered mental status changes, right parietal/temporal acute/subacute ischemia with a evolving bilateral ischemic CVAs 3. Occlusive right internal jugular vein DVT 4. Left distal subclavian and axillary veins positive for DVT 5. Stage IV lung cancer 6. Diabetes mellitus 7. Hypertension 8. Hyperlipidemia, 9. History of right upper extremity DVT on Lovenox Plan: Recommendation from vascular surgery on 07/01/2024 was to consider transfer to tertiary center for thrombectomy per interventional neurology versus care goal discussion. Primary medical team had discussed with patient's who had declined transfer on 07/01/2024. Carotid duplex shows mobile thrombus within carotid arteries along with right IJ vein DVT. Patient also has DVT in left upper extremity. Continue anticoagulation as long as patient can tolerate. Patient is a poor surgical candidate secondary to stage IV lung cancer as well as recent stroke. No plans surgical intervention at this time. Currently not stable for any surgical intervention, as well as a poor surgical candidate. Discussed with patient's and brother who were at the bedside plan moving forward including goals of care. All questions were answered and they seemingly understand no surgical intervention at this time. Await ongoing recommendations from neurology based on patient's overall long-term neurological status. Thank you for this consultation, we will continue to follow. The impression and plan of care has been dictated as directed. Dr. Mace I performed a history and examination of this patient, discussed the same with the dictator. I agree with the dictator's note ,documented as a scribe. Any ad ditional findings or plans will be noted.
--- NOTE | 2024-07-08 09:03 | P.PN ---
Subjective Progress Note Date: 07/08/24 Principal diagnosis: Multifocal cerebral infarcts in the setting of stage IV lung cancer as well as mobile carotid thrombi bilaterally. Mr. Armendariz is a 68-year-old -Prydeinig male with history of advanced lung cancer, deep venous thrombosis, diabetes, gastroesophageal reflux disease, hypertension, hyperlipidemia. He was admitted to [facility] on June 30 with altered mental status as well as slurred speech and left-sided weakness. He may have had a gaze to the left initially however EEG performed July 01 revealed only slowing without epileptiform discharges. He was intubated and placed initially on Keppra but this was discontinued after his negative EEG. On July 01 he was noted to be overbreathing the ventilator and a CT head from July 02 revealed multifocal embolic appearing infarcts in the right parietal, left occipital, bilateral frontal areas as well as left left basal ganglia and caudate. His CT angiogram in June 30 reveals a fibrofatty thrombus in the bilateral internal carotid artery with 90% stenosis of the left internal carotid artery and 75% stenosis on the right. Vascular surgery has been consulted and is considering carotid endarterectomy based on the patient's clinical course. He is currently anticoagulated on heparin drip as well as taking aspirin 81 mg daily. On exam July 04, 2024, the patient is sedated on propofol drip. However when this is weaned the patient is minimally arousable though he will not follow commands. He exhibits minimal withdrawal with his left upper and lower extremity and does not move the right upper and lower extremity. I do not detect a Babinski sign on the left foot and the right foot is equivocal. Nursing notes that he was moving spontaneously with his left arm and leg earlier this morning and he does exhibit some spontaneous movement but pinched on the left lower extremity. Pupils are pinpoint and unreactive and he does not blink to threat. I had a conversation with vascular surgeon Dr. Cecelia Mace in the evening of July 04, and though they had initially wished for the patient to be transferred to [place] for vascular intervention, it was decided between us that any procedure should wait on clinical improvement as he is at risk of reperfusion hemorrhage as well as embolus from acute procedures in light of his multifocal infarcts. Dr. Mace agreed with this, and may consider vascular intervention here at [facility] if the patient does clinically improve. On assessment July 05, the patient remains sedated on propofol, though he was noted to be potentially be following commands with his left arm per nursing last night. On my exam, when the propofol was weaned, the patient had minimally improved withdrawal with the left arm, and moderately improved withdrawal from the left leg. Right arm and leg were flaccid, and the patient was not following commands or looking at the examiner. Pupils were pinpoint and weakly reactive, I could not get him to engage with extraocular muscle movements. He is due to have a carotid ultrasound performed today to assess the degree of stenosis. This is considered to be likely a thrombus stenosis in the arteries bilaterally, so the risk of surgery would be increased or a procedure to be performed immediately. On assessment July 06, the patient's carotid ultrasound returned with evidence of bilateral internal carotid artery thrombus on the left greater than the right. These thrombi are mobile and he also has a right internal jugular vein occlusion. On chest x-ray his right lung is opacified which is likely a combination of his history of cancer as well as aspiration pneumonia. His white count appears low and the patient is afebrile. On exam with propofol wean, the patient will not open his eyes to command, but will wiggle his toes to command. This appears to be a significant difference from 2 days ago. He was noted to be wiggling his fingers to command by staff yesterday, but I could not detect this today. He has minimal withdrawal of his left arm, and right arm and right leg are both flaccid. He may have an upgoing toe on the left but reflexes are otherwise symmetric. He has not had his routine CT scan at this time. A routine CT scan was ordered for the patient, and vascular surgery continues to be on board for the possibility of open thrombectomy. We are awaiting clinical improvement at this time prior to that consideration. On evaluation July 07, the patient is off of sedation and is moving his head spontaneously. He will follow limited commands on the left side including wiggling his fingers and toes, but he has no movement on his right side. I cannot get him to focus his eyes on me or blink to threat. Plantar responses equivocal on the right and downgoing on the left and reflexes are symmetric. He had a routine CT of the head this morning showing again them areas of multiple infarction in the right parietal, left occipital, left putamen, left caudate, as well as left centrum semiovale and frontal lobe. None of these infarcts appear to show evidence of hemorrhage at this time. On evaluation July 08, the patient's Anjana was at his bedside, and I had a conversation with her about his overall condition. He appears to be making some minimal improvement as he is able to wiggle his fingers and toes to command, but as per my exam, he does not focus on the examiner or follow a moving object. He is able to state by wiggling his left toes that he knows his is present. I had an extended conversation with Anjana about his overall condition. His chest x-ray continues to show lack of improvement despite mult iple antibiotics, and at this point I believe the majority of his right lung issues may be due to to his stage IV lung cancer. He is conscious and responsive, and is able to answer questions by wiggling his toes. Anjana wishes for him to come off the ventilator and to be placed on a tracheostomy for long- term management. He was explained to her that his overall clinical prognosis is poor considering late stage lung cancer in addition to his multiple strokes; however, she wishes to proceed. I also asked the patient in a compassionate manner if he wished to continue to be maintained with a throat tube and feeding tube and intermediate placement for long-term management, considering that his stage IV lung cancer is terminal. The patient wiggle his left toes vociferously at the suggestion, which I take to mean that the patient wishes to continue to be supported with a tracheostomy and feeding tube. Assessment: Mr. Armendariz is a 68-year-old -Prydeinig male with history of advanced lung cancer as well as DVT for which he was taking Lovenox. He presents with evidence of multifocal embolic appearing cerebral infarcts which is developed likely since July [address] appeared relatively normal at that time. He is current on currently on heparin drip for anticoagulation but exhibits minimal responsiveness. Plan: 1. Patient's routine CT scan July 08 did not show any evidence of hemorrhage. I would recommend consideration of a repeat noncontrast CT scan on Thursday, July 11 or before that if the patient makes any clinical decline. 2. Vascular surgery at this time does not appear to be pursuing a possible thrombectomy, as his overall clinical status continues to be poor. I am in agreement with this. 3. Despite the patient's poor clinical status, both his and the patient (expressed by wiggling his toes vigorously to questioning) wish for him to sandra nue to be supported. ICU team will be in charge of when and how to convert the patient to tracheostomy and feeding tube and prepare him for intermediate on discharge. 4. Unfortunately, neurology services will not be available over this weekend July 09 and , but Dr. Nahun Mendoza will return and resume consult services starting July 11. Objective - Vital Signs Vital signs: Vital Signs Temp 97.7 F 07/08/24 08:00 Pulse 96 07/08/24 08:00 Resp 22 07/08/24 08:00 BP 91/66 07/08/24 08:00 Pulse Ox 100 07/08/24 08:00 FiO2 30 07/08/24 07:38 Intake & Output 07/07/24 07/08/24 07/08/24 18:59 06:59 18:59 Intake Total 0567.979 6470.674 276 Output Total 400 445 80 Balance 4904.589 4421.674 196 Weight 80.1 kg 82.2 kg Intake: IV 736 736 106 Piperacillin-Tazobactam 3 100 100 .375 gm In Sodium Chloride 0.9% 100 ml @ 25 mls/hr IVPB Q8H [facility] Rx#: [id number] Sodium Chloride 0.9% 1, 600 600 100 000 ml @ 50 mls/hr IV . Q20H [facility] Rx#:[id number] pressure bag 36 36 6 Intake, IV Titration 109.055 293.674 Amount Dexmedetomidine/0.9% NaCl 109.055 48.786 (Pmx) 400 mcg In Empty Bag 1 bag @ 0.2 MCG/KG/HR 3.945 mls/hr IV .Q24H [facility] Rx#:[id number] Heparin Sod,Pork in 0.45% 244.888 NaCl 25,000 unit In 0.45 % NaCl 1 250ml.bag @ 12 UNITS/KG/HR 7.932 mls/hr IV .Q24H [facility] Rx#: [id number] Tube Feeding 840 840 140 Other 80 110 30 Output: Urine 400 445 80 Other: Voiding Method Indwelling Catheter Indwelling Catheter ABP, PAP, CO, CI - Last Documented Arterial Blood Pressure 100/57 - Labs CBC & Chem 7: 07/08/24 04:06 07/08/24 04:06 Labs: Abnormal Lab Results - Last 24 Hours (Table) 07/07/24 07/07/24 07/08/24 Range/Units 11:47 12:45 04:06 RBC (4.30-5.90) m/uL Hgb (13.0-17.5) gm/dL Hct (39.0-53.0) % MCV (80.0-100.0) fL MCH (25.0-35.0) pg MCHC (31.0-37.0) g/dL RDW (11.5-15.5) % Lymphocytes # (1.0-4.8) k/uL APTT 57.2 H (22.0-30.0) sec ABG pH (7.35-7.45) ABG pCO2 (35-45) mmHg ABG O2 Saturation (94-97) % Hemoglobin (13.0-17.5) gm/dL Chloride 115 H (98-107) mmol/L Carbon Dioxide 20 L (22-30) mmol/L Creatinine 0.47 L (0.66-1.25) mg/dL Glucose 109 H (74-99) mg/dL POC Glucose (mg/dL) 113 H (70-110) mg/dL Calcium 8.0 L (8.4-10.2) mg/dL 07/08/24 07/08/24 07/08/24 Range/Units 04:06 04:06 05:45 RBC 3.40 L (4.30-5.90) m/uL Hgb 7.5 L (13.0-17.5) gm/dL Hct 25.3 L (39.0-53.0) % MCV 74.5 L (80.0-100.0) fL MCH 22.2 L (25.0-35.0) pg MCHC 29.8 L (31.0-37.0) g/dL RDW 17.2 H (11.5-15.5) % Lymphocytes # 0.9 L (1.0-4.8) k/uL APTT 42.1 H (22.0-30.0) sec ABG pH 7.47 H (7.35-7.45) ABG pCO2 28 L (35-45) mmHg ABG O2 Saturation 98.2 H (94-97) % Hemoglobin 7.7 L (13.0-17.5) gm/dL Chloride (98-107) mmol/L Carbon Dioxide (22-30) mmol/L Creatinine (0.66-1.25) mg/dL Glucose (74-99) mg/dL POC Glucose (mg/dL) (70-110) mg/dL Calcium (8.4-10.2) mg/dL Microbiology - Last 24 Hours (Table) 07/02/24 06:05 Blood Culture - Final Blood
[2024-07-08] MEDS: FUROSEMIDE 10 MG/ML 4 ML VIAL IV SCH (10:22)
[2024-07-08 10:55] LABS: Glucose,Whole Blood 92 mg/dL (70-110)
[2024-07-08 10:55] LABS: Glucose,Whole Blood 89 mg/dL (70-110)
[2024-07-08 12:06] LABS: Glucose,Whole Blood 87 mg/dL (70-110)
--- NOTE | 2024-07-08 13:43 | P.PN ---
Subjective Progress Note Date: 07/08/24 68-year-old man with stage IV lung CA on immunotherapy, DM, HTN, HLD, recent upper extremity DVT on Eliquis, GERD, who presented to the ED with left-sided weakness and altered mental status. In the ED he underwent extensive evaluation. BP 135/98, HR 105, RR 18, 99% on RA. Patient was intubated in the ER for airway protection. Initial CT brain was negative. CBC, Coag panel, CMP significant for Hg 9.9, Hct 33.6, MCV 75.7, Plt 777, Na 132, bicarb 20, BUN 7, Cr 0.63, glu 121, alk phos 130, alb 2.9. Lactic acid 3. Trop < 0.012. Ammonia 9. CTA head and neck showed fibrofatty thrombus within the bilateral proximal internal carotid arteries creating 75% stenosis on the right and 90% stenosis in the left. CXR showed large R pleural effusion. Patient was not a candidate for TNK per interventional neurology who was contacted by ED. Vascular surgery and Neurology was consulted. Patient was started on ASA, Plavix, Lipitor and heparin infusion. Vascular surgery recommended transfer to tertiary care facility for thrombectomy. Patient's declined transfer at that time given the patient multiple cormorbidities. Repeat CT of the brain revealed multiple bilateral embolic infarcts. Cardiology was consulted for KAREN and recommended against the study due to no history of arrhythmia and known bilateral carotid artery stenosis and thrombus. Patient did undergo bronchoscopy with BAL on 06/30 which was consistent with right lung collapse. BAL cultures grew Serratia and patient was started on Zosyn. Patient's ETT was exchanged on 07/04. 07/06 Patient was seen and examined. Off propofol following simple commands. Currently intubated. Patient with foul smelling diarrhea with rectal tube in place. Currently on heparin drip at 16 units/kg/hr. Antibiotics include Zosyn. CBC RBC 3.62, Hg 8, Hct 26.8, MCV 73.9, Plt 508. APTT 42.7. ABG pH 7.49, pCO2 27. CMP K 3.3, Cl 116, bicarb 19, BUN 8, Cr 0.48, Ca 7.8, alb 1.8. Mag 1.7. CXR done today complete opacification of the right hemithorax. 07/07 Patient was seen and examined. Off propofol following simple commands. Currently on Precedex at 0.3 mcg/kg/hr. Currently intubated. Patient with foul smelling diarrhea with rectal tube in place, C. diff is negative. Currently on heparin drip at 18 units/kg/hr. Antibiotics include Zosyn 3.75 g IV TID (D3) for treatment of Serratia BAL culture. CBC RBC 3.61, Hg 7.9, Hct 26.7, MCV 73.8, Plt 495. APTT 38. ABG pH 7.47, pCO2 28. CMP Cl 117, bicarb 19, Cr 0.5, glu 101, Ca 7.7, alb 1.8. Mag 1.7. Repeat brain CT shows bilateral infarcts with no hemorrhage or midline shift. CXR done today complete opacification of the right hemithorax. 07/08 Patient was seen and examined. Currently extubated. Precedex discontinued. Currently on heparin drip at 18 units/kg/hr. Antibiotics include Zosyn 3.75 g IV TID (D4) for treatment of Serratia BAL culture. CBC RBC 3.4, Hg 7.5, Hct 25.3, MCV 74.5. APTT 42.1. ABG pH 7.47, pCO2 28. BMP Cl 115, bicarb 20, Cr 0.47, glu 109, Ca 8. Mag 1.6. CXR done today complete opacification of the right hemithorax which is unchanged. Vitals Signs: BP 115/73, HR 121, RR 24, T 97.8F, 100% on 4L NC. General: Ill appearing. NAD Derm: Warm, dry Head: Atraumatic, normocephalic, symmetric Eyes: Pinpoint pupils, right-sided gaze preference, upward gaze preference, no lid lag, anicteric sclera, bilateral periorbital edema Mouth: No lip lesion, mucus membranes moist Cardiovascular: S1S2 reg, no murmur Lungs: Breath sounds only noted in left side Abdominal: Soft, nontender to palpation, no guarding, no appreciable organomegaly Ext: No gross muscle atrophy, right upper extremity edema, no contractures Neuro: Spontaneously moving left upper extremity and left lower extremity, follows simple commands, wiggles toes, very weakly squeezes fingers, no gag reflex, no cough with suctioning Psych: Non verbal Based on my assessment of this patient, this patient meets a high complexity level of care. Acute multifocal embolic ischemic strokes: ASA 81 mg PO QD. Lipitor 80 mg PO QHS. Continue Heparin drip. Monitor APTT. No plans for immediate surgical intervention per Vascular. No plans for KAREN per Cardiology. Repeat CT done 07/07 shows no hemorrhagic conversion. Neurology on board. Acute encephalopathy due to above Bilateral carotid artery thrombosis stenosis: Management as above. Acute hypoxic respiratory failure requiring intubation likely due to acute stroke and inability to protect airway and right lung collapse Severe leukocytosis with concerns of PNA: BAL cultures growing Serratia. BCx and UCx negative. Continue Zosyn 3.75 g IV TID (D5). Diarrhea: C. diff ruled out. Thrombocytosis: Likely due to iron def. anemia. Microcytic anemia: Hg 7.9. No signs of active bleeding. Transfuse if Hg < 7. CODE STATUS: FULL CODE DVT Prophylaxis: Heparin drip. GI Prophylaxis: Protonix 40 mg IV QD. Designated medical POA if patient is not able to make medical decisions for themselves: . I have reviewed the following inside sales consultant notes: Vascular. Neuro. I have reviewed the results of the following tests: CBC, BMP, Mag, APTT, ABG. I have ordered the following tests: I have discussed the care of this patient with the following independent historian: MONTRELL. I have independently interpreted the following test below: CXR I have discussed the management of this patient with the following physician: This patient has a high risk of morbidity due to the following reasons: Patient requires IV heparin which requires intensive monitoring for toxicity (coag panel) and bleeding. Objective - Vital Signs Vital signs: Vital Signs Temp 97.7 F 07/08/24 08:00 Pulse 96 07/08/24 08:00 Resp 22 07/08/24 08:00 BP 91/66 07/08/24 08:00 Pulse Ox 100 07/08/24 08:00 FiO2 30 07/08/24 07:38 Intake & Output 07/07/24 07/08/24 07/08/24 18:59 06:59 18:59 Intake Total 1041.410 3670.674 276 Output Total 400 445 80 Balance 2120.829 4669.674 196 Weight 80.1 kg 82.2 kg Intake: IV 736 736 106 Piperacillin-Tazobactam 3 100 100 .375 gm In Sodium Chloride 0.9% 100 ml @ 25 mls/hr IVPB Q8H [facility] Rx#: [id number] Sodium Chloride 0.9% 1, 600 600 100 000 ml @ 50 mls/hr IV . Q20H [facility] Rx#:[id number] pressure bag 36 36 6 Intake, IV Titration 109.055 293.674 Amount Dexmedetomidine/0.9% NaCl 109.055 48.786 (Pmx) 400 mcg In Empty Bag 1 bag @ 0.2 MCG/KG/HR 3.945 mls/hr IV .Q24H [facility] Rx#:[id number] Heparin Sod,Pork in 0.45% 244.888 NaCl 25,000 unit In 0.45 % NaCl 1 250ml.bag @ 12 UNITS/KG/HR 7.932 mls/hr IV .Q24H [facility] Rx#: [id number] Tube Feeding 840 840 140 Other 80 110 30 Output: Urine 400 445 80 Other: Voiding Method Indwelling Catheter Indwelling Catheter ABP, PAP, CO, CI - Last Documented Arterial Blood Pressure 100/57 - Labs CBC & Chem 7: 07/08/24 04:06 07/08/24 04:06 Labs: Abnormal Lab Results - Last 24 Hours (Table) 07/07/24 07/07/24 07/08/24 Range/Units 11:47 12:45 04:06 RBC (4.30-5.90) m/uL Hgb (13.0-17.5) gm/dL Hct (39.0-53.0) % MCV (80.0-100.0) fL MCH (25.0-35.0) pg MCHC (31.0-37.0) g/dL RDW (11.5-15.5) % Lymphocytes # (1.0-4.8) k/uL APTT 57.2 H (22.0-30.0) sec ABG pH (7.35-7.45) ABG pCO2 (35-45) mmHg ABG O2 Saturation (94-97) % Hemoglobin (13.0-17.5) gm/dL Chloride 115 H (98-107) mmol/L Carbon Dioxide 20 L (22-30) mmol/L Creatinine 0.47 L (0.66-1.25) mg/dL Glucose 109 H (74-99) mg/dL POC Glucose (mg/dL) 113 H (70-110) mg/dL Calcium 8.0 L (8.4-10.2) mg/dL 07/08/24 07/08/24 07/08/24 Range/Units 04:06 04:06 05:45 RBC 3.40 L (4.30-5.90) m/uL Hgb 7.5 L (13.0-17.5) gm/dL Hct 25.3 L (39.0-53.0) % MCV 74.5 L (80.0-100.0) fL MCH 22.2 L (25.0-35.0) pg MCHC 29.8 L (31.0-37.0) g/dL RDW 17.2 H (11.5-15.5) % Lymphocytes # 0.9 L (1.0-4.8) k/uL APTT 42.1 H (22.0-30.0) sec ABG pH 7.47 H (7.35-7.45) ABG pCO2 28 L (35-45) mmHg ABG O2 Saturation 98.2 H (94-97) % Hemoglobin 7.7 L (13.0-17.5) gm/dL Chloride (98-107) mmol/L Carbon Dioxide (22-30) mmol/L Creatinine (0.66-1.25) mg/dL Glucose (74-99) mg/dL POC Glucose (mg/dL) (70-110) mg/dL Calcium (8.4-10.2) mg/dL Microbiology - Last 24 Hours (Table) 07/02/24 06:05 Blood Culture - Final Blood
--- NOTE | 2024-07-08 13:45 | P.PN ---
Subjective Progress Note Date: 07/08/24 68-year-old black male with a history of multiple medical problems including advanced lung cancer, right pleural effusion, hyperlipidemia, hypertension, GERD, type 2 diabetes. The patient presented to the emergency department, at about 8:00 PM on June 30, with strokelike symptoms. He apparently was found to have slurred speech. He apparently became incoherent, and was apparently struggling to move the left side of his body. EMS was called and he was brought into the emergency department. The patient apparently was not able to protect his airway, and required intubation and mechanical ventilation. I did speak to Dr. Rodriguez in the emergency department. The patient is transferred to the intensive care unit, for further monitoring and management. The patient's drug screen was positive for opiates and cocaine. That may have had some effect on his neurologic issues. He is currently on volume assist-control, rate 20, tidal volume 500, FiO2 40%, PEEP of 5. Blood gases initially showed a pO2 that was greater than 420, pCO2 29, pH of 7.49. The patient is on propofol at 30 mcg/kg/min, saline at 120 cc an hour. When the patient came to the intensive care unit, we placed a right radial art line, a left subclavian triple-lumen catheter, and because his endotracheal tube was defective, we replaced the endotracheal tube with a #8 endotracheal tube. Current laboratory data includes a white count of 8.6, hemoglobin 7.8, hematocrit 26.6, platelet count of 508,000. Sodium 135, potassium 3.2, chlorides 108, CO2 21, BUN 5, and creatinine 0.58. Calcium 7.5, magnesium 1.5. Albumin 2. Urine is negative. Drug screen was positive for opiates, oxycodone, and cocaine. Viral studies were negative. Chest x-ray showed an opacified right hemithorax. Progress note dated July 02, 2024. 68-year-old black male seen today in room 255. His , flew up from [place] last night, and is at the bedside. The patient is currently on volume assist- control, rate 20, tidal volume 500, FiO2 40%, PEEP of 5. Blood gases show pO2 172, pCO2 25, pH of 7.48. The FiO2 was reduced down to 30%. The patient is on propofol at 20 mcg/kg/min, norepinephrine at 33 mcg/min, heparin via weight- based protocol, and saline at 120 cc an hour. The patient CT scan of the brain revealed a an evolving CVA, involving the right side, with left-sided weakness. The patient will have tube feeds started. In addition, chest x-ray reveals an opacified right hemithorax, and bronchoscopy will be done this morning. White count 15.2, hemoglobin 8.8, hematocrit 29.1, platelet count of 659,000. PT 1 2.8, INR 1.2. Sodium 137, potassium 3.6, chlorides 111, CO2 19, BUN 4, creatinine 0.47. Glucose was 164. Calcium 7.6. Magnesium 1.6. Chest x-ray reveals a right opacified hemithorax. CT scan of the reveals acute/subacute ischemia in the right parietotemporal area, and right frontal lobe. Progress note dated July 03, 2024. 68-year-old black male seen again in room 255. The patient has a history of lung cancer, advanced. The patient presented with neurologic findings, and was found to have a right sided CVA, and more recently, a another CT scan of the brain revealed additional damage to the left side of his brain. The patient remains on the ventilator. He is on volume assist-control, rate 20, tidal volume 500, 30% FiO2, PEEP of 5. Blood gases show pO2 117, pCO2 of 28, pH of 7.44. The patient is on norepinephrine at 33 mcg/min, propofol at 20 mcg/kg/min, 0.9 to 120 cc an hour, and heparin via weight-based protocol. The patient is getting vital high-protein at 10 cc an hour. Repeat brain CT showing extension, was done yesterday, July 02. He now has bilateral ischemic strokes. The patient only moves his left lower extremity. Because of his higher doses of norepinephrine, will add vasopressin. His procalcitonin level was within normal range. We will check a cortisol level for adrenal insufficiency. Chest x-ray shows an opacified right chest. Bronchoscopy yesterday revealed significant secretions and disease, in the right lower lobe. White count 30.7, hemoglobin 8.3, hematocrit 28.2, platelet count 611,000. PTT is 42.7. Sodium 137, potassium 3.5, chlorides 116, CO2 17, BUN 4, creatinine 0.40. Glucose 131. Cultures thus far negative. Procalcitonin level is normal. Chest x-ray is unchanged. 07/04/2024, the patient is being seen for a follow-up. This morning, the patient remains sedated on propofol which is running at 20 mcg/kg/min. Remains intubated on the mechanical ventilator. He is on assist-control mode of mechanical ventilation at rate of 20, tidal volume of 500, FiO2 of 30% with a PEEP of 5. The peak airway pressure is 19. Chest x-ray from today shows complete opacification of the right lung. ET tube is in a good location. Left lung is relatively clear and there is a small left-sided pleural effusion. The blood gases from today showed a pH of 7.43 with a pCO2 of 30 and pO2 of 109. The patient has limited respiratory secretions. There is considerable amount of air leak around the ET tube and a cuff is probably blown. The bronchoscopy was done and the cultures were essentially negative. The patient is covered empirically with IV Zosyn. He remains hypotensive and he remains on norepinephrine which is running at 0.25 mcg/kg/min. IV fluids are running at 125 cc an hour of normal saline. Patient remains on IV heparin. The net fluid balance over the past 24 hours and has been in the order of 2.7 L. Blood work from today shows a white cell count of 26, hemoglobin of 8 and a platelet count of 586. Sodium is at 136, potassium is at 3.6, chloride is 1 of 15 with a bicarb of 19. BUN is 5 with a creatinine of 0.44. LFTs are essentially within normal limits. Serum cortisol is 22.3. Blood culture is negative. Bronchoscopy and the bronchoalveolar lavage there is also negative. Enteral feeding is currently on hold due to high residuals. Prior to that, the patient was on vital high-protein at the rate of 10 cc an hour. 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 He has minimal withdrawal in his left upper extremity and lower extremities and does not move his right side. Negative for Babinski sign on the left and the right foot is equivocal. Pupils are pinpoint and unreactive and the patient remains on propofol. Neurology is on the case. Vascular surgery has been consulted regarding the bilateral carotid artery disease. No plans to do a KAREN at this point in time. 07/05/2024, the patient is being seen for a follow-up. Remains intubated on mechanical ventilator. Earlier this morning, the patient was taken off sedation and the brief neurologic examination that was done revealed that the patient was not able to move his right upper and right lower extremity. He was able to move his fingers and toes upon demand on the left side. Extremely weak cough. Unable to raise his head of the bed. Poor coughing and gagging reflex at this point in time. He does have a preferential gaze in his looking into the left upper corner and the pupils are equal and reactive to light around 2 to 3 mm in size. Repeat carotid Doppler was done and the patient was found to have bilateral thrombus visualized in the bilateral internal carotid arteries that appear acute in nature and moving during real-time examination. It seems to be the clots are larger in the left internal carotid artery. There is also occlus baljinder right internal jugular vein DVT. On examination, the patient was also noted to have swelling in his left upper extremity. Ultrasound Doppler of the left upper extremity revealed a positive DVT in the left distal subclavian and axillary veins. The patient remains on IV heparin. The patient remains on mechanical ventilator. This morning, he is on assist-control mode with rate of 20, tidal volume of 500, FiO2 of 30% with a PEEP of 5. The blood gas showed a pH of 7.46 with a pCO2 of 28 and pO2 119. Fluid balance is +1 L over the past 24 hours. The patient was taken off pressors as of yesterday morning. He remains on normal saline which is running at 120 cc an hour and the patient is also on vital high-protein for enteral feeding at rate of 30 cc an hour. Chest x-ray from today shows volume loss in addition to complete opacification of the right lung. Left lung remains essentially clear. Tube is in a good location. Blood work from today shows a white cell count of 14 with a hemoglobin of 8.3 and a platelet count of 533. The PTT is therapeutic. BUN is 6 with a creatinine of 0.4 and sodium is at 138 and a bicarb deficit 18. LFTs are essentially within normal limits. The bronchoscopy endobronchial lavage that was done earlier yielded Serratia marcescens and the patient remains on IV Zosyn. On 07/06/2024, the patient remains intubated on the mechanical ventilator. Earlier this morning, the patient was on propofol that was running at 25 mcg/kg/min. Subsequently, the propofol was discontinued at around 7 AM. The patient is arousable. He is following simple commands. Extremely weak. Unable to raise his head. Unable to cough. He is moving his left upper and left lower extremity. 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 There is flaccid paralysis on the right side. Meanwhile, the patient is having increased respiratory secretions. The patient is currently on mechanical ventilator assist-control mode with rate of 20, tidal volume of 500, FiO2 30% with a PEEP of 5. The chest x-ray shows complete opacification of the right lung, patchy infiltration in the left infrahilar and left lower lobe area is seen in the patient's sputum sample was positive for Serratia marcescens. The patient remains on broad-spectrum antibiotics and the patient remains on IV Zosyn. Still his blood gases show a pH of 7.49 with a pCO2 of 27 and pO2 112. Normal saline was running at the rate of 40 cc an hour. The patient is currentl y off norepinephrine. The patient remains on IV heparin. The patient is on vital high-protein which is running at a rate of 50 cc an hour for enteral feeding and nutritional support. WBC count of 10.5 with a hemoglobin of 8 and a platelet count of 508. The sodium is at 139, potassium is at 3.3, bicarb is at 19, BUN is at 8 with a creatinine of 0.4. He was having some liquidy stool and stool was checked for C. difficile and it came back negative. On 07/07/2024, patient's condition essentially unchanged. Patient is currently on low-dose Precedex at 0.3 mcg/kg/h. More sedated this morning. Was unable to follow any commands. Will gradually wean off the Precedex and reevaluate his mentation. A follow-up CAT scan of the brain was done today and the patient was found to have no evidence of any intracranial bleed. Nevertheless, there was multiple infarcts and the patient had evolving acute/subacute infarct involving the left head of the caudate nucleus and left carlos radiata extending inferiorly into the posterior basal ganglia. In addition, there was acute infarct in the inferior right parietal region extending to the posterior superior temporal lobe. There was also persistent subacute infarct hide posterior bilateral frontal lobes and there is also background mild to moderate continuation and periventricular white matter changes. There is also possibly evolution of an infarct in the right cerebellar region. The patient remains on IV heparin. Hemodynamically stable. Remains on the mechanical ventilator assist-control mode with rate of 20, tidal volume of 500, FiO2 30% with a PEEP of 5. Blood gas shows a pH of 7.47 with a pCO2 of 23 and pO2 116. Not a candidate for extubation due to his significant neurologic impairment and poor ability to maintain his airway patency and poor coughing. The patient remains on normal saline at rate of 50 cc an hour. The patient is on vital high-protein at rate of 70. He was having diarrhea and stool for C. difficile was negative. WBC count is at 9.9 with a hemoglobin 7.9 and a platelet count of 495. BUN is 11 with a creatinine of 0.5. Sodium levels at 138 and a potassium level is at 3.7. Chloride is 117. Otherwise, no other significant events over the past 24 hours. On 07/08/2024, the patient is on Precedex running at 0.4 mcg/kg/h. Arousable, following simple commands, motor function left upper and left lower extremity is improved. The patient is on normal citrate of 50 cc an hour. The patient is on assist-control mode of mechanical ventilation at rate of 20, tidal volume of 500, FiO2 30% with a PEEP of 5. Remains on IV Zosyn regarding Serratia marcescens in his lungs and the patient is stable left perihilar/infrahilar and left lower lobe pulmonary filtrate. Right lung remains completely opacified. The patient is known to have stage IV pulm adenocarcinoma. The blood gas from today showed a pH of 7.47 with a pCO2 28 and a pO2 of 100. Fluid balance is +2.8 L over the past 24 hours and the patient is on vital high-protein at rate of 70 cc an hour. Diarrhea has subsided. The patient's white cell count of 9.6 with a hemoglobin of 7.5 and a platelet count of 447. The BUN is 16 with a creatinine of 0.47 and a sodium levels at 138 and a potassium level 3.7. I had a lengthy discussion with the . The is not interested in end-of-life care. The patient's is interested in ongoing respiratory care and tracheostomy if needed. I gave the option of extubation and evaluating the patient's respiratory status. Will reintubate if the patient fails extubation and we will going to consider tracheostomy at that point in time. The was agreeable to that. Based on all this, I am going to wean the patient off Precedex and extubate the patient monitoring very closely here in the intensive care unit. He was also started on Lasix 40 mg IV every 12 hours and the patient was noted to be in a positive fluid balance. Objective - Vital Signs Vital signs: Vital Signs Temp 97.7 F 07/08/24 08:00 Pulse 96 07/08/24 08:00 Resp 22 07/08/24 08:00 BP 91/66 07/08/24 08:00 Pulse Ox 100 07/08/24 08:00 FiO2 30 07/08/24 07:38 Intake & Output 07/07/24 07/08/24 07/08/24 18:59 06:59 18:59 Intake Total 0507.885 4338.674 276 Output Total 400 445 80 Balance 3788.327 8584.674 196 Weight 80.1 kg 82.2 kg Intake: IV 736 736 106 Piperacillin-Tazobactam 3 100 100 .375 gm In Sodium Chloride 0.9% 100 ml @ 25 mls/hr IVPB Q8H NIKITA Rx#: [id number] Sodium Chloride 0.9% 1, 600 600 100 000 ml @ 50 mls/hr IV . Q20H NIKITA Rx#:[id number] pressure bag 36 36 6 Intake, IV Titration 109.055 293.674 Amount Dexmedetomidine/0.9% NaCl 109.055 48.786 (Pmx) 400 mcg In Empty Bag 1 bag @ 0.2 MCG/KG/HR 3.945 mls/hr IV .Q24H NIKITA Rx#:[id number] Heparin Sod,Pork in 0.45% 244.888 NaCl 25,000 unit In 0.45 % NaCl 1 250ml.bag @ 12 UNITS/KG/HR 7.932 mls/hr IV .Q24H NIKITA Rx#: [id number] Tube Feeding 840 840 140 Other 80 110 30 Output: Urine 400 445 80 Other: Voiding Method Indwelling Catheter Indwelling Catheter ABP, PAP, CO, CI - Last Documented Arterial Blood Pressure 100/57 - Exam No acute distress, sedated, initially seen in the emergency department, and then in the intensive care unit, currently on Precedex which is running at 0. 4 mcg/kg/h. HEENT examination is grossly unremarkable. Patient has an orally placed endotracheal tube. Neck supple. Full range of motion. No adenopathy thyromegaly or neck vein distention. Cardiovascular examination reveals regular rhythm rate. S1-S2 normal. No S3 or S4. No discernible murmur noted. Heart sounds are distant. Lungs reveal mild scattered rhonchi. No wheezes or crackles. Breath sounds are diminished on the right side. Abdomen soft without bowel sounds. Extremities are intact. No cyanosis clubbing or edema. The patient does move his left lower extremity from time to time. Skin is without rash or lesion. Neurologic examination cannot be adequately assessed at this time. Pupils are pinpoint, sluggishly reactive to light. The patient has flaccid paralysis in the right upper extremity. Minimal movement and has left side as mentioned. Babinski is negative on the left and equivocal on the right. Motor and sensory functions cannot be accurately determined. No facial asymmetry. Weak cough and a gag. - Labs CBC & Chem 7: 07/08/24 04:06 07/08/24 04:06 Labs: Abnormal Lab Results - Last 24 Hours (Table) 07/07/24 07/07/24 07/08/24 Range/Units 11:47 12:45 04:06 RBC (4.30-5.90) m/uL Hgb (13.0-17.5) gm/dL Hct (39.0-53.0) % MCV (80.0-100.0) fL MCH (25.0-35.0) pg MCHC (31.0-37.0) g/dL RDW (11.5-15.5) % Lymphocytes # (1.0-4.8) k/uL APTT 57.2 H (22.0-30.0) sec ABG pH (7.35-7.45) ABG pCO2 (35-45) mmHg ABG O2 Saturation (94-97) % Hemoglobin (13.0-17.5) gm/dL Chloride 115 H (98-107) mmol/L Carbon Dioxide 20 L (22-30) mmol/L Creatinine 0.47 L (0.66-1.25) mg/dL Glucose 109 H (74-99) mg/dL POC Glucose (mg/dL) 113 H (70-110) mg/dL Calcium 8.0 L (8.4-10.2) mg/dL 07/08/24 07/08/24 07/08/24 Range/Units 04:06 04:06 05:45 RBC 3.40 L (4.30-5.90) m/uL Hgb 7.5 L (13.0-17.5) gm/dL Hct 25.3 L (39.0-53.0) % MCV 74.5 L (80.0-100.0) fL MCH 22.2 L (25.0-35.0) pg MCHC 29.8 L (31.0-37.0) g/dL RDW 17.2 H (11.5-15.5) % Lymphocytes # 0.9 L (1.0-4.8) k/uL APTT 42.1 H (22.0-30.0) sec ABG pH 7.47 H (7.35-7.45) ABG pCO2 28 L (35-45) mmHg ABG O2 Saturation 98.2 H (94-97) % Hemoglobin 7.7 L (13.0-17.5) gm/dL Chloride (98-107) mmol/L Carbon Dioxide (22-30) mmol/L Creatinine (0.66-1.25) mg/dL Glucose (74-99) mg/dL POC Glucose (mg/dL) (70-110) mg/dL Calcium (8.4-10.2) mg/dL Microbiology - Last 24 Hours (Table) 07/02/24 06:05 Blood Culture - Final Blood Assessment and Plan Plan: Acute respiratory failure, requiring intubation/mechanical ventilation, seco ndary to poor neurologic status secondary to CVA, and inability to protect airway, 06/30/2024 and the patient remains intubated on the mechanical ventilator. The patient has complete opacified right lung which is a combination of chronic pleural effusion and trapped lung with a right lung/hilar mass causing obstruction of the right upper lobe and the right lower lobe bronchi. Chest x-ray is showing left infrahilar and left lower lobe patchy infiltration and the patient sputum sample is positive for Serratia and the patient is currently on IV Zosyn. No significant respiratory secretions on t danny's evaluations. Chest x-ray and blood gas from today were noted. No major interval change in his respiratory status over the past 24 hours. Right parietal/temporal acute/subacute ischemic CVA, with evolving bilateral ischemic CVAs. Most recent CAT scan of the brain on 07/02/2024 shows evolving multifocal acute/subacute CVA and the patient was found to have multiple scattered hypoattenuating areas throughout the brain with miranda/white matter loss. There is also evolution of the stroke compared to the earlier CAT scan on 07/01/2024 including bilateral frontal lobes and left basal ganglia, left caudate nucleus, right temporal lobe and left occipital parietal region and right caudate nucleus among other areas. CT of the brain showed no significant intracranial vascular abnormality. There is bilateral carotid artery disease involving the proximal internal carotid artery creating 75% stenosis on the right and 90% stenosis on the left. Repeat ultrasound with Doppler shows acute thrombus involving the anterior carotid arteries bilaterally . the patient was also found to have clot movement during real-time examination. Findings were worse on the left.and the patient currently is on IV heparin. Neurologically, unchanged and follow-up CAT scan of the brain was done on 07/07/2024 showed no evidence of any bleeding and there is extensive bilateral acute/subacute stroke in evolution. There is significant neurologic impairment. It was noted that the patient's coughing reflex is improved over the past 24 hours. Based on that, the patient will be given a trial of extubation upon family's wishes. Right side remains flaccid. stage IV lung cancer, the patient is known to have pulm adenocarcinoma the patient has been receiving Tabrecta on outpatient basis and his treatment was essentially to [facility]. He is known to have chronic volume loss and a chronic right-sided pleural effusion. The mass in his right upper lobe/hilum was causing right upper lobe bronchus and the right lower lobe bronchus and the patient has developed chronic right-sided pleural effusion/atelectasis which has remained unchanged on serial x-rays. Chronic persistent right-sided pleural effusion, with the possibility of postobstructive pneumonia involving the right and the left lower lobe pneumonia and the patient is currently on IV Zosyn. Right IJ DVT Left axillary and subclavian vein DVT and the patient has a subclavian triple- lumen catheter in place on the left Hypertension Hyperlipidemia Diabetes mellitus type 2 Polysubstance abuse including cocaine Acute leukocytosis Anemia of chronic disease Acid reflux Plan Discontinue Precedex Continue monitoring the mental status, the patient is awake and has some improved motor function left upper and left lower extremity. Cough is present although weak. Repeat CAT scan of the brain was noted and there is no evidence of any bleed since 07/07/2024 Discussed the case with vascular surgery and not a surgical candidate regarding the carotid artery disease I will continue the anticoagulation with IV heparin Not a candidate for any surgical intervention specially with his terminal stage IV non-small cell lung cancer and significant neurologic impairment following his bilateral CVAs. Continue IV Zosyn Patient currently off pressors Enteral feeding for nutritional support Continue IV Protonix Continue aspirin Will start the patient on IV Lasix After having a lengthy discussion with the family and the , opted for long-term respiratory support and care and tracheostomy if needed. Based on all this, I decided to give the patient a trial of extubation with close monitoring. If the patient fails extubation, he will be reintubated and subsequently will proceed with a tracheostomy tube insertion. Based on above-mentioned comorbidities, the prognosis extremely poor. This evaluation was done more than 30 minutes
[2024-07-08 16:06] LABS: Glucose,Whole Blood 86 mg/dL (70-110)
[2024-07-09] MEDS ORDERED: IPRATROPIUM-ALBUTEROL 3 ML NEB INHALATION PRN (03:10)
[2024-07-09 04:00] LABS: Glucose,Whole Blood 76 mg/dL (70-110)
[2024-07-09 04:09] LABS: Anisocytosis Slight; Basophils % (A) 0 %; Eosinophils % (A) 0 %; HCT 27.6 % (39.0-53.0); HGB 8.4 gm/dL (13.0-17.5); Hypochromasia Marked; Lymphocytes # (A) 0.8 k/uL (1.0-4.8); Lymphocytes % (A) 5 %; MCH 22.3 pg (25.0-35.0); MCHC 30.3 g/dL (31.0-37.0); MCV 73.5 fL (80.0-100.0); Mean Platelet Volume 8.2; Microcytosis Moderate; Monocytes # (A) 1.1 k/uL (0-1.0); Monocytes % (A) 7 %; Neutrophils % (A) 87 %; Platelet Count 619 k/uL (150-450); Poikilocytosis Slight; RBC 3.76 m/uL (4.30-5.90); RDW 17.2 % (11.5-15.5); WBC 16.1 k/uL (3.8-10.6)
[2024-07-09 04:19] LABS: African American GFR (CKD) >90 (>60 ml/min/1.73 sqM); Anion Gap 2 mmol/L; Blood Urea Nitrogen 14 mg/dL (9-20); Calcium 8.3 mg/dL (8.4-10.2); Carbon Dioxide 23 mmol/L (22-30); Chloride 115 mmol/L (98-107); Glucose 69 mg/dL (74-99); Magnesium 1.6 mg/dL (1.6-2.3); Non-African American GFR(CKD) >90 (>60 ml/min/1.73 sqM); Potassium 3.2 mmol/L (3.5-5.1); Sodium 140 mmol/L (137-145)
[2024-07-09] MEDS: DEXTROSE 50% SYRINGE 50 ML IVP PRN (05:17)
[2024-07-09] MEDS: MAGNESIUM SULFATE-D5W PMX 1 GM in DEXTROSE/WATER 1 100ML.BAG IVPB SCH (06:00)
[2024-07-09] MEDS: POTASSIUM CHLORIDE 20 MEQ in WATER FOR INJECTION 1 100ML.BAG IVPB SCH (06:00)
[2024-07-09 06:31] LABS: Glucose,Whole Blood 113 mg/dL (70-110)
--- NOTE | 2024-07-09 07:46 | XR ---
EXAMINATION TYPE: XR chest 1V portable DATE OF EXAM: 07/09/2024 5:42 AM COMPARISON: Chest radiographs from 07/09/2024. CLINICAL INDICATION: Male, 68 years old with history of NGT placement; TECHNIQUE: XR chest 1V portable Frontal view of the chest. FINDINGS: Lungs/Pleura: There is no evidence of pleural effusion, focal consolidation, or pneumothorax. Pulmonary vascularity: Unremarkable. Heart/mediastinum: Cardiomediastinal silhouette is unremarkable. Musculoskeletal: No acute osseous pathology. Other findings: None Lines/Tubes: Nasogastric tube with its distal tip and side-port projecting under the diaphragm. IMPRESSION: 1. Complete opacification of the right hemithorax unchanged from prior. 2. Nasogastric tube in appropriate position. [facility], , 07/09/2024 7:43 AM
--- NOTE | 2024-07-09 08:02 | XR ---
EXAMINATION TYPE: XR chest 1V portable DATE OF EXAM: 07/09/2024 4:27 AM COMPARISON: Chest radiographs CLINICAL INDICATION: Male, 68 years old with history of post extubation; [facility] TECHNIQUE: XR chest 1V portable Frontal view of the chest. FINDINGS: Lungs/Pleura: Complete opacification of the right lung. Left midlung airspace opacities, There is no evidence of left pleural effusion, focal consolidation, or pneumothorax. Pulmonary vascularity: Unremarkable. Heart/mediastinum: Cardiomediastinal silhouette is unremarkable. Musculoskeletal: No acute osseous pathology. Other findings: None Lines/Tubes: Interval removal of the endotracheal tube. Interval removal of the enteric tube, IMPRESSION: 1. Complete opacification of the right lung, similar to prior. 2. Left midlung airspace opacity may be developing correlate for developing pneumonia. Attention fol low-up [facility], , 07/09/2024 7:59 AM
[2024-07-09] MEDS: IPRATROPIUM-ALBUTEROL 3 ML NEB INHALATION SCH (08:09)
[2024-07-09] MEDS: ENOXAPARIN 80 MG/0.8 ML SYRINGE SQ SCH (10:18)
[2024-07-09] MEDS: METOPROLOL TARTRATE 12.5 MG TAB PO SCH (10:27)
[2024-07-09 11:21] LABS: Glucose,Whole Blood 80 mg/dL (70-110)
--- NOTE | 2024-07-09 12:07 | P.PN ---
Subjective Progress Note Date: 07/09/24 68-year-old man with stage IV lung CA on immunotherapy, DM, HTN, HLD, recent upper extremity DVT on Eliquis, GERD, who presented to the ED with left-sided weakness and altered mental status. In the ED he underwent extensive evaluation. BP 135/98, HR 105, RR 18, 99% on RA. Patient was intubated in the ER for airway protection. Initial CT brain was negative. CBC, Coag panel, CMP significant for Hg 9.9, Hct 33.6, MCV 75.7, Plt 777, Na 132, bicarb 20, BUN 7, Cr 0.63, glu 121, alk phos 130, alb 2.9. Lactic acid 3. Trop < 0.012. Ammonia 9. CTA head and neck showed fibrofatty thrombus within the bilateral proximal internal carotid arteries creating 75% stenosis on the right and 90% stenosis in the left. CXR showed large R pleural effusion. Patient was not a candidate for TNK per interventional neurology who was contacted by ED. Vascular surgery and Neurology was consulted. Patient was started on ASA, Plavix, Lipitor and heparin infusion. Vascular surgery recommended transfer to tertiary care facility for thrombectomy. Patient's declined transfer at that time given the patient multiple cormorbidities. Repeat CT of the brain revealed multiple bilateral embolic infarcts. Cardiology was consulted for KAREN and recommended against the study due to no history of arrhythmia and known bilateral carotid artery stenosis and thrombus. Patient did undergo bronchoscopy with BAL on 06/30 which was consistent with right lung collapse. BAL cultures grew Serratia and patient was started on Zosyn. Patient's ETT was exchanged on 07/04. 07/06 Patient was seen and examined. Off propofol following simple commands. Currently intubated. Patient with foul smelling diarrhea with rectal tube in place. Currently on heparin drip at 16 units/kg/hr. Antibiotics include Zosyn. CBC RBC 3.62, Hg 8, Hct 26.8, MCV 73.9, Plt 508. APTT 42.7. ABG pH 7.49, pCO2 27. CMP K 3.3, Cl 116, bicarb 19, BUN 8, Cr 0.48, Ca 7.8, alb 1.8. Mag 1.7. CXR done today complete opacification of the right hemithorax. 07/07 Patient was seen and examined. Off propofol following simple commands. Currently on Precedex at 0.3 mcg/kg/hr. Currently intubated. Patient with foul smelling diarrhea with rectal tube in place, C. diff is negative. Currently on heparin drip at 18 units/kg/hr. Antibiotics include Zosyn 3.75 g IV TID (D3) for treatment of Serratia BAL culture. CBC RBC 3.61, Hg 7.9, Hct 26.7, MCV 73.8, Plt 495. APTT 38. ABG pH 7.47, pCO2 28. CMP Cl 117, bicarb 19, Cr 0.5, glu 101, Ca 7.7, alb 1.8. Mag 1.7. Repeat brain CT shows bilateral infarcts with no hemorrhage or midline shift. CXR done today complete opacification of the right hemithorax. 07/08 Patient was seen and examined. Currently extubated. Precedex discontinued. Currently on heparin drip at 18 units/kg/hr. Antibiotics include Zosyn 3.75 g IV TID (D4) for treatment of Serratia BAL culture. CBC RBC 3.4, Hg 7.5, Hct 25.3, MCV 74.5. APTT 42.1. ABG pH 7.47, pCO2 28. BMP Cl 115, bicarb 20, Cr 0.47, glu 109, Ca 8. Mag 1.6. CXR done today complete opacification of the right hemithorax which is unchanged. 07/09 Patient was seen and examined. 100% on RA. Heparin drip switched to Lovenox 80 mg SQ BID by Pulmonary. Antibiotics include Zosyn 3.75 g IV TID (D5) for treatment of Serratia BAL culture. CBC WBC 16.1, RBC 3.76, Hg 8.4, Hct 27.6, MCV 73.5, Plt 619. APTT 39.2. BMP K 3.2, Cl 115, Cr 0.5, glu 69, Ca 8.3. Mag 1.6. CXR done today complete opacification of the right hemithorax with possible new right lung consolidation. Vitals Signs: BP 131/88, HR 117, RR 31, T 99F, 100% on 3L NC. General: Ill appearing. NAD Derm: Warm, dry Head: Atraumatic, normocephalic, symmetric Eyes: Pinpoint pupils, right-sided gaze preference, upward gaze preference, no lid lag, anicteric sclera, bilateral periorbital edema Mouth: No lip lesion, mucus membranes moist Cardiovascular: S1S2 reg, no murmur Lungs: Breath sounds only noted in left side Abdominal: Soft, nontender to palpation, no guarding, no appreciable organomegaly Ext: No gross muscle atrophy, right upper extremity edema, no contractures Neuro: Spontaneously moving left upper extremity and left lower extremity, follows simple commands, wiggles toes, very weakly squeezes fingers, no gag reflex, no cough with suctioning Psych: Non verbal Based on my assessment of this patient, this patient meets a high complexity level of care. Acute multifocal embolic ischemic strokes: ASA 81 mg PO QD. Lipitor 80 mg PO QHS. Lovenox 80 mg SUBCUT BID. No plans for immediate surgical intervention per Vascular. No plans for KAREN per Cardiology. Repeat CT done 07/07 shows no hemorrhagic conversion. Will need swallow eval and likely PEG on Thursday. Neurology on board. Acute encephalopathy due to above Bilateral carotid artery thrombosis stenosis: Management as above. Acute hypoxic respiratory failure requiring intubation likely due to acute stroke and inability to protect airway and right lung collapse Severe leukocytosis with concerns of PNA: BAL cultures growing Serratia. BCx and UCx negative. Continue Zosyn 3.75 g IV TID (D5). Diarrhea: C. diff ruled out. Thrombocytosis: Likely due to iron def. anemia. Microcytic anemia: Hg 8.4. No signs of active bleeding. Transfuse if Hg < 7. CODE STATUS: FULL CODE DVT Prophylaxis: Lovenox SQ GI Prophylaxis: Protonix 40 mg IV QD. Designated medical POA if patient is not able to make medical decisions for themselves: . I have reviewed the following product safety consultant notes: Pulmonary. Neuro. I have reviewed the results of the following tests: CBC, BMP, Mag, APTT. I have ordered the following tests: I have discussed the care of this patient with the following independent historian: I have independently interpreted the following test below: CXR I have discussed the management of this patient with the following physician: Objective - Vital Signs Vital signs: Vital Signs Temp 99 F 07/09/24 08:00 Pulse 114 H 07/09/24 08:20 Resp 31 H 07/09/24 08:00 BP 131/88 07/09/24 08:00 Pulse Ox 99 07/09/24 08:11 FiO2 3 07/09/24 04:00 Intake & Output 07/08/24 07/09/24 07/09/24 18:59 06:59 18:59 Intake Total 7520.314 6060 153 Output Total 3365 2870 45 Balance -2237.075 -1704 108 Weight 78 kg Intake: IV 876 916 153 Magnesium Sulfate-D5w Pmx 100 1 gm In Dextrose/Water 1 100ml.bag @ 100 mls/hr IVPB ONCE ONE Rx#: [id number] Piperacillin-Tazobactam 3 100 100 .375 gm In Sodium Chloride 0.9% 100 ml @ 25 mls/hr IVPB Q8H [facility] Rx#: [id number] Potassium Chloride 20 meq 100 In Water For Injection 1 100ml.bag @ 50 mls/hr IVPB Q2H [facility] Rx#: [id number] Sodium Chloride 0.9% 1, 640 780 50 000 ml @ 50 mls/hr IV . Q20H [facility] Rx#:[id number] pressure bag 36 36 3 Intake, IV Titration 81.925 250 Amount Dexmedetomidine/0.9% NaCl 81.925 (Pmx) 400 mcg In Empty Bag 1 bag @ 0.2 MCG/KG/HR 3.945 mls/hr IV .Q24H [facility] Rx#:[id number] Heparin Sod,Pork in 0.45% 250 NaCl 25,000 unit In 0.45 % NaCl 1 250ml.bag @ 12 UNITS/KG/HR 7.932 mls/hr IV .Q24H [facility] Rx#: [id number] Tube Feeding 140 Other 30 Output: Urine 2840 2870 45 Stool 525 Other: Voiding Method Indwelling Catheter ABP, PAP, CO, CI - Last Documented Arterial Blood Pressure 116/77 - Labs CBC & Chem 7: 07/09/24 04:00 07/09/24 04:00 Labs: Abnormal Lab Results - Last 24 Hours (Table) 07/09/24 07/09/24 07/09/24 Range/Units 04:00 04:00 04:00 WBC 16.1 H (3.8-10.6) k/uL RBC 3.76 L (4.30-5.90) m/uL Hgb 8.4 L (13.0-17.5) gm/dL Hct 27.6 L (39.0-53.0) % MCV 73.5 L (80.0-100.0) fL MCH 22.3 L (25.0-35.0) pg MCHC 30.3 L (31.0-37.0) g/dL RDW 17.2 H (11.5-15.5) % Plt Count 619 H (150-450) k/uL Neutrophils # 14.0 H (1.3-7.7) k/uL Lymphocytes # 0.8 L (1.0-4.8) k/uL Monocytes # 1.1 H (0-1.0) k/uL APTT 39.2 H (22.0-30.0) sec Potassium 3.2 L (3.5-5.1) mmol/L Chloride 115 H (98-107) mmol/L Creatinine 0.50 L (0.66-1.25) mg/dL Glucose 69 L (74-99) mg/dL POC Glucose (mg/dL) (70-110) mg/dL Calcium 8.3 L (8.4-10.2) mg/dL 07/09/24 Range/Units 06:19 WBC (3.8-10.6) k/uL RBC (4.30-5.90) m/uL Hgb (13.0-17.5) gm/dL Hct (39.0-53.0) % MCV (80.0-100.0) fL MCH (25.0-35.0) pg MCHC (31.0-37.0) g/dL RDW (11.5-15.5) % Plt Count (150-450) k/uL Neutrophils # (1.3-7.7) k/uL Lymphocytes # (1.0-4.8) k/uL Monocytes # (0-1.0) k/uL APTT (22.0-30.0) sec Potassium (3.5-5.1) mmol/L Chloride (98-107) mmol/L Creatinine (0.66-1.25) mg/dL Glucose (74-99) mg/dL POC Glucose (mg/dL) 113 H (70-110) mg/dL Calcium (8.4-10.2) mg/dL
--- NOTE | 2024-07-09 12:14 | P.PN ---
Subjective Progress Note Date: 07/09/24 68-year-old black male with a history of multiple medical problems including advanced lung cancer, right pleural effusion, hyperlipidemia, hypertension, GERD, type 2 diabetes. The patient presented to the emergency department, at about 8:00 PM on June 30, with strokelike symptoms. He apparently was found to have slurred speech. He apparently became incoherent, and was apparently struggling to move the left side of his body. EMS was called and he was brought into the emergency department. The patient apparently was not able to protect his airway, and required intubation and mechanical ventilation. I did speak to Dr. Rodriguez in the emergency department. The patient is transferred to the intensive care unit, for further monitoring and management. The patient's drug screen was positive for opiates and cocaine. That may have had some effect on his neurologic issues. He is currently on volume assist-control, rate 20, tidal volume 500, FiO2 40%, PEEP of 5. Blood gases initially showed a pO2 that was greater than 420, pCO2 29, pH of 7.49. The patient is on propofol at 30 mcg/kg/min, saline at 120 cc an hour. When the patient came to the intensive care unit, we placed a right radial art line, a left subclavian triple-lumen catheter, and because his endotracheal tube was defective, we replaced the endotracheal tube with a #8 endotracheal tube. Current laboratory data includes a white count of 8.6, hemoglobin 7.8, hematocrit 26.6, platelet count of 508,000. Sodium 135, potassium 3.2, chlorides 108, CO2 21, BUN 5, and creatinine 0.58. Calcium 7.5, magnesium 1.5. Albumin 2. Urine is negative. Drug screen was positive for opiates, oxycodone, and cocaine. Viral studies were negative. Chest x-ray showed an opacified right hemithorax. Progress note dated July 02, 2024. 68-year-old black male seen today in room 255. His , flew up from [place] last night, and is at the bedside. The patient is currently on volume assist- control, rate 20, tidal volume 500, FiO2 40%, PEEP of 5. Blood gases show pO2 172, pCO2 25, pH of 7.48. The FiO2 was reduced down to 30%. The patient is on propofol at 20 mcg/kg/min, norepinephrine at 33 mcg/min, heparin via weight- based protocol, and saline at 120 cc an hour. The patient CT scan of the brain revealed a an evolving CVA, involving the right side, with left-sided weakness. The patient will have tube feeds started. In addition, chest x-ray reveals an opacified right hemithorax, and bronchoscopy will be done this morning. White count 15.2, hemoglobin 8.8, hematocrit 29.1, platelet count of 659,000. PT 1 2.8, INR 1.2. Sodium 137, potassium 3.6, chlorides 111, CO2 19, BUN 4, creatinine 0.47. Glucose was 164. Calcium 7.6. Magnesium 1.6. Chest x-ray reveals a right opacified hemithorax. CT scan of the reveals acute/subacute ischemia in the right parietotemporal area, and right frontal lobe. Progress note dated July 03, 2024. 68-year-old black male seen again in room 255. The patient has a history of lung cancer, advanced. The patient presented with neurologic findings, and was found to have a right sided CVA, and more recently, a another CT scan of the brain revealed additional damage to the left side of his brain. The patient remains on the ventilator. He is on volume assist-control, rate 20, tidal volume 500, 30% FiO2, PEEP of 5. Blood gases show pO2 117, pCO2 of 28, pH of 7.44. The patient is on norepinephrine at 33 mcg/min, propofol at 20 mcg/kg/min, 0.9 to 120 cc an hour, and heparin via weight-based protocol. The patient is getting vital high-protein at 10 cc an hour. Repeat brain CT showing extension, was done yesterday, July 02. He now has bilateral ischemic strokes. The patient only moves his left lower extremity. Because of his higher doses of norepinephrine, will add vasopressin. His procalcitonin level was within normal range. We will check a cortisol level for adrenal insufficiency. Chest x-ray shows an opacified right chest. Bronchoscopy yesterday revealed significant secretions and disease, in the right lower lobe. White count 30.7, hemoglobin 8.3, hematocrit 28.2, platelet count 611,000. PTT is 42.7. Sodium 137, potassium 3.5, chlorides 116, CO2 17, BUN 4, creatinine 0.40. Glucose 131. Cultures thus far negative. Procalcitonin level is normal. Chest x-ray is unchanged. 07/04/2024, the patient is being seen for a follow-up. This morning, the patient remains sedated on propofol which is running at 20 mcg/kg/min. Remains intubated on the mechanical ventilator. He is on assist-control mode of mechanical ventilation at rate of 20, tidal volume of 500, FiO2 of 30% with a PEEP of 5. The peak airway pressure is 19. Chest x-ray from today shows complete opacification of the right lung. ET tube is in a good location. Left lung is relatively clear and there is a small left-sided pleural effusion. The blood gases from today showed a pH of 7.43 with a pCO2 of 30 and pO2 of 109. The patient has limited respiratory secretions. There is considerable amount of air leak around the ET tube and a cuff is probably blown. The bronchoscopy was done and the cultures were essentially negative. The patient is covered empirically with IV Zosyn. He remains hypotensive and he remains on norepinephrine which is running at 0.25 mcg/kg/min. IV fluids are running at 125 cc an hour of normal saline. Patient remains on IV heparin. The net fluid balance over the past 24 hours and has been in the order of 2.7 L. Blood work from today shows a white cell count of 26, hemoglobin of 8 and a platelet count of 586. Sodium is at 136, potassium is at 3.6, chloride is 1 of 15 with a bicarb of 19. BUN is 5 with a creatinine of 0.44. LFTs are essentially within normal limits. Serum cortisol is 22.3. Blood culture is negative. Bronchoscopy and the bronchoalveolar lavage there is also negative. Enteral feeding is currently on hold due to high residuals. Prior to that, the patient was on vital high-protein at the rate of 10 cc an hour. 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 He has minimal withdrawal in his left upper extremity and lower extremities and does not move his right side. Negative for Babinski sign on the left and the right foot is equivocal. Pupils are pinpoint and unreactive and the patient remains on propofol. Neurology is on the case. Vascular surgery has been consulted regarding the bilateral carotid artery disease. No plans to do a KAREN at this point in time. 07/05/2024, the patient is being seen for a follow-up. Remains intubated on mechanical ventilator. Earlier this morning, the patient was taken off sedation and the brief neurologic examination that was done revealed that the patient was not able to move his right upper and right lower extremity. He was able to move his fingers and toes upon demand on the left side. Extremely weak cough. Unable to raise his head of the bed. Poor coughing and gagging reflex at this point in time. He does have a preferential gaze in his looking into the left upper corner and the pupils are equal and reactive to light around 2 to 3 mm in size. Repeat carotid Doppler was done and the patient was found to have bilateral thrombus visualized in the bilateral internal carotid arteries that appear acute in nature and moving during real-time examination. It seems to be the clots are larger in the left internal carotid artery. There is also occlus baljinder right internal jugular vein DVT. On examination, the patient was also noted to have swelling in his left upper extremity. Ultrasound Doppler of the left upper extremity revealed a positive DVT in the left distal subclavian and axillary veins. The patient remains on IV heparin. The patient remains on mechanical ventilator. This morning, he is on assist-control mode with rate of 20, tidal volume of 500, FiO2 of 30% with a PEEP of 5. The blood gas showed a pH of 7.46 with a pCO2 of 28 and pO2 119. Fluid balance is +1 L over the past 24 hours. The patient was taken off pressors as of yesterday morning. He remains on normal saline which is running at 120 cc an hour and the patient is also on vital high-protein for enteral feeding at rate of 30 cc an hour. Chest x-ray from today shows volume loss in addition to complete opacification of the right lung. Left lung remains essentially clear. Tube is in a good location. Blood work from today shows a white cell count of 14 with a hemoglobin of 8.3 and a platelet count of 533. The PTT is therapeutic. BUN is 6 with a creatinine of 0.4 and sodium is at 138 and a bicarb deficit 18. LFTs are essentially within normal limits. The bronchoscopy endobronchial lavage that was done earlier yielded Serratia marcescens and the patient remains on IV Zosyn. On 07/06/2024, the patient remains intubated on the mechanical ventilator. Earlier this morning, the patient was on propofol that was running at 25 mcg/kg/min. Subsequently, the propofol was discontinued at around 7 AM. The patient is arousable. He is following simple commands. Extremely weak. Unable to raise his head. Unable to cough. He is moving his left upper and left lower extremity. 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 There is flaccid paralysis on the right side. Meanwhile, the patient is having increased respiratory secretions. The patient is currently on mechanical ventilator assist-control mode with rate of 20, tidal volume of 500, FiO2 30% with a PEEP of 5. The chest x-ray shows complete opacification of the right lung, patchy infiltration in the left infrahilar and left lower lobe area is seen in the patient's sputum sample was positive for Serratia marcescens. The patient remains on broad-spectrum antibiotics and the patient remains on IV Zosyn. Still his blood gases show a pH of 7.49 with a pCO2 of 27 and pO2 112. Normal saline was running at the rate of 40 cc an hour. The patient is currentl y off norepinephrine. The patient remains on IV heparin. The patient is on vital high-protein which is running at a rate of 50 cc an hour for enteral feeding and nutritional support. WBC count of 10.5 with a hemoglobin of 8 and a platelet count of 508. The sodium is at 139, potassium is at 3.3, bicarb is at 19, BUN is at 8 with a creatinine of 0.4. He was having some liquidy stool and stool was checked for C. difficile and it came back negative. On 07/07/2024, patient's condition essentially unchanged. Patient is currently on low-dose Precedex at 0.3 mcg/kg/h. More sedated this morning. Was unable to follow any commands. Will gradually wean off the Precedex and reevaluate his mentation. A follow-up CAT scan of the brain was done today and the patient was found to have no evidence of any intracranial bleed. Nevertheless, there was multiple infarcts and the patient had evolving acute/subacute infarct involving the left head of the caudate nucleus and left carlos radiata extending inferiorly into the posterior basal ganglia. In addition, there was acute infarct in the inferior right parietal region extending to the posterior superior temporal lobe. There was also persistent subacute infarct hide posterior bilateral frontal lobes and there is also background mild to moderate continuation and periventricular white matter changes. There is also possibly evolution of an infarct in the right cerebellar region. The patient remains on IV heparin. Hemodynamically stable. Remains on the mechanical ventilator assist-control mode with rate of 20, tidal volume of 500, FiO2 30% with a PEEP of 5. Blood gas shows a pH of 7.47 with a pCO2 of 23 and pO2 116. Not a candidate for extubation due to his significant neurologic impairment and poor ability to maintain his airway patency and poor coughing. The patient remains on normal saline at rate of 50 cc an hour. The patient is on vital high-protein at rate of 70. He was having diarrhea and stool for C. difficile was negative. WBC count is at 9.9 with a hemoglobin 7.9 and a platelet count of 495. BUN is 11 with a creatinine of 0.5. Sodium levels at 138 and a potassium level is at 3.7. Chloride is 117. Otherwise, no other significant events over the past 24 hours. On 07/08/2024, the patient is on Precedex running at 0.4 mcg/kg/h. Arousable, following simple commands, motor function left upper and left lower extremity is improved. The patient is on normal citrate of 50 cc an hour. The patient is on assist-control mode of mechanical ventilation at rate of 20, tidal volume of 500, FiO2 30% with a PEEP of 5. Remains on IV Zosyn regarding Serratia marcescens in his lungs and the patient is stable left perihilar/infrahilar and left lower lobe pulmonary filtrate. Right lung remains completely opacified. The patient is known to have stage IV pulm adenocarcinoma. The blood gas from today showed a pH of 7.47 with a pCO2 28 and a pO2 of 100. Fluid balance is +2.8 L over the past 24 hours and the patient is on vital high-protein at rate of 70 cc an hour. Diarrhea has subsided. The patient's white cell count of 9.6 with a hemoglobin of 7.5 and a platelet count of 447. The BUN is 16 with a creatinine of 0.47 and a sodium levels at 138 and a potassium level 3.7. I had a lengthy discussion with the . The is not interested in end-of-life care. The patient's is interested in ongoing respiratory care and tracheostomy if needed. I gave the option of extubation and evaluating the patient's respiratory status. Will reintubate if the patient fails extubation and we will going to consider tracheostomy at that point in time. The was agreeable to that. Based on all this, I am going to wean the patient off Precedex and extubate the patient monitoring very closely here in the intensive care unit. He was also started on Lasix 40 mg IV every 12 hours and the patient was noted to be in a positive fluid balance. On 07/09/2024, the patient remains extubated and the patient is currently on 2 L of oxygen by nasal cannula. Lethargic, arousable, profoundly weak, flaccid paralysis on the right, significant weakness on the left. Weak cough. No significant respiratory secretions. No respiratory distress. He is in sinus tachycardia. He is on normal saline at rate of 50 cc an hour. IV fluids will be switched to KVO. He is on Lasix 40 mg every 12 hours and the patient is negative for balance of 3.2 L over the past 24 hours. He is having diarrhea. Enteral feeding for nutritional support is being continued and the patient has an NG tube in place. Chest x-ray shows patchy infiltration in the left perihilar/left lower lobe area. Right lung is completely opacified. Remains on IV Zosyn. Afebrile. White cell count 16 with a hemoglobin 8.4 and a platelet count of 619. Electrolytes are all stable, BUN is 40 with a creatinine of 0.5. Objective - Vital Signs Vital signs: Vital Signs Temp 99 F 07/09/24 08:00 Pulse 114 H 07/09/24 08:20 Resp 31 H 07/09/24 08:00 BP 131/88 07/09/24 08:00 Pulse Ox 99 07/09/24 08:11 FiO2 3 07/09/24 04:00 Intake & Output 07/08/24 07/09/24 07/09/24 18:59 06:59 18:59 Intake Total 3706.339 8526 153 Output Total 7665 4160 45 Balance -8507.075 -1704 108 Weight 78 kg Intake: IV 876 916 153 Magnesium Sulfate-D5w Pmx 100 1 gm In Dextrose/Water 1 100ml.bag @ 100 mls/hr IVPB ONCE ONE Rx#: [id number] Piperacillin-Tazobactam 3 100 100 .375 gm In Sodium Chloride 0.9% 100 ml @ 25 mls/hr IVPB Q8H [facility] Rx#: [id number] Potassium Chloride 20 meq 100 In Water For Injection 1 100ml.bag @ 50 mls/hr IVPB Q2H [facility] Rx#: [id number] Sodium Chloride 0.9% 1, 640 780 50 000 ml @ 50 mls/hr IV . Q20H [facility] Rx#:[id number] pressure bag 36 36 3 Intake, IV Titration 81.925 250 Amount Dexmedetomidine/0.9% NaCl 81.925 (Pmx) 400 mcg In Empty Bag 1 bag @ 0.2 MCG/KG/HR 3.945 mls/hr IV .Q24H [facility] Rx#:[id number] Heparin Sod,Pork in 0.45% 250 NaCl 25,000 unit In 0.45 % NaCl 1 250ml.bag @ 12 UNITS/KG/HR 7.932 mls/hr IV .Q24H [facility] Rx#: [id number] Tube Feeding 140 Other 30 Output: Urine 2840 2870 45 Stool 525 Other: Voiding Method Indwelling Catheter ABP, PAP, CO, CI - Last Documented Arterial Blood Pressure 116/77 - Exam No acute distress, extubated and the patient is currently on 2 L of oxygen nasal cannula,. Lethargic, weak, flaccid paralysis on the right. NG tube is in place. No signs of any respiratory distress. HEENT examination is grossly unremarkable. Patient has an orally placed endotracheal tube. Neck supple. Full range of motion. No adenopathy thyromegaly or neck vein distention. Cardiovascular examination reveals regular rhythm rate. S1-S2 normal. No S3 or S4. No discernible murmur noted. Heart sounds are distant. Lungs reveal mild scattered rhonchi. No wheezes or crackles. Breath sounds are diminished on the right side. Abdomen soft without bowel sounds. Extremities are intact. No cyanosis clubbing and there is edema in all extremities. The patient does move his left lower extremity from time to time. Skin is without rash or lesion. Neurologic examination cannot be adequately assessed at this time. Pupils are pinpoint, sluggishly reactive to light. The patient has flaccid paralysis in the right upper extremity. Minimal movement and has left side as mentioned. Babinski is negative on the left and equivocal on the right. Motor and sensory functions cannot be accurately determined. No facial asymmetry. Weak cough and a gag. - Labs CBC & Chem 7: 07/09/24 04:00 07/09/24 04:00 Labs: Abnormal Lab Results - Last 24 Hours (Table) 07/09/24 07/09/24 07/09/24 Range/Units 04:00 04:00 04:00 WBC 16.1 H (3.8-10.6) k/uL RBC 3.76 L (4.30-5.90) m/uL Hgb 8.4 L (13.0-17.5) gm/dL Hct 27.6 L (39.0-53.0) % MCV 73.5 L (80.0-100.0) fL MCH 22.3 L (25.0-35.0) pg MCHC 30.3 L (31.0-37.0) g/dL RDW 17.2 H (11.5-15.5) % Plt Count 619 H (150-450) k/uL Neutrophils # 14.0 H (1.3-7.7) k/uL Lymphocytes # 0.8 L (1.0-4.8) k/uL Monocytes # 1.1 H (0-1.0) k/uL APTT 39.2 H (22.0-30.0) sec Potassium 3.2 L (3.5-5.1) mmol/L Chloride 115 H (98-107) mmol/L Creatinine 0.50 L (0.66-1.25) mg/dL Glucose 69 L (74-99) mg/dL POC Glucose (mg/dL) (70-110) mg/dL Calcium 8.3 L (8.4-10.2) mg/dL 07/09/24 Range/Units 06:19 WBC (3.8-10.6) k/uL RBC (4.30-5.90) m/uL Hgb (13.0-17.5) gm/dL Hct (39.0-53.0) % MCV (80.0-100.0) fL MCH (25.0-35.0) pg MCHC (31.0-37.0) g/dL RDW (11.5-15.5) % Plt Count (150-450) k/uL Neutrophils # (1.3-7.7) k/uL Lymphocytes # (1.0-4.8) k/uL Monocytes # (0-1.0) k/uL APTT (22.0-30.0) sec Potassium (3.5-5.1) mmol/L Chloride (98-107) mmol/L Creatinine (0.66-1.25) mg/dL Glucose (74-99) mg/dL POC Glucose (mg/dL) 113 H (70-110) mg/dL Calcium (8.4-10.2) mg/dL Assessment and Plan Plan: Acute respiratory failure, requiring intubation/mechanical ventilation, secondary to poor neurologic status secondary to CVA, and inability to protect airway, 06/30/2024 and the patient remains intubated on the mechanical ventilator. The patient has complete opacified right lung which is a combination of chronic pleural effusion and trapped lung with a right lung/hilar mass causing obstruction of the right upper lobe and the right lower lobe bronchi. Chest x-ray is showing left infrahilar and left lower lobe patchy infiltration and the patient sputum sample is positive for Serratia and the patient is currently on IV Zosyn. Extubated on 07/08/2024 and the patient currently on 2 L of oxygen by nasal cannula. Chest x-ray continues to show infiltrates on in the left perihilar area in the left lower lobe. Remains on IV Zosyn. Right parietal/temporal acute/subacute ischemic CVA, with evolving bilateral ischemic CVAs. Most recent CAT scan of the brain on 07/02/2024 shows evolving multifocal acute/subacute CVA and the patient was found to have multiple scattered hypoattenuating areas throughout the brain with miranda/white matter loss. There is also evolution of the stroke compared to the earlier CAT scan on 07/01/2024 including bilateral frontal lobes and left basal ganglia, left caudate nucleus, right temporal lobe and left occipital parietal region and right caudate nucleus among other areas. CT of the brain showed no significant intracranial vascular abnormality. There is bilateral carotid artery disease involving the proximal internal carotid artery creating 75% stenosis on the right and 90% stenosis on the left. Repeat ultrasound with Doppler shows acute thrombus involving the anterior carotid arteries bilaterally . the patient was also found to have clot movement during real-time examination. Findings were worse on the left.and the patient currently is on IV heparin. Neurologically, unchanged and follow-up CAT scan of the brain was done on 07/07/2024 showed no evidence of any bleeding and there is extensive bilateral acute/subacute stroke in evolution. There is significant neurologic impairment. Neurologically, the patient remains awake. He is off sedation. Minimal motor function in the left upper and left lower extremity. stage IV lung cancer, the patient is known to have pulm adenocarcinoma the patient has been receiving Tabrecta on outpatient basis and his treatment was essentially to [facility]. He is known to have chronic volume loss and a chronic right-sided pleural effusion. The mass in his right upper lobe/hilum was causing right upper lobe bronchus and the right lower lobe bronchus and the patient has developed chronic right-sided pleural effusion/atelectasis which has remained unchanged on serial x-rays. Chronic persistent right-sided pleural effusion, with the possibility of postobstructive pneumonia involving the right and the left lower lobe pneumonia and the patient is currently on IV Zosyn. Right IJ DVT Left axillary and subclavian vein DVT and the patient has a subclavian triple- lumen catheter in place on the left Hypertension Hyperlipidemia Diabetes mellitus type 2 Polysubstance abuse including cocaine Acute leukocytosis Anemia of chronic disease Acid reflux Plan Discontinue Prece no sedation Currently on 2 L of oxygen by nasal cannula Stop the IV heparin and switch the patient to Lovenox 80 mg SQ every 12 hours Continue IV Zosyn Continue IV Lasix No pressors Start metoprolol 12.5 mg twice daily Start Tabrecta Continue enteral feeding for nutritional support Repeat CAT scan of the brain was noted and there is no evidence of any bleed since 07/07/2024 Discussed the case with vascular surgery and not a surgical candidate regarding the carotid artery disease I will continue the anticoagulation with IV heparin Not a candidate for any surgical intervention specially with his terminal stage IV non-small cell lung cancer and significant neurologic impairment following his bilateral CVAs. Continue IV Protonix Continue aspirin Will start the patient on IV Lasix High risk for reintubation. Will continue to monitor. Based on above-mentioned comorbidities, the prognosis extremely poor. This evaluation was done more than 30 minutes Time with Patient: Greater than 30
[2024-07-09] MEDS ORDERED: Potassium Replacement Protocol 1 EACH MISC MISCELLANE PRN (15:04)
[2024-07-09] MEDS: POTASSIUM BICARBONATE/CIT AC 20 MEQ TABLET.EFF NG-TUBE SCH ×2 (15:53→21:14)
[2024-07-09 17:59] LABS: Glucose,Whole Blood 82 mg/dL (70-110)
[2024-07-10 00:27] LABS: Glucose,Whole Blood 95 mg/dL (70-110)
[2024-07-10] MEDS: POTASSIUM BICARBONATE/CIT AC 20 MEQ TABLET.EFF NG-TUBE SCH ×2 (01:59→20:37)
[2024-07-10 05:34] LABS: Anisocytosis Slight; Basophils % (A) 0 %; Eosinophils % (A) 0 %; HCT 27.6 % (39.0-53.0); HGB 8.4 gm/dL (13.0-17.5); Hypochromasia Marked; Lymphocytes # (A) 0.8 k/uL (1.0-4.8); Lymphocytes % (A) 6 %; MCH 22.1 pg (25.0-35.0); MCHC 30.2 g/dL (31.0-37.0); MCV 73.1 fL (80.0-100.0); Mean Platelet Volume 6.8; Microcytosis Moderate; Monocytes % (A) 8 %; Neutrophils # (A) 11.4 k/uL (1.3-7.7); Neutrophils % (A) 85 %; Platelet Count 645 k/uL (150-450); Poikilocytosis Slight; RBC 3.78 m/uL (4.30-5.90); RDW 17.4 % (11.5-15.5); WBC 13.5 k/uL (3.8-10.6)
[2024-07-10 05:47] LABS: African American GFR (CKD) >90 (>60 ml/min/1.73 sqM); Anion Gap 3 mmol/L; Blood Urea Nitrogen 12 mg/dL (9-20); Calcium 8.5 mg/dL (8.4-10.2); Carbon Dioxide 25 mmol/L (22-30); Chloride 112 mmol/L (98-107); Glucose 97 mg/dL (74-99); Magnesium 1.7 mg/dL (1.6-2.3); Non-African American GFR(CKD) >90 (>60 ml/min/1.73 sqM); Potassium 4.1 mmol/L (3.5-5.1); Sodium 140 mmol/L (137-145)
[2024-07-10] MEDS: MAGNESIUM SULFATE-D5W PMX 1 GM in DEXTROSE/WATER 1 100ML.BAG IVPB ONE (06:35)
--- NOTE | 2024-07-10 11:22 | P.PN ---
Subjective Progress Note Date: 07/10/24 68-year-old black male with a history of multiple medical problems including advanced lung cancer, right pleural effusion, hyperlipidemia, hypertension, GERD, type 2 diabetes. The patient presented to the emergency department, at about 8:00 PM on June 30, with strokelike symptoms. He apparently was found to have slurred speech. He apparently became incoherent, and was apparently struggling to move the left side of his body. EMS was called and he was brought into the emergency department. The patient apparently was not able to protect his airway, and required intubation and mechanical ventilation. I did speak to Dr. Rodriguez in the emergency department. The patient is transferred to the intensive care unit, for further monitoring and management. The patient's drug screen was positive for opiates and cocaine. That may have had some effect on his neurologic issues. He is currently on volume assist-control, rate 20, tidal volume 500, FiO2 40%, PEEP of 5. Blood gases initially showed a pO2 that was greater than 420, pCO2 29, pH of 7.49. The patient is on propofol at 30 mcg/kg/min, saline at 120 cc an hour. When the patient came to the intensive care unit, we placed a right radial art line, a left subclavian triple-lumen catheter, and because his endotracheal tube was defective, we replaced the endotracheal tube with a #8 endotracheal tube. Current laboratory data includes a white count of 8.6, hemoglobin 7.8, hematocrit 26.6, platelet count of 508,000. Sodium 135, potassium 3.2, chlorides 108, CO2 21, BUN 5, and creatinine 0.58. Calcium 7.5, magnesium 1.5. Albumin 2. Urine is negative. Drug screen was positive for opiates, oxycodone, and cocaine. Viral studies were negative. Chest x-ray showed an opacified right hemithorax. Progress note dated July 02, 2024. 68-year-old black male seen today in room 255. His , flew up from [place] last night, and is at the bedside. The patient is currently on volume assist- control, rate 20, tidal volume 500, FiO2 40%, PEEP of 5. Blood gases show pO2 172, pCO2 25, pH of 7.48. The FiO2 was reduced down to 30%. The patient is on propofol at 20 mcg/kg/min, norepinephrine at 33 mcg/min, heparin via weight- based protocol, and saline at 120 cc an hour. The patient CT scan of the brain revealed a an evolving CVA, involving the right side, with left-sided weakness. The patient will have tube feeds started. In addition, chest x-ray reveals an opacified right hemithorax, and bronchoscopy will be done this morning. White count 15.2, hemoglobin 8.8, hematocrit 29.1, platelet count of 659,000. PT 1 2.8, INR 1.2. Sodium 137, potassium 3.6, chlorides 111, CO2 19, BUN 4, creatinine 0.47. Glucose was 164. Calcium 7.6. Magnesium 1.6. Chest x-ray reveals a right opacified hemithorax. CT scan of the reveals acute/subacute ischemia in the right parietotemporal area, and right frontal lobe. Progress note dated July 03, 2024. 68-year-old black male seen again in room 255. The patient has a history of lung cancer, advanced. The patient presented with neurologic findings, and was found to have a right sided CVA, and more recently, a another CT scan of the brain revealed additional damage to the left side of his brain. The patient remains on the ventilator. He is on volume assist-control, rate 20, tidal volume 500, 30% FiO2, PEEP of 5. Blood gases show pO2 117, pCO2 of 28, pH of 7.44. The patient is on norepinephrine at 33 mcg/min, propofol at 20 mcg/kg/min, 0.9 to 120 cc an hour, and heparin via weight-based protocol. The patient is getting vital high-protein at 10 cc an hour. Repeat brain CT showing extension, was done yesterday, July 02. He now has bilateral ischemic strokes. The patient only moves his left lower extremity. Because of his higher doses of norepinephrine, will add vasopressin. His procalcitonin level was within normal range. We will check a cortisol level for adrenal insufficiency. Chest x-ray shows an opacified right chest. Bronchoscopy yesterday revealed significant secretions and disease, in the right lower lobe. White count 30.7, hemoglobin 8.3, hematocrit 28.2, platelet count 611,000. PTT is 42.7. Sodium 137, potassium 3.5, chlorides 116, CO2 17, BUN 4, creatinine 0.40. Glucose 131. Cultures thus far negative. Procalcitonin level is normal. Chest x-ray is unchanged. 07/04/2024, the patient is being seen for a follow-up. This morning, the patient remains sedated on propofol which is running at 20 mcg/kg/min. Remains intubated on the mechanical ventilator. He is on assist-control mode of mechanical ventilation at rate of 20, tidal volume of 500, FiO2 of 30% with a PEEP of 5. The peak airway pressure is 19. Chest x-ray from today shows complete opacification of the right lung. ET tube is in a good location. Left lung is relatively clear and there is a small left-sided pleural effusion. The blood gases from today showed a pH of 7.43 with a pCO2 of 30 and pO2 of 109. The patient has limited respiratory secretions. There is considerable amount of air leak around the ET tube and a cuff is probably blown. The bronchoscopy was done and the cultures were essentially negative. The patient is covered empirically with IV Zosyn. He remains hypotensive and he remains on norepinephrine which is running at 0.25 mcg/kg/min. IV fluids are running at 125 cc an hour of normal saline. Patient remains on IV heparin. The net fluid balance over the past 24 hours and has been in the order of 2.7 L. Blood work from today shows a white cell count of 26, hemoglobin of 8 and a platelet count of 586. Sodium is at 136, potassium is at 3.6, chloride is 1 of 15 with a bicarb of 19. BUN is 5 with a creatinine of 0.44. LFTs are essentially within normal limits. Serum cortisol is 22.3. Blood culture is negative. Bronchoscopy and the bronchoalveolar lavage there is also negative. Enteral feeding is currently on hold due to high residuals. Prior to that, the patient was on vital high-protein at the rate of 10 cc an hour. 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 He has minimal withdrawal in his left upper extremity and lower extremities and does not move his right side. Negative for Babinski sign on the left and the right foot is equivocal. Pupils are pinpoint and unreactive and the patient remains on propofol. Neurology is on the case. Vascular surgery has been consulted regarding the bilateral carotid artery disease. No plans to do a KAREN at this point in time. 07/05/2024, the patient is being seen for a follow-up. Remains intubated on mechanical ventilator. Earlier this morning, the patient was taken off sedation and the brief neurologic examination that was done revealed that the patient was not able to move his right upper and right lower extremity. He was able to move his fingers and toes upon demand on the left side. Extremely weak cough. Unable to raise his head of the bed. Poor coughing and gagging reflex at this point in time. He does have a preferential gaze in his looking into the left upper corner and the pupils are equal and reactive to light around 2 to 3 mm in size. Repeat carotid Doppler was done and the patient was found to have bilateral thrombus visualized in the bilateral internal carotid arteries that appear acute in nature and moving during real-time examination. It seems to be the clots are larger in the left internal carotid artery. There is also occlus baljinder right internal jugular vein DVT. On examination, the patient was also noted to have swelling in his left upper extremity. Ultrasound Doppler of the left upper extremity revealed a positive DVT in the left distal subclavian and axillary veins. The patient remains on IV heparin. The patient remains on mechanical ventilator. This morning, he is on assist-control mode with rate of 20, tidal volume of 500, FiO2 of 30% with a PEEP of 5. The blood gas showed a pH of 7.46 with a pCO2 of 28 and pO2 119. Fluid balance is +1 L over the past 24 hours. The patient was taken off pressors as of yesterday morning. He remains on normal saline which is running at 120 cc an hour and the patient is also on vital high-protein for enteral feeding at rate of 30 cc an hour. Chest x-ray from today shows volume loss in addition to complete opacification of the right lung. Left lung remains essentially clear. Tube is in a good location. Blood work from today shows a white cell count of 14 with a hemoglobin of 8.3 and a platelet count of 533. The PTT is therapeutic. BUN is 6 with a creatinine of 0.4 and sodium is at 138 and a bicarb deficit 18. LFTs are essentially within normal limits. The bronchoscopy endobronchial lavage that was done earlier yielded Serratia marcescens and the patient remains on IV Zosyn. On 07/06/2024, the patient remains intubated on the mechanical ventilator. Earlier this morning, the patient was on propofol that was running at 25 mcg/kg/min. Subsequently, the propofol was discontinued at around 7 AM. The patient is arousable. He is following simple commands. Extremely weak. Unable to raise his head. Unable to cough. He is moving his left upper and left lower extremity. 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 There is flaccid paralysis on the right side. Meanwhile, the patient is having increased respiratory secretions. The patient is currently on mechanical ventilator assist-control mode with rate of 20, tidal volume of 500, FiO2 30% with a PEEP of 5. The chest x-ray shows complete opacification of the right lung, patchy infiltration in the left infrahilar and left lower lobe area is seen in the patient's sputum sample was positive for Serratia marcescens. The patient remains on broad-spectrum antibiotics and the patient remains on IV Zosyn. Still his blood gases show a pH of 7.49 with a pCO2 of 27 and pO2 112. Normal saline was running at the rate of 40 cc an hour. The patient is currentl y off norepinephrine. The patient remains on IV heparin. The patient is on vital high-protein which is running at a rate of 50 cc an hour for enteral feeding and nutritional support. WBC count of 10.5 with a hemoglobin of 8 and a platelet count of 508. The sodium is at 139, potassium is at 3.3, bicarb is at 19, BUN is at 8 with a creatinine of 0.4. He was having some liquidy stool and stool was checked for C. difficile and it came back negative. On 07/07/2024, patient's condition essentially unchanged. Patient is currently on low-dose Precedex at 0.3 mcg/kg/h. More sedated this morning. Was unable to follow any commands. Will gradually wean off the Precedex and reevaluate his mentation. A follow-up CAT scan of the brain was done today and the patient was found to have no evidence of any intracranial bleed. Nevertheless, there was multiple infarcts and the patient had evolving acute/subacute infarct involving the left head of the caudate nucleus and left carlos radiata extending inferiorly into the posterior basal ganglia. In addition, there was acute infarct in the inferior right parietal region extending to the posterior superior temporal lobe. There was also persistent subacute infarct hide posterior bilateral frontal lobes and there is also background mild to moderate continuation and periventricular white matter changes. There is also possibly evolution of an infarct in the right cerebellar region. The patient remains on IV heparin. Hemodynamically stable. Remains on the mechanical ventilator assist-control mode with rate of 20, tidal volume of 500, FiO2 30% with a PEEP of 5. Blood gas shows a pH of 7.47 with a pCO2 of 23 and pO2 116. Not a candidate for extubation due to his significant neurologic impairment and poor ability to maintain his airway patency and poor coughing. The patient remains on normal saline at rate of 50 cc an hour. The patient is on vital high-protein at rate of 70. He was having diarrhea and stool for C. difficile was negative. WBC count is at 9.9 with a hemoglobin 7.9 and a platelet count of 495. BUN is 11 with a creatinine of 0.5. Sodium levels at 138 and a potassium level is at 3.7. Chloride is 117. Otherwise, no other significant events over the past 24 hours. On 07/08/2024, the patient is on Precedex running at 0.4 mcg/kg/h. Arousable, following simple commands, motor function left upper and left lower extremity is improved. The patient is on normal citrate of 50 cc an hour. The patient is on assist-control mode of mechanical ventilation at rate of 20, tidal volume of 500, FiO2 30% with a PEEP of 5. Remains on IV Zosyn regarding Serratia marcescens in his lungs and the patient is stable left perihilar/infrahilar and left lower lobe pulmonary filtrate. Right lung remains completely opacified. The patient is known to have stage IV pulm adenocarcinoma. The blood gas from today showed a pH of 7.47 with a pCO2 28 and a pO2 of 100. Fluid balance is +2.8 L over the past 24 hours and the patient is on vital high-protein at rate of 70 cc an hour. Diarrhea has subsided. The patient's white cell count of 9.6 with a hemoglobin of 7.5 and a platelet count of 447. The BUN is 16 with a creatinine of 0.47 and a sodium levels at 138 and a potassium level 3.7. I had a lengthy discussion with the . The is not interested in end-of-life care. The patient's is interested in ongoing respiratory care and tracheostomy if needed. I gave the option of extubation and evaluating the patient's respiratory status. Will reintubate if the patient fails extubation and we will going to consider tracheostomy at that point in time. The was agreeable to that. Based on all this, I am going to wean the patient off Precedex and extubate the patient monitoring very closely here in the intensive care unit. He was also started on Lasix 40 mg IV every 12 hours and the patient was noted to be in a positive fluid balance. On 07/09/2024, the patient remains extubated and the patient is currently on 2 L of oxygen by nasal cannula. Lethargic, arousable, profoundly weak, flaccid paralysis on the right, significant weakness on the left. Weak cough. No significant respiratory secretions. No respiratory distress. He is in sinus tachycardia. He is on normal saline at rate of 50 cc an hour. IV fluids will be switched to KVO. He is on Lasix 40 mg every 12 hours and the patient is negative for balance of 3.2 L over the past 24 hours. He is having diarrhea. Enteral feeding for nutritional support is being continued and the patient has an NG tube in place. Chest x-ray shows patchy infiltration in the left perihilar/left lower lobe area. Right lung is completely opacified. Remains on IV Zosyn. Afebrile. White cell count 16 with a hemoglobin 8.4 and a platelet count of 619. Electrolytes are all stable, BUN is 40 with a creatinine of 0.5. On 09/10/2023, the patient is on room air oxygen. He seems to be quite lethargic. Neurologically unchanged. Absent motor function in the right upper and right lower extremity. Minimal activity on the left. Continues to have a weak cough. NG tube in place and the patient continues to receive vital AF at rate of 40 cc an hour. He is having diarrhea and the fecal management system was applied. He is receiving Lomotil in the stool for C. difficile has been negative. He is on IV Lasix 40 mg every 12 hours and the fluid balance is -3.9 L over the past 24 hours and the patient shows some improvement in the lower extremity and upper extremity edema. He is currently on the Lovenox 80 mg SQ every 12 hours. Remains on IV Zosyn. No chest x-ray from today. Chest x-ray from yesterday shows opacification of the right lung with some limited infiltration of the left perihilar and left lower lobe. No significant respiratory secretions. Remains slightly tachycardic currently on metoprolol 12.5 mg p.o. twice a day.Labs were noted. The white cell count is at 13 with a hemoglobin of 8.4 and a platelet count of 645. BUN is 12 with a creatinine of 0.5. Potassium is at 4.1 and sodium is at 140. Objective - Vital Signs Vital signs: Vital Signs Temp 98.8 F 07/10/24 04:00 Pulse 126 H 07/10/24 07:00 Resp 38 H 07/10/24 07:00 BP 125/80 07/10/24 07:00 Pulse Ox 99 07/10/24 07:00 FiO2 3 07/09/24 04:00 Intake & Output 07/09/24 07/10/24 07/10/24 18:59 06:59 18:59 Intake Total 603 1079 Output Total 2654 2195 Balance -1722 -1116 Weight 78 kg 78.5 kg Intake: IV 463 539 Magnesium Sulfate-D5w Pmx 100 1 gm In Dextrose/Water 1 100ml.bag @ 100 mls/hr IVPB ONCE ONE Rx#: [id number] Magnesium Sulfate-D5w Pmx 100 1 gm In Dextrose/Water 1 100ml.bag @ 100 mls/hr IVPB Q1H [facility] Rx#: [id number] Piperacillin-Tazobactam 3 100 .375 gm In Sodium Chloride 0.9% 100 ml @ 25 mls/hr IVPB Q8H [facility] Rx#: [id number] Piperacillin-Tazobactam 3 100 .375 gm In Sodium Chloride 0.9% 100 ml @ 25 mls/hr IVPB Q8H [facility] Rx#: [id number] Potassium Chloride 20 meq 100 In Water For Injection 1 100ml.bag @ 50 mls/hr IVPB Q2H [facility] Rx#: [id number] Sodium Chloride 0.9% 1, 230 200 000 ml @ 20 mls/hr IV . Q24H [facility] Rx#:[id number] pressure bag 33 39 Tube Feeding 120 390 Other 20 150 Output: Urine 1925 5 Stool 400 150 Other: Voiding Method Indwelling Catheter Indwelling Catheter ABP, PAP, CO, CI - Last Documented Arterial Blood Pressure 110/67 - Exam No acute distress, extubated and the patient is currently on room air oxygen ,. Lethargic, weak, flaccid paralysis on the right. NG tube is in place. No signs of any respiratory distress. HEENT examination is grossly unremarkable. Patient has an orally placed e ndotracheal tube. Neck supple. Full range of motion. No adenopathy thyromegaly or neck vein distention. Cardiovascular examination reveals regular rhythm rate. S1-S2 normal. No S3 or S4. No discernible murmur noted. Heart sounds are distant. Lungs reveal mild scattered rhonchi. No wheezes or crackles. Breath sounds are diminished on the right side. Abdomen soft without bowel sounds. Extremities are intact. No cyanosis clubbing and there is edema in all extremities. The patient does move his left lower extremity from time to time. Skin is without rash or lesion. Neurologic examination cannot be adequately assessed at this time. Pupils are pinpoint, sluggishly reactive to light. The patient has flaccid paralysis in the right upper extremity. Minimal movement and has left side as mentioned. Babinski is negative on the left and equivocal on the right. Motor and sensory functions cannot be accurately determined. No facial asymmetry. Weak cough and a gag. - Labs CBC & Chem 7: 07/10/24 04:55 07/10/24 04:55 Labs: Abnormal Lab Results - Last 24 Hours (Table) 07/09/24 07/10/24 07/10/24 Range/Units 14:36 04:55 04:55 WBC 13.5 H (3.8-10.6) k/uL RBC 3.78 L (4.30-5.90) m/uL Hgb 8.4 L (13.0-17.5) gm/dL Hct 27.6 L (39.0-53.0) % MCV 73.1 L (80.0-100.0) fL MCH 22.1 L (25.0-35.0) pg MCHC 30.2 L (31.0-37.0) g/dL RDW 17.4 H (11.5-15.5) % Plt Count 645 H (150-450) k/uL Neutrophils # 11.4 H (1.3-7.7) k/uL Lymphocytes # 0.8 L (1.0-4.8) k/uL Potassium 3.3 L (3.5-5.1) mmol/L Chloride 112 H (98-107) mmol/L Creatinine 0.54 L (0.66-1.25) mg/dL Assessment and Plan Plan: Acute respiratory failure, requiring intubation/mechanical ventilation, secondary to poor neurologic status secondary to CVA, and inability to protect airway, 06/30/2024 and the patient remains intubated on the mechanical ventilator. The patient has complete opacified right lung which is a combination of chronic pleural effusion and trapped lung with a right lung/hilar mass causing obstruction of the right upper lobe and the right lower lobe bronchi. Chest x-ray is showing left infrahilar and left lower lobe patchy infiltration and the patient sputum sample is positive for Serratia and the patient is currently on IV Zosyn. Extubated on 07/08/2024 and the patient currently on room air oxygen. Continues to have a weak cough. Concern for poor ability to perform pulmonary toileting based on his multiple strokes. High risk for respiratory failure as stated earlier. Right parietal/temporal acute/subacute ischemic CVA, with evolving bilateral ischemic CVAs. Most recent CAT scan of the brain on 07/02/2024 shows evolving multifocal acute/subacute CVA and the patient was found to have multiple scattered hypoattenuating areas throughout the brain with miranda/white matter lo ss. There is also evolution of the stroke compared to the earlier CAT scan on 07/01/2024 including bilateral frontal lobes and left basal ganglia, left caudate nucleus, right temporal lobe and left occipital parietal region and right caudate nucleus among other areas. CT of the brain showed no significant intracranial vascular abnormality. There is bilateral carotid artery disease involving the proximal internal carotid artery creating 75% stenosis on the right and 90% stenosis on the left. Repeat ultrasound with Doppler shows acute thrombus involving the anterior carotid arteries bilaterally . the patient was also found to have clot movement during real-time examination. Findings were worse on the left.and the patient currently is on IV heparin. Neurologically, unchanged and follow-up CAT scan of the brain was done on 07/07/2024 showed no evidence of any bleeding and there is extensive bilateral acute/subacute stroke in evolution. There is significant neurologic impairment. Neurologically, the patient remains awake. He is off sedation. Minimal motor function in the left upper and left lower extremity. The patient currently is on subcu Lovenox 80 mg every 12 hours. stage IV lung cancer, the patient is known to have pulm adenocarcinoma the patient has been receiving Tabrecta on outpatient basis and his treatment was essentially to [facility]. He is known to have chronic volume loss and a chronic right-sided pleural effusion. The mass in his right upper lobe/hilum was causing right upper lobe bronchus and the right lower lobe bronchus and the patient has developed chronic right-sided pleural effusion/atelectasis which has remained unchanged on serial x-rays. Chronic persistent right-sided pleural effusion, with the possibility of postobstructive pneumonia involving the right and the left lower lobe pneumonia and the patient is currently on IV Zosyn. Right IJ DVT Left axillary and subclavian vein DVT and the patient has a subclavian triple-lumen catheter in place on the left Hypertension Hyperlipidemia Diabetes mellitus type 2 Polysubstance abuse including cocaine Acute leukocytosis Anemia of chronic disease Acid reflux Diarrhea, stool for C. difficile negative. Plan No sedation Currently on room air oxygen Continue Lovenox 80 mg SQ every 12 hours Continue IV Zosyn Continue IV Lasix No pressors Increase the metoprolol to 25 mg twice daily Unable to crush Tabrecta and as such unable to give it through his NG tube. Continue enteral feeding for nutritional support Repeat CAT scan of the brain was noted and there is no evidence of any bleed since 07/07/2024 Discussed the case with vascular surgery and not a surgical candidate regarding the carotid artery disease I will continue the anticoagulation with IV heparin Not a candidate for any surgical intervention specially with his terminal stage IV non-small cell lung cancer and significant neurologic impairment following his bilateral CVAs. Continue IV Protonix Continue aspirin High risk for reintubation. Will continue to monitor. Based on above-mentioned comorbidities, the prognosis extremely poor. This evaluation was done more than 30 minutes Time with Patient: Greater than 30
[2024-07-10 11:23] LABS: Glucose,Whole Blood 123 mg/dL (70-110)
--- NOTE | 2024-07-10 12:48 | P.PN ---
Subjective Progress Note Date: 07/10/24 68-year-old man with stage IV lung CA on immunotherapy, DM, HTN, HLD, recent upper extremity DVT on Eliquis, GERD, who presented to the ED with left-sided weakness and altered mental status. In the ED he underwent extensive evaluation. BP 135/98, HR 105, RR 18, 99% on RA. Patient was intubated in the ER for airway protection. Initial CT brain was negative. CBC, Coag panel, CMP significant for Hg 9.9, Hct 33.6, MCV 75.7, Plt 777, Na 132, bicarb 20, BUN 7, Cr 0.63, glu 121, alk phos 130, alb 2.9. Lactic acid 3. Trop < 0.012. Ammonia 9. CTA head and neck showed fibrofatty thrombus within the bilateral proximal internal carotid arteries creating 75% stenosis on the right and 90% stenosis in the left. CXR showed large R pleural effusion. Patient was not a candidate for TNK per interventional neurology who was contacted by ED. Vascular surgery and Neurology was consulted. Patient was started on ASA, Plavix, Lipitor and heparin infusion. Vascular surgery recommended transfer to tertiary care facility for thrombectomy. Patient's declined transfer at that time given the patient multiple cormorbidities. Repeat CT of the brain revealed multiple bilateral embolic infarcts. Cardiology was consulted for KAREN and recommended against the study due to no history of arrhythmia and known bilateral carotid artery stenosis and thrombus. Patient did undergo bronchoscopy with BAL on 06/30 which was consistent with right lung collapse. BAL cultures grew Serratia and patient was started on Zosyn. Patient's ETT was exchanged on 07/04. 07/06 Patient was seen and examined. Off propofol following simple commands. Currently intubated. Patient with foul smelling diarrhea with rectal tube in place. Currently on heparin drip at 16 units/kg/hr. Antibiotics include Zosyn. CBC RBC 3.62, Hg 8, Hct 26.8, MCV 73.9, Plt 508. APTT 42.7. ABG pH 7.49, pCO2 27. CMP K 3.3, Cl 116, bicarb 19, BUN 8, Cr 0.48, Ca 7.8, alb 1.8. Mag 1.7. CXR done today complete opacification of the right hemithorax. 07/07 Patient was seen and examined. Off propofol following simple commands. Currently on Precedex at 0.3 mcg/kg/hr. Currently intubated. Patient with foul smelling diarrhea with rectal tube in place, C. diff is negative. Currently on heparin drip at 18 units/kg/hr. Antibiotics include Zosyn 3.75 g IV TID (D3) for treatment of Serratia BAL culture. CBC RBC 3.61, Hg 7.9, Hct 26.7, MCV 73.8, Plt 495. APTT 38. ABG pH 7.47, pCO2 28. CMP Cl 117, bicarb 19, Cr 0.5, glu 101, Ca 7.7, alb 1.8. Mag 1.7. Repeat brain CT shows bilateral infarcts with no hemorrhage or midline shift. CXR done today complete opacification of the right hemithorax. 07/08 Patient was seen and examined. Currently extubated. Precedex discontinued. Currently on heparin drip at 18 units/kg/hr. Antibiotics include Zosyn 3.75 g IV TID (D4) for treatment of Serratia BAL culture. CBC RBC 3.4, Hg 7.5, Hct 25.3, MCV 74.5. APTT 42.1. ABG pH 7.47, pCO2 28. BMP Cl 115, bicarb 20, Cr 0.47, glu 109, Ca 8. Mag 1.6. CXR done today complete opacification of the right hemithorax which is unchanged. 07/09 Patient was seen and examined. 100% on RA. Heparin drip switched to Lovenox 80 mg SQ BID by Pulmonary. Antibiotics include Zosyn 3.75 g IV TID (D5) for treatment of Serratia BAL culture. CBC WBC 16.1, RBC 3.76, Hg 8.4, Hct 27.6, MCV 73.5, Plt 619. APTT 39.2. BMP K 3.2, Cl 115, Cr 0.5, glu 69, Ca 8.3. Mag 1.6. CXR done today complete opacification of the right hemithorax with possible new right lung consolidation. 07/10 Patient was seen and examined. 100% on RA. Neurologically unchanged. Maintained on Lovenox 80 mg SQ BID by Pulmonary. Antibiotics include Zosyn 3.75 g IV TID (D6) for treatment of Serratia BAL culture. CBC WBC 13.5, RBC 3.78, Hg 8.4, Hct 27.6, MCV 73.1, Plt 645. BMP Cl 112, Cr 0.54. Mag 1.7. Vitals Signs: BP 131/88, HR 117, RR 31, T 99F, 100% on RA General: Ill appearing. NAD Derm: Warm, dry Head: Atraumatic, normocephalic, symmetric Eyes: Pinpoint pupils, right-sided gaze preference, upward gaze preference, no lid lag, anicteric sclera, bilateral periorbital edema Mouth: No lip lesion, mucus membranes moist Cardiovascular: S1S2 tachy, no murmur Lungs: Breath sounds only noted in left side Abdominal: Soft, nontender to palpation, no guarding, no appreciable organomegaly Ext: No gross muscle atrophy, right upper extremity edema, no contractures Neuro: Spontaneously moving left upper extremity and left lower extremity, follows simple commands, wiggles toes, very weakly squeezes fingers, no gag reflex, no cough with suctioning Psych: Non verbal Based on my assessment of this patient, this patient meets a high complexity level of care. Acute multifocal embolic ischemic strokes: ASA 81 mg PO QD. Lipitor 80 mg PO QHS. Lovenox 80 mg SUBCUT BID. No plans for immediate surgical intervention per Vascular. No plans for KAREN per Cardiology. Repeat CT done 07/07 shows no hemorrhagic conversion. Will need swallow eval and likely PEG on Thursday. Neurology on board. Acute encephalopathy due to above Bilateral carotid artery thrombosis stenosis: Management as above. Acute hypoxic respiratory failure requiring intubation likely due to acute stroke and inability to protect airway and right lung collapse Severe leukocytosis with concerns of PNA: BAL cultures growing Serratia. BCx and UCx negative. Continue Zosyn 3.75 g IV TID (D6). Diarrhea: C. diff ruled out. Thrombocytosis: Likely due to iron def. anemia. Microcytic anemia: Hg 8.4. No signs of active bleeding. Transfuse if Hg < 7. CODE STATUS: FULL CODE DVT Prophylaxis: Lovenox SQ GI Prophylaxis: Protonix 40 mg IV QD. Designated medical POA if patient is not able to make medical decisions for themselves: . I have reviewed the following application security consultant notes: Pulmonary. I have reviewed the results of the following tests: CBC, BMP, Mag. I have ordered the following tests: I have discussed the care of this patient with the following independent h istorian: MONTRELL. I have independently interpreted the following test below: I have discussed the management of this patient with the following physician: Objective - Vital Signs Vital signs: Vital Signs Temp 99.8 F H 07/10/24 08:00 Pulse 125 H 07/10/24 11:48 Resp 36 H 07/10/24 11:44 BP 116/90 07/10/24 11:00 Pulse Ox 100 07/10/24 11:00 FiO2 3 07/09/24 04:00 Intake & Output 07/09/24 07/10/24 07/10/24 18:59 06:59 18:59 Intake Total 603 1079 232 Output Total 2325 2195 410 Balance -1722 -1116 -178 Weight 78 kg 78.5 kg Intake: IV 463 539 72 Magnesium Sulfate-D5w Pmx 100 1 gm In Dextrose/Water 1 100ml.bag @ 100 mls/hr IVPB ONCE ONE Rx#: [id number] Magnesium Sulfate-D5w Pmx 100 1 gm In Dextrose/Water 1 100ml.bag @ 100 mls/hr IVPB Q1H [facility] Rx#: [id number] Piperacillin-Tazobactam 3 100 .375 gm In Sodium Chloride 0.9% 100 ml @ 25 mls/hr IVPB Q8H [facility] Rx#: [id number] Piperacillin-Tazobactam 3 100 .375 gm In Sodium Chloride 0.9% 100 ml @ 25 mls/hr IVPB Q8H [facility] Rx#: [id number] Potassium Chloride 20 meq 100 In Water For Injection 1 100ml.bag @ 50 mls/hr IVPB Q2H [facility] Rx#: [id number] Sodium Chloride 0.9% 1, 230 200 60 000 ml @ 20 mls/hr IV . Q24H [facility] Rx#:[id number] pressure bag 33 39 12 Tube Feeding 120 390 160 Other 20 150 Output: Urine 1925 2045 410 Stool 400 150 Other: Voiding Method Indwelling Catheter Indwelling Catheter Indwelling Catheter ABP, PAP, CO, CI - Last Documented Arterial Blood Pressure 118/76 - Labs CBC & Chem 7: 07/10/24 04:55 07/10/24 04:55 Labs: Abnormal Lab Results - Last 24 Hours (Table) 07/09/24 07/10/24 07/10/24 Range/Units 14:36 04:55 04:55 WBC 13.5 H (3.8-10.6) k/uL RBC 3.78 L (4.30-5.90) m/uL Hgb 8.4 L (13.0-17.5) gm/dL Hct 27.6 L (39.0-53.0) % MCV 73.1 L (80.0-100.0) fL MCH 22.1 L (25.0-35.0) pg MCHC 30.2 L (31.0-37.0) g/dL RDW 17.4 H (11.5-15.5) % Plt Count 645 H (150-450) k/uL Neutrophils # 11.4 H (1.3-7.7) k/uL Lymphocytes # 0.8 L (1.0-4.8) k/uL Potassium 3.3 L (3.5-5.1) mmol/L Chloride 112 H (98-107) mmol/L Creatinine 0.54 L (0.66-1.25) mg/dL POC Glucose (mg/dL) (70-110) mg/dL 07/10/24 Range/Units 11:21 WBC (3.8-10.6) k/uL RBC (4.30-5.90) m/uL Hgb (13.0-17.5) gm/dL Hct (39.0-53.0) % MCV (80.0-100.0) fL MCH (25.0-35.0) pg MCHC (31.0-37.0) g/dL RDW (11.5-15.5) % Plt Count (150-450) k/uL Neutrophils # (1.3-7.7) k/uL Lymphocytes # (1.0-4.8) k/uL Potassium (3.5-5.1) mmol/L Chloride (98-107) mmol/L Creatinine (0.66-1.25) mg/dL POC Glucose (mg/dL) 123 H (70-110) mg/dL
[2024-07-10 17:36] LABS: Glucose,Whole Blood 122 mg/dL (70-110)
[2024-07-10] MEDS: METOPROLOL TARTRATE 25 MG TAB PO SCH (20:37)
[2024-07-10] MEDS: IBUPROFEN 400 MG TAB PO PRN (23:44)
[2024-07-10 23:47] LABS: Magnesium 1.7 mg/dL (1.6-2.3); Potassium 3.7 mmol/L (3.5-5.1)
[2024-07-10 23:56] LABS: Glucose,Whole Blood 120 mg/dL (70-110)
[2024-07-11] MEDS: POTASSIUM BICARBONATE/CIT AC 20 MEQ TABLET.EFF NG-TUBE SCH (01:24)
[2024-07-11] MEDS: MAGNESIUM SULFATE-D5W PMX 1 GM in DEXTROSE/WATER 1 100ML.BAG IVPB ONE (01:24)
[2024-07-11 05:10] LABS: Anisocytosis Slight; Basophils % (A) 0 %; Eosinophils # (A) 0.1 k/uL (0-0.7); Eosinophils % (A) 1 %; HCT 27.4 % (39.0-53.0); HGB 8.2 gm/dL (13.0-17.5); Hypochromasia Marked; Lymphocytes # (A) 0.9 k/uL (1.0-4.8); Lymphocytes % (A) 6 %; MCH 21.9 pg (25.0-35.0); MCHC 29.8 g/dL (31.0-37.0); MCV 73.3 fL (80.0-100.0); Mean Platelet Volume 7.8; Microcytosis Moderate; Monocytes # (A) 0.9 k/uL (0-1.0); Monocytes % (A) 6 %; Neutrophils # (A) 11.9 k/uL (1.3-7.7); Neutrophils % (A) 86 %; Platelet Count 629 k/uL (150-450); Poikilocytosis Slight; RBC 3.74 m/uL (4.30-5.90); WBC 13.8 k/uL (3.8-10.6)
[2024-07-11 05:31] LABS: African American GFR (CKD) >90 (>60 ml/min/1.73 sqM); Anion Gap 1 mmol/L; Blood Urea Nitrogen 17 mg/dL (9-20); Calcium 8.3 mg/dL (8.4-10.2); Carbon Dioxide 29 mmol/L (22-30); Chloride 112 mmol/L (98-107); Glucose 113 mg/dL (74-99); Non-African American GFR(CKD) >90 (>60 ml/min/1.73 sqM); Potassium 4.1 mmol/L (3.5-5.1); Sodium 142 mmol/L (137-145)
--- NOTE | 2024-07-11 07:06 | P.PN ---
Subjective Progress Note Date: 07/11/24 68-year-old man with stage IV lung CA on immunotherapy, DM, HTN, HLD, recent upper extremity DVT on Eliquis, GERD, who presented to the ED with left-sided weakness and altered mental status. In the ED he underwent extensive evaluation. BP 135/98, HR 105, RR 18, 99% on RA. Patient was intubated in the ER for airway protection. Initial CT brain was negative. CBC, Coag panel, CMP significant for Hg 9.9, Hct 33.6, MCV 75.7, Plt 777, Na 132, bicarb 20, BUN 7, Cr 0.63, glu 121, alk phos 130, alb 2.9. Lactic acid 3. Trop < 0.012. Ammonia 9. CTA head and neck showed fibrofatty thrombus within the bilateral proximal internal carotid arteries creating 75% stenosis on the right and 90% stenosis in the left. CXR showed large R pleural effusion. Patient was not a candidate for TNK per interventional neurology who was contacted by ED. Vascular surgery and Neurology was consulted. Patient was started on ASA, Plavix, Lipitor and heparin infusion. Vascular surgery recommended transfer to tertiary care facility for thrombectomy. Patient's declined transfer at that time given the patient multiple cormorbidities. Repeat CT of the brain revealed multiple bilateral embolic infarcts. Cardiology was consulted for KAREN and recommended against the study due to no history of arrhythmia and known bilateral carotid artery stenosis and thrombus. He did undergo TTE however which showed preserved EF of 55% with no shunt. Patient did undergo bronchoscopy with BAL on 06/30 which was consistent with right lung collapse. BAL cultures grew Serratia and patient was started on Zosyn. Patient with foul smelling diarrhea with rectal tube in place, C. diff was negative. He was extubated successfully on 07/08. Started on Lasix 40 mg IV BID on 07/08 and he has been diuresing well. 07/11 Patient was seen and examined. 95% on RA. Neurologically unchanged. Able to follow simple commands. Maintained on Lovenox 80 mg SQ BID. Receiving Lasix 40 mg IV BID, 2.8L negative fluid balance over the past 24H. Antibiotics include Zosyn 3.75 g IV TID (D7) for treatment of Serratia BAL culture. Receiving feeds through NGT vital AF at 60 cc/hr. CBC, BMP significant for WBC 13.8, RBC 3.74, Hg 8.2, Hct 27.4, MCV 73.3, Plt 629, Cl 112, Cr 0.61, glu 113, Ca 8.3. Mag 2. CXR pending this morning. Vitals Signs: BP 84/55, HR 107, RR 33, T 97.5F, 95% on RA General: Ill appearing. NAD Derm: Warm, dry Head: Atraumatic, normocephalic, symmetric Eyes: Pinpoint pupils, right-sided gaze preference, upward gaze preference, no lid lag, anicteric sclera, bilateral periorbital edema Mouth: No lip lesion, mucus membranes moist Cardiovascular: S1S2 tachy, no murmur Lungs: Breath sounds only noted in left side, coarse BS, tachypneic Abdominal: Soft, nontender to palpation, no guarding, no appreciable organomegaly, rectal tube in place Ext: No gross muscle atrophy, right upper extremity edema, no contractures Neuro: Spontaneously moving left upper extremity and left lower extremity, follows simple commands, wiggles toes, very weakly squeezes fingers, no gag reflex, no cough with suctioning Psych: Non verbal Based on my assessment of this patient, this patient meets a high complexity level of care. Acute multifocal embolic ischemic strokes: ASA 81 mg PO QD. Lipitor 80 mg PO QHS. Lovenox 80 mg SUBCUT BID. No plans for immediate surgical intervention per Vascular. No plans for KAREN per Cardiology. Repeat CT done 07/07 shows no hemorrhagic conversion. Will need swallow eval and likely PEG. Neurology on board. Acute encephalopathy due to above Bilateral carotid artery thrombosis stenosis: Management as above. Tachycardia: Echo shows EF 55%. Metoprolol increased to 25 mg PO BID. Acute hypoxic respiratory failure requiring intubation likely due to acute stroke and inability to protect airway and right lung collapse: DuoNeb QID scheduled and Q2H PRN for SOB/wheezing. Elevate HOB with aspiration precautions. Patient is high risk for re-intubation. Severe leukocytosis with concerns of PNA: BAL cultures growing Serratia. BCx and UCx negative. Continue Zosyn 3.75 g IV TID (D7). Diarrhea: C. diff ruled out. Lomotil 1 tab PO Q6H PRN. Thrombocytosis: Likely due to iron def. anemia. Microcytic anemia: Hg 8.4. No signs of active bleeding. Transfuse if Hg < 7. Anxiety and Depression: Remeron 15 mg PO QHS. Diabetes mellitus: ISS and Accuchecks Q6H. Hypoglycemic precautions. Patient is high risk for re-intubation. Will need swallow eval and likely PEG. Prognosis is poor. CODE STATUS: FULL CODE DVT Prophylaxis: Lovenox SQ GI Prophylaxis: Protonix 40 mg IV QD. Designated medical POA if patient is not able to make medical decisions for themselves: . I have reviewed the following senior clinical consultant notes: Pulmonary. I have reviewed the results of the following tests: CBC, BMP, Mag. I have ordered the following tests: CXR pending this morning. Monitor electrolytes and renal function while on Lasix. I have discussed the care of this patient with the following independent historian: I have independently interpreted the following test below: I have discussed the management of this patient with the following physician: Objective - Vital Signs Vital signs: Vital Signs Temp 97.5 F L 07/11/24 00:00 Pulse 107 H 07/11/24 02:00 Resp 33 H 07/11/24 02:00 BP 84/55 07/11/24 02:00 Pulse Ox 95 07/11/24 02:00 FiO2 3 07/09/24 04:00 Intake & Output 07/10/24 07/10/24 07/11/24 06:59 18:59 06:59 Intake Total 1079 803 854 Output Total 2195 1455 880 Balance -1116 -652 -26 Weight 78.5 kg Intake: IV 539 203 334 Magnesium Sulfate-D5w Pmx 100 1 gm In Dextrose/Water 1 100ml.bag @ 100 mls/hr IVPB ONCE ONE Rx#: [id number] Magnesium Sulfate-D5w Pmx 100 1 gm In Dextrose/Water 1 100ml.bag @ 100 mls/hr IVPB ONCE ONE Rx#: [id number] Piperacillin-Tazobactam 3 100 .375 gm In Sodium Chloride 0.9% 100 ml @ 25 mls/hr IVPB Q8H [facility] Rx#: [id number] Piperacillin-Tazobactam 3 100 100 .375 gm In Sodium Chloride 0.9% 100 ml @ 25 mls/hr IVPB Q8H [facility] Rx#: [id number] Sodium Chloride 0.9% 1, 200 170 110 000 ml @ 20 mls/hr IV . Q24H [facility] Rx#:[id number] pressure bag 39 33 24 Tube Feeding 390 480 400 Other 150 120 120 Output: Urine 2045 1405 730 Stool 150 50 150 Other: Voiding Method Indwelling Catheter Indwelling Catheter Indwelling Catheter ABP, PAP, CO, CI - Last Documented Arterial Blood Pressure 94/55 - Labs CBC & Chem 7: 07/11/24 04:45 07/11/24 04:45 Labs: Abnormal Lab Results - Last 24 Hours (Table) 07/10/24 07/10/24 07/10/24 Range/Units 04:55 04:55 11:21 WBC 13.5 H (3.8-10.6) k/uL RBC 3.78 L (4.30-5.90) m/uL Hgb 8.4 L (13.0-17.5) gm/dL Hct 27.6 L (39.0-53.0) % MCV 73.1 L (80.0-100.0) fL MCH 22.1 L (25.0-35.0) pg MCHC 30.2 L (31.0-37.0) g/dL RDW 17.4 H (11.5-15.5) % Plt Count 645 H (150-450) k/uL Neutrophils # 11.4 H (1.3-7.7) k/uL Lymphocytes # 0.8 L (1.0-4.8) k/uL Chloride 112 H (98-107) mmol/L Creatinine 0.54 L (0.66-1.25) mg/dL POC Glucose (mg/dL) 123 H (70-110) mg/dL 07/10/24 07/10/24 Range/Units 17:34 23:55 WBC (3.8-10.6) k/uL RBC (4.30-5.90) m/uL Hgb (13.0-17.5) gm/dL Hct (39.0-53.0) % MCV (80.0-100.0) fL MCH (25.0-35.0) pg MCHC (31.0-37.0) g/dL RDW (11.5-15.5) % Plt Count (150-450) k/uL Neutrophils # (1.3-7.7) k/uL Lymphocytes # (1.0-4.8) k/uL Chloride (98-107) mmol/L Creatinine (0.66-1.25) mg/dL POC Glucose (mg/dL) 122 H 120 H (70-110) mg/dL
--- NOTE | 2024-07-11 08:05 | XR ---
EXAMINATION TYPE: XR chest 1V portable DATE OF EXAM: 07/11/2024 5:07 AM COMPARISON: 07/09/2024 CLINICAL INDICATION: Male, 68 years old with history of decreased o2 sat, , FINDINGS: NG tube remains in place. Ongoing white out of the right hemithorax. Mild hazy patchy densities left mid and lower lung similar to slightly increased. Right heart margin obscured by adjacent pleural par enchymal opacities. IMPRESSION: Ongoing complete white out of the right hemithorax. Some mild patchy densities on the left are simila r to slightly increased. [facility], , 07/11/2024 8:03 AM
--- NOTE | 2024-07-11 09:23 | P.PN ---
Subjective Progress Note Date: 07/11/24 Principal diagnosis: Carotid stenosis Patient is seen and examined today as a follow-up. He is sitting up in bed, overall obtunded appearing. Very lethargic. Continues with right sided for flaccidity of the upper and lower extremity. He was extubated over the weekend. He is currently on room air with oxygen saturation at 95% however had a large mucous plug through the night. He has a very poor gag reflex. NG tube in place for tube feedings. Objective - Vital Signs Vital signs: Vital Signs Temp 97.9 F 07/11/24 08:00 Pulse 110 H 07/11/24 08:30 Resp 34 H 07/11/24 08:00 BP 110/80 07/11/24 08:00 Pulse Ox 95 07/11/24 08:00 FiO2 3 07/09/24 04:00 Intake & Output 07/10/24 07/11/24 07/11/24 18:59 06:59 18:59 Intake Total 803 1319 172 Output Total 1455 1010 70 Balance -652 309 102 Weight 73.7 kg Intake: IV 203 516 26 Magnesium Sulfate-D5w Pmx 100 1 gm In Dextrose/Water 1 100ml.bag @ 100 mls/hr IVPB ONCE ONE Rx#: [id number] Piperacillin-Tazobactam 3 200 .375 gm In Sodium Chloride 0.9% 100 ml @ 25 mls/hr IVPB Q8H [facility] Rx#: [id number] Sodium Chloride 0.9% 1, 170 180 20 000 ml @ 20 mls/hr IV . Q24H [facility] Rx#:[id number] pressure bag 33 36 6 Tube Feeding 480 653 146 Other 120 150 Output: Urine 1405 860 70 Stool 50 150 Other: Voiding Method Indwelling Catheter Indwelling Catheter Indwelling Catheter ABP, PAP, CO, CI - Last Documented Arterial Blood Pressure 97/56 - Exam General appearance: The patient i obtunded appearing but arousable. HET: Head is normocephalic and atraumatic. Pinpoint pupils. Neck: Supple. Heart: Regular. Lungs: Equal expansion. Abdomen: Soft, nontender, nondistended. Extremities: Normal skin color and turgor. Bilateral upper extremity swelling, right greater than left. Neurological: Patient is obtunded but arousable. Right upper and lower extremities are flaccid. Left with minimal movement. - Labs CBC & Chem 7: 07/11/24 04:45 07/11/24 04:45 Labs: Abnormal Lab Results - Last 24 Hours (Table) 07/10/24 07/10/24 07/10/24 Range/Units 11:21 17:34 23:55 WBC (3.8-10.6) k/uL RBC (4.30-5.90) m/uL Hgb (13.0-17.5) gm/dL Hct (39.0-53.0) % MCV (80.0-100.0) fL MCH (25.0-35.0) pg MCHC (31.0-37.0) g/dL RDW (11.5-15.5) % Plt Count (150-450) k/uL Neutrophils # (1.3-7.7) k/uL Lymphocytes # (1.0-4.8) k/uL Chloride (98-107) mmol/L Creatinine (0.66-1.25) mg/dL Glucose (74-99) mg/dL POC Glucose (mg/dL) 123 H 122 H 120 H (70-110) mg/dL Calcium (8.4-10.2) mg/dL 07/11/24 07/11/24 Range/Units 04:45 04:45 WBC 13.8 H (3.8-10.6) k/uL RBC 3.74 L (4.30-5.90) m/uL Hgb 8.2 L (13.0-17.5) gm/dL Hct 27.4 L (39.0-53.0) % MCV 73.3 L (80.0-100.0) fL MCH 21.9 L (25.0-35.0) pg MCHC 29.8 L (31.0-37.0) g/dL RDW 17.0 H (11.5-15.5) % Plt Count 629 H (150-450) k/uL Neutrophils # 11.9 H (1.3-7.7) k/uL Lymphocytes # 0.9 L (1.0-4.8) k/uL Chloride 112 H (98-107) mmol/L Creatinine 0.61 L (0.66-1.25) mg/dL Glucose 113 H (74-99) mg/dL POC Glucose (mg/dL) (70-110) mg/dL Calcium 8.3 L (8.4-10.2) mg/dL Assessment and Plan Assessment: 1. Bilateral internal carotid artery stenosis with fibrofatty thrombus 2. Altered mental status changes, right parietal/temporal acute/subacute ischemia with a evolving bilateral ischemic CVAs 3. Occlusive right internal jugular vein DVT 4. Left distal subclavian and axillary veins positive for DVT 5. Stage IV lung cancer 6. Diabetes mellitus 7. Hypertension 8. Hyperlipidemia, 9. History of right upper extremity DVT on Lovenox Plan: Patient remains poor candidate for surgical intervention for internal carotid arteries. Will continue conservative medical management at this time. Will continue to follow recommendations from commercial horticulture instructor and neurologist. We will continue to evaluate neurological status and give recommendations along the way. No plans at this time for any vascular surgical intervention. Thank you for this consultation, we will continue to follow. The impression and plan of care has been dictated as directed. Dr. Mace I performed a history and examination of this patient, discussed the same with the dictator. I agree with the dictator's note ,documented as a scribe. Any additional findings or plans will be noted.
[2024-07-11 09:37] VITALS: BMI 23.3
[2024-07-11 11:25] LABS: Glucose,Whole Blood 126 mg/dL (70-110)
--- NOTE | 2024-07-11 12:02 | P.PN ---
Subjective Progress Note Date: 07/11/24 Principal diagnosis: Acute hypoxic respiratory failure secondary to poor neurological status/CVA/inability to protect airways requiring intubation on 06/30/2024 and stage IV lung cancer 68-year-old black male with a history of multiple medical problems including advanced lung cancer, right pleural effusion, hyperlipidemia, hypertension, GERD, type 2 diabetes. The patient presented to the emergency department, at about 8:00 PM on June 30, with strokelike symptoms. He apparently was found to have slurred speech. He apparently became incoherent, and was apparently str uggling to move the left side of his body. EMS was called and he was brought into the emergency department. The patient apparently was not able to protect his airway, and required intubation and mechanical ventilation. I did speak to Dr. Rodriguez in the emergency department. The patient is transferred to the intensive care unit, for further monitoring and management. The patient's drug screen was positive for opiates and cocaine. That may have had some effect on his neurologic issues. He is currently on volume assist-control, rate 20, tidal volume 500, FiO2 40%, PEEP of 5. Blood gases initially showed a pO2 that was greater than 420, pCO2 29, pH of 7.49. The patient is on propofol at 30 mcg/kg/min, saline at 120 cc an hour. When the patient came to the intensive care unit, we placed a right radial art line, a left subclavian triple-lumen catheter, and because his endotracheal tube was defective, we replaced the endotracheal tube with a #8 endotracheal tube. Current laboratory data includes a white count of 8.6, hemoglobin 7.8, hematocrit 26.6, platelet count of 508,000. Sodium 135, potassium 3.2, chlorides 108, CO2 21, BUN 5, and creatinine 0.58. Calcium 7.5, magnesium 1.5. Albumin 2. Urine is negative. Drug screen was positive for opiates, oxycodone, and cocaine. Viral studies were negative. Chest x-ray showed an opacified right hemithorax. Progress note dated July 02, 2024. 68-year-old black male seen today in room 255. His , flew up from [place] last night, and is at the bedside. The patient is currently on volume assist- control, rate 20, tidal volume 500, FiO2 40%, PEEP of 5. Blood gases show pO2 172, pCO2 25, pH of 7.48. The FiO2 was reduced down to 30%. The patient is on propofol at 20 mcg/kg/min, norepinephrine at 33 mcg/min, heparin via weight- based protocol, and saline at 120 cc an hour. The patient CT scan of the brain revealed a an evolving CVA, involving the right side, with left-sided weakness. The patient will have tube feeds started. In addition, chest x-ray reveals an opacified right hemithorax, and bronchoscopy will be done this morning. White count 15.2, hemoglobin 8.8, hematocrit 29.1, platelet count of 659,000. PT 12.8, INR 1.2. Sodium 137, potassium 3.6, chlorides 111, CO2 19, BUN 4, creatinine 0.47. Glucose was 164. Calcium 7.6. Magnesium 1.6. Chest x-ray reveals a right opacified hemithorax. CT scan of the reveals acute/subacute ischemia in the right parietotemporal area, and right frontal lobe. Progress note dated July 03, 2024. 68-year-old black male seen again in room 255. The patient has a history of lung cancer, advanced. The patient presented with neurologic findings, and was found to have a right sided CVA, and more recently, a another CT scan of the brain revealed additional damage to the left side of his brain. The patient remains on the ventilator. He is on volume assist-control, rate 20, tidal volume 500, 30% FiO2, PEEP of 5. Blood gases show pO2 117, pCO2 of 28, pH of 7.44. The patient is on norepinephrine at 33 mcg/min, propofol at 20 mcg/kg/min, 0.9 to 120 cc an hour, and heparin via weight-based protocol. The patient is getting vital high-protein at 10 cc an hour. Repeat brain CT showing extension, was done yesterday, July 02. He now has bilateral ischemic strokes. The patient only moves his left lower extremity. Because of his higher doses of norepinephrine, will add vasopressin. His procalcitonin level was within normal range. We will check a cortisol level for adrenal insufficiency. Chest x-ray shows an opacified right chest. Bronchoscopy yesterday revealed significant secretions and disease, in the right lower lobe. White count 30.7, hemoglobin 8.3, hematocrit 28.2, platelet count 611,000. PTT is 42.7. Sodium 137, potassium 3.5, chlorides 116, CO2 17, BUN 4, creatinine 0.40. Glucose 131. Cultures thus far negative. Procalcitonin level is normal. Chest x-ray is unchanged. 07/04/2024, the patient is being seen for a follow-up. This morning, the patient remains sedated on propofol which is running at 20 mcg/kg/min. Remains intubated on the mechanical ventilator. He is on assist-control mode of mechanical ventilation at rate of 20, tidal volume of 500, FiO2 of 30% with a PEEP of 5. The peak airway pressure is 19. Chest x-ray from today shows complete opacification of the right lung. ET tube is in a good location. Left lung is relatively clear and there is a small left-sided pleural effusion. The blood gases from today showed a pH of 7.43 with a pCO2 of 30 and pO2 of 109. The patient has limited respiratory secretions. There is considerable amount of air leak around the ET tube and a cuff is probably blown. The bronchoscopy was done and the cultures were essentially negative. The patient is covered empirically with IV Zosyn. He remains hypotensive and he remains on norepinephrine which is running at 0.25 mcg/kg/min. IV fluids are running at 125 cc an hour of normal saline. Patient remains on IV heparin. The net fluid balance over the past 24 hours and has been in the order of 2.7 L. Blood work from today shows a white cell count of 26, hemoglobin of 8 and a platelet count of 586. Sodium is at 136, potassium is at 3.6, chloride is 1 of 15 with a bicarb of 19. BUN is 5 with a creatinine of 0.44. LFTs are essentially within normal limits. Serum cortisol is 22.3. Blood culture is negative. Bronchoscopy and the bronchoalveolar lavage there is also negative. Enteral feeding is currently on hold due to high residuals. Prior to that, the patient was on vital high-protein at the rate of 10 cc an hour. 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 He has minimal withdrawal in his left upper extremity and lower extremities and does not move his right side. Negative for Babinski sign on the left and the right foot is equivocal. Pupils are pinpoint and unreactive and the patient remains on propofol. Neurology is on the case. Vascular surgery has been consulted regarding the bilateral carotid artery disease. No plans to do a KAREN at this point in time. 07/05/2024, the patient is being seen for a follow-up. Remains intubated on mechanical ventilator. Earlier this morning, the patient was taken off sedation and the brief neurologic examination that was done revealed that the patient was not able to move his right upper and right lower extremity. He was able to move his fingers and toes upon demand on the left side. Extremely weak cough. Unable to raise his head of the bed. Poor coughing and gagging reflex at this point in time. He does have a preferential gaze in his looking into the left upper corner and the pupils are equal and reactive to light around 2 to 3 mm in size. Repeat carotid Doppler was done and the patient was found to have bilateral thrombus visualized in the bilateral internal carotid arteries that appear acute in nature and moving during real-time examination. It seems to be the clots are larger in the left internal carotid artery. There is also occlusive right internal jugular vein DVT. On examination, the patient was also noted to have swelling in his left upper extremity. Ultrasound Doppler of the left upper extremity revealed a positive DVT in the left distal subclavian and axillary veins. The patient remains on IV heparin. The patient remains on mechanical ventilator. This morning, he is on assist-control mode with rate of 20, tidal volume of 500, FiO2 of 30% with a PEEP of 5. The blood gas showed a pH of 7.46 with a pCO2 of 28 and pO2 119. Fluid balance is +1 L over the past 24 hours. The patient was taken off pressors as of yesterday morning. He remains on normal saline which is running at 120 cc an hour and the patient is also on vital high-protein for enteral feeding at rate of 30 cc an hour. Chest x-ray from today shows volume loss in addition to complete opacification of the right lung. Left lung remains essentially clear. Tube is in a good location. Blood work from today shows a white cell count of 14 with a hemoglobin of 8.3 and a platelet count of 533. The PTT is therapeutic. BUN is 6 with a creatinine of 0.4 and sodium is at 138 and a bicarb deficit 18. LFTs are essentially within normal limits. The bronchoscopy endobronchial lavage that was done earlier yielded Serratia marcescens and the patient remains on IV Zosyn. On 07/06/2024, the patient remains intubated on the mechanical ventilator. Earlier this morning, the patient was on propofol that was running at 25 mcg/kg/min. Subsequently, the propofol was discontinued at around 7 AM. The patient is arousable. He is following simple commands. Extremely weak. Unable to raise his head. Unable to cough. He is moving his left upper and left lower extremity. 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 There is flaccid paralysis on the right side. Meanwhile, the patient is having increased respiratory secretions. The patient is currently on mechanical ventilator assist-control mode with rate of 20, tidal volume of 500, FiO2 30% with a PEEP of 5. The chest x-ray shows complete opacification of the right lung, patchy infiltration in the left infrahilar and left lower lobe area is se en in the patient's sputum sample was positive for Serratia marcescens. The patient remains on broad-spectrum antibiotics and the patient remains on IV Zosyn. Still his blood gases show a pH of 7.49 with a pCO2 of 27 and pO2 112. Normal saline was running at the rate of 40 cc an hour. The patient is currently off norepinephrine. The patient remains on IV heparin. The patient is on vital high-protein which is running at a rate of 50 cc an hour for enteral feeding and nutritional support. WBC count of 10.5 with a hemoglobin of 8 and a platelet count of 508. The sodium is at 139, potassium is at 3.3, bicarb is at 19, BUN is at 8 with a creatinine of 0.4. He was having some liquidy stool and stool was checked for C. difficile and it came back negative. On 07/07/2024, patient's condition essentially unchanged. Patient is currently on low-dose Precedex at 0.3 mcg/kg/h. More sedated this morning. Was unable to follow any commands. Will gradually wean off the Precedex and reevaluate his mentation. A follow-up CAT scan of the brain was done today and the patient was found to have no evidence of any intracranial bleed. Nevertheless, there was multiple infarcts and the patient had evolving acute/subacute infarct involving the left head of the caudate nucleus and left carlos radiata extending inferiorly into the posterior basal ganglia. In addition, there was acute infarct in the inferior right parietal region extending to the posterior superior temporal lobe. There was also persistent subacute infarct hide posterior bilateral frontal lobes and there is also background mild to moderate continuation and periventricular white matter changes. There is also possibly evolution of an infarct in the right cerebellar region. The patient remains on IV heparin. Hemodynamically stable. Remains on the mechanical ventilator assist-control mode with rate of 20, tidal volume of 500, FiO2 30% with a PEEP of 5. Blood gas shows a pH of 7.47 with a pCO2 of 23 and pO2 116. Not a candidate for extubation due to his significant neurologic impairment and poor ability to maintain his airway patency and poor coughing. The patient remains on normal saline at rate of 50 cc an hour. The patient is on vital high-protein at rate of 70. He was having diarrhea and stool for C. difficile was negative. WBC count is at 9.9 with a hemoglobin 7.9 and a platelet count of 495. BUN is 11 with a creatinine of 0.5. Sodium levels at 138 and a potassium level is at 3.7. Chloride is 117. Otherwise, no other significant events over the past 24 hours. On 07/08/2024, the patient is on Precedex running at 0.4 mcg/kg/h. Arousable, following simple commands, motor function left upper and left lower extremity is improved. The patient is on normal citrate of 50 cc an hour. The patient is on assist-control mode of mechanical ventilation at rate of 20, tidal volume of 500, FiO2 30% with a PEEP of 5. Remains on IV Zosyn regarding Serratia marcescens in his lungs and the patient is stable left perihilar/infrahilar and left lower lobe pulmonary filtrate. Right lung remains completely opacified. The patient is known to have stage IV pulm adenocarcinoma. The blood gas from today showed a pH of 7.47 with a pCO2 28 and a pO2 of 100. Fluid balance is +2.8 L over the past 24 hours and the patient is on vital high-protein at rate of 70 cc an hour. Diarrhea has subsided. The patient's white cell count of 9.6 with a hemoglobin of 7.5 and a platelet count of 447. The BUN is 16 with a creatinine of 0.47 and a sodium levels at 138 and a potassium level 3.7. I had a lengthy discussion with the . The is not interested in end-of-life care. The patient's is interested in ongoing respiratory care and tracheostomy if needed. I gave the option of extubation and evaluating the patient's respiratory status. Will reintubate if the patient fails extubation and we will going to consider tracheostomy at that point in time. The was agreeable to that. Based on all this, I am going to wean the patient off Precedex and extubate the patient monitoring very closely here in the intensive care unit. He was also started on Lasix 40 mg IV every 12 hours and the patient was noted to be in a positive fluid balance. On 07/09/2024, the patient remains extubated and the patient is currently on 2 L of oxygen by nasal cannula. Lethargic, arousable, profoundly weak, flaccid paralysis on the right, significant weakness on the left. Weak cough. No significant respiratory secretions. No respiratory distress. He is in sinus tachycardia. He is on normal saline at rate of 50 cc an hour. IV fluids will be switched to KVO. He is on Lasix 40 mg every 12 hours and the patient is negative for balance of 3.2 L over the past 24 hours. He is having diarrhea. Enteral feeding for nutritional support is being continued and the patient has an NG tube in place. Chest x-ray shows patchy infiltration in the left perihilar/left lower lobe area. Right lung is completely opacified. Remains on IV Zosyn. Afebrile. White cell count 16 with a hemoglobin 8.4 and a platelet count of 619. Electrolytes are all stable, BUN is 40 with a creatinine of 0.5. On 09/10/2023, the patient is on room air oxygen. He seems to be quite lethargic. Neurologically unchanged. Absent motor function in the right upper and right lower extremity. Minimal activity on the left. Continues to have a weak cough. NG tube in place and the patient continues to receive vital AF at rate of 40 cc an hour. He is having diarrhea and the fecal management system was applied. He is receiving Lomotil in the stool for C. difficile has been negative. He is on IV Lasix 40 mg every 12 hours and the fluid balance is -3.9 L over the past 24 hours and the patient shows some improvement in the lower extremity and upper extremity edema. He is currently on the Lovenox 80 mg SQ every 12 hours. Remains on IV Zosyn. No chest x-ray from today. Chest x-ray from yesterday shows opacification of the right lung with some limited infiltration of the left perihilar and left lower lobe. No significant respiratory secretions. Remains slightly tachycardic currently on metoprolol 12.5 mg p.o. twice a day.Labs were noted. The white cell count is at 13 with a hemoglobin of 8.4 and a platelet count of 645. BUN is 12 with a creatinine of 0.5. Potassium is at 4.1 and sodium is at 140. Patient was seen today on 07/11/2024, patient remains in the ICU, he has right- sided paralysis, he is on room air, does not seem to be in any distress, receiving vital AF at 73 cc/h, chest x-ray continues to show significant opacification of the right lung, suspect this is secondary to endobronchial malignancy involving right mainstem bronchus and right lower lobe as well as right middle lobe. Patient is marginal at best continues to have a weak cough, nasogastric tube is in place, no more diarrhea, patient does have a fecal system management for diarrhea, C. difficile screening was negative. Remains on Lasix, remains on Lovenox 80 mg subcu every 12 hours is also on Zosyn, chest x-ray is showing no change, continues to have opacified right lung. Left perihilar infiltrate involving mostly lingula and left lower lobe. Continues to have WBC count of 13.8 hemoglobin is 8.2 electrolytes are normal renal profile is normal Objective - Vital Signs Vital signs: Vital Signs Temp 97.9 F 07/11/24 08:00 Pulse 116 H 07/11/24 11:26 Resp 30 H 07/11/24 11:00 BP 104/72 07/11/24 11:00 Pulse Ox 97 07/11/24 11:00 FiO2 3 07/09/24 04:00 Intake & Output 07/10/24 07/11/24 07/11/24 18:59 06:59 18:59 Intake Total 803 1319 430 Output Total 1455 1010 905 Balance -652 309 -475 Weight 73.7 kg 73.7 kg Intake: IV 203 516 65 Magnesium Sulfate-D5w Pmx 100 1 gm In Dextrose/Water 1 100ml.bag @ 100 mls/hr IVPB ONCE ONE Rx#: [id number] Piperacillin-Tazobactam 3 200 .375 gm In Sodium Chloride 0.9% 100 ml @ 25 mls/hr IVPB Q8H [facility] Rx#: [id number] Sodium Chloride 0.9% 1, 170 180 50 000 ml @ 20 mls/hr IV . Q24H [facility] Rx#:[id number] pressure bag 33 36 15 Tube Feeding 480 653 365 Other 120 150 Output: Urine 1405 860 905 Stool 50 150 Other: Voiding Method Indwelling Catheter Indwelling Catheter Indwelling Catheter ABP, PAP, CO, CI - Last Documented Arterial Blood Pressure 106/66 - Exam General: Chronically ill looking 68-year-old male Derm: Warm, dry Head: Atraumatic, normocephalic, symmetric Eyes: PERRLA, EOMI, nonicteric, right-sided gaze preference is noted, upward gaze is also noted. Minimal periorbital edema noted. Mouth: Moist mucous membranes, Cardiovascular: Distant S1-S2, no S3 gallop, no murmur. Lungs: Coarse of breath sounds on the left side, diminished on the right side. Abdominal: Soft nontender no MAG no rebound no guarding Ext: No clubbing, trace of edema noted in the right upper extremity, no cyanosis. Neuro: Nonverbal right side is paralyzed including able to move left side. Follows simple commands, wiggles toes, very weakly squeezes fingers, no gag reflex, no cough with suctioning Psych: Not fully assessed - Labs CBC & Chem 7: 07/11/24 04:45 07/11/24 04:45 Labs: Abnormal Lab Results - Last 24 Hours (Table) 07/10/24 07/10/24 07/11/24 Range/Units 17:34 23:55 04:45 WBC 13.8 H (3.8-10.6) k/uL RBC 3.74 L (4.30-5.90) m/uL Hgb 8.2 L (13.0-17.5) gm/dL Hct 27.4 L (39.0-53.0) % MCV 73.3 L (80.0-100.0) fL MCH 21.9 L (25.0-35.0) pg MCHC 29.8 L (31.0-37.0) g/dL RDW 17.0 H (11.5-15.5) % Plt Count 629 H (150-450) k/uL Neutrophils # 11.9 H (1.3-7.7) k/uL Lymphocytes # 0.9 L (1.0-4.8) k/uL Chloride (98-107) mmol/L Creatinine (0.66-1.25) mg/dL Glucose (74-99) mg/dL POC Glucose (mg/dL) 122 H 120 H (70-110) mg/dL Calcium (8.4-10.2) mg/dL 07/11/24 07/11/24 Range/Units 04:45 11:24 WBC (3.8-10.6) k/uL RBC (4.30-5.90) m/uL Hgb (13.0-17.5) gm/dL Hct (39.0-53.0) % MCV (80.0-100.0) fL MCH (25.0-35.0) pg MCHC (31.0-37.0) g/dL RDW (11.5-15.5) % Plt Count (150-450) k/uL Neutrophils # (1.3-7.7) k/uL Lymphocytes # (1.0-4.8) k/uL Chloride 112 H (98-107) mmol/L Creatinine 0.61 L (0.66-1.25) mg/dL Glucose 113 H (74-99) mg/dL POC Glucose (mg/dL) 126 H (70-110) mg/dL Calcium 8.3 L (8.4-10.2) mg/dL Assessment and Plan Assessment: Impression: Acute respiratory failure, requiring intubation/mechanical ventilation, secondary to poor neurologic status secondary to CVA, and inability to protect airway, 06/30/2024 Right parietal/temporal acute/subacute ischemic CVA, with evolving bilateral ischemic CVAs. Most recent CAT scan of the brain on 07/02/2024 shows evolving multifocal acute/subacute CVA and the patient was found to have multiple scattered hypoattenuating areas throughout the brain with miranda/white matter loss. stage IV lung cancer, the patient is known to have pulm adenocarcinoma the patient has been receiving Tabrecta on outpatient basis and his treatment was essentially to [facility]. He is known to have chronic volume loss and a chronic right-sided pleural effusion. The mass in his right upper lobe/hilum was causing right upper lobe bronchus and the right lower lobe bronchus and the patient has developed chronic right-sided pleural effusion/atelectasis which has remained unchanged on serial x-rays. Chronic persistent right-sided pleural effusion, with the possibility of postobstructive pneumonia involving the right and the left lower lobe pneumonia and the patient is currently on IV Zosyn. Ultrasound was reviewed, could not perform right-sided thoracentesis Right IJ DVT Left axillary and subclavian vein DVT and the patient has a subclavian triple- lumen catheter in place on the left Hypertension Hyperlipidemia Diabetes mellitus type 2 Polysubstance abuse including cocaine Acute leukocytosis Anemia of chronic disease Acid reflux Diarrhea, stool for C. difficile negative. Recommendation: Continue Lovenox 80 mg subcu every 12 hours Continue Zosyn Continue diuretics/Lasix Patient is not requiring any pressors at this point. Patient is not a candidate for any surgical intervention Continue GI prophylaxis/Protonix Continue aspirin Remains very high risk for reintubation Overall prognosis extremely poor and guarded Need to discuss CODE STATUS with family especially with poor prognosis. Will continue to follow Time with Patient: Less than 30
--- NOTE | 2024-07-11 12:59 | CT ---
EXAMINATION TYPE: CT brain wo con CT DLP: 1133.4 mGycm, Automated exposure control for dose reduction was used. DATE OF EXAM: 07/11/2024 12:47 PM COMPARISON: Multiple CT Brain with most recent 07/07/2024. CLINICAL INDICATION:Male, 68 years old with history of stroke, ICU patient, ams. Possible stroke TECHNIQUE: Brain: Multiple axial CT images of the brain were obtained without IV contrast. . Coronal and sagitta l reformats reviewed. FINDINGS: Brain: Extra-axial spaces: No abnormal extra-axial fluid collections. Ventricular system: Within normal limits Cerebral parenchyma: No acute intraparenchymal hemorrhage. Redemonstration of evolving subacute infa rct involving the left head of the caudate nucleus and left carlos radiata extending inferiorly into the posterior basal ganglia. Additional involving subacute infarct involving the inferior right parie annika region extending into the posterior superior temporal lobe. Persistent subacute infarct involving the high posterior bilateral frontal lobes. Additional subacute infarct involving the right caudate head nucleus. Patchy mild to moderate low attenuation within the periventricular white matter redemon strated. New region of miranda-white differentiation loss of hypoattenuation within the high right parie annika lobe (series 2032, image 40). Cerebellum: Unremarkable. Mass effect: No evidence of midline shift. Intracranial vasculature: unremarkable Soft tissues: Normal. Calvarium/osseous structures: No depressed skull fracture. Paranasal sinuses and mastoid air cells: The mastoid air cells are clear. Left sphenoid sinus 1.4 cm mucous retention cyst. Visualized orbits: Orbital contents are intact. Other: Partial visualization of NG tube. IMPRESSION: New acute/subacute infarct involving the high right parietal lobe. Redemonstration of multiple bilate ral evolving subacute infarcts. No acute hemorrhage or midline shift. A [place] critical message alert has been initiated for Sharron Faye MD via the [email or web address] Critical Results System on 07/11/2024 12:56 PM. This message alert has been sent to Sharron Henry od, MD via the preferences provided by the clinician for the receipt of Radiology Critical Findings. Message ID [id number]. [facility], , 07/11/2024 12:56 PM
--- NOTE | 2024-07-11 14:07 | P.PN ---
Subjective Progress Note Date: 07/11/24 I am following-up seeing the patient. He was last seen by Dr. Mcfadden on 07/08/2024. Please refer to his notes for further details. Objective - Vital Signs Vital signs: Vital Signs Temp 98.4 F 07/11/24 12:00 Pulse 118 H 07/11/24 13:00 Resp 25 H 07/11/24 13:00 BP 111/66 07/11/24 13:00 Pulse Ox 94 L 07/11/24 12:00 FiO2 3 07/09/24 04:00 Intake & Output 07/10/24 07/11/24 07/11/24 18:59 06:59 18:59 Intake Total 803 1319 656 Output Total 1455 1010 1125 Balance -652 309 -469 Weight 73.7 kg 73.7 kg Intake: IV 203 516 151 Magnesium Sulfate-D5w Pmx 100 1 gm In Dextrose/Water 1 100ml.bag @ 100 mls/hr IVPB ONCE ONE Rx#: [id number] Piperacillin-Tazobactam 3 200 .375 gm In Sodium Chloride 0.9% 100 ml @ 25 mls/hr IVPB Q8H [facility] Rx#: [id number] Sodium Chloride 0.9% 1, 170 180 130 000 ml @ 20 mls/hr IV . Q24H [facility] Rx#:[id number] pressure bag 33 36 21 Tube Feeding 480 653 505 Other 120 150 Output: Urine 8119 985 6387 Stool 50 150 Other: Voiding Method Indwelling Catheter Indwelling Catheter Indwelling Catheter ABP, PAP, CO, CI - Last Documented Arterial Blood Pressure 105/64 - Exam General: Lying in bed and does not appear in acute distress. Neuro: Very limited. Patient is severely drowsy but briefly open his eyes to verbal stimuli. Patient is not following commands or verbalizing. Cecelia gaze is midline and at times upward and midline. He moves his head [id number] spontaneously. He moves his left upper extremity spontaneously above gravity - Labs CBC & Chem 7: 07/11/24 04:45 07/11/24 04:45 Labs: Abnormal Lab Results - Last 24 Hours (Table) 07/10/24 07/10/24 07/11/24 Range/Units 17:34 23:55 04:45 WBC 13.8 H (3.8-10.6) k/uL RBC 3.74 L (4.30-5.90) m/uL Hgb 8.2 L (13.0-17.5) gm/dL Hct 27.4 L (39.0-53.0) % MCV 73.3 L (80.0-100.0) fL MCH 21.9 L (25.0-35.0) pg MCHC 29.8 L (31.0-37.0) g/dL RDW 17.0 H (11.5-15.5) % Plt Count 629 H (150-450) k/uL Neutrophils # 11.9 H (1.3-7.7) k/uL Lymphocytes # 0.9 L (1.0-4.8) k/uL Chloride (98-107) mmol/L Creatinine (0.66-1.25) mg/dL Glucose (74-99) mg/dL POC Glucose (mg/dL) 122 H 120 H (70-110) mg/dL Calcium (8.4-10.2) mg/dL 07/11/24 07/11/24 Range/Units 04:45 11:24 WBC (3.8-10.6) k/uL RBC (4.30-5.90) m/uL Hgb (13.0-17.5) gm/dL Hct (39.0-53.0) % MCV (80.0-100.0) fL MCH (25.0-35.0) pg MCHC (31.0-37.0) g/dL RDW (11.5-15.5) % Plt Count (150-450) k/uL Neutrophils # (1.3-7.7) k/uL Lymphocytes # (1.0-4.8) k/uL Chloride 112 H (98-107) mmol/L Creatinine 0.61 L (0.66-1.25) mg/dL Glucose 113 H (74-99) mg/dL POC Glucose (mg/dL) 126 H (70-110) mg/dL Calcium 8.3 L (8.4-10.2) mg/dL Assessment and Plan Assessment: This is a 68-year-old gentleman who presents to the emergency department via EMS because of left-sided weakness dysarthria, then became unresponsive with left gaze deviation. Symptoms began yesterday at 2 PM that was noted by his cousin then he was taken to a doctor's appointment at 6 3 that is when his left-sided weakness and other symptoms happened. His urine drug screen was positive for cocaine, oxycodone and opiates. His CT angiography shows significant bilateral CTA stenosis Multifocal ischemic stroke and it seems embolic in nature. On examination is limited but has spontaneous movement of the left upper extremity and plegic over the right side. Episode of unresponsiveness due to multifactorial could be due to above as well as polysubstance abuse Significant left ICA stenosis, the right is 75% stenosis in the left is 90% stenosis on CT angiography. This is symptomatic. History is advanced stage IV lung cancer History of recurrent right-sided pleural effusion Hypertension History of hyperlipidemia Underlying history of diabetes mellitus Polysubstance abuse Plan: Patient is on aspirin 81 mg. Patient is also on Lovenox 80 mg every 12 hours. Patient is on Lipitor and milligrams daily. Dr. Mcfadden recommended a repeat CT of the head today but was not ordered so I ordered a repeat CT today. Vascular surgery is on board regarding the significant carotid stenosis bilaterally and I spoke with vascular surgery N.P. and stated no surgical intervention as an inpatient and the likely perform surgical intervention as an outpatient on the right first especially since he has movement over the left side to preserve the movement on left side. I s Continue neurochecks Cardiac monitoring Cardiology was consulted and they did not feel KAREN was needed because of significant carotid stenosis. PT, OT and [facility] are consulted Will defer the rest of the medical management to primary other specialist For DVT prophylaxis On loveonx. Dr. Barbour will resume neurology service tomorrow A.M. Time with Patient: Less than 30
[2024-07-11 17:48] LABS: Glucose,Whole Blood 113 mg/dL (70-110)
[2024-07-11 23:36] LABS: Glucose,Whole Blood 117 mg/dL (70-110)
[2024-07-12 05:44] LABS: Anisocytosis Slight; Basophils % (A) 0 %; Eosinophils # (A) 0.1 k/uL (0-0.7); Eosinophils % (A) 1 %; HCT 28.6 % (39.0-53.0); HGB 8.2 gm/dL (13.0-17.5); Hypochromasia Marked; Lymphocytes % (A) 6 %; MCHC 28.4 g/dL (31.0-37.0); MCV 73.9 fL (80.0-100.0); Mean Platelet Volume 8.9; Microcytosis Moderate; Monocytes # (A) 0.7 k/uL (0-1.0); Monocytes % (A) 4 %; Neutrophils # (A) 14.5 k/uL (1.3-7.7); Neutrophils % (A) 88 %; Platelet Count 629 k/uL (150-450); RBC 3.87 m/uL (4.30-5.90); WBC 16.5 k/uL (3.8-10.6)
[2024-07-12 05:55] LABS: African American GFR (CKD) >90 (>60 ml/min/1.73 sqM); Anion Gap 3 mmol/L; Blood Urea Nitrogen 21 mg/dL (9-20); Calcium 8.4 mg/dL (8.4-10.2); Carbon Dioxide 28 mmol/L (22-30); Chloride 112 mmol/L (98-107); Glucose 110 mg/dL (74-99); Magnesium 1.8 mg/dL (1.6-2.3); Non-African American GFR(CKD) >90 (>60 ml/min/1.73 sqM); Potassium 3.7 mmol/L (3.5-5.1); Sodium 143 mmol/L (137-145)
[2024-07-12 05:59] LABS: Glucose,Whole Blood 118 mg/dL (70-110)
[2024-07-12 06:07] LABS: Glucose,Whole Blood 113 mg/dL (70-110)
[2024-07-12] MEDS: POTASSIUM BICARBONATE/CIT AC 20 MEQ TABLET.EFF NG-TUBE SCH ×3 (06:18→17:28)
[2024-07-12] MEDS: MAGNESIUM SULFATE-D5W PMX 1 GM in DEXTROSE/WATER 1 100ML.BAG IVPB ONE (08:20)
--- NOTE | 2024-07-12 08:39 | XR ---
EXAMINATION TYPE: XR chest 1V portable DATE OF EXAM: 07/12/2024 8:31 AM COMPARISON: 07/11/2024 CLINICAL INDICATION: Male, 68 years old with history of shortness of breath, assess lungs, , FINDINGS: Right heart margin remains secured by Desmond pleural-parenchymal opacity and ongoing white out right h emithorax. NG tube in place. Mild patchy density at the left lower lung remains. Prominent air disten tion of the stomach remains. IMPRESSION: 1. Ongoing white out right hemithorax. 2. Ongoing patchy opacities left base. 3. Similar prominent air distention of the stomach. [facility], , 07/12/2024 8:37 AM
--- NOTE | 2024-07-12 09:04 | P.PN ---
Subjective Progress Note Date: 07/12/24 Principal diagnosis: Carotid stenosis Patient is seen and examined today as a follow-up. He remains in the ICU. He had a repeat CT of the brain yesterday that shows a new acute/subacute affecting the high right parietal lobe with redemonstration of multiple infarcts. Patient has a fever this morning with a temp of 100.0. He is Wagner and tachypneic throughout the night. Nursing is reporting 500 mL residual from NG tube. Patient is alert and blinking his eyes. Some minimal movement on the left upper and lower extremity. Patient still has poor gag reflex. Objective - Vital Signs Vital signs: Vital Signs Temp 100.0 F H 07/12/24 08:00 Pulse 124 H 07/12/24 08:06 Resp 44 H 07/12/24 08:00 BP 108/75 07/12/24 08:00 Pulse Ox 100 07/12/24 08:00 FiO2 3 07/09/24 04:00 Intake & Output 07/11/24 07/12/24 07/12/24 18:59 06:59 18:59 Intake Total 1121 1186 93 Output Total 1315 1710 30 Balance -194 -524 63 Weight 73.7 kg 74.7 kg Intake: IV 266 256 23 Sodium Chloride 0.9% 1, 230 220 20 000 ml @ 20 mls/hr IV . Q24H [facility] Rx#:[id number] pressure bag 36 36 3 Tube Feeding 855 840 70 Other 90 Output: Urine 1315 1210 30 Stool 500 Other: Voiding Method Indwelling Catheter Indwelling Catheter ABP, PAP, CO, CI - Last Documented Arterial Blood Pressure 107/66 - Exam General appearance: The patient i obtunded appearing but arousable. HET: Head is normocephalic and atraumatic. Pinpoint pupils. Neck: Supple. Heart: Regular. Lungs: Equal expansion. Abdomen: Soft, nontender, nondistended. Extremities: Normal skin color and turgor. Bilateral upper extremity swelling, right greater than left. Neurological: Patient is obtunded but arousable. Right upper and lower extremities are flaccid. Left with minimal movement. - Labs CBC & Chem 7: 07/12/24 05:32 07/12/24 05:32 Labs: Abnormal Lab Results - Last 24 Hours (Table) 07/11/24 07/11/2424 Range/Units 11:24 17:47 23:35 WBC (3.8-10.6) k/uL RBC (4.30-5.90) m/uL Hgb (13.0-17.5) gm/dL Hct (39.0-53.0) % MCV (80.0-100.0) fL MCH (25.0-35.0) pg MCHC (31.0-37.0) g/dL RDW (11.5-15.5) % Plt Count (150-450) k/uL Neutrophils # (1.3-7.7) k/uL Chloride (98-107) mmol/L BUN (9-20) mg/dL Creatinine (0.66-1.25) mg/dL Glucose (74-99) mg/dL POC Glucose (mg/dL) 126 H 113 H 117 H (70-110) mg/dL 07/12/24 07/12/24 07/12/24 Range/Units 05:32 05:32 05:57 WBC 16.5 H (3.8-10.6) k/uL RBC 3.87 L (4.30-5.90) m/uL Hgb 8.2 L (13.0-17.5) gm/dL Hct 28.6 L (39.0-53.0) % MCV 73.9 L (80.0-100.0) fL MCH 21.0 L (25.0-35.0) pg MCHC 28.4 L (31.0-37.0) g/dL RDW 17.0 H (11.5-15.5) % Plt Count 629 H (150-450) k/uL Neutrophils # 14.5 H (1.3-7.7) k/uL Chloride 112 H (98-107) mmol/L BUN 21 H (9-20) mg/dL Creatinine 0.60 L (0.66-1.25) mg/dL Glucose 110 H (74-99) mg/dL POC Glucose (mg/dL) 118 H (70-110) mg/dL 07/12/24 Range/Units 06:05 WBC (3.8-10.6) k/uL RBC (4.30-5.90) m/uL Hgb (13.0-17.5) gm/dL Hct (39.0-53.0) % MCV (80.0-100.0) fL MCH (25.0-35.0) pg MCHC (31.0-37.0) g/dL RDW (11.5-15.5) % Plt Count (150-450) k/uL Neutrophils # (1.3-7.7) k/uL Chloride (98-107) mmol/L BUN (9-20) mg/dL Creatinine (0.66-1.25) mg/dL Glucose (74-99) mg/dL POC Glucose (mg/dL) 113 H (70-110) mg/dL Microbiology - Last 24 Hours (Table) 07/02/24 09:32 Fungal Culture - Preliminary Bronchoalviolar Lavage - Right 07/02/24 09:32 Acid Fast Bacilli Smear - Preliminary Bronchoalviolar Lavage - Right Acid Fast Bacilli Culture - Preliminary Assessment and Plan Assessment: 1. Bilateral internal carotid artery stenosis with fibrofatty thrombus 2. New acute/subacute high right parietal lobe 3. Altered mental status changes, right parietal/temporal acute/subacute ischemia with a evolving bilateral ischemic CVAs 4. Occlusive right internal jugular vein DVT 5. Left distal subclavian and axillary veins positive for DVT 6. Stage IV lung cancer 7. Diabetes mellitus 8. Hypertension 9. Hyperlipidemia, 10. History of right upper extremity DVT on Lovenox Plan: Patient remains poor candidate for surgical intervention for internal carotid arteries despite new acute/subacute infarct. Will continue conservative medical management at this time. Will continue to follow recommendations from adjunct nursing faculty and neurologist. We will continue to evaluate neurological status and give recommendations along the way. No plans at this time for any vascular surgical intervention. Recommend repeat discussion with patient's and family regarding goals of care. Thank you for this consultation, we will continue to follow. The impression and plan of care has been dictated as directed. Dr. Mace I performed a history and examination of this patient, discussed the same with the dictator. I agree with the dictator's note ,documented as a scribe. Any additional findings or plans will be noted.
[2024-07-12] MEDS: PIPERACILLIN-TAZOBACTAM 3.375 GM in SODIUM CHLORIDE 0.9% 100 ML IVPB SCH (09:55)
[2024-07-12] MEDS: NOREPINEPHRINE 8 MG in SODIUM CHLORIDE 0.9% 250 ML IV SCH (10:23)
--- NOTE | 2024-07-12 11:24 | P.PN ---
Subjective Progress Note Date: 07/12/24 Principal diagnosis: Acute hypoxic respiratory failure secondary to poor neurological status/CVA/inability to protect airways requiring intubation on 06/30/2024 and stage IV lung cancer 68-year-old black male with a history of multiple medical problems including advanced lung cancer, right pleural effusion, hyperlipidemia, hypertension, GERD, type 2 diabetes. The patient presented to the emergency department, at about 8:00 PM on June 30, with strokelike symptoms. He apparently was found to have slurred speech. He apparently became incoherent, and was apparently str uggling to move the left side of his body. EMS was called and he was brought into the emergency department. The patient apparently was not able to protect his airway, and required intubation and mechanical ventilation. I did speak to Dr. Rodriguez in the emergency department. The patient is transferred to the intensive care unit, for further monitoring and management. The patient's drug screen was positive for opiates and cocaine. That may have had some effect on his neurologic issues. He is currently on volume assist-control, rate 20, tidal volume 500, FiO2 40%, PEEP of 5. Blood gases initially showed a pO2 that was greater than 420, pCO2 29, pH of 7.49. The patient is on propofol at 30 mcg/kg/min, saline at 120 cc an hour. When the patient came to the intensive care unit, we placed a right radial art line, a left subclavian triple-lumen catheter, and because his endotracheal tube was defective, we replaced the endotracheal tube with a #8 endotracheal tube. Current laboratory data includes a white count of 8.6, hemoglobin 7.8, hematocrit 26.6, platelet count of 508,000. Sodium 135, potassium 3.2, chlorides 108, CO2 21, BUN 5, and creatinine 0.58. Calcium 7.5, magnesium 1.5. Albumin 2. Urine is negative. Drug screen was positive for opiates, oxycodone, and cocaine. Viral studies were negative. Chest x-ray showed an opacified right hemithorax. Progress note dated July 02, 2024. 68-year-old black male seen today in room 255. His , flew up from [place] last night, and is at the bedside. The patient is currently on volume assist- control, rate 20, tidal volume 500, FiO2 40%, PEEP of 5. Blood gases show pO2 172, pCO2 25, pH of 7.48. The FiO2 was reduced down to 30%. The patient is on propofol at 20 mcg/kg/min, norepinephrine at 33 mcg/min, heparin via weight- based protocol, and saline at 120 cc an hour. The patient CT scan of the brain revealed a an evolving CVA, involving the right side, with left-sided weakness. The patient will have tube feeds started. In addition, chest x-ray reveals an opacified right hemithorax, and bronchoscopy will be done this morning. White count 15.2, hemoglobin 8.8, hematocrit 29.1, platelet count of 659,000. PT 12.8, INR 1.2. Sodium 137, potassium 3.6, chlorides 111, CO2 19, BUN 4, creatinine 0.47. Glucose was 164. Calcium 7.6. Magnesium 1.6. Chest x-ray reveals a right opacified hemithorax. CT scan of the reveals acute/subacute ischemia in the right parietotemporal area, and right frontal lobe. Progress note dated July 03, 2024. 68-year-old black male seen again in room 255. The patient has a history of lung cancer, advanced. The patient presented with neurologic findings, and was found to have a right sided CVA, and more recently, a another CT scan of the brain revealed additional damage to the left side of his brain. The patient remains on the ventilator. He is on volume assist-control, rate 20, tidal volume 500, 30% FiO2, PEEP of 5. Blood gases show pO2 117, pCO2 of 28, pH of 7.44. The patient is on norepinephrine at 33 mcg/min, propofol at 20 mcg/kg/min, 0.9 to 120 cc an hour, and heparin via weight-based protocol. The patient is getting vital high-protein at 10 cc an hour. Repeat brain CT showing extension, was done yesterday, July 02. He now has bilateral ischemic strokes. The patient only moves his left lower extremity. Because of his higher doses of norepinephrine, will add vasopressin. His procalcitonin level was within normal range. We will check a cortisol level for adrenal insufficiency. Chest x-ray shows an opacified right chest. Bronchoscopy yesterday revealed significant secretions and disease, in the right lower lobe. White count 30.7, hemoglobin 8.3, hematocrit 28.2, platelet count 611,000. PTT is 42.7. Sodium 137, potassium 3.5, chlorides 116, CO2 17, BUN 4, creatinine 0.40. Glucose 131. Cultures thus far negative. Procalcitonin level is normal. Chest x-ray is unchanged. 07/04/2024, the patient is being seen for a follow-up. This morning, the patient remains sedated on propofol which is running at 20 mcg/kg/min. Remains intubated on the mechanical ventilator. He is on assist-control mode of mechanical ventilation at rate of 20, tidal volume of 500, FiO2 of 30% with a PEEP of 5. The peak airway pressure is 19. Chest x-ray from today shows complete opacification of the right lung. ET tube is in a good location. Left lung is relatively clear and there is a small left-sided pleural effusion. The blood gases from today showed a pH of 7.43 with a pCO2 of 30 and pO2 of 109. The patient has limited respiratory secretions. There is considerable amount of air leak around the ET tube and a cuff is probably blown. The bronchoscopy was done and the cultures were essentially negative. The patient is covered empirically with IV Zosyn. He remains hypotensive and he remains on norepinephrine which is running at 0.25 mcg/kg/min. IV fluids are running at 125 cc an hour of normal saline. Patient remains on IV heparin. The net fluid balance over the past 24 hours and has been in the order of 2.7 L. Blood work from today shows a white cell count of 26, hemoglobin of 8 and a platelet count of 586. Sodium is at 136, potassium is at 3.6, chloride is 1 of 15 with a bicarb of 19. BUN is 5 with a creatinine of 0.44. LFTs are essentially within normal limits. Serum cortisol is 22.3. Blood culture is negative. Bronchoscopy and the bronchoalveolar lavage there is also negative. Enteral feeding is currently on hold due to high residuals. Prior to that, the patient was on vital high-protein at the rate of 10 cc an hour. 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 He has minimal withdrawal in his left upper extremity and lower extremities and does not move his right side. Negative for Babinski sign on the left and the right foot is equivocal. Pupils are pinpoint and unreactive and the patient remains on propofol. Neurology is on the case. Vascular surgery has been consulted regarding the bilateral carotid artery disease. No plans to do a KAREN at this point in time. 07/05/2024, the patient is being seen for a follow-up. Remains intubated on mechanical ventilator. Earlier this morning, the patient was taken off sedation and the brief neurologic examination that was done revealed that the patient was not able to move his right upper and right lower extremity. He was able to move his fingers and toes upon demand on the left side. Extremely weak cough. Unable to raise his head of the bed. Poor coughing and gagging reflex at this point in time. He does have a preferential gaze in his looking into the left upper corner and the pupils are equal and reactive to light around 2 to 3 mm in size. Repeat carotid Doppler was done and the patient was found to have bilateral thrombus visualized in the bilateral internal carotid arteries that appear acute in nature and moving during real-time examination. It seems to be the clots are larger in the left internal carotid artery. There is also occlusive right internal jugular vein DVT. On examination, the patient was also noted to have swelling in his left upper extremity. Ultrasound Doppler of the left upper extremity revealed a positive DVT in the left distal subclavian and axillary veins. The patient remains on IV heparin. The patient remains on mechanical ventilator. This morning, he is on assist-control mode with rate of 20, tidal volume of 500, FiO2 of 30% with a PEEP of 5. The blood gas showed a pH of 7.46 with a pCO2 of 28 and pO2 119. Fluid balance is +1 L over the past 24 hours. The patient was taken off pressors as of yesterday morning. He remains on normal saline which is running at 120 cc an hour and the patient is also on vital high-protein for enteral feeding at rate of 30 cc an hour. Chest x-ray from today shows volume loss in addition to complete opacification of the right lung. Left lung remains essentially clear. Tube is in a good location. Blood work from today shows a white cell count of 14 with a hemoglobin of 8.3 and a platelet count of 533. The PTT is therapeutic. BUN is 6 with a creatinine of 0.4 and sodium is at 138 and a bicarb deficit 18. LFTs are essentially within normal limits. The bronchoscopy endobronchial lavage that was done earlier yielded Serratia marcescens and the patient remains on IV Zosyn. On 07/06/2024, the patient remains intubated on the mechanical ventilator. Earlier this morning, the patient was on propofol that was running at 25 mcg/kg/min. Subsequently, the propofol was discontinued at around 7 AM. The patient is arousable. He is following simple commands. Extremely weak. Unable to raise his head. Unable to cough. He is moving his left upper and left lower extremity. There is a weak designer writer with his left hand and is able to wiggle his toes. There is flaccid paralysis on the right side. Meanwhile, the patient is having increased respiratory secretions. The patient is currently on mechanical ventilator assist-control mode with rate of 20, tidal volume of 500, FiO2 30% with a PEEP of 5. The chest x-ray shows complete opacification of the right lung, patchy infiltration in the left infrahilar and left lower lobe area is se en in the patient's sputum sample was positive for Serratia marcescens. The patient remains on broad-spectrum antibiotics and the patient remains on IV Zosyn. Still his blood gases show a pH of 7.49 with a pCO2 of 27 and pO2 112. Normal saline was running at the rate of 40 cc an hour. The patient is currently off norepinephrine. The patient remains on IV heparin. The patient is on vital high-protein which is running at a rate of 50 cc an hour for enteral feeding and nutritional support. WBC count of 10.5 with a hemoglobin of 8 and a platelet count of 508. The sodium is at 139, potassium is at 3.3, bicarb is at 19, BUN is at 8 with a creatinine of 0.4. He was having some liquidy stool and stool was checked for C. difficile and it came back negative. On 07/07/2024, patient's condition essentially unchanged. Patient is currently on low-dose Precedex at 0.3 mcg/kg/h. More sedated this morning. Was unable to follow any commands. Will gradually wean off the Precedex and reevaluate his mentation. A follow-up CAT scan of the brain was done today and the patient was found to have no evidence of any intracranial bleed. Nevertheless, there was multiple infarcts and the patient had evolving acute/subacute infarct involving the left head of the caudate nucleus and left carlos radiata extending inferiorly into the posterior basal ganglia. In addition, there was acute infarct in the inferior right parietal region extending to the posterior superior temporal lobe. There was also persistent subacute infarct hide posterior bilateral frontal lobes and there is also background mild to moderate continuation and periventricular white matter changes. There is also possibly evolution of an infarct in the right cerebellar region. The patient remains on IV heparin. Hemodynamically stable. Remains on the mechanical ventilator assist-control mode with rate of 20, tidal volume of 500, FiO2 30% with a PEEP of 5. Blood gas shows a pH of 7.47 with a pCO2 of 23 and pO2 116. Not a candidate for extubation due to his significant neurologic impairment and poor ability to maintain his airway patency and poor coughing. The patient remains on normal saline at rate of 50 cc an hour. The patient is on vital high-protein at rate of 70. He was having diarrhea and stool for C. difficile was negative. WBC count is at 9.9 with a hemoglobin 7.9 and a platelet count of 495. BUN is 11 with a creatinine of 0.5. Sodium levels at 138 and a potassium level is at 3.7. Chloride is 117. Otherwise, no other significant events over the past 24 hours. On 07/08/2024, the patient is on Precedex running at 0.4 mcg/kg/h. Arousable, following simple commands, motor function left upper and left lower extremity is improved. The patient is on normal citrate of 50 cc an hour. The patient is on assist-control mode of mechanical ventilation at rate of 20, tidal volume of 500, FiO2 30% with a PEEP of 5. Remains on IV Zosyn regarding Serratia marcescens in his lungs and the patient is stable left perihilar/infrahilar and left lower lobe pulmonary filtrate. Right lung remains completely opacified. The patient is known to have stage IV pulm adenocarcinoma. The blood gas from today showed a pH of 7.47 with a pCO2 28 and a pO2 of 100. Fluid balance is +2.8 L over the past 24 hours and the patient is on vital high-protein at rate of 70 cc an hour. Diarrhea has subsided. The patient's white cell count of 9.6 with a hemoglobin of 7.5 and a platelet count of 447. The BUN is 16 with a creatinine of 0.47 and a sodium levels at 138 and a potassium level 3.7. I had a lengthy discussion with the . The is not interested in end-of-life care. The patient's is interested in ongoing respiratory care and tracheostomy if needed. I gave the option of extubation and evaluating the patient's respiratory status. Will reintubate if the patient fails extubation and we will going to consider tracheostomy at that point in time. The was agreeable to that. Based on all this, I am going to wean the patient off Precedex and extubate the patient monitoring very closely here in the intensive care unit. He was also started on Lasix 40 mg IV every 12 hours and the patient was noted to be in a positive fluid balance. On 07/09/2024, the patient remains extubated and the patient is currently on 2 L of oxygen by nasal cannula. Lethargic, arousable, profoundly weak, flaccid paralysis on the right, significant weakness on the left. Weak cough. No significant respiratory secretions. No respiratory distress. He is in sinus tachycardia. He is on normal saline at rate of 50 cc an hour. IV fluids will be switched to KVO. He is on Lasix 40 mg every 12 hours and the patient is negative for balance of 3.2 L over the past 24 hours. He is having diarrhea. Enteral feeding for nutritional support is being continued and the patient has an NG tube in place. Chest x-ray shows patchy infiltration in the left perihilar/left lower lobe area. Right lung is completely opacified. Remains on IV Zosyn. Afebrile. White cell count 16 with a hemoglobin 8.4 and a platelet count of 619. Electrolytes are all stable, BUN is 40 with a creatinine of 0.5. On 09/10/2023, the patient is on room air oxygen. He seems to be quite lethargic. Neurologically unchanged. Absent motor function in the right upper and right lower extremity. Minimal activity on the left. Continues to have a weak cough. NG tube in place and the patient continues to receive vital AF at rate of 40 cc an hour. He is having diarrhea and the fecal management system was applied. He is receiving Lomotil in the stool for C. difficile has been negative. He is on IV Lasix 40 mg every 12 hours and the fluid balance is -3.9 L over the past 24 hours and the patient shows some improvement in the lower extremity and upper extremity edema. He is currently on the Lovenox 80 mg SQ every 12 hours. Remains on IV Zosyn. No chest x-ray from today. Chest x-ray from yesterday shows opacification of the right lung with some limited infiltration of the left perihilar and left lower lobe. No significant respiratory secretions. Remains slightly tachycardic currently on metoprolol 12.5 mg p.o. twice a day.Labs were noted. The white cell count is at 13 with a hemoglobin of 8.4 and a platelet count of 645. BUN is 12 with a creatinine of 0.5. Potassium is at 4.1 and sodium is at 140. Patient was seen today on 07/11/2024, patient remains in the ICU, he has right- sided paralysis, he is on room air, does not seem to be in any distress, receiving vital AF at 73 cc/h, chest x-ray continues to show significant opacification of the right lung, suspect this is secondary to endobronchial malignancy involving right mainstem bronchus and right lower lobe as well as right middle lobe. Patient is marginal at best continues to have a weak cough, nasogastric tube is in place, no more diarrhea, patient does have a fecal system management for diarrhea, C. difficile screening was negative. Remains on Lasix, remains on Lovenox 80 mg subcu every 12 hours is also on Zosyn, chest x-ray is showing no change, continues to have opacified right lung. Left perihilar infiltrate involving mostly lingula and left lower lobe. Continues to have WBC count of 13.8 hemoglobin is 8.2 electrolytes are normal renal profile is normal Patient was seen today on 07/12/2024, remains in the ICU, mental status and neurological status is about the same repeat CT of the brain showed worsening and new CVA involving the right parietal area patient is being followed by neurology, patient has marginal blood pressure, may require norepinephrine if he does not improve much with fluids patient remains on Lovenox 80 mg twice daily remains on antibiotics for his Serratia marcescens infection overall the patient is not doing great. He is on vital AF at 70 cc/h for nutritional support. Apparently the family has been approached regarding his quality of life and CODE STATUS, family is still decided to keep him full code for now. Objective - Vital Signs Vital signs: Vital Signs Temp 100.0 F H 07/12/24 08:00 Pulse 111 H 07/12/24 10:00 Resp 40 H 07/12/24 10:00 BP 82/55 07/12/24 10:00 Pulse Ox 96 07/12/24 10:00 FiO2 3 07/09/24 04:00 Intake & Output 07/11/24 07/12/24 07/12/24 18:59 06:59 18:59 Intake Total 1121 1186 464.433 Output Total 1315 1710 910 Balance -194 -524 -445.567 Weight 73.7 kg 74.7 kg Intake: IV 266 256 320 Magnesium Sulfate-D5w Pmx 125 1 gm In Dextrose/Water 1 100ml.bag @ 100 mls/hr IVPB Q1H [facility] Rx#: [id number] Piperacillin-Tazobactam 3 100 .375 gm In Sodium Chloride 0.9% 100 ml @ 25 mls/hr IVPB Q8H [facility]IK[facility] Rx#: [id number] Sodium Chloride 0.9% 1, 230 220 80 000 ml @ 20 mls/hr IV . Q24H [facility] Rx#:[id number] pressure bag 36 36 15 Intake, IV Titration 4.433 Amount Norepinephrine 8 mg In 4.433 Sodium Chloride 0.9% 250 ml @ 0.03 MCG/KG/MIN 4. 336 mls/hr IV .Q24H NIK[facility] Rx#:[id number] Tube Feeding 855 840 140 Other 90 Output: Urine 1315 1210 910 Stool 500 Other: Voiding Method Indwelling Catheter Indwelling Catheter ABP, PAP, CO, CI - Last Documented Arterial Blood Pressure 76/47 - Exam General: Chronically ill looking 68-year-old male Derm: Warm, dry Head: Atraumatic, normocephalic, symmetric Eyes: PERRLA, EOMI, nonicteric, right-sided gaze preference is noted, upward gaze is also noted. Minimal periorbital edema noted. Mouth: Moist mucous membranes, Cardiovascular: Distant S1-S2, no S3 gallop, no murmur. Lungs: Coarse of breath sounds on the left side, diminished on the right side. Abdominal: Soft nontender no MAG no rebound no guarding Ext: No clubbing, trace of edema noted in the right upper extremity, no cyanosis. Neuro: Nonverbal right side is paralyzed including able to move left side. Follows simple commands, wiggles toes, very weakly squeezes fingers, no gag reflex, no cough with suctioning Psych: Not fully assessed - Labs CBC & Chem 7: 07/12/24 05:32 07/12/24 09:48 Labs: Abnormal Lab Results - Last 24 Hours (Table) 07/11/24 07/11/24 07/11/24 Range/Units 11:24 17:47 23:35 WBC (3.8-10.6) k/uL RBC (4.30-5.90) m/uL Hgb (13.0-17.5) gm/dL Hct (39.0-53.0) % MCV (80.0-100.0) fL MCH (25.0-35.0) pg MCHC (31.0-37.0) g/dL RDW (11.5-15.5) % Plt Count (150-450) k/uL Neutrophils # (1.3-7.7) k/uL Potassium (3.5-5.1) mmol/L Chloride (98-107) mmol/L BUN (9-20) mg/dL Creatinine (0.66-1.25) mg/dL Glucose (74-99) mg/dL POC Glucose (mg/dL) 126 H 113 H 117 H (70-110) mg/dL 07/12/24 07/12/24 07/12/24 Range/Units 05:32 05:32 05:57 WBC 16.5 H (3.8-10.6) k/uL RBC 3.87 L (4.30-5.90) m/uL Hgb 8.2 L (13.0-17.5) gm/dL Hct 28.6 L (39.0-53.0) % MCV 73.9 L (80.0-100.0) fL MCH 21.0 L (25.0-35.0) pg MCHC 28.4 L (31.0-37.0) g/dL RDW 17.0 H (11.5-15.5) % Plt Count 629 H (150-450) k/uL Neutrophils # 14.5 H (1.3-7.7) k/uL Potassium (3.5-5.1) mmol/L Chloride 112 H (98-107) mmol/L BUN 21 H (9-20) mg/dL Creatinine 0.60 L (0.66-1.25) mg/dL Glucose 110 H (74-99) mg/dL POC Glucose (mg/dL) 118 H (70-110) mg/dL 07/12/24 07/12/24 Range/Units 06:05 09:48 WBC (3.8-10.6) k/uL RBC (4.30-5.90) m/uL Hgb (13.0-17.5) gm/dL Hct (39.0-53.0) % MCV (80.0-100.0) fL MCH (25.0-35.0) pg MCHC (31.0-37.0) g/dL RDW (11.5-15.5) % Plt Count (150-450) k/uL Neutrophils # (1.3-7.7) k/uL Potassium 3.4 L (3.5-5.1) mmol/L Chloride (98-107) mmol/L BUN (9-20) mg/dL Creatinine (0.66-1.25) mg/dL Glucose (74-99) mg/dL POC Glucose (mg/dL) 113 H (70-110) mg/dL Microbiology - Last 24 Hours (Table) 07/02/24 09:32 Fungal Culture - Preliminary Bronchoalviolar Lavage - Right 07/02/24 09:32 Acid Fast Bacilli Smear - Preliminary Bronchoalviolar Lavage - Right Acid Fast Bacilli Culture - Preliminary Assessment and Plan Assessment: Impression: Acute respiratory failure, requiring intubation/mechanical ventilation, secondary to poor neurologic status secondary to CVA, and inability to protect airway, 06/30/2024 Right parietal/temporal acute/subacute ischemic CVA, with evolving bilateral ischemic CVAs. Most recent CAT scan of the brain on 07/02/2024 shows evolving multifocal acute/subacute CVA and the patient was found to have multiple scattered hypoattenuating areas throughout the brain with miranda/white matter loss. stage IV lung cancer, the patient is known to have pulm adenocarcinoma the patient has been receiving Tabrecta on outpatient basis and his treatment was essentially to [facility]. He is known to have chronic volume loss and a chronic right-sided pleural effusion. The mass in his right upper lobe/hilum was causing right upper lobe bronchus and the right lower lobe bronchus and the patient has developed chronic right-sided pleural effusion/atelectasis which has remained unchanged on serial x-rays. Chronic persistent right-sided pleural effusion, with the possibility of postobstructive pneumonia involving the right and the left lower lobe pneumonia and the patient is currently on IV Zosyn. Ultrasound was reviewed, could not perform right-sided thoracentesis Right IJ DVT Left axillary and subclavian vein DVT and the patient has a subclavian triple- lumen catheter in place on the left Hypertension Hyperlipidemia Diabetes mellitus type 2 Polysubstance abuse including cocaine Acute leukocytosis Anemia of chronic disease Acid reflux Diarrhea, stool for C. difficile negative. Recommendation: Continue Lovenox 80 mg subcu every 12 hours Continue Zosyn Continue diuretics/Lasix Pressors if needed for low blood pressure or marginal blood pressure Patient is not a candidate for any surgical intervention Continue GI prophylaxis/Protonix Continue aspirin Remains very high risk for reintubation Overall prognosis extremely poor CODE STATUS remains full code Patient is critically ill Critical care time is over 30 Will continue to follow Time with Patient: Greater than 30
[2024-07-12 11:46] LABS: Glucose,Whole Blood 110 mg/dL (70-110)
--- NOTE | 2024-07-12 13:37 | P.PN ---
Subjective Progress Note Date: 07/12/24 Hospital Course: 68-year-old man with stage IV lung cancer on immunotherapy, diabetes mellitus, HTN, HLD, recent upper extremity DVT on blood thinners at home, GERD, who presented to the ED with left-sided weakness and altered mental status. Patient was intubated in the ER for airway protection, CTA head and neck showed fibrofatty thrombus within bilateral proximal internal carotid arteries creating 75 stenosis on the right and 90% stenosis in the left, patient was not a candidate for TNK per interventional neurology who was contacted by ED. Vascular surgery was consulted, recommended continue anticoagulation and Plavix as well as transfer to tertiary care facility for thrombectomy per interventional neurology. That was discussed with patient's family by hospitalist team, patient's declined transfer at that time and wanted to see how patient progresses in our facility. Repeat CT of the brain revealed multiple bilateral embolic infarcts, cardiology was consulted for KAREN and recommended against the study due to no history of arrhythmia and known bilateral carotid artery stenosis and thrombus. Patient's ETT was exchanged on 07/04. Vascular surgery recommended transfer to tertiary care facility for thrombectomy. Patient's declined transfer at that time given the patient multiple cormorbidities. Repeat CT of the brain revealed multiple bilateral embolic infarcts. Cardiology was consulted for KAREN and recommended against the study due to no history of arrhythmia and known bilateral carotid artery stenosis and thrombus. He did undergo TTE however which showed preserved EF of 55% with no shunt. Patient did undergo bronchoscopy with BAL on 06/30 which was consistent with right lung collapse. BAL cultures grew Serratia and patient was started on Zosyn. Patient with foul smelling diarrhea with rectal tube in place, C. diff was negative. He was extubated successfully on 07/08. Started on Lasix 40 mg IV BID on 07/08 and he has been diuresing well. 07/12, patient is on room air, very lethargic, was only able to weakly squeeze fingers on command. Patient continues to be full code per family wishes . Repeat CT brain 07/11 showed new acute/subacute infarct involving in the higher lobe, redemonstration of multiple bilateral evolving subacute infarct Subjective: [] Pertinent positives and negatives as discussed above, a complete review of syst ems was performed and all other systems are negative. Vitals Signs Reviewed. General: [nontoxic], [no distress], [appears at stated age] Derm: [warm], [dry] Head: [atraumatic], [normocephalic], [symmetric] Eyes: [EOMI], [no lid lag], [anicteric sclera] Mouth: [no lip lesion], [mucus membranes moist] Cardiovascular: [S1S2 reg], [no murmur] Lungs: [CTA bilateral], [no rhonchi, no rales] , [no accessory muscle use] Abdominal: [soft], [ nontender to palpation], [no guarding], [no appreciable org anomegaly] Ext: [no gross muscle atrophy], [no edema], [no contractures] Neuro: [ CN II-XI grossly intact], [no focal neuro deficits] Psych: [Alert], [oriented], [appropriate affect] Data Reviewed Today: Pertinent Labs: Persistent leukocytosis, 16.5, hemoglobin stable above 8, persistent thrombocytosis, normal sodium and potassium, creatinine 0.6 Imaging: CT brain from 07/11 as mentioned above, chest x-ray 07/12 with no significant changes Assessment and Plan: Acute multifocal embolic ischemic strokes Bilateral carotid artery thrombosis Acute encephalopathy secondary to above Dysphagia secondary to above Occlusive right internal jugular vein DVT Left distal subclavian and axillary veins positive for DVT -Continue aspirin, Lipitor, Lovenox 80 mg twice daily; vascular surgery following, no plan for inpatient intervention; -no KAREN planned per cardiology -Repeat CT brain from 07/11: New acute/subacute right parietal strokes -Neurology following, vascular surgery on board -Overall very poor prognosis -Ongoing goals of care discussions, patient remains full code Acute hypoxic respiratory failure likely due to stroke, inability to protect airway, right lung collapse, requiring intubation, status postextubation 07/08/2024 Possible component of aspiration acute leukocytosis likely secondary to PNA, BAL cultures positive for Serratia And acute thrombocytosis Acute on chronic microcytic anemia -Patient is on room air -Completed Zosyn -Continue breathing treatment -Repeat blood cultures negative, urine cultures negative Acute diarrhea -Negative C. difficile, continue loperamide [Chronic:] Type II DM: Continue with ISS, Accu-Cheks, hypoglycemia protocol Stage IV lung cancer HTN HLD Anticipated discharge place: tbd Anticipated discharge time: tbd Objective - Vital Signs Vital signs: Vital Signs Temp 100.4 F H 07/12/24 12:00 Pulse 112 H 07/12/24 13:10 Resp 43 H 07/12/24 13:10 BP 103/74 07/12/24 13:10 Pulse Ox 98 07/12/24 13:10 FiO2 3 07/09/24 04:00 Intake & Output 07/11/24 07/12/24 07/12/24 18:59 06:59 18:59 Intake Total 1121 1186 559.174 Output Total 1315 1710 1060 Balance -194 -524 -500.826 Weight 73.7 kg 74.7 kg Intake: IV 266 256 366 Magnesium Sulfate-D5w Pmx 125 1 gm In Dextrose/Water 1 100ml.bag @ 100 mls/hr IVPB Q1H [facility] Rx#: [id number] Piperacillin-Tazobactam 3 100 .375 gm In Sodium Chloride 0.9% 100 ml @ 25 mls/hr IVPB Q8H [facility] Rx#: [id number] Sodium Chloride 0.9% 1, 230 220 120 000 ml @ 20 mls/hr IV . Q24H [facility] Rx#:[id number] pressure bag 36 36 21 Intake, IV Titration 33.174 Amount Norepinephrine 8 mg In 33.174 Sodium Chloride 0.9% 250 ml @ 0.03 MCG/KG/MIN 4. 336 mls/hr IV .Q24H [facility] Rx#:[id number] Tube Feeding 855 840 160 Other 90 Output: Urine 1315 1210 1060 Stool 500 Other: Voiding Method Indwelling Catheter Indwelling Catheter Indwelling Catheter ABP, PAP, CO, CI - Last Documented Arterial Blood Pressure 109/62 - Labs CBC & Chem 7: 07/12/24 05:32 07/12/24 09:48 Labs: Abnormal Lab Results - Last 24 Hours (Table) 07/11/24 07/11/24 07/12/24 Range/Units 17:47 23:35 05:32 WBC (3.8-10.6) k/uL RBC (4.30-5.90) m/uL Hgb (13.0-17.5) gm/dL Hct (39.0-53.0) % MCV (80.0-100.0) fL MCH (25.0-35.0) pg MCHC (31.0-37.0) g/dL RDW (11.5-15.5) % Plt Count (150-450) k/uL Neutrophils # (1.3-7.7) k/uL Potassium (3.5-5.1) mmol/L Chloride 112 H (98-107) mmol/L BUN 21 H (9-20) mg/dL Creatinine 0.60 L (0.66-1.25) mg/dL Glucose 110 H (74-99) mg/dL POC Glucose (mg/dL) 113 H 117 H (70-110) mg/dL 24 24 07/12/24 Range/Units 05:32 05:57 06:05 WBC 16.5 H (3.8-10.6) k/uL RBC 3.87 L (4.30-5.90) m/uL Hgb 8.2 L (13.0-17.5) gm/dL Hct 28.6 L (39.0-53.0) % MCV 73.9 L (80.0-100.0) fL MCH 21.0 L (25.0-35.0) pg MCHC 28.4 L (31.0-37.0) g/dL RDW 17.0 H (11.5-15.5) % Plt Count 629 H (150-450) k/uL Neutrophils # 14.5 H (1.3-7.7) k/uL Potassium (3.5-5.1) mmol/L Chloride (98-107) mmol/L BUN (9-20) mg/dL Creatinine (0.66-1.25) mg/dL Glucose (74-99) mg/dL POC Glucose (mg/dL) 118 H 113 H (70-110) mg/dL 07/12/24 Range/Units 09:48 WBC (3.8-10.6) k/uL RBC (4.30-5.90) m/uL Hgb (13.0-17.5) gm/dL Hct (39.0-53.0) % MCV (80.0-100.0) fL MCH (25.0-35.0) pg MCHC (31.0-37.0) g/dL RDW (11.5-15.5) % Plt Count (150-450) k/uL Neutrophils # (1.3-7.7) k/uL Potassium 3.4 L (3.5-5.1) mmol/L Chloride (98-107) mmol/L BUN (9-20) mg/dL Creatinine (0.66-1.25) mg/dL Glucose (74-99) mg/dL POC Glucose (mg/dL) (70-110) mg/dL Microbiology - Last 24 Hours (Table) 07/02/24 09:32 Fungal Culture - Preliminary Bronchoalviolar Lavage - Right 07/02/24 09:32 Acid Fast Bacilli Smear - Preliminary Bronchoalviolar Lavage - Right Acid Fast Bacilli Culture - Preliminary
[2024-07-12 17:53] LABS: Glucose,Whole Blood 105 mg/dL (70-110)
[2024-07-12 23:28] LABS: Glucose,Whole Blood 93 mg/dL (70-110)
--- NOTE | 2024-07-13 01:26 | XR ---
EXAM: XR Chest, 1 View CLINICAL HISTORY: Dobbhoff placement TECHNIQUE: Frontal view of the chest. COMPARISON: Same day at 816 hour. IMPRESSION: Tip of the enteric tube reached the body of the stomach but not completely included in the field of view. No substantial change otherwise.
--- NOTE | 2024-07-13 04:36 | P.PCN ---
Date of Procedure: 07/13/24 Preoperative Diagnosis: Dysphagia, malnutrition, enteral feeding Postoperative Diagnosis: Dysphagia, malnutrition, enteral feeding Procedure(s) Performed: Insertion of a Dobbhoff feeding tube with IRIS technology Indications for Procedure: Poor nutritional intake and dysphagia Description of Procedure: Patient's was called, and informed consent was obtained. A 12 Sami Dobbhoff catheter was inserted through the right nare assisted with IRIS technology. Direct visualization of the esophagus, coursing into the body of the stomach, with visualization of the rugae folds, catheter was then advanced through the pyloris into the duodenum with direct visualization of the intestinal villi. Catheter was secured at 75 cm. Patient tolerated the procedure well without complications. Enteric tube placement confirmed with chest x-ray. Stylette was removed.
[2024-07-13 05:59] LABS: Glucose,Whole Blood 94 mg/dL (70-110)
[2024-07-13 06:16] LABS: Anisocytosis Slight; Basophils # (A) 0.1 k/uL (0-0.2); Basophils % (A) 0 %; Eosinophils # (A) 0.2 k/uL (0-0.7); Eosinophils % (A) 1 %; HCT 29.2 % (39.0-53.0); HGB 8.2 gm/dL (13.0-17.5); Hypochromasia Marked; Lymphocytes # (A) 1.2 k/uL (1.0-4.8); Lymphocytes % (A) 6 %; MCH 21.3 pg (25.0-35.0); MCV 76.1 fL (80.0-100.0); Mean Platelet Volume 6.8; Microcytosis Slight; Monocytes # (A) 0.8 k/uL (0-1.0); Monocytes % (A) 4 %; Neutrophils # (A) 19.3 k/uL (1.3-7.7); Neutrophils % (A) 89 %; Platelet Count 693 k/uL (150-450); RBC 3.84 m/uL (4.30-5.90); RDW 16.9 % (11.5-15.5); WBC 21.6 k/uL (3.8-10.6)
[2024-07-13 06:31] LABS: ALT 14 U/L (4-49); AST 32 U/L (17-59); African American GFR (CKD) >90 (>60 ml/min/1.73 sqM); Albumin 2.2 g/dL (3.5-5.0); Alkaline Phosphatase 93 U/L (38-126); Anion Gap 4 mmol/L; Blood Urea Nitrogen 23 mg/dL (9-20); Calcium 8.5 mg/dL (8.4-10.2); Carbon Dioxide 31 mmol/L (22-30); Chloride 112 mmol/L (98-107); Glucose 94 mg/dL (74-99); Magnesium 1.9 mg/dL (1.6-2.3); Non-African American GFR(CKD) >90 (>60 ml/min/1.73 sqM); Potassium 3.9 mmol/L (3.5-5.1); Sodium 147 mmol/L (137-145); Total Bilirubin 0.4 mg/dL (0.2-1.3); Total Protein 5.8 g/dL (6.3-8.2)
[2024-07-13] MEDS: POTASSIUM BICARBONATE/CIT AC 20 MEQ TABLET.EFF NG-TUBE SCH (07:10)
[2024-07-13] MEDS: DEXTROSE 5% IN WATER 1,000 ML IV SCH (09:11)
--- NOTE | 2024-07-13 09:22 | P.PN ---
Subjective Progress Note Date: 07/12/24 Patient was initially seen by Dr. Nahun Mendoza, then followed up with Dr Mcfadden. Patient was seen by Dr. Mendoza yesterday. Today I'm the first time seeing this patient. Please reviewed to their notes for details. Patient is a 68-year-old male with bilateral hemispheric stroke and asymptomatic bilateral ICA stenosis. Vascular surgery is on board. Patient has history of an last lung disease and history of DVT and is currently on Lovenox and aspirin. Patient was seen for a follow-up. Patient's also present at this time. She mentioned that patient is doing well. He has a lot of mucus on his lungs. They're trying to pull the mucus. Patient is laying in the bed. In no acute distress. Objective - Vital Signs Vital signs: Vital Signs Temp 99.1 F 07/12/24 16:10 Pulse 112 H 07/12/24 16:30 Resp 34 H 07/12/24 16:30 BP 101/72 07/12/24 16:05 Pulse Ox 98 07/12/24 16:30 FiO2 3 07/09/24 04:00 Intake & Output 07/11/24 07/12/24 07/12/24 18:59 06:59 18:59 Intake Total 1121 1186 565.174 Output Total 1315 1710 1130 Balance -194 -524 -564.826 Weight 73.7 kg 74.7 kg Intake: IV 266 256 372 Magnesium Sulfate-D5w Pmx 125 1 gm In Dextrose/Water 1 100ml.bag @ 100 mls/hr IVPB Q1H [facility] Rx#: [id number] Piperacillin-Tazobactam 3 100 .375 gm In Sodium Chloride 0.9% 100 ml @ 25 mls/hr IVPB Q8H [facility] Rx#: [id number] Sodium Chloride 0.9% 1, 230 220 120 000 ml @ 20 mls/hr IV . Q24H [facility] Rx#:[id number] pressure bag 36 36 27 Intake, IV Titration 33.174 Amount Norepinephrine 8 mg In 33.174 Sodium Chloride 0.9% 250 ml @ 0.03 MCG/KG/MIN 4. 336 mls/hr IV .Q24H [facility] Rx#:[id number] Tube Feeding 855 840 160 Other 90 Output: Urine 1315 1210 1130 Stool 500 Other: Voiding Method Indwelling Catheter Indwelling Catheter Indwelling Catheter ABP, PAP, CO, CI - Last Documented Arterial Blood Pressure 83/51 - Exam Patient is an elderly Afro-[place] male, laying in the bed, in no acute dis tress. He is encephalopathic. Patient is not speaking. Pupils are equal, round and reacting. Oculocephalics are absent. Patient has bilateral pronator drift. On muscle strength testing, the manager desktop is 0 on the right, 4+ left. Ankle dorsiflexion is 0 on the right, 3 on the left. Patient brings down his arms equally bilaterally on checking pronator drift. Patient has peripheral edema. No obvious seizure-like activity. - Labs CBC & Chem 7: 07/13/24 05:58 07/13/24 05:58 Labs: Abnormal Lab Results - Last 24 Hours (Table) 07/11/24 07/11/24 07/12/24 Range/Units 17:47 23:35 05:32 WBC (3.8-10.6) k/uL RBC (4.30-5.90) m/uL Hgb (13.0-17.5) gm/dL Hct (39.0-53.0) % MCV (80.0-100.0) fL MCH (25.0-35.0) pg MCHC (31.0-37.0) g/dL RDW (11.5-15.5) % Plt Count (150-450) k/uL Neutrophils # (1.3-7.7) k/uL Potassium (3.5-5.1) mmol/L Chloride 112 H (98-107) mmol/L BUN 21 H (9-20) mg/dL Creatinine 0.60 L (0.66-1.25) mg/dL Glucose 110 H (74-99) mg/dL POC Glucose (mg/dL) 113 H 117 H (70-110) mg/dL 07/12/24 07/12/24 07/12/24 Range/Units 05:32 05:57 06:05 WBC 16.5 H (3.8-10.6) k/uL RBC 3.87 L (4.30-5.90) m/uL Hgb 8.2 L (13.0-17.5) gm/dL Hct 28.6 L (39.0-53.0) % MCV 73.9 L (80.0-100.0) fL MCH 21.0 L (25.0-35.0) pg MCHC 28.4 L (31.0-37.0) g/dL RDW 17.0 H (11.5-15.5) % Plt Count 629 H (150-450) k/uL Neutrophils # 14.5 H (1.3-7.7) k/uL Potassium (3.5-5.1) mmol/L Chloride (98-107) mmol/L BUN (9-20) mg/dL Creatinine (0.66-1.25) mg/dL Glucose (74-99) mg/dL POC Glucose (mg/dL) 118 H 113 H (70-110) mg/dL 07/12/24 Range/Units 09:48 WBC (3.8-10.6) k/uL RBC (4.30-5.90) m/uL Hgb (13.0-17.5) gm/dL Hct (39.0-53.0) % MCV (80.0-100.0) fL MCH (25.0-35.0) pg MCHC (31.0-37.0) g/dL RDW (11.5-15.5) % Plt Count (150-450) k/uL Neutrophils # (1.3-7.7) k/uL Potassium 3.4 L (3.5-5.1) mmol/L Chloride (98-107) mmol/L BUN (9-20) mg/dL Creatinine (0.66-1.25) mg/dL Glucose (74-99) mg/dL POC Glucose (mg/dL) (70-110) mg/dL Microbiology - Last 24 Hours (Table) 07/02/24 09:32 Fungal Culture - Preliminary Bronchoalviolar Lavage - Right 07/02/24 09:32 Acid Fast Bacilli Smear - Preliminary Bronchoalviolar Lavage - Right Acid Fast Bacilli Culture - Preliminary Assessment and Plan Assessment: This is a 68-year-old gentleman who presents to the emergency department via EMS because of left-sided weakness dysarthria, then became unresponsive with left gaze deviation. Symptoms began on 06/30/2024 at 2 PM that was noted by his cousin then he was taken to a doctor's appointment at when his left-sided weakness and other symptoms happened. His urine drug screen was positive for cocaine, oxycodone and opiates. His CT angiography shows significant bilateral CTA stenosis Multifocal ischemic stroke and it seems embolic in nature. On examination is limited but has spontaneous movement of the left upper extremity and plegic over the right side. Episode of unresponsiveness due to multifactorial could be due to above as well as polysubstance abuse Significant left ICA stenosis, the right is 75% stenosis, and the left is 90% stenosis on CT angiography. This is symptomatic. History is advanced stage IV lung cancer History of recurrent right-sided pleural effusion Status post respiratory failure. History of right IJ DVT, left axillary and subclavian vein DVT Hypertension History of hyperlipidemia Underlying history of diabetes mellitus Polysubstance abuse Plan: Patient is on aspirin 81 mg. Patient is also on Lovenox 80 mg every 12 hours. Lipid panel with cholesterol 62, LDL 24, HDL 23 and triglycerides 71. Patient is on Lipitor 80 mg daily. Hemoglobin A1c 5.2 2-D echo revealed preserved LV systolic function with EF 55%. No obvious regional wall motion abnormalities. Normal left atrial size. Negative agitated saline bubble study for [id number] shunt. No significant valvular abno rmalities. Vascular surgery is on board regarding the significant carotid stenosis bilaterally and Dr. Mendoza had spoken to vascular surgery N.P. and stated no surgical intervention as an inpatient and the likely perform surgical intervention as an outpatient on the right first especially since he has movement over the left side to preserve the movement on left side. Continue neurochecks Cardiac monitoring Cardiology was consulted and they did not feel KAREN was needed because of significant carotid stenosis. PT, OT and CONTROL MANAGER are consulted Will defer the rest of the medical management to primary other specialist For DVT prophylaxis On loveonx. Discussed with patient's .
[2024-07-13] MEDS: FUROSEMIDE 10 MG/ML 4 ML VIAL IV SCH (09:30)
--- NOTE | 2024-07-13 09:41 | P.PN ---
Subjective Progress Note Date: 07/13/24 Pt appears in distress today from dyspnea, breathing is shallow, labored, fast. Pt is DNI. GoC convo pending today with family Gen: In significant distress from dyspnea, non-toxic HEENT: normocephalic, atraumatic, hearing acuity is intant, mucous membranes moist CVS: perfusing all extremities well, no pitting edema, Respiratory: symmetric chest expansion, accessory muscle use is present, tachypnea GI: soft, NTTP, ND, : no suprapubic tenderness, no CVA tenderness MSK/Derm: no rashes, cyanosis Neuro: CN II-XII intact, right-sided motor weakness, Hospital Course: 68-year-old man with stage IV lung cancer on immunotherapy, diabetes mellitus, HTN, HLD, recent upper extremity DVT on blood thinners at home, GERD, who presented to the ED with left-sided weakness and altered mental status. Patient was intubated in the ER for airway protection, CTA head and neck showed fibrofatty thrombus within bilateral proximal internal carotid arteries creating 75 stenosis on the right and 90% stenosis in the left, patient was not a candidate for TNK per interventional neurology who was contacted by ED. Vascular surgery was consulted, recommended continue anticoagulation and Plavix as well as transfer to tertiary care facility for thrombectomy per interventional neurology. That was discussed with patient's family by hospitalist team, patient's declined transfer at that time and wanted to see how patient progresses in our facility. Repeat CT of the brain revealed multiple bilateral embolic infarcts, cardiology was consulted for KAREN and recommended against the study due to no history of arrhythmia and known bilateral carotid artery stenosis and thrombus. Patient's ETT was exchanged on 07/04. Vascular surgery recommended transfer to tertiary care facility for thrombectomy. Patient's declined transfer at that time given the patient multiple cormorbidities. Repeat CT of the brain revealed multiple bilateral embolic infarcts. Cardiology was consulted for KAREN and recommended against the study due to no history of arrhythmia and known bilateral carotid artery stenosis and thrombus. He did undergo TTE however which showed preserved EF of 55% with no shunt. Patient did undergo bronchoscopy with BAL on 06/30 which was consistent with right lung collapse. BAL cultures grew Serratia and patient was started on Zosyn. Patient with foul smelling diarrhea with rectal tube in place, C. diff was negative. He was extubated successfully on 07/08. Started on Lasix 40 mg IV BID on 07/08 and he has been diuresing well. 07/12, patient is on room air, very lethargic, was only able to weakly squeeze fingers on command. Patient continues to be full code per family wishes . Repeat CT brain 07/11 showed new acute/subacute infarct involving in the higher lobe, redemonstration of multiple bilateral evolving subacute infarct Assessment and Plan: Acute multifocal embolic ischemic strokes Bilateral carotid artery thrombosis Acute encephalopathy secondary to above Dysphagia secondary to above Occlusive right internal jugular vein DVT Left distal subclavian and axillary veins positive for DVT -Continue aspirin, Lipitor, Lovenox 80 mg twice daily; vascular surgery following, no plan for inpatient intervention; -no KAREN planned per cardiology -Repeat CT brain from 07/11: New acute/subacute right parietal strokes -Neurology following, vascular surgery on board -Overall very poor prognosis -Ongoing goals of care discussions, patient remains full code, but DNI Acute hypoxic respiratory failure likely due to stroke, inability to protect airway, right lung collapse, requiring intubation, status postextubation 07/08/2024 Possible component of aspiration acute leukocytosis likely secondary to PNA, BAL cultures positive for Serratia And acute thrombocytosis Acute on chronic microcytic anemia -Patient is on room air -Completed Zosyn -Continue breathing treatment -Repeat blood cultures negative, urine cultures negative Acute diarrhea -Negative C. difficile, continue loperamide [Chronic:] Type II DM: Continue with ISS, Accu-Cheks, hypoglycemia protocol Stage IV lung cancer HTN HLD Anticipated discharge place: tbd Anticipated discharge time: tbd Objective - Vital Signs Vital signs: Vital Signs Temp 100.4 F H 07/13/24 08:00 Pulse 124 H 07/13/24 09:15 Resp 42 H 07/13/24 09:15 BP 103/71 07/13/24 05:00 Pulse Ox 94 L 07/13/24 09:15 FiO2 3 07/09/24 04:00 Intake & Output 07/12/24 07/13/24 07/13/24 18:59 06:59 18:59 Intake Total 033.107 4545.903 195.267 Output Total 1215 1510 75 Balance -356.742 -350.097 120.267 Weight 72 kg Intake: IV 441 399 26 Magnesium Sulfate-D5w Pmx 125 1 gm In Dextrose/Water 1 100ml.bag @ 100 mls/hr IVPB Q1H [facility] Rx#: [id number] Piperacillin-Tazobactam 3 100 100 .375 gm In Sodium Chloride 0.9% 100 ml @ 25 mls/hr IVPB Q8H [facility] Rx#: [id number] Sodium Chloride 0.9% 1, 180 260 20 000 ml @ 20 mls/hr IV . Q24H [facility] Rx#:[id number] pressure bag 36 39 6 Intake, IV Titration 137.258 150.903 39.267 Amount Norepinephrine 8 mg In 87.258 150.903 39.267 Sodium Chloride 0.9% 250 ml @ 0.03 MCG/KG/MIN 4. 336 mls/hr IV .Q24H [facility] Rx#:[id number] Piperacillin-Tazobactam 3 50 .375 gm In Sodium Chloride 0.9% 100 ml @ 25 mls/hr IVPB Q8H [facility] Rx#: [id number] Tube Feeding 250 490 100 Other 30 120 30 Output: Urine 1215 1510 75 Other: Voiding Method Indwelling Catheter Indwelling Catheter ABP, PAP, CO, CI - Last Documented Arterial Blood Pressure 98/60 - Labs CBC & Chem 7: 07/13/24 05:58 07/13/24 05:58 Labs: Abnormal Lab Results - Last 24 Hours (Table) 07/12/24 07/13/24 07/13/24 Range/Units 09:48 05:58 05:58 WBC 21.6 H (3.8-10.6) k/uL RBC 3.84 L (4.30-5.90) m/uL Hgb 8.2 L (13.0-17.5) gm/dL Hct 29.2 L (39.0-53.0) % MCV 76.1 L (80.0-100.0) fL MCH 21.3 L (25.0-35.0) pg MCHC 28.0 L (31.0-37.0) g/dL RDW 16.9 H (11.5-15.5) % Plt Count 693 H (150-450) k/uL Neutrophils # 19.3 H (1.3-7.7) k/uL Sodium 147 H (137-145) mmol/L Potassium 3.4 L (3.5-5.1) mmol/L Chloride 112 H (98-107) mmol/L Carbon Dioxide 31 H (22-30) mmol/L BUN 23 H (9-20) mg/dL Creatinine 0.60 L (0.66-1.25) mg/dL Total Protein 5.8 L (6.3-8.2) g/dL Albumin 2.2 L (3.5-5.0) g/dL
--- NOTE | 2024-07-13 10:10 | P.PN ---
Subjective Progress Note Date: 07/13/24 Principal diagnosis: Acute hypoxic respiratory failure secondary to poor neurological status/CVA/inability to protect airways requiring intubation on 06/30/2024 and stage IV lung cancer 68-year-old black male with a history of multiple medical problems including advanced lung cancer, right pleural effusion, hyperlipidemia, hypertension, GERD, type 2 diabetes. The patient presented to the emergency department, at about 8:00 PM on June 30, with strokelike symptoms. He apparently was found to have slurred speech. He apparently became incoherent, and was apparently str uggling to move the left side of his body. EMS was called and he was brought into the emergency department. The patient apparently was not able to protect his airway, and required intubation and mechanical ventilation. I did speak to Dr. Rodriguez in the emergency department. The patient is transferred to the intensive care unit, for further monitoring and management. The patient's drug screen was positive for opiates and cocaine. That may have had some effect on his neurologic issues. He is currently on volume assist-control, rate 20, tidal volume 500, FiO2 40%, PEEP of 5. Blood gases initially showed a pO2 that was greater than 420, pCO2 29, pH of 7.49. The patient is on propofol at 30 mcg/kg/min, saline at 120 cc an hour. When the patient came to the intensive care unit, we placed a right radial art line, a left subclavian triple-lumen catheter, and because his endotracheal tube was defective, we replaced the endotracheal tube with a #8 endotracheal tube. Current laboratory data includes a white count of 8.6, hemoglobin 7.8, hematocrit 26.6, platelet count of 508,000. Sodium 135, potassium 3.2, chlorides 108, CO2 21, BUN 5, and creatinine 0.58. Calcium 7.5, magnesium 1.5. Albumin 2. Urine is negative. Drug screen was positive for opiates, oxycodone, and cocaine. Viral studies were negative. Chest x-ray showed an opacified right hemithorax. Progress note dated July 02, 2024. 68-year-old black male seen today in room 255. His , flew up from [place] last night, and is at the bedside. The patient is currently on volume assist- control, rate 20, tidal volume 500, FiO2 40%, PEEP of 5. Blood gases show pO2 172, pCO2 25, pH of 7.48. The FiO2 was reduced down to 30%. The patient is on propofol at 20 mcg/kg/min, norepinephrine at 33 mcg/min, heparin via weight- based protocol, and saline at 120 cc an hour. The patient CT scan of the brain revealed a an evolving CVA, involving the right side, with left-sided weakness. The patient will have tube feeds started. In addition, chest x-ray reveals an opacified right hemithorax, and bronchoscopy will be done this morning. White count 15.2, hemoglobin 8.8, hematocrit 29.1, platelet count of 659,000. PT 12.8, INR 1.2. Sodium 137, potassium 3.6, chlorides 111, CO2 19, BUN 4, creatinine 0.47. Glucose was 164. Calcium 7.6. Magnesium 1.6. Chest x-ray reveals a right opacified hemithorax. CT scan of the reveals acute/subacute ischemia in the right parietotemporal area, and right frontal lobe. Progress note dated July 03, 2024. 68-year-old black male seen again in room 255. The patient has a history of lung cancer, advanced. The patient presented with neurologic findings, and was found to have a right sided CVA, and more recently, a another CT scan of the brain revealed additional damage to the left side of his brain. The patient remains on the ventilator. He is on volume assist-control, rate 20, tidal volume 500, 30% FiO2, PEEP of 5. Blood gases show pO2 117, pCO2 of 28, pH of 7.44. The patient is on norepinephrine at 33 mcg/min, propofol at 20 mcg/kg/min, 0.9 to 120 cc an hour, and heparin via weight-based protocol. The patient is getting vital high-protein at 10 cc an hour. Repeat brain CT showing extension, was done yesterday, July 02. He now has bilateral ischemic strokes. The patient only moves his left lower extremity. Because of his higher doses of norepinephrine, will add vasopressin. His procalcitonin level was within normal range. We will check a cortisol level for adrenal insufficiency. Chest x-ray shows an opacified right chest. Bronchoscopy yesterday revealed significant secretions and disease, in the right lower lobe. White count 30.7, hemoglobin 8.3, hematocrit 28.2, platelet count 611,000. PTT is 42.7. Sodium 137, potassium 3.5, chlorides 116, CO2 17, BUN 4, creatinine 0.40. Glucose 131. Cultures thus far negative. Procalcitonin level is normal. Chest x-ray is unchanged. 07/04/2024, the patient is being seen for a follow-up. This morning, the patient remains sedated on propofol which is running at 20 mcg/kg/min. Remains intubated on the mechanical ventilator. He is on assist-control mode of mechanical ventilation at rate of 20, tidal volume of 500, FiO2 of 30% with a PEEP of 5. The peak airway pressure is 19. Chest x-ray from today shows complete opacification of the right lung. ET tube is in a good location. Left lung is relatively clear and there is a small left-sided pleural effusion. The blood gases from today showed a pH of 7.43 with a pCO2 of 30 and pO2 of 109. The patient has limited respiratory secretions. There is considerable amount of air leak around the ET tube and a cuff is probably blown. The bronchoscopy was done and the cultures were essentially negative. The patient is covered empirically with IV Zosyn. He remains hypotensive and he remains on norepinephrine which is running at 0.25 mcg/kg/min. IV fluids are running at 125 cc an hour of normal saline. Patient remains on IV heparin. The net fluid balance over the past 24 hours and has been in the order of 2.7 L. Blood work from today shows a white cell count of 26, hemoglobin of 8 and a platelet count of 586. Sodium is at 136, potassium is at 3.6, chloride is 1 of 15 with a bicarb of 19. BUN is 5 with a creatinine of 0.44. LFTs are essentially within normal limits. Serum cortisol is 22.3. Blood culture is negative. Bronchoscopy and the bronchoalveolar lavage there is also negative. Enteral feeding is currently on hold due to high residuals. Prior to that, the patient was on vital high-protein at the rate of 10 cc an hour. 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 He has minimal withdrawal in his left upper extremity and lower extremities and does not move his right side. Negative for Babinski sign on the left and the right foot is equivocal. Pupils are pinpoint and unreactive and the patient remains on propofol. Neurology is on the case. Vascular surgery has been consulted regarding the bilateral carotid artery disease. No plans to do a KAREN at this point in time. 07/05/2024, the patient is being seen for a follow-up. Remains intubated on mechanical ventilator. Earlier this morning, the patient was taken off sedation and the brief neurologic examination that was done revealed that the patient was not able to move his right upper and right lower extremity. He was able to move his fingers and toes upon demand on the left side. Extremely weak cough. Unable to raise his head of the bed. Poor coughing and gagging reflex at this point in time. He does have a preferential gaze in his looking into the left upper corner and the pupils are equal and reactive to light around 2 to 3 mm in size. Repeat carotid Doppler was done and the patient was found to have bilateral thrombus visualized in the bilateral internal carotid arteries that appear acute in nature and moving during real-time examination. It seems to be the clots are larger in the left internal carotid artery. There is also occlusive right internal jugular vein DVT. On examination, the patient was also noted to have swelling in his left upper extremity. Ultrasound Doppler of the left upper extremity revealed a positive DVT in the left distal subclavian and axillary veins. The patient remains on IV heparin. The patient remains on mechanical ventilator. This morning, he is on assist-control mode with rate of 20, tidal volume of 500, FiO2 of 30% with a PEEP of 5. The blood gas showed a pH of 7.46 with a pCO2 of 28 and pO2 119. Fluid balance is +1 L over the past 24 hours. The patient was taken off pressors as of yesterday morning. He remains on normal saline which is running at 120 cc an hour and the patient is also on vital high-protein for enteral feeding at rate of 30 cc an hour. Chest x-ray from today shows volume loss in addition to complete opacification of the right lung. Left lung remains essentially clear. Tube is in a good location. Blood work from today shows a white cell count of 14 with a hemoglobin of 8.3 and a platelet count of 533. The PTT is therapeutic. BUN is 6 with a creatinine of 0.4 and sodium is at 138 and a bicarb deficit 18. LFTs are essentially within normal limits. The bronchoscopy endobronchial lavage that was done earlier yielded Serratia marcescens and the patient remains on IV Zosyn. On 07/06/2024, the patient remains intubated on the mechanical ventilator. Earlier this morning, the patient was on propofol that was running at 25 mcg/kg/min. Subsequently, the propofol was discontinued at around 7 AM. The patient is arousable. He is following simple commands. Extremely weak. Unable to raise his head. Unable to cough. He is moving his left upper and left lower extremity. 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 There is flaccid paralysis on the right side. Meanwhile, the patient is having increased respiratory secretions. The patient is currently on mechanical ventilator assist-control mode with rate of 20, tidal volume of 500, FiO2 30% with a PEEP of 5. The chest x-ray shows complete opacification of the right lung, patchy infiltration in the left infrahilar and left lower lobe area is se en in the patient's sputum sample was positive for Serratia marcescens. The patient remains on broad-spectrum antibiotics and the patient remains on IV Zosyn. Still his blood gases show a pH of 7.49 with a pCO2 of 27 and pO2 112. Normal saline was running at the rate of 40 cc an hour. The patient is currently off norepinephrine. The patient remains on IV heparin. The patient is on vital high-protein which is running at a rate of 50 cc an hour for enteral feeding and nutritional support. WBC count of 10.5 with a hemoglobin of 8 and a platelet count of 508. The sodium is at 139, potassium is at 3.3, bicarb is at 19, BUN is at 8 with a creatinine of 0.4. He was having some liquidy stool and stool was checked for C. difficile and it came back negative. On 07/07/2024, patient's condition essentially unchanged. Patient is currently on low-dose Precedex at 0.3 mcg/kg/h. More sedated this morning. Was unable to follow any commands. Will gradually wean off the Precedex and reevaluate his mentation. A follow-up CAT scan of the brain was done today and the patient was found to have no evidence of any intracranial bleed. Nevertheless, there was multiple infarcts and the patient had evolving acute/subacute infarct involving the left head of the caudate nucleus and left carlos radiata extending inferiorly into the posterior basal ganglia. In addition, there was acute infarct in the inferior right parietal region extending to the posterior superior temporal lobe. There was also persistent subacute infarct hide posterior bilateral frontal lobes and there is also background mild to moderate continuation and periventricular white matter changes. There is also possibly evolution of an infarct in the right cerebellar region. The patient remains on IV heparin. Hemodynamically stable. Remains on the mechanical ventilator assist-control mode with rate of 20, tidal volume of 500, FiO2 30% with a PEEP of 5. Blood gas shows a pH of 7.47 with a pCO2 of 23 and pO2 116. Not a candidate for extubation due to his significant neurologic impairment and poor ability to maintain his airway patency and poor coughing. The patient remains on normal saline at rate of 50 cc an hour. The patient is on vital high-protein at rate of 70. He was having diarrhea and stool for C. difficile was negative. WBC count is at 9.9 with a hemoglobin 7.9 and a platelet count of 495. BUN is 11 with a creatinine of 0.5. Sodium levels at 138 and a potassium level is at 3.7. Chloride is 117. Otherwise, no other significant events over the past 24 hours. On 07/08/2024, the patient is on Precedex running at 0.4 mcg/kg/h. Arousable, following simple commands, motor function left upper and left lower extremity is improved. The patient is on normal citrate of 50 cc an hour. The patient is on assist-control mode of mechanical ventilation at rate of 20, tidal volume of 500, FiO2 30% with a PEEP of 5. Remains on IV Zosyn regarding Serratia marcescens in his lungs and the patient is stable left perihilar/infrahilar and left lower lobe pulmonary filtrate. Right lung remains completely opacified. The patient is known to have stage IV pulm adenocarcinoma. The blood gas from today showed a pH of 7.47 with a pCO2 28 and a pO2 of 100. Fluid balance is +2.8 L over the past 24 hours and the patient is on vital high-protein at rate of 70 cc an hour. Diarrhea has subsided. The patient's white cell count of 9.6 with a hemoglobin of 7.5 and a platelet count of 447. The BUN is 16 with a creatinine of 0.47 and a sodium levels at 138 and a potassium level 3.7. I had a lengthy discussion with the . The is not interested in end-of-life care. The patient's is interested in ongoing respiratory care and tracheostomy if needed. I gave the option of extubation and evaluating the patient's respiratory status. Will reintubate if the patient fails extubation and we will going to consider tracheostomy at that point in time. The was agreeable to that. Based on all this, I am going to wean the patient off Precedex and extubate the patient monitoring very closely here in the intensive care unit. He was also started on Lasix 40 mg IV every 12 hours and the patient was noted to be in a positive fluid balance. On 07/09/2024, the patient remains extubated and the patient is currently on 2 L of oxygen by nasal cannula. Lethargic, arousable, profoundly weak, flaccid paralysis on the right, significant weakness on the left. Weak cough. No significant respiratory secretions. No respiratory distress. He is in sinus tachycardia. He is on normal saline at rate of 50 cc an hour. IV fluids will be switched to KVO. He is on Lasix 40 mg every 12 hours and the patient is negative for balance of 3.2 L over the past 24 hours. He is having diarrhea. Enteral feeding for nutritional support is being continued and the patient has an NG tube in place. Chest x-ray shows patchy infiltration in the left perihilar/left lower lobe area. Right lung is completely opacified. Remains on IV Zosyn. Afebrile. White cell count 16 with a hemoglobin 8.4 and a platelet count of 619. Electrolytes are all stable, BUN is 40 with a creatinine of 0.5. On 09/10/2023, the patient is on room air oxygen. He seems to be quite lethargic. Neurologically unchanged. Absent motor function in the right upper and right lower extremity. Minimal activity on the left. Continues to have a weak cough. NG tube in place and the patient continues to receive vital AF at rate of 40 cc an hour. He is having diarrhea and the fecal management system was applied. He is receiving Lomotil in the stool for C. difficile has been negative. He is on IV Lasix 40 mg every 12 hours and the fluid balance is -3.9 L over the past 24 hours and the patient shows some improvement in the lower extremity and upper extremity edema. He is currently on the Lovenox 80 mg SQ every 12 hours. Remains on IV Zosyn. No chest x-ray from today. Chest x-ray from yesterday shows opacification of the right lung with some limited infiltration of the left perihilar and left lower lobe. No significant respiratory secretions. Remains slightly tachycardic currently on metoprolol 12.5 mg p.o. twice a day.Labs were noted. The white cell count is at 13 with a hemoglobin of 8.4 and a platelet count of 645. BUN is 12 with a creatinine of 0.5. Potassium is at 4.1 and sodium is at 140. Patient was seen today on 07/11/2024, patient remains in the ICU, he has right- sided paralysis, he is on room air, does not seem to be in any distress, receiving vital AF at 73 cc/h, chest x-ray continues to show significant opacification of the right lung, suspect this is secondary to endobronchial malignancy involving right mainstem bronchus and right lower lobe as well as right middle lobe. Patient is marginal at best continues to have a weak cough, nasogastric tube is in place, no more diarrhea, patient does have a fecal system management for diarrhea, C. difficile screening was negative. Remains on Lasix, remains on Lovenox 80 mg subcu every 12 hours is also on Zosyn, chest x-ray is showing no change, continues to have opacified right lung. Left perihilar infiltrate involving mostly lingula and left lower lobe. Continues to have WBC count of 13.8 hemoglobin is 8.2 electrolytes are normal renal profile is normal Patient was seen today on 07/12/2024, remains in the ICU, mental status and neurological status is about the same repeat CT of the brain showed worsening and new CVA involving the right parietal area patient is being followed by neurology, patient has marginal blood pressure, may require norepinephrine if he does not improve much with fluids patient remains on Lovenox 80 mg twice daily remains on antibiotics for his Serratia marcescens infection overall the patient is not doing great. He is on vital AF at 70 cc/h for nutritional support. Apparently the family has been approached regarding his quality of life and CODE STATUS, family is still decided to keep him full code for now. Seen today on 07/13/2024, patient remains in the ICU, neurological status is about the same, patient is generally weak, he has CVA with left-sided weakness, blood pressure dropped yesterday required norepinephrine presently at 0.1 mcg/kg/min of norepinephrine. His nasogastric tube came off, a Dobbhoff tube was placed last night. Patient remains on enteral feeding. Remains tachycardic and hypotensive, receiving Lopressor at 25 mg daily he is also on D5W 75 cc/h f or hypernatremia. Patient remains quite congested, unable to clear his secretions, family change his CODE STATUS to no intubation, however the patient remains extremely marginal, and overall pulmonary status is very poor. Family is undecided regarding comfort care measures and I think that should be addressed with the family down the line. Chest x-ray is about the same WBC count is 21.6 hemoglobin is 8.2 sodium 147 bicarb is 31 BUN is 23 creatinine 0.60 Objective - Vital Signs Vital signs: Vital Signs Temp 100.4 F H 07/13/24 08:00 Pulse 124 H 07/13/24 09:15 Resp 42 H 07/13/24 09:15 BP 103/71 07/13/24 05:00 Pulse Ox 94 L 07/13/24 09:15 FiO2 3 07/09/24 04:00 Intake & Output 07/12/24 07/13/24 07/13/24 18:59 06:59 18:59 Intake Total 681.869 0973.903 195.267 Output Total 1215 1510 75 Balance -356.742 -350.097 120.267 Weight 72 kg Intake: IV 441 399 26 Magnesium Sulfate-D5w Pmx 125 1 gm In Dextrose/Water 1 100ml.bag @ 100 mls/hr IVPB Q1H [facility] Rx#: [id number] Piperacillin-Tazobactam 3 100 100 .375 gm In Sodium Chloride 0.9% 100 ml @ 25 mls/hr IVPB Q8H [facility] Rx#: [id number] Sodium Chloride 0.9% 1, 180 260 20 000 ml @ 20 mls/hr IV . Q24H [facility] Rx#:[id number] pressure bag 36 39 6 Intake, IV Titration 137.258 150.903 39.267 Amount Norepinephrine 8 mg In 87.258 150.903 39.267 Sodium Chloride 0.9% 250 ml @ 0.03 MCG/KG/MIN 4. 336 mls/hr IV .Q24H [facility] Rx#:[id number] Piperacillin-Tazobactam 3 50 .375 gm In Sodium Chloride 0.9% 100 ml @ 25 mls/hr IVPB Q8H [facility] Rx#: [id number] Tube Feeding 250 490 100 Other 30 120 30 Output: Urine 1215 1510 75 Other: Voiding Method Indwelling Catheter Indwelling Catheter ABP, PAP, CO, CI - Last Documented Arterial Blood Pressure 98/60 - Exam General: Chronically ill looking 68-year-old male on room air, seems to be tachypneic and congested unable to clear his secretions. Derm: Warm, dry Head: Atraumatic, normocephalic, symmetric Eyes: PERRLA, EOMI, nonicteric, right-sided gaze preference is noted, upward gaze is also noted. Minimal periorbital edema noted. Mouth: Moist mucous membranes, Cardiovascular: Distant S1-S2, no S3 gallop, no murmur. Lungs: Coarse of breath sounds on the left side, diminished on the right side. Abdominal: Soft nontender no MAG no rebound no guarding Ext: No clubbing, trace of edema noted in the right upper extremity, no cyanosis. Neuro: Nonverbal right side is paralyzed including able to move left side. It is obtunded. Psych: Could not be assessed - Labs CBC & Chem 7: 07/13/24 05:58 07/13/24 05:58 Labs: Abnormal Lab Results - Last 24 Hours (Table) 07/12/24 07/13/24 07/13/24 Range/Units 09:48 05:58 05:58 WBC 21.6 H (3.8-10.6) k/uL RBC 3.84 L (4.30-5.90) m/uL Hgb 8.2 L (13.0-17.5) gm/dL Hct 29.2 L (39.0-53.0) % MCV 76.1 L (80.0-100.0) fL MCH 21.3 L (25.0-35.0) pg MCHC 28.0 L (31.0-37.0) g/dL RDW 16.9 H (11.5-15.5) % Plt Count 693 H (150-450) k/uL Neutrophils # 19.3 H (1.3-7.7) k/uL Sodium 147 H (137-145) mmol/L Potassium 3.4 L (3.5-5.1) mmol/L Chloride 112 H (98-107) mmol/L Carbon Dioxide 31 H (22-30) mmol/L BUN 23 H (9-20) mg/dL Creatinine 0.60 L (0.66-1.25) mg/dL Total Protein 5.8 L (6.3-8.2) g/dL Albumin 2.2 L (3.5-5.0) g/dL Assessment and Plan Assessment: Impression: Acute respiratory failure, requiring intubation/mechanical ventilation, secondary to poor neurologic status secondary to CVA, and inability to protect airway, 06/30/2024 Right parietal/temporal acute/subacute ischemic CVA, with evolving bilateral ischemic CVAs. Most recent CAT scan of the brain on 07/02/2024 shows evolving multifocal acute/subacute CVA and the patient was found to have multiple scattered hypoattenuating areas throughout the brain with miranda/white matter loss. stage IV lung cancer, the patient is known to have pulm adenocarcinoma the patient has been receiving Tabrecta on outpatient basis and his treatment was essentially to [facility]. He is known to have chronic volume loss and a chronic right-sided pleural effusion. The mass in his right upper lobe/hilum was causing right upper lobe bronchus and the right lower lobe bronchus and the patient has developed chronic right-sided pleural effusion/atelectasis which has remained unchanged on serial x-rays. Chronic persistent right-sided pleural effusion, with the possibility of postobstructive pneumonia involving the right and the left lower lobe pneumonia and the patient is currently on IV Zosyn. Ultrasound was reviewed, could not perform right-sided thoracentesis Right IJ DVT Left axillary and subclavian vein DVT and the patient has a subclavian triple- lumen catheter in place on the left Hypertension Hyperlipidemia Diabetes mellitus type 2 Polysubstance abuse including cocaine Acute leukocytosis Anemia of chronic disease Acid reflux Diarrhea, stool for C. difficile negative. Recommendation: Continue to monitor in the ICU Continue nutritional support/enteral feeding Continue antibiotics/Zosyn Cut down Lasix to 40 mg daily Change IV fluid to D5W for his hypernatremia Continue Lovenox 80 mg SQ twice daily Continue GI DVT prophylaxis Patient not to be intubated as per family's wishes but remains full code otherwise. Continue Lovenox 80 mg subcu every 12 hours Patient is doing poorly, will recommend comfort care measures as the patient has a terminal illness and extremely poor prognosis and extremely poor quality of life Time with Patient: Less than 30
[2024-07-13 12:32] LABS: Glucose,Whole Blood 115 mg/dL (70-110)
[2024-07-13 17:23] LABS: Glucose,Whole Blood 124 mg/dL (70-110)
[2024-07-13 23:35] LABS: Glucose,Whole Blood 131 mg/dL (70-110)
[2024-07-14 04:45] LABS: Glucose,Whole Blood 135 mg/dL (70-110)
[2024-07-14 04:52] LABS: Anisocytosis Slight; HCT 29.2 % (39.0-53.0); HGB 8.3 gm/dL (13.0-17.5); Hypochromasia Marked; MCH 21.1 pg (25.0-35.0); MCHC 28.3 g/dL (31.0-37.0); MCV 74.5 fL (80.0-100.0); Mean Platelet Volume 9.2; Microcytosis Slight; Platelet Count 690 k/uL (150-450); RBC 3.92 m/uL (4.30-5.90); RDW 16.7 % (11.5-15.5); WBC 33.6 k/uL (3.8-10.6)
[2024-07-14 05:23] LABS: ALT 15 U/L (4-49); AST 35 U/L (17-59); African American GFR (CKD) >90 (>60 ml/min/1.73 sqM); Albumin 2.2 g/dL (3.5-5.0); Alkaline Phosphatase 104 U/L (38-126); Anion Gap 2 mmol/L; Blood Urea Nitrogen 24 mg/dL (9-20); Calcium 8.1 mg/dL (8.4-10.2); Carbon Dioxide 36 mmol/L (22-30); Chloride 109 mmol/L (98-107); Glucose 130 mg/dL (74-99); Magnesium 1.9 mg/dL (1.6-2.3); Non-African American GFR(CKD) >90 (>60 ml/min/1.73 sqM); Potassium 3.6 mmol/L (3.5-5.1); Sodium 147 mmol/L (137-145); Total Bilirubin 0.4 mg/dL (0.2-1.3); Total Protein 5.9 g/dL (6.3-8.2)
[2024-07-14 05:38] LABS: Lymphocytes # (M) 0.67 k/uL (1.0-4.8); Monocytes # (M) 0.67 k/uL (0-1.0); Neutrophils # (M) 32.26 k/uL (1.3-7.7); Neutrophils % (M) 96 %; Nucleated Red Blood Cells 0 /100 WBC (0-0); Total Cells Counted 100
[2024-07-14 05:41] LABS: Tear Drop Cells Present
[2024-07-14] MEDS: MAGNESIUM SULFATE-D5W PMX 1 GM in DEXTROSE/WATER 1 100ML.BAG IVPB ONE (06:49)
[2024-07-14] MEDS: POTASSIUM CHLORIDE 10 MEQ in WATER FOR INJECTION 1 100ML.BAG IVPB SCH (06:49)
--- NOTE | 2024-07-14 07:39 | XR ---
EXAMINATION TYPE: XR chest 1V portable DATE OF EXAM: 07/14/2024 5:18 AM COMPARISON: 07/12/2024 CLINICAL INDICATION: Male, 68 years old with history of pneumonia, , FINDINGS: NG tube noted coursing inferiorly outside the [id number]. Prominent air distended stomach again de monstrated. Right heart margin remains obscured by adjacent opacities. Ongoing white out right hemith orax. Some patchy left basilar opacity remains. IMPRESSION: Ongoing white out right hemithorax and some patchy left basilar opacity. [facility], , 07/14/2024 7:37 AM
--- NOTE | 2024-07-14 08:55 | P.PN ---
Subjective Progress Note Date: 07/14/24 Patient is seen and examined today as a follow-up. Patient's health status has been declining, made him a no code yesterday. Patient is tachycardic and tachypneic. He had a Dobbhoff placed yesterday for enteral nutrition. He currently remains encephalopathic, lateral gaze, obtunded. No acute changes with his neurostatus. Objective - Vital Signs Vital signs: Vital Signs Temp 99.8 F H 07/14/24 04:00 Pulse 117 H 07/14/24 07:00 Resp 46 H 07/14/24 07:00 BP 97/63 07/14/24 07:00 Pulse Ox 97 07/14/24 07:00 FiO2 3 07/09/24 04:00 Intake & Output 07/13/24 07/14/24 07/14/24 18:59 06:59 18:59 Intake Total 5660.310 0462.545 0.940 Output Total 1215 370 Balance 422.265 969.545 0.940 Weight 71.5 kg Intake: IV 928 1154 Dextrose 5% in Water 1, 675 975 000 ml @ 75 mls/hr IV . [id number] NIKITA Rx#:[id number] Piperacillin-Tazobactam 3 100 .375 gm In Sodium Chloride 0.9% 100 ml @ 25 mls/hr IVPB Q8H NIKITA Rx#: [id number] Sodium Chloride 0.9% 1, 120 140 000 ml @ 20 mls/hr IV . Q24H NIKITA Rx#:[id number] pressure bag 33 39 Intake, IV Titration 149.265 95.545 0.940 Amount Norepinephrine 8 mg In 149.265 95.545 0.940 Sodium Chloride 0.9% 250 ml @ 0.03 MCG/KG/MIN 4. 336 mls/hr IV .Q24H NIKITA Rx#:[id number] Tube Feeding 500 60 Other 60 30 Output: Urine 1215 320 Stool 50 Other: Voiding Method Indwelling Catheter Indwelling Catheter ABP, PAP, CO, CI - Last Documented Arterial Blood Pressure 95/59 - Exam General appearance: The patient is obtunded but arousable. HET: Head is normocephalic and atraumatic. Lateral gaze. Neck: Supple. Heart: Regular. Lungs: Equal expansion. Tachypneic Abdomen: Soft, nondistended. Extremities: Normal skin color and turgor. Bilateral upper extremity swelling, right greater than left. Neurological: Patient is obtunded but arousable. - Labs CBC & Chem 7: 07/14/24 04:44 07/14/24 04:44 Labs: Abnormal Lab Results - Last 24 Hours (Table) 07/13/24 07/13/24 07/13/24 Range/Units 12:30 17:22 23:33 WBC (3.8-10.6) k/uL RBC (4.30-5.90) m/uL Hgb (13.0-17.5) gm/dL Hct (39.0-53.0) % MCV (80.0-100.0) fL MCH (25.0-35.0) pg MCHC (31.0-37.0) g/dL RDW (11.5-15.5) % Plt Count (150-450) k/uL Neutrophils # (Manual) (1.3-7.7) k/uL Lymphocytes # (Manual) (1.0-4.8) k/uL Sodium (137-145) mmol/L Chloride (98-107) mmol/L Carbon Dioxide (22-30) mmol/L BUN (9-20) mg/dL Glucose (74-99) mg/dL POC Glucose (mg/dL) 115 H 124 H 131 H (70-110) mg/dL Calcium (8.4-10.2) mg/dL Total Protein (6.3-8.2) g/dL Albumin (3.5-5.0) g/dL 07/14/24 07/14/24 07/14/24 Range/Units 04:43 04:44 04:44 WBC 33.6 H (3.8-10.6) k/uL RBC 3.92 L (4.30-5.90) m/uL Hgb 8.3 L (13.0-17.5) gm/dL Hct 29.2 L (39.0-53.0) % MCV 74.5 L (80.0-100.0) fL MCH 21.1 L (25.0-35.0) pg MCHC 28.3 L (31.0-37.0) g/dL RDW 16.7 H (11.5-15.5) % Plt Count 690 H (150-450) k/uL Neutrophils # (Manual) 32.26 H (1.3-7.7) k/uL Lymphocytes # (Manual) 0.67 L (1.0-4.8) k/uL Sodium 147 H (137-145) mmol/L Chloride 109 H (98-107) mmol/L Carbon Dioxide 36 H (22-30) mmol/L BUN 24 H (9-20) mg/dL Glucose 130 H (74-99) mg/dL POC Glucose (mg/dL) 135 H (70-110) mg/dL Calcium 8.1 L (8.4-10.2) mg/dL Total Protein 5.9 L (6.3-8.2) g/dL Albumin 2.2 L (3.5-5.0) g/dL Assessment and Plan Assessment: 1. Bilateral internal carotid artery stenosis with fibrofatty thrombus 2. New acute/subacute high right parietal lobe 3. Altered mental status changes, right parietal/temporal acute/subacute ischemia with a evolving bilateral ischemic CVAs 4. Occlusive right internal jugular vein DVT 5. Left distal subclavian and axillary veins positive for DVT on Lovenox 6. Stage IV lung cancer 7. Diabetes mellitus 8. Hypertension 9. Hyperlipidemia, 10. History of right upper extremity DVT on Lovenox Plan: Patient remains poor candidate for surgical intervention for internal carotid thrombus and is now a no CODE STATUS. No plans on any vascular surgical intervention. Continue with medical management. Vascular surgery will sign off at this time, you may reconsult as needed. The impression and plan of care has been dictated as directed. Dr. Myers I performed a history and examination of this patient, discussed the same with the dictator. I agree with the dictator's note ,documented as a scribe. Any additional findings or plans will be noted.
[2024-07-14 09:21] VITALS: TEMP 97.7
--- NOTE | 2024-07-14 10:27 | P.PN ---
Subjective Progress Note Date: 07/13/24 07/13/2024: Patient was seen for a follow-up. Patient is clinically much worse. Patient is more obtunded, encephalopathic. 07/12/2024: Patient was initially seen by Dr. Nahun Mendoza, then followed up with Dr Mcfadden. Patient was seen by Dr. Mendoza yesterday. Today I'm the first time seeing this patient. Please reviewed to their notes for details. Patient is a 68-year-old male with bilateral hemispheric stroke and asymptomatic bilateral ICA stenosis. Vascular surgery is on board. Patient has history of an last lung disease and history of DVT and is currently on Lovenox and aspirin. Patient was seen for a follow-up. Patient's also present at this time. She mentioned that patient is doing well. He has a lot of mucus on his lungs. They're trying to pull the mucus. Patient is laying in the bed. In no acute distress. Objective - Vital Signs Vital signs: Vital Signs Temp 100.5 F H 07/13/24 12:00 Pulse 126 H 07/13/24 15:20 Resp 39 H 07/13/24 15:00 BP 103/71 07/13/24 05:00 Pulse Ox 95 07/13/24 15:00 FiO2 3 07/09/24 04:00 Intake & Output 07/12/24 07/13/24 07/13/24 18:59 06:59 18:59 Intake Total 932.627 3317.903 1173.267 Output Total 1215 1510 1125 Balance -356.742 -350.097 48.267 Weight 72 kg Intake: IV 441 399 674 Dextrose 5% in Water 1, 450 000 ml @ 75 mls/hr IV . [id number] NIKITA Rx#:[id number] Magnesium Sulfate-D5w Pmx 125 1 gm In Dextrose/Water 1 100ml.bag @ 100 mls/hr IVPB Q1H NIKITA Rx#: [id number] Piperacillin-Tazobactam 3 100 100 .375 gm In Sodium Chloride 0.9% 100 ml @ 25 mls/hr IVPB Q8H NIKITA Rx#: [id number] Piperacillin-Tazobactam 3 100 .375 gm In Sodium Chloride 0.9% 100 ml @ 25 mls/hr IVPB Q8H NIKITA Rx#: [id number] Sodium Chloride 0.9% 1, 180 260 100 000 ml @ 20 mls/hr IV . Q24H NIKITA Rx#:[id number] pressure bag 36 39 24 Intake, IV Titration 137.258 150.903 39.267 Amount Norepinephrine 8 mg In 87.258 150.903 39.267 Sodium Chloride 0.9% 250 ml @ 0.03 MCG/KG/MIN 4. 336 mls/hr IV .Q24H NIKITA Rx#:[id number] Piperacillin-Tazobactam 3 50 .375 gm In Sodium Chloride 0.9% 100 ml @ 25 mls/hr IVPB Q8H NIKITA Rx#: [id number] Tube Feeding 250 490 400 Other 30 120 60 Output: Urine 1215 1510 1125 Other: Voiding Method Indwelling Catheter Indwelling Catheter Indwelling Catheter ABP, PAP, CO, CI - Last Documented Arterial Blood Pressure 91/57 - Exam Patient is an elderly Afro-[place]aur[place] male, laying in the bed, in no acute distress. He is significantly encephalopathic. Patient is aphasic. Pupils are equal, round and reacting. Oculocephalics are absent. Patient is worse today. He is not following directions. Patient able to squeeze his left hand, and wiggle his foot little bit on the left. Worse than yesterday. He is completely flaccid on the right side. Patient has peripheral edema. No obvious seizure- like activity. Patient has protuberant belly. He is somewhat tachypneic. - Labs CBC & Chem 7: 07/14/24 04:44 07/14/24 04:44 Labs: Abnormal Lab Results - Last 24 Hours (Table) 07/13/24 07/13/24 07/13/24 Range/Units 05:58 05:58 12:30 WBC 21.6 H (3.8-10.6) k/uL RBC 3.84 L (4.30-5.90) m/uL Hgb 8.2 L (13.0-17.5) gm/dL Hct 29.2 L (39.0-53.0) % MCV 76.1 L (80.0-100.0) fL MCH 21.3 L (25.0-35.0) pg MCHC 28.0 L (31.0-37.0) g/dL RDW 16.9 H (11.5-15.5) % Plt Count 693 H (150-450) k/uL Neutrophils # 19.3 H (1.3-7.7) k/uL Sodium 147 H (137-145) mmol/L Chloride 112 H (98-107) mmol/L Carbon Dioxide 31 H (22-30) mmol/L BUN 23 H (9-20) mg/dL Creatinine 0.60 L (0.66-1.25) mg/dL POC Glucose (mg/dL) 115 H (70-110) mg/dL Total Protein 5.8 L (6.3-8.2) g/dL Albumin 2.2 L (3.5-5.0) g/dL Assessment and Plan Assessment: This is a 68-year-old gentleman who presents to the emergency department via EMS because of left-sided weakness dysarthria, then became unresponsive with left gaze deviation. Symptoms began on 06/30/2024 at 2 PM that was noted by his cousin then he was taken to a doctor's appointment at when his left-sided weakness and other symptoms happened. His urine drug screen was positive for cocaine, oxycodone and opiates. His CT angiography shows significant bilateral CTA stenosis Multifocal ischemic stroke and it seems embolic in nature. On examination is limited but has spontaneous movement of the left upper extremity and plegic over the right side. Episode of unresponsiveness due to multifactorial could be due to above as well as polysubstance abuse Symptomatic bilateral ICA stenosis: CTA revealed fibrofatty thrombus within bilateral proximal ICA creating 75% stenosis on the right, and 90% stenosis on the left. History is advanced stage IV lung cancer History of recurrent right-sided pleural effusion Status post respiratory failure. History of right IJ DVT, left axillary and subclavian vein DVT Hypertension History of hyperlipidemia Underlying history of diabetes mellitus Polysubstance abuse Plan: Patient is on aspirin 81 mg. Patient is also on Lovenox 80 mg every 12 hours. Patient is clinically worse today. CT head 07/11/2024 revealed new acute/subacute infarct involving the high right parietal lobe. Redemonstration of multiple bilateral evolving subacute infarcts. I personally reviewed CT head, agree with the findings. Lipid panel with cholesterol 62, LDL 24, HDL 23 and triglycerides 71. Patient is on Lipitor 80 mg daily. Hemoglobin A1c 5.2 2-D echo revealed preserved LV systolic function with EF 55%. No obvious regional wall motion abnormalities. Normal left atrial size. Negative agitated saline bubble study for [id number] shunt. No significant valvular abnormalities. CTA of head and neck 06/30/2024 revealed fibrofatty thrombus within the bilateral proximal internal carotid arteries creating 75% stenosis on the right and 90% stenosis on the left. No significant intracranial vascular abnormality. Carotid Doppler 07/05/2024 revealed bilateral thrombus visualized within bilateral ICAs, appears acute in nature and moving during real-time exam, is not causing elevated velocities, appears larger in the left ICA. Occlusive right internal jugular vein DVT. Antegrade flow in the right vertebral artery. Left vertebral unable to visualize. Vascular surgery is on board regarding the significant carotid stenosis bilaterally and Dr. Mendoza had spoken to vascular surgery N.P. and stated no surgical intervention as an inpatient and the likely perform surgical intervention as an outpatient on the right first especially since he has movement over the left side to preserve the movement on left side. Continue neurochecks Cardiac monitoring Cardiology was consulted and they did not feel KAREN was needed because of significant carotid stenosis. PT, OT and CONTACT CENTER REPRESENTATIVE are consulted Will defer the rest of the medical management to primary other specialist For DVT prophylaxis On loveonx. Consider palliative/hospice care. Patient DNR.
[2024-07-14] MEDS ORDERED: MORPHINE SULFATE 4 MG/ML SYRINGE IV PRN (11:02)
[2024-07-14] MEDS ORDERED: GLYCOPYRROLATE 0.2 MG/ML 2 ML VIAL IVP PRN (11:02)
[2024-07-14] MEDS ORDERED: LORazepam 2 MG/ML INJ IV PRN (11:02)
--- NOTE | 2024-07-14 11:06 | P.PN ---
Subjective Progress Note Date: 07/14/24 Principal diagnosis: Acute hypoxic respiratory failure secondary to poor neurological status/CVA/inability to protect airways requiring intubation on 06/30/2024 and stage IV lung cancer 68-year-old black male with a history of multiple medical problems including advanced lung cancer, right pleural effusion, hyperlipidemia, hypertension, GERD, type 2 diabetes. The patient presented to the emergency department, at about 8:00 PM on June 30, with strokelike symptoms. He apparently was found to have slurred speech. He apparently became incoherent, and was apparently str uggling to move the left side of his body. EMS was called and he was brought into the emergency department. The patient apparently was not able to protect his airway, and required intubation and mechanical ventilation. I did speak to Dr. Rodriguez in the emergency department. The patient is transferred to the intensive care unit, for further monitoring and management. The patient's drug screen was positive for opiates and cocaine. That may have had some effect on his neurologic issues. He is currently on volume assist-control, rate 20, tidal volume 500, FiO2 40%, PEEP of 5. Blood gases initially showed a pO2 that was greater than 420, pCO2 29, pH of 7.49. The patient is on propofol at 30 mcg/kg/min, saline at 120 cc an hour. When the patient came to the intensive care unit, we placed a right radial art line, a left subclavian triple-lumen catheter, and because his endotracheal tube was defective, we replaced the endotracheal tube with a #8 endotracheal tube. Current laboratory data includes a white count of 8.6, hemoglobin 7.8, hematocrit 26.6, platelet count of 508,000. Sodium 135, potassium 3.2, chlorides 108, CO2 21, BUN 5, and creatinine 0.58. Calcium 7.5, magnesium 1.5. Albumin 2. Urine is negative. Drug screen was positive for opiates, oxycodone, and cocaine. Viral studies were negative. Chest x-ray showed an opacified right hemithorax. Progress note dated July 02, 2024. 68-year-old black male seen today in room 255. His , flew up from [place] last night, and is at the bedside. The patient is currently on volume assist- control, rate 20, tidal volume 500, FiO2 40%, PEEP of 5. Blood gases show pO2 172, pCO2 25, pH of 7.48. The FiO2 was reduced down to 30%. The patient is on propofol at 20 mcg/kg/min, norepinephrine at 33 mcg/min, heparin via weight- based protocol, and saline at 120 cc an hour. The patient CT scan of the brain revealed a an evolving CVA, involving the right side, with left-sided weakness. The patient will have tube feeds started. In addition, chest x-ray reveals an opacified right hemithorax, and bronchoscopy will be done this morning. White count 15.2, hemoglobin 8.8, hematocrit 29.1, platelet count of 659,000. PT 12.8, INR 1.2. Sodium 137, potassium 3.6, chlorides 111, CO2 19, BUN 4, creatinine 0.47. Glucose was 164. Calcium 7.6. Magnesium 1.6. Chest x-ray reveals a right opacified hemithorax. CT scan of the reveals acute/subacute ischemia in the right parietotemporal area, and right frontal lobe. Progress note dated July 03, 2024. 68-year-old black male seen again in room 255. The patient has a history of lung cancer, advanced. The patient presented with neurologic findings, and was found to have a right sided CVA, and more recently, a another CT scan of the brain revealed additional damage to the left side of his brain. The patient remains on the ventilator. He is on volume assist-control, rate 20, tidal volume 500, 30% FiO2, PEEP of 5. Blood gases show pO2 117, pCO2 of 28, pH of 7.44. The patient is on norepinephrine at 33 mcg/min, propofol at 20 mcg/kg/min, 0.9 to 120 cc an hour, and heparin via weight-based protocol. The patient is getting vital high-protein at 10 cc an hour. Repeat brain CT showing extension, was done yesterday, July 02. He now has bilateral ischemic strokes. The patient only moves his left lower extremity. Because of his higher doses of norepinephrine, will add vasopressin. His procalcitonin level was within normal range. We will check a cortisol level for adrenal insufficiency. Chest x-ray shows an opacified right chest. Bronchoscopy yesterday revealed significant secretions and disease, in the right lower lobe. White count 30.7, hemoglobin 8.3, hematocrit 28.2, platelet count 611,000. PTT is 42.7. Sodium 137, potassium 3.5, chlorides 116, CO2 17, BUN 4, creatinine 0.40. Glucose 131. Cultures thus far negative. Procalcitonin level is normal. Chest x-ray is unchanged. 07/04/2024, the patient is being seen for a follow-up. This morning, the patient remains sedated on propofol which is running at 20 mcg/kg/min. Remains intubated on the mechanical ventilator. He is on assist-control mode of mechanical ventilation at rate of 20, tidal volume of 500, FiO2 of 30% with a PEEP of 5. The peak airway pressure is 19. Chest x-ray from today shows complete opacification of the right lung. ET tube is in a good location. Left lung is relatively clear and there is a small left-sided pleural effusion. The blood gases from today showed a pH of 7.43 with a pCO2 of 30 and pO2 of 109. The patient has limited respiratory secretions. There is considerable amount of air leak around the ET tube and a cuff is probably blown. The bronchoscopy was done and the cultures were essentially negative. The patient is covered empirically with IV Zosyn. He remains hypotensive and he remains on norepinephrine which is running at 0.25 mcg/kg/min. IV fluids are running at 125 cc an hour of normal saline. Patient remains on IV heparin. The net fluid balance over the past 24 hours and has been in the order of 2.7 L. Blood work from today shows a white cell count of 26, hemoglobin of 8 and a platelet count of 586. Sodium is at 136, potassium is at 3.6, chloride is 1 of 15 with a bicarb of 19. BUN is 5 with a creatinine of 0.44. LFTs are essentially within normal limits. Serum cortisol is 22.3. Blood culture is negative. Bronchoscopy and the bronchoalveolar lavage there is also negative. Enteral feeding is currently on hold due to high residuals. Prior to that, the patient was on vital high-protein at the rate of 10 cc an hour. 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 He has minimal withdrawal in his left upper extremity and lower extremities and does not move his right side. Negative for Babinski sign on the left and the right foot is equivocal. Pupils are pinpoint and unreactive and the patient remains on propofol. Neurology is on the case. Vascular surgery has been consulted regarding the bilateral carotid artery disease. No plans to do a KAREN at this point in time. 07/05/2024, the patient is being seen for a follow-up. Remains intubated on mechanical ventilator. Earlier this morning, the patient was taken off sedation and the brief neurologic examination that was done revealed that the patient was not able to move his right upper and right lower extremity. He was able to move his fingers and toes upon demand on the left side. Extremely weak cough. Unable to raise his head of the bed. Poor coughing and gagging reflex at this point in time. He does have a preferential gaze in his looking into the left upper corner and the pupils are equal and reactive to light around 2 to 3 mm in size. Repeat carotid Doppler was done and the patient was found to have bilateral thrombus visualized in the bilateral internal carotid arteries that appear acute in nature and moving during real-time examination. It seems to be the clots are larger in the left internal carotid artery. There is also occlusive right internal jugular vein DVT. On examination, the patient was also noted to have swelling in his left upper extremity. Ultrasound Doppler of the left upper extremity revealed a positive DVT in the left distal subclavian and axillary veins. The patient remains on IV heparin. The patient remains on mechanical ventilator. This morning, he is on assist-control mode with rate of 20, tidal volume of 500, FiO2 of 30% with a PEEP of 5. The blood gas showed a pH of 7.46 with a pCO2 of 28 and pO2 119. Fluid balance is +1 L over the past 24 hours. The patient was taken off pressors as of yesterday morning. He remains on normal saline which is running at 120 cc an hour and the patient is also on vital high-protein for enteral feeding at rate of 30 cc an hour. Chest x-ray from today shows volume loss in addition to complete opacification of the right lung. Left lung remains essentially clear. Tube is in a good location. Blood work from today shows a white cell count of 14 with a hemoglobin of 8.3 and a platelet count of 533. The PTT is therapeutic. BUN is 6 with a creatinine of 0.4 and sodium is at 138 and a bicarb deficit 18. LFTs are essentially within normal limits. The bronchoscopy endobronchial lavage that was done earlier yielded Serratia marcescens and the patient remains on IV Zosyn. On 07/06/2024, the patient remains intubated on the mechanical ventilator. Earlier this morning, the patient was on propofol that was running at 25 mcg/kg/min. Subsequently, the propofol was discontinued at around 7 AM. The patient is arousable. He is following simple commands. Extremely weak. Unable to raise his head. Unable to cough. He is moving his left upper and left lower extremity. 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 There is flaccid paralysis on the right side. Meanwhile, the patient is having increased respiratory secretions. The patient is currently on mechanical ventilator assist-control mode with rate of 20, tidal volume of 500, FiO2 30% with a PEEP of 5. The chest x-ray shows complete opacification of the right lung, patchy infiltration in the left infrahilar and left lower lobe area is se en in the patient's sputum sample was positive for Serratia marcescens. The patient remains on broad-spectrum antibiotics and the patient remains on IV Zosyn. Still his blood gases show a pH of 7.49 with a pCO2 of 27 and pO2 112. Normal saline was running at the rate of 40 cc an hour. The patient is currently off norepinephrine. The patient remains on IV heparin. The patient is on vital high-protein which is running at a rate of 50 cc an hour for enteral feeding and nutritional support. WBC count of 10.5 with a hemoglobin of 8 and a platelet count of 508. The sodium is at 139, potassium is at 3.3, bicarb is at 19, BUN is at 8 with a creatinine of 0.4. He was having some liquidy stool and stool was checked for C. difficile and it came back negative. On 07/07/2024, patient's condition essentially unchanged. Patient is currently on low-dose Precedex at 0.3 mcg/kg/h. More sedated this morning. Was unable to follow any commands. Will gradually wean off the Precedex and reevaluate his mentation. A follow-up CAT scan of the brain was done today and the patient was found to have no evidence of any intracranial bleed. Nevertheless, there was multiple infarcts and the patient had evolving acute/subacute infarct involving the left head of the caudate nucleus and left carlos radiata extending inferiorly into the posterior basal ganglia. In addition, there was acute infarct in the inferior right parietal region extending to the posterior superior temporal lobe. There was also persistent subacute infarct hide posterior bilateral frontal lobes and there is also background mild to moderate continuation and periventricular white matter changes. There is also possibly evolution of an infarct in the right cerebellar region. The patient remains on IV heparin. Hemodynamically stable. Remains on the mechanical ventilator assist-control mode with rate of 20, tidal volume of 500, FiO2 30% with a PEEP of 5. Blood gas shows a pH of 7.47 with a pCO2 of 23 and pO2 116. Not a candidate for extubation due to his significant neurologic impairment and poor ability to maintain his airway patency and poor coughing. The patient remains on normal saline at rate of 50 cc an hour. The patient is on vital high-protein at rate of 70. He was having diarrhea and stool for C. difficile was negative. WBC count is at 9.9 with a hemoglobin 7.9 and a platelet count of 495. BUN is 11 with a creatinine of 0.5. Sodium levels at 138 and a potassium level is at 3.7. Chloride is 117. Otherwise, no other significant events over the past 24 hours. On 07/08/2024, the patient is on Precedex running at 0.4 mcg/kg/h. Arousable, following simple commands, motor function left upper and left lower extremity is improved. The patient is on normal citrate of 50 cc an hour. The patient is on assist-control mode of mechanical ventilation at rate of 20, tidal volume of 500, FiO2 30% with a PEEP of 5. Remains on IV Zosyn regarding Serratia marcescens in his lungs and the patient is stable left perihilar/infrahilar and left lower lobe pulmonary filtrate. Right lung remains completely opacified. The patient is known to have stage IV pulm adenocarcinoma. The blood gas from today showed a pH of 7.47 with a pCO2 28 and a pO2 of 100. Fluid balance is +2.8 L over the past 24 hours and the patient is on vital high-protein at rate of 70 cc an hour. Diarrhea has subsided. The patient's white cell count of 9.6 with a hemoglobin of 7.5 and a platelet count of 447. The BUN is 16 with a creatinine of 0.47 and a sodium levels at 138 and a potassium level 3.7. I had a lengthy discussion with the . The is not interested in end-of-life care. The patient's is interested in ongoing respiratory care and tracheostomy if needed. I gave the option of extubation and evaluating the patient's respiratory status. Will reintubate if the patient fails extubation and we will going to consider tracheostomy at that point in time. The was agreeable to that. Based on all this, I am going to wean the patient off Precedex and extubate the patient monitoring very closely here in the intensive care unit. He was also started on Lasix 40 mg IV every 12 hours and the patient was noted to be in a positive fluid balance. On 07/09/2024, the patient remains extubated and the patient is currently on 2 L of oxygen by nasal cannula. Lethargic, arousable, profoundly weak, flaccid paralysis on the right, significant weakness on the left. Weak cough. No significant respiratory secretions. No respiratory distress. He is in sinus tachycardia. He is on normal saline at rate of 50 cc an hour. IV fluids will be switched to KVO. He is on Lasix 40 mg every 12 hours and the patient is negative for balance of 3.2 L over the past 24 hours. He is having diarrhea. Enteral feeding for nutritional support is being continued and the patient has an NG tube in place. Chest x-ray shows patchy infiltration in the left perihilar/left lower lobe area. Right lung is completely opacified. Remains on IV Zosyn. Afebrile. White cell count 16 with a hemoglobin 8.4 and a platelet count of 619. Electrolytes are all stable, BUN is 40 with a creatinine of 0.5. On 09/10/2023, the patient is on room air oxygen. He seems to be quite lethargic. Neurologically unchanged. Absent motor function in the right upper and right lower extremity. Minimal activity on the left. Continues to have a weak cough. NG tube in place and the patient continues to receive vital AF at rate of 40 cc an hour. He is having diarrhea and the fecal management system was applied. He is receiving Lomotil in the stool for C. difficile has been negative. He is on IV Lasix 40 mg every 12 hours and the fluid balance is -3.9 L over the past 24 hours and the patient shows some improvement in the lower extremity and upper extremity edema. He is currently on the Lovenox 80 mg SQ every 12 hours. Remains on IV Zosyn. No chest x-ray from today. Chest x-ray from yesterday shows opacification of the right lung with some limited infiltration of the left perihilar and left lower lobe. No significant respiratory secretions. Remains slightly tachycardic currently on metoprolol 12.5 mg p.o. twice a day.Labs were noted. The white cell count is at 13 with a hemoglobin of 8.4 and a platelet count of 645. BUN is 12 with a creatinine of 0.5. Potassium is at 4.1 and sodium is at 140. Patient was seen today on 07/11/2024, patient remains in the ICU, he has right- sided paralysis, he is on room air, does not seem to be in any distress, receiving vital AF at 73 cc/h, chest x-ray continues to show significant opacification of the right lung, suspect this is secondary to endobronchial malignancy involving right mainstem bronchus and right lower lobe as well as right middle lobe. Patient is marginal at best continues to have a weak cough, nasogastric tube is in place, no more diarrhea, patient does have a fecal system management for diarrhea, C. difficile screening was negative. Remains on Lasix, remains on Lovenox 80 mg subcu every 12 hours is also on Zosyn, chest x-ray is showing no change, continues to have opacified right lung. Left perihilar infiltrate involving mostly lingula and left lower lobe. Continues to have WBC count of 13.8 hemoglobin is 8.2 electrolytes are normal renal profile is normal Patient was seen today on 07/12/2024, remains in the ICU, mental status and neurological status is about the same repeat CT of the brain showed worsening and new CVA involving the right parietal area patient is being followed by neurology, patient has marginal blood pressure, may require norepinephrine if he does not improve much with fluids patient remains on Lovenox 80 mg twice daily remains on antibiotics for his Serratia marcescens infection overall the patient is not doing great. He is on vital AF at 70 cc/h for nutritional support. Apparently the family has been approached regarding his quality of life and CODE STATUS, family is still decided to keep him full code for now. Seen today on 07/13/2024, patient remains in the ICU, neurological status is about the same, patient is generally weak, he has CVA with left-sided weakness, blood pressure dropped yesterday required norepinephrine presently at 0.1 mcg/kg/min of norepinephrine. His nasogastric tube came off, a Dobbhoff tube was placed last night. Patient remains on enteral feeding. Remains tachycardic and hypotensive, receiving Lopressor at 25 mg daily he is also on D5W 75 cc/h f or hypernatremia. Patient remains quite congested, unable to clear his secretions, family change his CODE STATUS to no intubation, however the patient remains extremely marginal, and overall pulmonary status is very poor. Family is undecided regarding comfort care measures and I think that should be addressed with the family down the line. Chest x-ray is about the same WBC count is 21.6 hemoglobin is 8.2 sodium 147 bicarb is 31 BUN is 23 creatinine 0.60 Patient was seen today on 07/14/2024, remains in the ICU, patient seems to be getting neurologically worse, does not seem to respond to any stimuli, does not follow any instructions, I believe there is most likely progression of his CVA. Patient is requiring norepinephrine at 0.02 mcg/kg/min remains on D5W at 75 cc/h sodium remains relatively high patient is receiving enteral feeding vital AF via Dobbhoff tube. Having intermittent episodes of residual but will continue nutritional support. Patient remains on Lovenox and on Lasix 40 mg daily is also on Zosyn. Family changed his CODE STATUS to full no code, and I believe family may be willing to go to comfort care measures as his clinical status seems to be getting worse. And prognosis is hopeless Objective - Vital Signs Vital signs: Vital Signs Temp 97.7 F 07/14/24 08:00 Pulse 124 H 07/14/24 10:45 Resp 46 H 07/14/24 10:45 BP 91/65 07/14/24 10:45 Pulse Ox 95 07/14/24 10:45 FiO2 3 07/09/24 04:00 Intake & Output 07/13/24 07/14/24 07/14/24 18:59 06:59 18:59 Intake Total 1314.006 4148.545 311.243 Output Total 1215 370 45 Balance 422.265 969.545 266.243 Weight 71.5 kg Intake: IV 928 1154 264 Dextrose 5% in Water 1, 675 975 225 000 ml @ 75 mls/hr IV . [id number] NIKITA Rx#:[id number] Piperacillin-Tazobactam 3 100 .375 gm In Sodium Chloride 0.9% 100 ml @ 25 mls/hr IVPB Q8H NIKITA Rx#: [id number] Sodium Chloride 0.9% 1, 120 140 30 000 ml @ 20 mls/hr IV . Q24H NIKITA Rx#:[id number] pressure bag 33 39 9 Intake, IV Titration 149.265 95.545 47.243 Amount Norepinephrine 8 mg In 149.265 95.545 47.243 Sodium Chloride 0.9% 250 ml @ 0.03 MCG/KG/MIN 4. 336 mls/hr IV .Q24H NIKITA Rx#:[id number] Tube Feeding 500 60 Other 60 30 Output: Urine 1215 320 45 Stool 50 Other: Voiding Method Indwelling Catheter Indwelling Catheter Indwelling Catheter ABP, PAP, CO, CI - Last Documented Arterial Blood Pressure 72/44 - Exam General: Chronically ill looking 68-year-old male on room air, seems to be tachypneic and congested unable to clear his secretions. Derm: Warm, dry Head: Atraumatic, normocephalic, symmetric Eyes: PERRLA, EOMI, nonicteric, right-sided gaze preference is noted Mouth: Moist mucous membranes, Cardiovascular: Distant S1-S2, no S3 gallop, no murmur. Lungs: Coarse of breath sounds on the left side, diminished on the right side. Abdominal: Soft nontender no MAG no rebound no guarding Ext: No clubbing, trace of edema noted in the right upper extremity, no cyanosis. Neuro: Patient is comatose, does not follow any instructions does not respond even to deep painful stimuli Psych: Could not be assessed - Labs CBC & Chem 7: 07/14/24 04:44 07/14/24 04:44 Labs: Abnormal Lab Results - Last 24 Hours (Table) 07/13/24 07/13/24 07/13/24 Range/Units 12:30 17:22 23:33 WBC (3.8-10.6) k/uL RBC (4.30-5.90) m/uL Hgb (13.0-17.5) gm/dL Hct (39.0-53.0) % MCV (80.0-100.0) fL MCH (25.0-35.0) pg MCHC (31.0-37.0) g/dL RDW (11.5-15.5) % Plt Count (150-450) k/uL Neutrophils # (Manual) (1.3-7.7) k/uL Lymphocytes # (Manual) (1.0-4.8) k/uL Sodium (137-145) mmol/L Chloride (98-107) mmol/L Carbon Dioxide (22-30) mmol/L BUN (9-20) mg/dL Glucose (74-99) mg/dL POC Glucose (mg/dL) 115 H 124 H 131 H (70-110) mg/dL Calcium (8.4-10.2) mg/dL Total Protein (6.3-8.2) g/dL Albumin (3.5-5.0) g/dL 07/14/24 07/14/24 07/14/24 Range/Units 04:43 04:44 04:44 WBC 33.6 H (3.8-10.6) k/uL RBC 3.92 L (4.30-5.90) m/uL Hgb 8.3 L (13.0-17.5) gm/dL Hct 29.2 L (39.0-53.0) % MCV 74.5 L (80.0-100.0) fL MCH 21.1 L (25.0-35.0) pg MCHC 28.3 L (31.0-37.0) g/dL RDW 16.7 H (11.5-15.5) % Plt Count 690 H (150-450) k/uL Neutrophils # (Manual) 32.26 H (1.3-7.7) k/uL Lymphocytes # (Manual) 0.67 L (1.0-4.8) k/uL Sodium 147 H (137-145) mmol/L Chloride 109 H (98-107) mmol/L Carbon Dioxide 36 H (22-30) mmol/L BUN 24 H (9-20) mg/dL Glucose 130 H (74-99) mg/dL POC Glucose (mg/dL) 135 H (70-110) mg/dL Calcium 8.1 L (8.4-10.2) mg/dL Total Protein 5.9 L (6.3-8.2) g/dL Albumin 2.2 L (3.5-5.0) g/dL Assessment and Plan Assessment: Impression: Acute respiratory failure, requiring intubation/mechanical ventilation, secondary to poor neurologic status secondary to CVA, and inability to protect airway, 06/30/2024 Right parietal/temporal acute/subacute ischemic CVA, with evolving bilateral ischemic CVAs. Most recent CAT scan of the brain on 07/02/2024 shows evolving multifocal acute/subacute CVA and the patient was found to have multiple scattered hypoattenuating areas throughout the brain with miranda/white matter loss. stage IV lung cancer, the patient is known to have pulm adenocarcinoma the patient has been receiving Tabrecta on outpatient basis and his treatment was essentially to [facility]. He is known to have chronic volume loss and a chronic right-sided pleural effusion. The mass in his right upper lobe/hilum was causing right upper lobe bronchus and the right lower lobe bronchus and the patient has developed chronic right-sided pleural effusion/atelectasis which has remained unchanged on serial x-rays. Chronic persistent right-sided pleural effusion, with the possibility of postobstructive pneumonia involving the right and the left lower lobe pneumonia and the patient is currently on IV Zosyn. Ultrasound was reviewed, could not perform right-sided thoracentesis Right IJ DVT Left axillary and subclavian vein DVT and the patient has a subclavian triple- lumen catheter in place on the left Hypertension Hyperlipidemia Diabetes mellitus type 2 Polysubstance abuse including cocaine Acute leukocytosis Anemia of chronic disease Acid reflux Diarrhea, stool for C. difficile negative. Recommendation: Supportive care measures, will approach family regarding possibly proceeding to comfort care since this seems to be a medical futility situation. Continue nutritional support/enteral feeding Continue antibiotics/Zosyn Continue diuretics and continue D5W for hypernatremia Continue Lovenox 80 mg SQ twice daily Continue GI DVT prophylaxis Continue Lovenox 80 mg subcu every 12 hours Will continue to address with family possibly going to comfort care measures/hospice. Time with Patient: Less than 30
[2024-07-14] MEDS: MORPHINE SULFATE (100 MG/2 ML) 100 MG in SODIUM CHLORIDE 0.9% 100 ML IV SCH (11:34)
[2024-07-14 13:03] VITALS: RESP 37
[2024-07-14 14:21] VITALS: BP 128/23; PULSE 111
--- NOTE | 2024-07-14 15:26 | P.DS ---
Providers Date of admission: 06/30/24 22:08 Attending physician: Sharron Faye MD Consults: 06/30/24 22:06 Consult Physician Routine Consulting Provider: Qasim Mendoza Consult Reason/Comments: cva, intubated Do you want consulting provider notified?: Already Contacted Consult Physician Routine Consulting Provider: aNhun Mendoza Consult Reason/Comments: cva, ams Do you want consulting provider notified?: Yes 07/01/24 00:06 Consult Physician Routine Consulting Provider: Ynes Mace Consult Reason/Comments: bilateral carotid artery stenosis Do you want consulting provider notified?: Yes Primary care physician: [facility] Course: Final Diagnosis: #. Acute multifocal embolic ischemic strokes #. Bilateral carotid artery thrombosis #. Acute encephalopathy secondary to above #. Dysphagia secondary to above #. Occlusive right internal jugular vein DVT #. Left distal subclavian and axillary veins positive for DVT #. Acute hypoxemic respiratory failure likely due to stroke, inability to protect airway, right lung collapse, requiring intubation, s/p extubation 07/08/2024 #. Possible component of aspiration #. Acute leukocytosis secondary to pneumonia, BAL cultures positive for Serratia #. Acute thrombocytosis #. Acute on chronic microcytic anemia #. Acute diarrhea, negative for C. difficile #. Type 2 diabetes mellitus #. Stage IV lung cancer #. Hypertension #. Hyperlipidemia Hospital Course: Patient is a 68-year-old man with stage IV lung cancer on immunotherapy, diabetes mellitus, HTN, HLD, recent upper extremity DVT on blood thinners at home, GERD, who presented to the ED with left-sided weakness and altered mental status. Patient was intubated in the ER for airway protection, CTA head and neck showed fibrofatty thrombus within bilateral proximal internal carotid arteries creating 75 stenosis on the right and 90% stenosis in the left, patient was not a candidate for TNK per interventional neurology who was contacted by ED. Vascular surgery was consulted, recommended continue anticoagulation and Plavix as well as transfer to tertiary care facility for thrombectomy per interventional neurology. That was discussed with patient's family by hospitalist team, patient's declined transfer at that time and wanted to see how patient progresses in our facility. Repeat CT of the brain revealed multiple bilateral embolic infarcts, cardiology was consulted for KAREN and recommended against the study due to no history of arrhythmia and known bilateral carotid artery stenosis and thrombus. Patient's ETT was exchanged on 07/04. Vascular surgery recommended transfer to tertiary care facility for thrombectomy. Patient's declined transfer at that time given the patient multiple cormorbidities. Repeat CT of the brain revealed multiple bilateral embolic infarcts. Cardiology was consulted for KAREN and recommended against the study due to no history of arrhythmia and known bilateral carotid artery stenosis and thrombus. He did undergo TTE however which showed preserved EF of 55% with no shunt. Patient did undergo bronchoscopy with BAL on 06/30 which was consistent with right lung collapse. BAL cultures grew Serratia and patient was started on Zosyn. Patient with foul smelling diarrhea with rectal tube in place, C. diff was negative. He was extubated successfully on 07/08. Started on Lasix 40 mg IV BID on 07/08 and he has been diuresing well. Repeat CT brain 07/11 showed new acute/subacute infarct involving in the higher lobe, redemonstration of multiple bilateral evolving subacute infarct. Patient unresponsive to verbal commands or pain. Goals of care discussion was had with family and comfort care was agreed upon. Patient at 1433. I saw and evaluated the patient during the salcedo and critical portions of this encounter, and discussed the case in detail with the resident author of this note, I agree with the Assessment and Plan, and my changes, if any, are highlighted in blue. Plan - Discharge Summary Discharge Rx Participant: Yes New Discharge Prescriptions: No Action Ferrous Sulfate [Iron (65 MG Elemental)] 325 mg PO DAILY@0700 Pantoprazole [Protonix] 40 mg PO BID@0700,1600 Atorvastatin [Lipitor] 80 mg PO HS@1900 Enoxaparin [Lovenox] 60 mg SQ Q12HR@0700,1900 Folic Acid 1 mg PO DAILY@0700 HYDROcodone/APAP 10-325MG [Silver 10-325] 1 tab PO Q6H PRN PRN Reason: Moderate To Severe Pain (4-10) Lidocaine 5% Patch [Lidoderm] 1 patch TRANSDERM DAILY@0700 Magnesium Oxide [Mag-Ox] 400 mg PO BID@0700,1600 Sennosides [Senokot] 8.6 mg PO BID Capmatinib Hydrochloride [Tabrecta] 400 mg PO BID@0700,1600 Mirtazapine [Remeron] 15 mg PO HS methocarbamoL [Robaxin-750] 750 mg PO TID Healthshake 1 dose PO TID-W/MEALS Acetaminophen [Tylenol 8 Hour] 650 mg PO Q6H PRN PRN Reason: Pain amLODIPine [Norvasc] 10 mg PO DAILY@0700 polyethylene glycoL 3350 [Miralax] 17 gm PO Q72H PRN PRN Reason: Constipation/no BM x 3 days Discharge Medication List Capmatinib Hydrochloride [Tabrecta] 400 mg PO BID@0700,1600 05/18/24 [History] Ferrous Sulfate [Iron (65 MG Elemental)] 325 mg PO DAILY@0700 05/18/24 [History] Mirtazapine [Remeron] 15 mg PO HS 05/18/24 [History] Atorvastatin [Lipitor] 80 mg PO HS@1900 06/04/24 [History] Pantoprazole [Protonix] 40 mg PO BID@0700,1600 06/04/24 [History] methocarbamoL [Robaxin-750] 750 mg PO TID 06/04/24 [History] Acetaminophen [Tylenol 8 Hour] 650 mg PO Q6H PRN 06/30/24 [History] Enoxaparin [Lovenox] 60 mg SQ Q12HR@0700,1900 06/30/24 [History] Folic Acid 1 mg PO DAILY@0700 06/30/24 [History] HYDROcodone/APAP 10-325MG [Silver 10-325] 1 tab PO Q6H PRN 06/30/24 [History] Healthshake 1 dose PO TID-W/MEALS 06/30/24 [History] Lidocaine 5% Patch [Lidoderm] 1 patch TRANSDERM DAILY@0700 06/30/24 [History] Magnesium Oxide [Mag-Ox] 400 mg PO BID@0700,1600 06/30/24 [History] Sennosides [Senokot] 8.6 mg PO BID 06/30/24 [History] amLODIPine [Norvasc] 10 mg PO DAILY@0700 06/30/24 [History] polyethylene glycoL 3350 [Miralax] 17 gm PO Q72H PRN 06/30/24 [History] Follow up Appointment(s)/Referral(s): Nenita Hess [REFERRING] - 1 Week NENITA MD,[facility] [Primary Care Provider] - 1-2 days
== END 2024-07-14 17:13 | disposition expired | DRG 64 ==
LOC: EC 20:08 → 2SICU 22:08
PROVIDERS: ADMIT Internal Medicine; ATTEND Internal Medicine
PROC: 0BH17EZ Insertion of Endotracheal Airway into Trachea, Via Natural or Artificial Opening (ICD-10-PCS; 2024-06-30)
PROC: 5A1955Z Respiratory Ventilation, Greater than 96 Consecutive Hours (ICD-10-PCS; 2024-06-30)
PROC: 03HY32Z Insertion of Monitoring Device into Upper Artery, Percutaneous Approach (ICD-10-PCS; principal; 2024-07-01)
PROC: 4A133B1 Monitoring of Arterial Pressure, Peripheral, Percutaneous Approach (ICD-10-PCS; 2024-07-01)
PROC: 4A133J1 Monitoring of Arterial Pulse, Peripheral, Percutaneous Approach (ICD-10-PCS; 2024-07-01)
PROC: 02HV33Z Insertion of Infusion Device into Superior Vena Cava, Percutaneous Approach (ICD-10-PCS; 2024-07-01)
PROC: 0B9F8ZX Drainage of Right Lower Lung Lobe, Via Natural or Artificial Opening Endoscopic, Diagnostic (ICD-10-PCS; 2024-07-02)
PROC: 3E043XZ Introduction of Vasopressor into Central Vein, Percutaneous Approach (ICD-10-PCS; 2024-07-03)
PROC: 06HM33Z Insertion of Infusion Device into Right Femoral Vein, Percutaneous Approach (ICD-10-PCS; 2024-07-05)
PROC: 0DH67UZ Insertion of Feeding Device into Stomach, Via Natural or Artificial Opening (ICD-10-PCS; 2024-07-13)
PROC: 3E0G76Z Introduction of Nutritional Substance into Upper GI, Via Natural or Artificial Opening (ICD-10-PCS; 2024-07-13)
DX: I63.033 Cerebral infarction due to thrombosis of bilateral carotid arteries (principal); J15.69 Pneumonia due to other Gram-negative bacteria; J69.0 Pneumonitis due to inhalation of food and vomit; J96.01 Acute respiratory failure with hypoxia; Z66 Do not resuscitate; Z51.5 Encounter for palliative care; J94.2 Hemothorax; G93.49 Other encephalopathy; E46 Unspecified protein-calorie malnutrition; E87.1 Hypo-osmolality and hyponatremia; E87.4 Mixed disorder of acid-base balance; G81.01 Flaccid hemiplegia affecting right dominant side; I82.A12 Acute embolism and thrombosis of left axillary vein; I82.B12 Acute embolism and thrombosis of left subclavian vein; I82.C11 Acute embolism and thrombosis of right internal jugular vein; G81.04 Flaccid hemiplegia affecting left nondominant side; C34.31 Malignant neoplasm of lower lobe, right bronchus or lung; J91.8 Pleural effusion in other conditions classified elsewhere; J98.19 Other pulmonary collapse; R47.1 Dysarthria and anarthria; R29.700 NIHSS score 0; I10 Essential (primary) hypertension; K21.9 Gastro-esophageal reflux disease without esophagitis; R13.10 Dysphagia, unspecified; E87.6 Hypokalemia; F32.A Depression, unspecified; F41.9 Anxiety disorder, unspecified; R19.7 Diarrhea, unspecified; I95.9 Hypotension, unspecified; H51.8 Other specified disorders of binocular movement; E11.9 Type 2 diabetes mellitus without complications; E87.8 Other disorders of electrolyte and fluid balance, not elsewhere classified; F14.10 Cocaine abuse, uncomplicated; E78.5 Hyperlipidemia, unspecified; D63.8 Anemia in other chronic diseases classified elsewhere; D75.839 Thrombocytosis, unspecified; Z79.01 Long term (current) use of anticoagulants; Z79.02 Long term (current) use of antithrombotics/antiplatelets; Z79.82 Long term (current) use of aspirin; Z79.84 Long term (current) use of oral hypoglycemic drugs; Z79.899 Other long term (current) drug therapy; Z68.22 Body mass index [BMI] 22.0-22.9, adult
CPT/HCPCS: 31500; 31624; 36415; 36600; 70450; 70496; 70498; 71045; 76604; 80048; 80053; 80061; 80143; 80179; 80306; 80320; 81003; 82140; 82533; 82550; 82607; 82728; 82805; 83036; 83540; 83550; 83605; 83735; 84132; 84145; 84443; 84466; 84484; 85025; 85027; 85610; 85730; 86850; 86900; 86901; 87040; 87070; 87077; 87086; 87102; 87116; 87186; 87205; 87206; 87324; 87496; 87498; 87502; 87529; 87634; 87635; 87636; 87798; 88108; 88305; 89050; 93005; 93306; 93880; 94002; 94003; 94640; 94760; 95822; 96361; 96374; 96375; 99291